=== PATIENT | female | born 1980 ===

== ENCOUNTER → 2020-01-08 13:36 | Outpatient (BNVA) | payer OTHER, SELFPAY | PROVIDERS: PCP Internal Medicine; Referring Provider Internal Medicine; Visit Provider Nurse Practitioner | DX: Z76.89 Persons encountering health services in other specified circumstances (principal) | CPT/HCPCS: 99214 ==

== ENCOUNTER → 2020-01-10 09:26 | Outpatient (REF) | payer OTHER, SELFPAY ==
--- NOTE | 2020-01-10 09:45 | ECG_ITS ---
Test Reason : RBBB Blood Pressure : / mmHG Vent. Rate : 076 BPM Atrial Rate : 076 BPM P-R Int : 116 ms QRS Dur : 080 ms QT Int : 400 ms P-R-T Axes : 077 043 -07 degrees QTc Int : 450 ms Normal sinus rhythm Nonspecific T wave abnormality Abnormal ECG When compared with ECG of 19-JUL-2019 02:36, Right bundle branch block is no longer Present Referred By: Trisha Aaron Electronically Signed By:JANA TUCKER
[2020-01-10 11:05] LABS: Alanine Aminotransferase 19 U/L (0-31); Alkaline Phosphatase 82 U/L (39-117); Anion Gap 13 (12-20); Aspartate Amino Transferase 13 U/L (5-31); Bilirubin Total 0.5 mg/dL (0.0-1.0); Blood Urea Nitrogen 15 mg/dL (9-16); Calcium 8.8 mg/dL (8.4-10.2); Carbon Dioxide 26 mmol/L (22-29); Chloride 106 mmol/L (96-108); Cholesterol 133 mg/dL; Estimated Glomerular Filt Rate > 60; Glucose Fasting 100 mg/dL (60-99); HDL Cholesterol 35 mg/dL; LDL Cholesterol Calculated 65 mg/dl; Potassium 4.7 mmol/l (3.3-5.1); Sodium 140 mmol/L (135-145); Total Protein 7.1 g/dL (6.5-8.0); Triglycerides 167 mg/dL
== END ==
LOC: HO.CARD 09:26
PROVIDERS: PCP Internal Medicine; Visit Provider Internal Medicine
DX: I45.10 Unspecified right bundle-branch block (principal)
CPT/HCPCS: 80053; 80061; 93005; 93010

== ENCOUNTER → 2020-02-09 11:22 | Outpatient (BNVA) | payer OTHER, SELFPAY | PROVIDERS: PCP Internal Medicine; Referring Provider Internal Medicine; Visit Provider Hospitalist | DX: J45.50 Severe persistent asthma, uncomplicated (principal); G47.33 Obstructive sleep apnea (adult) (pediatric); J30.9 Allergic rhinitis, unspecified | CPT/HCPCS: 99212 ==

== ENCOUNTER 2020-02-13 15:40 | Outpatient (REF) | payer OTHER, SELFPAY ==
--- NOTE | 2020-02-13 15:58 | XR_ITS ---
EXAMINATION: RIGHT FOOT AND ANKLE SERIES CLINICAL INFORMATION: Pain in right toes. Pain in right ankle and joints of right foot. COMPARISON: None. TECHNIQUE: AP and oblique views of the right ankle. AP, oblique, and lateral views of the right foot. FINDINGS: There is enthesopathy of the distal Achilles tendon attachment. A small plantar calcaneal spur is present. No widening of the ankle mortise. The distal tibia and fibula are intact. Normal tarsal metatarsal alignment. The metatarsophalangeal and interphalangeal joint spaces are maintained. XR/XR foot RT 2V IMPRESSION: No acute osseous abnormality of the right foot or ankle. Mild degenerative changes as described above.
--- NOTE | 2020-02-13 15:58 | XR_ITS ---
EXAMINATION: RIGHT FOOT AND ANKLE SERIES CLINICAL INFORMATION: Pain in right toes. Pain in right ankle and joints of right foot. COMPARISON: None. TECHNIQUE: AP and oblique views of the right ankle. AP, oblique, and lateral views of the right foot. FINDINGS: There is enthesopathy of the distal Achilles tendon attachment. A small plantar calcaneal spur is present. No widening of the ankle mortise. The distal tibia and fibula are intact. Normal tarsal metatarsal alignment. The metatarsophalangeal and interphalangeal joint spaces are maintained. XR/XR ankle RT 2V IMPRESSION: No acute osseous abnormality of the right foot or ankle. Mild degenerative changes as described above.
[2020-02-13 16:16] LABS: MANUAL DIFF FLAG NO
[2020-02-13 16:17] LABS: Basophils Percent Auto 0.1 % (0-2); Eosinophils Absolute Auto 0.1 X10*3/uL (0.0-0.4); Eosinophils Percent Auto 0.6 % (0-4); Hemoglobin 13.2 g/dl (12.0-16.0); Imm Gran Abs Auto 0.02 X10*3/uL (0.00-0.03); Imm Gran Pct Auto 0.2 % (0.0-0.4); Lymphocytes Absolute Auto 1.5 X10*3/uL (1.2-4.9); Lymphocytes Percent Auto 18.8 % (20-40); Mean Corpuscular HGB Conc 34.7 g/dl (31.0-35.0); Mean Corpuscular Hemoglobin 30.7 pg (27.0-33.0); Mean Corpuscular Volume 88.4 fL (80-98); Mean Platelet Volume 9.3 fL (9.4-12.3); Monocytes Absolute Auto 0.4 X10*3/uL (0.1-1.2); Monocytes Percent Auto 4.8 % (2-11); Neutrophils Absolute Auto 6.2 X10*3/uL (2.0-8.3); Neutrophils Percent Auto 75.5 % (45-73); Platelet Count 377 X10*3/uL (160-400); Red Cell Distribution Width 12.5 % (11.0-16.0); White Blood Count 8.2 X10*3/uL (4.8-10.8)
[2020-02-13 16:47] LABS: Alanine Aminotransferase 30 U/L (0-31); Albumin Level 4.1 g/dL (3.5-5.0); Alkaline Phosphatase 89 U/L (39-117); Anion Gap 12 (12-20); Aspartate Amino Transferase 26 U/L (5-31); Bilirubin Total 0.5 mg/dL (0.0-1.0); Blood Urea Nitrogen 10 mg/dL (9-16); Calcium 8.8 mg/dL (8.4-10.2); Carbon Dioxide 26 mmol/L (22-29); Chloride 103 mmol/L (96-108); Estimated Glomerular Filt Rate > 60; Glucose Random 87 mg/dL (60-115); Sodium 137 mmol/L (135-145); Total Protein 7.4 g/dL (6.5-8.0); Uric Acid 5.6 mg/dL (2.4-5.7)
== END 2020-02-13 15:41 | disposition home or self-care (01) ==
LOC: HO.LAB 15:40
PROVIDERS: PCP Internal Medicine; Visit Provider Internal Medicine
DX: M79.674 Pain in right toe(s) (principal); M25.571 Pain in right ankle and joints of right foot
CPT/HCPCS: 36415; 73600; 73620; 80053; 84550; 85025

== ENCOUNTER → 2020-02-26 16:00 | Outpatient (BNVA) | payer OTHER, SELFPAY | PROVIDERS: PCP Internal Medicine; Referring Provider Internal Medicine; Visit Provider Nurse Practitioner | DX: Z76.89 Persons encountering health services in other specified circumstances (principal) ==

== ENCOUNTER 2020-02-26 23:03 | Emergency (ER) | payer OTHER, SELFPAY ==
[2020-02-26 23:10] VITALS: BP 183/76; PULSE 102; RESP 18; TEMP 37.3; O2SAT 100
[2020-02-26 23:22] VITALS: BMI 42.4
--- NOTE | 2020-02-26 23:31 | XR_ITS ---
Examination: XR ankle LT min 3V, XR ankle RT min 3V Indication: fall Comparison: 02/13/2020 Technique: 3 views of each ankle obtained portably Findings: Right: Bones are normal anatomic alignment. I do not appreciate any acute fracture or dislocation calcaneal heel spurs are seen at the attachment point of the Achilles tendon and plantar aponeurosis. No acute bony destructive lesions. No periosteal reaction. Left: No significant joint effusion or soft tissue swelling. Bones are normal anatomic alignment with no acute fracture or dislocation. Ankle mortise appears to be intact. Calcaneal heel spurs seen at the attachment point of the Achilles tendon and plantar aponeurosis. XR/XR ankle RT min 3V Impression: Calcaneal heel spurs. No acute bony abnormality.
--- NOTE | 2020-02-26 23:31 | XR_ITS ---
EXAMINATION: XR ELBOW, LEFT CLINICAL INFORMATION: Fall COMPARISON: None TECHNIQUE: AP, lateral, and oblique views of the left elbow. FINDINGS: No significant elbow joint effusion. Bones are in normal anatomic alignment. I do not appreciate any acute fracture or dislocation. Surrounding soft tissues unremarkable. XR/XR elbow LT min 3V IMPRESSION: No acute fracture or dislocation.
--- NOTE | 2020-02-26 23:31 | XR_ITS ---
Examination: XR ankle LT min 3V, XR ankle RT min 3V Indication: fall Comparison: 02/13/2020 Technique: 3 views of each ankle obtained portably Findings: Right: Bones are normal anatomic alignment. I do not appreciate any acute fracture or dislocation calcaneal heel spurs are seen at the attachment point of the Achilles tendon and plantar aponeurosis. No acute bony destructive lesions. No periosteal reaction. Left: No significant joint effusion or soft tissue swelling. Bones are normal anatomic alignment with no acute fracture or dislocation. Ankle mortise appears to be intact. Calcaneal heel spurs seen at the attachment point of the Achilles tendon and plantar aponeurosis. XR/XR ankle LT min 3V Impression: Calcaneal heel spurs. No acute bony abnormality.
[2020-02-26] MEDS: oxyCODONE HCl Immed Release 5 MG TABLET PO (23:46)
[2020-02-26] MEDS: Ketorolac Tromethamine 30 MG/ML VIAL IVPUSH (23:54)
--- NOTE | 2020-02-27 01:18 | ED_ITS ---
HPI - Fall General Chief Complaint: Fall Stated Complaint: Fall Time Seen by Provider: 02/26/20 23:28 Source: patient Mode of arrival: EMS History of Present Illness HPI Narrative: Patient states is going down steps down to her basement and fell injuring her ankles and left arm. Denies injury. Denies LOC chest pain or shortness of breath prior or after to fall. Denies current dizziness or change in vision MD complaint: fall Onset (ago): hour(s) Fall from: standing Fall witnessed: no Place fall occurred: home Location of injury - extremities: left: elbow and bilateral: ankle Severity: moderate Severity scale (1-10): 5 Quality: dull Related Data Home Medications Medication Instructions Recorded Confirmed budesonide 0.5 mg/2 mL suspension mg INHALATION BID 01/08/20 02/20/20 for nebulization citalopram 40 mg tablet 40 mg PO DAILY 01/08/20 02/20/20 clonazepam 0.5 mg tablet 0.5 mg PO BID PRN 01/08/20 02/20/20 prazosin 1 mg capsule 1 mg PO BEDTIME PRN 01/08/20 02/20/20 meloxicam 15 mg tablet 15 mg PO DAILY 02/06/20 02/20/20 ondansetron HCl 4 mg tablet mg PO 02/06/20 02/20/20 gabapentin 600 mg tablet 600 mg PO TID 02/09/20 02/20/20 montelukast 10 mg tablet 10 mg PO DAILY 02/09/20 02/20/20 pregabalin 150 mg capsule 150 mg PO BID 02/09/20 02/20/20 zolpidem 10 mg tablet 10 mg PO BEDTIME PRN 02/09/20 02/20/20 Previous Rx's Medication Instructions Recorded hydrocortisone 2.5 % topical cream 1 applic [place] BID #30 g 01/08/20 with perineal applicator albuterol sulfate 90 mcg/actuation 1 - 2 puff INHALATION Q4-6H PRN 30 02/11/20 aerosol inhaler Days #8.5 g budesonide-formoterol HFA 160 2 puff INHALATION BID 30 Days 02/11/20 mcg-4.5 mcg/actuation aerosol #10.2 g inhaler fluticasone propionate 50 2 spray INTRANASAL DAILY 30 Days 02/11/20 mcg/actuation nasal #15.8 ml spray,suspension loratadine 10 mg tablet 10 mg PO DAILY 30 Days #30 tab 02/11/20 roflumilast 500 mcg tablet 500 mcg PO DAILY 30 Days #30 tab 02/11/20 tiotropium bromide 2.5 2 inh INHALATION DAILY 30 Days #4 g 02/11/20 mcg/actuation mist for inhalation triamcinolone acetonide 0.5 % 1 applic TOPICAL DAILY 30 Days #30 02/19/20 topical cream g bisacodyl 5 mg tablet,delayed 10 mg PO BEDTIME 2 Days #4 tab 02/26/20 release pantoprazole 40 mg tablet,delayed 40 mg PO BID 90 Days #180 tab 02/26/20 release polyethylene glycol 3350 17 17 g PO ONCE 1 Days #17 g 02/26/20 gram/dose oral powder Allergies Allergy/AdvReac Type Severity Reaction Status Date / Time Iodinated Contrast Media Allergy Severe ANAPHYLAXIS Verified 02/26/20 16:07 [IV CONTRAST] cyclobenzaprine Allergy Intermediate NUMBNESS Verified 02/26/20 16:07 [From FLEXERIL] gadobutrol [From GADAVIST] Allergy Unknown DIFFICULTY Verified 02/26/20 16:07 BREATHING perfume [PERFUME] Allergy Unknown TRIGGERS Verified 02/26/20 16:07 ASTHMA prednisone Allergy Unknown swelling Verified 02/26/20 16:07 Review of Systems Review of Systems: Constitutional : No Weight loss, No Fever, No Chills, No Night Sweats, No Fatigue, No Malaise ENT/Mouth : No Hearing loss, No Ear Pain, No Nasal Congestion, No Sinus Pain, No Hoarseness, No sore throat, No Rhinorrhea, No Swallowing Difficulty Eyes: No Eye Pain, No Swelling, No Redness, No Foreign Body, No Discharge, No Vision Changes Cardiovascular : No Chest Pain, No SOB, No Dyspnea on Exertion, No Orthopnea, No Edema, No Palpitations Respiratory : No Cough, No Sputum, No Wheezing, No Smoke Exposure, No Dyspnea Gastrointestinal : No Nausea, No Vomiting, No Diarrhea, No Constipation, No abdominal Pain, No Hematochezia, No Melena Genitourinary : no irregular bleeding, No Dysuria, No Urinary Frequency, No Hematuria, No Urinary Incontinence, No Urgency, No Flank Pain, No Urinary Flow Changes, No Hesitancy Musculoskeletal bilateral ankle pain No Myalgias, No Joint Swelling left arm pain Skin : No Skin Lesions, No rash Neuro : No Weakness, No Numbness, No Paresthesias, No Loss of Consciousness, No Dizziness, No Headache Psych : No Anxiety/Panic, No Depression, No SI/HI/AH/VH, No Social Issues, Heme/Lymph: No Bruising, No Bleeding,No Lymphadenopathy Endocrine : No Polyuria, No Polydipsia, No Temperature Intolerance PMFSH Past Medical History Medical History Ankle pain, right Chest pain in adult Chronic allergic rhinitis Fibromyalgia Morbid obesity Surgical History History of carpal tunnel surgery of right wrist History of section History of tubal ligation S/P cholecystectomy Family History Family History Father Oral cancer Thyroid cancer Colon cancer Mother NIDDY (non-insulin dependent diabetes mellitus in young) Gastric ulcer Paternal Grandfather Colon cancer Paternal Uncle Colon cancer Other Family history of colon cancer in father Social History Social History Alcohol intake: never Smoking Status: Never smoker Smoked in Last 30 Days: No Use of substances other than those prescribed or required for medical reasons: No Advance Directives: No Sexual orientation: Straight/Heterosexual Gender identity: female Physical Exam Vital Signs: Vital Signs: Last Vital Signs Temp 99.2 F 02/26/20 23:10 Pulse 102 H 02/26/20 23:10 Resp 18 02/26/20 23:10 BP 183/76 H 02/26/20 23:10 Pulse Ox 100 02/26/20 23:10 Body Mass Index 42.4 Vital signs reviewed Appearance: Alert. Oriented X3. No acute distress. Eyes: Pupils equal, round and reactive to light. ENT: Pharynx normal. Neck: Normal inspection. Neck supple. No lymph nodes noted. No crepitus CVS: Normal heart rate and rhythm. Pulses normal. Normal S1 and S2 Respiratory: No respiratory distress. Breath sounds normal. No Wheezing. No rales Abdomen: Soft and nontender. No rigidity. No distention. good BS x4 Skin: Skin warm and dry. Normal skin color. Normal skin turgor. Extremities: No lower extremity edema. Pain to palpation to bilateral ankles without deformities. Bilateral cap refill intact. Bilateral Achilles tendons intact no deformities. Left elbow pain without deformity neurovascularly intact distally Neurovascular intact to all extremities. No Lacerations. No Rash Neuro: Oriented X 3. No motor deficit. No sensory deficit. Moving all extermities. No slurred speech. Course Course Course Narrative: Left lower leg Lavon wrap placed by [employer]. Post placement reviewed by me with neurovascularly intact. Crutches also fitted by [employer] Patient states has pain medicines at home MDM - Fall MDM Narrative Medical decision making narrative: 39-year-old female with a history fibromyalgia with recent fall, sprain to bilateral ankles and left arm. X-rays negative patient states feels comfortable going Lab Data Attestation: I reviewed the patient's lab results. Discharge Plan Discharge Clinical Impression: Sprain and strain of right ankle, Sprain and strain of left ankle Fall Qualifiers: Encounter type: initial encounter Qualified Code(s): W19.XXXA - Unspecified fall, initial encounter Patient Disposition: Home, Self-Care Instructions: Ankle Sprain (ED) Additional Instructions: Thank you for visiting the emergency department today. If your symptoms worsen or do not resolve completely please return to the emergency department immediately or call 911. if he have any questions please call your primary care physician Prescriptions: No Action triamcinolone acetonide 0.5 % cream 1 applic topical DAILY 30 Days Qty: 30 RF: 0 ondansetron HCl 4 mg tablet PO RF: 0 meloxicam 15 mg tablet 15 mg PO DAILY RF: 0 pregabalin 150 mg capsule 150 mg PO BID RF: 0 clonazepam 0.5 mg tablet 0.5 mg PO BID PRNRF: 0 prazosin 1 mg capsule 1 mg PO BEDTIME PRNRF: 0 citalopram 40 mg tablet 40 mg PO DAILY RF: 0 budesonide 0.5 mg/2 mL suspension for nebulization inhalation BID RF: 0 hydrocortisone [Proctosol HC] 2.5 % cream with perineal applicator 1 applic NJ BID Qty: 30 RF: 3 polyethylene glycol 3350 [Miralax] 17 gram/dose powder 17 g PO ONCE 1 Days Qty: 17 RF: 0 bisacodyl [Dulcolax (bisacodyl)] 5 mg tablet,delayed release (DR/EC) 10 mg PO BEDTIME 2 Days Qty: 4 RF: 0 pantoprazole 40 mg tablet,delayed release (DR/EC) 40 mg PO BID 90 Days Qty: 180 RF: 3 zolpidem 10 mg tablet 10 mg PO BEDTIME PRNRF: 0 montelukast 10 mg tablet 10 mg PO DAILY RF: 0 gabapentin 600 mg tablet 600 mg PO TID RF: 0 albuterol sulfate 90 mcg/actuation HFA aerosol inhaler 1 - 2 puff inhalation Q4-6H PRN (Reason: for dyspnea) 30 Days Qty: 8.5 RF: 11 fluticasone propionate 50 mcg/actuation spray,suspension 2 spray intranasal DAILY 30 Days Qty: 15.8 RF: 11 loratadine 10 mg tablet 10 mg PO DAILY 30 Days Qty: 30 RF: 11 tiotropium bromide 2.5 mcg/actuation mist 2 inh inhalation DAILY 30 Days Qty: 4 RF: 11 roflumilast 500 mcg tablet 500 mcg PO DAILY 30 Days Qty: 30 RF: 11 budesonide-formoterol [Symbicort] 160-4.5 mcg/actuation HFA aerosol inhaler 2 puff inhalation BID 30 Days Qty: 10.2 RF: 0 Referrals: Trisha Hui MD [Primary Care Provider] - 2 days
[2020-02-27 01:24] VITALS: BP 135/93; PULSE 94; RESP 16; TEMP 36.5; O2SAT 98
--- NOTE | 2020-02-27 01:25 | PC.NURSE ---
SUNDAY WRAP APPLY TO PATIENT LEFT ANKLE .
== END 2020-02-27 01:36 | disposition home or self-care (01) ==
PROVIDERS: Emergency Provider Emergency Medicine; PCP Internal Medicine
DX: S93.401A Sprain of unspecified ligament of right ankle, initial encounter (principal); S93.402A Sprain of unspecified ligament of left ankle, initial encounter; M25.572 Pain in left ankle and joints of left foot; M25.571 Pain in right ankle and joints of right foot; W10.9XXA Fall (on) (from) unspecified stairs and steps, initial encounter; Y93.9 Activity, unspecified; Y92.9 Unspecified place or not applicable; Y99.9 Unspecified external cause status; Z79.899 Other long term (current) drug therapy; Z80.0 Family history of malignant neoplasm of digestive organs
CPT/HCPCS: 73080; 73610; 96374; 99284; J1885

== ENCOUNTER 2020-03-07 13:23 | Outpatient (REF) | payer OTHER, SELFPAY ==
--- NOTE | 2020-03-07 13:27 | XR_ITS ---
EXAMINATION: XR ELBOW, LEFT CLINICAL INFORMATION: Pain left elbow. COMPARISON: None TECHNIQUE: AP, lateral, and oblique views of the left elbow. FINDINGS: The bones and soft tissues are normal. No fracture or joint effusion. There is mild spurring along the anterior coronoid processes of the lung. Alignment is anatomic. Joint spaces are maintained. No joint effusion seen XR/XR elbow LT min 3V IMPRESSION: Mild spurring anterior fabi process proximal ulna. There is no visible acute fracture, dislocation or joint effusion.
== END 2020-03-07 13:24 | disposition home or self-care (01) ==
LOC: HO.HMGCX 13:23
PROVIDERS: PCP Internal Medicine; Visit Provider Hospitalist
DX: M25.522 Pain in left elbow (principal)
CPT/HCPCS: 73080

== ENCOUNTER → 2020-03-12 13:27 | Outpatient (BNVA) | payer OTHER, SELFPAY | PROVIDERS: PCP Internal Medicine; Referring Provider Internal Medicine; Visit Provider Hospitalist | DX: K21.9 Gastro-esophageal reflux disease without esophagitis (principal); G47.33 Obstructive sleep apnea (adult) (pediatric); J45.50 Severe persistent asthma, uncomplicated | CPT/HCPCS: 99212 ==

== ENCOUNTER → 2020-03-25 15:03 | Outpatient (BNVA) | payer OTHER, SELFPAY | PROVIDERS: PCP Internal Medicine; Visit Provider Nurse Practitioner | DX: Z13.89 Encounter for screening for other disorder (principal) | CPT/HCPCS: 99212 ==

== ENCOUNTER 2020-04-26 11:21 | Outpatient (REF) | payer OTHER, SELFPAY ==
[2020-04-26 12:00] LABS: MANUAL DIFF FLAG NO
[2020-04-26 12:19] LABS: Basophils Percent Auto 0.3 % (0-2); Eosinophils Percent Auto 0.5 % (0-4); Hematocrit 38.3 % (37-47); Hemoglobin 13.2 g/dl (12.0-16.0); Imm Gran Abs Auto 0.03 X10*3/uL (0.00-0.03); Imm Gran Pct Auto 0.4 % (0.0-0.4); Lymphocytes Absolute Auto 1.3 X10*3/uL (1.2-4.9); Lymphocytes Percent Auto 16.7 % (20-40); Mean Corpuscular HGB Conc 34.5 g/dl (31.0-35.0); Mean Corpuscular Hemoglobin 30.2 pg (27.0-33.0); Mean Corpuscular Volume 87.6 fL (80-98); Monocytes Absolute Auto 0.3 X10*3/uL (0.1-1.2); Monocytes Percent Auto 4.5 % (2-11); Neutrophils Absolute Auto 5.9 X10*3/uL (2.0-8.3); Neutrophils Percent Auto 77.6 % (45-73); Platelet Count 360 X10*3/uL (160-400); Red Blood Count 4.37 X10*6/uL (4.20-5.50); Red Cell Distribution Width 12.9 % (11.0-16.0); White Blood Count 7.6 X10*3/uL (4.8-10.8)
[2020-04-26 13:21] LABS: Erythrocyte Sedimentation Rate 25 MM/HR (0-20)
[2020-04-27 14:11] LABS: IgA 322 mg/dL (47-310); IgG 1792 mg/dL (600-1640); IgM 97 mg/dL (50-300)
[2020-04-27 20:52] LABS: Anti Nuclear Antibody Screen NEGATIVE (NEGATIVE)
== END 2020-04-26 11:22 | disposition home or self-care (01) ==
LOC: HO.LAB 11:21
PROVIDERS: PCP Internal Medicine; Visit Provider Hospitalist
DX: J45.40 Moderate persistent asthma, uncomplicated (principal)
CPT/HCPCS: 36415; 82784; 85025; 85652; 86038; 86039

== ENCOUNTER 2020-05-09 10:56 | Outpatient (REF) | payer OTHER, SELFPAY ==
--- NOTE | ~2020-05-09 | MM_ITS ---
EXAMINATION: MM DIAGNOSTIC DIGITAL BREAST TOMOSYNTHESIS, BILATERAL CLINICAL INFORMATION: Right breast lump/pain. The lifetime risk of breast cancer based on the Tyrer-Cuzick Model is 11.5%. COMPARISON: Mammography: None TECHNIQUE: Digital breast tomosynthesis is performed in both the craniocaudal and mediolateral oblique views along with computer-aided detection (CAD). Synthesized 2D images are generated from the tomosynthesis. FINDINGS: There are scattered areas of fibroglandular density (ACR BI-RADS breast composition Category b). In region of palpable abnormality no suspicious lesion is appreciated. There is multiplicity and bilaterality of similar-appearing calcifications as well as some vascular calcifications. There are also noted to be a few circumscribed densities with appearance of fatty clefts likely representing intramammary lymph nodes upper outer aspect of the right breast. We will await to see if previous mammograms performed in [place] can be obtained for comparison. If previous studies cannot be obtained, then recommend six-month follow-up right breast mammogram. Targeted ultrasound evaluation to region of palpable abnormality anterior right breast did not demonstrate any abnormal cystic or solid masses. No region of abnormal distal sound shadowing appreciated. Results are provided to the patient at time of visit by the technologist. MM/MM tomosynthesis diagnostic BI IMPRESSION: Probable benign findings. Compare with previous studies to assure stability. If old studies cannot be obtained, then six-month follow-up right breast mammogram is suggested. ASSESSMENT: BI-RADS 3: Probably Benign. RECOMMENDATION: Comparison with outside studies. If outside studies cannot be obtained to ensure stability, then six-month follow-up right breast mammogram is suggested. This patient's information was entered into a reminder system with a target due date for their next mammogram.
--- NOTE | ~2020-05-09 | US_ITS ---
EXAMINATION: US DIAGNOSTIC ULTRASOUND BREAST, RIGHT CLINICAL INFORMATION: Palpable lump/pain retroareolar region right breast. COMPARISON: None. TECHNIQUE: Ultrasound of the breast is performed with real-time curry scale imaging and color Doppler. FINDINGS: Targeted ultrasound evaluation to region of palpable abnormality anterior right breast did not demonstrate any abnormal cystic or solid masses. No region of abnormal distal sound shadowing appreciated. Results are provided to the patient at time of visit by the technologist. US/US breast RT limited IMPRESSION: Probable benign findings. Compare with previous studies to assure stability. If old studies cannot be obtained then six-month follow-up right breast mammogram is suggested. ASSESSMENT: BI-RADS 3: Probably Benign RECOMMENDATION: Comparison with outside studies. If outside studies cannot be obtained to ensure stability then six-month follow-up right breast mammogram is suggested. This patient's information was entered into a reminder system with a target due date for their next mammogram.
== END 2020-05-09 10:57 | disposition home or self-care (01) ==
LOC: HO.MAMMO 10:56
PROVIDERS: Visit Provider Internal Medicine
DX: N63.15 Unspecified lump in the right breast, overlapping quadrants (principal)
CPT/HCPCS: 76642; 77062; 77066

== ENCOUNTER 2020-05-28 16:00 | Outpatient (REF) | payer OTHER, SELFPAY ==
--- NOTE | ~2020-05-28 | XR_ITS ---
EXAMINATION: XR HAND RT MIN 3V, XR ELBOW RT MIN 3V CLINICAL INFORMATION: Pain in right hand. Pain in right elbow. COMPARISON: CT right elbow 05/03/2019 TECHNIQUE: 3 views of the right elbow. 3 views of the right hand FINDINGS: Right hand is intact. No fracture or dislocation seen. Normal mineralization and alignment. No fracture or dislocation of the right elbow. No joint effusion seen. There is degenerative irregularity of the coronoid process of the ulna. There is subtle irregularity of the capitellum at the site of the previously seen suspected osteochondral fragment. XR/XR elbow RT min 3V IMPRESSION: No acute osseous abnormality. Degenerative changes of the elbow as described above involving the coronoid process and capitellum. Normal right hand.
--- NOTE | ~2020-05-28 | XR_ITS ---
EXAMINATION: XR HAND RT MIN 3V, XR ELBOW RT MIN 3V CLINICAL INFORMATION: Pain in right hand. Pain in right elbow. COMPARISON: CT right elbow 05/03/2019 TECHNIQUE: 3 views of the right elbow. 3 views of the right hand FINDINGS: Right hand is intact. No fracture or dislocation seen. Normal mineralization and alignment. No fracture or dislocation of the right elbow. No joint effusion seen. There is degenerative irregularity of the coronoid process of the ulna. There is subtle irregularity of the capitellum at the site of the previously seen suspected osteochondral fragment. XR/XR hand RT min 3V IMPRESSION: No acute osseous abnormality. Degenerative changes of the elbow as described above involving the coronoid process and capitellum. Normal right hand.
== END 2020-05-28 16:01 | disposition home or self-care (01) ==
LOC: HO.XRAY 16:00
PROVIDERS: PCP Internal Medicine; Visit Provider Internal Medicine
DX: M79.641 Pain in right hand (principal); M25.521 Pain in right elbow
CPT/HCPCS: 73080; 73130

== ENCOUNTER 2020-05-29 13:07 | Outpatient (REF) | payer OTHER, SELFPAY ==
--- NOTE | ~2020-05-29 | US_ITS ---
EXAMINATION: US PELVIS COMPLETE US PELVIS ENDOVAGINAL CLINICAL INFORMATION: Irregular menses COMPARISON: 01/09/2019 TECHNIQUE: Transabdominal and transvaginal images of the pelvis were obtained. FINDINGS: UTERUS: Anteverted, anteflexed. Normal size and contour, measuring 8.3 x 4.2 x 4.8 cm (cervix to fundus x AP x transverse). There is an irregular collection of fluid in the endometrial canal. The endometrium is at most 4 mm in thickness. RIGHT OVARY: Normal size and echogenicity measuring 3.4 x 2.2 x 2.2 cm. 8 mL volume. Physiologic follicular cysts are present. LEFT OVARY: Normal size and echogenicity measuring 3.0 x 2.1 x 1.9 cm. 6 mL volume. There is a 1.7 cm cyst with low-level internal echoes consistent with a corpus luteum cyst. FREE FLUID: No pelvic free fluid. US/US pelvic complete IMPRESSION: There is an irregular collection of fluid in the endometrial canal, presumably blood products in the setting of irregular menses. The endometrial stripe is thin, 4 mm. Likely corpus luteum cyst in the left ovary.
--- NOTE | ~2020-05-29 | US_ITS ---
EXAMINATION: US PELVIS COMPLETE US PELVIS ENDOVAGINAL CLINICAL INFORMATION: Irregular menses COMPARISON: 01/09/2019 TECHNIQUE: Transabdominal and transvaginal images of the pelvis were obtained. FINDINGS: UTERUS: Anteverted, anteflexed. Normal size and contour, measuring 8.3 x 4.2 x 4.8 cm (cervix to fundus x AP x transverse). There is an irregular collection of fluid in the endometrial canal. The endometrium is at most 4 mm in thickness. RIGHT OVARY: Normal size and echogenicity measuring 3.4 x 2.2 x 2.2 cm. 8 mL volume. Physiologic follicular cysts are present. LEFT OVARY: Normal size and echogenicity measuring 3.0 x 2.1 x 1.9 cm. 6 mL volume. There is a 1.7 cm cyst with low-level internal echoes consistent with a corpus luteum cyst. FREE FLUID: No pelvic free fluid. US/US transvaginal IMPRESSION: There is an irregular collection of fluid in the endometrial canal, presumably blood products in the setting of irregular menses. The endometrial stripe is thin, 4 mm. Likely corpus luteum cyst in the left ovary.
== END 2020-05-29 13:08 | disposition home or self-care (01) ==
LOC: HO.US 13:07
PROVIDERS: Visit Provider Obstetrics & Gynecology
DX: N92.6 Irregular menstruation, unspecified (principal)
CPT/HCPCS: 76830; 76856

== ENCOUNTER → 2020-06-20 14:46 | Outpatient (BNVA) | payer OTHER, SELFPAY | PROVIDERS: PCP Internal Medicine; Visit Provider Hospitalist | DX: J45.50 Severe persistent asthma, uncomplicated (principal); G47.33 Obstructive sleep apnea (adult) (pediatric); E66.01 Morbid (severe) obesity due to excess calories; Z68.41 Body mass index [BMI] 40.0-44.9, adult; Z71.3 Dietary counseling and surveillance; Z99.89 Dependence on other enabling machines and devices | CPT/HCPCS: 99212 ==

== ENCOUNTER → 2020-08-27 10:06 | Outpatient (BNVA) | payer OTHER, SELFPAY | PROVIDERS: PCP Internal Medicine; Visit Provider Nurse Practitioner ==

== ENCOUNTER 2020-08-28 14:23 | Outpatient (REF) | payer OTHER, SELFPAY ==
--- NOTE | ~2020-08-28 | XR_ITS ---
EXAMINATION: XR ELBOW, RIGHT CLINICAL INFORMATION: Pain. COMPARISON: None TECHNIQUE: AP, lateral, and oblique views of the right elbow. FINDINGS: The bones and soft tissues are normal. No fracture or joint effusion. Alignment is anatomic. Joint spaces are maintained. XR/XR elbow RT min 3V IMPRESSION: Normal right elbow.
== END 2020-08-28 14:24 | disposition home or self-care (01) ==
LOC: HO.HOSX 14:23
PROVIDERS: PCP Internal Medicine; Visit Provider Physician Assistant
DX: M25.521 Pain in right elbow (principal); G56.10 Other lesions of median nerve, unspecified upper limb; M77.01 Medial epicondylitis, right elbow
CPT/HCPCS: 73080; 99212

== ENCOUNTER 2020-10-09 08:55 | Outpatient (REF) | payer OTHER, SELFPAY ==
--- NOTE | 2020-10-09 08:58 | EMG_ITS ---
This is a 40-year-old woman with bilateral upper extremity pain and numbness with the right being worse than the left. No list of medications available. Neurological examination is normal. IMPRESSION: Rule out carpal tunnel syndrome, rule out cervical radiculopathy. Nerve conduction EMG study: Normal electrodiagnostic study of both upper extremity with no evidence of carpal tunnel syndrome or nerve entrapment. Normal EMG of the right C5-T1 innervated muscles. MD RUFINO Nur/THUY / [id number]
== END 2020-10-09 08:56 | disposition home or self-care (01) ==
LOC: HO.NEURO 08:55
PROVIDERS: Visit Provider Physician Assistant
DX: R20.0 Anesthesia of skin (principal); R20.2 Paresthesia of skin
CPT/HCPCS: 95885; 95913

== ENCOUNTER 2020-11-21 14:09 | Outpatient (REF) | payer OTHER, SELFPAY ==
--- NOTE | ~2020-11-21 | XR_ITS ---
EXAMINATION: XR CHEST CLINICAL INFORMATION: Uncomplicated asthma COMPARISON: None TECHNIQUE: 2 views of the chest were obtained. FINDINGS: Mild peribronchial thickening consistent with airway inflammation. No infiltrate. No significant abnormality is otherwise noted involving the heart, lungs, mediastinum, bony thorax or soft tissues. XR/XR chest 2V IMPRESSION: Findings consistent with sinus airway disease. No infiltrate.
== END 2020-11-21 14:10 | disposition home or self-care (01) ==
LOC: HO.XRAY 14:09
PROVIDERS: PCP Internal Medicine; Visit Provider Hospitalist
DX: J45.51 Severe persistent asthma with (acute) exacerbation (principal); G47.33 Obstructive sleep apnea (adult) (pediatric); E66.01 Morbid (severe) obesity due to excess calories; J40 Bronchitis, not specified as acute or chronic; J18.0 Bronchopneumonia, unspecified organism
CPT/HCPCS: 71046; 99212

== ENCOUNTER → 2020-12-05 09:47 | Outpatient (BNVA) | payer OTHER, SELFPAY | PROVIDERS: PCP Internal Medicine; Visit Provider Nurse Practitioner Family | DX: M79.7 Fibromyalgia (principal); M54.5 Low back pain | CPT/HCPCS: 99212 ==

== ENCOUNTER → 2020-12-06 10:30 | Outpatient (BNVA) | payer OTHER, SELFPAY | PROVIDERS: PCP Internal Medicine; Visit Provider Hospitalist | DX: J45.51 Severe persistent asthma with (acute) exacerbation (principal); G47.33 Obstructive sleep apnea (adult) (pediatric); E66.01 Morbid (severe) obesity due to excess calories; J01.00 Acute maxillary sinusitis, unspecified | CPT/HCPCS: 99212 ==

== ENCOUNTER 2021-01-30 14:45 | Outpatient (REF) | payer OTHER, SELFPAY | END 2021-01-30 14:46 | disposition home or self-care (01) | LOC: HO.XRAY 14:45 | PROVIDERS: PCP Internal Medicine; Visit Provider Hospitalist | DX: Z13.89 Encounter for screening for other disorder (principal) ==

== ENCOUNTER 2021-02-11 13:05 | Outpatient (REF) | payer OTHER, SELFPAY ==
--- NOTE | ~2021-02-11 | MM_ITS ---
EXAMINATION: MM DIAGNOSTIC DIGITAL BREAST TOMOSYNTHESIS, BILATERAL US DIAGNOSTIC ULTRASOUND BREAST, LEFT CLINICAL INFORMATION: Left breast pain retroareolar and periareolar 3:00 position for approximately 1 month. No palpable mass, erythema, or discharge. Also follow-up probable benign parenchymal asymmetries on right, initially noted at new baseline diagnostic exam. The lifetime risk of breast cancer based on the Tyrer-Cuzick Model is 14%. COMPARISON: Mammography: 05/09/2020 (diagnostic, new baseline, BI-RADS 3). TECHNIQUE: Digital breast tomosynthesis is performed in both the craniocaudal and mediolateral oblique views along with computer-aided detection (CAD). Synthesized 2D images are generated from the tomosynthesis. Additional views are obtained: Left MLO, spot right CC x2, spot right exaggerated CC, spot right ML. Ultrasound left breast is targeted to the 2:00 through 6:00 position and periareolar breast. Grayscale imaging and color Doppler are performed without and with harmonics. FINDINGS: Mammography: There are scattered areas of fibroglandular density (ACR BI-RADS breast composition Category b). Parenchymal pattern is similar to prior exams. There is no developing density or interval mass or architectural abnormality. There are scattered punctate round calcifications again seen in each breast. No increasing calcifications. The fibronodular asymmetries mid outer right breast on CC view are stable. Nodularity mid outer left breast is stable to decreased from new baseline exam 05/09/2020. The axilla and skin contours are unremarkable. There is no skin thickening or coarsening of the Quentin's ligaments. Ultrasound: Ultrasound left breast demonstrates no solid mass, duct ectasia, or architectural abnormality. There is no skin thickening or edema tracking in the soft tissue planes. No hyperemia on color Doppler. There is an oval mildly complicated cyst mid 3:00 position 9 cm from nipple corresponding to the stable to decreased nodularity on mammography and measuring 1.6 x 1.3 x 0.4 cm. There are some thin internal avascular septations. There is increased through-transmission of sound and no associated color flow. The cyst appears more posterior than the area of patient's mastodynia complaint. Management: Preliminary results are discussed with the patient at time of visit, using an diplomatic interpreter/translator. MM/MM tomosynthesis diagnostic BI IMPRESSION: 1. Mammography shows no significant change from prior new baseline exam 05/09/2020. 2. Ultrasound left breast shows mildly complicated cyst mid 3:00 position left breast 1.6 x 0.4 cm corresponding to stable to decreased nodularity on mammography. ASSESSMENT: BI-RADS 2: Benign RECOMMENDATION: 1. Patient's left breast pain may be managed based on the clinical impression. 2. Otherwise, routine annual screening mammography. This patient's information was entered into a reminder system with a target due date for their next mammogram.
== END 2021-02-11 13:06 | disposition home or self-care (01) ==
LOC: HO.MAMMO 13:05
PROVIDERS: Visit Provider Internal Medicine
DX: N64.4 Mastodynia (principal)
CPT/HCPCS: 76642; 77061; 77062; 77065; 77066

== ENCOUNTER → 2021-03-04 14:58 | Outpatient (BNVA) | payer OTHER, SELFPAY | PROVIDERS: PCP Internal Medicine; Visit Provider Hospitalist | DX: J45.51 Severe persistent asthma with (acute) exacerbation (principal); G47.33 Obstructive sleep apnea (adult) (pediatric); Z88.8 Allergy status to other drugs, medicaments and biological substances; Z91.041 Radiographic dye allergy status; J30.9 Allergic rhinitis, unspecified; Z79.899 Other long term (current) drug therapy; Z99.89 Dependence on other enabling machines and devices | CPT/HCPCS: 99212 ==

== ENCOUNTER 2021-04-23 15:00 | Outpatient (REF) | payer OTHER, SELFPAY ==
--- NOTE | ~2021-04-23 | XR_ITS ---
EXAMINATION: XR CHEST CLINICAL INFORMATION: Cough COMPARISON: Previous chest x-ray most recent November 2020 TECHNIQUE: Frontal view of the chest was obtained. FINDINGS: The cardiac and mediastinal contours are stable. The lungs are clear. There is no pleural effusion or pneumothorax. There are degenerative changes of the spine. XR/XR chest 1V IMPRESSION: No evidence for acute disease in the chest.
[2021-04-23 15:26] LABS: MANUAL DIFF FLAG NO
[2021-04-23 15:37] LABS: Basophils Percent Auto 0.1 % (0-2); Eosinophils Absolute Auto 0.1 X10*3/uL (0.0-0.4); Eosinophils Percent Auto 1.4 % (0-4); Hematocrit 38.6 % (37.0-47.0); Hemoglobin 13.6 g/dl (12.0-16.0); Imm Gran Abs Auto 0.05 X10*3/uL (0.00-0.03); Imm Gran Pct Auto 0.7 % (0.0-0.4); Lymphocytes Absolute Auto 1.7 X10*3/uL (1.2-4.9); Mean Corpuscular HGB Conc 35.2 g/dl (31.0-35.0); Mean Corpuscular Hemoglobin 30.8 pg (27.0-33.0); Mean Corpuscular Volume 87.5 fL (80.0-98.0); Mean Platelet Volume 8.9 fL (9.4-12.3); Monocytes Absolute Auto 0.4 X10*3/uL (0.1-1.2); Monocytes Percent Auto 4.7 % (2-11); Neutrophils Absolute Auto 5.2 x10*3/uL (2.0-8.3); Neutrophils Percent Auto 70.1 % (45-73); Platelet Count 321 X10*3/uL (160-400); Red Blood Count 4.41 X10*6/uL (4.20-5.50); Red Cell Distribution Width 11.8 % (11.0-16.0); White Blood Count 7.4 X10*3/uL (4.8-10.8)
[2021-04-23 16:03] LABS: Alanine Aminotransferase 25 U/L (0-31); Alkaline Phosphatase 86 U/L (39-117); Anion Gap 12 (12-20); Aspartate Amino Transferase 17 U/L (5-31); Bilirubin Total 0.5 mg/dL (0.0-1.0); Blood Urea Nitrogen 12 mg/dL (9-16); Calcium 9.3 mg/dL (8.4-10.2); Carbon Dioxide 26 mmol/L (22-29); Chloride 106 mmol/L (96-108); Estimated Glomerular Filt Rate > 60; Glucose Random 96 mg/dL (60-115); Potassium 3.9 mmol/L (3.3-5.1); Sodium 140 mmol/L (135-145); Total Protein 7.8 g/dL (6.5-8.0)
[2021-04-23 16:14] LABS: Erythrocyte Sedimentation Rate 25 MM/HR (0-20)
[2021-04-25 03:02] LABS: Immunoglobulin E 21 kU/L (<OR=114)
[2021-04-25 13:41] LABS: IgA 329 mg/dL (47-310); IgG 1746 mg/dL (600-1640); IgM 98 mg/dL (50-300)
== END 2021-04-23 15:01 | disposition home or self-care (01) ==
LOC: HO.XRAY 15:00
PROVIDERS: Absent Provider Nurse Practitioner Acute Care; PCP Internal Medicine; Referring Provider Internal Medicine; Visit Provider Hospitalist
DX: J45.901 Unspecified asthma with (acute) exacerbation (principal); R05.9 Cough, unspecified; J32.9 Chronic sinusitis, unspecified
CPT/HCPCS: 36415; 71045; 80053; 82784; 82785; 85025; 85652

== ENCOUNTER → 2021-04-25 14:02 | Outpatient (BNVA) | payer OTHER, SELFPAY | PROVIDERS: PCP Internal Medicine; Visit Provider Hospitalist | DX: J45.51 Severe persistent asthma with (acute) exacerbation (principal); J01.00 Acute maxillary sinusitis, unspecified; G47.33 Obstructive sleep apnea (adult) (pediatric) | CPT/HCPCS: 99212 ==

== ENCOUNTER → 2021-06-05 15:14 | Outpatient (BNVA) | payer OTHER, SELFPAY | PROVIDERS: PCP Internal Medicine; Visit Provider Hospitalist | DX: J45.50 Severe persistent asthma, uncomplicated (principal); J44.9 Chronic obstructive pulmonary disease, unspecified; J32.9 Chronic sinusitis, unspecified; J30.9 Allergic rhinitis, unspecified; R07.81 Pleurodynia; E66.01 Morbid (severe) obesity due to excess calories; G47.33 Obstructive sleep apnea (adult) (pediatric); R40.0 Somnolence; Z68.41 Body mass index [BMI] 40.0-44.9, adult; Z88.8 Allergy status to other drugs, medicaments and biological substances; Z91.041 Radiographic dye allergy status; Z99.89 Dependence on other enabling machines and devices | CPT/HCPCS: 99212 ==

== ENCOUNTER 2021-06-06 13:12 | Outpatient (REF) | payer OTHER, SELFPAY ==
--- NOTE | ~2021-06-06 | XR_ITS ---
EXAMINATION: XR CHEST CLINICAL INFORMATION: R07.81 - Pleurodynia COMPARISON: Chest radiographs 04/23/2021, 11/21/2020 TECHNIQUE: 2 views of the chest were obtained. FINDINGS: The lungs are clear. There is no pneumothorax, pleural reaction, infiltrate, or effusion. The heart is within normal size. The hilar and mediastinal contours are unremarkable. No acute bony abnormality. Mild degenerative changes again seen thoracic spine. XR/XR chest 2V IMPRESSION: Unremarkable examination.
[2021-06-06 13:35] LABS: MANUAL DIFF FLAG NO
[2021-06-06 13:44] LABS: Basophils Percent Auto 0.1 % (0-2); Eosinophils Absolute Auto 0.1 X10*3/uL (0.0-0.4); Eosinophils Percent Auto 0.9 % (0-4); Hematocrit 38.4 % (37.0-47.0); Hemoglobin 13.3 g/dl (12.0-16.0); Imm Gran Abs Auto 0.04 X10*3/uL (0.00-0.03); Imm Gran Pct Auto 0.6 % (0.0-0.4); Lymphocytes Absolute Auto 1.6 X10*3/uL (1.2-4.9); Lymphocytes Percent Auto 22.6 % (20-40); Mean Corpuscular HGB Conc 34.6 g/dl (31.0-35.0); Mean Corpuscular Hemoglobin 30.9 pg (27.0-33.0); Mean Corpuscular Volume 89.3 fL (80.0-98.0); Mean Platelet Volume 8.8 fL (9.4-12.3); Monocytes Absolute Auto 0.4 X10*3/uL (0.1-1.2); Monocytes Percent Auto 5.1 % (2-11); Neutrophils Percent Auto 70.7 % (45-73); Platelet Count 340 X10*3/uL (160-400)
[2021-06-06 14:14] LABS: Alanine Aminotransferase 19 U/L (0-31); Alkaline Phosphatase 88 U/L (39-117); Anion Gap 9 (12-20); Aspartate Amino Transferase 16 U/L (5-31); Bilirubin Total 0.7 mg/dL (0.0-1.0); Blood Urea Nitrogen 11 mg/dL (9-16); C Reactive Protein 1.03 mg/dL (< or = 0.50); Calcium 9.4 mg/dL (8.4-10.2); Carbon Dioxide 29 mmol/L (22-29); Chloride 103 mmol/L (96-108); Cholesterol 150 mg/dL; Estimated Glomerular Filt Rate > 60; Glucose Fasting 81 mg/dL (60-99); HDL Cholesterol 38 mg/dL; LDL Cholesterol Calculated 88 mg/dl; Potassium 4.3 mmol/L (3.3-5.1); Sodium 137 mmol/L (135-145); Total Protein 7.6 g/dL (6.5-8.0); Triglycerides 120 mg/dL
[2021-06-06 14:20] LABS: B Type Natriuretic Peptide 19 pg/mL (<100)
[2021-06-06 17:40] LABS: Erythrocyte Sedimentation Rate 17 MM/HR (0-20)
[2021-06-11 02:37] LABS: Vitamin D 25-OH, D2 <4 ng/mL; Vitamin D 25-OH, D3 11 ng/mL; Vitamin D 25-OH, Total 11 ng/mL (30-100)
== END 2021-06-06 13:13 | disposition home or self-care (01) ==
LOC: HO.LAB 13:12
PROVIDERS: Absent Provider Hospitalist; PCP Internal Medicine; Visit Provider Internal Medicine
DX: R60.0 Localized edema (principal); M25.50 Pain in unspecified joint; D64.9 Anemia, unspecified; E78.5 Hyperlipidemia, unspecified; E55.9 Vitamin D deficiency, unspecified; J32.9 Chronic sinusitis, unspecified; R07.81 Pleurodynia; R35.0 Frequency of micturition
CPT/HCPCS: 36415; 71046; 80053; 80061; 82306; 83880; 85025; 85652; 86140

== ENCOUNTER → 2021-06-17 14:45 | Outpatient (BNVA) | payer OTHER, SELFPAY | PROVIDERS: PCP Internal Medicine; Visit Provider Internal Medicine | DX: J45.909 Unspecified asthma, uncomplicated (principal); R05.9 Cough, unspecified; J30.9 Allergic rhinitis, unspecified; E66.01 Morbid (severe) obesity due to excess calories; G47.33 Obstructive sleep apnea (adult) (pediatric); Z99.89 Dependence on other enabling machines and devices | CPT/HCPCS: 99212 ==

== ENCOUNTER → 2021-07-03 15:31 | Outpatient (BNVA) | payer OTHER, SELFPAY | PROVIDERS: PCP Internal Medicine; Visit Provider Hospitalist | DX: J45.51 Severe persistent asthma with (acute) exacerbation (principal); G47.33 Obstructive sleep apnea (adult) (pediatric); J01.00 Acute maxillary sinusitis, unspecified | CPT/HCPCS: 99212 ==

== ENCOUNTER 2021-08-13 10:41 | Emergency (ER) | payer OTHER, SELFPAY ==
--- NOTE | ~2021-08-13 | XR_ITS ---
EXAMINATION: XR CHEST CLINICAL INFORMATION: Shortness of breath, cough. COMPARISON: 06/06/2021 chest radiographs. TECHNIQUE: 2 views of the chest were obtained. FINDINGS: No significant abnormality is noted involving the heart, lungs, mediastinum, bony thorax or soft tissues. XR/XR chest 2V IMPRESSION: No acute cardiopulmonary process.
[2021-08-13 10:59] VITALS: BP 108/88; PULSE 86; RESP 20; TEMP 36.9; O2SAT 99; BMI 43.9
[2021-08-13 11:29] LABS: COVID-19 Test Negative (Negative); IDNOW Serial# 16C4AD1C; IDNOW Serial# 55D5AD1C; Influenza A Negative (Negative); Influenza B2 Negative (Negative)
[2021-08-13] MEDS: Albuterol Sulfate (0.083%) 2.5 MG/3 ML VIAL.NEB 5 MG INHALE (12:55)
[2021-08-13 12:56] VITALS: PULSE 72; RESP 22; O2SAT 98
--- NOTE | 2021-08-13 13:17 | ED_ITS ---
HPI - URI/Sore Throat General Chief Complaint: Upper Respiratory Symptoms Stated Complaint: asthma Time Seen by Provider: 08/13/21 12:34 Source: patient and family Mode of arrival: ambulatory Limitations: language barrier ([place]-speaking) History of Present Illness MD elicited complaint: fever, cough, rhinorrhea and nasal congestion Onset (ago): week(s) (1) Consistency: constant and progressively worsening Severity: moderate Description of mucous: clear, watery and yellow Able to tolerate fluids by mouth: Yes Exacerbating factors: other (coughing ) Relieving factors: nothing Context: sick contacts (Daughter with similar symptoms) Associated symptoms: fever, chills, myalgias, headache, rhinorrhea, nasal congestion and cough Treatments prior to arrival: none Related Data Home Medications Medication Instructions Recorded Confirmed budesonide 0.5 mg/2 mL suspension mg INHALATION BID 01/08/20 06/17/21 for nebulization citalopram 40 mg tablet 40 mg PO DAILY 01/08/20 06/17/21 meloxicam 15 mg tablet 15 mg PO DAILY 02/06/20 06/17/21 ondansetron HCl 4 mg tablet mg PO 02/06/20 06/17/21 zolpidem 10 mg tablet 10 mg PO BEDTIME PRN 02/09/20 06/17/21 prazosin 1 mg capsule 1 mg PO BEDTIME 03/12/20 06/17/21 ibuprofen 800 mg tablet 1 tab PO BID PRN 04/10/20 06/17/21 clonazepam 1 mg tablet 1 mg PO BID PRN 04/25/21 06/17/21 Previous Rx's Medication Instructions Recorded walker #1 ea 08/02/20 linaclotide 72 mcg capsule 72 mcg PO QAM 30 Days #30 cap 08/27/20 (Linzess) Proctosol HC 2.5 % topical cream See Rx Instructions FL BID 30 Days 09/03/20 perineal applicator g NS (hydrocortisone) meclizine 25 mg tablet 25 mg PO TID PRN 7 Days #21 tab 09/30/20 sumatriptan succinate 25 mg tablet 25 mg PO Q2-4H PRN 30 Days #9 tab 10/23/20 pantoprazole 40 mg tablet,delayed 40 mg PO DAILY 90 Days #90 tab 02/05/21 release montelukast 10 mg tablet 10 mg PO DAILY #30 tab 02/22/21 albuterol sulfate 2.5 mg (3 mL) INHALATION Q4H PRN 03/04/21 30 Days #360 ml loratadine 10 mg tablet 10 mg PO DAILY 30 Days #30 tab 03/04/21 hydrochlorothiazide 12.5 mg tablet 12.5 mg PO DAILY #90 tab 04/21/21 fluticasone propionate 50 2 spray INTRANASAL DAILY 30 Days 04/23/21 mcg/actuation nasal #15.8 ml spray,suspension guaifenesin 600 mg tablet, 600 mg PO DAILY 7 Days #7 tab 04/23/21 extended release 12 hr benzonatate 200 mg capsule 200 mg PO BID PRN 30 Days #60 cap 04/25/21 ProAir HFA 90 mcg/actuation 2 inh INHALATION Q6H PRN 30 Days 06/05/21 aerosol inhaler (albuterol sulfate) #8.5 g NS roflumilast 500 mcg tablet 500 mcg PO DAILY 30 Days #30 tab 06/05/21 (Daliresp) pseudoephedrine HCl 120 mg 120 mg PO Q12H 14 Days #28 tab 06/10/21 tablet,extended release (Nasal Decongestant (pseudoephedrine)) cholecalciferol (vitamin D3) 50 50 mcg PO DAILY 90 Days #90 cap 06/11/21 mcg (2,000 unit) capsule guaifenesin 600 mg tablet, 600 mg PO Q12H PRN 7 Days #14 tab 06/16/21 extended release 12 hr (Mucinex) doxycycline hyclate 100 mg tablet 100 mg PO BID 10 Days #20 tab 06/17/21 prednisone 20 mg tablet 20 mg PO BID 10 Days #20 tab 06/17/21 Symbicort 160 mcg-4.5 2 puff INHALATION BID 30 Days 06/19/21 mcg/actuation HFA aerosol inhaler #10.2 g NS (budesonide-formoterol) tiotropium bromide 2.5 2 inh PO DAILY #4 ml 06/19/21 mcg/actuation mist for inhalation (Spiriva Respimat) azelastine 137 mcg (0.1 %) nasal 2 spray INTRANASAL BID 30 Days #30 07/03/21 spray aerosol ml pseudoephedrine HCl 120 mg 120 mg PO Q12H 30 Days #60 tab 07/03/21 tablet,extended release pregabalin 150 mg capsule 150 mg PO BID 30 Days #60 cap 08/04/21 albuterol sulfate 0.63 mg/3 mL 0.63 mg (3 mL) INHALATION QID PRN 08/13/21 solution for nebulization #75 ml albuterol sulfate 90 mcg/actuation 1 inh INHALATION QID PRN #8.5 g 08/13/21 aerosol inhaler azithromycin 250 mg tablet See Rx Instructions .ROUTE 08/13/21 .COMPLEX #6 tab codeine 10 mg-guaifenesin 100 mg/5 5 ml PO Q6H PRN #120 ml 08/13/21 mL oral liquid (Guaifenesin AC) nebulizers (AeroEclipse II #1 ea 08/13/21 Nebulizer) Allergies Allergy/AdvReac Type Severity Reaction Status Date / Time Iodinated Contrast Media Allergy Severe ANAPHYLAXIS Verified 07/03/21 15:43 [IV CONTRAST] cyclobenzaprine Allergy Intermediate NUMBNESS Verified 07/03/21 15:43 [From FLEXERIL] gadobutrol [From GADAVIST] Allergy Intermediate DIFFICULTY Verified 07/03/21 15:43 BREATHING perfume [PERFUME] Allergy Intermediate TRIGGERS Verified 07/03/21 15:43 ASTHMA prednisone Allergy Intermediate swelling Verified 07/03/21 15:43 Review of Systems Review of Systems: Constitutional : + fever/chills/fatigue/malaise, No Weight loss, No Night Sweats ENT/Mouth : + nasal congestion/rhinorrhea, No Hearing loss, No Ear Pain, No Sinus Pain, No Hoarseness, No sore throat, No Swallowing Difficulty Eyes: No Eye Pain, No Swelling, No Redness, No Foreign Body, No Discharge, No Vision Changes Cardiovascular : No Chest Pain, No SOB, No Dyspnea on Exertion, No Orthopnea, No Edema, No Palpitations Respiratory : + Cough, + Sputum, No Wheezing, No Smoke Exposure, No Dyspnea Gastrointestinal : No Nausea, No Vomiting, No Diarrhea, No Constipation, No abdominal Pain, No Hematochezia, No Melena Genitourinary : no irregular bleeding, No Dysuria, No Urinary Frequency, No Hematuria, No Urinary Incontinence, No Urgency, No Flank Pain, No Urinary Flow Changes, No Hesitancy Musculoskeletal : No joint pain, + Myalgias, No Joint Swelling Skin : No Skin Lesions, No rash Neuro : No Weakness, No Numbness, No Paresthesias, No Loss of Consciousness, No Dizziness, No Headache Psych : No Anxiety/Panic, No Depression, No SI/HI/AH/VH, No Social Issues, Heme/Lymph: No Bruising, No Bleeding,No Lymphadenopathy Endocrine : No Polyuria, No Polydipsia, No Temperature Intolerance Yes all other systems are reviewed and are negative ON LICENSE OF [facility] Past Medical History Attestation statement: The following information was validated with the patient. Medical History Allergic rhinosinusitis Ankle pain, right Asthma Asthma Breast mass, right Breast pain, left Bronchitis Bronchopneumonia Chest pain in adult Chronic allergic rhinitis Chronic neck pain Cough COVID-19 Depression with anxiety Elevated blood pressure reading Fibromyalgia Frequent falls H. pylori duodenitis Hypovitaminosis D Leg edema Menieres disease Mild recurrent major depression Morbid obesity Ophthalmoplegic migraine AIRAM (obstructive sleep apnea) Panic attacks Pleuritic chest pain Polyarthralgia Rash RBBB (right bundle branch block) Right ankle pain Right elbow pain Right hand pain Seasonal allergic rhinitis Sinusitis Sinusitis Skin lesion Surgical History History of carpal tunnel surgery of right wrist History of section History of hysterectomy History of tubal ligation Hx of colonoscopy S/P cholecystectomy Family History Family History Father Oral cancer Thyroid cancer Colon cancer Mother NIDDY (non-insulin dependent diabetes mellitus in young) Gastric ulcer Paternal Grandfather Colon cancer Paternal Uncle Colon cancer Other Family history of colon cancer in father Social History Social History Housing: House Are you a primary care consultant to a significant other at home: No Alcohol intake: never Patient Tobacco Use Status: Never used Tobacco e-Cigarette/Vaping Use: Never Used Second Hand Smoke Exposure: No Advance Directives: No Advance Directives Information Provided: No service: No Current occupational status: disabled Sexual orientation: Straight/Heterosexual Gender identity: Female Physical Exam Vital Signs: Vital Signs: Last Vital Signs Temp 98.4 F 08/13/21 10:59 Pulse 72 08/13/21 12:56 Resp 22 H 08/13/21 12:56 BP 108/88 08/13/21 10:59 Pulse Ox 99 08/13/21 10:59 BMI result Body Mass Index 43.9 vital signs have been reviewed as normal and appeared to be correct. Blood pressure normal. Heart rate normal. Respiration rate normal. Temperature normal. Oxygen saturation normal. Appearance: Alert. Oriented X3. No acute distress. Head: Normal external exam. Normocephalic. Atraumatic. Eyes: PERRLA. EOMI. Conjunctiva and sclera normal. Eyelids normal. ENT: EAC normal. TM's Normal. Pharynx normal. Uvula midline. Moist mucous membranes. No lesions/ulcerations or masses noted on the tongue. Normal voice. No trismus noted. No drooling noted. No muffled voice noted. Neck: Normal inspection. Neck supple. FROM. No adenopathy. Thyroid Normal. No tracheal deviation noted. No crepitus is noted. No meningeal signs. No neck mass noted. No signs of trauma noted. CVS: Normal heart rate and rhythm. Heart sound normal. Pulses normal throughout. No murmurs/rales/gallops. Respiratory: No respiratory distress. Painless inspiration. Breath sounds normal. No wheezes/rales/rhonchi noted. Chest nontender. No crepitus is noted. No signs of trauma noted. No accessory muscle usage noted or decreased air movement noted. No signs of trauma. Abdomen: Soft and nontender. Bowel sounds normal in all 4 quadrants. No distention noted. No organomegaly noted. No visible injury noted. Back: No CVA tenderness. Full range of motion noted. Nontender. No signs of trauma. Patient neuro intact bilaterally and distally on all 4 extremities. Patient's reflexes intact bilaterally and distally on all 4 extremities. No rashes/lesion/induration/fluctuance or signs of infection noted. Skin: Skin warm and dry. Normal skin color. Normal skin turgor. No rashes/lesions/lacerations noted. Extremities: No lower extremity edema. No calf tenderness is noted. Extremities exhibit normal range of motion and nontender. Neuro: Oriented X 3. No motor deficit. No sensory deficit. Reflexes normal. Normal steady gait. No focal neuro deficits noted. CN's II-XII intact bilaterally? Vascular: + radial pulses/+ 2 distal pedal pulses/+2 dorsalis pedis b/l. Normal cap refill. No cyanosis noted to upper extremity nails and lower extremity toes nails. Course Course Course Narrative: 41-year-old female with a past medical history of asthma presenting to the ED with her daughter at bedside who just tested positive for influenza A with similar symptoms as her daughter although her symptoms started 1st. She reports subjective fevers/chills/fatigue/malaise/intermittent headaches/nasal congestion/rhinorrhea with a productive cough. Reports that she had a history of pneumonia therefore requesting a chest x-ray. Denies recent travel or any other sick contacts. She denies any other symptoms. Chest x-ray negative for any acute processes. Patient negative for COVID and flu. Will DC home with sym ptomatic treatment instructions return if any new or worsening symptoms to follow up with primary care provider. Patient understands agrees with this plan. MDM - URI/Sore Throat Medical Records Attestation: I reviewed the patient's medical records. Lab Data Attestation: I reviewed the patient's lab results. Labs: Lab Results 08/13/21 08/13/21 Range/Units 10:57 10:57 COVID-19 (CLAUDIA) Negative (Negative) COVID-19 Clin Com See Note Influenza Type A (DIANNE) Negative (Negative) Influenza Type B (DIANNE) Negative (Negative) Influenza A & B Note See Note Imaging Data Chest x-ray: Attestation: I personally reviewed and interpreted this imaging study as follows: Radiologist's impression: FINDINGS: No significant abnormality is noted involving the heart, lungs, mediastinum, bony thorax or soft tissues. XR/XR chest 2V IMPRESSION: No acute cardiopulmonary process. Discharge Plan Discharge Clinical Impression: Asthma exacerbation, Acute bronchitis with bronchospasm, Exposure to influenza Patient Disposition: Home, Self-Care Instructions: Asthma (ED), Acute Bronchitis (ED) Prescriptions: New (DME) AeroEclipse II Nebulizer Misc See Rx Instructions .ROUTE .MEDSUPPLY Qty: 1 0RF Rx Instructions: As directed albuterol sulfate 0.63 mg/3 mL solution for nebulization 0.63 mg inhalation QID PRN (Reason: shortness of breath or wheezing) Qty: 75 0RF albuterol sulfate 90 mcg/actuation HFA aerosol inhaler 1 inh inhalation QID PRN (Reason: shortness of breath or wheezing) Qty: 8.5 0RF azithromycin 250 mg tablet See Rx Instructions .ROUTE .COMPLEX Qty: 6 0RF Rx Instructions: take 500 mg today (day 1), then 250 mg for 4 days (days 2-5) codeine-guaifenesin [Guaifenesin AC] 10-100 mg/5 mL liquid 5 ml PO Q6H PRN (Reason: cold symptoms) Qty: 120 0RF No Action (DME) walker Misc See Rx Instructions .ROUTE .MEDSUPPLY Qty: 1 0RF Rx Instructions: As directed hydrocortisone [Proctosol HC] 2.5 % cream with perineal applicator See Rx Instructions FL BID 30 Days 3RF Rx Instructions: 1 dose bid FL 2 times a day; sumatriptan succinate 25 mg tablet 25 mg PO Q2-4H PRN (Reason: migraine headache) 30 Days Qty: 9 4RF Rx Instructions: do not exceed 8 doses per 24 hrs pantoprazole 40 mg tablet,delayed release (DR/EC) 40 mg PO DAILY 90 Days Qty: 90 3RF montelukast 10 mg tablet 10 mg PO DAILY Qty: 30 6RF hydrochlorothiazide 12.5 mg tablet 12.5 mg PO DAILY Qty: 90 2RF cholecalciferol (vitamin D3) 50 mcg (2,000 unit) capsule 50 mcg PO DAILY 90 Days Qty: 90 3RF guaifenesin [Mucinex] 600 mg tablet extended release 12hr 600 mg PO Q12H PRN (Reason: congestion) 7 Days Qty: 14 0RF Spiriva Respimat 2.5 mcg/actuation mist 2 inh PO DAILY Qty: 4 11RF budesonide-formoterol [Symbicort] 160-4.5 mcg/actuation HFA aerosol inhaler 2 puff inhalation BID 30 Days Qty: 10.2 11RF pregabalin 150 mg capsule 150 mg PO BID 30 Days Qty: 60 0RF ibuprofen 800 mg tablet 1 tab PO BID PRN (Reason: pain) 0RF ondansetron HCl 4 mg tablet PO 0RF meloxicam 15 mg tablet 15 mg PO DAILY 0RF meclizine 25 mg tablet 25 mg PO TID PRN (Reason: dizziness) 7 Days Qty: 21 0RF pseudoephedrine HCl [Nasal Decongestant (pseudoeph)] 120 mg tablet extended release 120 mg PO Q12H 14 Days Qty: 28 2RF fluticasone propionate 50 mcg/actuation spray,suspension 2 spray intranasal DAILY 30 Days Qty: 15.8 11RF guaifenesin 600 mg tablet extended release 12hr 600 mg PO DAILY 7 Days Qty: 7 0RF citalopram 40 mg tablet 40 mg PO DAILY 0RF budesonide 0.5 mg/2 mL suspension for nebulization inhalation BID 0RF prazosin 1 mg capsule 1 mg PO BEDTIME 0RF Linzess 72 mcg capsule 72 mcg PO QAM 30 Days Qty: 30 3RF zolpidem 10 mg tablet 10 mg PO BEDTIME PRN (Reason: Sleep) 0RF loratadine 10 mg tablet 10 mg PO DAILY 30 Days Qty: 30 11RF albuterol sulfate 2.5 mg /3 mL (0.083 %) solution for nebulization 2.5 mg inhalation Q4H PRN (Reason: shortness of breath or wheezing) 30 Days Qty: 360 11RF Daliresp 500 mcg tablet 500 mcg PO DAILY 30 Days Qty: 30 11RF albuterol sulfate [ProAir HFA] 90 mcg/actuation HFA aerosol inhaler 2 inh inhalation Q6H PRN (Reason: shortness of breath or wheezing) 30 Days Qty: 8.5 12RF clonazepam 1 mg tablet 1 mg PO BID PRN0RF benzonatate 200 mg capsule 200 mg PO BID PRN (Reason: cough) 30 Days Qty: 60 2RF prednisone 20 mg tablet 20 mg PO BID 10 Days Qty: 20 0RF Rx Instructions: 20 mg bid for 5 days then 20 mg daily for 5 days doxycycline hyclate 100 mg tablet 100 mg PO BID 10 Days Qty: 20 0RF pseudoephedrine HCl 120 mg tablet extended release 120 mg PO Q12H 30 Days Qty: 60 1RF azelastine 137 mcg (0.1 %) aerosol,spray 2 spray intranasal BID 30 Days Qty: 30 6RF Rx Instructions: administer into each nostril Referrals: Trisha Hui MD [Primary Care Provider] - 2 days Stand Alone Forms: Work/School Release Print Language: [place]
[2021-08-13] MEDS: guaiFEN/Codeine SF 200/20/10ML 10 ML LIQUID PO (13:47)
== END 2021-08-13 14:36 | disposition home or self-care (01) ==
PROVIDERS: Emergency Provider Emergency Medicine; PCP Internal Medicine
DX: J20.9 Acute bronchitis, unspecified (principal); J45.901 Unspecified asthma with (acute) exacerbation; R51.9 Headache, unspecified; R50.9 Fever, unspecified; R05.9 Cough, unspecified; Z79.899 Other long term (current) drug therapy; Z20.822 Contact with and (suspected) exposure to COVID-19
CPT/HCPCS: 71046; 87502; 87635; 99283; 99284

== ENCOUNTER → 2021-09-09 14:31 | Outpatient (BNVA) | payer OTHER, SELFPAY | PROVIDERS: PCP Internal Medicine; Visit Provider Hospitalist | DX: J45.51 Severe persistent asthma with (acute) exacerbation (principal); G47.33 Obstructive sleep apnea (adult) (pediatric); R09.1 Pleurisy; R05.9 Cough, unspecified | CPT/HCPCS: 99212 ==

== ENCOUNTER 2021-10-20 15:09 | Outpatient (REF) | payer OTHER, SELFPAY ==
--- NOTE | ~2021-10-20 | XR_ITS ---
EXAMINATION: LEFT FOOT AND ANKLE CLINICAL INFORMATION: Pain COMPARISON: February 26, 2020 TECHNIQUE: 2 views of the left ankle and 3 views of the left foot. FINDINGS: There is no evidence of acute fracture or dislocation of the left foot. No radiopaque foreign bodies identified and some mild soft tissue swelling seen about the ankle and foot. A cranial spurs at sites of insertion of plantar and Achilles tendons. Views of the left ankle do not demonstrate any evidence of acute fracture or dislocation. Ankle mortise appears unremarkable. XR/XR ankle LT min 3V IMPRESSION: No significant bony abnormality of the left foot or ankle. Calcaneal spurs.
--- NOTE | ~2021-10-20 | XR_ITS ---
EXAMINATION: LEFT FOOT AND ANKLE CLINICAL INFORMATION: Pain COMPARISON: February 26, 2020 TECHNIQUE: 2 views of the left ankle and 3 views of the left foot. FINDINGS: There is no evidence of acute fracture or dislocation of the left foot. No radiopaque foreign bodies identified and some mild soft tissue swelling seen about the ankle and foot. A cranial spurs at sites of insertion of plantar and Achilles tendons. Views of the left ankle do not demonstrate any evidence of acute fracture or dislocation. Ankle mortise appears unremarkable. XR/XR foot LT min 3V IMPRESSION: No significant bony abnormality of the left foot or ankle. Calcaneal spurs.
== END 2021-10-20 15:10 | disposition home or self-care (01) ==
LOC: HO.XRAY 15:09
PROVIDERS: PCP Internal Medicine; Visit Provider Nurse Practitioner Family
DX: M79.672 Pain in left foot (principal)
CPT/HCPCS: 73610; 73630

== ENCOUNTER 2021-11-14 14:37 | Outpatient (REF) | payer OTHER, SELFPAY ==
--- NOTE | ~2021-11-14 | XR_ITS ---
EXAMINATION: XR CHEST CLINICAL INFORMATION: Pleurisy COMPARISON: Previous chest x-ray most recent 08/13/2021 TECHNIQUE: 2 views of the chest were obtained. FINDINGS: The cardiac and mediastinal contours are stable. The lung volumes are low. The lungs are clear. There is no pleural effusion or pneumothorax. There are degenerative changes of the spine. XR/XR chest 2V IMPRESSION: No evidence for acute disease in the chest.
== END 2021-11-14 14:38 | disposition home or self-care (01) ==
LOC: HO.XRAY 14:37
PROVIDERS: PCP Internal Medicine; Visit Provider Hospitalist
DX: R09.1 Pleurisy (principal)
CPT/HCPCS: 71046

== ENCOUNTER 2021-11-25 00:09 | Emergency (ER) | payer OTHER, SELFPAY ==
--- NOTE | ~2021-11-25 | XR_ITS ---
EXAMINATION: XR CHEST CLINICAL INFORMATION: Chest pain COMPARISON: 11/14/2021 TECHNIQUE: 2 views of the chest were obtained. FINDINGS: Lung volumes are symmetric. No focal consolidation is seen. No evidence of pneumothorax, pleural effusion, or pulmonary edema. The cardiomediastinal contour is unremarkable. No acute osseous findings are seen. XR/XR chest 2V IMPRESSION: No acute cardiopulmonary findings.
[2021-11-25 00:12] VITALS: BP 157/99; PULSE 98; RESP 16; TEMP 37.4; O2SAT 99; BMI 87.5
--- NOTE | 2021-11-25 00:15 | ECG_ITS ---
Test Reason : hbp/chest discomfort Blood Pressure : / mmHG Vent. Rate : 080 BPM Atrial Rate : 080 BPM P-R Int : 130 ms QRS Dur : 138 ms QT Int : 426 ms P-R-T Axes : 021 032 -22 degrees QTc Int : 491 ms Normal sinus rhythm Right bundle branch block T wave abnormality, consider inferolateral ischemia Abnormal ECG When compared with ECG of 10-JAN-2020 09:56, Right bundle branch block is now Present Referred By: Generic ED Physician Electronically Signed By:JANA TUCKER
[2021-11-25 00:30] LABS: MANUAL DIFF FLAG NO
[2021-11-25 00:31] LABS: Basophils Percent Auto 0.2 % (0-2); Eosinophils Absolute Auto 0.1 X10*3/uL (0.0-0.4); Eosinophils Percent Auto 0.7 % (0-4); Hematocrit 39.6 % (37.0-47.0); Hemoglobin 14.1 g/dl (12.0-16.0); Imm Gran Abs Auto 0.03 X10*3/uL (0.00-0.03); Imm Gran Pct Auto 0.3 % (0.0-0.4); Lymphocytes Percent Auto 19.6 % (20-40); Mean Corpuscular HGB Conc 35.6 g/dl (31.0-35.0); Mean Corpuscular Hemoglobin 30.6 pg (27.0-33.0); Mean Corpuscular Volume 85.9 fL (80.0-98.0); Mean Platelet Volume 8.8 fL (9.4-12.3); Monocytes Absolute Auto 0.7 X10*3/uL (0.1-1.2); Monocytes Percent Auto 6.7 % (2-11); Neutrophils Absolute Auto 7.6 x10*3/uL (2.0-8.3); Neutrophils Percent Auto 72.5 % (45-73); Platelet Count 308 X10*3/uL (160-400); Red Blood Count 4.61 X10*6/uL (4.20-5.50); Red Cell Distribution Width 12.1 % (11.0-16.0); White Blood Count 10.4 X10*3/uL (4.8-10.8)
[2021-11-25 01:02] LABS: Troponin-I High Sensitivity < 3.5 ng/L (<3.5-17.0)
[2021-11-25 01:03] LABS: Anion Gap 17 (12-20); Blood Urea Nitrogen 14 mg/dL (9-16); Calcium 9.4 mg/dL (8.4-10.2); Carbon Dioxide 22 mmol/L (22-29); Chloride 103 mmol/L (96-108); Creatinine Clr Calc Pharmacy 196.2; Estimated Glomerular Filt Rate > 60; Glucose Random 105 mg/dL (60-115); Potassium 3.6 mmol/L (3.3-5.1); Sodium 138 mmol/L (135-145)
--- NOTE | 2021-11-25 01:25 | ED_ITS ---
HPI - Chest Pain General Chief Complaint: Chest Pain Stated Complaint: High BP Time Seen by Provider: 11/25/21 01:25 Source: patient Limitations: no limitations History of Present Illness HPI narrative: Is 41 years old came for elevated blood pressure. Patient check blood pressure at home it was 160/100, does not take any blood pressure medication patient recently had a tooth extraction pain started 22:00 patient does have history of sleep apnea not using her CPAP machine has fluctuating blood pressure mostly around 130 -140 complaining of pain in the left lower 3rd molar area where was a tooth removed Related Data Home Medications Medication Instructions Recorded Confirmed budesonide 0.5 mg/2 mL suspension mg inhalation BID 01/08/20 10/14/21 for nebulization citalopram 40 mg tablet 40 mg PO DAILY 01/08/20 10/14/21 meloxicam 15 mg tablet 15 mg PO DAILY 02/06/20 10/14/21 zolpidem 10 mg tablet 10 mg PO BEDTIME PRN Sleep 02/09/20 10/22/21 clonazepam 1 mg tablet 1 mg PO BID PRN 04/25/21 10/14/21 ibuprofen 800 mg tablet 800 mg PO TID PRN 11/24/21 Previous Rx's Medication Instructions Recorded walker #1 ea 08/02/20 Proctosol HC 2.5 % topical cream See Rx Instructions [place] BID 30 days 09/03/20 perineal applicator (hydrocortisone) meclizine 25 mg tablet 25 mg PO TID PRN dizziness 7 days 09/30/20 #21 tabs pantoprazole 40 mg tablet,delayed 40 mg PO DAILY 90 days #90 tabs 02/05/21 release loratadine 10 mg tablet 10 mg PO DAILY 30 days #30 tabs 03/04/21 fluticasone propionate 50 2 spray intranasal DAILY 30 days 04/23/21 mcg/actuation nasal #15.8 mL spray,suspension benzonatate 200 mg capsule 200 mg PO BID PRN cough 30 days 04/25/21 #60 caps ProAir HFA 90 mcg/actuation 2 inh inhalation Q6H PRN shortness 06/05/21 aerosol inhaler (albuterol sulfate) of breath or wheezing 30 days #8.5 grams cholecalciferol (vitamin D3) 50 50 mcg PO DAILY 90 days #90 caps 06/11/21 mcg (2,000 unit) capsule Symbicort 160 mcg-4.5 2 puff inhalation BID 30 days 06/19/21 mcg/actuation HFA aerosol inhaler #10.2 grams (budesonide-formoterol) tiotropium bromide 2.5 2 inh PO DAILY #4 mL 06/19/21 mcg/actuation mist for inhalation (Spiriva Respimat) azelastine 137 mcg (0.1 %) nasal 2 spray intranasal BID 30 days #30 07/03/21 spray aerosol mL pregabalin 150 mg capsule 150 mg PO BID 30 days #60 caps 08/04/21 nebulizers (AeroEclipse II #1 ea 08/13/21 Nebulizer) albuterol sulfate 2.5 mg/3 mL 2.5 mg (3 mL) inhalation Q4H PRN 08/21/21 (0.083 %) solution for nebulization shortness of breath or wheezing 30 days #360 mL montelukast 10 mg tablet 10 mg PO DAILY #30 tabs 08/28/21 cyclobenzaprine 5 mg tablet 5 mg PO TID PRN muscle spasm #20 11/24/21 tabs hydrochlorothiazide 25 mg tablet 25 mg PO QAM #30 tabs 11/25/21 tramadol 50 mg tablet 50 mg PO Q6H PRN pain #20 tabs 11/25/21 Allergies Allergy/AdvReac Type Severity Reaction Status Date / Time Iodinated Contrast Media Allergy Severe ANAPHYLAXIS Verified 11/25/21 00:11 [IV CONTRAST] cyclobenzaprine Allergy Intermediate NUMBNESS Verified 11/25/21 00:11 [From FLEXERIL] gadobutrol [From GADAVIST] Allergy Intermediate DIFFICULTY Verified 11/25/21 00:11 BREATHING perfume [PERFUME] Allergy Intermediate TRIGGERS Verified 11/25/21 00:11 ASTHMA prednisone Allergy Intermediate swelling Verified 11/25/21 00:11 Review of Systems Review of Systems: Yes all other systems are reviewed and are negative PMFSH Past Medical History Medical History Allergic rhinosinusitis Ankle pain, right Asthma Asthma Breast mass, right Breast pain, left Bronchitis Bronchopneumonia Chest pain in adult Chronic allergic rhinitis Chronic neck pain Cough COVID-19 Depression with anxiety Elevated blood pressure reading Fibromyalgia Frequent falls H. pylori duodenitis Hypovitaminosis D Leg edema Menieres disease Mild recurrent major depression Morbid obesity Ophthalmoplegic migraine AIRAM (obstructive sleep apnea) Panic attacks Pleurisy Pleuritic chest pain Polyarthralgia Rash RBBB (right bundle branch block) Right ankle pain Right elbow pain Right hand pain Seasonal allergic rhinitis Sinusitis Sinusitis Skin lesion Surgical History History of carpal tunnel surgery of right wrist History of section History of hysterectomy History of tubal ligation Hx of colonoscopy S/P cholecystectomy Family History Family History Father Oral cancer Thyroid cancer Colon cancer Mother NIDDY (non-insulin dependent diabetes mellitus in young) Gastric ulcer Paternal Grandfather Colon cancer Paternal Uncle Colon cancer Other Family history of colon cancer in father Social History Social History Housing: House Are you a primary palliative care nurse practitioner to a significant other at home: No Alcohol intake: never Patient Tobacco Use Status: Never used Tobacco e-Cigarette/Vaping Use: Never Used Second Hand Smoke Exposure: No Advance Directives: No Advance Directives Information Provided: No service: No Current occupational status: disabled Sexual orientation: Straight/Heterosexual Gender identity: Female Cognitive needs: Yes Hearing needs: No Vision needs: No Physical Exam Vital Signs: Vital Signs: Last Vital Signs Temp 99.3 F 11/25/21 00:12 Pulse 98 11/25/21 00:12 Resp 16 11/25/21 00:12 BP 157/99 H 11/25/21 00:12 Pulse Ox 99 11/25/21 00:12 O2 Del Method 11/25/21 00:12 BMI result Body Mass Index 87.5 Appearance: Alert. Oriented X3. No acute distress. ENT: Pharynx normal. Oral Mucosa moist healing left lower 3rd molar post extraction Neck: Normal inspection. Neck supple. CVS: Normal heart rate and rhythm. Pulses normal. Respiratory: No respiratory distress. Equal air entry bilateral, no wheezing/rales/rhonchi Abdomen: Soft and nontender. Bowel sounds are present, no mass palpable, no CVA tenderness Skin: Skin warm and dry. Normal skin color. Normal skin turgor. Extremities: No lower extremity edema. No calf tenderness Neuro: Oriented X 3. No motor deficit. MDM - Chest Pain MDM Narrative Medical decision making narrative: Patient has borderline hypertension likely from some sleep apnea and pain from the molar extraction, patient advised to use CPAP machine and will start patient on hydrochlorothiazide advised to follow with PCP Lab Data Attestation: I reviewed the patient's lab results. Result diagrams: 11/25/21 00:26 11/25/21 00:26 Labs: Lab Results 11/25/21 11/25/21 11/25/21 Range/Units 00: 00:26 00:26 WBC 10.4 (4.8-10.8) X10*3/uL RBC 4.61 (4.20-5.50) X10*6/uL Hgb 14.1 (12.0-16.0) g/dl Hct 39.6 (37.0-47.0) % MCV 85.9 (80.0-98.0) fL MCH 30.6 (27.0-33.0) pg MCHC 35.6 H (31.0-35.0) g/dl RDW 12.1 (11.0-16.0) % Plt Count 308 (160-400) X10*3/uL MPV 8.8 L (9.4-12.3) fL Immature Gran % (Auto) 0.3 (0.0-0.4) % Neut % (Auto) 72.5 (45-73) % Lymph % (Auto) 19.6 L (20-40) % Mora % (Auto) 6.7 (2-11) % Eos % (Auto) 0.7 (0-4) % Baso % (Auto) 0.2 (0-2) % Lymph # (Auto) 2.0 (1.2-4.9) X10*3/uL Mora # (Auto) 0.7 (0.1-1.2) X10*3/uL Eos # (Auto) 0.1 (0.0-0.4) X10*3/uL Baso # (Auto) 0.0 (0.0-0.2) X10*3/uL Abs Immat Gran (auto) 0.03 (0.00-0.03) X10*3/uL Absolute Neuts (auto) 7.6 (2.0-8.3) x10*3/uL Absolute Nucleated RBC 0.000 (0.0-0.012) X10*3/uL Nucleated RBC % (auto) 0.0 (0.0-0.2) /100WBC Sodium 138 (135-145) mmol/L Potassium 3.6 (3.3-5.1) mmol/L Chloride 103 (96-108) mmol/L Carbon Dioxide 22 (22-29) mmol/L Anion Gap 17 (12-20) BUN 14 (9-16) mg/dL Creatinine 0.79 (0.5-1.4) mg/dL Estim Creat Clear Calc 196.2 Estimated GFR > 60 Random Glucose 105 (60-115) mg/dL Calcium 9.4 (8.4-10.2) mg/dL Troponin I High Sens < 3.5 (<3.5-17.0) ng/L ECG Data ECG #1: Attestation: I personally reviewed and interpreted this ECG as follows: Ischemic changes: acute NSTEMI Interpretation: Normal sinus rhythm heart rate 80 beats per minute right bundle-branch block nonspecific T-wave changes similar to that in the past no acute ischemia Discharge Plan Discharge Clinical Impression: Hypertension, Sleep apnea syndrome Patient Disposition: Home, Self-Care Instructions: Sleep Apnea (DC), Hypertension (ED) Additional Instructions: Use sleep apnea machine every night as advised Take hydrochlorothiazide 1 tablet daily in the morning for better blood pressure control Pain medication as prescribed for your dental pain Follow with PCP if not better A blood pressure should be less than 135/80 Prescriptions: New tramadol 50 mg tablet 50 mg PO Q6H PRN (Reason: pain) Qty: 20 0RF hydrochlorothiazide 25 mg tablet 25 mg PO QAM Qty: 30 0RF No Action (DME) ryann Misc See Rx Instructions .ROUTE .MEDSUPPLY Qty: 1 0RF Rx Instructions: As directed hydrocortisone [Proctosol HC] 2.5 % cream with perineal applicator See Rx Instructions [place] BID 30 Days 3RF Rx Instructions: 1 dose bid [place] 2 times a day; pantoprazole 40 mg tablet,delayed release (DR/EC) 40 mg PO DAILY 90 Days Qty: 90 3RF cholecalciferol (vitamin D3) 50 mcg (2,000 unit) capsule 50 mcg PO DAILY 90 Days Qty: 90 3RF Spiriva Respimat 2.5 mcg/actuation mist 2 inh PO DAILY Qty: 4 11RF budesonide-formoterol [Symbicort] 160-4.5 mcg/actuation HFA aerosol inhaler 2 puff inhalation BID 30 Days Qty: 10.2 11RF pregabalin 150 mg capsule 150 mg PO BID 30 Days Qty: 60 0RF albuterol sulfate 2.5 mg /3 mL (0.083 %) solution for nebulization 2.5 mg inhalation Q4H PRN (Reason: shortness of breath or wheezing) 30 Days Qty: 360 11RF montelukast 10 mg tablet 10 mg PO DAILY Qty: 30 6RF (DME) AeroEclipse II Nebulizer Misc See Rx Instructions .ROUTE .MEDSUPPLY Qty: 1 0RF Rx Instructions: As directed meloxicam 15 mg tablet 15 mg PO DAILY meclizine 25 mg tablet 25 mg PO TID PRN (Reason: dizziness) 7 Days Qty: 21 0RF ibuprofen 800 mg tablet 800 mg PO TID PRN Rx Instructions: Tooth removed Wednesday11/22/21. cyclobenzaprine 5 mg tablet 5 mg PO TID PRN (Reason: muscle spasm) Qty: 20 0RF fluticasone propionate 50 mcg/actuation spray,suspension 2 spray intranasal DAILY 30 Days Qty: 15.8 11RF citalopram 40 mg tablet 40 mg PO DAILY budesonide 0.5 mg/2 mL suspension for nebulization inhalation BID zolpidem 10 mg tablet 10 mg PO BEDTIME PRN (Reason: Sleep) loratadine 10 mg tablet 10 mg PO DAILY 30 Days Qty: 30 11RF albuterol sulfate [ProAir HFA] 90 mcg/actuation HFA aerosol inhaler 2 inh inhalation Q6H PRN (Reason: shortness of breath or wheezing) 30 Days Qty: 8.5 12RF clonazepam 1 mg tablet 1 mg PO BID PRN benzonatate 200 mg capsule 200 mg PO BID PRN (Reason: cough) 30 Days Qty: 60 2RF azelastine 137 mcg (0.1 %) aerosol,spray 2 spray intranasal BID 30 Days Qty: 30 6RF Rx Instructions: administer into each nostril
== END 2021-11-25 01:50 | disposition home or self-care (01) ==
PROVIDERS: Emergency Provider Internal Medicine; PCP Internal Medicine
DX: G47.30 Sleep apnea, unspecified (principal); R07.89 Other chest pain; I10 Essential (primary) hypertension; Z79.899 Other long term (current) drug therapy
CPT/HCPCS: 36415; 71046; 80048; 84484; 85025; 93005; 99283

== ENCOUNTER 2021-11-27 09:44 | Outpatient (REF) | payer OTHER, SELFPAY ==
[2021-11-27 10:01] LABS: MANUAL DIFF FLAG NO
[2021-11-27 10:16] LABS: Basophils Percent Auto 0.3 % (0-2); Eosinophils Absolute Auto 0.1 X10*3/uL (0.0-0.4); Eosinophils Percent Auto 1.1 % (0-4); Hematocrit 39.3 % (37.0-47.0); Hemoglobin 13.9 g/dl (12.0-16.0); Imm Gran Abs Auto 0.04 X10*3/uL (0.00-0.03); Imm Gran Pct Auto 0.6 % (0.0-0.4); Lymphocytes Absolute Auto 1.3 X10*3/uL (1.2-4.9); Lymphocytes Percent Auto 19.6 % (20-40); Mean Corpuscular HGB Conc 35.4 g/dl (31.0-35.0); Mean Corpuscular Hemoglobin 30.7 pg (27.0-33.0); Mean Corpuscular Volume 86.8 fL (80.0-98.0); Monocytes Absolute Auto 0.4 X10*3/uL (0.1-1.2); Monocytes Percent Auto 5.5 % (2-11); Neutrophils Absolute Auto 4.7 x10*3/uL (2.0-8.3); Neutrophils Percent Auto 72.9 % (45-73); Platelet Count 367 X10*3/uL (160-400); Red Blood Count 4.53 X10*6/uL (4.20-5.50); White Blood Count 6.4 X10*3/uL (4.8-10.8)
[2021-11-27 10:30] LABS: Estimated Average Glucose 85 mg/dL; Hemoglobin A1c % 4.6 %
[2021-11-27 10:39] LABS: Alanine Aminotransferase 28 U/L (0-31); Albumin Level 4.3 g/dL (3.5-5.0); Alkaline Phosphatase 74 U/L (39-117); Anion Gap 13 (12-20); Aspartate Amino Transferase 21 U/L (5-31); Bilirubin Total 1.1 mg/dL (0.0-1.0); Blood Urea Nitrogen 10 mg/dL (9-16); Calcium 9.4 mg/dL (8.4-10.2); Carbon Dioxide 26 mmol/L (22-29); Chloride 103 mmol/L (96-108); Estimated Glomerular Filt Rate > 60; Glucose Random 101 mg/dL (60-115); Potassium 3.6 mmol/L (3.3-5.1); Sodium 138 mmol/L (135-145); Total Protein 7.9 g/dL (6.5-8.0)
[2021-11-27 11:01] LABS: Free T4 (Free Thyroxine) 1.26 ng/dL (0.71-1.85); Thyroid Stimulating Hormone 1.08 uIU/mL (0.32-4.0)
== END 2021-11-27 09:45 | disposition home or self-care (01) ==
LOC: HO.LAB 09:44
PROVIDERS: PCP Internal Medicine; Visit Provider Internal Medicine
DX: E66.9 Obesity, unspecified (principal)
CPT/HCPCS: 36415; 80053; 83036; 84439; 84443; 85025

== ENCOUNTER → 2021-12-16 12:10 | Outpatient (BNVA) | payer OTHER, SELFPAY | PROVIDERS: PCP Nurse Practitioner Family; Visit Provider Nurse Practitioner Family | DX: M79.7 Fibromyalgia (principal); M54.50 Low back pain, unspecified; M25.561 Pain in right knee; M25.562 Pain in left knee; Z79.891 Long term (current) use of opiate analgesic | CPT/HCPCS: 99212 ==

== ENCOUNTER → 2022-01-30 14:21 | Outpatient (BNVA) | payer OTHER, SELFPAY | PROVIDERS: PCP Internal Medicine; Visit Provider Hospitalist | DX: J45.51 Severe persistent asthma with (acute) exacerbation (principal); G47.33 Obstructive sleep apnea (adult) (pediatric); R05.9 Cough, unspecified | CPT/HCPCS: 99212 ==

== ENCOUNTER → 2022-05-21 14:30 | Outpatient (BNVA) | payer OTHER, SELFPAY | PROVIDERS: PCP Internal Medicine; Visit Provider Hospitalist | DX: J45.51 Severe persistent asthma with (acute) exacerbation (principal); R05.9 Cough, unspecified; G47.33 Obstructive sleep apnea (adult) (pediatric) | CPT/HCPCS: 99212 ==

== ENCOUNTER 2022-05-27 14:48 | Outpatient (RCR) | payer OTHER, SELFPAY ==
--- NOTE | 2022-05-27 16:33 | MHC.OT.EP ---
[address] [phone] Occupational Therapy Plan of Care Date of Evaluation: 05/27/22 Diagnosis: Right hand pain . 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 EMG results for testing yesterday are not available She demonstrates submaximal AROM and strength from her shoulders to her hands with a complaint of severe pain , 10/10 Light touch testing shows normal left hand and impaired light touch right hand digits 1-4, loss of protective sensation digit 5 She has a Quick DASH score of 88 pt. She reports generally stays bed and watches TV much of the time due to her Fibromyalgia, asthma and depression and is agreeable to OT only 1x a week due to pain and depression Pt may benefit from OT for improving UE strength and activity tolerance. Pt is only agreeable to OT 1x a week Frequency and Duration: The patient will be seen 1x wk x 3 wks Short Term Goals: Demo indep with UE ther ex Demo awareness of energy conservation technique and AD for increased participation with daily activities Dec right hand pain to < 5 at rest Tolerate > 15 min of light-mod UE activity Fdc Goals: Same as above Treatment Plan: Therapeutic Exercise Therapeutic Activity Home Exercise Program Patient Education ADL Training Electronically Signed By: Ivania Rush OT CHT CLT Please Sign and return to therapist. Thank you once again for your referral.
== END 2022-06-29 09:47 | disposition home or self-care (01) ==
LOC: HO.OT 14:48
PROVIDERS: PCP Internal Medicine; Visit Provider Internal Medicine
DX: M79.641 Pain in right hand (principal)
CPT/HCPCS: 97110; 97166

== ENCOUNTER → 2022-08-03 15:03 | Outpatient (BNVA) | payer OTHER, SELFPAY | PROVIDERS: PCP Internal Medicine; Visit Provider Physician Assistant | DX: M79.643 Pain in unspecified hand (principal) | CPT/HCPCS: 99212 ==

== ENCOUNTER 2022-08-11 14:18 | Outpatient (REF) | payer OTHER, SELFPAY ==
--- NOTE | ~2022-08-11 | XR_ITS ---
EXAMINATION: XR KNEE, LEFT CLINICAL INFORMATION: Pain COMPARISON: None available. TECHNIQUE: 3 views of the left knee. FINDINGS: There is loss of tricompartment joint space with periarticular spurring in the patellofemoral compartment. Mild suprapatellar joint effusion seen. There are no loose bodies or bony erosive changes. No acute fracture or dislocation. XR/XR knee LT 3V IMPRESSION: Degenerative arthritic changes left knee with mild suprapatellar joint effusion. No visible acute fracture or dislocation seen.
== END 2022-08-11 14:19 | disposition home or self-care (01) ==
LOC: HO.XRAY 14:18
PROVIDERS: Absent Provider Nurse Practitioner Family; PCP Internal Medicine; Visit Provider Hospitalist
DX: M25.562 Pain in left knee (principal); J45.51 Severe persistent asthma with (acute) exacerbation; R05.9 Cough, unspecified; J30.9 Allergic rhinitis, unspecified; R05.3 Chronic cough; G47.33 Obstructive sleep apnea (adult) (pediatric)
CPT/HCPCS: 73562; 99212

== ENCOUNTER 2022-09-15 14:28 | Emergency (ER) | payer OTHER, SELFPAY ==
--- NOTE | ~2022-09-15 | CT_ITS ---
EXAMINATION: CT SOFT TISSUE NECK WITHOUT CONTRAST CLINICAL INFORMATION: Left lower dental and ear pain COMPARISON: None available. TECHNIQUE: Helical imaging was performed in the axial plane with generation of coronal and sagittal reformatted images. This CT examination was performed using dose optimization techniques as appropriate, variously including the following: *Automated exposure control *Adjustment of mA and/or kV according to patient size (this includes techniques or standardized protocols for targeted exams where dose is matched to indication/reason for exam; i.e. extremities or head) *Use of iterative reconstruction technique DLP: 848 mGy-cm FINDINGS: There is asymmetric low attenuation seen in the left floor of the mouth measuring 1.5 cm for example axial image 63 series 2 and sagittal reconstructed image 41 and coronal reconstructed image 23. No dental abscess is seen. There are some dental caries. There is inflammatory change with membranous soft tissue thickening in the sphenoid sinus. Paranasal sinuses, mastoid air cells and middle ears are otherwise clear. Temporomandibular joints are normal. The salivary glands are normal. The thyroid gland is normal. There is prominent soft tissue seen in the pharyngeal mucosal space. This is symmetric and probably represents prominence of the palatine tonsils. No discrete mass is appreciated. The larynx is normal. There is diffuse shotty cervical lymphadenopathy. This is probably reactive. No enlarged lymph nodes are seen. There are degenerative changes of the cervical spine. Visualized lung apices are clear. No superior mediastinal adenopathy is seen. CT/CT soft tissue neck wo IV con IMPRESSION: 1.5 cm low-attenuation area in the left floor of the mouth. 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 No dental abscess. Normal mastoid air cells and middle ears. Mild inflammatory changes in the sphenoid sinus. Prominent palatine tonsils and diffuse shotty cervical lymphadenopathy, probably reactive.
--- NOTE | 2022-09-15 16:04 | ED_ITS ---
HPI - URI/Sore Throat General Chief Complaint: Dental/Oral Stated Complaint: Swollen Glands Dental Pain Time Seen by Provider: 09/15/22 18:00 Source: patient Mode of arrival: ambulatory Limitations: no limitations History of Present Illness HPI Narrative: 42-year-old female history of sinusitis, GERD, obesity, gastritis, Meniere's disease, fibromyalgia, asthma presenting to the emergency department fatigue, malaise, congestion, sore throat, myalgias, cough, sinus pressure for the past month, she tells me the reason she decided to come in today is because she noted her sore throat was getting worsen she was having more difficulty with swallowing. Patient tolerating liquids and solids in eating per usual. Patient is currently on antibiotics due to maxillofacial issues, she is pending surgery due to poor dentition. Related Data Home Medications Medication Instructions Recorded Confirmed citalopram 40 mg tablet 40 mg PO DAILY 01/08/20 08/07/22 meloxicam 15 mg tablet 15 mg PO DAILY 02/06/20 08/07/22 zolpidem 10 mg tablet 10 mg PO BEDTIME PRN Sleep 02/09/20 08/07/22 clonazepam 1 mg tablet 1 mg PO BID PRN 04/25/21 08/07/22 ibuprofen 800 mg tablet 800 mg PO TID PRN 11/24/21 08/07/22 Previous Rx's Medication Instructions Recorded ryann #1 ea 08/02/20 Proctosol HC 2.5 % topical cream See Rx Instructions SC BID 30 days 09/03/20 perineal applicator (hydrocortisone) meclizine 25 mg tablet 25 mg PO TID PRN dizziness 7 days 09/30/20 #21 tabs pantoprazole 40 mg tablet,delayed 40 mg PO DAILY 90 days #90 tabs 02/05/21 release fluticasone propionate 50 2 spray intranasal DAILY 30 days 04/23/21 mcg/actuation nasal #15.8 mL spray,suspension cholecalciferol (vitamin D3) 50 50 mcg PO DAILY 90 days #90 caps 06/11/21 mcg (2,000 unit) capsule azelastine 137 mcg (0.1 %) nasal 2 spray intranasal BID 30 days #30 07/03/21 spray aerosol mL nebulizers (AeroEclipse II #1 ea 08/13/21 Nebulizer) hydrochlorothiazide 25 mg tablet 25 mg PO QAM #90 tabs 01/06/22 albuterol sulfate 2.5 mg/3 mL 2.5 mg (3 mL) inhalation Q4H PRN 01/14/22 (0.083 %) solution for nebulization shortness of breath or wheezing 30 days #360 mL albuterol sulfate 90 mcg/actuation 2 inh inhalation Q6H PRN shortness 01/30/22 aerosol inhaler of breath or wheezing 30 days #1 ea Shower Chair #1 ea 05/20/22 tramadol 50 mg tablet 50 mg PO Q6H PRN pain #20 tabs 05/27/22 montelukast 10 mg tablet 10 mg PO DAILY #30 tabs 06/09/22 Symbicort 160 mcg-4.5 2 puff inhalation BID 30 days 07/06/22 mcg/actuation HFA aerosol inhaler #10.2 grams (budesonide-formoterol) benzonatate 200 mg capsule 200 mg PO BID PRN cough 30 days 08/11/22 #60 caps codeine 10 mg-guaifenesin 100 mg/5 10 ml PO Q6H PRN cough 10 days 08/11/22 mL oral liquid #300 mL roflumilast 500 mcg tablet 500 mcg PO DAILY 30 days #30 tabs 08/11/22 (Daliresp) pregabalin 150 mg capsule 150 mg PO BID 30 days #60 caps 08/16/22 Spiriva Respimat 2.5 mcg/actuation 2 puff PO DAILY #4 grams 09/03/22 solution for inhalation (tiotropium bromide) albuterol sulfate 90 mcg/actuation 2 inh inhalation Q4-6H PRN 09/15/22 breath activated powder inhaler shortness of breath or wheezing #1 ea benzonatate 100 mg capsule 100 mg PO BID PRN cough #20 caps 09/15/22 Allergies Allergy/AdvReac Type Severity Reaction Status Date / Time Iodinated Contrast Media Allergy Severe ANAPHYLAXIS Verified 09/15/22 16:05 [IV CONTRAST] cyclobenzaprine Allergy Intermediate NUMBNESS Verified 09/15/22 16:05 [From FLEXERIL] gadobutrol [From GADAVIST] Allergy Intermediate DIFFICULTY Verified 09/15/22 16:05 BREATHING perfume [PERFUME] Allergy Intermediate TRIGGERS Verified 09/15/22 16:05 ASTHMA prednisone Allergy Intermediate swelling Verified 09/15/22 16:05 Review of Systems Review of Systems: Constitutional : No Weight loss, No Fever, No Chills, + Fatigue, + Malaise ENT/Mouth : + sore throat, No Rhinorrhea Eyes: No Eye Pain, No Swelling, No Redness Cardiovascular : No Chest Pain, No SOB, No Dyspnea on Exertion, No Orthopnea, No Edema, No Palpitations Respiratory : + Cough, + Sputum, + Wheezing Gastrointestinal : No Nausea, No Vomiting, No Diarrhea, No Constipation, No abdominal Pain, No Hematochezia, No Melena Genitourinary : No Dysuria, No Urinary Frequency, No Hematuria, Musculoskeletal : No joint pain, No Myalgias, No Joint Swelling Skin : No Skin Lesions, No rash Neuro : No Weakness, No Numbness, No Dizziness, No Headache Psych : No Anxiety/Panic, No Depression All other systems reviewed and are negative Yes all other systems are reviewed and are negative PMFSH Past Medical History Attestation statement: The following information was validated with the patient. Source: old records reviewed and nursing notes reviewed Medical History Ankle pain, right Asthma Breast mass, right Breast pain, left Chronic cough Chronic neck pain COVID-19 Fibromyalgia Frequent falls Generalized anxiety disorder H. pylori duodenitis Hypovitaminosis D Labial lesion Left elbow pain Leg edema Low back pain Menieres disease Mild recurrent major depression Morbid obesity Ophthalmoplegic migraine AIRAM (obstructive sleep apnea) Panic attacks Pleuritic chest pain Polyarthralgia RBBB (right bundle branch block) Rectal bleeding Right elbow pain Sinusitis Skin lesion Submandibular lymphadenopathy Surgical History History of carpal tunnel surgery of right wrist History of section History of cholecystectomy History of colonoscopy History of endoscopy History of hysterectomy History of tubal ligation Family History Family History Father Oral cancer Thyroid cancer Colon cancer Mother NIDDY (non-insulin dependent diabetes mellitus in young) Gastric ulcer Paternal Grandfather Colon cancer Paternal Uncle Colon cancer Other Family history of colon cancer in father Social History Social History Housing: House Are you a primary child care specialist to a significant other at home: No Alcohol intake: never Patient Tobacco Use Status: Never used Tobacco Smoked in Last 30 Days: No e-Cigarette/Vaping Use: Never Used Second Hand Smoke Exposure: No Advance Directives: No Advance Directives Information Provided: No service: No Current occupational status: disabled Sexual orientation: Straight/Heterosexual Gender identity: Female Cognitive needs: Yes Hearing needs: No Vision needs: No Physical Exam Vital Signs: Vital Signs: Last Vital Signs Temp 98.5 F 09/15/22 19:40 Pulse 69 09/15/22 19:40 Resp 15 09/15/22 19:40 BP 111/59 L 09/15/22 19:40 Pulse Ox 100 09/15/22 19:40 O2 Del Method Room Air 09/15/22 19:40 BMI result Body Mass Index 41.9 vss Appearance: Alert.? Oriented X3.? No acute distress.? Head: Normocephalic, atraumatic, no step-offs or deformities Eyes: Pupils equal, round and reactive to light.? ENT: Pharynx with posterior pharynx with erythema, bilateral tonsils enlarged, left greater than right, no edema or exudate.uvula midline, no abscess, or exudate. Patient is speaking in full sentences controlling secretions well. Poor dentition throughout, no appreciated abscess. Bilateral tympanic membrane and ear canal within normal limits, no edema or erythema. No mastoid tenderness. Neck: Normal inspection.? Neck supple.? CVS: Normal heart rate and rhythm.? Pulses normal.? Respiratory: No respiratory distress.? Breath sounds normal.? Abdomen: Soft and nontender.? Skin: Skin warm and dry.? Normal skin color.? Normal skin turgor.? Extremities: No lower extremity edema.? No calf ttp. 5/5 strength to bilateral upper and lower extremities Back: No midline tenderness, no C-spine tenderness, full range of motion, no CVA tenderness bilaterally Neuro: Oriented X 3.? No motor deficit.? No sensory deficit. CN 2-12 intact Course Course Course Narrative: RME: 42 old female past medical history of asthma, AIRAM, sinusitis, GERD, gastritis, fibromyalgia, Meniere's disease, presenting to the ED complaining of dental pain, gum discomfort, sinus pressure, URI sx & sore throat x 1 mos w/difficulty swallowing. Admits to known molar issues, saw OMFS and supposed to have surgery but waiting on medical clearance. COVID/FLU, Strep ordered Full HPI, ROS and PE to be performed by primary ED provider. Reevaluation(s) Reevaluation #1: Patient is noted to be COVID positive. This is likely contributing to patient's pain, patient tells me that she is having severe pain to her tooth which she is being followed by a maxillofacial surgery for, on my exam patient does not have a palpable abscess, if anything left tonsil slightly more swollen than right however not by much. I do not suspect abscess patient states that she thinks are something wrong basic labs and CT soft tissue neck without IV contrast ordered to check for abscess, preferably this would be done with IV c ontrast however patient with anaphylactic reaction to contrast. Sign out given to Lane THOMAS pending scan and reeval. Time: 18:21 Reevaluation #2: CT shows no evidence of dental abscess. She is stable for discharge to follow- up to PCP. Time: 22:27 Medical Decision Making Medical Decision Making [facility] Narrative: 1817 42-year-old female presents with dental pain, sinus pressure, URI symptoms and sore throat for the past month with difficulty swallowing. Patient followed by oral maxillofacial surgery and is scheduled for surgery however pending med clearance. Physical exam vital signs stable, regular rate and rhythm, lungs clear, abdomen soft nontender nondistended. Pharynx with posterior pharynx with erythema, bilateral tonsils enlarged, left greater than right, no edema or exudate.uvula midline, no abscess, or exudate. Patient is speaking in full sentences controlling secretions well. Poor dentition throughout, no appreciated abscess. Bilateral tympanic membrane and ear canal within normal limits, no edema or erythema. No mastoid tenderness. Concerns for possible strep throat, viral illness. Unlikely dental abscess, no signs of threatened airway, epiglottitis, peritonsillar retropharyngeal abscess, pneumonia, PE, ACS. Perc negative plan viral testing. I do not suspect pneumonia no need for chest x-ray. Patient already on antibiotics regardless. Differential Diagnosis Differential Diagnoses: The differential diagnosis associated with the presentation includes Concerns for possible strep throat, viral illness. Unlikely dental abscess, no signs of threatened airway, epiglottitis, peritonsillar retropharyngeal abscess, pneumonia, PE, ACS. Perc negative Admission/Observation Consideration of admission/observation: Escalation of care including admission/observation considered Unlikely Lab Data MDM Lab Attestation statement: I reviewed the patient's lab results. 09/15/22 18:37 09/15/22 18:37 Labs: Lab Results 09/15/22 09/15/22 09/15/22 Range/Units 16:22 16:22 16:22 WBC (4.8-10.8) X10*3/uL RBC (4.20-5.50) X10*6/uL Hgb (12.0-16.0) g/dl Hct (37.0-47.0) % MCV (80.0-98.0) fL MCH (27.0-33.0) pg MCHC (31.0-35.0) g/dl RDW (11.0-16.0) % Plt Count (160-400) X10*3/uL MPV (9.4-12.3) fL Immature Gran % (Auto) (0.0-0.4) % Neut % (Auto) (45-73) % Lymph % (Auto) (20-40) % Potter % (Auto) (2-11) % Eos % (Auto) (0-4) % Baso % (Auto) (0-2) % Lymph # (Auto) (1.2-4.9) X10*3/uL Potter # (Auto) (0.1-1.2) X10*3/uL Eos # (Auto) (0.0-0.4) X10*3/uL Baso # (Auto) (0.0-0.2) X10*3/uL Abs Immat Gran (auto) (0.00-0.03) X10*3/uL Absolute Neuts (auto) (2.0-8.3) x10*3/uL Absolute Nucleated RBC (0.0-0.012) X10*3/uL Nucleated RBC % (auto) (0.0-0.2) /100WBC Sodium (135-145) mmol/L Potassium (3.3-5.1) mmol/L Chloride (96-108) mmol/L Carbon Dioxide (22-29) mmol/L Anion Gap (12-20) BUN (9-16) mg/dL Creatinine (0.5-1.4) mg/dL Estim Creat Clear Calc Estimated GFR Random Glucose (60-115) mg/dL Calcium (8.4-10.2) mg/dL Total Bilirubin (0.0-1.0) mg/dL AST (5-31) U/L ALT (0-31) U/L Alkaline Phosphatase (39-117) U/L Total Protein (6.5-8.0) g/dL Albumin (3.5-5.0) g/dL COVID-19 (CLAUDIA) Positive A (Negative) COVID-19 Clin Com See Note Influenza Type A (DIANNE) Negative (Negative) Influenza Type B (DIANNE) Negative (Negative) Influenza A & B Note See Note S. pyogenes GrpA DIANNE Negative (Negative) 09/15/22 09/15/22 Range/Units 18:37 18:37 WBC 8.3 (4.8-10.8) X10*3/uL RBC 4.60 (4.20-5.50) X10*6/uL Hgb 14.1 (12.0-16.0) g/dl Hct 40.8 (37.0-47.0) % MCV 88.7 (80.0-98.0) fL MCH 30.7 (27.0-33.0) pg MCHC 34.6 (31.0-35.0) g/dl RDW 12.3 (11.0-16.0) % Plt Count 301 (160-400) X10*3/uL MPV 8.8 L (9.4-12.3) fL Immature Gran % (Auto) 0.5 H (0.0-0.4) % Neut % (Auto) 71.8 (45-73) % Lymph % (Auto) 21.3 (20-40) % Potter % (Auto) 5.6 (2-11) % Eos % (Auto) 0.7 (0-4) % Baso % (Auto) 0.1 (0-2) % Lymph # (Auto) 1.8 (1.2-4.9) X10*3/uL Potter # (Auto) 0.5 (0.1-1.2) X10*3/uL Eos # (Auto) 0.1 (0.0-0.4) X10*3/uL Baso # (Auto) 0.0 (0.0-0.2) X10*3/uL Abs Immat Gran (auto) 0.04 H (0.00-0.03) X10*3/uL Absolute Neuts (auto) 5.9 (2.0-8.3) x10*3/uL Absolute Nucleated RBC 0.000 (0.0-0.012) X10*3/uL Nucleated RBC % (auto) 0.0 (0.0-0.2) /100WBC Sodium 142 (135-145) mmol/L Potassium 3.5 (3.3-5.1) mmol/L Chloride 105 (96-108) mmol/L Carbon Dioxide 27 (22-29) mmol/L Anion Gap 14 (12-20) BUN 10 (9-16) mg/dL Creatinine 0.74 (0.5-1.4) mg/dL Estim Creat Clear Calc 127.8 Estimated GFR > 60 Random Glucose 84 (60-115) mg/dL Calcium 9.5 (8.4-10.2) mg/dL Total Bilirubin 0.9 (0.0-1.0) mg/dL AST 17 (5-31) U/L ALT 20 (0-31) U/L Alkaline Phosphatase 81 (39-117) U/L Total Protein 8.3 H (6.5-8.0) g/dL Albumin 4.3 (3.5-5.0) g/dL COVID-19 (CLAUDIA) (Negative) COVID-19 Clin Com Influenza Type A (DIANNE) (Negative) Influenza Type B (DIANNE) (Negative) Influenza A & B Note S. pyogenes GrpA DIANNE (Negative) Core Measures AMI core measures followed: Yes Measure exclusions: not indicated Critical Care Time Critical Care Time Critical Care Time: No Discharge Plan Discharge Clinical Impression: COVID-19 Patient Disposition: Home, Self-Care Instructions: COVID-19 (Coronavirus Disease 2019) (ED) Additional Instructions: Take your medications as prescribed. If you were prescribed antibiotics today, it is important that you take your medication to their entirety, do not skip any doses, do not finish them early. Today you tested positive for COVID-19. Take Ibuprofen or Tylenol as needed for fevers or body aches. Quarantine for 5 days and ensure you wear a mask. After 5 days you should wear a mask for 5 days after that. Practice social distancing and good hand hygiene. Drink plenty of fluids. You have a swollen gland on the left side of the floor of the mouth. However, there is no abscess Follow-up with your primary care provider this week. Return to the emergency department with new or worsening symptoms. In case of emergency call 911 You can purchase a pulse oximeter from your local pharmacy or grocery store, and monitor your oxygen saturation if it goes below 94% you should return to the emergency department for further evaluation. Prescriptions: New albuterol sulfate 90 mcg/actuation aerosol powdr breath activated 2 inh inhalation Q4-6H PRN (Reason: shortness of breath or wheezing) Qty: 1 0RF benzonatate 100 mg capsule 100 mg PO BID PRN (Reason: cough) Qty: 20 0RF No Action (DME) walker Misc See Rx Instructions .ROUTE .MEDSUPPLY Qty: 1 0RF Rx Instructions: As directed hydrocortisone [Proctosol HC] 2.5 % cream with perineal applicator See Rx Instructions SC BID 30 Days 3RF Rx Instructions: 1 dose bid SC 2 times a day; pantoprazole 40 mg tablet,delayed release (DR/EC) 40 mg PO DAILY 90 Days Qty: 90 3RF cholecalciferol (vitamin D3) 50 mcg (2,000 unit) capsule 50 mcg PO DAILY 90 Days Qty: 90 3RF albuterol sulfate 2.5 mg /3 mL (0.083 %) solution for nebulization 2.5 mg inhalation Q4H PRN (Reason: shortness of breath or wheezing) 30 Days Qty: 360 11RF (DME) Shower Chair Misc See Rx Instructions .Route Qty: 1 0RF Rx Instructions: As directed tramadol 50 mg tablet 50 mg PO Q6H PRN (Reason: pain) Qty: 20 0RF montelukast 10 mg tablet 10 mg PO DAILY Qty: 30 6RF budesonide-formoterol [Symbicort] 160-4.5 mcg/actuation HFA aerosol inhaler 2 puff inhalation BID 30 Days Qty: 10.2 11RF pregabalin 150 mg capsule 150 mg PO BID 30 Days Qty: 60 0RF Spiriva Respimat 2.5 mcg/actuation mist 2 puff PO DAILY Qty: 4 3RF (DME) A[facility]Eclipse [facility]ul[facility] See Rx Instructions .ROUTE .MEDSUPPLY Qty: 1 0RF Rx Instructions: As directed meloxicam 15 mg tablet 15 mg PO DAILY meclizine 25 mg tablet 25 mg PO TID PRN (Reason: dizziness) 7 Days Qty: 21 0RF ibuprofen 800 mg tablet 800 mg PO TID PRN Rx Instructions: Tooth removed Wednesday11/22/21. hydrochlorothiazide 25 mg tablet 25 mg PO QAM Qty: 90 3RF fluticasone propionate 50 mcg/actuation spray,suspension 2 spray intranasal DAILY 30 Days Qty: 15.8 11RF citalopram 40 mg tablet 40 mg PO DAILY zolpidem 10 mg tablet 10 mg PO BEDTIME PRN (Reason: Sleep) albuterol sulfate 90 mcg/actuation HFA aerosol inhaler 2 inh inhalation Q6H PRN (Reason: shortness of breath or wheezing) 30 Days Qty: 1 11RF benzonatate 200 mg capsule 200 mg PO BID PRN (Reason: cough) 30 Days Qty: 60 3RF roflumilast [Daliresp] 500 mcg tablet 500 mcg PO DAILY 30 Days Qty: 30 6RF codeine-guaifenesin 10-100 mg/5 mL liquid 10 ml PO Q6H PRN (Reason: cough) 10 Days Qty: 300 0RF clonazepam 1 mg tablet 1 mg PO BID PRN azelastine 137 mcg (0.1 %) aerosol,spray 2 spray intranasal BID 30 Days Qty: 30 6RF Rx Instructions: administer into each nostril Referrals: Trisha Hui MD [Primary Care Provider] - 2 days Stand Alone Forms: Work/School Release
[2022-09-15 16:05] VITALS: BP 157/93; PULSE 77; RESP 18; TEMP 36; O2SAT 100; BMI 41.9
[2022-09-15 16:55] LABS: IDNOW Serial# 08D9AD1C; Strep A Nucleic Acid Negative (Negative)
[2022-09-15 16:59] LABS: COVID-19 Test Positive (Negative); IDNOW Serial# 9DB6401D; IDNOW Serial# BCCEAD1C; Influenza A Negative (Negative); Influenza B2 Negative (Negative)
[2022-09-15 18:43] LABS: MANUAL DIFF FLAG NO
[2022-09-15 18:45] LABS: Basophils Percent Auto 0.1 % (0-2); Eosinophils Absolute Auto 0.1 X10*3/uL (0.0-0.4); Eosinophils Percent Auto 0.7 % (0-4); Hematocrit 40.8 % (37.0-47.0); Hemoglobin 14.1 g/dl (12.0-16.0); Imm Gran Abs Auto 0.04 X10*3/uL (0.00-0.03); Imm Gran Pct Auto 0.5 % (0.0-0.4); Lymphocytes Absolute Auto 1.8 X10*3/uL (1.2-4.9); Lymphocytes Percent Auto 21.3 % (20-40); Mean Corpuscular HGB Conc 34.6 g/dl (31.0-35.0); Mean Corpuscular Hemoglobin 30.7 pg (27.0-33.0); Mean Corpuscular Volume 88.7 fL (80.0-98.0); Mean Platelet Volume 8.8 fL (9.4-12.3); Monocytes Absolute Auto 0.5 X10*3/uL (0.1-1.2); Monocytes Percent Auto 5.6 % (2-11); Neutrophils Absolute Auto 5.9 x10*3/uL (2.0-8.3); Neutrophils Percent Auto 71.8 % (45-73); Platelet Count 301 X10*3/uL (160-400); Red Cell Distribution Width 12.3 % (11.0-16.0); White Blood Count 8.3 X10*3/uL (4.8-10.8)
[2022-09-15 19:07] LABS: Alanine Aminotransferase 20 U/L (0-31); Albumin Level 4.3 g/dL (3.5-5.0); Alkaline Phosphatase 81 U/L (39-117); Anion Gap 14 (12-20); Aspartate Amino Transferase 17 U/L (5-31); Bilirubin Total 0.9 mg/dL (0.0-1.0); Blood Urea Nitrogen 10 mg/dL (9-16); Calcium 9.5 mg/dL (8.4-10.2); Carbon Dioxide 27 mmol/L (22-29); Chloride 105 mmol/L (96-108); Creatinine Clr Calc Pharmacy 127.8; Estimated Glomerular Filt Rate > 60; Glucose Random 84 mg/dL (60-115); Potassium 3.5 mmol/L (3.3-5.1); Sodium 142 mmol/L (135-145); Total Protein 8.3 g/dL (6.5-8.0)
[2022-09-15 19:40] VITALS: BP 111/59; PULSE 69; RESP 15; TEMP 36.9; O2SAT 100
[2022-09-15 22:31] VITALS: BP 149/94; PULSE 82; RESP 15; TEMP 36.4; O2SAT 98
== END 2022-09-15 22:44 | disposition home or self-care (01) ==
PROVIDERS: Physician Assistant; Emergency Provider Emergency Medicine; PCP Internal Medicine
DX: U07.1 COVID-19 (principal); J02.8 Acute pharyngitis due to other specified organisms; Z79.899 Other long term (current) drug therapy
CPT/HCPCS: 36415; 70490; 80053; 85025; 87502; 87635; 87651; 99284

== ENCOUNTER → 2022-09-22 12:03 | Outpatient (BNVA) | payer OTHER, SELFPAY | PROVIDERS: PCP Internal Medicine; Visit Provider Orthopaedic Surgery | DX: G56.01 Carpal tunnel syndrome, right upper limb (principal) | CPT/HCPCS: 99202 ==

== ENCOUNTER 2022-09-30 11:51 | Outpatient (REF) | payer OTHER, SELFPAY ==
--- NOTE | 2022-09-30 11:57 | ECG_ITS ---
Test Reason : pre op Blood Pressure : / mmHG Vent. Rate : 065 BPM Atrial Rate : 065 BPM P-R Int : 126 ms QRS Dur : 104 ms QT Int : 422 ms P-R-T Axes : 007 035 -15 degrees QTc Int : 438 ms Normal sinus rhythm Incomplete right bundle branch block T wave abnormality, consider anterior ischemia Abnormal ECG When compared with ECG of 25-NOV-2021 00:18, Incomplete right bundle branch block has replaced Right bundle branch block Referred By: Geraldine Mccracken Electronically Signed By:Maninder Argueta
[2022-09-30 12:21] LABS: MANUAL DIFF FLAG NO
[2022-09-30 13:02] LABS: Basophils Percent Auto 0.1 % (0-2); Eosinophils Absolute Auto 0.1 X10*3/uL (0.0-0.4); Eosinophils Percent Auto 0.8 % (0-4); Hematocrit 39.3 % (37.0-47.0); Hemoglobin 13.9 g/dl (12.0-16.0); Imm Gran Abs Auto 0.02 X10*3/uL (0.00-0.03); Imm Gran Pct Auto 0.3 % (0.0-0.4); Lymphocytes Absolute Auto 1.2 X10*3/uL (1.2-4.9); Lymphocytes Percent Auto 16.9 % (20-40); Mean Corpuscular HGB Conc 35.4 g/dl (31.0-35.0); Mean Corpuscular Hemoglobin 30.4 pg (27.0-33.0); Mean Platelet Volume 9.6 fL (9.4-12.3); Monocytes Absolute Auto 0.4 X10*3/uL (0.1-1.2); Monocytes Percent Auto 5.3 % (2-11); Neutrophils Absolute Auto 5.5 x10*3/uL (2.0-8.3); Neutrophils Percent Auto 76.6 % (45-73); Platelet Count 306 X10*3/uL (160-400); Red Blood Count 4.57 X10*6/uL (4.20-5.50); White Blood Count 7.2 X10*3/uL (4.8-10.8)
[2022-09-30 13:12] LABS: Prothrombin Time 11.6 SEC (10.0-13.1)
[2022-09-30 13:41] LABS: Alanine Aminotransferase 24 U/L (0-31); Alkaline Phosphatase 80 U/L (39-117); Anion Gap 10 (12-20); Aspartate Amino Transferase 17 U/L (5-31); Bilirubin Total 0.7 mg/dL (0.0-1.0); Blood Urea Nitrogen 11 mg/dL (9-16); Calcium 9.3 mg/dL (8.4-10.2); Carbon Dioxide 27 mmol/L (22-29); Chloride 103 mmol/L (96-108); Estimated Glomerular Filt Rate > 60; Glucose Random 90 mg/dL (60-115); Potassium 3.6 mmol/L (3.3-5.1); Sodium 136 mmol/L (135-145); Total Protein 7.7 g/dL (6.5-8.0)
[2022-09-30 13:45] LABS: Erythrocyte Sedimentation Rate 20 MM/HR (0-20)
[2022-09-30 13:55] LABS: TSH reflex Free T4 0.54 uIU/mL (0.32-4.0)
[2022-10-02 12:19] LABS: Immunoglobulin G Subclass 1 769 mg/dL (382-929); Immunoglobulin G Subclass 2 657 mg/dL (241-700); Immunoglobulin G Subclass 3 45 mg/dL (22-178); Immunoglobulin G Subclass 4 77.4 mg/dL (4-86); Immunoglobulin G Total 1566 mg/dL (600-1640)
[2022-10-02 18:24] LABS: IgA 340 mg/dL (47-310); IgG 1730 mg/dL (600-1640); IgM 111 mg/dL (50-300)
== END 2022-09-30 11:52 | disposition home or self-care (01) ==
LOC: HO.LAB 11:51
PROVIDERS: Absent Provider Hospitalist; PCP Internal Medicine; Visit Provider Nurse Practitioner Family
DX: Z01.812 Encounter for preprocedural laboratory examination (principal); Z13.0 Encounter for screening for diseases of the blood and blood-forming organs and certain disorders involving the immune mechanism; J32.9 Chronic sinusitis, unspecified; J45.909 Unspecified asthma, uncomplicated; R05.3 Chronic cough
CPT/HCPCS: 36415; 80053; 82784; 82785; 84443; 85025; 85610; 85652; 86003; 93005

== ENCOUNTER 2022-10-01 10:02 | Day surgery (SDC) | payer OTHER, SELFPAY ==
[2022-10-01 10:40] VITALS: BP 128/88; PULSE 64; RESP 16; TEMP 36.3; O2SAT 98
[2022-10-01 10:44] VITALS: BMI 40.7
--- NOTE | 2022-10-01 15:06 | P.OP_ITS ---
Operative Note Operative Note Date of Service: 10/01/22 Narrative: Preop diagnosis: 1. Recurrent right Carpal tunnel syndrome Postop diagnosis: same Procedure: 1. Repeat right Carpal tunnel release Surgeon: Romana Feldman MD Anesthesia: local block using 1% lidocaine with epinephrine Findings: Thickened transverse carpal ligament. EBL: Less than 5 mL Specimens: None Complications: None Disposition: Brought to recovery room in stable condition Plan: Follow-up for 10-14 days for wound check and suture removal Indications: The patient is 42 years old, with recurrent right carpal tunnel syndrome status post carpal tunnel releases in 2018 and 2019 with significant improvement after the carpal tunnel release in 2019. She then had a recurrence of symptoms in the last 6 months and now has dense numbness.. The risks and benefits of operative treatment including but not limited to risk of damage to blood vessels, nerves, tendons, infection, persistent pain, persistent symptoms, or possible need for additional surgery were discussed with the patien t and the patient wishes to proceed with surgery. Procedure: Once consent was obtained a local block was performed using a combination of 1% lidocaine with epinephrine. The patient was then brought back to the operating suite and placed on the operative table in supine position. The right upper extremity was prepped and draped in a standard surgical fashion. Once assured that we had a good block, a 2.0 cm longitudinal incision was made centered over the carpal tunnel and extended in a zigzag fashion proximal to the distal wrist crease by about 2 cm.. The incision was made through the skin to the subcutaneous tissues using a #15 blade. Dissection was made down to the palmaris longus tendon in the proximal aspect of the incision. The palmaris longus was then retracted radially and I open the volar forearm fascia longitudinally using tenotomy scissors under direct visualization. This then exposed the median nerve in the distal forearm. While protecting the median nerve I was then able to incise the scar over the volar aspect of the carpal tunnel longitudinally 1st using a 15. Blade then using tenotomy scissors. This was all done under direct visualization. She did have significant scarring over the carpal tunnel. I then assured that I released the median nerve distally into the palm again with care to protect the neurovascular structures. Once satisfied with our carpal tunnel release the wound was copiously irrigated with normal saline and hemostasis was obtained with a brief period of local pressure. The skin edges were reapproximated with some 5.0 nylon suture material and a sterile dressing was applied. The patient appears to have tolerated the procedure well and with no complications. All digits were well vascularized at the conclusion of the case.
--- NOTE | 2022-10-01 15:06 | MHC.SHP ---
Pre-Procedural Eval Section A Date of Service: 10/01/22 The patient is an INPATIENT: No Changes since office visit: No Cold of Flu in the past 2 weeks, No New Medical Problems, No Changes in Medication and No Patient answered all questions The History & Physical has been completed within 30 days and I have reviewed it.: Yes Section B Chief Complaint: Carpal tunnel syndrome, right upper limb Allergies: Allergies Allergy/AdvReac Type Severity Reaction Status Date / Time Iodinated Contrast Media Allergy Severe ANAPHYLAXIS Verified 10/01/22 10:40 [IV CONTRAST] cyclobenzaprine Allergy Intermediate NUMBNESS Verified 10/01/22 10:40 [From FLEXERIL] gadobutrol [From GADAVIST] Allergy Intermediate DIFFICULTY Verified 10/01/22 10:40 BREATHING perfume [PERFUME] Allergy Intermediate TRIGGERS Verified 10/01/22 10:40 ASTHMA prednisone Allergy Intermediate swelling Verified 10/01/22 10:40 Plan I have reviewed the history and physical and performed a pertinent physical examination on my patient. No changes have occurred unless specified. Time Spent With Patient Time: Total time managing care of this patient today ____ minutes.
[2022-10-01 15:18] VITALS: BP 102/66; PULSE 59; RESP 16; O2SAT 97
== END 2022-10-01 15:39 | disposition home or self-care (01) ==
PROVIDERS: PCP Internal Medicine; Visit Provider Orthopaedic Surgery
PROC: (CPT 64721; principal; 2022-10-01 11:20)
DX: G56.01 Carpal tunnel syndrome, right upper limb (principal); J45.909 Unspecified asthma, uncomplicated; Z91.041 Radiographic dye allergy status; Z88.8 Allergy status to other drugs, medicaments and biological substances
CPT/HCPCS: 64721; J0171

== ENCOUNTER 2022-10-12 10:27 | Outpatient (AMB) | payer OTHER, SELFPAY ==
[2022-10-12 10:47] VITALS: BP 130/92; PULSE 70; O2SAT 98; BMI 42.1
--- NOTE | 2022-10-12 10:47 | MHC.PC.OV ---
Vital Signs 10/12/22 10:47 Height 5 ft 6 in Weight 261 lb BMI 42.1 BP 130/92 H Blood Pressure Location Lt brachial Position Sitting Pulse 70 Pulse Source Pulse Oximeter Pulse Oximetry (%) 98 Oxygen Delivery Method Room Air Intake Visit Reasons: ? 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: No Accompanied by: Self / Same As Patient Allergies Iodinated Contrast Media [IV CONTRAST] Allergy (Severe, Verified 10/12/22 11:00) ANAPHYLAXIS cyclobenzaprine [From FLEXERIL] Allergy (Intermediate, Verified 10/12/22 11:00) NUMBNESS gadobutrol [From GADAVIST] Allergy (Intermediate, Verified 10/12/22 11:00) DIFFICULTY BREATHING perfume [PERFUME] Allergy (Intermediate, Verified 10/12/22 11:00) TRIGGERS ASTHMA prednisone Allergy (Intermediate, Verified 10/12/22 11:00) swelling Medication List - Last Reconciled 10/12/22 by Trisha Aaron MD albuterol sulfate 90 mcg/actuation 2 inhalations inhalation Q4-6H PRN albuterol sulfate 2.5 mg (3 mL) inhalation Q4H PRN 30 days albuterol sulfate 90 mcg/actuation 2 inhalations inhalation Q6H PRN 30 days NS azelastine 2 sprays intranasal BID 30 days cholecalciferol (vitamin D3) 50 mcg PO DAILY 90 days citalopram 40 mg PO DAILY clonazepam 1 mg PO BID PRN commode As directed fluticasone propionate 50 mcg/actuation 2 sprays intranasal DAILY 30 days hydrochlorothiazide 25 mg PO QAM ibuprofen 800 mg PO TID PRN meclizine 25 mg PO TID PRN 7 days meloxicam 15 mg PO DAILY montelukast 10 mg PO DAILY nebulizers (AeroEclipse II Nebulizer) As directed oxycodone-acetaminophen 5-325 mg 1 tab PO Q6H PRN pantoprazole 40 mg PO DAILY 90 days pregabalin 150 mg PO BID 30 days Proctosol HC 2.5% (hydrocortisone) 1 dose bid HI 2 times a day; 30 days NS roflumilast (Daliresp) 500 mcg PO DAILY 30 days Shower Chair As directed Spiriva Respimat 2.5 mcg/actuation (tiotropium bromide) 2 puffs PO DAILY NS Symbicort 160-4.5 mcg/actuation (budesonide-formoterol) 2 puffs inhalation BID 30 days NS tramadol 50 mg PO Q6H PRN walker As directed zolpidem 10 mg PO BEDTIME PRN Tobacco use date assessed: 09/25/22 Dental Screening Dental Screen Date: 10/12/22 Did you have a dental visit in the last 12 months?: Yes Did you have a dental problem in the last 6 months where you did not have access to dental care?: No Was dental information given to patient?: Patient has dentist HPI HPI Comments History of Present Illness Details This is a 42-year-old female with morbid obesity, mild recurrent major depression and vertigo that complains of for urge urinary incontinence that started recently. I advised to time bathroom visits. For her vertigo I will refer her to vestibular therapy. Dizziness happen with sudden changes in head position. Depression stable with citalopram. She is morbidly obese with a BMI of 42.1 was advised to diet and exercise to reach BMI goal less than 30. She also has an abnormal neck CT of soft tissue and will be referred to ENT. 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 FORMERLY [facility] Medical History (Updated 10/12/22 @ 11:53 by Trisha Aaron MD) Ankle pain, right Asthma Breast mass, right Breast pain, left Chronic cough Chronic neck pain COVID-19 Fibromyalgia Frequent falls Generalized anxiety disorder H. pylori duodenitis Hypovitaminosis D Labial lesion Left elbow pain Leg edema Low back pain Menieres disease Mild recurrent major depression Morbid obesity Ophthalmoplegic migraine AIRAM (obstructive sleep apnea) Panic attacks Pleuritic chest pain Polyarthralgia RBBB (right bundle branch block) Rectal bleeding Right elbow pain Sinusitis Skin lesion Submandibular lymphadenopathy Surgical History History of carpal tunnel surgery of right wrist History of section History of cholecystectomy History of colonoscopy History of endoscopy History of hysterectomy History of tubal ligation Family History Father Oral cancer Thyroid cancer Colon cancer Mother NIDDY (non-insulin dependent diabetes mellitus in young) Gastric ulcer Paternal Grandfather Colon cancer Paternal Uncle Colon cancer Other Family history of colon cancer in father Social History Housing: House Are you a primary zoo caretaker to a significant other at home: No Alcohol intake: never Patient Tobacco Use Status: Never used Tobacco e-Cigarette/Vaping Use: Never Used Second Hand Smoke Exposure: No service: No Current occupational status: disabled Sexual orientation: Straight/Heterosexual Gender identity: Female Cognitive needs: Yes Hearing needs: No Vision needs: No Questionnaire Thrive Questionnaire Date Thrive assessed: 09/25/22 LALIT-7 AMB Questionnaire LALIT-7 Date LALIT - 7 assessed: 09/25/22 Source: Developed by Drs. Juarez Westfall, Suzie Delarosa, Cornelius Brown and colleagues, with an educational nella from [employer]. Review of Systems Const All systems reviewed & are unremarkable except as noted in HPI and below Eyes Reports no additional complaints, Denies change in vision and Denies other visual disturbances Card Denies chest pain at rest, Denies chest pain with activity, Denies edema, Denies irregular heart rhythm, Denies claudication, Denies dyspnea, Denies dyspnea on exertion, Denies orthopnea, Denies paroxysmal nocturnal dyspnea and Denies slow heart rate Resp Denies cough, Denies dyspnea and Denies dyspnea on exertion GI Denies abdominal pain, Denies change in bowel habits, Denies excessive flatus, Denies nausea and Denies vomiting Denies urinary incontinence, Denies urinary hesitancy and Denies urinary urgency Musc Denies abnormal gait, Denies atrophy, Denies deformity and Denies limited range of motion Skin/Breast Denies bleeding lesions, Denies changing lesions and Denies rash Neuro Denies abnormal gait and Denies lack of coordination Physical exam (Primary Care) Vital Signs: Last Vital Signs Pulse 70 10/12/22 10:47 BP 130/92 H 10/12/22 10:47 Pulse Ox 98 10/12/22 10:47 Oxygen Delivery Method Room Air 10/12/22 10:47 BMI result Body Mass Index 42.1 Tobacco/Smoking Status: Tobacco use Status Tobacco use date assessed 09/25/22 10/12/22 10:52 Patient Tobacco Use Status Never used Tobacco 10/12/22 10:52 e-Cigarette/Vaping Use Never Used 10/12/22 10:52 Thrive Assessment: Date of Thrive Assessment Date Thrive assessed 09/25/22 10/12/22 10:52 Eyes General: appearance normal, both eyes and all related structures Eyelids: Yes eyelids normal Conjunctivae: conjunctivae normal Neck Neck: Yes normal visual inspection and Yes supple Resp Effort & Inspection: normal respiratory effort Auscultation: clear to auscultation bilaterally Cardio Jugular venous distension: no JVD Rate: regular rate Rhythm: regular rhythm Heart sounds: S1 normal heart sound present and S2 normal heart sound present Extrem General: Yes full ROM Assessment and Plan Assessment & Plan (1) Urge urinary incontinence: Code(s): N39.41 - Urge incontinence Plan: Advised to time bathroom visits. (2) Vertigo: Code(s): R42 - Dizziness and giddiness Plan: Start physical therapy (3) Mild recurrent major depression: Code(s): F33.0 - Major depressive disorder, recurrent, mild Plan: Continue citalopram (4) Morbid obesity: Code(s): E66.01 - Morbid (severe) obesity due to excess calories Plan: Start diet and exercise. BMI goal is less than 30. Orders: Orders PT Evaluation and Treatment Today R42 - Dizziness and giddiness Referrals Ear/Nose/Throat Referral J32.9 - Chronic sinusitis, unspecified Medications: New fluticasone propionate 50 mcg/actuation (Flonase Allergy Relief) administer into each nostril 1 spray intranasal DAILY 30 days 16 grams 0RF Refilled pantoprazole 40 mg PO DAILY 90 days 90 tabs 3RF K21.9 - Gastro-esophageal reflux disease without esophagitis Coding Level of Care Code Est Pt Level 4 (42906) Diagnoses Urge urinary incontinence N39.41 Vertigo R42 Mild recurrent major depression F33.0 Morbid obesity E66.01 Time Spent (min) 22
== END 2022-10-12 11:16 | disposition home or self-care (01) ==
PROVIDERS: PCP Internal Medicine; Visit Provider Internal Medicine
DX: N39.41 Urge incontinence (principal); F33.0 Major depressive disorder, recurrent, mild; E66.01 Morbid (severe) obesity due to excess calories; Z68.41 Body mass index [BMI] 40.0-44.9, adult; R42 Dizziness and giddiness
CPT/HCPCS: 99214

== ENCOUNTER 2022-10-14 14:50 | Outpatient (AMB) | payer OTHER, SELFPAY ==
[2022-10-14 15:08] VITALS: BMI 42.1
--- NOTE | 2022-10-14 15:08 | MHC.OFFVIS ---
Intake Vital Signs 10/14/22 15:08 Height 5 ft 6 in Weight 261 lb BMI 42.1 Intake Visit Reasons: PO R CTR Repeat 10/01/22 AR Intake Note: Mona 42 yr old female presents today for p/o visit for her right repeat CTR from 10/01/22. States she has soreness in wrist. Patient states her numbness has improved. Sutures removed and steri strips applied. Allergies Iodinated Contrast Media [IV CONTRAST] Allergy (Severe, Verified 10/14/22 15:11) ANAPHYLAXIS cyclobenzaprine [From FLEXERIL] Allergy (Intermediate, Verified 10/14/22 15:11) NUMBNESS gadobutrol [From GADAVIST] Allergy (Intermediate, Verified 10/14/22 15:11) DIFFICULTY BREATHING perfume [PERFUME] Allergy (Intermediate, Verified 10/14/22 15:11) TRIGGERS ASTHMA prednisone Allergy (Intermediate, Verified 10/14/22 15:11) swelling HPI PO R CTR Repeat 10/01/22 AR HPI Details Mona is a 42 year old right hand dominant Wolof speaking woman who presents S/P right repeat carpal tunnel release, DOS: 10/01/22 She has a Hx of 2 previous right Carpal tunnel releases by Dr. Weldon in 2018 & 2019. She says today that her sensation has improved in her hand, but is not normal. she says her nighttime symptoms have improved since her surgery, which she is happy about. She has some soreness but says this is tolerable. Initially had dense numbness in the median nerve distribution. Following her initial surgery there was no improvement in her symptoms. Dr. Weldon brought her back to the OR and performed a repeat release, and she says her sensation returned to normal following this second surgery Of note, she is 42 and unemployed due to having Fibromyalgia, anxiety, depression, and a Hx of panic attacks. ? FOR[facility]LY [facility] Medical History Ankle pain, right Asthma Breast mass, right Breast pain, left Chronic cough Chronic neck pain COVID-19 Fibromyalgia Frequent falls Generalized anxiety disorder H. pylori duodenitis Hypovitaminosis D Labial lesion Left elbow pain Leg edema Low back pain Menieres disease Mild recurrent major depression Morbid obesity Ophthalmoplegic migraine AIRAM (obstructive sleep apnea) Panic attacks Pleuritic chest pain Polyarthralgia RBBB (right bundle branch block) Rectal bleeding Right elbow pain Sinusitis Skin lesion Submandibular lymphadenopathy Surgical History History of carpal tunnel surgery of right wrist History of section History of cholecystectomy History of colonoscopy History of endoscopy History of hysterectomy History of tubal ligation Family History Father Oral cancer Thyroid cancer Colon cancer Mother NIDDY (non-insulin dependent diabetes mellitus in young) Gastric ulcer Paternal Grandfather Colon cancer Paternal Uncle Colon cancer Other Family history of colon cancer in father Social History Housing: House Are you a primary career technical supervisor to a significant other at home: No Alcohol intake: never Patient Tobacco Use Status: Never used Tobacco e-Cigarette/Vaping Use: Never Used Second Hand Smoke Exposure: No service: No Current occupational status: disabled Sexual orientation: Straight/Heterosexual Gender identity: Female Cognitive needs: Yes Hearing needs: No Vision needs: No Review of Systems Const All systems reviewed & are unremarkable except as noted in HPI and below Physical Exam Vital Signs: BMI result Body Mass Index 42.1 Const General: no acute distress and alert Orientation/consciousness: patient oriented x3 Neuro General: patient oriented x3 Extrem Other: The patient was alert oriented and in no acute distress The incision is healing well with no erythema drainage or evidence of infection. Sutures removed and Steri-Strips applied She can make a fist and extend all her digits Still with numbness in the median nerve distribution of the right hand, slightly improved following surgery Cap refill is brisk Nerve Conduction Studies: IMPRESSION: Early carpal tunnel syndrome on the right, no significant changes since last NCS in 2020. Normal EMG of the right C5-T1 innervated muscles Steven Smith MD 05/26/22 IMPRESSION:? Nerve conduction EMG study:? Normal electrodiagnostic study of both upper extremity with no evidence of carpal tunnel syndrome or nerve entrapment. ? Normal EMG of the right C5-T1 innervated muscles. Steven Smith MD 10/09/2020 Psych Appearance: grossly normal Affect: normal affect Attitude: cooperative Assessment & Plan Assessment & Plan (1) Carpal tunnel syndrome of right wrist: Code(s): G56.01 - Carpal tunnel syndrome, right upper limb (2) History of carpal tunnel surgery of right wrist: Comment: (Rt carpal tunnel release 03/16/2018; revision 11/30/2018 - Dr. Weldon, [facility]) Code(s): Z98.890 - Other specified postprocedural states Plan Assessment & Plan: 1. Right recurrent carpal tunnel syndrome, S/P repeat release DOS: 10/01/22 S/P carpal tunnel release on 03/16/18, with no improvement Repeat release on 11/30/18, with good improvement of her symptoms following her second surgery Both performed by Dr. Weldon Pre-operatively with dense numbness Now with slightly improved but not normal sensation, but good resolution of her nighttime symptoms The patient appears to be doing well post-operatively She is very happy with the results of her surgery as she is now able to sleep comfortably I educated her about the post-operative course I discussed activity modifications, she is to lift nothing heavier than a cellphone for the next two weeks She will perform gentle ROM exercises at home She should avoid any underwater activities for the next 5 days She should gently massage about the incision site to reduce the risk of hypersensitivity She can follow up prn Scribed for Romana Feldman MD by Mason Ochoa, medical physiologist, on 10/14/22 at 3:25 PM, EST. Coding Level of Care Code Global (12723) Diagnoses Carpal tunnel syndrome of right wrist G56.01 History of carpal tunnel surgery of right wrist Z98.890
== END 2022-10-14 16:03 | disposition home or self-care (01) ==
PROVIDERS: PCP Internal Medicine; Visit Provider Orthopaedic Surgery
DX: Z47.89 Encounter for other orthopedic aftercare (principal); G56.01 Carpal tunnel syndrome, right upper limb
CPT/HCPCS: 99024

== ENCOUNTER → 2022-10-14 14:50 | Outpatient (BNVA) | payer OTHER, SELFPAY | PROVIDERS: PCP Internal Medicine; Visit Provider Orthopaedic Surgery ==

== ENCOUNTER 2022-11-06 14:15 | Outpatient (AMB) | payer OTHER, SELFPAY ==
[2022-11-06 14:19] VITALS: PULSE 79; O2SAT 98; BMI 40.2
--- NOTE | 2022-11-06 14:19 | MHC.OFFVIS ---
Intake Vital Signs 11/06/22 14:19 Height 5 ft 6 in Weight 249 lb BMI 40.2 Pulse 79 Pulse Source Pulse Oximeter Pulse Oximetry (%) 98 Oxygen Delivery Method Room Air Intake Visit Reasons: Asthma Human Resources Safety Manager Required: No Allergies Iodinated Contrast Media [IV CONTRAST] Allergy (Severe, Verified 11/06/22 14:20) ANAPHYLAXIS cyclobenzaprine [From FLEXERIL] Allergy (Intermediate, Verified 11/06/22 14:20) NUMBNESS gadobutrol [From GADAVIST] Allergy (Intermediate, Verified 11/06/22 14:20) DIFFICULTY BREATHING perfume [PERFUME] Allergy (Intermediate, Verified 11/06/22 14:20) TRIGGERS ASTHMA prednisone Allergy (Intermediate, Verified 11/06/22 14:20) swelling HPI HPI Comments History of Present Illness Details The patient is a 42 year old woman with a known history of severe persistent asthma. She had been on Advair both the Diskus in the HFA but resulted in adverse side effects. She can no longer uses medicines. A distant Symbicort and she did start using the medicine but has not been filled at the pharmacy as of yet. She is also using Spiriva. For the last month and have her respiratory status has been getting worse. She has had to go to urgent care and also to the ER twice. She was placed on prednisone twice. She has no better. She still having exacerbations of the breathing specially at nighttime. She has severe spells resulting in nausea and dry heaves. She is very concerned for the fact that she is not getting any better. She also complains of significant postnasal drip that is aggravating her symptoms. She is not sure of his allergy related or cold related. She has not had any blood work or x-rays recently. She did have a sleep study although very limited because it had only recorded a small amount of information. She states that she still has daytime drowsiness. She feels that she has significant snoring. And she does get tired during the daytime with an elevated [place] score of 12/24. We did do allergy testing but she will only tested positive for mild allergy to cockroaches the rest of the rest study was negative and her eosinophils were normal. Therefore she doesn't qualify for biologics. In the meantime she continues to have daytime drowsiness. She did have a sleep study done demonstrating severe sleep apnea. At this point based on her symptoms the patient needs to start CPAP therapy RODERICK. Arrangements will be made with local [employer] company to start CPAP therapy at this time. 03/12/2020 the patient is here for pulmonary follow-up visit. She still complains about episodic difficulty breathing related to her asthma. She does use her respiratory medications as prescribed. She has been tolerating a full dose Daliresp. She has noticed by 10 lb weight loss. The patient has been using her nebulizer 2 to 3 times a day. We did assess for biologic therapy with the patient did not qualify. She is also using her CPAP. The CPAP therapy continues to be affecting beneficial. She continues using more than 4 hours a night. Will continue trying to optimize respiratory therapy hoping to minimize her steroid requirements. Also to note she did have a fall and she hurt her elbow. She did need a cortisone shot to the elbow because of significant pain. 06/20/2020 the patient is here for pulmonary follow-up visit. The patient has been complaining of worsening shortness of breath specially after having surgery. She had her uterus taking all due to endometriosis. The surgery was a success. She tolerated anesthesia well. But now she is getting some pleuritic discomfort primarily at the bases. She also has some increasing shortness of breath. She has been using her rescue inhaler more often. She has been using her Symbicort Spiriva although sparingly. She is going to start using regularly and see if there more effective for her. Also, that she needs a rescue inhaler that she can use as needed. I will provide that for her. If the symptoms persist and she is no better then will see about switching her to something else like Trelegy where she can have more compliance. In the meantime she has been struggling with her CPAP. She cannot tolerate the fullface mask. I did have a nasal pillow here in the office echo provide her. She is going to try that when she gets home. She can also try to usually during the daytime to get used to it. Hopefully she can start using more often. The therapy has been affecting beneficial for her. The patient also had a recent fall. She did hurt her right side when she fell prior to her surgery. At this point is not on reasonable to get a chest x-ray to make sure she did not have any contusions or fractures from that fall. 11/21/2020 the patient is here for a pulmonary follow-up visit. For about a month now she has been complaining worsening cough and shortness of breath. There positive sick contacts in the family. Once she was sick she did get tested for COVID which was negative. She did get checked additionally because she was not sure based on her symptoms. She took [id number] cough syrup the medications without significant improvement. She continues having significant coughing episodes specially at nighttime affecting her sleep. She has developed some left lower chest area discomfort upon breathing and coughing. She does expectorate some yellow mucus at times with sometimes difficult for her to expectorate. She does feel congested. She has been using her nebulizer with some partial resolution of her symptoms. Sometimes when she is feeling really back she doubles up on her treatments. In the office she does have some rhonchi and she does have some decreased breath sounds. The patient is having a significant cough which is aggravating her. She appears to have lack of sleep. Therefore will treated for bronchopneumonia likely post viral and likely exacerbating her asthma. The patient will be getting an x-ray as well. Will make sure she has a follow-up next week to reassess. Otherwise if she is worse she needs to go to the ER. 05/21/2022 the patient is here for a pulmonary follow-up visit. She was doing well until 2 days ago when she started developing worsening cough. At some point her coughing was so significant that she lost her balance and she fell and hurt her right elbow. She definitely at [facility] approve it. The patient has been using her inhalers only with partial resolution of the symptoms. She feels like she is getting a cold and a respiratory illness. In the meantime she does continue to use her CPAP every night. The CPAP therapy continues to be affecting beneficial. She has been using her respiratory medications as prescribed. She was supposed to be on Daliresp for some reason is no longer on her list of medications. Therefore I will responded to the pharmacy. I am hopeful that with the Daliresp we can prevent prednisone for the patient and decrease her exacerbations. 08/11/2022 the patient is here for pulmonary follow-up visit. The patient just recently got back from [place]. When she was there she was sick likely with viral syndrome. She was evaluated urgent care was given prednisone and also course of antibiotics. The patient does have significant cough variant asthma. She has been on a very aggressive regimen including Daliresp in addition to Symbicort and Spiriva. For her cough she does respond well to the Bentson I's and also cough syrup. Will provide her other medications she continues stable. Unfortunately they just get a diagnosis of cancer and her nephew of 3 years old. This caused significant stress and has caused her respiratory symptoms to worsen. Will continue to manage her symptoms. In the meantime she also complains of a pleuritic type of discomfort primarily in the the right lung on the back area specially with taking deep breath. Will go and repeat a chest x-ray to make sure. She will also request allergy testing done to be done again in order to see if she is a candidate for biologic therapy in order to improve her respiratory capacity and asthma treatment. The patient continues use her CPAP every night. CPAP therapy has been affecting beneficial. She does use it for more than 4 hours a night. She has been getting supplies readily. 11/06/2022 the patient is here for a pulmonary follow-up visit. She continues to struggle with productive cough and chronic bronchitis. She is on optimize respiratory therapy at this time. We did blood work assessing her for potential biologics that the patient does not qualify as she does have a new and eosinophil count and normal IgE level. Therefore, will go ahead and start her on azithromycin for chronic bronchitis. She can take that 3 times a week. The patient is also having issues with sinus congestion and chronic sinusitis. She has tolerated Sudafed in the past. We also talked about Neti pot a rinsing as lungs is with distilled water. In 4 2-4 weeks she can try using budesonide to help her with the inflammatory disease. [facility] Medical History Ankle pain, right Asthma Breast mass, right Breast pain, left Chronic cough Chronic neck pain COVID-19 Fibromyalgia Frequent falls Generalized anxiety disorder H. pylori duodenitis Hypovitaminosis D Labial lesion Left elbow pain Leg edema Low back pain Menieres disease Mild recurrent major depression Morbid obesity Ophthalmoplegic migraine AIRAM (obstructive sleep apnea) Panic attacks Pleuritic chest pain Polyarthralgia RBBB (right bundle branch block) Rectal bleeding Right elbow pain Sinusitis Skin lesion Submandibular lymphadenopathy Surgical History History of carpal tunnel surgery of right wrist History of section History of cholecystectomy History of colonoscopy History of endoscopy History of hysterectomy History of tubal ligation Family History Father Oral cancer Thyroid cancer Colon cancer Mother JEOL (non-insulin dependent diabetes mellitus in young) Gastric ulcer Paternal Grandfather Colon cancer Paternal Uncle Colon cancer Other Family history of colon cancer in father Social History Housing: House Are you a primary healthcare insurance sales agent to a significant other at home: No Alcohol intake: never Patient Tobacco Use Status: Never used Tobacco e-Cigarette/Vaping Use: Never Used Second Hand Smoke Exposure: No service: No Current occupational status: disabled Sexual orientation: Straight/Heterosexual Gender identity: Female Cognitive needs: Yes Hearing needs: No Vision needs: No Review of Systems Const Denies chills, Denies fever(s) and Denies night sweats ENT Denies change in voice, Denies mouth pain, Reports nasal congestion, Reports nasal discharge, Denies sinus pain, Denies sinus pressure and Denies tongue swelling Card Denies chest pain, Denies dyspnea and Reports dyspnea on exertion Resp Denies change in phlegm color, Reports chest congestion, Reports cough, Denies pain on inspiration, Denies pain with cough, Denies dyspnea, Reports dyspnea on exertion and Reports wheezing GI Denies abdominal pain Musc Denies no additional complaints Neuro Denies Neuro-related abnormal movements Psych Denies no additional complaints Jacob/Lymph Denies easy bleeding and Denies lymphadenopathy Aller/Immun Denies tongue swelling and Reports wheezing Physical Exam Vital Signs: Last Vital Signs Pulse 79 11/06/22 14:19 Pulse Ox 98 11/06/22 14:19 Oxygen Delivery Method Room Air 11/06/22 14:19 BMI result Body Mass Index 40.2 Const General: alert and awake Orientation/consciousness: patient oriented x3 HEENT Head: Yes normal to inspection Face and sinus: Yes sinuses nontender Mouth: oropharynx normal Throat: Yes posterior oropharynx normal Eyes General: appearance normal, both eyes and all related structures Neck Neck: Yes normal visual inspection, Yes no lymphadenopathy, Yes trachea midline and Yes no JVD Chest Chest palpation & inspection: normal inspection of the chest, normal palpation of entire chest wall and no tenderness Resp Effort & Inspection: normal respiratory effort and no cough Auscultation: no wheezes and diminished lung sounds Cardio Palpation: normal PMI Rate: regular rate Rhythm: regular rhythm Heart sounds: no gallops and no murmurs GI Palpation (GI): Soft to palpation, nontender, No hepatosplenomegaly present, no masses and Other GI palpation findings present (Abdomen is obese and protuberant) Auscultation: normal bowel sounds Skin General skin exam: no rashes or lesions noted Neuro General: patient oriented x3 and no focal motor deficits Cranial nerves: Yes CN's II-XII intact bilaterally Extrem General: Yes normal to inspection, Yes no clubbing, cyanosis or edema and Yes no calf tenderness Psych Speech and movement: Normal speech and movement present Affect: Anxious affect present Assessment & Plan Assessment & Plan (1) Asthma: Code(s): J45.909 - Unspecified asthma, uncomplicated Qualifiers: Asthma complication type: uncomplicated Asthma persistence: persistent Asthma severity: severe Qualified Code(s): J45.50 - Severe persistent asthma, uncomplicated (2) AIRAM (obstructive sleep apnea): Comment: (mild AIRAM, AHI 10.1 on 08/22/17 sleep study) Code(s): G47.33 - Obstructive sleep apnea (adult) (pediatric) (3) Cough: Code(s): R05.9 - Cough, unspecified (4) Chronic allergic rhinitis: Code(s): J30.9 - Allergic rhinitis, unspecified (5) Chronic cough: Code(s): R05.3 - Chronic cough Plan continue symbicort continue spiriva continue Daliresp start Azithromycin MWF start pseudophed continue nebulizer therapy cough medine: Tessalon pearls, cough syrup not a candidate for biologic therapy continue CPAP therapy CXR F/U 3-4 months Medications: New azithromycin Take 1 tablet on Wednesday/Wednesday/Wednesday 250 mg PO 3XW 28 days 12 tabs 6RF K21.9 - Gastro-esophageal reflux disease without esophagitis pseudoephedrine HCl ER 120 mg PO Q12H 30 days 60 tabs 1RF Refilled albuterol sulfate 2.5 mg (3 mL) inhalation Q4H 30 days PRN 360 mL 11RF shortness of breath or wheezing Coding Level of Care Code Est Pt Level 4 (63138) Diagnoses Asthma J45.50 Asthma complication type: uncomplicated Asthma persistence: persistent Asthma severity: severe AIRAM (obstructive sleep apnea) G47.33 Cough R05.9 Chronic allergic rhinitis J30.9 Chronic cough R05.3 Time Spent (min) 18
== END 2022-11-06 14:39 | disposition home or self-care (01) ==
PROVIDERS: PCP Internal Medicine; Visit Provider Hospitalist
DX: J45.50 Severe persistent asthma, uncomplicated (principal); G47.33 Obstructive sleep apnea (adult) (pediatric); R05.9 Cough, unspecified; J30.9 Allergic rhinitis, unspecified; R05.3 Chronic cough
CPT/HCPCS: 99214

== ENCOUNTER → 2022-11-06 14:15 | Outpatient (BNVA) | payer OTHER, SELFPAY | PROVIDERS: PCP Internal Medicine; Visit Provider Hospitalist | DX: J45.50 Severe persistent asthma, uncomplicated (principal); J30.9 Allergic rhinitis, unspecified; R05.3 Chronic cough; G47.33 Obstructive sleep apnea (adult) (pediatric) | CPT/HCPCS: 99212 ==

== ENCOUNTER 2022-12-14 14:12 | Outpatient (REF) | payer OTHER, SELFPAY | END 2022-12-14 14:13 | disposition home or self-care (01) | LOC: HO.MAMMO 14:12 | PROVIDERS: PCP Internal Medicine; Visit Provider Internal Medicine | DX: Z12.31 Encounter for screening mammogram for malignant neoplasm of breast (principal) | CPT/HCPCS: 77063; 77067 ==

== ENCOUNTER → 2022-12-14 14:15 | Outpatient (BNV) | payer OTHER, SELFPAY | PROVIDERS: PCP Internal Medicine; Visit Provider Radiology Diagnostic Radiology | DX: Z12.31 Encounter for screening mammogram for malignant neoplasm of breast (principal) | CPT/HCPCS: 77063; 77067 ==

== ENCOUNTER 2023-01-26 08:45 | Outpatient (AMB) | payer OTHER, SELFPAY ==
--- NOTE | 2023-01-26 08:49 | MHC.PC.OV ---
Vital Signs 01/26/23 08:50 Height 5 ft 6 in Weight 278 lb 2 oz BMI 44.9 BP 142/80 H Blood Pressure Location Lt brachial Position Sitting Pulse 66 Pulse Source Pulse Oximeter Pulse Oximetry (%) 100 Oxygen Delivery Method Room Air Intake Visit Reasons: [facility] 01/14 chest pain Intake Note: Patient is here to follow-up after a visit the emergency department at [facility] on 01/14/23. Had high bp with chest pain, complain of ankle pain and fell yesterday. Environmental Project Manager Required: Yes Environmental Project Manager Language: Forecast Analyst Name: Jen ([id number]) Information Interpreted: non-clinical & clinical Financial Services Assistant: Not Required per policy Accompanied by: Self / Same As Patient Allergies Iodinated Contrast Media [IV CONTRAST] Allergy (Severe, Verified 01/26/23 09:10) ANAPHYLAXIS cyclobenzaprine [From FLEXERIL] Allergy (Intermediate, Verified 01/26/23 09:10) NUMBNESS gadobutrol [From GADAVIST] Allergy (Intermediate, Verified 01/26/23 09:10) DIFFICULTY BREATHING perfume [PERFUME] Allergy (Intermediate, Verified 01/26/23 09:10) TRIGGERS ASTHMA prednisone Allergy (Intermediate, Verified 01/26/23 09:10) swelling Medication List - Last Reconciled 01/26/23 by AUSTIN Gil albuterol sulfate 90 mcg/actuation 2 inhalations inhalation Q4-6H PRN albuterol sulfate 2.5 mg (3 mL) inhalation Q4H PRN 30 days azelastine 2 sprays intranasal BID 30 days cholecalciferol (vitamin D3) 50 mcg PO DAILY 90 days citalopram 40 mg PO DAILY clonazepam 1 mg PO BID PRN commode As directed fluticasone propionate 50 mcg/actuation (Flonase Allergy Relief) 1 spray intranasal DAILY 30 days hydrochlorothiazide 25 mg PO QAM meclizine 25 mg PO TID PRN 7 days meloxicam 15 mg PO DAILY montelukast 10 mg PO DAILY nebulizers (AeroEclipse II Nebulizer) As directed pantoprazole 40 mg PO DAILY 90 days pregabalin 150 mg PO BID 30 days pseudoephedrine HCl ER 120 mg PO Q12H 30 days roflumilast (Daliresp) 500 mcg PO DAILY 30 days Shower Chair As directed Spiriva Respimat 2.5 mcg/actuation (tiotropium bromide) 2 puffs PO DAILY NS Symbicort 160-4.5 mcg/actuation (budesonide-formoterol) 2 puffs inhalation BID 30 days NS tramadol 50 mg PO Q6H PRN walker As directed zolpidem 10 mg PO BEDTIME PRN Tobacco use date assessed: 01/26/23 Dental Screening Dental Screen Date: 01/26/23 Did you have a dental visit in the last 12 months?: Yes Did you have a dental problem in the last 6 months where you did not have access to dental care?: No Was dental information given to patient?: Patient has dentist HPI HPI Comments History of Present Illness Details 42-year-old female past medical history significant for asthma, mild AIRAM, depression, generalized anxiety disorder, fibromyalgia, GERD, chronic idiopathic constipation. Patient presents today for emergency room follow-up from [facility] for chest pain labs unremarkable, troponin negative, chest x-ray unremarkable. Patient reports the gave her ASA, elevated blood pressure. ER from 11pm-7am was evaluated by However she did not get the results of her testing she left. Patient reports she does continue intermittent chest pain/pressure that comes and goes when her blood pressure becomes elevated. Patient admits she does not take her hydrochlorothiazide daily that she only takes when her blood pressure goes too high. States that her blood pressure making very elevated the other day so she took 2 of her hydrochlorothiazide. Patient educated with staff interpreter she needs to be compliant with her hydrochlorothiazide daily to prevent elevated blood pressures that have resulted in her having chest pain. Patient denies CP at this time. Patient denies any shortness of, palpitations and syncope. Patient does report that her left foot gave out the other day and she suffered a fall hitting her right cheek. Left foot and facial bone x-ray ordered to rule out acute injury, CBC and BMP ordered as well as EKG. [facility] Medical History (Updated 01/26/23 @ 09:46 by AUSTIN Gil) Hypertension Left foot pain Chronic cough Right elbow pain Morbid obesity Generalized anxiety disorder Asthma Hypovitaminosis D Mild recurrent major depression Pleuritic chest pain COVID-19 Breast pain, left Sinusitis Low back pain Polyarthralgia Ophthalmoplegic migraine Menieres disease Frequent falls Skin lesion RBBB (right bundle branch block) Leg edema Breast mass, right Left elbow pain Fibromyalgia Ankle pain, right Labial lesion Rectal bleeding H. pylori duodenitis Submandibular lymphadenopathy Chronic neck pain AIRAM (obstructive sleep apnea) Panic attacks Surgical History History of endoscopy History of colonoscopy History of cholecystectomy History of hysterectomy History of tubal ligation History of section History of carpal tunnel surgery of right wrist Family History Father Oral cancer Thyroid cancer Colon cancer Mother NIDDY (non-insulin dependent diabetes mellitus in young) Gastric ulcer Paternal Grandfather Colon cancer Paternal Uncle Colon cancer Other Family history of colon cancer in father Social History Housing: House Are you a primary senior care assistant to a significant other at home: No Alcohol intake: never Patient Tobacco Use Status: Never used Tobacco e-Cigarette/Vaping Use: Never Used Second Hand Smoke Exposure: No service: No Current occupational status: disabled Sexual orientation: Straight/Heterosexual Gender identity: Female Cognitive needs: Yes Hearing needs: No Vision needs: No Questionnaire Thrive Questionnaire Date Thrive assessed: 09/25/22 LALIT-7 AMB Questionnaire LALIT-7 Date LALIT - 7 assessed: 09/25/22 Source: Developed by Drs. Juarez Westfall, Suzie Delarosa, Cornelius Brown and colleagues, with an educational nella from [employer]. Review of Systems Const Denies chills, Denies fatigue, Denies fever(s) and Denies poor appetite Eyes Denies no additional complaints ENT Reports Normal hearing present Card Denies chest pain, Denies syncope, Denies rapid heart rate and Denies dyspnea Resp Denies cough and Denies dyspnea GI Denies change in stool character, Denies constipation, Denies diarrhea, Denies nausea and Denies vomiting Denies urinary frequency, Denies dysuria and Denies urinary urgency Neuro Reports Normal hearing present, Denies confusion and Denies syncope Psych Denies confusion Endo Denies fatigue Physical exam (Primary Care) Vital Signs: Last Vital Signs Pulse 66 01/26/23 08:50 BP 142/80 H 01/26/23 08:50 Pulse Ox 100 01/26/23 08:50 Oxygen Delivery Method Room Air 01/26/23 08:50 BMI result Body Mass Index 44.9 Tobacco/Smoking Status: Tobacco use Status Tobacco use date assessed 01/26/23 01/26/23 08:50 Patient Tobacco Use Status Never used Tobacco 01/26/23 08:50 e-Cigarette/Vaping Use Never Used 01/26/23 08:50 Thrive Assessment: Date of Thrive Assessment Date Thrive assessed 09/25/22 01/26/23 08:50 Const General: No confusion Orientation/consciousness: No confusion Neuro General: No confusion Cranial nerves: Yes Normal hearing present Office Procedures Flu Questionnaire Does the patient have a severe egg allergy?: No Does the patient have severe life threatening allergies?: No Does the patient have a fever or illness today?: No Has the patient ever had Guillain-Vened[place] Syndrome?: No Has the patient ever had any past reaction to a flu shot?: No Immunizations flu vacc [id number] 6mos up(PF) 60 mcg(15 mcgx4)/0.5 mL IM syringe Performing Provider: AUSTIN Gil Performing Location: [facility] Administered by: ISIS Olivares on 01/26/23 09:15 Dose Route Admin Location Dispensed Lot Number Expiration Date NDC Application Developer 0.5 mL IM Left Deltoid 0.5 mL [id number] 10/03/23 88014-612-80 [employer] VIS Given Date VIS Provided VIS Publication Date 01/26/23 Single Vaccine 20 Eligibility Eligibility Date Funding Source Not [facility] Eligible 01/26/23 Private Assessment and Plan Assessment & Plan (1) Chest pain: Code(s): R07.9 - Chest pain, unspecified Plan: EKG ordered to further evaluate, as I do not see this and ER report. Signs and symptoms reviewed with patient when to seek emergency medical attention. (2) Left foot pain: Code(s): M79.672 - Pain in left foot Plan: Left foot x-ray ordered Patient requesting a refill her tramadol, refill sent. (3) Right-sided face pain: Code(s): R51.9 - Headache, unspecified Plan: Patient bone x-ray ordered to rule out acute injury. No open areas noted to right cheek however patient does have faint ecchymosis noted (4) Frequent falls: Code(s): R29.6 - Repeated falls (5) Hypertension: Code(s): I10 - Essential (primary) hypertension Plan: Patient educated with staff interpreter and the importance of being compliant with her hydrochlorothiazide daily to prevent elevated blood pressures. Patient verbalizes understanding states she will take her medication daily as prescribed. Follow low-salt diet and exercise. Plan Keep scheduled physical exam in 2 weeks Orders: Orders Influenza [id number] Immunization Today Z23 - Encounter for immunization XR foot LT 2V Today M79.672 - Pain in left foot ECG 12 lead EKG Today R07.9 - Chest pain, unspecified Comprehensive Met. Panel Today R07.9 - Chest pain, unspecified Complete Blood Count Auto Diff Today Z13.0 - Encounter for screening for diseases of the blood and blood-forming organs and certain disorders involving the immune mechanism XR facial bones <3V Today R51.9 - Headache, unspecified Medications: Refilled tramadol 50 mg PO Q6H PRN 20 tabs 0RF pain Coding Level of Care Code Est Pt Level 4 (45808) Diagnoses Chest pain R07.9 Left foot pain M79.672 Right-sided face pain R51.9 Frequent falls R29.6 Hypertension I10
[2023-01-26 08:50] VITALS: BP 142/80; PULSE 66; O2SAT 100; BMI 44.9
== END 2023-01-26 09:34 | disposition home or self-care (01) ==
PROVIDERS: PCP Internal Medicine; Visit Provider Nurse Practitioner Family
DX: R07.9 Chest pain, unspecified (principal); M79.672 Pain in left foot; R51.9 Headache, unspecified; R29.6 Repeated falls; I10 Essential (primary) hypertension; Z23 Encounter for immunization; F41.1 Generalized anxiety disorder
CPT/HCPCS: 90471; 90686; 99214

== ENCOUNTER 2023-02-11 09:48 | Outpatient (AMB) | payer OTHER, SELFPAY ==
--- NOTE | 2023-02-11 09:53 | MHC.OFFVIS ---
Intake Vital Signs 02/11/23 09:54 Height 5 ft 6 in Weight 262 lb BMI 42.3 Pulse 79 Pulse Source Pulse Oximeter Pulse Oximetry (%) 99 Oxygen Delivery Method Room Air Intake Visit Reasons: Shortness of Breath Certified Flex Endoscope Reprocessor Required: No Allergies Iodinated Contrast Media [IV CONTRAST] Allergy (Severe, Verified 02/11/23 09:55) ANAPHYLAXIS cyclobenzaprine [From FLEXERIL] Allergy (Intermediate, Verified 02/11/23 09:55) NUMBNESS gadobutrol [From GADAVIST] Allergy (Intermediate, Verified 02/11/23 09:55) DIFFICULTY BREATHING perfume [PERFUME] Allergy (Intermediate, Verified 02/11/23 09:55) TRIGGERS ASTHMA prednisone Allergy (Intermediate, Verified 02/11/23 09:55) swelling HPI HPI Comments History of Present Illness Details The patient is a 42 year old woman with a known history of severe persistent asthma. She had been on Advair both the Diskus in the HFA but resulted in adverse side effects. She can no longer uses medicines. A distant Symbicort and she did start using the medicine but has not been filled at the pharmacy as of yet. She is also using Spiriva. For the last month and have her respiratory status has been getting worse. She has had to go to urgent care and also to the ER twice. She was placed on prednisone twice. She has no better. She still having exacerbations of the breathing specially at nighttime. She has severe spells resulting in nausea and dry heaves. She is very concerned for the fact that she is not getting any better. She also complains of significant postnasal drip that is aggravating her symptoms. She is not sure of his allergy related or cold related. She has not had any blood work or x-rays recently. She did have a sleep study although very limited because it had only recorded a small amount of information. She states that she still has daytime drowsiness. She feels that she has significant snoring. And she does get tired during the daytime with an elevated [place] score of 12/24. We did do allergy testing but she will only tested positive for mild allergy to cockroaches the rest of the rest study was negative and her eosinophils were normal. Therefore she doesn't qualify for biologics. In the meantime she continues to have daytime drowsiness. She did have a sleep study done demonstrating severe sleep apnea. At this point based on her symptoms the patient needs to start CPAP therapy RODERICK. Arrangements will be made with local [email or web address] company to start CPAP therapy at this time. 05/21/2022 the patient is here for a pulmonary follow-up visit. She was doing well until 2 days ago when she started developing worsening cough. At some point her coughing was so significant that she lost her balance and she fell and hurt her right elbow. She definitely at [facility] approve it. The patient has been using her inhalers only with partial resolution of the symptoms. She feels like she is getting a cold and a respiratory illness. In the meantime she does continue to use her CPAP every night. The CPAP therapy continues to be affecting beneficial. She has been using her respiratory medications as prescribed. She was supposed to be on Daliresp for some reason is no longer on her list of medications. Therefore I will responded to the pharmacy. I am hopeful that with the Daliresp we can prevent prednisone for the patient and decrease her exacerbations. 08/11/2022 the patient is here for pulmonary follow-up visit. The patient just recently got back from [place]. When she was there she was sick likely with viral syndrome. She was evaluated urgent care was given prednisone and also course of antibiotics. The patient does have significant cough variant asthma. She has been on a very aggressive regimen including Daliresp in addition to Symbicort and Spiriva. For her cough she does respond well to the Bentson I's and also cough syrup. Will provide her other medications she continues stable. Unfortunately they just get a diagnosis of cancer and her nephew of 3 years old. This caused significant stress and has caused her respiratory symptoms to worsen. Will continue to manage her symptoms. In the meantime she also complains of a pleuritic type of discomfort primarily in the the right lung on the back area specially with taking deep breath. Will go and repeat a chest x-ray to make sure. She will also request allergy testing done to be done again in order to see if she is a candidate for biologic therapy in order to improve her respiratory capacity and asthma treatment. The patient continues use her CPAP every night. CPAP therapy has been affecting beneficial. She does use it for more than 4 hours a night. She has been getting supplies readily. 11/06/2022 the patient is here for a pulmonary follow-up visit. She continues to struggle with productive cough and chronic bronchitis. She is on optimize respiratory therapy at this time. We did blood work assessing her for potential biologics that the patient does not qualify as she does have a new and eosinophil count and normal IgE level. Therefore, will go ahead and start her on azithromycin for chronic bronchitis. She can take that 3 times a week. The patient is also having issues with sinus congestion and chronic sinusitis. She has tolerated Sudafed in the past. We also talked about Neti pot a rinsing as lungs is with distilled water. In 4 2-4 weeks she can try using budesonide to help her with the inflammatory disease. 02/11/2023 the patient is here for pulmonary follow-up visit. The patient has been having a very difficult time of the month of January. Had significant chest tightness cough and wheezing. She did not want to go to the ER. Although around mid January her symptoms got worse with chest discomfort and she called the ambulance with a took her to [facility] because of the chest pain and the possibility of acute coronary syndrome. When she was there she did have blood work done which was all normal and she had an x-ray that was normal and she waited. However, after several hours awaiting she left against medical advice. She still struggling with a cough. Still productive in nature. She has been using her nebulizer frequently. Will go ahead and treat her for subacute bronchitis. If the patient is no better she can always call for further recommendations. [facility] Medical History (Updated 02/11/23 @ 13:05 by Bryan Sheehan MD) Hypertension Left foot pain Chronic cough Right elbow pain Morbid obesity Generalized anxiety disorder Asthma Hypovitaminosis D Mild recurrent major depression Pleuritic chest pain COVID-19 Breast pain, left Sinusitis Low back pain Polyarthralgia Ophthalmoplegic migraine Menieres disease Frequent falls Skin lesion RBBB (right bundle branch block) Leg edema Breast mass, right Left elbow pain Fibromyalgia Ankle pain, right Labial lesion Rectal bleeding H. pylori duodenitis Submandibular lymphadenopathy Chronic neck pain AIRAM (obstructive sleep apnea) Panic attacks Surgical History History of endoscopy History of colonoscopy History of cholecystectomy History of hysterectomy History of tubal ligation History of section History of carpal tunnel surgery of right wrist Family History Father Oral cancer Thyroid cancer Colon cancer Mother NIDDY (non-insulin dependent diabetes mellitus in young) Gastric ulcer Paternal Grandfather Colon cancer Paternal Uncle Colon cancer Other Family history of colon cancer in father Social History Housing: House Are you a primary care transition mgr to a significant other at home: No Alcohol intake: never Patient Tobacco Use Status: Never used Tobacco e-Cigarette/Vaping Use: Never Used Second Hand Smoke Exposure: No service: No Current occupational status: disabled Sexual orientation: Straight/Heterosexual Gender identity: Female Cognitive needs: Yes Hearing needs: No Vision needs: No Review of Systems Const Denies chills, Denies fever(s) and Denies night sweats ENT Denies change in voice, Denies mouth pain, Reports nasal congestion, Reports nasal discharge, Denies sinus pain, Denies sinus pressure and Denies tongue swelling Card Denies chest pain, Denies dyspnea and Reports dyspnea on exertion Resp Reports change in phlegm color, Reports chest congestion, Reports cough, Reports pain on inspiration, Reports pain with cough, Denies dyspnea, Reports dyspnea on exertion and Reports wheezing GI Denies abdominal pain Musc Denies no additional complaints Neuro Denies Neuro-related abnormal movements Psych Denies no additional complaints Jacob/Lymph Denies easy bleeding and Denies lymphadenopathy Aller/Immun Denies tongue swelling and Reports wheezing Physical Exam Vital Signs: Last Vital Signs Pulse 79 02/11/23 09:54 Pulse Ox 99 02/11/23 09:54 Oxygen Delivery Method Room Air 02/11/23 09:54 BMI result Body Mass Index 42.3 Const General: alert and awake Orientation/consciousness: patient oriented x3 HEENT Head: Yes normal to inspection Face and sinus: Yes sinuses nontender Mouth: oropharynx normal Throat: Yes posterior oropharynx normal Eyes General: appearance normal, both eyes and all related structures Neck Neck: Yes normal visual inspection, Yes no lymphadenopathy, Yes trachea midline and Yes no JVD Chest Chest palpation & inspection: normal inspection of the chest, normal palpation of entire chest wall and no tenderness Resp Effort & Inspection: normal respiratory effort, no cough and prolonged expiratory phase Auscultation: wheezes and diminished lung sounds Cardio Palpation: normal PMI Rate: regular rate Rhythm: regular rhythm Heart sounds: no gallops and no murmurs GI Palpation (GI): Soft to palpation, nontender, No hepatosplenomegaly present, no masses and Other GI palpation findings present (Abdomen is obese and protuberant) Auscultation: normal bowel sounds Skin General skin exam: no rashes or lesions noted Neuro General: patient oriented x3 and no focal motor deficits Cranial nerves: Yes CN's II-XII intact bilaterally Extrem General: Yes normal to inspection, Yes no clubbing, cyanosis or edema and Yes no calf tenderness Psych Speech and movement: Normal speech and movement present Affect: Anxious affect present Assessment & Plan Assessment & Plan (1) Asthma: Code(s): J45.909 - Unspecified asthma, uncomplicated Qualifiers: Asthma complication type: with acute exacerbation Asthma persistence: persistent Asthma severity: severe Qualified Code(s): J45.51 - Severe persistent asthma with (acute) exacerbation (2) AIRAM (obstructive sleep apnea): Comment: (mild AIRAM, AHI 10.1 on 08/22/17 sleep study) Code(s): G47.33 - Obstructive sleep apnea (adult) (pediatric) (3) Cough: Code(s): R05.9 - Cough, unspecified Qualifiers: Cough type: chronic Qualified Code(s): R05.3 - Chronic cough (4) Chronic allergic rhinitis: Code(s): J30.9 - Allergic rhinitis, unspecified (5) Chronic cough: Code(s): R05.3 - Chronic cough Plan continue symbicort continue spiriva Doxycycline x 10 days Medrol pack cough medicine continue nebulizer therapy cough medine: Tessalon peartimothy, cough syrup not a candidate for biologic therapy continue CPAP therapy CXR F/U 3-4 months Medications: New doxycycline hyclate 100 mg PO BID 10 days 20 caps 0RF methylprednisolone (Medrol (Francis)) PO PER PKG DIR 6 days 21 ea 0RF benzonatate 200 mg PO BID 30 days PRN 60 caps 0RF cough albuterol sulfate 90 mcg/actuation 2 inhalations inhalation Q6H 30 days PRN 18 grams 12RF shortness of breath or wheezing J44.9 - Chronic obstructive pulmonary disease, unspecified, J45.909 - Unspecified asthma, uncomplicated codeine-guaifenesin 10-100 mg/5 mL 10 mL PO Q6H 10 days PRN 300 mL 0RF cough Coding Level of Care Code Est Pt Level 4 (49289) Diagnoses Severe persistent asthma with acute exacerbation J45.51 Asthma complication type: with acute exacerbation Asthma persistence: persistent Asthma severity: severe AIRAM (obstructive sleep apnea) G47.33 Chronic cough R05.3 Cough type: chronic Chronic allergic rhinitis J30.9 Chronic cough R05.3 Time Spent (min) 17
[2023-02-11 09:54] VITALS: PULSE 79; O2SAT 99; BMI 42.3
== END 2023-02-11 10:18 | disposition home or self-care (01) ==
PROVIDERS: PCP Internal Medicine; Visit Provider Hospitalist
DX: J45.51 Severe persistent asthma with (acute) exacerbation (principal); G47.33 Obstructive sleep apnea (adult) (pediatric); R05.3 Chronic cough; J30.9 Allergic rhinitis, unspecified
CPT/HCPCS: 99214

== ENCOUNTER → 2023-02-11 09:48 | Outpatient (BNVA) | payer OTHER, SELFPAY | PROVIDERS: PCP Internal Medicine; Visit Provider Hospitalist | DX: J45.51 Severe persistent asthma with (acute) exacerbation (principal); J30.9 Allergic rhinitis, unspecified; G47.33 Obstructive sleep apnea (adult) (pediatric); R05.3 Chronic cough | CPT/HCPCS: 99212 ==

== ENCOUNTER 2023-03-08 07:22 | Outpatient (AMB) | payer OTHER, SELFPAY ==
[2023-03-08 07:24] VITALS: BP 134/80; PULSE 74; O2SAT 97; BMI 46.0
--- NOTE | 2023-03-08 07:24 | A.OFFPC_ITS ---
Vital Signs 03/08/23 07:24 Height 5 ft 6 in Weight 285 lb BMI 46.0 BP 134/80 Blood Pressure Location Lt brachial Position Sitting Pulse 74 Pulse Source Pulse Oximeter Pulse Oximetry (%) 97 Oxygen Delivery Method Room Air Intake Visit Reasons: PE Fish Inspector Required: Yes Fish Inspector Name: [id number] Tashia Information Interpreted: non-clinical & clinical Allergies Iodinated Contrast Media [IV CONTRAST] Allergy (Severe, Verified 03/08/23 07:40) ANAPHYLAXIS cyclobenzaprine [From FLEXERIL] Allergy (Intermediate, Verified 03/08/23 07:40) NUMBNESS gadobutrol [From GADAVIST] Allergy (Intermediate, Verified 03/08/23 07:40) DIFFICULTY BREATHING perfume [PERFUME] Allergy (Intermediate, Verified 03/08/23 07:40) TRIGGERS ASTHMA prednisone Allergy (Intermediate, Verified 03/08/23 07:40) swelling Medication List - Last Reconciled 03/08/23 by AUSTIN Gil albuterol sulfate 2.5 mg (3 mL) inhalation Q4H PRN 30 days albuterol sulfate 90 mcg/actuation 2 inhalations inhalation Q6H PRN 30 days azelastine 2 sprays intranasal BID 30 days benzonatate 200 mg PO BID PRN 30 days cholecalciferol (vitamin D3) 50 mcg PO DAILY 90 days citalopram 40 mg PO DAILY clonazepam 1 mg PO BID PRN commode As directed fluticasone propionate 50 mcg/actuation (Flonase Allergy Relief) 1 spray intranasal DAILY 30 days hydrochlorothiazide 25 mg PO QAM meclizine 25 mg PO TID PRN 7 days meloxicam 15 mg PO DAILY montelukast 10 mg PO DAILY nabumetone 500 mg PO BID nebulizers (AeroEclipse II Nebulizer) As directed pantoprazole 40 mg PO DAILY 90 days pregabalin 150 mg PO BID 30 days pseudoephedrine HCl ER (12 Hour Decongestant ER) 120 mg PO Q12H roflumilast 500 mcg PO DAILY Shower Chair As directed Spiriva Respimat 2.5 mcg/actuation (tiotropium bromide) 2 puffs PO DAILY NS Symbicort 160-4.5 mcg/actuation (budesonide-formoterol) 2 puffs inhalation BID 30 days NS tizanidine mg PO tramadol 50 mg PO Q6H PRN walker As directed zolpidem 10 mg PO BEDTIME PRN Tobacco use date assessed: 01/26/23 Dental Screening Dental Screen Date: 03/08/23 Did you have a dental visit in the last 12 months?: Yes Did you have a dental problem in the last 6 months where you did not have access to dental care?: No Was dental information given to patient?: Patient has dentist HPI HPI Comments History of Present Illness Details 42-year-old female past medical history significant for asthma, mild AIRAM, depression, generalized anxiety disorder, fibromyalgia, GERD, chronic idiopathic constipation. Patient presents today for physical exam. Patient continues to follow with orthopedic for hand and ankle pain. Patient reports following with rheumatology for fibromylgia and has an upcoming appointment for second opinion. mammogram: 12/14/22: Benign Pap smear: Follow with OBGYN in [place]. eye exam: 2 years ago. [facility] Medical History Hypertension Left foot pain Chronic cough Right elbow pain Morbid obesity Generalized anxiety disorder Asthma Hypovitaminosis D Mild recurrent major depression Pleuritic chest pain COVID-19 Breast pain, left Sinusitis Low back pain Polyarthralgia Ophthalmoplegic migraine Menieres disease Frequent falls Skin lesion RBBB (right bundle branch block) Leg edema Breast mass, right Left elbow pain Fibromyalgia Ankle pain, right Labial lesion Rectal bleeding H. pylori duodenitis Submandibular lymphadenopathy Chronic neck pain AIRAM (obstructive sleep apnea) Panic attacks Surgical History History of endoscopy History of colonoscopy History of cholecystectomy History of hysterectomy History of tubal ligation History of section History of carpal tunnel surgery of right wrist Family History Father Oral cancer Thyroid cancer Colon cancer Mother NIDDY (non-insulin dependent diabetes mellitus in young) Gastric ulcer Paternal Grandfather Colon cancer Paternal Uncle Colon cancer Other Family history of colon cancer in father Social History Housing: House Are you a primary childcare center administrator to a significant other at home: No Alcohol intake: never Patient Tobacco Use Status: Never used Tobacco e-Cigarette/Vaping Use: Never Used Second Hand Smoke Exposure: No service: No Current occupational status: disabled Sexual orientation: Straight/Heterosexual Gender identity: Female Cognitive needs: Yes Hearing needs: No Vision needs: No Questionnaire PHQ-9 Over the last 2 weeks, how often have you been bothered by any of the following problems? 1. Little interest or pleasure in doing things: not at all 2. Feeling down, depressed, or hopeless: more than half the days 3. Trouble falling or staying asleep, or sleeping too much: not at all 4. Feeling tired or having little energy: not at all 5. Poor appetite or overeating: not at all 6. Feeling bad about yourself - or that you are a failure or have let yourself or your family down: not at all 7. Trouble concentrating on things, such as reading the newspaper or watching television: not at all 8. Moving or speaking so slowly that other people could have noticed. Or the opposite - being so fidgety or restless that you have been moving around a lot more than usual: not at all 9. Thoughts that you would be better off or of hurting yourself in some way: not at all Total score: 2 Depression Screening Interpretation: Negative Depression Screening Done: Yes [id number] - PHQ-9 Billing: Yes Source: Developed by Drs. Juarez Westfall, Cornelius Calero and colleagues, with an educational nella from [employer]. Thrive Questionnaire Date Thrive assessed: 09/25/22 AUDIT C Alcohol Use Questionnaire (AUDIT-C) 1. How often do you have a drink containing alcohol?: Never 3. How often do you have six or more drinks on one occasion?: Never Total Score: 0 Score Reviewed/Action Taken: Yes LALIT-7 AMB Questionnaire LALIT-7 Date LALIT - 7 assessed: 09/25/22 Source: Developed by Drs. Juarez Westfall, Cornelius Calero and colleagues, with an educational nella from [employer]. Review of Systems Const Denies chills, Denies fatigue, Denies fever(s) and Denies poor appetite Eyes Denies no additional complaints ENT Reports Normal hearing present Card Denies chest pain, Denies syncope, Denies rapid heart rate and Denies dyspnea Resp Denies cough and Denies dyspnea GI Denies change in stool character, Denies constipation, Denies diarrhea, Denies nausea and Denies vomiting Denies urinary frequency, Denies dysuria and Denies urinary urgency Neuro Reports Normal hearing present, Denies confusion and Denies syncope Psych Denies confusion Endo Denies fatigue Physical exam (Primary Care) Vital Signs: Last Vital Signs Pulse 74 03/08/23 07:24 BP 134/80 03/08/23 07:24 Pulse Ox 97 03/08/23 07:24 Oxygen Delivery Method Room Air 03/08/23 07:24 BMI result Body Mass Index 46.0 Tobacco/Smoking Status: Tobacco use Status Tobacco use date assessed 01/26/23 03/08/23 07:34 Patient Tobacco Use Status Never used Tobacco 03/08/23 07:34 e-Cigarette/Vaping Use Never Used 03/08/23 07:34 PHQ-9: PHQ-9 Score PHQ-9: Total score 2 03/08/23 07:34 Depression Screening Interpretation: Negative Thrive Assessment: Date of Thrive Assessment Date Thrive assessed 09/25/22 03/08/23 07:34 Const General: No confusion Orientation/consciousness: No confusion HENMT Head: Yes normocephalic and Yes atraumatic Ears: external ears normal and TM's normal bilaterally General nose exam: Normal external nose present and Normal nasal mucous membranes and turbinates present Face and sinus: Yes normal facial exam and Yes sinuses nontender Mouth: moist mucous membranes Throat: Yes tonsils normal Eyes Conjunctivae: conjunctivae normal Sclerae: sclerae normal Pupils: Equal, round and reactive pupils present and Pupils normal by confrontation EOM: EOMs intact bilaterally Direct Ophthalmoscopy: normal light reflex Neck Neck: Yes no lymphadenopathy and Yes supple Thyroid: Thyroid normal Chest Chest palpation & inspection: normal inspection of the chest Resp Effort & Inspection: normal respiratory effort Auscultation: clear to auscultation bilaterally, no crackles, no rhonchi and no wheezes Cardio Rate: regular rate Rhythm: regular rhythm Peripheral pulses: radial pulses present and dorsalis pedis present GI Inspection: Yes normal to inspection Palpation (GI): Soft to palpation, nontender and No hepatosplenomegaly present Auscultation: normoactive bowel sounds Skin General skin exam: no rashes or lesions noted Neuro General: No confusion Cranial nerves: Yes Equal, round and reactive pupils present and Yes Normal hearing present Cognition (Neuro): normal cognition Gait exam (Neuro): Normal gait present Motor exam (neuro): 5/5 motor strength present throughout Deep tendon reflexes (DTR's): Right brachioradialis reflex intensity grade: 2+, Left brachioradialis reflex intensity grade: 2+, Right patellar reflex intensity grade: 2+ and Left patellar reflex intensity grade: 2+ Extrem General: No edema Assessment and Plan Assessment & Plan (1) Hypertension: Code(s): I10 - Essential (primary) hypertension Plan: Cotninue on HCTZ. Follow low salt diet and excercise. B/p belwo goal in office today (2) AIRAM (obstructive sleep apnea): Comment: (mild AIRAM, AHI 10.1 on 08/22/17 sleep study) Code(s): G47.33 - Obstructive sleep apnea (adult) (pediatric) Plan: Continue on CPAP for greater than 4 hours and benefits from this. (3) Morbid obesity: Code(s): E66.01 - Morbid (severe) obesity due to excess calories Plan: Recommended diet and excercise to reduce BMI (4) Fibromyalgia: Code(s): M79.7 - Fibromyalgia Plan: Continue on lyrica. Continue to follow with rheumatology. (5) Physical exam, annual: Code(s): Z00.00 - Encounter for general adult medical examination without abnormal findings Plan: Follow up in 1 year Orders: Orders Lipid Panel Today Z13.220 - Encounter for screening for lipoid disorders Comprehensive [employer]. Panel Fast Today I10 - Essential (primary) hypertension Hemoglobin A1c Today R73.09 - Other abnormal glucose Coding Level of Care Code Est Pt Prev Care 40-64y(12656) Diagnoses Hypertension I10 AIRAM (obstructive sleep apnea) G47.33 Morbid obesity E66.01 Fibromyalgia M79.7 Physical exam, annual Z00.00
== END 2023-03-08 07:57 | disposition home or self-care (01) ==
PROVIDERS: PCP Internal Medicine; Visit Provider Nurse Practitioner Family
DX: Z00.00 Encounter for general adult medical examination without abnormal findings (principal); I10 Essential (primary) hypertension; G47.33 Obstructive sleep apnea (adult) (pediatric); M79.7 Fibromyalgia
CPT/HCPCS: 99396

== ENCOUNTER 2023-04-16 14:32 | Outpatient (AMB) | payer OTHER, SELFPAY ==
[2023-04-16 14:39] VITALS: BP 146/100; PULSE 96; O2SAT 98
--- NOTE | 2023-04-16 14:39 | A.OFFPC_ITS ---
Vital Signs 04/16/23 14:39 Height 5 ft 6 in BP 146/100 H Blood Pressure Location Lt brachial Position Sitting Pulse 96 Pulse Source Pulse Oximeter Pulse Oximetry (%) 98 Oxygen Delivery Method Room Air Intake Visit Reasons: left knee pain and swelling Sleep Medicine Physician Required: Yes Sleep Medicine Physician Name: [email or web address]([id number]) Information Interpreted: non-clinical & clinical [employer] Field Technician: Not Required per policy Accompanied by: Self / Same As Patient Allergies Iodinated Contrast Media [IV CONTRAST] Allergy (Severe, Verified 04/16/23 14:40) ANAPHYLAXIS cyclobenzaprine [From FLEXERIL] Allergy (Intermediate, Verified 04/16/23 14:40) NUMBNESS gadobutrol [From GADAVIST] Allergy (Intermediate, Verified 04/16/23 14:40) DIFFICULTY BREATHING perfume [PERFUME] Allergy (Intermediate, Verified 04/16/23 14:40) TRIGGERS ASTHMA prednisone Allergy (Intermediate, Verified 04/16/23 14:40) swelling Tobacco use date assessed: 04/16/23 Dental Screening Dental Screen Date: 04/16/23 Did you have a dental visit in the last 12 months?: Yes Did you have a dental problem in the last 6 months where you did not have access to dental care?: No Was dental information given to patient?: Patient has dentist HPI left knee pain and swelling HPI Details 43-year-old morbidly obese female with h ypertension obstructive sleep apnea fibromyalgia last seen for physical in March 2023. Patient is here for follow-up. Patient follows up with [facility] treatment center[facility]rheumatology for fibromyalgia review of the notes that Dr. Rodriguez does not take care of fibromyalgia.. Review of the notes has seen Pulmonary also diagnosis of asthma obstructive sleep apnea and allergies placed on Symbicort and Spiriva. interpret Nick [id number]. had a fall - knee pain leg swelling- 1 week L knee swelling. . noted 08/2022 xray knee has Deg arthritis and suprapatellar effusion. pain on the L knee. Tried to reconcile with the patient regarding her medication but she said she does not know her medication but discussed with her my concerns as the list has multiple medications that can affect the kidneys. Also was complaining about vertigo and dizziness and discussed again that a lot of the medication on her list can cause the dizziness itself. Discussed with her to talk to primary to go over reconcile medications. Meanwhile as for the knee will do an x-ray. There is no swelling of the left leg just pain and swelling on the left knee [facility] Medical History Hypertension Left foot pain Chronic cough Right elbow pain Morbid obesity Generalized anxiety disorder Asthma Hypovitaminosis D Mild recurrent major depression Pleuritic chest pain COVID-19 Breast pain, left Sinusitis Low back pain Polyarthralgia Ophthalmoplegic migraine Menieres disease Frequent falls Skin lesion RBBB (right bundle branch block) Leg edema Breast mass, right Left elbow pain Fibromyalgia Ankle pain, right Labial lesion Rectal bleeding H. pylori duodenitis Submandibular lymphadenopathy Chronic neck pain AIRAM (obstructive sleep apnea) Panic attacks Surgical History History of endoscopy History of colonoscopy History of cholecystectomy History of hysterectomy History of tubal ligation History of section History of carpal tunnel surgery of right wrist Family History Father Oral cancer Thyroid cancer Colon cancer Mother NIDDY (non-insulin dependent diabetes mellitus in young) Gastric ulcer Paternal Grandfather Colon cancer Paternal Uncle Colon cancer Other Family history of colon cancer in father Social History Housing: House Are you a primary customer care professional to a significant other at home: No Alcohol intake: never Patient Tobacco Use Status: Never used Tobacco e-Cigarette/Vaping Use: Never Used Second Hand Smoke Exposure: No service: No Current occupational status: disabled Sexual orientation: Straight/Heterosexual Gender identity: Female Cognitive needs: Yes Hearing needs: No Vision needs: No Questionnaire PHQ-9 Over the last 2 weeks, how often have you been bothered by any of the following problems? 1. Little interest or pleasure in doing things: not at all 2. Feeling down, depressed, or hopeless: more than half the days 3. Trouble falling or staying asleep, or sleeping too much: not at all 4. Feeling tired or having little energy: not at all 5. Poor appetite or overeating: not at all 6. Feeling bad about yourself - or that you are a failure or have let yourself or your family down: not at all 7. Trouble concentrating on things, such as reading the newspaper or watching television: not at all 8. Moving or speaking so slowly that other people could have noticed. Or the opposite - being so fidgety or restless that you have been moving around a lot more than usual: not at all 9. Thoughts that you would be better off or of hurting yourself in some way: not at all Total score: 2 Depression Screening Interpretation: Negative Depression Screening Done: Yes 32127 - PHQ-9 Billing: Yes Source: Developed by Drs. Juarez Westfall, Suzie Delarosa, Cornelius Brown and colleagues, with an educational nella from [employer] Thrive Questionnaire Date Thrive assessed: 04/16/23 I am a: Patient What is your living situation today?: I have a steady place to live Within the past 12 months, did the food you bought not last and you didn't have the money to get more?: Never true Within the past 12 months, did you worry whether your food would run out before you got money to buy more?: Never true Do you have trouble paying for medicines?: No Do you have trouble getting transportation to medical appointments?: No Do you have trouble paying your heating and electricity bill?: No Do you have trouble taking care of your child, family member or friend?: No Do you have trouble with day-to-day activities such as bathing, preparing meals, shopping, managing finances, etc.?: No Are you currently unemployed and looking for a job?: No Are you interested in more education?: No Please select the resources that you would like help with: None AUDIT C Alcohol Use Questionnaire (AUDIT-C) 1. How often do you have a drink containing alcohol?: Never 3. How often do you have six or more drinks on one occasion?: Never Total Score: 0 Score Reviewed/Action Taken: Yes LALIT-7 AMB Questionnaire LALIT-7 Date LALIT - 7 assessed: 04/16/23 Feeling nervous, anxious, or on edge: 0 = Not at all Not being able to stop or control worryin = Not at all Worrying too much about different things: 0 = Not at all Trouble relaxin = Not at all Being so restless that it is hard to sit still: 0 = Not at all Becoming easily annoyed or irritable: 0 = Not at all Feeling afraid as if something awful might happen: 0 = Not at all Total LALIT-7 score (0-4 normal; 5-9 mild; 10-14 moderate; 15-21 severe): 0 Source: Developed by Drs. Juarez Westfall, Suzie Delarosa, Cornelius Brown and colleagues, with an educational nella from [employer] Physical exam (Primary Care) Vital Signs: Last Vital Signs Pulse 96 04/16/23 14:39 BP 146/100 H 04/16/23 14:39 Pulse Ox 98 04/16/23 14:39 Oxygen Delivery Method Room Air 04/16/23 14:39 Next steps: Tender on the posterior knee area no swelling of the leg left Tobacco/Smoking Status: Tobacco use Status Tobacco use date assessed 04/16/23 04/16/23 14:41 Patient Tobacco Use Status Never used Tobacco 04/16/23 14:41 e-Cigarette/Vaping Use Never Used 04/16/23 14:41 PHQ-9: PHQ-9 Score PHQ-9: Total score 2 04/16/23 14:41 Depression Screening Interpretation: Negative Thrive Assessment: Date of Thrive Assessment Date Thrive assessed 04/16/23 04/16/23 14:41 Const General: alert; No acute distress Eyes Conjunctivae: conjunctivae normal Resp Auscultation: clear to auscultation bilaterally Cardio Rate: regular rate Rhythm: regular rhythm GI Inspection: Yes normal to inspection Extrem General: Yes normal to inspection and No edema Assessment and Plan Assessment & Plan (1) Hypertension: Code(s): I10 - Essential (primary) hypertension Plan: Continue with blood pressure medication. Decrease salt intake and exercise patient is taking hydrochlorothiazide (2) Asthma: Comment: (chronic persistent, severe bronchial asthma, with chronic rhinosinusitis) Code(s): J45.909 - Unspecified asthma, uncomplicated Plan: Continue with inhaler as needed (3) AIRAM (obstructive sleep apnea): Comment: (mild AIRAM, AHI 10.1 on 08/22/17 sleep study) Code(s): G47.33 - Obstructive sleep apnea (adult) (pediatric) Plan: state has the CPAP at night Q night (4) Generalized anxiety disorder: Comment: Code(s): F41.1 - Generalized anxiety disorder Plan: Continue with counseling and therapy (5) GERD (gastroesophageal reflux disease): Code(s): K21.9 - Gastro-esophageal reflux disease without esophagitis Qualifiers: Esophagitis presence: without esophagitis Qualified Code(s): K21.9 - Gastro-esophageal reflux disease without esophagitis Plan: Avoid the foods that causes that usually spicy foods, tomato products, juices, coffee, soda and foods that your sensitive to. After eating do not lie down, allow 3-4 hours before in lie down. And keep the head of bed above 30 degrees to avoid the acid from going up. (6) Left knee pain: Code(s): M25.562 - Pain in left knee Plan: from last xray 08/2022 had degenerative arthritis. xray requested with the fall Orders: Orders XR knee LT 2V Today M25.562 - Pain in left knee Coding Level of Care Code Est Pt Level 4 (17647) Diagnoses Hypertension I10 Asthma J45.909 AIRAM (obstructive sleep apnea) G47.33 Generalized anxiety disorder F41.1 Gastroesophageal reflux disease without esophagitis K21.9 Esophagitis presence: without esophagitis Left knee pain M25.562
== END 2023-04-16 15:51 | disposition home or self-care (01) ==
PROVIDERS: PCP Internal Medicine; Visit Provider Internal Medicine
DX: I10 Essential (primary) hypertension (principal); J45.909 Unspecified asthma, uncomplicated; G47.33 Obstructive sleep apnea (adult) (pediatric); F41.1 Generalized anxiety disorder; K21.9 Gastro-esophageal reflux disease without esophagitis; M25.562 Pain in left knee
CPT/HCPCS: 99214

== ENCOUNTER 2023-04-16 16:00 | Outpatient (REF) | payer OTHER, SELFPAY ==
--- NOTE | ~2023-04-16 | XR_ITS ---
EXAMINATION: XR KNEE, LEFT CLINICAL INFORMATION: Pain. COMPARISON: Radiographs dated 08/11/2022. TECHNIQUE: AP and lateral views of the left knee. FINDINGS: Bony alignment and mineralization are normal. The lateral, medial and patellofemoral joint space compartments are well-maintained. There is mild peripheral osteophyte formation of the medial and patellofemoral compartments. No fracture or dislocation is seen. There is a small joint effusion. No foreign body is seen. XR/XR knee LT 2V IMPRESSION: 1. No fracture, dislocation or joint effusion is seen. 2. There is mild osteoarthritic change of the medial and patellofemoral joint space compartments of the left knee.
--- NOTE | ~2023-04-16 | XR_ITS ---
EXAMINATION: XR FOOT, LEFT CLINICAL INFORMATION: Pain. COMPARISON: None available. TECHNIQUE: AP, lateral, and oblique views of the left foot. FINDINGS: Bony alignment and mineralization are normal. No fracture, dislocation or right ankle joint effusion is seen. Boehler's angle is normal. There are moderate posterior and plantar calcaneal spurs. There is dorsal spurring of the talonavicular joint. There is no abnormal bone erosion. No focal soft tissue swelling, gas or foreign body is seen. XR/XR foot LT 2V IMPRESSION: 1. No fracture, dislocation or right ankle joint effusion is seen. 2. There are moderate posterior and plantar calcaneal spurs. 3. There is mild degenerative change of the dorsal aspect of the talonavicular joint.
--- NOTE | ~2023-04-16 | XR_ITS ---
EXAMINATION: XR CHEST 2 VIEWS CLINICAL INFORMATION: Chronic cough. COMPARISON: Chest radiographs dated 11/25/2021. TECHNIQUE: Frontal and lateral views of the chest were obtained. FINDINGS: The heart, great vessels, pulmonary vasculature and mediastinum are normal. The lungs show no focal infiltrate, effusion or pneumothorax. There is no acute osseous abnormality. There is multi-level mild thoracic spondylosis. XR/XR chest 2V IMPRESSION: No active cardiopulmonary disease.
== END 2023-04-16 16:01 | disposition home or self-care (01) ==
LOC: HO.XRAY 16:00
PROVIDERS: PCP Internal Medicine; Visit Provider Internal Medicine
DX: M79.672 Pain in left foot (principal); M25.562 Pain in left knee; R05.3 Chronic cough
CPT/HCPCS: 71046; 73560; 73620

== ENCOUNTER 2023-04-19 15:26 | Outpatient (AMB) | payer OTHER, SELFPAY ==
[2023-04-19 15:30] VITALS: BP 132/78; PULSE 96; O2SAT 100; BMI 47.5
--- NOTE | 2023-04-19 15:30 | MHC.OFFVIS ---
Intake Vital Signs 04/19/23 15:30 Height 5 ft 6 in Weight 294 lb 5.074 oz BMI 47.5 BP 132/78 Blood Pressure Location Lt brachial Position Sitting Pulse 96 Pulse Source Pulse Oximeter Pulse Oximetry (%) 100 Oxygen Delivery Method Room Air Intake Visit Reasons: Asthma Allergies Iodinated Contrast Media [IV CONTRAST] Allergy (Severe, Verified 04/19/23 15:35) ANAPHYLAXIS cyclobenzaprine [From FLEXERIL] Allergy (Intermediate, Verified 04/19/23 15:35) NUMBNESS gadobutrol [From GADAVIST] Allergy (Intermediate, Verified 04/19/23 15:35) DIFFICULTY BREATHING perfume [PERFUME] Allergy (Intermediate, Verified 04/19/23 15:35) TRIGGERS ASTHMA prednisone Allergy (Intermediate, Verified 04/19/23 15:35) swelling HPI HPI Comments History of Present Illness Details The patient is a 43 year old woman with a known history of severe persistent asthma. She had been on Advair both the Diskus in the HFA but resulted in adverse side effects. She can no longer uses medicines. A distant Symbicort and she did start using the medicine but has not been filled at the pharmacy as of yet. She is also using Spiriva. For the last month and have her respiratory status has been getting worse. She has had to go to urgent care and also to the ER twice. She was placed on prednisone twice. She has no better. She still having exacerbations of the breathing specially at nighttime. She has severe spells resulting in nausea and dry heaves. She is very concerned for the fact that she is not getting any better. She also complains of significant postnasal drip that is aggravating her symptoms. She is not sure of his allergy related or cold related. She has not had any blood work or x-rays recently. She did have a sleep study although very limited because it had only recorded a small amount of information. She states that she still has daytime drowsiness. She feels that she has significant snoring. And she does get tired during the daytime with an elevated Rumford score of 12/24. We did do allergy testing but she will only tested positive for mild allergy to cockroaches the rest of the rest study was negative and her eosinophils were normal. Therefore she doesn't qualify for biologics. In the meantime she continues to have daytime drowsiness. She did have a sleep study done demonstrating severe sleep apnea. At this point based on her symptoms the patient needs to start CPAP therapy RODERICK. Arrangements will be made with local [employer] company to start CPAP therapy at this time. 05/21/2022 the patient is here for a pulmonary follow-up visit. She was doing well until 2 days ago when she started developing worsening cough. At some point her coughing was so significant that she lost her balance and she fell and hurt her right elbow. She definitely at [facility] approve it. The patient has been using her inhalers only with partial resolution of the symptoms. She feels like she is getting a cold and a respiratory illness. In the meantime she does continue to use her CPAP every night. The CPAP therapy continues to be affecting beneficial. She has been using her respiratory medications as prescribed. She was supposed to be on Daliresp for some reason is no longer on her list of medications. Therefore I will responded to the pharmacy. I am hopeful that with the Daliresp we can prevent prednisone for the patient and decrease her exacerbations. 08/11/2022 the patient is here for pulmonary follow-up visit. The patient just recently got back from [place]. When she was there she was sick likely with viral syndrome. She was evaluated urgent care was given prednisone and also course of antibiotics. The patient does have significant cough variant asthma. She has been on a very aggressive regimen including Daliresp in addition to Symbicort and Spiriva. For her cough she does respond well to the Bentson I's and also cough syrup. Will provide her other medications she continues stable. Unfortunately they just get a diagnosis of cancer and her nephew of 3 years old. This caused significant stress and has caused her respiratory symptoms to worsen. Will continue to manage her symptoms. In the meantime she also complains of a pleuritic type of discomfort primarily in the the right lung on the back area specially with taking deep breath. Will go and repeat a chest x-ray to make sure. She will also request allergy testing done to be done again in order to see if she is a candidate for biologic therapy in order to improve her respiratory capacity and asthma treatment. The patient continues use her CPAP every night. CPAP therapy has been affecting beneficial. She does use it for more than 4 hours a night. She has been getting supplies readily. 11/06/2022 the patient is here for a pulmonary follow-up visit. She continues to struggle with productive cough and chronic bronchitis. She is on optimize respiratory therapy at this time. We did blood work assessing her for potential biologics that the patient does not qualify as she does have a new and eosinophil count and normal IgE level. Therefore, will go ahead and start her on azithromycin for chronic bronchitis. She can take that 3 times a week. The patient is also having issues with sinus congestion and chronic sinusitis. She has tolerated Sudafed in the past. We also talked about Neti pot a rinsing as lungs is with distilled water. In 4 2-4 weeks she can try using budesonide to help her with the inflammatory disease. 02/11/2023 the patient is here for pulmonary follow-up visit. The patient has been having a very difficult time of the month of January. Had significant chest tightness cough and wheezing. She did not want to go to the ER. Although around mid January her symptoms got worse with chest discomfort and she called the ambulance with a took her to [facility] because of the chest pain and the possibility of acute coronary syndrome. When she was there she did have blood work done which was all normal and she had an x-ray that was normal and she waited. However, after several hours awaiting she left against medical advice. She still struggling with a cough. Still productive in nature. She has been using her nebulizer frequently. Will go ahead and treat her for subacute bronchitis. If the patient is no better she can always call for further recommendations. 04/19/2023 the patient is here for a pulmonary follow-up visit. She is having hard time with her asthma. She has been using the Symbicort and the Spiriva. Although she does not feel like it is helping her much. She recently had an upper respiratory illness in image resulted in some swelling in the throat area. She had a hard time swallowing also breathing. She has a little better although she still feels that area abnormal. In addition to that she had a fall and she hurt her knee. She has been limping. She did have an x-ray of her knee and will be seeing orthopedic soon. will go ahead and optimize her respiratory therapy. [facility] Medical History Hypertension Left foot pain Chronic cough Right elbow pain Morbid obesity Generalized anxiety disorder Asthma Hypovitaminosis D Mild recurrent major depression Pleuritic chest pain COVID-19 Breast pain, left Sinusitis Low back pain Polyarthralgia Ophthalmoplegic migraine Menieres disease Frequent falls Skin lesion RBBB (right bundle branch block) Leg edema Breast mass, right Left elbow pain Fibromyalgia Ankle pain, right Labial lesion Rectal bleeding H. pylori duodenitis Submandibular lymphadenopathy Chronic neck pain AIRAM (obstructive sleep apnea) Panic attacks Surgical History History of endoscopy History of colonoscopy History of cholecystectomy History of hysterectomy History of tubal ligation History of section History of carpal tunnel surgery of right wrist Family History Father Oral cancer Thyroid cancer Colon cancer Mother NIDDY (non-insulin dependent diabetes mellitus in young) Gastric ulcer Paternal Grandfather Colon cancer Paternal Uncle Colon cancer Other Family history of colon cancer in father Social History Housing: House Are you a primary chiropractic care to a significant other at home: No Alcohol intake: never Patient Tobacco Use Status: Never used Tobacco e-Cigarette/Vaping Use: Never Used Second Hand Smoke Exposure: No service: No Current occupational status: disabled Sexual orientation: Straight/Heterosexual Gender identity: Female Cognitive needs: Yes Hearing needs: No Vision needs: No Review of Systems Const Denies chills, Denies fever(s) and Denies night sweats ENT Denies change in voice, Denies mouth pain, Reports nasal congestion, Reports nasal discharge, Denies sinus pain, Denies sinus pressure and Denies tongue swelling Card Denies chest pain, Denies dyspnea and Reports dyspnea on exertion Resp Reports change in phlegm color, Reports chest congestion, Reports cough, Denies dyspnea, Reports dyspnea on exertion and Reports wheezing GI Denies abdominal pain Musc Reports as per HPI, Reports abnormal gait, Reports arthralgias and Reports joint swelling Neuro Denies Neuro-related abnormal movements and Reports abnormal gait Psych Denies no additional complaints Jacob/Lymph Denies easy bleeding and Denies lymphadenopathy Aller/Immun Denies tongue swelling and Reports wheezing Physical Exam Vital Signs: Last Vital Signs Pulse 96 04/19/23 15:30 BP 132/78 04/19/23 15:30 Pulse Ox 100 04/19/23 15:30 Oxygen Delivery Method Room Air 04/19/23 15:30 BMI result Body Mass Index 47.5 Const General: alert and awake Orientation/consciousness: patient oriented x3 HEENT Head: Yes normal to inspection Face and sinus: Yes sinuses nontender Mouth: oropharynx normal Throat: Yes posterior oropharynx normal Eyes General: appearance normal, both eyes and all related structures Neck Neck: Yes normal visual inspection, Yes no lymphadenopathy, Yes trachea midline and Yes no JVD Chest Chest palpation & inspection: normal inspection of the chest, normal palpation of entire chest wall and no tenderness Resp Effort & Inspection: normal respiratory effort, no cough and prolonged expiratory phase Auscultation: wheezes and diminished lung sounds Cardio Palpation: normal PMI Rate: regular rate Rhythm: regular rhythm Heart sounds: no gallops and no murmurs GI Palpation (GI): Soft to palpation, nontender, No hepatosplenomegaly present, no masses and Other GI palpation findings present (Abdomen is obese and protuberant) Auscultation: normal bowel sounds Skin General skin exam: no rashes or lesions noted Neuro General: patient oriented x3 and no focal motor deficits Cranial nerves: Yes CN's II-XII intact bilaterally Extrem General: Yes normal to inspection, Yes no clubbing, cyanosis or edema and Yes no calf tenderness Psych Speech and movement: Normal speech and movement present Affect: Anxious affect present Assessment & Plan Assessment & Plan (1) Asthma: Code(s): J45.909 - Unspecified asthma, uncomplicated Qualifiers: Asthma complication type: uncomplicated Asthma persistence: persistent Asthma severity: severe Qualified Code(s): J45.50 - Severe persistent asthma, uncomplicated (2) AIRAM (obstructive sleep apnea): Comment: (mild AIRAM, AHI 10.1 on 08/22/17 sleep study) Code(s): G47.33 - Obstructive sleep apnea (adult) (pediatric) (3) Cough: Code(s): R05.9 - Cough, unspecified Qualifiers: Cough type: chronic Qualified Code(s): R05.3 - Chronic cough (4) Chronic allergic rhinitis: Code(s): J30.9 - Allergic rhinitis, unspecified (5) Chronic cough: Code(s): R05.3 - Chronic cough Plan stop symbicort stop spiriva start Trelegy 200 daily start Zpack cough medicine continue nebulizer therapy cough medine: Tessalon peartimothy, cough syrup continue CPAP therapy CXR F/U 6 months Medications: New xktffjizbqq-zxkhmfqsk-upljzzon 200-62.5-25 mcg (Trelegy Ellipta) 1 inh inhalation DAILY 30 days 60 ea 12RF azithromycin 500 mg PO DAILY 5 days 5 tabs 0RF ibuprofen 600 mg PO Q8H 10 days PRN 30 tabs 0RF pain Coding Level of Care Code Est Pt Level 4 (46435) Diagnoses Severe persistent asthma without complication J45.50 Asthma complication type: uncomplicated Asthma persistence: persistent Asthma severity: severe AIRAM (obstructive sleep apnea) G47.33 Chronic cough R05.3 Cough type: chronic Chronic allergic rhinitis J30.9 Chronic cough R05.3 Time Spent (min) 17
== END 2023-04-19 15:59 | disposition home or self-care (01) ==
PROVIDERS: PCP Internal Medicine; Visit Provider Hospitalist
DX: J45.50 Severe persistent asthma, uncomplicated (principal); G47.33 Obstructive sleep apnea (adult) (pediatric); R05.3 Chronic cough; J30.9 Allergic rhinitis, unspecified
CPT/HCPCS: 99214

== ENCOUNTER → 2023-04-19 15:26 | Outpatient (BNVA) | payer OTHER, SELFPAY | PROVIDERS: PCP Internal Medicine; Visit Provider Hospitalist | DX: J45.50 Severe persistent asthma, uncomplicated (principal); G47.33 Obstructive sleep apnea (adult) (pediatric); R05.3 Chronic cough; J30.9 Allergic rhinitis, unspecified | CPT/HCPCS: 99212 ==

== ENCOUNTER 2023-04-28 12:39 | Outpatient (AMB) | payer OTHER, SELFPAY ==
[2023-04-28 12:42] VITALS: BMI 47.4
--- NOTE | 2023-04-28 12:42 | A.OFFVIS_ITS ---
Intake Vital Signs 04/28/23 12:42 Height 5 ft 6 in Weight 294 lb BMI 47.4 Intake Visit Reasons: Newprob- Pain in left knee Intake Note: Mona is a 43 year old female who presents with Left knee pain and swelling. Patient reports her knee pain is a 6 on the 1- 10 pain scale, she has fallen on her Left knee on 04/10/2023. The patient states that she did have 1 cortisone injection into her left knee 2 years ago. She got fairly good relief from that injection. She denies any locking or giving way. She has been seen at the [facility] where she was told that her symptoms are due to her fibromyalgia. She has taken Tylenol and anti-inflammatory medicines which gave her minimal relief. Communication Clerk Name: [id number] Allergies Iodinated Contrast Media [IV CONTRAST] Allergy (Severe, Verified 04/28/23 12:52) ANAPHYLAXIS cyclobenzaprine [From FLEXERIL] Allergy (Intermediate, Verified 04/28/23 12:52) NUMBNESS gadobutrol [From GADAVIST] Allergy (Intermediate, Verified 04/28/23 12:52) DIFFICULTY BREATHING perfume [PERFUME] Allergy (Intermediate, Verified 04/28/23 12:52) TRIGGERS ASTHMA prednisone Allergy (Intermediate, Verified 04/28/23 12:52) swelling Medication List - Last Reconciled 04/28/23 by Rosendo Scanlon MD albuterol sulfate 2.5 mg (3 mL) inhalation Q4H PRN 30 days albuterol sulfate 90 mcg/actuation 2 inhalations inhalation Q6H PRN 30 days azelastine 2 sprays intranasal BID 30 days azithromycin 500 mg PO DAILY 5 days benzonatate 200 mg PO BID PRN cholecalciferol (vitamin D3) 50 mcg PO DAILY 90 days citalopram 40 mg PO DAILY clonazepam 1 mg PO BID PRN commode As directed fluticasone propionate 50 mcg/actuation (Flonase Allergy Relief) 1 spray intranasal DAILY 30 days viycnrpypgc-jusvluxtf-qhbcgcjo 200-62.5-25 mcg (Trelegy Ellipta) 1 inh inhalation DAILY 30 days hydrochlorothiazide 25 mg PO QAM ibuprofen 600 mg PO Q8H PRN 10 days meclizine 25 mg PO TID PRN 7 days meloxicam 15 mg PO DAILY montelukast 10 mg PO DAILY nabumetone 500 mg PO BID nebulizers (AeroEclipse II Nebulizer) As directed pantoprazole 40 mg PO DAILY 90 days pregabalin 150 mg PO BID 30 days pseudoephedrine HCl ER (12 Hour Decongestant ER) 120 mg PO Q12H roflumilast 500 mcg PO DAILY Shower Chair As directed Symbicort 160-4.5 mcg/actuation (budesonide-formoterol) 2 puffs inhalation BID 30 days NS tiotropium bromide 2.5 mcg/actuation (Spiriva Respimat) 2 puffs PO DAILY tizanidine mg PO tramadol 50 mg PO Q6H PRN 30 days walker As directed zolpidem 10 mg PO BEDTIME PRN PFSH Medical History Hypertension Left foot pain Chronic cough Right elbow pain Morbid obesity Generalized anxiety disorder Asthma Hypovitaminosis D Mild recurrent major depression Pleuritic chest pain COVID-19 Breast pain, left Sinusitis Low back pain Polyarthralgia Ophthalmoplegic migraine Menieres disease Frequent falls Skin lesion RBBB (right bundle branch block) Leg edema Breast mass, right Left elbow pain Fibromyalgia Ankle pain, right Labial lesion Rectal bleeding H. pylori duodenitis Submandibular lymphadenopathy Chronic neck pain AIRAM (obstructive sleep apnea) Panic attacks Surgical History History of endoscopy History of colonoscopy History of cholecystectomy History of hysterectomy History of tubal ligation History of section History of carpal tunnel surgery of right wrist Family History Father Oral cancer Thyroid cancer Colon cancer Mother NIDDY (non-insulin dependent diabetes mellitus in young) Gastric ulcer Paternal Grandfather Colon cancer Paternal Uncle Colon cancer Other Family history of colon cancer in father Social History Housing: House Are you a primary post acute care nurse practitioner to a significant other at home: No Alcohol intake: never Patient Tobacco Use Status: Never used Tobacco e-Cigarette/Vaping Use: Never Used Second Hand Smoke Exposure: No service: No Current occupational status: disabled Sexual orientation: Straight/Heterosexual Gender identity: Female Cognitive needs: Yes Hearing needs: No Vision needs: No Physical Exam Vital Signs: BMI result Body Mass Index 47.4 Const Other: Well-nourished well-developed very friendly female awake alert and oriented x3 in no acute distress Extrem Other: Bilateral lower extremity examination shows good capillary refill, no skin lesions noted, normal sensation light touch Left knee examination shows a minimal effusion, mild crepitus with range of motion, negative Eddi's test, no instability Office Procedures Joint Injection/Drain Joint Injection/Drain Primary Site: left knee Prep: site was prepped using aseptic technique Injected: 40 mg of, DepoMedrol and 1% plain lidocaine Procedure: The patient tolerated the procedure well Coding 57536 - Large joint Procedure code (CPT) selection complete Results Reviewed Results Reviewed: X-rays of the patient's left knee show mild joint space narrowing most significant in the medial compartment, no acute bony abnormalities Assessment & Plan Assessment & Plan (1) Knee pain, left: Code(s): M25.562 - Pain in left knee Plan Ms. Trip Garland presents with left knee pain due to early degenerative joint disease. I had a lengthy discussion with the patient regarding the treatment options. The risks and benefits of a left knee cortisone injection were discussed at length with the patient. The patient wished to proceed. She tolerated the injection well. Activity modifications were discussed at length with the patient. She will follow up with me on an as-needed basis should her symptoms not plateau at an unacceptable level over the next few months. Feel free to call me at any time should questions regarding her orthopedic management arise. Thank you very much for asking me to see this very friendly patient. I spent 22 minutes in reviewing the patient's records and imaging studies, seeing the patient and documenting in the medical record. Orders: Orders AMB Joint Injection/Aspiration Today M25.562 - Pain in left knee Coding Level of Care Code Est Pt Level 2 (49003) Diagnoses Knee pain, left M25.562 CPT Codes Coding - 08674 Large joint: 00226 - Large joint ([id number])
== END 2023-04-28 13:17 | disposition home or self-care (01) ==
PROVIDERS: PCP Internal Medicine; Visit Provider Orthopaedic Surgery
DX: M25.562 Pain in left knee (principal)
CPT/HCPCS: 20610; 99213

== ENCOUNTER → 2023-04-28 12:39 | Outpatient (BNVA) | payer OTHER, SELFPAY | PROVIDERS: PCP Internal Medicine; Visit Provider Orthopaedic Surgery | DX: M25.562 Pain in left knee (principal) | CPT/HCPCS: 20610; 99212; J1020 ==

== ENCOUNTER 2023-05-19 15:25 | Outpatient (AMB) | payer OTHER, SELFPAY ==
[2023-05-19 15:31] VITALS: BP 136/82; BMI 43.9
--- NOTE | 2023-05-19 15:31 | MHC.PC.OV ---
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 Accompanied by: Self / Same As Patient Allergies Iodinated Contrast Media [IV CONTRAST] Allergy (Severe, Verified 05/19/23 15:45) ANAPHYLAXIS cyclobenzaprine [From FLEXERIL] Allergy (Intermediate, Verified 05/19/23 15:45) NUMBNESS gadobutrol [From GADAVIST] Allergy (Intermediate, Verified 05/19/23 15:45) DIFFICULTY BREATHING perfume [PERFUME] Allergy (Intermediate, Verified 05/19/23 15:45) TRIGGERS ASTHMA prednisone Allergy (Intermediate, Verified 05/19/23 15:45) swelling Medication List - Last Reconciled 05/19/23 by Trisha Aaron MD albuterol sulfate 2.5 mg (3 mL) inhalation Q4H PRN 30 days albuterol sulfate 90 mcg/actuation 2 inhalations inhalation Q6H PRN 30 days azelastine 2 sprays intranasal BID 30 days benzonatate 200 mg PO BID PRN cholecalciferol (vitamin D3) 50 mcg PO DAILY 90 days citalopram 40 mg PO DAILY clonazepam 1 mg PO BID PRN commode As directed fluticasone propionate 50 mcg/actuation (Flonase Allergy Relief) 1 spray intranasal DAILY 30 days ijnaxuamzla-jblsjnkri-yuvfgkpv 200-62.5-25 mcg (Trelegy Ellipta) 1 inh inhalation DAILY 30 days hydrochlorothiazide 25 mg PO QAM ibuprofen 600 mg PO Q8H PRN 10 days meclizine 25 mg PO TID PRN 7 days meloxicam 15 mg PO DAILY montelukast 10 mg PO DAILY nabumetone 500 mg PO BID nebulizers (AeroEclipse II Nebulizer) As directed pantoprazole 40 mg PO DAILY 90 days pregabalin 150 mg PO BID 30 days pseudoephedrine HCl ER (12 Hour Decongestant ER) 120 mg PO Q12H roflumilast 500 mcg PO DAILY Shower Chair As directed Symbicort 160-4.5 mcg/actuation (budesonide-formoterol) 2 puffs inhalation BID 30 days NS tiotropium bromide 2.5 mcg/actuation (Spiriva Respimat) 2 puffs PO DAILY tizanidine mg PO tramadol 50 mg PO Q6H PRN 30 days walker As directed zolpidem 10 mg PO BEDTIME PRN Tobacco use date assessed: 04/16/23 Dental Screening Dental Screen Date: 05/19/23 Did you have a dental visit in the last 12 months?: Yes Did you have a dental problem in the last 6 months where you did not have access to dental care?: No Was dental information given to patient?: Patient has dentist HPI HPI Comments History of Present Illness Details This is a 43-year-old female with mild recurrent major depression, morbid obesity, moderate persistent asthma, and hypertension that comes today complaining of left knee pain that has been bothering her for few months. She walks and suddenly the knee flexed and has caused multiple falls. Had an x-ray showing mild degenerative disc disease in left knee and had a cortisone injection with no significant relief. She would like either MRI of the left knee or a 2nd opinion. Depression somewhat stable with citalopram. She is morbidly obese with a BMI of 43.9 and has been losing weight unintentionally. Asthma has been well control with long-acting inhaler and this is follow by pulmonology. Blood pressure well control. [facility] Medical History (Updated 05/19/23 @ 16:00 by Trisha Aaron MD) Hypertension Left foot pain Chronic cough Right elbow pain Morbid obesity Generalized anxiety disorder Asthma Hypovitaminosis D Mild recurrent major depression Pleuritic chest pain COVID-19 Breast pain, left Sinusitis Low back pain Polyarthralgia Ophthalmoplegic migraine Menieres disease Frequent falls Skin lesion RBBB (right bundle branch block) Leg edema Breast mass, right Left elbow pain Fibromyalgia Ankle pain, right Labial lesion Rectal bleeding H. pylori duodenitis Submandibular lymphadenopathy Chronic neck pain AIRAM (obstructive sleep apnea) Panic attacks Surgical History History of endoscopy History of colonoscopy History of cholecystectomy History of hysterectomy History of tubal ligation History of section History of carpal tunnel surgery of right wrist Family History Father Oral cancer Thyroid cancer Colon cancer Mother JOEL (non-insulin dependent diabetes mellitus in young) Gastric ulcer Paternal Grandfather Colon cancer Paternal Uncle Colon cancer Other Family history of colon cancer in father Social History Housing: House Are you a primary patient care technician instructor to a significant other at home: No Alcohol intake: never Patient Tobacco Use Status: Never used Tobacco e-Cigarette/Vaping Use: Never Used Second Hand Smoke Exposure: No service: No Current occupational status: disabled Sexual orientation: Straight/Heterosexual Gender identity: Female Cognitive needs: Yes Hearing needs: No Vision needs: No Questionnaire PHQ-9 Over the last 2 weeks, how often have you been bothered by any of the following problems? 1. Little interest or pleasure in doing things: several days 2. Feeling down, depressed, or hopeless: nearly every day 3. Trouble falling or staying asleep, or sleeping too much: nearly every day 4. Feeling tired or having little energy: several days 5. Poor appetite or overeating: several days 6. Feeling bad about yourself - or that you are a failure or have let yourself or your family down: not at all 7. Trouble concentrating on things, such as reading the newspaper or watching television: not at all 8. Moving or speaking so slowly that other people could have noticed. Or the opposite - being so fidgety or restless that you have been moving around a lot more than usual: not at all 9. Thoughts that you would be better off or of hurting yourself in some way: not at all Total score: 9 Depression Screening Interpretation: Positive Depression Screening Follow-up: Existing condition and In treatment Depression Screening Done: Yes 14931 - PHQ-9 Billing: Yes Source: Developed by Drs. Juarez Westfall, Suzie Delarosa, Cornelius Brown and colleagues, with an educational nella from [employer]. Thrive Questionnaire Date Thrive assessed: 05/19/23 I am a: Patient What is your living situation today?: I have a steady place to live Within the past 12 months, did the food you bought not last and you didn't have the money to get more?: Never true Within the past 12 months, did you worry whether your food would run out before you got money to buy more?: Never true Do you have trouble paying for medicines?: No Do you have trouble getting transportation to medical appointments?: No Do you have trouble paying your heating and electricity bill?: No Do you have trouble taking care of your child, family member or friend?: No Do you have trouble with day-to-day activities such as bathing, preparing meals, shopping, managing finances, etc.?: Yes Are you currently unemployed and looking for a job?: No Are you interested in more education?: No Please select the resources that you would like help with: None Currently or been in a relationship where the following occur: no concerns reported THRIVE Score: 0 AUDIT C Alcohol Use Questionnaire (AUDIT-C) 1. How often do you have a drink containing alcohol?: Never Total Score: 0 LALIT-7 AMB Questionnaire LALIT-7 Date LALIT - 7 assessed: 05/19/23 Feeling nervous, anxious, or on edge: 2 = More than half the days Not being able to stop or control worryin = Not at all Worrying too much about different things: 1 = Several days Trouble relaxin = Not at all Being so restless that it is hard to sit still: 0 = Not at all Becoming easily annoyed or irritable: 1 = Several days Feeling afraid as if something awful might happen: 1 = Several days Total LALIT-7 score (0-4 normal; 5-9 mild; 10-14 moderate; 15-21 severe): 5 Source: Developed by Drs. Juarez Westfall, Suzie Delarosa, Cornelius Brown and colleagues, with an educational nella from [employer]. LALIT-7 Assessment Billing LALIT-7 Assessment Tool: LALIT-7 Assessment 14252 Review of Systems Const All systems reviewed & are unremarkable except as noted in HPI and below Eyes Reports no additional complaints, Denies change in vision and Denies other visual disturbances Card Denies chest pain at rest, Denies chest pain with activity, Denies edema, Denies irregular heart rhythm, Denies claudication, Denies dyspnea, Denies dyspnea on exertion, Denies orthopnea, Denies paroxysmal nocturnal dyspnea and Denies slow heart rate Resp Denies cough, Denies dyspnea and Denies dyspnea on exertion GI Denies abdominal pain, Denies change in bowel habits, Denies excessive flatus, Denies nausea and Denies vomiting Denies urinary incontinence, Denies urinary hesitancy and Denies urinary urgency Musc Denies atrophy, Denies deformity and Denies limited range of motion Skin/Breast Denies bleeding lesions, Denies changing lesions and Denies rash Physical exam (Primary Care) Vital Signs: Last Vital Signs BP 136/82 05/19/23 15:31 BMI result Body Mass Index 43.9 Tobacco/Smoking Status: Tobacco use Status Tobacco use date assessed 04/16/23 05/19/23 15:42 Patient Tobacco Use Status Never used Tobacco 05/19/23 15:42 e-Cigarette/Vaping Use Never Used 05/19/23 15:42 PHQ-9: PHQ-9 Score PHQ-9: Total score 9 05/19/23 16:34 Depression Screening Interpretation: Positive Depression Screening Follow-up: Existing condition and In treatment Thrive Assessment: Date of Thrive Assessment Date Thrive assessed 05/19/23 05/19/23 15:42 Currently or been in a relationship where the following occur: no concerns reported Eyes General: appearance normal, both eyes and all related structures Eyelids: Yes eyelids normal Conjunctivae: conjunctivae normal Neck Neck: Yes normal visual inspection and Yes supple Resp Effort & Inspection: normal respiratory effort Auscultation: clear to auscultation bilaterally Cardio Jugular venous distension: no JVD Rate: regular rate Rhythm: regular rhythm Heart sounds: S1 normal heart sound present and S2 normal heart sound present Extrem General: Yes full ROM Assessment and Plan Assessment & Plan (1) Hypertension: Code(s): I10 - Essential (primary) hypertension Plan: Continue hydrochlorothiazide. Blood pressure goal is equal or less than 130/80. (2) Knee pain, left: Code(s): M25.562 - Pain in left knee Plan: Referred to another Ortho for a 2nd opinion. (3) Mild recurrent major depression: Code(s): F33.0 - Major depressive disorder, recurrent, mild Plan: Continue citalopram. (4) Morbid obesity: Code(s): E66.01 - Morbid (severe) obesity due to excess calories Plan: Start diet and exercise. BMI goal is less than 30. (5) Asthma: Comment: (chronic persistent, severe bronchial asthma, with chronic rhinosinusitis) Code(s): J45.909 - Unspecified asthma, uncomplicated Plan: Continue long-acting inhaler. Use rescue inhaler as needed. Follow-up with pulmonology. Orders: Orders XR lumbar spine 2-3V 05/19/23 M54.50 - Low back pain, unspecified Comprehensive [place]. Panel Fast 05/19/23 R63.4 - Abnormal weight loss Complete Blood Count Auto Diff 05/19/23 R63.4 - Abnormal weight loss Thyroid Stimulating Hormone 05/19/23 R63.4 - Abnormal weight loss Referrals Orthopedics Referral M25.562 - Pain in left knee Coding Level of Care Code Est Pt Level 4 (24447) Diagnoses Hypertension I10 Knee pain, left M25.562 Mild recurrent major depression F33.0 Morbid obesity E66.01 Asthma J45.909 Additional Codes LALIT-7 Assessment Billing - LALIT-7 Assessment Tool: LALIT-7 Assessment 59438 ([id number]) Time Spent (min) 23
== END 2023-05-19 16:25 | disposition home or self-care (01) ==
PROVIDERS: PCP Internal Medicine; Visit Provider Internal Medicine
DX: I10 Essential (primary) hypertension (principal); F33.0 Major depressive disorder, recurrent, mild; E66.01 Morbid (severe) obesity due to excess calories; Z68.41 Body mass index [BMI] 40.0-44.9, adult; M25.562 Pain in left knee; J45.909 Unspecified asthma, uncomplicated
CPT/HCPCS: 99214

== ENCOUNTER 2023-06-11 10:46 | Outpatient (AMB) | payer OTHER, SELFPAY ==
--- NOTE | 2023-06-11 12:08 | AM.OFFWIN_ITS ---
Intake Vital Signs 06/11/23 12:09 Weight 270 lb BP 120/80 Blood Pressure Location Lt brachial Position Sitting Pulse 66 Pulse Source Pulse Oximeter Temp 98.2 F Temp Source Oral Pulse Oximetry (%) 98 Oxygen Delivery Method Room Air Intake Visit Reasons: EP Stomach pain 3Wks Intake Note: Patient here for stomach pain that has been present for about 1 week after having stomach virus that she had about 2 weeks ago. Pt states she has had very bad diarrhea as well. denies fevers. Patient Tobacco Use Status: Never used Tobacco Allergies Iodinated Contrast Media [IV CONTRAST] Allergy (Severe, Verified 06/11/23 12:11) ANAPHYLAXIS cyclobenzaprine [From FLEXERIL] Allergy (Intermediate, Verified 06/11/23 12:11) NUMBNESS gadobutrol [From GADAVIST] Allergy (Intermediate, Verified 06/11/23 12:11) DIFFICULTY BREATHING perfume [PERFUME] Allergy (Intermediate, Verified 06/11/23 12:11) TRIGGERS ASTHMA prednisone Allergy (Intermediate, Verified 06/11/23 12:11) swelling Do you need a note to return to daycare/school/sports/work: No HPI HPI Comments History of Present Illness Details 43 y/o female patient presents to walk i n clinic with c/o severe diarrhea, vomiting and nausea x 3 weeks. Her entire family has similar symptoms. Reports that symptoms have been progressively getting worse. She has tried taking OTC remedies with no relief. Denies vaginal or bladder symptoms. [facility] Medical History Hypertension Left foot pain Chronic cough Right elbow pain Morbid obesity Generalized anxiety disorder Asthma Hypovitaminosis D Mild recurrent major depression Pleuritic chest pain COVID-19 Breast pain, left Sinusitis Low back pain Polyarthralgia Ophthalmoplegic migraine Menieres disease Frequent falls Skin lesion RBBB (right bundle branch block) Leg edema Breast mass, right Left elbow pain Fibromyalgia Ankle pain, right Labial lesion Rectal bleeding H. pylori duodenitis Submandibular lymphadenopathy Chronic neck pain AIRAM (obstructive sleep apnea) Panic attacks Surgical History History of endoscopy History of colonoscopy History of cholecystectomy History of hysterectomy History of tubal ligation History of section History of carpal tunnel surgery of right wrist Family History Father Oral cancer Thyroid cancer Colon cancer Mother NIDDY (non-insulin dependent diabetes mellitus in young) Gastric ulcer Paternal Grandfather Colon cancer Paternal Uncle Colon cancer Other Family history of colon cancer in father Social History Housing: House Are you a primary career development associate to a significant other at home: No Alcohol intake: never Patient Tobacco Use Status: Never used Tobacco e-Cigarette/Vaping Use: Never Used Second Hand Smoke Exposure: No service: No Current occupational status: disabled Sexual orientation: Straight/Heterosexual Gender identity: Female Cognitive needs: Yes Hearing needs: No Vision needs: No Review of Systems Const All systems reviewed & are unremarkable except as noted in HPI and below Physical Exam Vital Signs: Last Vital Signs Temp 98.2 F 06/11/23 12:09 Pulse 66 06/11/23 12:09 BP 120/80 06/11/23 12:09 Pulse Ox 98 06/11/23 12:09 Oxygen Delivery Method Room Air 06/11/23 12:09 Const General: cooperative, no acute distress and ill appearing Nutritional Appearance: obese morbidly obese Orientation/consciousness: patient oriented x3 GI Inspection: Yes normal to inspection, No distended, Yes Abdominal panniculus present and Yes obesity Palpation (GI): Soft to palpation, not firm, Tenderness to palpation present (GI) in the LLQ, in the RLQ, in the LUQ and in the RUQ, no guarding, not rigid, No hepatosplenomegaly present, no hernias and no masses Auscultation: normal bowel sounds Rectal Exam - Female: deferred Neuro General: patient oriented x3, gait normal and no focal motor deficits Psych Speech and movement: Normal speech and movement present Affect: normal affect Assessment & Plan Assessment & Plan (1) Gastritis: Comment: Suspecting H.Pylori infection. Will empirically start treatment today. Code(s): K29.70 - Gastritis, unspecified, without bleeding Qualifiers: Chronicity: acute Gastritis bleeding: without bleeding Gastritis type: other gastritis Qualified Code(s): K29.00 - Acute gastritis without bleeding Plan: - Hydrate well with plenty of fluids such as Gatorade - Wash hands frequently - BLAND diet - Avoid spicy and greasy foods. (2) Diarrhea: Code(s): R19.7 - Diarrhea, unspecified Qualifiers: Diarrhea type: infectious Qualified Code(s): A09 - Infectious gastroenteritis and colitis, unspecified Plan: - Hydrate well with plenty of fluids such as Gatorade - Wash hands frequently - BLAND diet - Avoid spicy and greasy foods. Plan - Hydrate well with plenty of fluids such as Gatorade - Wash hands frequently - BLAND diet - Avoid spicy and greasy foods. Medications: New amoxicillin 1,000 mg (2 x 500 mg) PO Q12H 14 days 56 caps 0RF A09 - Infectious gastroenteritis and colitis, unspecified, K29.70 - Gastritis, unspecified, without bleeding omeprazole 20 mg PO BID 14 days 28 caps 0RF A09 - Infectious gastroenteritis and colitis, unspecified, K29.70 - Gastritis, unspecified, without bleeding metronidazole 500 mg PO BID 14 days 28 tabs 0RF A09 - Infectious gastroenteritis and colitis, unspecified, K29.70 - Gastritis, unspecified, without bleeding ondansetron 8 mg PO Q8H 60 tabs 0RF A09 - Infectious gastroenteritis and colitis, unspecified, K29.70 - Gastritis, unspecified, without bleeding Coding Level of Care Code Est Pt Level 3 (53697) Diagnoses Other acute gastritis without hemorrhage K29.00 Chronicity: acute Gastritis bleeding: without bleeding Gastritis type: other gastritis Diarrhea of infectious origin A09 Diarrhea type: infectious Time Spent (min) 15
[2023-06-11 12:09] VITALS: BP 120/80; PULSE 66; TEMP 36.8; O2SAT 98
== END 2023-06-11 12:58 | disposition home or self-care (01) ==
PROVIDERS: PCP Internal Medicine; Visit Provider Nurse Practitioner Family
DX: K29.00 Acute gastritis without bleeding (principal); A09 Infectious gastroenteritis and colitis, unspecified
CPT/HCPCS: 99213

== ENCOUNTER → 2023-08-20 10:24 | Outpatient (REF) | payer OTHER, SELFPAY ==
--- NOTE | 2023-08-20 10:29 | ECG_ITS ---
Test Reason : COPD Blood Pressure : / mmHG Vent. Rate : 079 BPM Atrial Rate : 079 BPM P-R Int : 122 ms QRS Dur : 140 ms QT Int : 422 ms P-R-T Axes : 019 030 -06 degrees QTc Int : 483 ms Normal sinus rhythm Right bundle branch block Abnormal ECG When compared with ECG of 30-SEP-2022 11:58, Right bundle branch block has replaced Incomplete right bundle branch block Referred By: Bryan Sheehan Electronically Signed By:HERMELINDO AGUAYO MD
[2023-08-20 10:46] LABS: MANUAL DIFF FLAG NO
[2023-08-20 10:51] LABS: Basophils Percent Auto 0.2 % (0-2); Eosinophils Percent Auto 0.4 % (0-4); Hematocrit 38.2 % (37.0-47.0); Hemoglobin 13.5 g/dl (12.0-16.0); Imm Gran Abs Auto 0.07 X10*3/uL (0.00-0.03); Imm Gran Pct Auto 0.7 % (0.0-0.4); Lymphocytes Absolute Auto 2.1 X10*3/uL (1.2-4.9); Lymphocytes Percent Auto 21.8 % (20-40); Mean Corpuscular HGB Conc 35.3 g/dl (31.0-35.0); Mean Corpuscular Hemoglobin 31.1 pg (27.0-33.0); Mean Platelet Volume 8.6 fL (9.4-12.3); Monocytes Absolute Auto 0.5 X10*3/uL (0.1-1.2); Monocytes Percent Auto 5.4 % (2-11); Neutrophils Percent Auto 71.5 % (45-73); Platelet Count 321 X10*3/uL (160-400); Red Blood Count 4.34 X10*6/uL (4.20-5.50); Red Cell Distribution Width 12.9 % (11.0-16.0); White Blood Count 9.7 X10*3/uL (4.8-10.8)
[2023-08-20 11:15] LABS: Alanine Aminotransferase 19 U/L (0-31); Albumin Level 3.9 g/dL (3.5-5.0); Alkaline Phosphatase 99 U/L (39-117); Anion Gap 11 (12-20); Aspartate Amino Transferase 14 U/L (5-31); Bilirubin Total 0.5 mg/dL (0.0-1.0); Blood Urea Nitrogen 13 mg/dL (9-16); Calcium 8.7 mg/dL (8.4-10.2); Carbon Dioxide 27 mmol/L (22-29); Chloride 106 mmol/L (96-108); Cholesterol 139 mg/dL (<200); Estimated Glomerular Filt Rate > 60; Glucose Fasting 96 mg/dL (60-99); Glucose Random 96 mg/dL (60-115); HDL Cholesterol 37 mg/dL (>40); LDL Cholesterol Calculated 76 mg/dL (<100); Potassium 3.4 mmol/L (3.3-5.1); Sodium 141 mmol/L (135-145); Total Protein 7.3 g/dL (6.5-8.0); Triglycerides 134 mg/dL (<150)
[2023-08-20 11:17] LABS: Estimated Average Glucose 97 mg/dL
[2023-08-20 11:31] LABS: Thyroid Stimulating Hormone 2.18 uIU/mL (0.32-4.0)
== END ==
LOC: HO.CARD 10:24
PROVIDERS: Absent Provider Internal Medicine; PCP Internal Medicine; Referring Provider Hospitalist; Visit Provider Nurse Practitioner Family
DX: Z13.0 Encounter for screening for diseases of the blood and blood-forming organs and certain disorders involving the immune mechanism (principal); Z13.220 Encounter for screening for lipoid disorders; R07.9 Chest pain, unspecified; I10 Essential (primary) hypertension; R73.09 Other abnormal glucose; R63.4 Abnormal weight loss; J44.9 Chronic obstructive pulmonary disease, unspecified
CPT/HCPCS: 36415; 80053; 80061; 83036; 84443; 85025; 93005

== ENCOUNTER → 2023-08-20 10:29 | Outpatient (BNV) | payer OTHER, SELFPAY | PROVIDERS: Absent Provider Internal Medicine; PCP Internal Medicine; Referring Provider Hospitalist; Visit Provider Internal Medicine Cardiovascular Disease | DX: R94.31 Abnormal electrocardiogram [ECG] [EKG] (principal) | CPT/HCPCS: 93010 ==

== ENCOUNTER 2023-09-20 14:02 | Outpatient (AMB) | payer OTHER, SELFPAY ==
[2023-09-20 14:04] VITALS: BP 130/86; PULSE 79; O2SAT 98; BMI 45.8
--- NOTE | 2023-09-20 14:04 | MHC.PC.OV ---
Vital Signs 09/20/23 14:04 Height 5 ft 6 in Weight 284 lb 0.4 oz BMI 45.8 BP 130/86 Blood Pressure Location Lt brachial Position Sitting Pulse 79 Pulse Source Pulse Oximeter Pulse Oximetry (%) 98 Oxygen Delivery Method Room Air Intake Visit Reasons: 4mth f/u Intake Note: Patient is here to follow up on 4 months Aircraft Refueller Required: No Accompanied by: Self / Same As Patient Allergies Iodinated Contrast Media [IV CONTRAST] Allergy (Severe, Verified 09/20/23 14:20) ANAPHYLAXIS cyclobenzaprine [From FLEXERIL] Allergy (Intermediate, Verified 09/20/23 14:20) NUMBNESS gadobutrol [From GADAVIST] Allergy (Intermediate, Verified 09/20/23 14:20) DIFFICULTY BREATHING perfume [PERFUME] Allergy (Intermediate, Verified 09/20/23 14:20) TRIGGERS ASTHMA prednisone Allergy (Intermediate, Verified 09/20/23 14:20) swelling Medication List - Last Reconciled 09/20/23 by Trisha Aaron MD albuterol sulfate 2.5 mg (3 mL) inhalation Q4H PRN 30 days albuterol sulfate 90 mcg/actuation 2 inhalations inhalation Q6H PRN 30 days azelastine 2 sprays intranasal BID 30 days azithromycin 250 mg PO 3XW 28 days azithromycin 250 mg PO 3XW 28 days cholecalciferol (vitamin D3) 50 mcg PO DAILY 90 days citalopram 40 mg PO DAILY clonazepam 1 mg PO BID PRN commode As directed fluticasone propionate 50 mcg/actuation (Flonase Allergy Relief) 1 spray intranasal DAILY 30 days usuuvuzkeih-aqzaieakn-sydmpqul 200-62.5-25 mcg (Trelegy Ellipta) 1 inh inhalation DAILY 30 days hydrochlorothiazide 25 mg PO QAM ibuprofen 600 mg PO Q8H PRN 10 days meclizine 25 mg PO TID PRN 7 days meloxicam 15 mg PO DAILY metronidazole 500 mg PO BID 14 days montelukast 10 mg PO DAILY nabumetone 500 mg PO BID nebulizers (AeroEclipse II Nebulizer) As directed omeprazole 20 mg PO BID 14 days ondansetron 8 mg PO Q8H pantoprazole 40 mg PO DAILY 90 days pregabalin 150 mg PO BID 30 days pseudoephedrine HCl ER (12 Hour Decongestant ER) 120 mg PO Q12H roflumilast 500 mcg PO DAILY Shower Chair As directed Symbicort 160-4.5 mcg/actuation (budesonide-formoterol) 2 puffs inhalation BID 30 days NS tiotropium bromide 2.5 mcg/actuation (Spiriva Respimat) 2 puffs PO DAILY tizanidine mg PO tramadol 50 mg PO Q6H PRN 30 days walker As directed zolpidem 10 mg PO BEDTIME PRN Tobacco use date assessed: 09/20/23 Dental Screening Dental Screen Date: 05/19/23 HPI HPI Comments History of Present Illness Details This is a 43-year-old female with hypertension, mild major depression, and morbid obesity that complains of epigastric pain that has been present for few months associated with some type of foods. She is compliant with pantoprazole. Has not seen Gastroenterology in a while. I will add Carafate and refer her to Gastroenterology. Also complains of a skin lesion in her hand and I will refer her to Dermatology. Blood pressure stable. She is morbidly obese with a BMI of 45.8 and declines weight loss surgery. BMI goal is less than 30. [facility] Medical History (Updated 09/20/23 @ 15:17 by Trisha Aaron MD) Skin lesion Hypertension Left foot pain Chronic cough Right elbow pain Morbid obesity Generalized anxiety disorder Asthma Hypovitaminosis D Mild recurrent major depression Pleuritic chest pain COVID-19 Breast pain, left Sinusitis Low back pain Polyarthralgia Ophthalmoplegic migraine Menieres disease Frequent falls RBBB (right bundle branch block) Leg edema Breast mass, right Left elbow pain Fibromyalgia Ankle pain, right Labial lesion Rectal bleeding H. pylori duodenitis Submandibular lymphadenopathy Chronic neck pain AIRAM (obstructive sleep apnea) Panic attacks Surgical History History of endoscopy History of colonoscopy History of cholecystectomy History of hysterectomy History of tubal ligation History of section History of carpal tunnel surgery of right wrist Family History Father Oral cancer Thyroid cancer Colon cancer Mother NIDDY (non-insulin dependent diabetes mellitus in young) Gastric ulcer Paternal Grandfather Colon cancer Paternal Uncle Colon cancer Other Family history of colon cancer in father Social History Housing: House Are you a primary customer care team coach to a significant other at home: No Alcohol intake: never Patient Tobacco Use Status: Never used Tobacco e-Cigarette/Vaping Use: Never Used Second Hand Smoke Exposure: No service: No Current occupational status: disabled Sexual orientation: Straight/Heterosexual Gender identity: Female Cognitive needs: Yes Hearing needs: No Vision needs: No Questionnaire PHQ-9 Over the last 2 weeks, how often have you been bothered by any of the following problems? 1. Little interest or pleasure in doing things: several days 2. Feeling down, depressed, or hopeless: nearly every day 3. Trouble falling or staying asleep, or sleeping too much: nearly every day 4. Feeling tired or having little energy: several days 5. Poor appetite or overeating: several days 6. Feeling bad about yourself - or that you are a failure or have let yourself or your family down: not at all 7. Trouble concentrating on things, such as reading the newspaper or watching television: not at all 8. Moving or speaking so slowly that other people could have noticed. Or the opposite - being so fidgety or restless that you have been moving around a lot more than usual: not at all 9. Thoughts that you would be better off or of hurting yourself in some way: not at all Total score: 9 Depression Screening Interpretation: Positive Depression Screening Follow-up: Existing condition, In treatment, Community Mental Health Worker F/U and Follow-up Visit Requested Depression Screening Done: Yes 24938 - PHQ-9 Billing: Yes Source: Developed by Drs. Juarez Westfall, Suzie Delarosa, Cornelius Brown and colleagues, with an educational nella from [employer]. Thrive Questionnaire Date Thrive assessed: 05/19/23 AUDIT C Alcohol Use Questionnaire (AUDIT-C) 1. How often do you have a drink containing alcohol?: Never 3. How often do you have six or more drinks on one occasion?: Never Total Score: 0 LALIT-7 AMB Questionnaire LALIT-7 Date LALIT - 7 assessed: 05/19/23 Source: Developed by Drs. Juarez Westfall, Cornelius Calero and colleagues, with an educational nella from [employer]. Review of Systems Const All systems reviewed & are unremarkable except as noted in HPI and below Card Denies chest pain at rest, Denies chest pain with activity, Denies edema, Denies irregular heart rhythm, Denies claudication, Denies dyspnea, Denies dyspnea on exertion, Denies orthopnea, Denies paroxysmal nocturnal dyspnea and Denies slow heart rate Resp Denies cough, Denies dyspnea and Denies dyspnea on exertion GI Reports abdominal pain and Reports heartburn Neuro Denies behavioral changes and Denies lack of coordination Psych Denies behavioral changes Physical exam (Primary Care) Vital Signs: Last Vital Signs Pulse 79 09/20/23 14:04 BP 130/86 09/20/23 14:04 Pulse Ox 98 09/20/23 14:04 Oxygen Delivery Method Room Air 09/20/23 14:04 BMI result Body Mass Index 45.8 Tobacco/Smoking Status: Tobacco use Status Tobacco use date assessed 09/20/23 09/20/23 14:06 Patient Tobacco Use Status Never used Tobacco 09/20/23 14:06 e-Cigarette/Vaping Use Never Used 09/20/23 14:06 PHQ-9: PHQ-9 Score PHQ-9: Total score 9 09/20/23 14:23 Depression Screening Interpretation: Positive Depression Screening Follow-up: Existing condition, In treatment, Community Mental Health Worker F/U and Follow-up Visit Requested Thrive Assessment: Date of Thrive Assessment Date Thrive assessed 05/19/23 09/20/23 14:06 Resp Effort & Inspection: normal respiratory effort Auscultation: clear to auscultation bilaterally Cardio Jugular venous distension: no JVD Rate: regular rate Rhythm: regular rhythm Heart sounds: S1 normal heart sound present and S2 normal heart sound present Extrem General: Yes full ROM Assessment and Plan Assessment & Plan (1) Hypertension: Code(s): I10 - Essential (primary) hypertension Qualifiers: Hypertension type: primary hypertension Qualified Code(s): I10 - Essential (primary) hypertension Plan: Continue hydrochlorothiazide. Blood pressure goal is equal or less than 130/80. (2) Epigastric pain: Code(s): R10.13 - Epigastric pain Plan: Upper GI series ordered. Referred to Gastroenterology. Start Carafate. Continue pantoprazole. (3) Skin lesion: Code(s): L98.9 - Disorder of the skin and subcutaneous tissue, unspecified Plan: Referred to dermatology. (4) Mild recurrent major depression: Code(s): F33.0 - Major depressive disorder, recurrent, mild Plan: Continue citalopram. Follow-up with psychiatry. (5) Morbid obesity: Code(s): E66.01 - Morbid (severe) obesity due to excess calories Plan: Start diet and exercise. BMI goal is less than 30. Orders: Orders [place] upper GI series Today R10.13 - Epigastric pain Referrals Gastroenterology Referral R10.13 - Epigastric pain Dermatology Referral L98.9 - Disorder of the skin and subcutaneous tissue, unspecified Medications: New sucralfate (Carafate) 10 mL PO BID 400 mL 1RF 20 days Discontinued omeprazole Discontinued Reason: Patient Completed Course 20 mg PO BID 14 days 28 caps 0RF A09 - Infectious gastroenteritis and colitis, unspecified, K29.70 - Gastritis, unspecified, without bleeding metronidazole Discontinued Reason: Patient Completed Course 500 mg PO BID 14 days 28 tabs 0RF A09 - Infectious gastroenteritis and colitis, unspecified, K29.70 - Gastritis, unspecified, without bleeding Coding Level of Care Code Est Pt Level 4 (06040) Complex EM visit Add On G2211 Diagnoses Primary hypertension I10 Hypertension type: primary hypertension Epigastric pain R10.13 Skin lesion L98.9 Mild recurrent major depression F33.0 Morbid obesity E66.01 Time Spent (min) 23
== END 2023-09-20 14:31 | disposition home or self-care (01) ==
PROVIDERS: PCP Internal Medicine; Visit Provider Internal Medicine
DX: I10 Essential (primary) hypertension (principal); R10.13 Epigastric pain; L98.9 Disorder of the skin and subcutaneous tissue, unspecified; F33.0 Major depressive disorder, recurrent, mild
CPT/HCPCS: 99214; G2211

== ENCOUNTER 2023-09-28 14:38 | Outpatient (AMB) | payer OTHER, SELFPAY ==
[2023-09-28 14:45] VITALS: PULSE 90; O2SAT 98; BMI 45.5
--- NOTE | 2023-09-28 14:45 | A.OFFVIS_ITS ---
Vital Signs 09/28/23 14:45 Height 5 ft 6 in Weight 282 lb BMI 45.5 Pulse 90 Pulse Source Pulse Oximeter Pulse Oximetry (%) 98 Oxygen Delivery Method Room Air Intake Visit Reasons: asthma Clinical Implementation Specialist Required: No Allergies Iodinated Contrast Media [IV CONTRAST] Allergy (Severe, Verified 09/28/23 14:46) ANAPHYLAXIS cyclobenzaprine [From FLEXERIL] Allergy (Intermediate, Verified 09/28/23 14:46) NUMBNESS gadobutrol [From GADAVIST] Allergy (Intermediate, Verified 09/28/23 14:46) DIFFICULTY BREATHING perfume [PERFUME] Allergy (Intermediate, Verified 09/28/23 14:46) TRIGGERS ASTHMA prednisone Allergy (Intermediate, Verified 09/28/23 14:46) swelling HPI Comments Details: The patient is a 43 year old woman with a known history of severe persistent asthma. She had been on Advair both the Diskus in the HFA but resulted in adverse side effects. She can no longer uses medicines. A distant Symbicort and she did start using the medicine but has not been filled at the pharmacy as of yet. She is also using Spiriva. For the last month and have her respiratory status has been getting worse. She has had to go to urgent care and also to the ER twice. She was placed on prednisone twice. She has no better. She still having exacerbations of the breathing specially at nighttime. She has severe spells resulting in nausea and dry heaves. She is very concerned for the fact that she is not getting any better. She also complains of significant postnasal drip that is aggravating her symptoms. She is not sure of his allergy related or cold related. She has not had any blood work or x-rays recently. She did have a sleep study although very limited because it had only recorded a small amount of information. She states that she still has daytime drowsiness. She feels that she has significant snoring. And she does get tired during the daytime with an elevated [place] score of 12/24. We did do allergy testing but she will only tested positive for mild allergy to cockroaches the rest of the rest study was negative and her eosinophils were normal. Therefore she doesn't qualify for biologics. In the meantime she continues to have daytime drowsiness. She did have a sleep study done demonstrating severe sleep apnea. At this point based on her symptoms the patient needs to start CPAP therapy RODERICK. Arrangements will be made with local [employer] company to start CPAP therapy at this time. 05/21/2022 the patient is here for a pulmonary follow-up visit. She was doing well until 2 days ago when she started developing worsening cough. At some point her coughing was so significant that she lost her balance and she fell and hurt her right elbow. She definitely at [facility] approve it. The patient has been using her inhalers only with partial resolution of the symptoms. She feels like she is getting a cold and a respiratory illness. In the meantime she does continue to use her CPAP every night. The CPAP therapy continues to be affecting beneficial. She has been using her respiratory medications as prescribed. She was supposed to be on Daliresp for some reason is no longer on her list of medications. Therefore I will responded to the pharmacy. I am hopeful that with the Daliresp we can prevent prednisone for the patient and decrease her exacerbations. 08/11/2022 the patient is here for pulmonary follow-up visit. The patient just recently got back from [place]. When she was there she was sick likely with viral syndrome. She was evaluated urgent care was given prednisone and also course of antibiotics. The patient does have significant cough variant asthma. She has been on a very aggressive regimen including Daliresp in addition to Symbicort and Spiriva. For her cough she does respond well to the Bentson I's and also cough syrup. Will provide her other medications she continues stable. Unfortunately they just get a diagnosis of cancer and her nephew of 3 years old. This caused significant stress and has caused her respiratory symptoms to worsen. Will continue to manage her symptoms. In the meantime she also complains of a pleuritic type of discomfort primarily in the the right lung on the back area specially with taking deep breath. Will go and repeat a chest x- ray to make sure. She will also request allergy testing done to be done again in order to see if she is a candidate for biologic therapy in order to improve her respiratory capacity and asthma treatment. The patient continues use her CPAP every night. CPAP therapy has been affecting beneficial. She does use it for more than 4 hours a night. She has been getting supplies readily. 11/06/2022 the patient is here for a pulmonary follow-up visit. She continues to struggle with productive cough and chronic bronchitis. She is on optimize respiratory therapy at this time. We did blood work assessing her for potential biologics that the patient does not qualify as she does have a new and eosinophil count and normal IgE level. Therefore, will go ahead and start her on azithromycin for chronic bronchitis. She can take that 3 times a week. The patient is also having issues with sinus congestion and chronic sinusitis. She has tolerated Sudafed in the past. We also talked about Neti pot a rinsing as lungs is with distilled water. In 4 2-4 weeks she can try using budesonide to help her with the inflammatory disease. 02/11/2023 the patient is here for pulmonary follow-up visit. The patient has been having a very difficult time of the month of January. Had significant chest tightness cough and wheezing. She did not want to go to the ER. Although around mid January her symptoms got worse with chest discomfort and she called the ambulance with a took her to [facility] because of the chest pain and the possibility of acute coronary syndrome. When she was there she did have blood work done which was all normal and she had an x-ray that was normal and she waited. However, after several hours awaiting she left against medical advice. She still struggling with a cough. Still productive in nature. She has been using her nebulizer frequently. Will go ahead and treat her for subacute bronchitis. If the patient is no better she can always call for further recommendations. 04/19/2023 the patient is here for a pulmonary follow-up visit. She is having hard time with her asthma. She has been using the Symbicort and the Spiriva. Although she does not feel like it is helping her much. She recently had an upper respiratory illness in image resulted in some swelling in the throat area. She had a hard time swallowing also breathing. She has a little better although she still feels that area abnormal. In addition to that she had a fall and she hurt her knee. She has been limping. She did have an x-ray of her knee and will be seeing orthopedic soon. will go ahead and optimize her respiratory therapy. 09/28/2023 the patient is here for a pulmonary follow-up visit. She still struggling with breathing. Has significant coughing spells and the coughing spells caused her to have worsening asthma symptoms and then she states that she develops like a panic attack. When that happens she is tends to freeze and then she needs help with getting her nebulizer treatments ready. Typically her nebulizer does help her but she does need to use it a few times a day. She has also using the Trelegy inhaler. We did talk about other alternatives including biologics although her IgE levels within normal limits and she does not have any evidence of any eosinophilia. I did give her information about test prior. The patient also complains of epigastric discomfort. She has had reflux in the past does not seem to have it as much anymore. Will go ahead and request a barium swallow in case she is having non acid reflux resulting in the coughing worsening asthma symptoms. In addition to that she was following the reflux diet and is going to be sleeping elevated. After the barium swallow patient should also have a GI evaluation. A referral was already placed. At this point will go ahead and start her on azithromycin that which would be a good promotility agent for her to help with GI issues in addition to improving the chronic bronchitis symptoms that she developing with a cough. She should have an EKG done specially since she takes an SSRI make sure that there has no significant QT abnormalities. The patient will go ahead and continue the medicine for about 6-8 weeks and follow-up at that point. If she has no better she can always call. We did give her information about the Tezspire that if she has no better that be the other option. [facility] Medical History (Updated 09/20/23 @ 15:17 by Trisha Aaron MD) Skin lesion Hypertension Left foot pain Chronic cough Right elbow pain Morbid obesity Generalized anxiety disorder Asthma Hypovitaminosis D Mild recurrent major depression Pleuritic chest pain COVID-19 Breast pain, left Sinusitis Low back pain Polyarthralgia Ophthalmoplegic migraine Menieres disease Frequent falls RBBB (right bundle branch block) Leg edema Breast mass, right Left elbow pain Fibromyalgia Ankle pain, right Labial lesion Rectal bleeding H. pylori duodenitis Submandibular lymphadenopathy Chronic neck pain AIRAM (obstructive sleep apnea) Panic attacks Surgical History History of endoscopy History of colonoscopy History of cholecystectomy History of hysterectomy History of tubal ligation History of section History of carpal tunnel surgery of right wrist Family History Father Oral cancer Thyroid cancer Colon cancer Mother JOEL (non-insulin dependent diabetes mellitus in young) Gastric ulcer Paternal Grandfather Colon cancer Paternal Uncle Colon cancer Other Family history of colon cancer in father Social History Housing: House Are you a primary palliative care specialist to a significant other at home: No Alcohol intake: never Patient Tobacco Use Status: Never used Tobacco e-Cigarette/Vaping Use: Never Used Second Hand Smoke Exposure: No service: No Current occupational status: disabled Sexual orientation: Straight/Heterosexual Gender identity: Female Cognitive needs: Yes Hearing needs: No Vision needs: No Review of Systems Const Denies chills, Denies fever(s) and Denies night sweats ENT Denies change in voice, Denies mouth pain, Reports nasal congestion, Reports nasal discharge, Denies sinus pain, Denies sinus pressure and Denies tongue swelling Card Denies chest pain, Denies dyspnea and Reports dyspnea on exertion Resp Reports change in phlegm color, Reports chest congestion, Reports cough, Denies dyspnea, Reports dyspnea on exertion and Reports wheezing GI Denies abdominal pain, Reports dyspepsia and Reports heartburn Musc Reports as per HPI, Reports abnormal gait, Reports arthralgias and Reports joint swelling Neuro Denies Neuro-related abnormal movements and Reports abnormal gait Psych Denies no additional complaints Jacob/Lymph Denies easy bleeding and Denies lymphadenopathy Aller/Immun Denies tongue swelling and Reports wheezing Physical Exam Vital Signs: Last Vital Signs Pulse 90 09/28/23 14:45 Pulse Ox 98 09/28/23 14:45 Oxygen Delivery Method Room Air 09/28/23 14:45 BMI result Body Mass Index 45.5 Const General: alert and awake Orientation/consciousness: patient oriented x3 HEENT Head: Yes normal to inspection Face and sinus: Yes sinuses nontender Mouth: oropharynx normal Throat: Yes posterior oropharynx normal Eyes General: appearance normal, both eyes and all related structures Neck Neck: Yes normal visual inspection, Yes no lymphadenopathy, Yes trachea midline and Yes no JVD Chest Chest palpation & inspection: normal inspection of the chest, normal palpation of entire chest wall and no tenderness Resp Effort & Inspection: normal respiratory effort, no cough and prolonged expiratory phase Auscultation: no wheezes and diminished lung sounds Cardio Palpation: normal PMI Rate: regular rate Rhythm: regular rhythm Heart sounds: no gallops and no murmurs GI Palpation (GI): Soft to palpation, nontender, No hepatosplenomegaly present, no masses and Other GI palpation findings present (Abdomen is obese and protuberant) Auscultation: normal bowel sounds Skin General skin exam: no rashes or lesions noted Neuro General: patient oriented x3 and no focal motor deficits Cranial nerves: Yes CN's II-XII intact bilaterally Extrem General: Yes normal to inspection, Yes no clubbing, cyanosis or edema and Yes no calf tenderness Psych Speech and movement: Normal speech and movement present Affect: Anxious affect present Assessment & Plan Assessment & Plan (1) Asthma: Code(s): J45.909 - Unspecified asthma, uncomplicated Category: Medical Qualifiers: Asthma complication type: uncomplicated Asthma persistence: persistent Asthma severity: severe Qualified Code(s): J45.50 - Severe persistent asthma, uncomplicated (2) AIRAM (obstructive sleep apnea): Comment: (mild AIRAM, AHI 10.1 on 08/22/17 sleep study) Code(s): G47.33 - Obstructive sleep apnea (adult) (pediatric) Category: Medical (3) Cough: Code(s): R05.9 - Cough, unspecified Category: Medical Qualifiers: Cough type: chronic Qualified Code(s): R05.3 - Chronic cough (4) Chronic allergic rhinitis: Code(s): J30.9 - Allergic rhinitis, unspecified Category: Medical (5) Chronic cough: Code(s): R05.3 - Chronic cough Category: Medical Plan continue Trelegy 200 daily start azithromycin MWF continue Dairesp consider Tezspire cough medicine continue nebulizer therapy cough medine: Tessalon pearls, cough syrup continue CPAP therapy barium swallow F/U 2-3 months Orders: Orders [place] barium swallow Today K21.9 - Gastro-esophageal reflux disease without esophagitis ECG 12 lead EKG Today J44.9 - Chronic obstructive pulmonary disease, unspecified Medications: New azithromycin Take 1 tablet on Wednesday/Wednesday/Wednesday 250 mg PO 3XW 28 days 12 tabs 1RF K21.9 - Gastro-esophageal reflux disease without esophagitis azithromycin Take 1 tablet on Wednesday/Wednesday/Wednesday 250 mg PO 3XW 12 tabs 2RF 28 days K21.9 - Gastro-esophageal reflux disease without esophagitis Coding Level of Care Code Est Pt Level 4 (07545) Diagnoses Severe persistent asthma without complication J45.50 Asthma complication type: uncomplicated Asthma persistence: persistent Asthma severity: severe AIRAM (obstructive sleep apnea) G47.33 Chronic cough R05.3 Cough type: chronic Chronic allergic rhinitis J30.9 Chronic cough R05.3 Time Spent (min) 17
== END 2023-09-28 15:07 | disposition home or self-care (01) ==
PROVIDERS: PCP Internal Medicine; Visit Provider Hospitalist
DX: J45.50 Severe persistent asthma, uncomplicated (principal); G47.33 Obstructive sleep apnea (adult) (pediatric); R05.3 Chronic cough; J30.9 Allergic rhinitis, unspecified
CPT/HCPCS: 99214

== ENCOUNTER → 2023-09-28 14:38 | Outpatient (BNVA) | payer OTHER, SELFPAY | PROVIDERS: PCP Internal Medicine; Visit Provider Hospitalist | DX: J45.50 Severe persistent asthma, uncomplicated (principal); R05.3 Chronic cough; J30.9 Allergic rhinitis, unspecified; G47.33 Obstructive sleep apnea (adult) (pediatric) | CPT/HCPCS: 99212 ==

== ENCOUNTER 2023-11-29 15:10 | Outpatient (AMB) | payer OTHER, SELFPAY ==
[2023-11-29 15:27] VITALS: BP 130/82; PULSE 74; O2SAT 95; BMI 46.6
--- NOTE | 2023-11-29 15:27 | MHC.PC.OV ---
Vital Signs 11/29/23 15:27 Height 5 ft 6 in Weight 289 lb BMI 46.6 BP 130/82 Blood Pressure Location Lt brachial Position Sitting Pulse 74 Pulse Source Pulse Oximeter Pulse Oximetry (%) 95 Oxygen Delivery Method Room Air Intake Visit Reasons: RT breast pain Package Sealer Machine Required: Yes Package Sealer Machine Name: [id number] Accompanied by: Self / Same As Patient Allergies Iodinated Contrast Media [IV CONTRAST] Allergy (Severe, Verified 11/29/23 15:30) ANAPHYLAXIS cyclobenzaprine [From FLEXERIL] Allergy (Intermediate, Verified 11/29/23 15:30) NUMBNESS gadobutrol [From GADAVIST] Allergy (Intermediate, Verified 11/29/23 15:30) DIFFICULTY BREATHING perfume [PERFUME] Allergy (Intermediate, Verified 11/29/23 15:30) TRIGGERS ASTHMA prednisone Allergy (Intermediate, Verified 11/29/23 15:30) swelling Medication List - Last Reconciled 11/29/23 by Shannan Khalil PA-C albuterol sulfate 2.5 mg (3 mL) inhalation Q4H PRN 30 days albuterol sulfate 90 mcg/actuation 2 inhalations inhalation Q6H PRN 30 days azelastine 2 sprays intranasal BID 30 days azithromycin 250 mg PO 3XW 28 days cholecalciferol (vitamin D3) 50 mcg PO DAILY 90 days citalopram 40 mg PO DAILY clonazepam 1 mg PO BID PRN commode As directed fluticasone propionate 50 mcg/actuation (Flonase Allergy Relief) 1 spray intranasal DAILY 30 days zmudklmeumy-podvdfhqr-rjxzjvip 200-62.5-25 mcg (Trelegy Ellipta) 1 inh inhalation DAILY 30 days hydrochlorothiazide 25 mg PO QAM hydroxyzine HCl 50 mg PO BID ibuprofen 600 mg PO Q8H PRN 10 days meclizine 25 mg PO TID PRN 7 days meloxicam 15 mg PO DAILY montelukast 10 mg PO DAILY nabumetone 500 mg PO BID nebulizers (AeroEclipse II Nebulizer) As directed ondansetron 8 mg PO Q8H pantoprazole 40 mg PO DAILY 90 days pregabalin 150 mg PO BID 30 days pseudoephedrine HCl ER (12 Hour Decongestant ER) 120 mg PO Q12H roflumilast 500 mcg PO DAILY Shower Chair As directed sucralfate (Carafate) 10 mL PO BID 20 days Symbicort 160-4.5 mcg/actuation (budesonide-formoterol) 2 puffs inhalation BID 30 days NS tiotropium bromide 2.5 mcg/actuation (Spiriva Respimat) 2 puffs PO DAILY tizanidine mg PO tramadol 50 mg PO Q6H PRN 30 days walker As directed zolpidem 10 mg PO BEDTIME PRN Tobacco use date assessed: 09/20/23 Dental Screening Dental Screen Date: 05/19/23 HPI RT breast pain HPI Details 43-year-old female with past medical history of GERD, fibromyalgia, generalized anxiety disorder, depression, obstructive sleep apnea, asthma, hypertension last seen by Dr. Rahman September 2023 coming in for acute problem.? In review of the notes, patient was seen by pulmonology September 2023 for follow up on asthma continue on tezspire, Trelegy, Dairesp, CPAP, Tessalon Perles and cough syrup and start azithromycin Wednesday.? Ordered for barium swallow and follow up in 2-3 months. She states she has been having right breast pain for several weeks that sometimes radiates into the armpit and sometimes has numbness around the areola. One month ago she mentioned she had a single sore on the right breast that had resolved spontaneously. She does have tenderness when she touches the breast as well. Denies any discharge from the nipple or skin changes. Has not palpated a mass. Mammogram scheduled for next month. [facility] Medical History Skin lesion Hypertension Left foot pain Chronic cough Right elbow pain Morbid obesity Generalized anxiety disorder Asthma Hypovitaminosis D Mild recurrent major depression Pleuritic chest pain COVID-19 Breast pain, left Sinusitis Low back pain Polyarthralgia Ophthalmoplegic migraine Menieres disease Frequent falls RBBB (right bundle branch block) Leg edema Breast mass, right Left elbow pain Fibromyalgia Ankle pain, right Labial lesion Rectal bleeding H. pylori duodenitis Submandibular lymphadenopathy Chronic neck pain AIRAM (obstructive sleep apnea) Panic attacks Surgical History History of endoscopy History of colonoscopy History of cholecystectomy History of hysterectomy History of tubal ligation History of section History of carpal tunnel surgery of right wrist Family History Father Oral cancer Thyroid cancer Colon cancer Mother JOEL (non-insulin dependent diabetes mellitus in young) Gastric ulcer Paternal Grandfather Colon cancer Paternal Uncle Colon cancer Other Family history of colon cancer in father Social History Housing: House Are you a primary resident care coordinator to a significant other at home: No Alcohol intake: never Patient Tobacco Use Status: Never used Tobacco e-Cigarette/Vaping Use: Never Used Second Hand Smoke Exposure: No service: No Current occupational status: disabled Sexual orientation: Straight/Heterosexual Gender identity: Female Cognitive needs: Yes Hearing needs: No Vision needs: No Questionnaire PHQ-9 Over the last 2 weeks, how often have you been bothered by any of the following problems? 1. Little interest or pleasure in doing things: several days 2. Feeling down, depressed, or hopeless: nearly every day 3. Trouble falling or staying asleep, or sleeping too much: nearly every day 4. Feeling tired or having little energy: several days 5. Poor appetite or overeating: several days 6. Feeling bad about yourself - or that you are a failure or have let yourself or your family down: not at all 7. Trouble concentrating on things, such as reading the newspaper or watching television: not at all 8. Moving or speaking so slowly that other people could have noticed. Or the opposite - being so fidgety or restless that you have been moving around a lot more than usual: not at all 9. Thoughts that you would be better off or of hurting yourself in some way: not at all Total score: 9 Depression Screening Interpretation: Positive Depression Screening Follow-up: Existing condition, In treatment, Community Mental Health Worker F/U and Follow-up Visit Requested Depression Screening Done: Yes 78373 - PHQ-9 Billing: Yes Source: Developed by Drs. Juarez Westfall, Suzie Delarosa, Cornelius Brown and colleagues, with an educational nella from [employer]. Thrive Questionnaire Date Thrive assessed: 05/19/23 AUDIT C Alcohol Use Questionnaire (AUDIT-C) 1. How often do you have a drink containing alcohol?: Never 3. How often do you have six or more drinks on one occasion?: Never Total Score: 0 LALIT-7 AMB Questionnaire LALIT-7 Date LALIT - 7 assessed: 05/19/23 Source: Developed by Drs. Juarez Westfall, Suzie Delarosa, Cornelius Brown and colleagues, with an educational nella from [employer]. Review of Systems Const Denies body aches, Denies chills and Denies fever(s) Eyes Reports no additional complaints ENT Reports no additional complaints Card Denies chest pain, Denies edema, Denies lightheadedness and Denies dyspnea Resp Denies dyspnea GI Reports no additional complaints Reports no additional complaints Musc Reports no additional complaints and Denies abnormal gait Skin/Breast Reports as per HPI Neuro Denies abnormal gait Psych Reports no additional complaints Physical exam (Primary Care) Vital Signs: Last Vital Signs Pulse 74 11/29/23 15:27 BP 130/82 11/29/23 15:27 Pulse Ox 95 11/29/23 15:27 Oxygen Delivery Method Room Air 11/29/23 15:27 BMI result Body Mass Index 46.6 Tobacco/Smoking Status: Tobacco use Status Tobacco use date assessed 09/20/23 11/29/23 15:27 Patient Tobacco Use Status Never used Tobacco 11/29/23 15:27 e-Cigarette/Vaping Use Never Used 11/29/23 15:27 PHQ-9: PHQ-9 Score PHQ-9: Total score 9 11/29/23 15:41 Depression Screening Interpretation: Positive Depression Screening Follow-up: Existing condition, In treatment, Community Mental Health Worker F/U and Follow-up Visit Requested Thrive Assessment: Date of Thrive Assessment Date Thrive assessed 05/19/23 11/29/23 15:27 Const General: cooperative, healthy appearing, comfortable and no acute distress Orientation/consciousness: patient oriented x3 HENMT Head: Yes normocephalic Ears: hearing grossly normal bilaterally General nose exam: Normal external nose present Eyes General: appearance normal, both eyes and all related structures Conjunctivae: conjunctivae normal Neck Neck: Yes full ROM and Yes no lymphadenopathy Chest Other: No discharge from the areola and no skin changes. No mass felt on exam. Tenderness to palpation of lateral aspect of right breast and left axilla Resp Effort & Inspection: normal respiratory effort Auscultation: clear to auscultation bilaterally, no crackles, no rales, no rhonchi and no wheezes Cardio Rate: regular rate Rhythm: regular rhythm Skin General skin exam: no rashes or lesions noted Neuro General: patient oriented x3 Gait exam (Neuro): Normal gait present Extrem General: Yes normal to inspection, Yes full ROM and No edema Psych Affect: normal affect Attitude: cooperative Insight: Good insight present (Psych) Judgement: Good judgement present (Psych) Assessment and Plan Assessment & Plan (1) Pain of right breast: Code(s): N64.4 - Mastodynia Plan: Unclear if the pain is muscular in nature or related to underlying etiology. Ordered for mammogram as well as right breast ultrasound to further evaluate. Continue with pain management with Tylenol and meloxicam as needed. (2) Left foot pain: Code(s): M79.672 - Pain in left foot Plan: Patient has been evaluated by [facility] for left foot and ankle pain and has been receiving injections from them. She does mentioned she had additional imaging completed and we will request these results. She would like a 2nd opinion as she does not feel the injections are working at this time. Referral to [facility] placed today. Orders: Orders MM tomosynthesis screening BI Today N64.4 - Mastodynia, Z12.31 - Encounter for screening mammogram for malignant neoplasm of breast US breast RT limited Today N64.4 - Mastodynia Referrals Orthopedics Referral M25.572 - Pain in left ankle and joints of left foot, M79.672 - Pain in left foot Coding Level of Care Code Est Pt Level 4 (32186) Diagnoses Pain of right breast N64.4 Left foot pain M79.672
== END 2023-11-29 16:05 | disposition home or self-care (01) ==
PROVIDERS: PCP Internal Medicine
DX: N64.4 Mastodynia (principal); M79.672 Pain in left foot
CPT/HCPCS: 99214

== ENCOUNTER → 2023-12-20 09:29 | Outpatient (REF) | payer OTHER, SELFPAY ==
--- NOTE | 2023-12-20 09:33 | ECG_ITS ---
Test Reason : copd Blood Pressure : / mmHG Vent. Rate : 072 BPM Atrial Rate : 072 BPM P-R Int : 128 ms QRS Dur : 136 ms QT Int : 420 ms P-R-T Axes : 027 009 -02 degrees QTc Int : 459 ms Normal sinus rhythm Right bundle branch block Abnormal ECG When compared with ECG of 20-AUG-2023 10:32, No significant change was found Referred By: Bryan Sheehan Electronically Signed By:JANA TUCKER
== END ==
LOC: HO.CARD 09:29
PROVIDERS: PCP Internal Medicine; Visit Provider Hospitalist
DX: J44.9 Chronic obstructive pulmonary disease, unspecified (principal)
CPT/HCPCS: 93005

== ENCOUNTER 2023-12-21 13:55 | Outpatient (AMB) | payer OTHER, SELFPAY ==
--- NOTE | 2023-12-21 14:16 | MHC.OFFVIS ---
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 She had been on Advair both the Diskus in the HFA but resulted in adverse side effects. She can no longer uses medicines. A distant Symbicort and she did start using the medicine but has not been filled at the pharmacy as of yet. She is also using Spiriva. For the last month and have her respiratory status has been getting worse. She has had to go to urgent care and also to the ER twice. She was placed on prednisone twice. She has no better. She still having exacerbations of the breathing specially at nighttime. She has severe spells resulting in nausea and dry heaves. She is very concerned for the fact that she is not getting any better. She also complains of significant postnasal drip that is aggravating her symptoms. She is not sure of his allergy related or cold related. She has not had any blood work or x-rays recently. She did have a sleep study although very limited because it had only recorded a small amount of information. She states that she still has daytime drowsiness. She feels that she has significant snoring. And she does get tired during the daytime with an elevated [place] score of 12/24. We did do allergy testing but she will only tested positive for mild allergy to cockroaches the rest of the rest study was negative and her eosinophils were normal. Therefore she doesn't qualify for biologics. In the meantime she continues to have daytime drowsiness. She did have a sleep study done demonstrating severe sleep apnea. At this point based on her symptoms the patient needs to start CPAP therapy RODERICK. Arrangements will be made with local [email or web address] company to start CPAP therapy at this time. 05/21/2022 the patient is here for a pulmonary follow-up visit. She was doing well until 2 days ago when she started developing worsening cough. At some point her coughing was so significant that she lost her balance and she fell and hurt her right elbow. She definitely at [facility] approve it. The patient has been using her inhalers only with partial resolution of the symptoms. She feels like she is getting a cold and a respiratory illness. In the meantime she does continue to use her CPAP every night. The CPAP therapy continues to be affecting beneficial. She has been using her respiratory medications as prescribed. She was supposed to be on Daliresp for some reason is no longer on her list of medications. Therefore I will responded to the pharmacy. I am hopeful that with the Daliresp we can prevent prednisone for the patient and decrease her exacerbations. 08/11/2022 the patient is here for pulmonary follow-up visit. The patient just recently got back from [place]. When she was there she was sick likely with viral syndrome. She was evaluated urgent care was given prednisone and also course of antibiotics. The patient does have significant cough variant asthma. She has been on a very aggressive regimen including Daliresp in addition to Symbicort and Spiriva. For her cough she does respond well to the Bentson I's and also cough syrup. Will provide her other medications she continues stable. Unfortunately they just get a diagnosis of cancer and her nephew of 3 years old. This caused significant stress and has caused her respiratory symptoms to worsen. Will continue to manage her symptoms. In the meantime she also complains of a pleuritic type of discomfort primarily in the the right lung on the back area specially with taking deep breath. Will go and repeat a chest x-ray to make sure. She will also request allergy testing done to be done again in order to see if she is a candidate for biologic therapy in order to improve her respiratory capacity and asthma treatment. The patient continues use her CPAP every night. CPAP therapy has been affecting beneficial. She does use it for more than 4 hours a night. She has been getting supplies readily. 11/06/2022 the patient is here for a pulmonary follow-up visit. She continues to struggle with productive cough and chronic bronchitis. She is on optimize respiratory therapy at this time. We did blood work assessing her for potential biologics that the patient does not qualify as she does have a new and eosinophil count and normal IgE level. Therefore, will go ahead and start her on azithromycin for chronic bronchitis. She can take that 3 times a week. The patient is also having issues with sinus congestion and chronic sinusitis. She has tolerated Sudafed in the past. We also talked about Neti pot a rinsing as lungs is with distilled water. In 4 2-4 weeks she can try using budesonide to help her with the inflammatory disease. 02/11/2023 the patient is here for pulmonary follow-up visit. The patient has been having a very difficult time of the month of January. Had significant chest tightness cough and wheezing. She did not want to go to the ER. Although around mid January her symptoms got worse with chest discomfort and she called the ambulance with a took her to [facility] because of the chest pain and the possibility of acute coronary syndrome. When she was there she did have blood work done which was all normal and she had an x-ray that was normal and she waited. However, after several hours awaiting she left against medical advice. She still struggling with a cough. Still productive in nature. She has been using her nebulizer frequently. Will go ahead and treat her for subacute bronchitis. If the patient is no better she can always call for further recommendations. 04/19/2023 the patient is here for a pulmonary follow-up visit. She is having hard time with her asthma. She has been using the Symbicort and the Spiriva. Although she does not feel like it is helping her much. She recently had an upper respiratory illness in image resulted in some swelling in the throat area. She had a hard time swallowing also breathing. She has a little better although she still feels that area abnormal. In addition to that she had a fall and she hurt her knee. She has been limping. She did have an x-ray of her knee and will be seeing orthopedic soon. will go ahead and optimize her respiratory therapy. 09/28/2023 the patient is here for a pulmonary follow-up visit. She still struggling with breathing. Has significant coughing spells and the coughing spells caused her to have worsening asthma symptoms and then she states that she develops like a panic attack. When that happens she is tends to freeze and then she needs help with getting her nebulizer treatments ready. Typically her nebulizer does help her but she does need to use it a few times a day. She has also using the Trelegy inhaler. We did talk about other alternatives including biologics although her IgE levels within normal limits and she does not have any evidence of any eosinophilia. I did give her information about test prior. The patient also complains of epigastric discomfort. She has had reflux in the past does not seem to have it as much anymore. Will go ahead and request a barium swallow in case she is having non acid reflux resulting in the coughing worsening asthma symptoms. In addition to that she was following the reflux diet and is going to be sleeping elevated. After the barium swallow patient should also have a GI evaluation. A referral was already placed. At this point will go ahead and start her on azithromycin that which would be a good promotility agent for her to help with GI issues in addition to improving the chronic bronchitis symptoms that she developing with a cough. She should have an EKG done specially since she takes an SSRI make sure that there has no significant QT abnormalities. The patient will go ahead and continue the medicine for about 6-8 weeks and follow-up at that point. If she has no better she can always call. We did give her information about the [facility] that if she has no better that be the other option. 12/21/2023 the patient is here for a pulmonary follow-up visit. Since we last spoke the patient had an asthma attack while in [place]. She was taken to the hospital. they wanted to admit her to the hospital but she was concerned because of lack of insurance in the cost of her hospital bills. Therefore she left against medical advice. She continued prednisone taper along with her nebulizer treatments. She was able to get better. Subsequently she came back to the [facility]. She went on another trip. During that trip she did get a cold and she was concerned about her asthma that started acting up. Therefore, she did start some prednisone again for short course. She continues to go on and off prednisone unfortunately. She does have uncontrolled asthma. She has been medically optimize maximize maximize all her respiratory inhalers. At this point she is still having frequent flare-ups. Therefore, she will be a good candidate for biologics. I do believe that test viral be a good option for her. I am going to requested from her [facility]. The patient had been on azithromycin 3 times a week as well. Her EKG did show a right bundle branch block. This appears to be a chronic finding for her. She can come off the azithromycin anyways at this time. She continues use her CPAP. CPAP therapy has been affecting beneficial. She does try to use it more than 4 hours a night. Sometimes she falls off the routine. I did emphasize to her that is important for her to use it to minimize cardiovascular risk factors. [facility] Medical History Skin lesion Hypertension Left foot pain Chronic cough Right elbow pain Morbid obesity Generalized anxiety disorder Asthma Hypovitaminosis D Mild recurrent major depression Pleuritic chest pain COVID-19 Breast pain, left Sinusitis Low back pain Polyarthralgia Ophthalmoplegic migraine Menieres disease Frequent falls RBBB (right bundle branch block) Leg edema Breast mass, right Left elbow pain Fibromyalgia Ankle pain, right Labial lesion Rectal bleeding H. pylori duodenitis Submandibular lymphadenopathy Chronic neck pain AIRAM (obstructive sleep apnea) Panic attacks Surgical History History of endoscopy History of colonoscopy History of cholecystectomy History of hysterectomy History of tubal ligation History of section History of carpal tunnel surgery of right wrist Family History Father Oral cancer Thyroid cancer Colon cancer Mother NIDDY (non-insulin dependent diabetes mellitus in young) Gastric ulcer Paternal Grandfather Colon cancer Paternal Uncle Colon cancer Other Family history of colon cancer in father Social History Housing: House Are you a primary career coach to a significant other at home: No Alcohol intake: never Patient Tobacco Use Status: Never used Tobacco e-Cigarette/Vaping Use: Never Used Second Hand Smoke Exposure: No service: No Current occupational status: disabled Sexual orientation: Straight/Heterosexual Gender identity: Female Cognitive needs: Yes Hearing needs: No Vision needs: No Review of Systems Const Denies chills, Denies fever(s) and Denies night sweats ENT Denies change in voice, Denies mouth pain, Reports nasal congestion, Reports nasal discharge, Denies sinus pain, Denies sinus pressure and Denies tongue swelling Card Denies chest pain, Denies dyspnea and Reports dyspnea on exertion Resp Reports change in phlegm color, Reports chest congestion, Reports cough, Denies dyspnea, Reports dyspnea on exertion and Reports wheezing GI Denies abdominal pain, Reports dyspepsia and Reports heartburn Musc Reports as per HPI, Reports abnormal gait, Reports arthralgias and Reports joint swelling Neuro Denies Neuro-related abnormal movements and Reports abnormal gait Psych Denies no additional complaints Jacob/Lymph Denies easy bleeding and Denies lymphadenopathy Aller/Immun Denies tongue swelling and Reports wheezing Physical Exam Vital Signs: Last Vital Signs Pulse 72 12/21/23 14:17 Pulse Ox 99 12/21/23 14:17 Oxygen Delivery Method Room Air 12/21/23 14:17 BMI result Body Mass Index 45.7 Const General: alert and awake Orientation/consciousness: patient oriented x3 HEENT Head: Yes normal to inspection Face and sinus: Yes sinuses nontender Mouth: oropharynx normal Throat: Yes posterior oropharynx normal Eyes General: appearance normal, both eyes and all related structures Neck Neck: Yes normal visual inspection, Yes no lymphadenopathy, Yes trachea midline and Yes no JVD Chest Chest palpation & inspection: normal inspection of the chest, normal palpation of entire chest wall and no tenderness Resp Effort & Inspection: normal respiratory effort, no cough and prolonged expiratory phase Auscultation: no wheezes and diminished lung sounds Cardio Palpation: normal PMI Rate: regular rate Rhythm: regular rhythm Heart sounds: no gallops and no murmurs GI Palpation (GI): Soft to palpation, nontender, No hepatosplenomegaly present, no masses and Other GI palpation findings present (Abdomen is obese and protuberant) Auscultation: normal bowel sounds Skin General skin exam: no rashes or lesions noted Neuro General: patient oriented x3 and no focal motor deficits Cranial nerves: Yes CN's II-XII intact bilaterally Extrem General: Yes normal to inspection, Yes no clubbing, cyanosis or edema and Yes no calf tenderness Psych Speech and movement: Normal speech and movement present Affect: Anxious affect present Assessment & Plan Assessment & Plan (1) Asthma: Code(s): J45.909 - Unspecified asthma, uncomplicated Category: Medical Qualifiers: Asthma complication type: uncomplicated Asthma persistence: persistent Asthma severity: severe Qualified Code(s): J45.50 - Severe persistent asthma, uncomplicated (2) AIRAM (obstructive sleep apnea): Comment: (mild AIRAM, AHI 10.1 on 08/22/17 sleep study) Code(s): G47.33 - Obstructive sleep apnea (adult) (pediatric) Category: Medical (3) Cough: Code(s): R05.9 - Cough, unspecified Category: Medical Qualifiers: Cough type: chronic Qualified Code(s): R05.3 - Chronic cough (4) Chronic allergic rhinitis: Code(s): J30.9 - Allergic rhinitis, unspecified Category: Medical (5) Chronic cough: Code(s): R05.3 - Chronic cough Category: Medical Plan continue Trelegy 200 daily stop azithromycin MWF continue Dairesp start Tezspire cough medicine continue nebulizer therapy cough medine: Tessalon pearls, cough syrup continue CPAP therapy, adjusted from 4-12 to 6-10 with ramp 4 consider barium swallow F/U 3-4 months Coding Level of Care Code Est Pt Level 4 (71930) Diagnoses Severe persistent asthma without complication J45.50 Asthma complication type: uncomplicated Asthma persistence: persistent Asthma severity: severe AIRAM (obstructive sleep apnea) G47.33 Chronic cough R05.3 Cough type: chronic Chronic allergic rhinitis J30.9 Chronic cough R05.3 Time Spent (min) 16
[2023-12-21 14:17] VITALS: PULSE 72; O2SAT 99; BMI 45.7
== END 2023-12-21 14:36 | disposition home or self-care (01) ==
PROVIDERS: PCP Internal Medicine; Visit Provider Hospitalist
DX: J45.50 Severe persistent asthma, uncomplicated (principal); G47.33 Obstructive sleep apnea (adult) (pediatric); R05.3 Chronic cough; J30.9 Allergic rhinitis, unspecified
CPT/HCPCS: 99214

== ENCOUNTER → 2023-12-21 13:55 | Outpatient (BNVA) | payer OTHER, SELFPAY | PROVIDERS: PCP Internal Medicine; Visit Provider Hospitalist | DX: J45.50 Severe persistent asthma, uncomplicated (principal); R05.3 Chronic cough; G47.33 Obstructive sleep apnea (adult) (pediatric); J30.9 Allergic rhinitis, unspecified; Z99.89 Dependence on other enabling machines and devices; I45.10 Unspecified right bundle-branch block | CPT/HCPCS: 99212 ==

== ENCOUNTER 2023-12-28 14:51 | Outpatient (REF) | payer OTHER, SELFPAY ==
--- NOTE | ~2023-12-28 | US_ITS ---
EXAMINATION: MM DIAGNOSTIC DIGITAL BREAST TOMOSYNTHESIS, BILATERAL US BREAST LIMITED, RIGHT MAMMOGRAPHY: CLINICAL INFORMATION: 43-year-old female complaining of right breast pain upper outer quadrant radiating to nipple, x2-3 weeks. Also due for bilateral screening. No prior surgeries. Breast cancer in paternal and maternal grandmother age 60's. COMPARISON: Mammography: 12/14/2022, 02/11/2021, 05/09/2020 Ultrasound: left breast 02/11/2021, ultrasound right breast 05/09/2020. TECHNIQUE: Digital breast tomosynthesis is performed in both the craniocaudal and mediolateral oblique views along with computer-aided detection (CAD). Synthesized 2D images are generated from the tomosynthesis. In addition, full field 3-D cleavage view was also obtained. FINDINGS: There are scattered areas of fibroglandular density (ACR BI-RADS breast composition Category b). There are are stable nodular asymmetries in both breasts, predominantly right breast upper outer quadrant and one third, unchanged from prior exams. A slightly more prominent circumscribed bilobed mass is present in the 9:00 axis, anterior depth, for which ultrasound will be performed. 2 Small circumscribed subcentimeter nodular densities in the slightly outer slightly upper left breast posterior one third are stable from numerous prior exams. A few scattered punctate round calcifications again seen in both breasts. No significant change in these from prior exams. No new calcifications are new grouped calcifications. No suspicious masses, developing areas of architectural distortion in either breast. Overall parenchymal pattern is stable from prior exams. No skin or axillary abnormalities. ULTRASOUND: CLINICAL INFORMATION: Right breast pain upper outer quadrant radiating to the nipple. COMPARISON: None relevant. TECHNIQUE: Targeted sonographic evaluation right breast was performed using a high frequency linear transducer. Attention to the upper outer quadrant was given. Selected archived documentation. FINDINGS: RIGHT BREAST: There is a bilobed simple cyst seen 9:00 axis, 5 cm from the nipple, corresponding with the bilobed circumscribed mass seen on right mammography. This is benign. Otherwise, no suspicious masses, additional cystic abnormality, abnormal shadowing, or architectural distortion is identified in the upper outer quadrant of the right breast. Aside from simple cyst, there is no mammographic or sonographic findings to explain right breast pain. Clinical management recommended. US/US breast RT limited mamm only IMPRESSION: -There are no findings suspicious for malignancy in either breast. -Benign bilobed cyst right breast 9:00 axis, no further follow-up recommended. -Stable bilateral benign findings. -No definite explanation sonographically or mammographically for upper outer quadrant right breast pain radiating to nipple. Recommend clinical management and follow-up. -Otherwise, recommend the patient return to routine annual screening. OVERALL ASSESSMENT: Mammography: BI-RADS 2 - Benign Findings Ultrasound: BI-RADS 2 - Benign Findings RECOMMENDATION: 1. Patient should be managed based on the clinical impression. 2. Otherwise, routine annual screening mammography. This patient's information was entered into a reminder system with a target due date for their next mammogram. Electronically signed by: Mayito Hoffman MD 12/28/2023 04:15 PM EDT
== END 2023-12-28 14:52 | disposition home or self-care (01) ==
LOC: HO.MAMMO 14:51
PROVIDERS: PCP Internal Medicine
DX: N64.4 Mastodynia (principal)
CPT/HCPCS: 76642; 77062; 77066

== ENCOUNTER → 2023-12-28 15:00 | Outpatient (BNV) | payer OTHER, SELFPAY | PROVIDERS: PCP Internal Medicine; Visit Provider Radiology Diagnostic Radiology | DX: N64.4 Mastodynia (principal) | CPT/HCPCS: 76642; 77062; 77066 ==

== ENCOUNTER 2024-01-10 15:19 | Outpatient (AMB) | payer OTHER, SELFPAY ==
[2024-01-10 15:33] VITALS: BP 132/70; PULSE 83; O2SAT 97; BMI 43.9
--- NOTE | 2024-01-10 15:33 | MHC.OFFVIS ---
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 She had been on Advair both the Diskus in the HFA but resulted in adverse side effects. She can no longer uses medicines. A distant Symbicort and she did start using the medicine but has not been filled at the pharmacy as of yet. She is also using Spiriva. For the last month and have her respiratory status has been getting worse. She has had to go to urgent care and also to the ER twice. She was placed on prednisone twice. She has no better. She still having exacerbations of the breathing specially at nighttime. She has severe spells resulting in nausea and dry heaves. She is very concerned for the fact that she is not getting any better. She also complains of significant postnasal drip that is aggravating her symptoms. She is not sure of his allergy related or cold related. She has not had any blood work or x-rays recently. She did have a sleep study although very limited because it had only recorded a small amount of information. She states that she still has daytime drowsiness. She feels that she has significant snoring. And she does get tired during the daytime with an elevated [place] score of 12/24. We did do allergy testing but she will only tested positive for mild allergy to cockroaches the rest of the rest study was negative and her eosinophils were normal. Therefore she doesn't qualify for biologics. In the meantime she continues to have daytime drowsiness. She did have a sleep study done demonstrating severe sleep apnea. At this point based on her symptoms the patient needs to start CPAP therapy RODERICK. Arrangements will be made with local [employer] to start CPAP therapy at this time. 05/21/2022 the patient is here for a pulmonary follow-up visit. She was doing well until 2 days ago when she started developing worsening cough. At some point her coughing was so significant that she lost her balance and she fell and hurt her right elbow. She definitely at [facility] approve it. The patient has been using her inhalers only with partial resolution of the symptoms. She feels like she is getting a cold and a respiratory illness. In the meantime she does continue to use her CPAP every night. The CPAP therapy continues to be affecting beneficial. She has been using her respiratory medications as prescribed. She was supposed to be on Daliresp for some reason is no longer on her list of medications. Therefore I will responded to the pharmacy. I am hopeful that with the Daliresp we can prevent prednisone for the patient and decrease her exacerbations. 08/11/2022 the patient is here for pulmonary follow-up visit. The patient just recently got back from [place]. When she was there she was sick likely with viral syndrome. She was evaluated urgent care was given prednisone and also course of antibiotics. The patient does have significant cough variant asthma. She has been on a very aggressive regimen including Daliresp in addition to Symbicort and Spiriva. For her cough she does respond well to the Bentson I's and also cough syrup. Will provide her other medications she continues stable. Unfortunately they just get a diagnosis of cancer and her nephew of 3 years old. This caused significant stress and has caused her respiratory symptoms to worsen. Will continue to manage her symptoms. In the meantime she also complains of a pleuritic type of discomfort primarily in the the right lung on the back area specially with taking deep breath. Will go and repeat a chest x-ray to make sure. She will also request allergy testing done to be done again in order to see if she is a candidate for biologic therapy in order to improve her respiratory capacity and asthma treatment. The patient continues use her CPAP every night. CPAP therapy has been affecting beneficial. She does use it for more than 4 hours a night. She has been getting supplies readily. 11/06/2022 the patient is here for a pulmonary follow-up visit. She continues to struggle with productive cough and chronic bronchitis. She is on optimize respiratory therapy at this time. We did blood work assessing her for potential biologics that the patient does not qualify as she does have a new and eosinophil count and normal IgE level. Therefore, will go ahead and start her on azithromycin for chronic bronchitis. She can take that 3 times a week. The patient is also having issues with sinus congestion and chronic sinusitis. She has tolerated Sudafed in the past. We also talked about Neti pot a rinsing as lungs is with distilled water. In 4 2-4 weeks she can try using budesonide to help her with the inflammatory disease. 02/11/2023 the patient is here for pulmonary follow-up visit. The patient has been having a very difficult time of the month of January. Had significant chest tightness cough and wheezing. She did not want to go to the ER. Although around mid January her symptoms got worse with chest discomfort and she called the ambulance with a took her to [facility] because of the chest pain and the possibility of acute coronary syndrome. When she was there she did have blood work done which was all normal and she had an x-ray that was normal and she waited. However, after several hours awaiting she left against medical advice. She still struggling with a cough. Still productive in nature. She has been using her nebulizer frequently. Will go ahead and treat her for subacute bronchitis. If the patient is no better she can always call for further recommendations. 04/19/2023 the patient is here for a pulmonary follow-up visit. She is having hard time with her asthma. She has been using the Symbicort and the Spiriva. Although she does not feel like it is helping her much. She recently had an upper respiratory illness in image resulted in some swelling in the throat area. She had a hard time swallowing also breathing. She has a little better although she still feels that area abnormal. In addition to that she had a fall and she hurt her knee. She has been limping. She did have an x-ray of her knee and will be seeing orthopedic soon. will go ahead and optimize her respiratory therapy. 09/28/2023 the patient is here for a pulmonary follow-up visit. She still struggling with breathing. Has significant coughing spells and the coughing spells caused her to have worsening asthma symptoms and then she states that she develops like a panic attack. When that happens she is tends to freeze and then she needs help with getting her nebulizer treatments ready. Typically her nebulizer does help her but she does need to use it a few times a day. She has also using the Trelegy inhaler. We did talk about other alternatives including biologics although her IgE levels within normal limits and she does not have any evidence of any eosinophilia. I did give her information about test prior. The patient also complains of epigastric discomfort. She has had reflux in the past does not seem to have it as much anymore. Will go ahead and request a barium swallow in case she is having non acid reflux resulting in the coughing worsening asthma symptoms. In addition to that she was following the reflux diet and is going to be sleeping elevated. After the barium swallow patient should also have a GI evaluation. A referral was already placed. At this point will go ahead and start her on azithromycin that which would be a good promotility agent for her to help with GI issues in addition to improving the chronic bronchitis symptoms that she developing with a cough. She should have an EKG done specially since she takes an SSRI make sure that there has no significant QT abnormalities. The patient will go ahead and continue the medicine for about 6-8 weeks and follow-up at that point. If she has no better she can always call. [facility] if she has no better that be the other option. 12/21/2023 the patient is here for a pulmonary follow-up visit. Since we last spoke the patient had an asthma attack while in [place]. She was taken to the hospital. they wanted to admit her to the hospital but she was concerned because of lack of insurance in the cost of her hospital bills. Therefore she left against medical advice. She continued prednisone taper along with her nebulizer treatments. She was able to get better. Subsequently she came back to the [facility]. She went on another trip. During that trip she did get a cold and she was concerned about her asthma that started acting up. Therefore, she did start some prednisone again for short course. She continues to go on and off prednisone unfortunately. She does have uncontrolled asthma. She has been medically optimize maximize maximize all her respiratory inhalers. At this point she is still having frequent flare-ups. Therefore, she will be a good candidate for biologics. I do believe that test viral be a good option for her. I am going to requested from her [employer]. The patient had been on azithromycin 3 times a week as well. Her EKG did show a right bundle branch block. This appears to be a chronic finding for her. She can come off the azithromycin anyways at this time. She continues use her CPAP. CPAP therapy has been affecting beneficial. She does try to use it more than 4 hours a night. Sometimes she falls off the routine. I did emphasize to her that is important for her to use it to minimize cardiovascular risk factors. 01/10/2024 the patient is here for sick visit. She was just here about a month ago. She states that that after the visit she went home she started coughing. She started developing significant chest tightness. She started using [id number] medications. Ultimately she did have some leftover prednisone she took that with some partial relief. And then she did call the office and we did send her cough medication which she did take. Although has not been working for her. Her cough is pretty severe. His causing her to be up at nighttime. She states that she had never been this sick with her cough although she has had a chronic cough most of her life. Denies any fevers or chills. She does complaint of the headache because of all the coughing. Sometimes she does develop some stridor. I suspect that she has Will been cough. Although could also be a postviral bacterial pneumonia. Therefore going to treat her with combination antibiotics and also she will receive Solu-Medrol IM x1 and then going prednisone course. The patient will have a chest x-ray to this well. She will continue with a cough suppressant. The patient will start the therapy and will call if no better in 48 hours. [facility] Medical History Skin lesion Hypertension Left foot pain Chronic cough Right elbow pain Morbid obesity Generalized anxiety disorder Asthma Hypovitaminosis D Mild recurrent major depression Pleuritic chest pain COVID-19 Breast pain, left Sinusitis Low back pain Polyarthralgia Ophthalmoplegic migraine Menieres disease Frequent falls RBBB (right bundle branch block) Leg edema Breast mass, right Left elbow pain Fibromyalgia Ankle pain, right Labial lesion Rectal bleeding H. pylori duodenitis Submandibular lymphadenopathy Chronic neck pain AIRAM (obstructive sleep apnea) Panic attacks Surgical History History of endoscopy History of colonoscopy History of cholecystectomy History of hysterectomy History of tubal ligation History of section History of carpal tunnel surgery of right wrist Family History Father Oral cancer Thyroid cancer Colon cancer Mother NIDDY (non-insulin dependent diabetes mellitus in young) Gastric ulcer Paternal Grandfather Colon cancer Paternal Uncle Colon cancer Other Family history of colon cancer in father Social History Housing: House Are you a primary child care giver to a significant other at home: No Alcohol intake: never Patient Tobacco Use Status: Never used Tobacco e-Cigarette/Vaping Use: Never Used Second Hand Smoke Exposure: No service: No Current occupational status: disabled Sexual orientation: Straight/Heterosexual Gender identity: Female Cognitive needs: Yes Hearing needs: No Vision needs: No Review of Systems Const Denies chills, Reports daytime sleepiness, Reports difficulty sleeping, Denies fever(s), Reports headache(s), Reports malaise and Denies night sweats ENT Denies change in voice, Reports headache(s), Denies mouth pain, Reports nasal congestion, Reports nasal discharge, Denies sinus pain, Denies sinus pressure and Denies tongue swelling Card Denies chest pain, Denies dyspnea and Reports dyspnea on exertion Resp Reports change in phlegm color, Reports chest congestion, Reports cough, Reports hemoptysis, Reports excessive phlegm production, Denies dyspnea, Reports dyspnea on exertion and Reports wheezing GI Denies abdominal pain, Reports dyspepsia and Reports heartburn Musc Reports as per HPI, Reports abnormal gait, Reports arthralgias and Reports joint swelling Neuro Denies Neuro-related abnormal movements, Reports abnormal gait and Reports headache(s) Psych Denies no additional complaints Jacob/Lymph Denies easy bleeding and Denies lymphadenopathy Aller/Immun Denies tongue swelling and Reports wheezing Physical Exam Vital Signs: Last Vital Signs Pulse 83 01/10/24 15:33 BP 132/70 01/10/24 15:33 Pulse Ox 97 01/10/24 15:33 Oxygen Delivery Method Room Air 01/10/24 15:33 BMI result Body Mass Index 43.9 Const General: alert and awake Orientation/consciousness: patient oriented x3 HEENT Head: Yes normal to inspection Face and sinus: Yes sinuses nontender Mouth: oropharynx normal Throat: Yes posterior oropharynx normal Eyes General: appearance normal, both eyes and all related structures Neck Neck: Yes normal visual inspection, Yes no lymphadenopathy, Yes trachea midline and Yes no JVD Chest Chest palpation & inspection: normal inspection of the chest, normal palpation of entire chest wall and no tenderness Resp Effort & Inspection: normal respiratory effort, Actively coughing Quality: actively coughing and prolonged expiratory phase Auscultation: wheezes and diminished lung sounds Cardio Palpation: normal PMI Rate: regular rate Rhythm: regular rhythm Heart sounds: no gallops and no murmurs GI Palpation (GI): Soft to palpation, nontender, No hepatosplenomegaly present, no masses and Other GI palpation findings present (Abdomen is obese and protuberant) Auscultation: normal bowel sounds Skin General skin exam: no rashes or lesions noted Neuro General: patient oriented x3 and no focal motor deficits Cranial nerves: Yes CN's II-XII intact bilaterally Extrem General: Yes normal to inspection, Yes no clubbing, cyanosis or edema and Yes no calf tenderness Psych Speech and movement: Normal speech and movement present Affect: Anxious affect present Office Meds methylprednisolone sod suc(PF) 125 mg/2 mL solution for injection Performing Provider: Bryan Sheehan MD Performing Location: [facility] Administered by: Elham Fraga LPN on 01/10/24 16:10 Dose Route Admin Location Dispensed Lot Number Expiration Date [facility] [employer] 125 mg IM right buttock 2 ea [id number] 12/03/25 7766-8243-80 [employer] Assessment & Plan Assessment & Plan (1) Asthma: Code(s): J45.909 - Unspecified asthma, uncomplicated Category: Medical Qualifiers: Asthma complication type: with acute exacerbation Asthma persistence: persistent Asthma severity: severe Qualified Code(s): J45.51 - Severe persistent asthma with (acute) exacerbation (2) AIRAM (obstructive sleep apnea): Comment: (mild AIRAM, AHI 10.1 on 08/22/17 sleep study) Code(s): G47.33 - Obstructive sleep apnea (adult) (pediatric) Category: Medical (3) Cough: Code(s): R05.9 - Cough, unspecified Category: Medical Qualifiers: Cough type: chronic Qualified Code(s): R05.3 - Chronic cough (4) Chronic allergic rhinitis: Code(s): J30.9 - Allergic rhinitis, unspecified Category: Medical (5) Chronic cough: Code(s): R05.3 - Chronic cough Category: Medical (6) Tracheobronchitis: Code(s): J40 - Bronchitis, not specified as acute or chronic Category: Medical Plan start Augmentin/Azithromycin start Solumedrol->prednisone taper continue Trelegy 200 daily stop azithromycin MWF continue Dairesp start Tezspire cough medicine continue nebulizer therapy cough medine: Tessalon pearls, cough syrup holding CPAP therapy, adjusted from 4-12 to 6-10 with ramp 4 consider barium swallow F/U 3-4 months Orders: Orders XR chest 2V Today G47.33 - Obstructive sleep apnea (adult) (pediatric), J30.9 - Allergic rhinitis, unspecified, R05.3 - Chronic cough AMB Methylprednisolone Sod Succ Injection Today J30.9 - Allergic rhinitis, unspecified, R05.3 - Chronic cough Medications: New amoxicillin-pot clavulanate 875-125 mg 1 tab PO BID 20 tabs 0RF 10 days prednisone PO daily; Take 6 tabs daily x 3 days, then 5 tabs x 3 days, then 4 tabs x 3 days, then 3 tabs x 3 days, then 2 tabs daily x 3 days, then 1 tab x 3 days to complete. 63 tabs 0RF 18 days codeine-guaifenesin 10-100 mg/5 mL 10 mL PO Q6H PRN 300 mL 0RF cough 10 days azithromycin 500 mg PO DAILY 5 tabs 0RF 5 days Coding Level of Care Code Est Pt Level 4 (54706) Diagnoses Severe persistent asthma with acute exacerbation J45.51 Asthma complication type: with acute exacerbation Asthma persistence: persistent Asthma severity: severe AIRAM (obstructive sleep apnea) G47.33 Chronic cough R05.3 Cough type: chronic Chronic allergic rhinitis J30.9 Chronic cough R05.3 Tracheobronchitis J40 Time Spent (min) 17
== END 2024-01-10 16:27 | disposition home or self-care (01) ==
PROVIDERS: PCP Internal Medicine; Visit Provider Hospitalist
DX: J45.51 Severe persistent asthma with (acute) exacerbation (principal); G47.33 Obstructive sleep apnea (adult) (pediatric); R05.3 Chronic cough; J30.9 Allergic rhinitis, unspecified; J40 Bronchitis, not specified as acute or chronic
CPT/HCPCS: 99214

== ENCOUNTER 2024-01-10 15:19 | Outpatient (REF) | payer OTHER, SELFPAY ==
--- NOTE | ~2024-01-10 | XR_ITS ---
EXAMINATION: XR CHEST 2 VIEWS CLINICAL INFORMATION: Chronic cough R05.3. COMPARISON: XR Chest 04/16/2023 TECHNIQUE: 2 views of the chest were obtained. FINDINGS: No significant abnormality is noted involving the heart, lungs, mediastinum, bony thorax or soft tissues. XR/XR chest 2V IMPRESSION: Unremarkable examination. Electronically signed by: Ashok Garcia MD 03/20/2024 07:21 PM EST
== END 2024-01-10 15:20 | disposition home or self-care (01) ==
LOC: HO.XRAY 15:19
PROVIDERS: PCP Internal Medicine; Visit Provider Hospitalist
DX: J45.51 Severe persistent asthma with (acute) exacerbation (principal); G47.33 Obstructive sleep apnea (adult) (pediatric); R05.3 Chronic cough; J30.9 Allergic rhinitis, unspecified; J40 Bronchitis, not specified as acute or chronic
CPT/HCPCS: 71046; 96372; 99212; J2919

== ENCOUNTER 2024-02-14 14:12 | Outpatient (AMB) | payer OTHER, SELFPAY ==
--- NOTE | 2024-02-14 14:55 | AM.OFFVISNUR ---
Intake Visit Reasons: FluShot Allergies Iodinated Contrast Media [IV CONTRAST] Allergy (Severe, Verified 01/10/24 15:35) ANAPHYLAXIS cyclobenzaprine [From FLEXERIL] Allergy (Intermediate, Verified 01/10/24 15:35) NUMBNESS gadobutrol [From GADAVIST] Allergy (Intermediate, Verified 01/10/24 15:35) DIFFICULTY BREATHING perfume [PERFUME] Allergy (Intermediate, Verified 01/10/24 15:35) TRIGGERS ASTHMA prednisone Allergy (Intermediate, Verified 01/10/24 15:35) swelling Office Procedures Flu Questionnaire Does the patient have a severe egg allergy?: No Does the patient have severe life threatening allergies?: No Does the patient have a fever or illness today?: No Has the patient ever had Guillain-Clear Syndrome?: No Has the patient ever had any past reaction to a flu shot?: No Assessment & Plan Assessment & Plan Orders: Orders Influenza [id number] Immunization Today Z23 - Encounter for immunization Medications: New Fluarix Triv [id number] (PF) (flu vacc [id number] 6mos up(PF)) 0.5 mL IM ONCE 0.5 mL 0RF NS Z23 - Encounter for immunization
== END 2024-02-14 14:57 | disposition home or self-care (01) ==
PROVIDERS: PCP Internal Medicine; Visit Provider Internal Medicine
DX: Z23 Encounter for immunization (principal)

== ENCOUNTER → 2024-02-14 14:12 | Outpatient (BNVA) | payer OTHER, SELFPAY | PROVIDERS: PCP Internal Medicine; Visit Provider Internal Medicine | DX: Z23 Encounter for immunization (principal) | CPT/HCPCS: 90471; 90656 ==

== ENCOUNTER 2024-04-07 08:57 | Outpatient (AMB) | payer OTHER, SELFPAY ==
[2024-04-07 09:01] VITALS: BP 124/84; PULSE 76; O2SAT 99; BMI 43.2
--- NOTE | 2024-04-07 09:01 | A.OFFVIS_ITS ---
Vital Signs 04/07/24 09:01 Height 5 ft 6 in Weight 267 lb 13.786 oz BMI 43.2 BP 124/84 Blood Pressure Location Lt brachial Position Sitting Pulse 76 Pulse Source Pulse Oximeter Pulse Oximetry (%) 99 Oxygen Delivery Method Room Air Intake Visit Reasons: Asthma Allergies Iodinated Contrast Media [IV CONTRAST] Allergy (Severe, Verified 04/07/24 09:03) ANAPHYLAXIS cyclobenzaprine [From FLEXERIL] Allergy (Intermediate, Verified 04/07/24 09:03) NUMBNESS gadobutrol [From GADAVIST] Allergy (Intermediate, Verified 04/07/24 09:03) DIFFICULTY BREATHING perfume [PERFUME] Allergy (Intermediate, Verified 04/07/24 09:03) TRIGGERS ASTHMA prednisone Allergy (Intermediate, Verified 04/07/24 09:03) swelling HPI Comments Details: The patient is a 44 year old woman with a known history of severe persistent asthma. She had been on Advair both the Diskus in the HFA but resulted in adverse side effects. She can no longer uses medicines. A distant Symbicort and she did start using the medicine but has not been filled at the pharmacy as of yet. She is also using Spiriva. For the last month and have her respiratory status has been getting worse. She has had to go to urgent care and also to the ER twice. She was placed on prednisone twice. She has no better. She still having exacerbations of the breathing specially at nighttime. She has severe spells resulting in nausea and dry heaves. She is very concerned for the fact that she is not getting any better. She also complains of significant postnasal drip that is aggravating her symptoms. She is not sure of his allergy related or cold related. She has not had any blood work or x-rays recently. She did have a sleep study although very limited because it had only recorded a small amount of information. She states that she still has daytime drowsiness. She feels that she has significant snoring. And she does get tired during the daytime with an elevated [place] score of 12/24. We did do allergy testing but she will only tested positive for mild allergy to cockroaches the rest of the rest study was negative and her eosinophils were normal. Therefore she doesn't qualify for biologics. In the meantime she continues to have daytime drowsiness. She did have a sleep study done demonstrating severe sleep apnea. At this point based on her symptoms the patient needs to start CPAP therapy RODERICK. Arrangements will be made with local [employer] company to start CPAP therapy at this time. 05/21/2022 the patient is here for a pulmonary follow-up visit. She was doing well until 2 days ago when she started developing worsening cough. At some point her coughing was so significant that she lost her balance and she fell and hurt her right elbow. She definitely at [facility] approve it. The patient has been using her inhalers only with partial resolution of the symptoms. She feels like she is getting a cold and a respiratory illness. In the meantime she does continue to use her CPAP every night. The CPAP therapy continues to be affecting beneficial. She has been using her respiratory medications as prescribed. She was supposed to be on Daliresp for some reason is no longer on her list of medications. Therefore I will responded to the pharmacy. I am hopeful that with the Daliresp we can prevent prednisone for the patient and decrease her exacerbations. 08/11/2022 the patient is here for pulmonary follow-up visit. The patient just recently got back from [place]. When she was there she was sick likely with viral syndrome. She was evaluated urgent care was given prednisone and also course of antibiotics. The patient does have significant cough variant asthma. She has been on a very aggressive regimen including Daliresp in addition to S ymbicort and Spiriva. For her cough she does respond well to the Bentson I's and also cough syrup. Will provide her other medications she continues stable. Unfortunately they just get a diagnosis of cancer and her nephew of 3 years old. This caused significant stress and has caused her respiratory symptoms to worsen. Will continue to manage her symptoms. In the meantime she also complains of a pleuritic type of discomfort primarily in the the right lung on the back area specially with taking deep breath. Will go and repeat a chest x- ray to make sure. She will also request allergy testing done to be done again in order to see if she is a candidate for biologic therapy in order to improve her respiratory capacity and asthma treatment. The patient continues use her CPAP every night. CPAP therapy has been affecting beneficial. She does use it for more than 4 hours a night. She has been getting supplies readily. 11/06/2022 the patient is here for a pulmonary follow-up visit. She continues to struggle with productive cough and chronic bronchitis. She is on optimize respiratory therapy at this time. We did blood work assessing her for potential biologics that the patient does not qualify as she does have a new and eosinophil count and normal IgE level. Therefore, will go ahead and start her on azithromycin for chronic bronchitis. She can take that 3 times a week. The patient is also having issues with sinus congestion and chronic sinusitis. She has tolerated Sudafed in the past. We also talked about Neti pot a rinsing as lungs is with distilled water. In 4 2-4 weeks she can try using budesonide to help her with the inflammatory disease. 02/11/2023 the patient is here for pulmonary follow-up visit. The patient has been having a very difficult time of the month of January. Had significant chest tightness cough and wheezing. She did not want to go to the ER. Although around mid January her symptoms got worse with chest discomfort and she called the ambulance with a took her to [facility] because of the chest pain and the possibility of acute coronary syndrome. When she was there she did have blood work done which was all normal and she had an x-ray that was normal and she waited. However, after several hours awaiting she left against medical advice. She still struggling with a cough. Still productive in nature. She bennett s been using her nebulizer frequently. Will go ahead and treat her for subacute bronchitis. If the patient is no better she can always call for further recommendations. 04/19/2023 the patient is here for a pulmonary follow-up visit. She is having hard time with her asthma. She has been using the Symbicort and the Spiriva. Although she does not feel like it is helping her much. She recently had an upper respiratory illness in image resulted in some swelling in the throat area. She had a hard time swallowing also breathing. She has a little better although she still feels that area abnormal. In addition to that she had a fall and she hurt her knee. She has been limping. She did have an x-ray of her knee and will be seeing orthopedic soon. will go ahead and optimize her respiratory therapy. 09/28/2023 the patient is here for a pulmonary follow-up visit. She still struggling with breathing. Has significant coughing spells and the coughing spells caused her to have worsening asthma symptoms and then she states that she develops like a panic attack. When that happens she is tends to freeze and then she needs help with getting her nebulizer treatments ready. Typically her nebulizer does help her but she does need to use it a few times a day. She has also using the Trelegy inhaler. We did talk about other alternatives including biologics although her IgE levels within normal limits and she does not have any evidence of any eosinophilia. I did give her information about test prior. The patient also complains of epigastric discomfort. She has had reflux in the past does not seem to have it as much anymore. Will go ahead and request a barium swallow in case she is having non acid reflux resulting in the coughing worsening asthma symptoms. In addition to that she was following the reflux diet and is going to be sleeping elevated. After the barium swallow patient should also have a GI evaluation. A referral was already placed. At this point will go ahead and start her on azithromycin that which would be a good promotility agent for her to help with GI issues in addition to improving the chronic bronchitis symptoms that she developing with a cough. She should have an EKG done specially since she takes an SSRI make sure that there has no significant QT abnormalities. The patient will go ahead and continue the medicine for about 6-8 weeks and follow-up at that point. If she has no better she can always call. [facility] if she has no better that be the other option. 12/21/2023 the patient is here for a pulmonary follow-up visit. Since we last spoke the patient had an asthma attack while in [place]. She was taken to the hospital. they wanted to admit her to the hospital but she was concerned because of lack of insurance in the cost of her hospital bills. Therefore she left against medical advice. She continued prednisone taper along with her nebulizer treatments. She was able to get better. Subsequently she came back to the [facility]. She went on another trip. During that trip she did get a cold and she was concerned about her asthma that started acting up. Therefore, she did start some prednisone again for short course. She continues to go on and off prednisone unfortunately. She does have uncontrolled asthma. She has been medically optimize maximize maximize all her respiratory inhalers. At this point she is still having frequent flare-ups. Therefore, she will be a good candidate for biologics. I do believe that test viral be a good option for her. I am going to requested from her [employer] company. The patient had been on azithromycin 3 times a week as well. Her EKG did show a right bundle branch block. This appears to be a chronic finding for her. She can come off the azithromycin anyways at this time. She continues use her CPAP. CPAP therapy has been affecting beneficial. She does try to use it more than 4 hours a night. Sometimes she falls off the routine. I did emphasize to her that is important for her to use it to minimize cardiovascular risk factors. 01/10/2024 the patient is here for sick visit. She was just here about a month ago. She states that that after the visit she went home she started coughing. She started developing significant chest tightness. She started using [id number] medications. Ultimately she did have some leftover prednisone she took that with some partial relief. And then she did call the office and we did send her cough medication which she did take. Although has not been working for her. Her cough is pretty severe. His causing her to be up at nighttime. She states that she had never been this sick with her cough although she has had a chronic cough most of her life. Denies any fevers or chills. She does complaint of the headache because of all the coughing. Sometimes she does develop some stridor. I suspect that she has Will been cough. Although could also be a postviral bacterial pneumonia. Therefore going to treat her with combination antibiotics and also she will receive Solu-Medrol IM x1 and then going prednisone course. The patient will have a chest x-ray to this well. She will continue with a cough suppressant. The patient will start the therapy and will call if no better in 48 hours. 04/07/2024 the patient is here for a sick visit. She started developing a cough again. Productive in nature. Complains of sinus pressure. Also feels like her asthma is not controlled. She has been using her respiratory medicines. Right now she is not wheezing. Sounds to be more of sinusitis. She also was supposed to start Tezspire. She has not done as of now. She is going to go ahead and call to make sure that it scheduled in order for her to start her bio logic therapy. Is the patient has no more she will call for further evaluation. For now she will continue with current respiratory regimen. [facility] Medical History Skin lesion Hypertension Left foot pain Chronic cough Right elbow pain Morbid obesity Generalized anxiety disorder Asthma Hypovitaminosis D Mild recurrent major depression Pleuritic chest pain COVID-19 Breast pain, left Sinusitis Low back pain Polyarthralgia Ophthalmoplegic migraine Menieres disease Frequent falls RBBB (right bundle branch block) Leg edema Breast mass, right Left elbow pain Fibromyalgia Ankle pain, right Labial lesion Rectal bleeding H. pylori duodenitis Submandibular lymphadenopathy Chronic neck pain AIRAM (obstructive sleep apnea) Panic attacks Surgical History History of endoscopy History of colonoscopy History of cholecystectomy History of hysterectomy History of tubal ligation History of section History of carpal tunnel surgery of right wrist Family History Father Oral cancer Thyroid cancer Colon cancer Mother NIDDY (non-insulin dependent diabetes mellitus in young) Gastric ulcer Paternal Grandfather Colon cancer Paternal Uncle Colon cancer Other Family history of colon cancer in father Social History Housing: House Are you a primary health care specialist to a significant other at home: No Alcohol intake: never Patient Tobacco Use Status: Never used Tobacco e-Cigarette/Vaping Use: Never Used Second Hand Smoke Exposure: No service: No Current occupational status: disabled Sexual orientation: Straight/Heterosexual Gender identity: Female Cognitive needs: Yes Hearing needs: No Vision needs: No Review of Systems Const Denies chills, Reports daytime sleepiness, Reports difficulty sleeping, Denies fever(s), Reports headache(s), Reports malaise and Denies night sweats ENT Denies change in voice, Reports headache(s), Denies mouth pain, Reports nasal congestion, Reports nasal discharge, Denies sinus pain, Denies sinus pressure and Denies tongue swelling Card Denies chest pain, Denies dyspnea and Reports dyspnea on exertion Resp Reports change in phlegm color, Reports chest congestion, Reports cough, Reports hemoptysis, Reports excessive phlegm production, Denies dyspnea, Reports dyspnea on exertion and Reports wheezing GI Denies abdominal pain, Reports dyspepsia and Reports heartburn Musc Reports as per HPI, Reports abnormal gait, Reports arthralgias and Reports joint swelling Neuro Denies Neuro-related abnormal movements, Reports abnormal gait and Reports headache(s) Psych Denies no additional complaints Jacob/Lymph Denies easy bleeding and Denies lymphadenopathy Aller/Immun Denies tongue swelling and Reports wheezing Physical Exam Vital Signs: Last Vital Signs Pulse 76 04/07/24 09:01 BP 124/84 04/07/24 09:01 Pulse Ox 99 04/07/24 09:01 Oxygen Delivery Method Room Air 04/07/24 09:01 BMI result Body Mass Index 43.2 Const General: alert and awake Orientation/consciousness: patient oriented x3 HEENT Head: Yes normal to inspection Face and sinus: Yes sinuses nontender Mouth: oropharynx normal Throat: Yes posterior oropharynx normal Eyes General: appearance normal, both eyes and all related structures Neck Neck: Yes normal visual inspection, Yes no lymphadenopathy, Yes trachea midline and Yes no JVD Chest Chest palpation & inspection: normal inspection of the chest, normal palpation of entire chest wall and no tenderness Resp Effort & Inspection: normal respiratory effort, Actively coughing Quality: actively coughing and No prolonged expiratory phase Auscultation: no wheezes and diminished lung sounds Cardio Palpation: normal PMI Rate: regular rate Rhythm: regular rhythm Heart sounds: no gallops and no murmurs GI Palpation (GI): Soft to palpation, nontender, No hepatosplenomegaly present, no masses and Other GI palpation findings present (Abdomen is obese and protuberant) Auscultation: normal bowel sounds Skin General skin exam: no rashes or lesions noted Neuro General: patient oriented x3 and no focal motor deficits Cranial nerves: Yes CN's II-XII intact bilaterally Extrem General: Yes normal to inspection, Yes no clubbing, cyanosis or edema and Yes no calf tenderness Psych Speech and movement: Normal speech and movement present Affect: Anxious affect present Assessment & Plan Assessment & Plan (1) Asthma: Code(s): J45.909 - Unspecified asthma, uncomplicated Category: Medical Qualifiers: Asthma complication type: uncomplicated Asthma persistence: persistent Asthma severity: severe Qualified Code(s): J45.50 - Severe persistent asthma, uncomplicated (2) Sinusitis: Code(s): J32.9 - Chronic sinusitis, unspecified Category: Medical Qualifiers: Sinusitis location: maxillary Chronicity: subacute Qualified Code(s): J01.00 - Acute maxillary sinusitis, unspecified (3) AIRAM (obstructive sleep apnea): Comment: (mild AIRAM, AHI 10.1 on 08/22/17 sleep study) Code(s): G47.33 - Obstructive sleep apnea (adult) (pediatric) Category: Medical (4) Cough: Code(s): R05.9 - Cough, unspecified Category: Medical Qualifiers: Cough type: chronic Qualified Code(s): R05.3 - Chronic cough (5) Chronic allergic rhinitis: Code(s): J30.9 - Allergic rhinitis, unspecified Category: Medical (6) Chronic cough: Code(s): R05.3 - Chronic cough Category: Medical (7) Tracheobronchitis: Code(s): J40 - Bronchitis, not specified as acute or chronic Category: Medical Plan continue Trelegy 200 daily continue Dairesp start Tezspire cough medicine continue nebulizer therapy cough medine: Tessalon pearls, cough syrup holding CPAP therapy, adjusted from 4-12 to 6-10 with ramp 4 consider barium swallow F/U 3-4 months Medications: New codeine-guaifenesin 10-100 mg/5 mL 10 mL PO Q6H PRN 300 mL 0RF cough 10 days levofloxacin 500 mg PO DAILY 14 tabs 0RF 14 days oxymetazoline 0.05% (Afrin (oxymetazoline)) 2 sprays intranasal Q12H PRN 22 mL 0RF nasal congestion 5 days Coding Level of Care Code Est Pt Level 4 (41737) Diagnoses Severe persistent asthma without complication J45.50 Asthma complication type: uncomplicated Asthma persistence: persistent Asthma severity: severe Subacute maxillary sinusitis J01.00 Sinusitis location: maxillary Chronicity: subacute AIRAM (obstructive sleep apnea) G47.33 Chronic cough R05.3 Cough type: chronic Chronic allergic rhinitis J30.9 Chronic cough R05.3 Tracheobronchitis J40 Time Spent (min) 16
== END 2024-04-07 09:20 | disposition home or self-care (01) ==
PROVIDERS: PCP Internal Medicine; Visit Provider Hospitalist
DX: J45.50 Severe persistent asthma, uncomplicated (principal); J01.00 Acute maxillary sinusitis, unspecified; G47.33 Obstructive sleep apnea (adult) (pediatric); R05.3 Chronic cough; J30.9 Allergic rhinitis, unspecified; J40 Bronchitis, not specified as acute or chronic
CPT/HCPCS: 99214

== ENCOUNTER → 2024-04-07 08:57 | Outpatient (BNVA) | payer OTHER, SELFPAY | PROVIDERS: PCP Internal Medicine; Visit Provider Hospitalist | DX: J45.50 Severe persistent asthma, uncomplicated (principal); J01.00 Acute maxillary sinusitis, unspecified; J40 Bronchitis, not specified as acute or chronic; J30.9 Allergic rhinitis, unspecified; G47.33 Obstructive sleep apnea (adult) (pediatric); R05.3 Chronic cough | CPT/HCPCS: 99212 ==

== ENCOUNTER 2024-05-02 16:14 | Outpatient (AMB) | payer OTHER, SELFPAY ==
--- NOTE | 2024-05-02 16:23 | MHC.PC.OV ---
Vital Signs 05/02/24 16:25 Height 5 ft 6 in Weight 268 lb BMI 43.3 BP 120/90 H Blood Pressure Location Lt brachial Position Sitting Intake Visit Reasons: Annual Exam Intake Note: Patient here for a physical exam Teenage Program Director Required: Yes Teenage Program Director Language: Sample Preparation Supervisor Name: Trisha Aaron MD Information Interpreted: non-clinical & clinical Accompanied by: Credit Office Manager Allergies Iodinated Contrast Media [IV CONTRAST] Allergy (Severe, Verified 05/02/24 16:34) ANAPHYLAXIS cyclobenzaprine [From FLEXERIL] Allergy (Intermediate, Verified 05/02/24 16:34) NUMBNESS gadobutrol [From GADAVIST] Allergy (Intermediate, Verified 05/02/24 16:34) DIFFICULTY BREATHING perfume [PERFUME] Allergy (Intermediate, Verified 05/02/24 16:34) TRIGGERS ASTHMA prednisone Allergy (Intermediate, Verified 05/02/24 16:34) swelling Medication List - Last Reconciled 05/02/24 by Trisha Aaron MD albuterol sulfate 2.5 mg (3 mL) inhalation Q4H PRN 30 days albuterol sulfate 90 mcg/actuation 2 inhalations inhalation Q6H PRN 30 days azelastine 2 sprays intranasal BID 30 days azithromycin 250 mg PO 3XW 28 days benzonatate 200 mg PO BID PRN 30 days cholecalciferol (vitamin D3) 50 mcg PO DAILY 90 days clonazepam 1 mg PO BID PRN codeine-guaifenesin 10-100 mg/5 mL 10 mL PO Q6H PRN 10 days codeine-guaifenesin 10-100 mg/5 mL 10 mL PO Q6H PRN 10 days codeine-guaifenesin 10-100 mg/5 mL 10 mL PO Q6H PRN 10 days commode As directed fluticasone propionate 50 mcg/actuation (Flonase Allergy Relief) 1 spray intranasal DAILY 30 days ekisnjkqzjw-erkeefbvl-owrnkqzx 200-62.5-25 mcg (Trelegy Ellipta) 1 inh inhalation DAILY 30 days hydrochlorothiazide 25 mg PO QAM hydroxyzine HCl 50 mg PO BID ibuprofen 600 mg PO Q8H PRN 10 days levofloxacin 500 mg PO DAILY 14 days meclizine 25 mg PO TID PRN 7 days meloxicam 15 mg PO DAILY mirabegron ER (Myrbetriq) 50 mg PO DAILY 90 days montelukast 10 mg PO DAILY nabumetone 500 mg PO BID nebulizers (AeroEclipse II Nebulizer) As directed ondansetron 8 mg PO Q8H oxymetazoline 0.05% (Afrin (oxymetazoline)) 2 sprays intranasal Q12H PRN 5 days pantoprazole 40 mg PO DAILY 90 days prednisone PO daily; Take 6 tabs daily x 3 days, then 5 tabs x 3 days, then 4 tabs x 3 days, then 3 tabs x 3 days, then 2 tabs daily x 3 days, then 1 tab x 3 days to complete. 18 days pregabalin 150 mg PO BID 30 days pseudoephedrine HCl ER (12 Hour Decongestant ER) 120 mg PO Q12H roflumilast 500 mcg PO DAILY Shower Chair As directed sucralfate (Carafate) 10 mL PO BID 20 days Symbicort 160-4.5 mcg/actuation (budesonide-formoterol) 2 puffs inhalation BID 30 days NS tiotropium bromide 2.5 mcg/actuation (Spiriva Respimat) 2 puffs PO DAILY tizanidine mg PO tramadol 50 mg PO Q6H PRN 30 days walker As directed zolpidem 10 mg PO BEDTIME PRN Tobacco use date assessed: 05/02/24 Dental Screening Dental Screen Date: 05/02/24 Did you have a dental visit in the last 12 months?: No Did you have a dental problem in the last 6 months where you did not have access to dental care?: No Was dental information given to patient?: Patient has dentist HPI HPI Comments History of Present Illness Details This is a 44-year-old female with mild major depression and morbid obesity that comes accompanied by healthcare applications analyst for her physical exam. Tdap vaccine done about 9 years ago. Mammogram done last year. Hysterectomy done 2020. Colonoscopy done less than 10 years ago. On medication for depression and follow by Psychiatry. She is morbidly obese with a BMI of 43.3 and said has trying boulevard glassware replacer and weight management in the past with no significant improvement. Would like to try GLP 1 agonist but does not have any history of heart attack or stroke and insurance will not be approving it. No chest pain or shortness on breath. Has fibromyalgia and needs a lot of assistance in basic activities of daily living such as bathing, hair washing, toileting and also assistance in cleaning, meal prep and transportation. [facility] Medical History (Updated 05/02/24 @ 16:53 by Trisha Aaron MD) Skin lesion Hypertension Left foot pain Chronic cough Right elbow pain Morbid obesity Generalized anxiety disorder Asthma Hypovitaminosis D Mild recurrent major depression Pleuritic chest pain COVID-19 Breast pain, left Sinusitis Low back pain Polyarthralgia Ophthalmoplegic migraine Menieres disease Frequent falls RBBB (right bundle branch block) Leg edema Breast mass, right Left elbow pain Fibromyalgia Ankle pain, right Labial lesion Rectal bleeding H. pylori duodenitis Submandibular lymphadenopathy Chronic neck pain AIRAM (obstructive sleep apnea) Panic attacks Surgical History History of endoscopy History of colonoscopy History of cholecystectomy History of hysterectomy History of tubal ligation History of section History of carpal tunnel surgery of right wrist Family History Father Oral cancer Thyroid cancer Colon cancer Mother NIDDY (non-insulin dependent diabetes mellitus in young) Gastric ulcer Paternal Grandfather Colon cancer Paternal Uncle Colon cancer Other Family history of colon cancer in father Social History Housing: House Are you a primary career resource specialist to a significant other at home: No Alcohol intake: never Patient Tobacco Use Status: Never used Tobacco e-Cigarette/Vaping Use: Never Used Second Hand Smoke Exposure: No service: No Current occupational status: disabled Sexual orientation: Straight/Heterosexual Gender identity: Female Cognitive needs: Yes Hearing needs: No Vision needs: No Questionnaire PHQ-9 Over the last 2 weeks, how often have you been bothered by any of the following problems? 1. Little interest or pleasure in doing things: not at all 2. Feeling down, depressed, or hopeless: several days 3. Trouble falling or staying asleep, or sleeping too much: several days 4. Feeling tired or having little energy: several days 5. Poor appetite or overeating: not at all 6. Feeling bad about yourself - or that you are a failure or have let yourself or your family down: not at all 7. Trouble concentrating on things, such as reading the newspaper or watching television: not at all 8. Moving or speaking so slowly that other people could have noticed. Or the opposite - being so fidgety or restless that you have been moving around a lot more than usual: not at all 9. Thoughts that you would be better off or of hurting yourself in some way: not at all Total score: 3 Depression Screening Interpretation: Positive Depression Screening Follow-up: Existing condition, In treatment, Community Mental Health Worker F/U and Follow-up Visit Requested Depression Screening Done: Yes 55302 - PHQ-9 Billing: Yes Source: Developed by Drs. Juarez Westfall, Suzie Delarosa, Cornelius Brown and colleagues, with an educational nella from [employer] at work. Thrive Questionnaire Date Thrive assessed: 05/02/24 I am a: Patient What is your living situation today?: I have a steady place to live Within the past 12 months, did the food you bought not last and you didn't have the money to get more?: I choose not to answer this question Within the past 12 months, did you worry whether your food would run out before you got money to buy more?: I choose not to answer this question Do you have trouble paying for medicines?: I choose not to answer this question Do you have trouble getting transportation to medical appointments?: I choose not to answer this question Do you have trouble paying your heating and electricity bill?: I choose not to answer this question Do you have trouble taking care of your child, family member or friend?: I choose not to answer this question Do you have trouble with day-to-day activities such as bathing, preparing meals, shopping, managing finances, etc.?: Yes Are you currently unemployed and looking for a job?: I choose not to answer this question Are you interested in more education?: I choose not to answer this question Please select the resources that you would like help with: None Currently or been in a relationship where the following occur: No concerns reported THRIVE Score: 0 AUDIT C Alcohol Use Questionnaire (AUDIT-C) 1. How often do you have a drink containing alcohol?: Never Total Score: 0 Score Reviewed/Action Taken: No LALIT-7 AMB Questionnaire LALIT-7 Date LALIT - 7 assessed: 05/02/24 Feeling nervous, anxious, or on edge: 1 = Several days Not being able to stop or control worryin = Not at all Worrying too much about different things: 1 = Several days Trouble relaxin = Not at all Being so restless that it is hard to sit still: 0 = Not at all Becoming easily annoyed or irritable: 0 = Not at all Feeling afraid as if something awful might happen: 0 = Not at all Total LALIT-7 score (0-4 normal; 5-9 mild; 10-14 moderate; 15-21 severe): 2 Source: Developed by Drs. Juarez Westfall, Suzie Delarosa, Cornelius Brown and colleagues, with an educational nella from [employer] at work. LALIT-7 Assessment Billing LALIT-7 Assessment Tool: LALIT-7 Assessment 61886 Review of Systems Const All systems reviewed & are unremarkable except as noted in HPI and below Card Denies chest pain at rest, Denies chest pain with activity, Denies edema, Denies irregular heart rhythm, Denies claudication, Denies dyspnea, Denies dyspnea on exertion, Denies orthopnea, Denies paroxysmal nocturnal dyspnea and Denies slow heart rate Resp Denies cough, Denies dyspnea and Denies dyspnea on exertion GI Denies abdominal pain, Denies change in bowel habits, Denies excessive flatus, Denies nausea and Denies vomiting Denies urinary incontinence, Denies urinary hesitancy and Denies urinary urgency Musc Denies atrophy, Denies deformity and Denies limited range of motion Skin/Breast Denies bleeding lesions, Denies changing lesions and Denies rash Physical exam (Primary Care) Vital Signs: Last Vital Signs BP 120/90 H 05/02/24 16:25 BMI result Body Mass Index 43.3 BMI Assessment/Plan discussion: High BMI High, discussed plan: lifestyle, weight reduction, dietary and physical activity Tobacco/Smoking Status: Tobacco use Status Tobacco use date assessed 05/02/24 05/02/24 16:29 Patient Tobacco Use Status Never used Tobacco 05/02/24 16:29 e-Cigarette/Vaping Use Never Used 05/02/24 16:29 PHQ-9: PHQ-9 Score PHQ-9: Total score 3 05/02/24 16:55 Depression Screening Interpretation: Positive Depression Screening Follow-up: Existing condition, In treatment, Community Mental Health Worker F/U and Follow-up Visit Requested Thrive Assessment: Date of Thrive Assessment Date Thrive assessed 05/02/24 05/02/24 16:29 Currently or been in a relationship where the following occur: No concerns reported [facility] Head: Yes normal to inspection, Yes normocephalic and Yes atraumatic Ears: external ears normal Eyes General: appearance normal, both eyes and all related structures Eyelids: Yes eyelids normal Conjunctivae: conjunctivae normal Neck Neck: Yes normal visual inspection and Yes supple Resp Effort & Inspection: normal respiratory effort Auscultation: clear to auscultation bilaterally Cardio Jugular venous distension: no JVD Rate: regular rate Rhythm: regular rhythm Heart sounds: S1 normal heart sound present and S2 normal heart sound present GI Inspection: Yes normal to inspection Palpation (GI): Soft to palpation and nontender Auscultation: normal bowel sounds Skin General skin exam: no rashes or lesions noted Neuro General: no focal motor deficits Extrem General: Yes full ROM Psych Appearance: grossly normal Coding Level of Care Code Est Pt Prev Care 40-64y(48774) Diagnoses Physical exam Z00.00 Morbid obesity E66.01 Mild recurrent major depression F33.0 Additional Codes LALIT-7 Assessment Billing - LALIT-7 Assessment Tool: LALIT-7 Assessment 40308 ([id number]) PHQ-9 - 69819 - PHQ-9 Billing: Yes ([id number]) Time Spent (min) 31 Assessment & Plan Assessment & Plan (1) Physical exam: Code(s): Z00.00 - Encounter for general adult medical examination without abnormal findings Category: Medical (2) Morbid obesity: Code(s): E66.01 - Morbid (severe) obesity due to excess calories Category: Medical (3) Mild recurrent major depression: Code(s): F33.0 - Major depressive disorder, recurrent, mild Category: Medical Plan Advised to diet and exercise for her morbid obesity to reach BMI goal less than 30. Labs ordered. Mammogram done yearly. Orders: Orders Vitamin D 25-OH Total Today E55.9 - Vitamin D deficiency, unspecified Comprehensive [place]. Panel Fast Today Z00.00 - Encounter for general adult medical examination without abnormal findings Lipid Panel Today Z00.00 - Encounter for general adult medical examination without abnormal findings
[2024-05-02 16:25] VITALS: BP 120/90; BMI 43.3
--- OUTSIDE RECORDS SUMMARY | 2024-05-02 16:38 | XMS_ITS | Encounter Summary ---
Author Organization [facility] Address [address] [place] [address] Care Team Providers Care Missileman Name Role Phone Trisha Aaron MD Primary Care Provider Mona bui Reason for Visit * Reason Onset Date Comments External Sleep Study Request 10/18/2018 Jasiel e sleep study Encounter Details Date Type Department Care Team Description 10/18/2018 Telephone Pulmonology - [address] [place] [phone] Bryan Sheehan MD External Sleep Study Request (Home sleep study) Social History Tobacco Use Types Packs/Day Years Used Date Smoking Tobacco: Never Smokeless Tobacco: Never Sex Assigned at Date Recorded Not on file documented as of this encounter Miscellaneous Notes * Telephone Encounter - Christina Cavazos - 10/18/2018 1:19 PM EDT [facility]-no auth required Order, benefits faxed to Sleep Medicine Notification letter sent. documented in this encounter Plan of Treatment Not on file documented as of this encounter Visit Diagnoses Not on filedocumented in this encounter Care Teams Missileman Relationship Specialty Start Date End Date Trisha Aaron MD PCP - General Internal Medicine 12/31/17 documented as of this encounter
--- OUTSIDE RECORDS SUMMARY | 2024-05-02 16:38 | XMS_ITS | Encounter Summary ---
Author Organization [facility] Address [address] [place] [address] Care Team Providers Care Performance Manager Name Role Phone Trisha Aaron MD Primary Care Provider Mona bui Reason for Visit * Reason Onset Date Comments radiology 07/03/2022 MRI appt Encounter Details Date Type Department Care Team Description 07/03/2022 Telephone Radiology - [address] [address] Kenneth Bucio DPM radiology (MRI appt) Social History Tobacco Use Types Packs/Day Years Used Date Smoking Tobacco: Never Smokeless Tobacco: Never Alcohol Use Standard Drinks/Week Comments No 0 (1 standard drink = 0.6 oz pur e alcohol) Sex Assigned at Date Recorded Not on file COVID-19 Exposure Response Date Recorded In the last 10 days, have yo u been in contact with someone who was confirmed or suspected to have Coronavirus/COVID-19? No / Unsure 06/25/2022 10:35 AM EDT documented as of this encounter Miscellaneous Notes * Telephone Encounter - Kenneth Bucio DPM - 07/06/2022 11:42 AM EDT Im just clicking a box that states chronic ankle pain.. then I am writing in the comments what I suspect the problem to be. I will stop clicking the box. * Telephone Encounter - Nila Funez - 07/03/2022 9:49 AM EDT Good Morning, I am reaching out because we have noticed a large amount of your patients have had gout suspected in the reason for exam. We realize this is the drop down and there is no choices for just ankle pain, but it can be typed freely in the other comments. This patient for example does not appear to have gout suspected in office notes and it changes the protocol if it truly is suspected. Please advise, thanks MRI documented in this encounter Plan of Treatment Not on file documented as of this encounter Visit Diagnoses Not on filedocumented in this encounter Care Teams Performance Manager Relationship Specialty Start Date End Date Trisha Aaron MD PCP - General Internal Medicine 12/31/17 documented as of this encounter
--- OUTSIDE RECORDS SUMMARY | 2024-05-02 16:38 | XMS_ITS | Encounter Summary ---
Author Organization [facility] Address [facility] [place] [address] Care Team Providers Care Sample Grader Name Role Phone Trisha Aaron MD Primary Care Provider Mona bui Encounter Details Date Type Department Care Team Description 04/28/2019 Hospital Medical Records [address] [place] [address] Ya Ramírez, Social History Tobacco Use Types Packs/Day Years Used Date Smoking Tobacco: Never Smokeless Tobacco: Never Alcohol Use Standard Drinks/Week Comments No 0 (1 standard drink = 0.6 oz pur e alcohol) Sex Assigned at Date Recorded Not on file documented as of this encounter Plan of Treatment Not on file documented as of this encounter Visit Diagnoses Not on filedocumented in this encounter Care Teams Sample Grader Relationship Specialty Start Date End Date Trisha Aaron MD PCP - General Internal Medicine 12/31/17 documented as of this encounter
--- OUTSIDE RECORDS SUMMARY | 2024-05-02 16:38 | XMS_ITS | Encounter Summary ---
Author Organization [employer] [facility] Address [address] [place] [address] Care Team Providers Care Poison Information Specialist Name Role Phone Trisha Aaron MD Primary Care Provider Mona bui Encounter Details Date Type Department Care Team Description 11/03/2018 Orders Only Medical Records [address] [place] [address] Bryan Sheehan MD Social History Tobacco Use Types Packs/Day Years Used Date Smoking Tobacco: Never Smokeless Tobacco: Never Sex Assigned at Date Recorded Not on file documented as of this encounter Plan of Treatment Not on file documented as of this encounter Procedures Procedure Name Priority Date/Time Associated Diagnosis Comments OUTSIDE SLEEP STUDY Routine 10/28/2018 documented in this encounter Results * OUTSIDE SLEEP STUDY (10/28/2018) Bryan Sheehan MD PULMONOLOGY documented in this encounter Visit Diagnoses Not on filedocumented in this encounter Care Teams Poison Information Specialist Relationship Specialty Start Date End Date Trisha Aaron MD PCP - General Internal Medicine 12/31/17 documented as of this encounter
--- OUTSIDE RECORDS SUMMARY | 2024-05-02 16:38 | XMS_ITS | Encounter Summary ---
Author Organization [facility] [employer] [facility] Address [address] [place] [address] Care Team Providers Care Forging Die Finisher Name Role Phone Trisha Aaron MD Primary Care Provider Mona bui Encounter Details Date Type Department Care Team Description 04/11/2019 Release of Information Medical Records [address] [place] [id number] Abstract, Provider Social History Tobacco Use Types Packs/Day Years [...] on filedocumented in this encounter Care Teams Forging Die Finisher Relationship Specialty Start Date End Date Trisha Aaron MD PCP - General Internal Medicine 12/31/17 documented as of this encounter
--- OUTSIDE RECORDS SUMMARY | 2024-05-02 16:38 | XMS_ITS | Encounter Summary ---
Author Organization [facility] Address [address] [place] [address] Care Team Providers Care Nca Certified Concierge Name Role Phone Trisha Aaron MD Primary Care Provider Mona bui Reason for Visit * Reason Comments E-prescribe Rx Request Encounter Details Date Type Department Care Team Description 04/27/2023 Refill [facility] Medical [facility] [address] [place] [phone] Kenneth Bucio DPM E-prescribe Rx Request Social History Tobacco Use Types Packs/Day Years [...] on filedocumented in this encounter Care Teams Nca Certified Concierge Relationship Specialty Start Date End Date Trisha Aaron MD PCP - General Internal Medicine 12/31/17 documented as of this encounter
--- OUTSIDE RECORDS SUMMARY | 2024-05-02 16:38 | XMS_ITS | Encounter Summary ---
Author Organization [facility] Address [address] [place] [address] Care Team Providers Care Detailer Name Role Phone Trisha Aaron MD Primary Care Provider Mona bui Reason for Visit * Reason Comments E-prescribe Rx Request Encounter Details Date Type Department Care Team Description 10/11/2022 Refill [facility] Medical [facility] [address] [place] [address] [place] [phone] Kenneth Bucio DPM E-prescribe Rx Request [...] suspected to have Coronavirus/COVID-19? No / Unsure 09/15/2022 10:01 AM EDT documented as of this encounter Plan of Treatment Not on file documented as of this encounter Visit Diagnoses Not on filedocumented in this encounter Care Teams Detailer Relationship Specialty Start Date End Date Trisha Aaron MD PCP - General Internal Medicine 12/31/17 documented as of this encounter
--- OUTSIDE RECORDS SUMMARY | 2024-05-02 16:38 | XMS_ITS | Encounter Summary ---
Author Organization [facility] [place] [facility] Address [address] [place] [address] Care Team Providers Care Quality Review Trainer Name Role Phone Trisha Aaron MD Primary Care Provider Mona bui Encounter Details Date Type Department Care Team Description 07/23/2020 [facility] Medical Records [address] [place] [address] Abstract, Provider Social History Tobacco Use Types Packs/Day Years Used Date Smoking Tobacco: Never Smokeless Tobacco: Never Alcohol Use Standard Drinks/Week Comments No 0 (1 standard drink = 0.6 oz pur e alcohol) Sex Assigned at Date Recorded Not on file COVID-19 Exposure Response Date Recorded In the last month, have you been in contact with someone who was confirmed or suspected to have Coronavirus / COVID-19? No / Unsure 07/19/2020 11:22 AM EDT documented as of this encounter Plan of Treatment Not on file documented as of this encounter Visit Diagnoses Not on filedocumented in this encounter Care Teams Quality Review Trainer Relationship Specialty Start Date End Date Trisha Aaron MD PCP - General Internal Medicine 12/31/17 documented as of this encounter
--- OUTSIDE RECORDS SUMMARY | 2024-05-02 16:38 | XMS_ITS | Clinical Summary ---
Author Organization [facility] Address [address] [place] [address] Care Team Providers Care Office Messenger Name Role Phone Trisha Aaron MD Primary Care Provider Mona labjeannie Allergies Active Allergy Reactions Severity Noted Date Comments Cyclobenzaprine 11/02/2018 Medications Medication Sig Dispensed Refills Start Date End Date Status montelukast (SINGULAIR) 10 MG tabletIndications:S evere persistent asthma without complication Take 10 mg by mouth at bedtime. 0 Active trazodone (DESYREL) 100 MG tablet Take 100 mg by mouth at bedtime. 150mg 0 Active clonazepam (KLONOPIN) 0.5 MG tablet Take 0.5 mg by mouth 2 times daily as needed. 0 Active citalopram (CELEXA) 10 MG tablet Take 10 mg by mouth daily. 0 Active Pantoprazole Sodium 40 MG Powd Pack Take by mouth. 0 Activ e fluticasone-salmete rol (ADVAIR) 250-50 MCG/DOSE diskus inhaler Inhale 1 Puff into the lungs every 12 hours. 0 Active Albuterol Sulfate 108 (90 BASE) MCG/ACT AEROSOL POWDER,BREATH ACTIVATEDIndication s:Severe persistent asthma without complication Inhale 2 Puffs into the lungs 4 times daily as needed. 0 Active budesonide-formoter ol (SYMBICORT) 80-4.5 MCG/ACT inhalerIndications: Severe persistent asthma without complication Inhale 2 Puffs into the lungs every 12 hours. This medication has inhaler steroid: Rinse mouth with water and expectorate after each dose to prevent oral/esophageal candidiasis or fungal infection. 1 Inhaler 5 02/03/2018 Active albuterol (PROVENTIL) (2.5 MG/3ML) 0.083% nebulizer solution Take 1 Vial by nebulization every 4 hours as needed for Wheezing for up to 30 days. 50 Vial 11 02/03/2018 Active Zolpidem Tartrate 5 MG Tab Take by mouth at bedtime as needed. 0 Active Tiotropium [place] Monohydrate (SPIRIVA RESPIMAT) 2.5 MCG/ACT Aero Soln Inhale 5 mcg into the lungs daily for 30 days. 1 Inhaler 11 10/17/2018 Active Misc. Devices (BED WEDGE) Misc 1 Device by Does not apply route at bedtime. 1 Each 0 10/17/2018 Active cetirizine (ZYRTEC) 10 MG tablet TOME ABHISHEK TABLETA TODOS LOS D? 3 12/09/2018 Active citalopram (CELEXA) 40 MG tablet Take 40 mg by mouth daily. 3 12/26/2018 Active diclofenac (VOLTAREN) 75 MG EC tablet TAKE 1 TABLET WITH FOOD OR MILK TWICE A DAY ORALLY 30 1 10/12/2018 Active fluocinonide (LIDEX) 0.05 % external solution APLIQUE AL ?LYNDA AFECTADA DOS VECES AL D?A FOR 2 WEEKS BREAK 1 WEEK AND REPEAT CUANDO SEA NECESARIO 3 10/12/2018 Active hydrocodone-acetami nophen (NORCO) 5-325 MG per tablet TOME ABHISHEK TABLETA POR V?A ORAL CADA OCHO HORAS CUANDO SEA NECESARIO 0 12/29/2018 Active ketoconazole (NIZORAL) 2 % shampoo PLEASE SEE ATTACHED FOR DETAILED DIRECTIONS 6 10/12/2018 Active predniSONE (DELTASONE) 20 MG tablet TOME ABHISHEK TABLETA TODOS LOS D? 0 12/27/2018 Active naproxen (NAPROSYN) 500 MG tablet TOME ABHISHEK TABLETA DOS VECES AL TOO 60 Tab 1 04/03/2019 Active oxycodone-acetamino phen (PERCOCET) 5-325 MG per tablet Take 1 tablet by mouth every 4 hours as needed for Pain for up to 7 days. 20 Tab 0 05/16/2020 Active ibuprofen (ADVIL,MOTRIN) 600 MG tablet Take 1 Tab by mouth every 6 hours as needed for Pain for up to 30 days. 30 Tab 0 05/16/2020 Active meloxicam (MOBIC) 15 MG tablet TOME ABHISHEK TABLETA TODOS LOS DAVALOS 30 Tablet 0 03/26/2023 Active Diclofenac Sodium 1 % Gel APPLY 4 G TOPICALLY 3 TIMES DAILY. 100 g 3 10/20/2023 Active triamcinolone (KENALOG) 0.025 % cream APPLY TO AFFECTED AREA 3 TO 4 TIMES A DAY NEEDED FOR IRRITATION 30 g 0 11/05/2023 Active Active Problems Problem Noted Date Morbid obesity with BMI of 40.0-44.9, ad ult 11/02/2018 AIRAM (obstructive sleep apnea) 04/06/2018 Overview: 10/2018 Home Sleep Study did not reveal sleep apnea or nocturnal hypoxia. Asthma 04/06/2018 Depression Immunizations Name Administration Dates Next Due Influenza Vaccine-preservati ve Free-quadrivalent 4 Years 04/06/2018 Family History Medical History Relation Name Comments Thyroid Disorder Daughter Diabetes Father Hypertension Father Thyroid cancer Father Diabetes Mother Hypertension Mother Relation Name Status Comments Daughter Father Alive Mother Alive Social History Tobacco Use Types Packs/Day Years Used Date Smoking Tobacco: Never Smokeless Tobacco: Never Tobacco Cessation:Counseling Given: Not Answered Alcohol Use Standard Drinks/Week Comments No 0 (1 standard drink = 0.6 oz pur e alcohol) Sex Assigned at Date Recorded Not on file Last Filed Vital Signs Vital Sign Reading Time Taken Comments Blood Pressure 130/82 04/15/2023 3:00 PM EST Pulse 88 04/15/2023 3:00 PM EST Temperature - - Respiratory Rate 16 12/01/2019 2:23 PM EDT Oxygen Saturation 100% 11/02/2018 2:17 PM EDT Inhaled Oxygen Concentration - - Weight 111.1 kg (245 lb) 01/26/2024 10:25 AM EDT Height 167.6 cm (5' 6 ) 01/26/2024 10:25 AM EDT Body Mass Index 39.54 01/26/2024 10:25 AM EDT Plan of Treatment Health Maintenance Due Date Last Done Comments Covid-19 Vaccine (#1) 1979 DTAP/TDAP/TD (1 - Tdap) 1998 PNEUMOCOCCAL VACCINE FOR HIG H RISK PATIENTS (#1) 1998 CHOLESTEROL SCREENING 1999 CERVICAL CANCER SCREENING 2000 BASELINE HEALTH EXAM 40-64 2019 MAMMOGRAM 2019 INFLUENZA (#1) 2023 04/06/2018 BMI CHECK/ADVISE 04/05/2024 07/19/2020, , 05/16/2020, Additional history exists DEPRESSION SCREENING/FOLLOWUP 04/05/2024 11/02/2018 SOCIAL NEEDS SCREENING 04/05/2024 Care Teams Office Messenger Relationship Specialty Start Date End Date Trisha Aaron MD PCP - General Internal Medicine 12/31/17
--- OUTSIDE RECORDS SUMMARY | 2024-05-02 16:38 | XMS_ITS | Encounter Summary ---
Author Organization [facility] Address [address] [place] [address] Care Team Providers Care Diamond Grinder Name Role Phone Trisha Aaron MD Primary Care Provider Mona bui Reason for Visit * Reason Comments E-prescribe Rx Request Encounter Details Date Type Department Care Team Description 03/23/2023 Refill [facility] [address] [place] [phone] Kenneth Bucio DPM E-prescribe Rx Request [...] on filedocumented in this encounter Care Teams Diamond Grinder Relationship Specialty Start Date End Date Trisha Aaron MD PCP - General Internal Medicine 12/31/17 documented as of this encounter
--- OUTSIDE RECORDS SUMMARY | 2024-05-02 16:38 | XMS_ITS | Encounter Summary ---
Author Organization [facility] Address [address] [place] [address] Care Team Providers Care Felt Tipping Machine Tender Name Role Phone Trisha Aaron MD Primary Care Provider Mona bui Reason for Visit * Reason Comments E-prescribe Rx Request Encounter Details Date Type Department Care Team Description 11/10/2022 Refill [facility] Medical [facility] [address] [place] [phone] Kenneth Bucio DPM E-prescribe Rx Request Social [...] on filedocumented in this encounter Care Teams Felt Tipping Machine Tender Relationship Specialty Start Date End Date Trisha Aaron MD PCP - General Internal Medicine 12/31/17 documented as of this encounter
--- OUTSIDE RECORDS SUMMARY | 2024-05-02 16:38 | XMS_ITS | Encounter Summary ---
Author Organization [facility] Address [address] [place] [address] Care Team Providers Care Mental Health Coordinator Name Role Phone Trisha Aaron MD Primary Care Provider Mona bui Encounter Details Date Type Department Care Team Description 05/09/2020 Orders Only OBGYN - [place] [address] [place] [address] Ya Ramírez DO Irregular menstrual cycle (Primary Dx); Morbid obesity with BMI of 40.0-44.9, adult (HCC) Social History Tobacco Use Types Packs/Day Years [...] have Coronavirus / COVID-19? No / Unsure 05/09/2020 2:23 PM EST documented as of this encounter Plan of Treatment Not on file documented as of this encounter Visit Diagnoses Diagnosis Irregular menstrual cycle- Primary Morbid obesity with BMI of 40.0-44.9, adult (HCC) documented in this encounter Care Teams Mental Health Coordinator Relationship Specialty Start Date End Date Trisha Aaron MD PCP - General Internal Medicine 12/31/17 documented as of this encounter
--- OUTSIDE RECORDS SUMMARY | 2024-05-02 16:38 | XMS_ITS | Encounter Summary ---
Author Organization [facility] Address [address] [place] [address] Care Team Providers Care Lead Performance Support Analyst Name Role Phone Trisha Aaron MD Primary Care Provider Mona bui Reason for Visit * Reason Comments E-prescribe Rx Request Encounter Details Date Type Department Care Team Description 10/20/2023 Refill [facility] Medical [facility] [address] [place] [phone] Kenneth Bucio DPM E-prescribe Rx Request [...] on filedocumented in this encounter Care Teams Lead Performance Support Analyst Relationship Specialty Start Date End Date Trisha Aaron MD PCP - General Internal Medicine 12/31/17 documented as of this encounter
--- OUTSIDE RECORDS SUMMARY | 2024-05-02 16:38 | XMS_ITS | Clinical Summary ---
Author Organization [address] [place] [address] Address [address] [place] [phone] Phone Care Team Providers Care Wrapper Operator Name Role Phone Trisha Aaron MD Primary Care Provider [phone] Allergies Active Allergy Reactions Criticality Noted Date Comments Cyclobenzaprine 11/02/2018 Medications Medication Sig Dispensed Refills Start Date End Date Status triamcinolone (KENALOG) 0.025 % cream APPLY TO AFFECTED AREA 3 TO 4 TIMES A DAY NEEDED FOR IRRITATION 11/05/2023 Active diclofenac (VOLTAREN) 1 % topical gel APPLY 4 G TOPICALLY 3 TIMES DAILY. 10/20/2023 Active meloxicam (MOBIC) 15 mg tablet TOME ABHISHEK TABLETA TODOS LOS DAVALOS 03/26/2023 Active oxyCODONE-acetamino phen (PERCOCET) 5-325 mg per tablet Take 1 tablet by mouth every 4 hours as needed for Pain for up to 7 days. 05/16/2020 Active naproxen (NAPROSYN) 500 mg tablet Take 1 tablet (500 mg total) by mouth 2 (two) times a day. 04/03/2019 Active cetirizine (ZyrTEC) 10 mg tablet TOME ABHISHEK TABLETA TODOS LOS D? 12/09/2018 Active citalopram (CeleXA) 40 mg tablet Take 40 mg by mouth daily. 12/26/2018 Active diclofenac (VOLTAREN) 75 mg EC tablet TAKE 1 TABLET WITH FOOD OR MILK TWICE A DAY ORALLY 30 10/12/2018 Active fluocinonide (LIDEX) 0.05 % topical solution APLIQUE AL ?LYNDA AFECTADA DOS VECES AL D?A FOR 2 WEEKS BREAK 1 WEEK AND REPEAT CUANDO SEA NECESARIO 10/12/2018 Active HYDROcodone-acetami nophen (NORCO) 5-325 mg per tablet TOME ABHISHEK TABLETA POR V?A ORAL CADA OCHO HORAS CUANDO SEA NECESARIO 12/29/2018 Active ketoconazole (NIZORAL) 2 % shampoo PLEASE SEE ATTACHED FOR DETAILED DIRECTIONS 10/12/2018 Active predniSONE (DELTASONE) 20 mg tablet TOME ABHISHEK TABLETA TODOS LOS D? 12/27/2018 Active zolpidem (AMBIEN) 5 mg tablet Take by mouth at bedtime as needed. Active tiotropium (Spiriva Respimat) 2.5 mcg/actuation inhalation spray Inhale 5 mcg into the lungs daily for 30 days. 10/17/2018 Active montelukast (SINGULAIR) 10 mg tablet Take 1 tablet (10 mg total) by mouth at bedtime. Active traZODone (DESYREL) 100 mg tablet Take 100 mg by mouth at bedtime. 150mg Active clonazePAM (KlonoPIN) 0.5 mg tablet Take 0.5 mg by mouth 2 times daily as needed. Active citalopram (CeleXA) 10 mg tablet Take 10 mg by mouth daily. Active pantoprazole (PROTONIX) 40 mg packet Take by mouth. Active fluticasone-salmete rol (ADVAIR DISKUS) 250-50 mcg/dose diskus inhaler Inhale 1 Puff into the lungs every 12 hours. Active albuterol sulfate (ProAir RespiClick) 90 mcg/actuation aerosol powdr breath activated Inhale 2 Puffs into the lungs 4 times daily as needed. Active budesonide-formoter oL (SYMBICORT) 80-4.5 mcg/actuation inhaler Inhale 2 Puffs into the lungs every 12 hours. This medication has inhaler steroid: Rinse mouth with water and expectorate after each dose to prevent oral/esophageal candidiasis or fungal infection. 02/03/2018 Active albuterol 2.5 mg /3 mL (0.083 %) nebulizer solution Take 1 Vial by nebulization every 4 hours as needed for Wheezing for up to 30 days. 02/03/2018 Active miscellaneous medical supply misc MISC. DEVICES (BED WEDGE) MIS 1 Device by Does not apply route at bedtime. 10/17/2018 Active Active Problems Problem Noted Date Diagnosed Date Depression 01/27/2024 Morbid obesity with BMI of 40.0-44.9, adult 01/04 Asthma 04/06/2018 AIRAM (obstructive sleep apnea) 04/06/2018 Overview (01/27/2024): 10/2018 Home Sleep Study did not reveal sleep apnea or nocturnal hypoxia. Encounters Date Type Department Care Team Description 02/15/2024 9:45 AM EST Office Visit Orthopedic Surgery - [address] [phone] Kenneth Bucio, DPM Peroneal tendinitis of left lower extremity (Primary Dx); Arthritis of left subtalar joint; Disorder of ligament of ankle, left; Left foot pain from Last 3 Months Immunizations Name Administration Dates Next Due Influenza Quadravalent, MDCK , 0.5ml, preservative free (Flucelvax) 6mo and older 04/06/2018 Surgical History Surgery Date Site/Laterality Comments OTHER SURGICAL HISTORY PROCEDURE: [place] ARTHRS WRST EXC&/RPR TRIANG FIBROCART&/JOINT SECTION PROCEDURE: HISTORICAL DELIVERY Medical History Medical History Date Comments Asthma DX:Asthma Carpal tunnel syndrome DX:Carpal tunnel syndrome Hypertension DX:Hypertension Depression DX:Depression Gastritis DX:Gastritis Pneumonia 2016 DX:Pneumonia; CO MMENT: hospitalized in 2017 Family History Medical History Relation Name Comments Thyroid disease Daughter Diabetes Father Hypertension Father Other: Thyroid cancer Father Diabetes Mother Hypertension Mother Relation Name Status Comments Daughter Father Alive Mother Alive Social History Tobacco Use Types Packs/Day Years Used Date Smoking Tobacco: Never Smokeless Tobacco: Never Tobacco Cessation:Counseling Given: Not Answered Alcohol Use Standard Drinks/Week Comments No 0 (1 standard drink = 0.6 oz pur e alcohol) Sex and Gender Information Value Date Recorded Sex Assigned at Not on file Gender Identity Not on file Sexual Orientation Not on file Job Start Date Occupation Industry Not on file Not on file Not on file Obstetrics History Last Filed Vital Signs Vital Sign Reading Time Taken Comments Blood Pressure 130/82 04/15/2023 3:00 PM EST Pulse 88 04/15/2023 3:00 PM EST Temperature - - Respiratory Rate - - Oxygen Saturation - - Inhaled Oxygen Concentration - - Weight 111 kg (245 lb) 02/15/2024 10:00 AM EST Height 167.6 cm (5' 5.98 ) 02/15/2024 10:[address] Body Mass Index 39.56 02/15/2024 10:00 AM EST Plan of Treatment Upcoming Encounters Date Type Department Care Team (Late st Contact Info) Description 09/14/2024 1:30 PM EDT Office Visit Orthopedic Surgery - [place] [address] [facility] [address] [place] [phone] Kenneth Bucio, FREDERIC [address] [facility] [address] [place] [address] Health Maintenance Due Date Last Done Comments Breast Cancer Screening 1979 Pneumococcal Vaccine: Pediatrics (0 to 5 Years) and At-Risk Patients (6 to 64 Years) (1 of 2 - PCV) 1985 DTaP,Tdap,and Td Vaccines (1 - Tdap) 1998 Hepatitis B Vaccines (1 of 3 - 19+ 3-dose series) 1998 Cervical Cancer Screening: Pap Smear 2000 Cholesterol Screening (Lipid Panel) 03/08/2022 Colorectal Cancer Screening: Colonoscopy 03/08/2022 Depression Screening 03/08/2022 HIV Screening 03/08/2022 Hepatitis C Screening 03/08/2022 Social Influencers of Health Screening 03/08/2022 COVID-19 Vaccine ( season) 2023 07/23/2020, 06/25/2020 Influenza Vaccine Completed 02/14/2024, , 01/06/2022, Additional history exists HIB Vaccines Aged Out No longer eligi ble based on patient's age to complete this topic HPV Vaccines Aged Out No longer eligi ble based on patient's age to complete this topic Hepatitis A Vaccines Aged Out No long er eligible based on patient's age to complete this topic IPV Vaccines Aged Out No longer eligi ble based on patient's age to complete this topic MMR Vaccines Aged Out No longer eligi ble based on patient's age to complete this topic Meningococcal ACWY Vaccine Aged Out N o longer eligible based on patient's age to complete this topic RSV Immunization Patients Under 20 months Aged Out No longer eligible based on patient's age to complete this topic Varicella Vaccines Aged Out No longer eligible based on patient's age to complete this topic Care Teams Wrapper Operator Relationship Specialty Start Date End Date Trisha Aaron MD [address] [place] [address] , [address] [facility] [place], [place] PCP - General Internal Medicine 12/31/17
--- OUTSIDE RECORDS SUMMARY | 2024-05-02 16:38 | XMS_ITS | Encounter Summary ---
Author Organization [facility] Address [address] [place] [address] Care Team Providers Care Supervisor Waterworks Name Role Phone Trisha Aaron MD Primary Care Provider Mona bui Reason for Visit * Reason Onset Date Comments Error 05/08/2020 Encounter Details Date Type Department Care Team Description 05/08/[address] [phone] Trisha Aaron MD Error Social History Tobacco Use Types Packs/Day Years [...] on filedocumented in this encounter Care Teams Supervisor Waterworks Relationship Specialty Start Date End Date Trisha Aaron MD PCP - General Internal Medicine 12/31/17 documented as of this encounter
--- OUTSIDE RECORDS SUMMARY | 2024-05-02 16:38 | XMS_ITS | Encounter Summary ---
Author Organization [facility] Address [address] [place] [address] Care Team Providers Care Inhalation Therapy Aides Teacher Name Role Phone Trisha Aaron MD Primary Care Provider Mona bui Reason for Visit * Reason Onset Date Comments Provider Call Back 10/27/2018 Encounter Details Date Type Department Care Team Description 10/27/2018 Telephone Pulmonology - [place] [address] [facility] [address] [place] [phone] Bryan Sheehan MD Provider Call Back Social History Tobacco Use Types Packs/Day Years Used Date Smoking Tobacco: Never Smokeless Tobacco: Never Sex Assigned at Date Recorded Not on file documented as of this encounter Miscellaneous Notes * Telephone Encounter - Tashia Polo M.A. - 10/31/2018 2:15 PM EDT Please advise. I dont see an order for any DME. * Telephone Encounter - Radha Moreno M.A. - 10/31/2018 1:49 PM EDT I called pt (unable to reach [place]) who states the rx for BED WEDGE was denied because it needs to have a size listed. I asked her which she'll need but she is unsure; she will contact supplier for recommendation and call back. Her insurance requires a Letter of Medical Necessity to go along with the rx in order for it to be covered. * Telephone Encounter - Tashia Polo M.A. - 10/31/2018 11:51 AM EDT I called and lefta message for patient to call back and clarify her message. * Telephone Encounter - Bryan Sheehan MD - 10/31/2018 9:08 AM EDT I do not understand that message, please reach out to her, ty * Telephone Encounter - Shakira Fierro - 10/27/2018 11:34 AM EDT Patient came in and stated that the pillow Dr. Sheehan proscibed for her was not available for the reason that he needs to add a size and the ins plan needs a letter stating why she is needing the pillow. documented in this encounter Plan of Treatment Not on file documented as of this encounter Visit Diagnoses Not on filedocumented in this encounter Care Teams Inhalation Therapy Aides Teacher Relationship Specialty Start Date End Date Trisha Aaron MD PCP - General Internal Medicine 12/31/17 documented as of this encounter
== END 2024-05-02 16:55 | disposition home or self-care (01) ==
PROVIDERS: PCP Internal Medicine; Visit Provider Internal Medicine
DX: Z00.00 Encounter for general adult medical examination without abnormal findings (principal); E66.01 Morbid (severe) obesity due to excess calories; F33.0 Major depressive disorder, recurrent, mild; Z68.41 Body mass index [BMI] 40.0-44.9, adult

== ENCOUNTER → 2024-05-02 16:14 | Outpatient (BNVA) | payer OTHER, SELFPAY | PROVIDERS: PCP Internal Medicine; Visit Provider Internal Medicine | DX: Z00.00 Encounter for general adult medical examination without abnormal findings (principal); E66.01 Morbid (severe) obesity due to excess calories; M79.7 Fibromyalgia; F33.0 Major depressive disorder, recurrent, mild; Z68.41 Body mass index [BMI] 40.0-44.9, adult | CPT/HCPCS: 96127; 99396 ==

== ENCOUNTER 2024-06-14 09:04 | Outpatient (AMB) | payer OTHER, SELFPAY ==
--- NOTE | 2024-06-14 09:13 | MHC.PC.OV ---
Vital Signs 06/14/24 09:43 Height 5 ft 6 in Weight 263 lb 4 oz BMI 42.5 BP 114/72 Blood Pressure Location Rt brachial Position Sitting Respiration 16 Pulse 62 Pulse Source Pulse Oximeter Pulse Oximetry (%) 99 Oxygen Delivery Method Room Air Intake Visit Reasons: CHARIS from Dr. Rahman / [facility] Intake Note: New patient visit Fret Saw Operator Required: Yes Fret Saw Operator Name: Fret Saw Operator declined Accompanied by: Sister Allergies Iodinated Contrast Media [IV CONTRAST] Allergy (Severe, Verified 06/14/24 09:13) ANAPHYLAXIS cyclobenzaprine [From FLEXERIL] Allergy (Intermediate, Verified 06/14/24 09:13) NUMBNESS gadobutrol [From GADAVIST] Allergy (Intermediate, Verified 06/14/24 09:13) DIFFICULTY BREATHING perfume [PERFUME] Allergy (Intermediate, Verified 06/14/24 09:13) TRIGGERS ASTHMA prednisone Allergy (Intermediate, Verified 06/14/24 09:13) swelling Medication List - Last Reconciled 06/14/24 by Keyla Ac PA-C albuterol sulfate 2.5 mg (3 mL) inhalation Q4H PRN 30 days albuterol sulfate 90 mcg/actuation 2 inhalations inhalation Q6H PRN 30 days azelastine 2 sprays intranasal BID 30 days cholecalciferol (vitamin D3) 50 mcg PO DAILY 90 days clonazepam 1 mg PO BID PRN commode As directed duloxetine (Cymbalta) 20 mg PO BID fluticasone propionate 50 mcg/actuation (Flonase Allergy Relief) 1 spray intranasal DAILY 30 days ujoejtqzcqc-maqbdzyks-edfuvizb 200-62.5-25 mcg (Trelegy Ellipta) 1 inh inhalation DAILY 30 days hydrochlorothiazide 25 mg PO QAM hydroxyzine HCl 50 mg PO BID montelukast 10 mg PO DAILY nebulizers (AeroEclipse II Nebulizer) As directed ondansetron 8 mg PO Q8H oxymetazoline 0.05% (Afrin (oxymetazoline)) 2 sprays intranasal Q12H PRN 5 days pantoprazole 40 mg PO DAILY 90 days pregabalin 150 mg PO BID 30 days roflumilast 500 mcg PO DAILY Shower Chair As directed Symbicort 160-4.5 mcg/actuation (budesonide-formoterol) 2 puffs inhalation BID 30 days NS tiotropium bromide 2.5 mcg/actuation (Spiriva Respimat) 2 puffs PO DAILY tramadol 50 mg PO Q6H PRN 30 days walker As directed zolpidem 10 mg PO BEDTIME PRN Tobacco use date assessed: 06/14/24 Dental Screening Dental Screen Date: 06/14/24 Did you have a dental visit in the last 12 months?: No Did you have a dental problem in the last 6 months where you did not have access to dental care?: No Was dental information given to patient?: Patient has dentist (Has a phobia with dentist due to past experience.) HPI CHARIS from Dr. Rahman / [facility] HPI Details Patient is a 44-year-old female with a significant medical history asthma, obstructive sleep apnea, htn, morbid obesity, anxiety, depression, frequent falls, fibromyalgia, Meniere's disease, polyarthralgia presenting today to establish care. Dr. Rahman. She just had a physical in April. Sister is here to help with translation She states that she is ultimately transferring because her pain management. I did discuss with her I will adjust her narcotic regimen. CV: Blood pressure today in the office is 114/72. She is on hctz 25 mg. Psych: She follows with [facility]. She is currently on ambien, clonazepam. She feels that her anxiety and depression are exacerbated but attributes this to her pain. GI: Has an appointment in September with Gastroenterology for her gastritis/GERD and nausea. She has gone to the ER for this in his currently on pantoprazole but does not find this effective. In the past she was on omeprazole but also did not find this to be very effective. She would like to try a different medication. Rheum: followed with rheumatology and was told it was it is fibromyalgia and that beyond taking Lyrica and tramadol as needed they would not be able to offer much support. The prescription for the medications were then handed over to her PCP. She states that she does not want to go to physical therapy it her pain is not as well managed as she would like it to be. She uses tramadol about once a day but tries not to take it every day. General: She is obese and has a hard time with weight loss. She says that she has been on a low sugar and low-fat diet now for a few months and has not lost any weight. In the past she has trialed different diets and has not been able to lose much weight. She would like to try a GLP 1. She has an appointment scheduled with endocrinology next week. Pulm: asthma well controlled and cpap she does not like to use but we will use it a few times a week. Follows with [facility] pulmonology. 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: Up-to-date Clonoscopy: booked in September with GI and plans to discuss colonoscopy [facility] Medical History Skin lesion Hypertension Left foot pain Chronic cough Right elbow pain Morbid obesity Generalized anxiety disorder Asthma Hypovitaminosis D Mild recurrent major depression Pleuritic chest pain COVID-19 Breast pain, left Sinusitis Low back pain Polyarthralgia Ophthalmoplegic migraine Menieres disease Frequent falls RBBB (right bundle branch block) Leg edema Breast mass, right Left elbow pain Fibromyalgia Ankle pain, right Labial lesion Rectal bleeding H. pylori duodenitis Submandibular lymphadenopathy Chronic neck pain AIRAM (obstructive sleep apnea) Panic attacks Surgical History History of endoscopy History of colonoscopy History of cholecystectomy History of hysterectomy History of tubal ligation History of section History of carpal tunnel surgery of right wrist Family History Father Oral cancer Thyroid cancer Colon cancer Mother NIDDY (non-insulin dependent diabetes mellitus in young) Gastric ulcer Paternal Grandfather Colon cancer Paternal Uncle Colon cancer Other Family history of colon cancer in father Social History Housing: House Are you a primary transitional care nurse to a significant other at home: No Alcohol intake: never Patient Tobacco Use Status: Never used Tobacco e-Cigarette/Vaping Use: Never Used Second Hand Smoke Exposure: No service: No Current occupational status: unemployed Sexual orientation: Straight/Heterosexual Gender identity: Female Cognitive needs: No Hearing needs: No Vision needs: Yes Questionnaire PHQ-9 Over the last 2 weeks, how often have you been bothered by any of the following problems? 1. Little interest or pleasure in doing things: nearly every day 2. Feeling down, depressed, or hopeless: nearly every day 3. Trouble falling or staying asleep, or sleeping too much: more than half the days 4. Feeling tired or having little energy: more than half the days 5. Poor appetite or overeating: nearly every day 6. Feeling bad about yourself - or that you are a failure or have let yourself or your family down: nearly every day 7. Trouble concentrating on things, such as reading the newspaper or watching television: nearly every day 8. Moving or speaking so slowly that other people could have noticed. Or the opposite - being so fidgety or restless that you have been moving around a lot more than usual: nearly every day 9. Thoughts that you would be better off or of hurting yourself in some way: nearly every day Total score: 25 Depression Screening Interpretation: Positive Depression Screening Follow-up: Existing condition, In treatment, New Medication prescribed and Follow-up Visit Requested Depression Screening Done: Yes 21811 - PHQ-9 Billing: Yes Source: Developed by Drs. Juarez Westfall, Suzie Delarosa, Cornelius Brown and colleagues, with an educational nella from [employer]. Thrive Questionnaire Date Thrive assessed: 05/02/24 Within the past 12 months, did you worry whether your food would run out before you got money to buy more?: I choose not to answer this question Do you have trouble paying for medicines?: I choose not to answer this question Do you have trouble getting transportation to medical appointments?: I choose not to answer this question Do you have trouble paying your heating and electricity bill?: I choose not to answer this question Do you have trouble taking care of your child, family member or friend?: I choose not to answer this question Do you have trouble with day-to-day activities such as bathing, preparing meals, shopping, managing finances, etc.?: Yes Are you currently unemployed and looking for a job?: I choose not to answer this question Are you interested in more education?: I choose not to answer this question Please select the resources that you would like help with: None Currently or been in a relationship where the following occur: No concerns reported THRIVE Score: 0 AUDIT C Alcohol Use Questionnaire (AUDIT-C) 1. How often do you have a drink containing alcohol?: Never Total Score: 0 LALIT-7 AMB Questionnaire LALIT-7 Date LALIT - 7 assessed: 06/14/24 Feeling nervous, anxious, or on edge: 3 = Nearly every day Not being able to stop or control worryin = Nearly every day Worrying too much about different things: 3 = Nearly every day Trouble relaxin = More than half the days Being so restless that it is hard to sit still: 2 = More than half the days Becoming easily annoyed or irritable: 1 = Several days Feeling afraid as if something awful might happen: 2 = More than half the days Total LALIT-7 score (0-4 normal; 5-9 mild; 10-14 moderate; 15-21 severe): 16 Source: Developed by Drs. Juarez Westfall, Suzie Delarosa, Cornelius Brown and colleagues, with an educational nella from [employer]. LALIT-7 Assessment Billing LALIT-7 Assessment Tool: LALIT-7 Assessment 83223 ACT Questionnaire In the past 4 weeks, how much of the time did your asthma keep you from getting as much done at work, school or at home?: Most of the time During the past 4 weeks, how often have you had shortness of breath?: 3-6 times a week (about 10 times in the past 4 weeks. ) During the past 4 weeks, how often did your asthma symptoms wake you up at night or earlier than usual in the morning?: Not at all (Only if pt is sick) During the past 4 weeks, how often have you had to use your rescue inhaler or nebulizer medication?: More than 3 times per day (everyday) How would you rate your asthma control during the past 4 weeks?: Well controlled ACT Interpretation: Positive Score: 15 Physical exam (Primary Care) Tobacco/Smoking Status: Tobacco use Status Tobacco use date assessed 05/02/24 06/14/24 09:16 Patient Tobacco Use Status Never used Tobacco 06/14/24 09:16 e-Cigarette/Vaping Use Never Used 06/14/24 09:16 Depression Screening Interpretation: Positive Depression Screening Follow-up: Existing condition, In treatment, New Medication prescribed and Follow-up Visit Requested Thrive Assessment: Date of Thrive Assessment Date Thrive assessed 05/02/24 06/14/24 09:16 Currently or been in a relationship where the following occur: No concerns reported Const Orientation/consciousness: patient oriented x3 HENMT Ears: hearing grossly normal bilaterally Neck Thyroid: Thyroid normal Lymphatic: no lymphadenopathy noted Resp Auscultation: clear to auscultation bilaterally Cardio Rate: regular rate Rhythm: regular rhythm Heart sounds: S1 normal heart sound present and S2 normal heart sound present GI Inspection: Yes normal to inspection Palpation (GI): Soft to palpation and Other GI palpation findings present (nontender, no cva tenderness) Auscultation: normoactive bowel sounds Rectal Exam - Female: deferred Skin General skin exam: no rashes or lesions noted Neuro General: patient oriented x3, gait normal and no focal motor deficits Results Reviewed Results Reviewed: Laboratory Tests 08/20/23 10:42 Sodium 141 Potassium 3.4 Chloride 106 Carbon Dioxide 27 Anion Gap 11 L BUN 13 Creatinine 0.69 Estimated GFR > 60 Random Glucose 96 Fasting Glucose 96 Estimat Average Glucose 97 Hemoglobin A1c % 5.0 Calcium 8.7 D Total Bilirubin 0.5 AST 14 ALT 19 Alkaline Phosphatase 99 Total Protein 7.3 Albumin 3.9 Triglycerides 134 Cholesterol 139 LDL Cholesterol, Calc 76 HDL Cholesterol 37 L TSH 2.18 Coding Level of Care Code Est Pt Level 4 (04481) Complex EM visit Add On G2211 Diagnoses Mild recurrent major depression F33.0 Morbid obesity E66.01 AIRAM (obstructive sleep apnea) G47.33 Primary hypertension I10 Hypertension type: primary hypertension Gastroesophageal reflux disease without esophagitis K21.9 Esophagitis presence: without esophagitis Additional Codes Asthma Control Questionnaire - ACT Interpretation: Positive ([id number]) PHQ-9 - 96209 - PHQ-9 Billing: Yes ([id number]) LALIT-7 Assessment Billing - LALIT-7 Assessment Tool: LALIT-7 Assessment [id number] ([id number]) Assessment & Plan Assessment & Plan (1) Mild recurrent major depression: Code(s): F33.0 - Major depressive disorder, recurrent, mild Category: Medical Plan: We will start Cymbalta for the depression, anxiety and fibromyalgia. Discussed risks and benefits and adverse effects of this medication. Short term follow up. (2) Morbid obesity: Code(s): E66.01 - Morbid (severe) obesity due to excess calories Category: Medical Plan: zepbound ordered. We discussed risks and benefits and adverse effects of this medication including nausea, vomiting and increased risk of pancreatitis. Denies any family history of thyroid malignancy. She does have an appointment with endocrinology but we will try to get this approved for her from primary care. (3) AIRAM (obstructive sleep apnea): Comment: (mild AIRAM, AHI 10.1 on 08/22/17 sleep study) Code(s): G47.33 - Obstructive sleep apnea (adult) (pediatric) Category: Medical Plan: Encouraged her to use her CPAP machine as directed. I have ordered zepbound (4) Hypertension: Code(s): I10 - Essential (primary) hypertension Category: Medical Qualifiers: Hypertension type: primary hypertension Qualified Code(s): I10 - Essential (primary) hypertension Plan: WNL. Continue current regimen (5) GERD (gastroesophageal reflux disease): Code(s): K21.9 - Gastro-esophageal reflux disease without esophagitis Category: Medical Qualifiers: Esophagitis presence: without esophagitis Qualified Code(s): K21.9 - Gastro-esophageal reflux disease without esophagitis Plan: We will switch to Nexium. Advised to follow with GI. Medications: New duloxetine (Cymbalta) 20 mg PO BID 60 caps 1RF esomeprazole magnesium (Nexium) 20 mg PO BID 60 caps 4RF tirzepatide (weight loss) (Zepbound) 2.5 mg (0.5 mL) subcut QWEEK 2 mL 2RF Discontinued pantoprazole Discontinued Reason: Doctor's Order 40 mg PO DAILY 90 days 90 tabs 3RF K21.9 - Gastro-esophageal reflux disease without esophagitis
--- OUTSIDE RECORDS SUMMARY | 2024-06-14 09:39 | XMS_ITS | Continuity of Care Document ---
[facility] Address [address] [place] [address]- Care Team Providers Care Chassis Engineer Name Role Phone Josiah Aaron MD, Trisha Olivo Primary Care Physician [phone] Encounter [facility] Date(s): 05/20/24 - 05/20/[address] [address]- Encounter Diagnosis Abdominal pain(Final) - 05/20/24 Discharge Disposition: A-D/C Home Attending Physician: Antoine Patel MD Admitting Physician: Antoine Patel MD Referring Physician: Not on Staff, Referring MD Encounter Type: Disch ES Allergies, Adverse Reactions, Alerts Substance Criticality Severity Reaction Reaction Severity Status Flexeril Active Medications Dilaudid Inj 0.5 mg, Injection, IV Push Slowly, Once, STAT, 05/20/24 1:21:00 PM EST, Stop date 05/20/24 1:53:40 PMEST Start Date: 05/20/24 Stop Date: 05/20/24 Status: Completed Repeat number: 1 famotidine 20 mg oral tablet 20 mg, 1, tablet, By Mouth, 2 times a day, # 60 tablet, Refills 0, Tot. Refills 0, Maintenance, 05/20/24 2:00:00 PM EST, Route to Pharmacy Electronically, [facility]/pharmacy #[id number], Partial fill upon patientrequest if the prescription is for a schedule II opioid drug., 168, cm, 05/20/24 10:17:00 EST, Height, 118, kg, 05/20/24 10:17:00 EST, Dry Weight Start Date: 05/20/24 Status: Ordered Quantity: 60.0 Unit: tablet Repeat number: 1 morphine 15 mg oral tablet, immediate release 1 tablet = 15 mg, By Mouth, Every 4 hours, PRN as needed for pain, # 10 tablet, 0 Refills, Acute 05/21/24 2:01:00 PM EST, 05/20/24 2:01:00 PM EST, Tablet, [facility]/pharmacy #[id number], Partial fill upon patient request if the prescription is for a schedule II opioid drug., 168, cm, 05/20/24 10:17:00 EST, Height, 118, kg, 05/20/24 10:17:00 EST, Dry Weight Start Date: 05/20/24 Stop Date: 05/21/24 Status: Ordered Quantity: 10.0 Unit: tablet Repeat number: 1 ondansetron 4 mg oral tablet 1 tablet = 4 mg, By Mouth, Every 8 hours, # 12 tablet, 0 Refills, Acute 05/21/24 2:01:00 PM EST, 05/20/24 2:01:00 PM EST, Tablet, [id number], Partial fill upon patient request if the prescription is for a schedule II opioid drug., 168, cm, 05/20/24 10:17:00 EST, Height, 118, kg, 05/20/24 10:17:00 EST, Dry Weight Start Date: 05/20/24 Stop Date: 05/21/24 Status: Ordered Quantity: 12.0 Unit: tablet Repeat number: 1 sucralfate 1 gm oral tablet 1 Gm, 1, tablet, By Mouth, 2 times a day, # 180 tablet, Refills 0, Tot. Refills 0, Maintenance, 05/20/24 2:00:00 PM EST, Route to Pharmacy Electronically, [id number], Partial fill upon patientrequest if the prescription is for a schedule II opioid drug., 168, cm, 05/20/24 10:17:00 EST, Height, 118, kg, 05/20/24 10:17:00 EST, Dry Weight Start Date: 05/20/24 Status: Ordered Quantity: 180.0 Unit: tablet Repeat number: 1 Problem List Condition Confirmation Course Effective Dates Status Health St atus Informant Severe obesity Confirmed Active Results Radiology Reports * Exam Date Time Procedure Performing Provider Status 05/20/24 1:[address] Abd/Pelvis W/ IV + Oral Contrast Radha Foss; Auth (Verified) Notes: (CT Abd/Pelvis W/ IV + Oral Contrast) Reason For Exam: epigastric abdominal pain;Other: RESULT: CT Abd/Pelvis W/ IV + Oral Contrast CT Abd/Pelvis W/ IV + Oral Contrast Hx of Present Illness: Georgian speaking only c o epigastric pain x 1 week c o n v d states light blood in vomit yesterday ayla blood in stools abd is round tender to palpate, ayla dysuira hematuira denies gi hx denies fevers chills ayla cp denies sob afebrile in triage; Reason: Other:; epigastric abdominal pain; Clinical Question(s): Biliary Obstruction; Order Comment: DUE AT 1PM TECHNIQUE: Spiral CT through the abdomen and pelvis with IV contrast formatted in 3 planes. 100 cc of Isovue 300 was administered intravenously. This study was performed with oral contrast. Weight-based protocol using automatic tube modulation was used to optimize exposure parameters. CTDIvol Body: 28.54 mGy, DLP Body: 1553 mGy*cm. COMPARISON: None. FINDINGS: Electric [employer] [place] Findings, Lines and Tubes: None. Visualized Chest: Minimal left basilar atelectasis. Trace pericardial fluid. Diaphragm: Tiny hiatal hernia. Liver: There is diffuse hepatic steatosis. Focal area of low attenuation anteriorly in segment 4 isgeographic on coronal reconstruction and is likely an area of more focal fatty infiltration. Gallbladder: Absent consistent with prior cholecystectomy. Bile ducts: No biliary ductal dilation. Spleen: Normal. Pancreas: No peripancreatic stranding or fluid. Adrenal glands: No mass or thickening. Kidneys and ureters: No solid renal mass. No hydroureteronephrosis. No nephrolithiasis. Bladder: Nondistended urinary bladder. Reproductive organs: Post surgical changes. Stomach, small bowel, and large bowel: No bowel obstruction. No evidence of acute inflammation. Enteric contrast is present in the small bowel loops. The distal colon is nondistended. Appendix: No evidence for appendicitis. Peritoneum and retroperitoneum: Very trace free fluid in the pelvis which can be physiologic. No omental or mesenteric lesions. Lymph nodes: No enlarged lymph nodes. Blood vessels: Normal. No aneurysm. No evidence of venous thrombosis. Abdominal and pelvic wall: No acute abnormality. Small fat-containing umbilical hernia. Bones: No acute abnormality. IMPRESSION: No acute abnormality on CT of the abdomen and pelvis. Hepatic steatosis. WSN: [id number] Ordering Physician: Antoine Patel Dictated By: Tamara Arambula MD Dictated Date/Time: 05/20/24 1:31 pm Reviewed By: Tamara Arambula MD Signed By: Tamara Arambula MD Signed Date/Time: 05/20/24 1:31 pm Transcribed By: IVETT Transcribed Date/Time: 05/20/24 1:20 pm Vital Signs Most recent to oldest [Reference Range]: 1 2 3 Height 168 cm (05/20/24 2:14 PM) 168 cm (05/20/24 10:17 AM) Weight 118 kg (05/20/24 2:14 PM) 118 kg (05/20/24 10:17 AM) Oxygen Saturation [94-100 %] 96 % (05/20/24 2:14 PM) 99 % (05/20/24 10:17 AM) Pulse Rate [55-90 bpm] 74 bpm (05/20/24 2:14 PM) 89 bpm (05/20/24 10:17 AM) Body Mass Index [18.5-24.99 kg/m2] 41.81 kg/m2 *>HHI* (05/20/24 2:14 PM) Blood Pressure [90-138/55-84 mm Hg] 113/68mm Hg (05/20/24 2:14 PM) 132/89mm Hg (05/20/24 10:17 AM) Respiratory Rate [16-30 br/min] 18 br/min (05/20/24 2:14 PM) 18 br/min (05/20/24 1:53 PM) 18 br/min (05/20/24 10:17 AM) Temperature [96.8-100.4 DegF] 98.4 DegF (05/20/24 10:17 AM) Mode of Delivery (Oxygen) Room air (05/20/24 2:14 PM) Room air (05/20/24 10:17 AM) Blood pressure sites Arm, left (05/20/24 2:14 PM) Arm, left (05/20/24 10:17 AM) Temperature Route Oral (05/20/24 10:17 AM) Dry Weight 118 kg (05/20/24 2:14 PM) 118 kg (05/20/24 10:17 AM) Weight Obtained Via Standing scale (05/20/24 10:17 AM) Dry Weight Obtained Via Standing scale (05/20/24 10:17 AM) Note * Antoine Patel MD: PERFORM Event Display: Patient Education Leaflets Authored Date: [id number] Gastritis or Ulcer (No Antibiotic Treatment) ?? [id number] Gastritis o ??lcera, sin tratamiento con antibi??ticos La gastritis es la irritaci??n y la inflamaci??n del revestimiento del est??khadijah. Mcgill significa que el revestimiento est?? li e hinchado. Puede causar llagas poco profundas en el revestimiento delest??khadijah llamadas erosiones. Yamilka ??lcera es yamilka llaga m??s profunda en el revestimiento del est??khadijah. Tambi??n puede ocurrir en la primera parte del intestino boogie (duodeno).?? Las causas y los s??ntomas de la gastritis y las ??lceras son muy similares. Las causas y los factores de riesgo de ambos problemas pueden incluir: ??? Uso a maritza plazo de f??rmacos antiinflamatorios no esteroideos (ROB), josephine aspirina e ibuprofeno. ??? Infecci??n por bacterias H. pylori. ??? Consumo de tabaco. ??? Consumo de alcohol. ??? Otras afecciones, josephine trastornos inmunitarios, ciertos medicamentos, josephine suplementos de regla en dosis altas, y drogas ilegales, josephine la coca??na. Los s??ntomas de ambos problemas pueden incluir: ??? Dolor sordo o con ardor en la parte superior del abdomen. ??? P??rdida del apetito. ??? Acidez estomacal o malestar estomacal. ??? Eructos frecuentes. ??? Sensaci??n de hinchaz??n. ??? N??useas con o sin v??mitos. Probablemente se haya realizado yamilka evaluaci??n para ayudar a encontrar la causa exacta y el alcance de norris problema. Mcgill puede anton incluido antecedentes m??dicos, ex??menes y ciertas pruebas. Los resultados mostraron que norris problema no es por la infecci??n por H. pylori; es posible que no necesite antibi??ticos josephine parte de norris tratamiento. Si norris problema es gastritis o yamilka ??lcera, a??n deber?? maribel otros medicamentos. Tambi??n deber?? seguir las instrucciones para ayudar a reducir la irritaci??n estomacal de modo que norris est??khadijah pueda sanar.??Es posible que norris proveedor de atenci??n m??dica le aconseje dejar de fumar y dejar de beber alcohol. Si determinados medicamentos Cuidados en el hogar ??? [place] los medicamentos que le recetaron exactamente seg??n las indicaciones. Los medicamentos comunes utilizados para tratar la gastritis incluyen: o Anti??cidos.??Ayudan a neutralizar los ??cidos normales del est??khadijah. o o Bloqueadores H2. Reducen la cantidad de ??cido queproduce el est??khadijah. o Inhibidores de la bomba de protones.??Disminuyen el ??cido estomacal de manera m??s eficaz que los bloqueadores??H2. o Subsalicilato de bismuto.??Ayuda a proteger el revestimiento del est??khadijah del ??cido. ??? No tome moiz??n ROB haseeb norris tratamiento. Si lisa ROB para ayudar a tratar otros problemas de tsering, informe a norris proveedor de atenci??n m??dica. Es posible que deba ajustar norris plan de medicamentos o cambiar la dosis. ??? No consuma tabaco ni alcohol. Estos productos pueden aumentar la cantidad de ??cido que produce el est??khadijah. Mcgill puede retrasar la curaci??n. Tambi??n puede empeorar los s??ntomas. ??? Consuma muchas frutas y verduras y otras etienne de fibra alimentaria. ?? Atenci??n de seguimiento Boom un seguimiento con norris proveedor de atenci??n m??dica o seg??n se lo indiquen. En algunos casos, es posible que necesite m??s pruebas. ?? Cu??ndo consultar al m??dico Llame a norris proveedor de atenci??n m??dica de inmediato ante cualquiera de estas situaciones: ??? Fiebre de 100,4?F (38?C) o m??s, o seg??n las indicaciones de norris proveedor de atenci??n m??dica.??? Dolor de est??khadijah que empeora o se mueve a la parte inferior derecha del abdomen o hacia la espalda. ??? Cansancio extremo (fatiga). ??? Debilidad o mareos. ??? P??rdida de peso continua. ??? V??mitos frecuentes, linda en el v??marian o yamilka sustancia similar al caf?? en el v??marian. ??? Heces negras, alquitranadas o sanguinolentas. ??? Empeoramiento de los s??ntomas o s??ntomas nuevos. ?? Llame al 911. Llame al 911??si se presenta cualquiera de estos casos: ??? Aparece dolor tor??cico o empeora, o seextiende a la espalda, el emre, el hombro o el brazo. ??? Frecuencia card??edelmira inusualmente r??pida. ??? Problemas para respirar o tragar. ??? Confusi??n. ??? Somnolencia extrema o dificultad para despertarse. ??? Desmayos. ??? Grandes cantidades de linda presentes en los v??mitos o las heces. ?? Last Reviewed Date: 2023 ?? [id number] [employer]. Todos los derechos reservados. Esta informaci??n no pretende sustituir la atenci??n m??dica profesional. S??lo norris m??dico puede diagnosticar y tratar un problema de tsering. ?? * Antoine aPtel MD: PERFORM Event Display: Patient Education Leaflets Authored Date: [id number] Epigastric Pain (Uncertain Cause) ?? [id number] Dolor epig??strico (causa incierta) El dolor epig??strico es dolor en la parte superior del abdomen. Puede ser un signo de enfermedad. Las causas frecuentes incluyen las siguientes: ??? Reflujo de ??cido (el ??cido del est??khadijah sube hacia el es??fago) ??? Gastritis (irritaci??n del revestimiento del est??khadijah). La mayor??a de las veces, es provocada por la administraci??n de aspirinas o medicamentos antinflamatorios no esteroideos (ROB), josephine ibuprofeno, por la bacteria H.??P ylori o por el consumo frecuente de alcohol. ?lcera p??ptica ??? Inflamaci??n del p??ncreas (pancreatitis) ??? C??lculos biliares ??? Inflamaci??n de la ves??cula biliar (colecistitis) El dolor puede ser sordo o quemante. Puede irradiarse hacia el pecho o la espalda. Puede naton otros s??ntomas, josephine eructos, distensi??n abdominal, c??licos o jevon de hambre. Puede anton p??rdidade peso o poco apetito, n??useas o v??mitos. Puesto que el motivo de norris dolor es incierto, quiz??s se necesiten pruebas adicionales. En algunos casos el proveedor de atenci??n m??dica tratar?? la afecci??n m??s probable para jocy si mejora antesde hacer pruebas adicionales. Hable con el proveedor para que le diga qu?? es lo m??s adecuado parausted. Cuidados en el hogar Medicamentos ??? Los anti??cidos ayudan a neutralizar los ??cidos normales en el est??khadijah. Si no le gusta el l??quido, puede probar las formas masticables. Es posible que note que algunos le funcionan mejor que otros. El uso excesivo puede provocar diarrea o estre??imiento. Llame al proveedor si tiene preguntas o inquietudes sobre cualquiera de sergey medicamentos o sergey efectos secundarios. ??? Los bloqueadoresde ??cido o (bloqueadores??H2) disminuyen la producci??n de ??cido. Algunos de estos son la cimetidina y la famotidina. ??? Los inhibidores de ??cido o inhibidores de la bomba de protones disminuyen la producci??n de ??cido de forma diferente a los bloqueadores. Quiz??s le funcionen mejor, owen pueden tardar un poco m??s en hacer efecto. Algunos de ellos son omeprazol, lansoprazol, pantoprazol, rabeprazol y esomeprazol. Muchos de estos medicamentos son de venta nixon o se puede conseguir norris f??rmula gen??jaja. ??? [place] un anti??cido de 30 a 60??minutos despu??s de comer y a la hora de acostarse, owen no a la misma hora que un bloqueador de ??cido. ??? Trate de no maribel antinflamatorios no esteroides (ROB). La aspirina tambi??n puede provocar problemas, owen si la lisa para el coraz??n o por otro motivo m??dico, hable con el proveedor de atenci??n m??dica antes de suspenderla. Alimentaci??n ??? Si ciertos alimentos parecen provocar dolor, trate de evitarlos. Los s??ntomas rahat gastritis pueden empeorar con ciertas comidas. Limite o evite las comidas grasosas, fritas o muycondimentadas, as?? josephine el caf??, el chocolate, las mentas y los alimentos muy ??cidos josephine los tomates o las frutas y los jugos c??tricos (naranja, toronja, sanchez??n). ??? Coma despacio y mastique cristina antes de tragar. ??? No consuma alcohol. Mcgill puede irritar el est??khadijah. Si le resulta dif??cil dejar el alcohol, p??alise recursos de tratamiento al proveedor. ??? No ingiera cafe??na ni tabaco. Mcgill puede retrasar la recuperaci??n??y empeorar el problema. ??? Trate de comer comidas keny??as con bocadillos entre yamilka y otra. Evite comer mucho antes de irse a dormir. ??? No coma haseeb 2 o 3??horas antes de acostarse. ??? Levante la cabecera de la cama si sufre s??ntomas haseeb la noche. Mcgill preston que los ??cidos se acumulen en el es??fago. ?? Atenci??n de seguimiento Asista a las citas de seguimiento con norris proveedor de atenci??n m??dica seg??n le hayan indicado. ?? Cu??ndo debe buscar atenci??n m??dica Llame al proveedor de atenci??n m??dica de inmediato ante cualquiera de los siguientes signos o s??ntomas: ??? Dolor de est??khadijah que empeora o se mueve hacia el lado derecho inferior del abdomen ???V??mitos frecuentes (no puede retener l??quidos en el est??khadijah) ??? Linda en las heces o en el v??marian (color rojizo o negruzco) ??? Fiebre de 100.4?F (38?C) o superior, o seg??n le indique el proveedor de atenci??n m??dica ??? Hinchaz??n abdominal ??? S??ntomas que empeoran o nuevos s??ntomas ?? Cu??ndo llamar al?? 911 Llame al?? 911 si tiene algo de lo siguiente: ??? Dolor de pecho que aparece o crsitina empeora o se desplaza hacia la espalda, el emre, los hombros o los brazos ??? Siente debilidad o mareos, se desmaya o tiene problemas para respirar ?? Last Reviewed Date: 2022 ?? [id number] [employer]. Todos los derechos reservados. Esta informaci??n no pretende sustituir la atenci??n m??dica profesional. S??lo norris m??dico puede diagnosticar y tratar un problema de tsering. ?? * Antoine Patel MD: PERFORM Event Display: Patient Education Leaflets Authored Date: [id number] Unknown Causes of Abdominal Pain (Adult) ?? [id number] Unknown Causes of Abdominal Pain (Adult) The exact cause of your belly (abdominal) pain is not clear. Your exam and tests don't suggest a dangerous cause at this time. This does not mean that this is something to worry about. Everyone likesto know the exact cause of the problem. But sometimes with belly pain, there is no clear-cut cause,and this could be a good thing. Your symptoms can be treated, and you should feel better.?? Your condition does not seem serious now. But sometimes the signs of a serious problem may take more time to appear. For this reason,??it's important for you to watch for any new symptoms, problems,??or if your condition gets worse. Over the next few days, the abdominal pain may come and go. Or it may be constant. Other common symptoms can include nausea and vomiting. Sometimes it can be difficult to tell if you feel nauseous. You may just feel bad and not connect that feeling to nausea. Constipation, diarrhea, and a fever maygo along with the pain. The pain may continue even if treated correctly over the following days. Depending on how things go, sometimes the cause can become clear and you may need more??or different treatment. You may also need other evaluations, medicines, or tests. Home care Your healthcare provider may prescribe medicine for pain, symptoms, or an infection. ??Follow the healthcare provider's instructions for taking these medicines. General care ??? Rest as much as you can until your next exam. No strenuous activities. ??? Try to not do anything that may have caused your symptoms. This might be not taking any medicines unless otherwise directed by your healthcare provider. It might be not eating certain foods or doing certain activities. ??? Find positions that ease discomfort. A small pillow placed on your belly may help relieve pain. ??? Something warm on your belly, such as a heating pad, may help, but be careful not to burn yourself. Diet ??? Don???t??force yourself to eat, especially if having cramps, vomiting, or diarrhea. ??? Water is important so you don't get dehydrated. Soup may also be good. Sports drinks may also help, especially if they are not too acidic. Don't drink sugary drinks as this can make things worse. Take liquids in small amounts. Don???t??guzzle them. ??? Caffeine sometimes makes the pain and cramping worse. ??? Don???t take??dairy products if you have vomiting or diarrhea. ??? Don't eat large amounts at a time. Eat several small meals during the day instead of 2 or 3 larger meals. Wait a few minutesbetween bites. ??? Eat a diet low in fiber (called a low-residue diet). Foods allowed include refined breads, white rice, fruit and vegetable juices without pulp, tender meats. These foods will pass more easily through the intestine. ??? Don???t have??whole-grain foods, whole fruits and vegetables,meats, seeds, and nuts, fried or fatty foods, dairy, alcohol and spicy foods until your symptoms goaway. ?? Follow-up care Follow up with your healthcare provider, or as advised, if your pain does not begin to improve in the next 24 hours. ?? Call 911 Call?? 911 if any of these occur: ??? Trouble breathing ??? Confusion ??? Fainting or loss of consciousness ??? Rapid heart rate ??? Seizure ?? When to get medical advice Call your healthcare provider right away if any of these occur: ??? Pain gets worse or moves to theright lower abdomen ??? Vomiting or diarrhea that is new or gets worse ??? Swelling of the abdomen ??? Unable to pass stool for more than??3 days ??? Fever of 100.4??F (38??C) or higher, or as directed by your healthcare provider ??? Blood in vomit or bowel movements (dark red or black color) ??? Ye llow color of eyes and skin (jaundice) ??? Weakness, dizziness ??? Chest, arm, back, neck, or jaw pain ??? Can't keep down medicines, liquids, or water because of too much vomiting ??? If you have a vagina: unexpected vaginal bleeding or missed period ?? Last Reviewed Date: 2023 ?? [id number] [employer]. All rights reserved. This information is not intended as a substitute for professional medical care. Always follow your healthcare professional's instructions. ?? Patient Care team information Care Team Personnel Name: Josiah Aaron MD , Trisha Olivo Position: Reference Physician Member Role: PCP Address: [address] [place] [address] [address] Telecom: Care Team Related Persons Name: NEGAR NICOLE Insurance Providers Guarantor name: [employer] Health Plan Information #: 1 Payer: [employer] Member Number: [id number] Policy Number: [employer] Group Number: [id number] Health Plan Information #: 2 Payer: [employer] Member Number: [id number] Policy Number: [employer] Group Number: [id number]
--- OUTSIDE RECORDS SUMMARY | 2024-06-14 09:39 | XMS_ITS | Clinical Summary ---
Author Organization [address] [place] [address] Address [address] [place] [address] Phone Care Team Providers Care Discovery Manager Name Role Phone Trisha Aaron MD Primary Care Provider [phone] Allergies Active Allergy Reactions Criticality Noted Date Comments Cyclobenzaprine 11/02/2018 Medications triamcinolone (KENALOG) 0.025 % cream APPLY TO AFFECTED AREA 3 TO 4 TIMES A DAY NEEDED FOR IRRITATION 4 Active diclofenac (VOLTAREN) 1 % topical gel APPLY 4 G TOPICALLY 3 TIMES DAILY. 4 Active meloxicam (MOBIC) 15 mg tablet TOME ABHISHEK TABLETA TODOS LOS DAVALOS 3 Active oxyCODONE-aceta minophen (PERCOCET) 5-325 mg per tablet Take 1 tablet by mouth every 4 hours as needed for Pain for up to 7 days. 1 Active naproxen (NAPROSYN) 500 mg tablet Take 1 tablet (500 mg total) by mouth 2 (two) times a day. 9 Active cetirizine (ZyrTEC) 10 mg tablet TOME ABHISHEK TABLETA TODOS LOS D? 9 Active citalopram (CeleXA) 40 mg tablet Take 40 mg by mouth daily. 9 Active diclofenac (VOLTAREN) 75 mg EC tablet TAKE 1 TABLET WITH FOOD OR MILK TWICE A DAY ORALLY 30 9 Active fluocinonide (LIDEX) 0.05 % topical solution APLIQUE AL ?LYNDA AFECTADA DOS VECES AL D?A FOR 2 WEEKS BREAK 1 WEEK AND REPEAT CUANDO SEA NECESARIO 9 Active HYDROcodone-sami taminophen (NORCO) 5-325 mg per tablet TOME ABHISHEK TABLETA POR V?A ORAL CADA OCHO HORAS CUANDO SEA NECESARIO 9 Active ketoconazole (NIZORAL) 2 % shampoo PLEASE SEE ATTACHED FOR DETAILED DIRECTIONS 9 Active predniSONE (DELTASONE) 20 mg tablet TOME ABHISHEK TABLETA TODOS LOS D? 9 Active zolpidem (AMBIEN) 5 mg tablet Take by mouth at bedtime as needed. Active tiotropium (Spiriva Respimat) 2.5 mcg/actuation inhalation spray Inhale 5 mcg into the lungs daily for 30 days. 9 Active montelukast (SINGULAIR) 10 mg tablet Take [...] (PROTONIX) 40 mg packet Take by mouth. Activ e fluticasone-fito meterol (ADVAIR DISKUS) 250-50 mcg/dose diskus inhaler Inhale 1 Puff into the lungs every 12 hours. Active albuterol sulfate (ProAir RespiClick) 90 mcg/actuation aerosol powdr breath activated Inhale 2 Puffs into the lungs 4 times daily as needed. Active budesonide-form oteroL (SYMBICORT) 80-4.5 mcg/actuation inhaler Inhale 2 Puffs into the lungs every 12 hours. This medication has inhaler steroid: Rinse mouth with water and expectorate after each dose to prevent oral/esophageal candidiasis or fungal infection. 8 Active albuterol 2.5 mg /3 mL (0.083 %) nebulizer solution Take 1 Vial by nebulization every 4 hours as needed for Wheezing for up to 30 days. 8 Active miscellaneous medical supply misc MISC. DEVICES (BED WEDGE) MISC 1 Device by Does not apply route at bedtime. 9 Active Active Problems Problem Noted Date Diagnosed Date Depression 01/27/2024 Morbid obesity with BMI of 40.0-44.9, adult 01/04 Asthma 04/06/2018 AIRAM (obstructive sleep apnea) 04/06/2018 Overview (01/27/2024): 10/2018 Home Sleep Study did not reveal sleep apnea or nocturnal hypoxia. Immunizations Name Administration Dates Next Due Influenza Quadravalent, MDCK , 0.5ml, preservative free (Flucelvax) 6mo and older 04/06/2018 Surgical History Surgery Date Site/Laterality Comments OTHER SURGICAL HISTORY PROCEDURE: [place] ARTHRS WRST EXC&/RPR TRIANG FIBROCART&/JOINT SECTION PROCEDURE: [...] drink = 0.6 oz pur e alcohol) Comments Unknown Sex and Gender Information Value Date Recorded Sex Assigned at Not on file Legal Sex Female 10:45 PM EST Gender Identity Not on file Sexual Orientation Not on file Obstetrics History Last Filed [...] PM EDT Office Visit Orthopedic Surgery - [place] [address] 175 [facility] 250 [place] [phone] Kenneth Bucio, DPM 175 [facility] 250 [place] [address] Health Maintenance Due Date Last Done Comments Breast Cancer Screening 1979 DTaP,Tdap,and Td Vaccines (1 - Tdap) 1998 Hepatitis B Vaccines (1 of 3 - 19+ 3-dose series) 1998 Pneumococcal Vaccine: Pediatrics (0 to 5 Years) and At-Risk Patients (6 to 64 Years) (1 of 2 - PCV) 1998 Cervical Cancer Screening: Pap Smear 2000 [...] patient's age to complete this topic Meningococcal B Vacine Aged Out No lo nger eligible based on patient's age to complete this topic RSV Immunization Patients Under 20 months Aged Out No longer eligible based on patient's age to complete this topic Varicella Vaccines Aged Out No longer eligible based on patient's age to complete this topic Insurance [place] [address] PLAN Care Teams Discovery Manager Relationship Specialty Start Date End Date Trisha Aaron MD 2 [facility] , [address] Physician Associ D/B/A: [facility] AURORA Carlin PCP - General Internal Medicine 12/31/17
[2024-06-14 09:43] VITALS: BP 114/72; PULSE 62; RESP 16; O2SAT 99; BMI 42.5
== END 2024-06-14 10:40 | disposition home or self-care (01) ==
LOC: HO.HMCFM 09:05
PROVIDERS: PCP Internal Medicine; Visit Provider Physician Assistant
DX: I10 Essential (primary) hypertension (principal); F33.0 Major depressive disorder, recurrent, mild; E66.01 Morbid (severe) obesity due to excess calories; Z68.41 Body mass index [BMI] 40.0-44.9, adult; G47.33 Obstructive sleep apnea (adult) (pediatric); K21.9 Gastro-esophageal reflux disease without esophagitis

== ENCOUNTER → 2024-06-14 09:04 | Outpatient (BNVA) | payer OTHER, SELFPAY | PROVIDERS: PCP Internal Medicine; Visit Provider Physician Assistant | DX: F33.0 Major depressive disorder, recurrent, mild (principal); E66.01 Morbid (severe) obesity due to excess calories; G47.33 Obstructive sleep apnea (adult) (pediatric); I10 Essential (primary) hypertension; K21.9 Gastro-esophageal reflux disease without esophagitis | CPT/HCPCS: 96127; 96160; 99212 ==

== ENCOUNTER 2024-06-16 10:29 | Outpatient (REF) | payer OTHER, SELFPAY ==
[2024-06-16 10:44] LABS: MANUAL DIFF FLAG NO
[2024-06-16 11:45] LABS: Basophils Percent Auto 0.5 % (0-2); Eosinophils Absolute Auto 0.2 X10*3/uL (0.0-0.4); Eosinophils Percent Auto 3.8 % (0-4); Hematocrit 41.8 % (37.0-47.0); Hemoglobin 14.1 g/dl (12.0-16.0); Imm Gran Abs Auto 0.03 X10*3/uL (0.00-0.03); Imm Gran Pct Auto 0.5 % (0.0-0.4); Lymphocytes Absolute Auto 1.4 X10*3/uL (1.2-4.9); Lymphocytes Percent Auto 24.2 % (20-40); Mean Corpuscular HGB Conc 33.7 g/dl (31.0-35.0); Mean Corpuscular Hemoglobin 30.2 pg (27.0-33.0); Mean Corpuscular Volume 89.5 fL (80.0-98.0); Mean Platelet Volume 9.2 fL (9.4-12.3); Monocytes Absolute Auto 0.4 X10*3/uL (0.1-1.2); Monocytes Percent Auto 6.3 % (2-11); Neutrophils Absolute Auto 3.6 x10*3/uL (2.0-8.3); Neutrophils Percent Auto 64.7 % (45-73); Platelet Count 331 X10*3/uL (160-400); Red Blood Count 4.67 X10*6/uL (4.20-5.50); Red Cell Distribution Width 13.2 % (11.0-16.0); White Blood Count 5.6 X10*3/uL (4.8-10.8)
--- OUTSIDE RECORDS SUMMARY | 2024-06-16 11:53 | XMS_ITS | Encounter Summary ---
[facility] Address [address] [place] [address] Care Team Providers Care Rod Machine Operator Name Role Phone Trisha Aaron MD Primary Care Provider Mona bui Encounter Details Date Type Department Care Team Description 09/28/2018 Cook Helper Dessert Report Medical Records [address] [place] [address] Trisha Aaron MD Social History Tobacco Use Types Packs/Day Years Used Date Smoking Tobacco: Never Smokeless Tobacco: Never Sex Assigned at Date Recorded Not on file documented as of this encounter Plan of Treatment Not on file documented as of this encounter Visit Diagnoses Not on filedocumented in this encounter Care Teams Rod Machine Operator Relationship Specialty Start Date End Date Trisha Aaron MD PCP - General Internal Medicine 12/31/17 documented as of this encounter
--- OUTSIDE RECORDS SUMMARY | 2024-06-16 11:53 | XMS_ITS | Clinical Summary ---
Author Organization [facility] Address [address] [place] [address] Care Team Providers Care Area Forester Name Role Phone Trisha Aaron MD Primary [...] at bedtime as needed. 0 Active Tiotropium [place] Monohydrate (SPIRIVA RESPIMAT) 2.5 MCG/ACT Aero Soln [...] 11/02/2018 SOCIAL NEEDS SCREENING 04/05/2024 Care Teams Area Forester Relationship Specialty Start Date End Date Trisha Aaron MD PCP - General Internal Medicine 12/31/17
--- OUTSIDE RECORDS SUMMARY | 2024-06-16 11:53 | XMS_ITS | Encounter Summary ---
Author Organization [facility] Address [address] [place] [address] Care Team Providers Care Diagnostic Assistant Name Role Phone Trisha Aaron MD Primary Care Provider Mona bui Reason for Visit * Reason Comments E-prescribe Rx Request Encounter Details Date Type Department Care Team Description 04/27/2023 Refill [facility] [address] [place] [phone] Kenneth Bucio DPM E-prescribe Rx Request [...] on filedocumented in this encounter Care Teams Diagnostic Assistant Relationship Specialty Start Date End Date Trisha Aaron MD PCP - General Internal Medicine 12/31/17 documented as of this encounter
--- OUTSIDE RECORDS SUMMARY | 2024-06-16 11:53 | XMS_ITS | Encounter Summary ---
Author Organization [facility] Address [address] [place] [address] Care Team Providers Care Tool Room Lathe Operator Name Role Phone Trisha Aaron MD Primary Care Provider Mona bui Encounter Details Date Type Department Care Team Description 05/09/2020 Orders Only OBGYN - [place] [address] [place] [address] Ya Ramírez DO Irregular menstrual cycle (Primary [...] (HCC) documented in this encounter Care Teams Tool Room Lathe Operator Relationship Specialty Start Date End Date Trisha Aaron MD PCP - General Internal Medicine 12/31/17 documented as of this encounter
--- OUTSIDE RECORDS SUMMARY | 2024-06-16 11:53 | XMS_ITS | Encounter Summary ---
Author Organization [facility] Address [address] [place] [address] Care Team Providers Care Charging Crane Operator Name Role Phone Trisha Aaron MD Primary Care Provider Mona bui Encounter Details Date Type Department Care Team Description 04/11/2019 Release of Information Medical Records [address] [place] [id number] Abstract, Provider Social History Tobacco Use Types [...] on filedocumented in this encounter Care Teams Charging Crane Operator Relationship Specialty Start Date End Date Trisha Aaron MD PCP - General Internal Medicine 12/31/17 documented as of this encounter
--- OUTSIDE RECORDS SUMMARY | 2024-06-16 11:53 | XMS_ITS | Encounter Summary ---
Author Organization [facility] Address [facility] [place] [address] Care Team Providers Care Senior Financial Reporting Analyst Name Role Phone Trisha Aaron MD Primary Care Provider Mona bui Encounter Details Date Type Department Care Team Description 04/28/2019 Hospital Medical Records 4 [place] [address] Ya Ramírez, Social History Tobacco Use Types [...] on filedocumented in this encounter Care Teams Senior Financial Reporting Analyst Relationship Specialty Start Date End Date Trisha Aaron MD PCP - General Internal Medicine 12/31/17 documented as of this encounter
--- OUTSIDE RECORDS SUMMARY | 2024-06-16 11:53 | XMS_ITS | Encounter Summary ---
Author Organization [facility] Address [address] [place] [address] Care Team Providers Care Technical Solutions Engineer Name Role Phone Trisha Aaron MD Primary Care Provider Mona bui Reason for Visit * Reason Comments E-prescribe Rx Request Encounter Details Date Type Department Care Team Description 04/03/2019 Refill OBGYN - 271 [facility] [address] [place] [address] Nohemy Malhotra CNM 175 [place] [address] E-prescribe Rx Request Social History Tobacco Use Types Packs/Day Years Used Date Smoking Tobacco: Never Smokeless Tobacco: Never Alcohol Use Standard Drinks/Week Comments No 0 (1 standard drink = 0.6 oz pur e alcohol) Sex Assigned at Date Recorded Not on file documented as of this encounter Miscellaneous Notes * Telephone Encounter - Ana Maria Macdonald - 04/03/2019 11:01 AM EST WHEN WAS THE PATIENTS LAST ANNUAL GRAPHIC DESIGN ASSISTANT EXAM? New pt no ag on file Does patient have an upcoming appointment? Yes 05/18/18 (THE MEDICATION REQUESTED IS ON THE MED LIST ABOVE) Did you check the Pharmacy information above?: YES Indicate how soon the patient needs the script: BY THE END OF THE DAY Patient would like script to be: E-PRESCRIBED/FAXED TO PHARMACY Is the doctor here today?: NO Can the message wait until the doctor returns?: NO Has the patient been told that the prescription will not be filled until the end of the day? NO Payor: [email or web address] FFS / Plan: [facility] / Product Type: MEDICAID RISK documented in this encounter Plan of Treatment Not on file documented as of this encounter Visit Diagnoses Not on filedocumented in this encounter Care Teams Technical Solutions Engineer Relationship Specialty Start Date End Date Trisha Aaron MD PCP - General Internal Medicine 12/31/17 documented as of this encounter
--- OUTSIDE RECORDS SUMMARY | 2024-06-16 11:53 | XMS_ITS | Encounter Summary ---
Author Organization [facility] Address [address] [place] [address] Care Team Providers Care Yardage Tufting Machine Operator Name Role Phone Trisha Aaron MD Primary Care Provider Mona bui Encounter Details Date Type Department Care Team Description 11/03/2018 Orders Only Medical Records [address] [place] [address] Bryan Sheehan MD Social History Tobacco Use [...] on filedocumented in this encounter Care Teams Yardage Tufting Machine Operator Relationship Specialty Start Date End Date Trisha Aaron MD PCP - General Internal Medicine 12/31/17 documented as of this encounter
--- OUTSIDE RECORDS SUMMARY | 2024-06-16 11:53 | XMS_ITS | Encounter Summary ---
Author Organization [facility] Address [address] [place] [address] Care Team Providers Care Brasswind Instrument Repairer Name Role Phone Trisha Aaron MD Primary Care Provider Mona bui Reason for Visit * Reason Comments E-prescribe Rx Request Encounter Details Date Type Department Care Team Description 06/30/2023 Refill [facility] [address] [place] [address] [facility] [address] [place] [address] E-prescribe Rx Request Social History Tobacco Use Types Packs/Day Years Used Date Smoking Tobacco: Never Smokeless Tobacco: Never Alcohol Use Standard Drinks/Week Comments No 0 (1 standard drink = 0.6 oz pur e alcohol) Sex Assigned at Date Recorded Not on file documented as of this encounter Miscellaneous Notes * Telephone Encounter - Gracie Delarosa L.P.N. - 06/30/2023 2:40 PM EDT Rx request for Triamcinolone 0.025% cream. Last seen with Camilo on 04/15/23 for problem visit. Please refill if appropriate. Thank you. * Telephone Encounter - Bárbara Denson - 06/30/2023 1:26 PM EDT WHEN WAS THE PATIENTS LAST ANNUAL JIGGER ARTISAN EXAM? ? Does patient have an upcoming appointment? No Reminder letter sent today (THE MEDICATION REQUESTED IS ON THE MED [...] filled until the end of the day? YES Payor: [facility] [employer] [facility] FFS / Plan: [facility] / Product Type: MEDICAID RISK documented in this encounter Plan of Treatment Not on file documented as of this encounter Visit Diagnoses Not on filedocumented in this encounter Care Teams Brasswind Instrument Repairer Relationship Specialty Start Date End Date Trisha Aaron MD PCP - General Internal Medicine 12/31/17 documented as of this encounter
--- OUTSIDE RECORDS SUMMARY | 2024-06-16 11:53 | XMS_ITS | Encounter Summary ---
Author Organization [facility] Address [address] [place] [address] Care Team Providers Care Clinic Office Manager Name Role Phone Trisha Aaron MD Primary Care Provider Mona bui Reason for Visit * Reason Onset Date Comments Information Needed 05/16/2019 Encounter Details Date Type Department Care Team Description 05/16/[address] [employer] [id number] Trisha Aaron MD Information Needed Social History Tobacco Use Types Packs/Day Years [...] on filedocumented in this encounter Care Teams Clinic Office Manager Relationship Specialty Start Date End Date Trisha Aaron MD PCP - General Internal Medicine 12/31/17 documented as of this encounter
--- OUTSIDE RECORDS SUMMARY | 2024-06-16 11:53 | XMS_ITS | Encounter Summary ---
Author Organization [facility] Address [address] [place] [address] Care Team Providers Care Postpartum Rn Name Role Phone Trisha Aaron MD Primary Care Provider Mona bui Reason for Visit * Reason Comments E-prescribe Rx Request Encounter Details Date Type Department Care Team Description 02/22/2023 Refill [facility] [address] [place] [phone] Kenneth Bucio DPM E-prescribe Rx Request [...] on filedocumented in this encounter Care Teams Postpartum Rn Relationship Specialty Start Date End Date Trisha Aaron MD PCP - General Internal Medicine 12/31/17 documented as of this encounter
--- OUTSIDE RECORDS SUMMARY | 2024-06-16 11:53 | XMS_ITS | Encounter Summary ---
Author Organization [facility] Address [address] [place] [address] Care Team Providers Care Vp Scientific Name Role Phone Trisha Aaron MD Primary Care Provider Mona bui Reason for Visit * Reason Comments E-prescribe Rx Request Encounter Details Date Type Department Care Team Description 11/10/2022 Refill [facility] [address] [place] [phone] Kenneth Bucio DPM E-prescribe Rx Request Social [...] on filedocumented in this encounter Care Teams Vp Scientific Relationship Specialty Start Date End Date Trisha Aaron MD PCP - General Internal Medicine 12/31/17 documented as of this encounter
--- OUTSIDE RECORDS SUMMARY | 2024-06-16 11:53 | XMS_ITS | Clinical Summary ---
Author Organization [address] [place] [address] Address [address] [place] [address] Phone Care Team Providers Care Sociology Instructor Name Role Phone Trisha Aaron MD Primary Care Provider [phone] Allergies Active Allergy Reactions Criticality Noted Date [...] Date Site/Laterality Comments OTHER SURGICAL HISTORY PROCEDURE: [place] ARTHRS WRST EXC&/RPR TRIANG FIBROCART&/JOINT SECTION PROCEDURE: [...] PM EDT Office Visit Orthopedic Surgery - [place] 250 175 [facility] 250 [place] [phone] Kenneth Bucio, DPM 175 [facility] [address] [place] [address] Health Maintenance Due Date Last Done Comments [...] patient's age to complete this topic Insurance [place] [address] PLAN Care Teams Sociology Instructor Relationship Specialty Start Date End Date Trisha Aaron MD 2 [facility] , [address] Physician Associ D/B/A: [facility] AURORA Carlin PCP - General Internal Medicine 12/31/17
--- OUTSIDE RECORDS SUMMARY | 2024-06-16 11:53 | XMS_ITS | Encounter Summary ---
Author Organization [facility] Address [address] [place] [address] Care Team Providers Care Clinical Nurse Name Role Phone Trisha Aaron MD Primary Care Provider Mona bui Reason for Visit * Reason Onset Date Comments radiology 07/03/2022 MRI appt Encounter Details Date Type Department Care Team Description 07/03/2022 Telephone Radiology - [address] [address] Kenneth Bucio DPM radiology (MRI appt) Social [...] on filedocumented in this encounter Care Teams Clinical Nurse Relationship Specialty Start Date End Date Trisha Aaron MD PCP - General Internal Medicine 12/31/17 documented as of this encounter
--- OUTSIDE RECORDS SUMMARY | 2024-06-16 11:53 | XMS_ITS | Encounter Summary ---
Author Organization [facility] Address [address] [place] [address] Care Team Providers Care Patient Consumer Marketer Name Role Phone Trisha Aaron MD Primary Care Provider Mona bui Encounter Details Date Type Department Care Team Description 02/09/2018 Release of Information Medical Records [address] [place] [id number] Abstract, Provider Social History Tobacco Use Types Packs/Day Years Used Date Smoking Tobacco: Never Smokeless Tobacco: Never Sex Assigned at Date Recorded Not on file documented as of this encounter Plan of Treatment Not on file documented as of this encounter Visit Diagnoses Not on filedocumented in this encounter Care Teams Patient Consumer Marketer Relationship Specialty Start Date End Date Trisha Aaron MD PCP - General Internal Medicine 12/31/17 documented as of this encounter
--- OUTSIDE RECORDS SUMMARY | 2024-06-16 11:53 | XMS_ITS | Encounter Summary ---
Author Organization [facility] Address [address] [place] [address] Care Team Providers Care State Game Protector Name Role Phone Trisha Aaron MD Primary Care Provider Mona bui Reason for Visit * Reason Onset Date Comments Provider Call Back 10/27/2018 Encounter Details Date Type Department Care Team Description 10/27/2018 Telephone Pulmonology - [place] 175 [facility] [address] [place] [address] Bryan Sheehan MD Provider Call [...] on filedocumented in this encounter Care Teams State Game Protector Relationship Specialty Start Date End Date Trisha Aaron MD PCP - General Internal Medicine 12/31/17 documented as of this encounter
--- OUTSIDE RECORDS SUMMARY | 2024-06-16 11:53 | XMS_ITS | Encounter Summary ---
Author Organization [facility] Address [address] [place] [address] Care Team Providers Care Artist'S Representative Name Role Phone Trisha Aaron MD Primary Care Provider Mona bui Encounter Details Date Type Department Care Team Description 07/23/2020 [facility] Medical Records [address] [place] [address] Abstract, Provider Social History Tobacco Use Types [...] on filedocumented in this encounter Care Teams Artist'S Representative Relationship Specialty Start Date End Date Trisha Aaron MD PCP - General Internal Medicine 12/31/17 documented as of this encounter
--- OUTSIDE RECORDS SUMMARY | 2024-06-16 11:53 | XMS_ITS | Encounter Summary ---
Author Organization [facility] Address [facility] [place] [address] Care Team Providers Care Body Worker Name Role Phone Trisha Aaron MD Primary Care Provider Mona bui Encounter Details Date Type Department Care Team Description 06/11/2020 Orders Only Medical Records [address] [place] [address] Ya Ramírez DO Social History Tobacco Use Types Packs/Day Years [...] Name Priority Date/Time Associated Diagnosis Comments OUTSIDE PATHOLOGY Routine 06/06/2020 documented in this encounter Results * OUTSIDE PATHOLOGY (06/06/2020) Ya Ramírez DO OUTSIDE LAB documented in this encounter Visit Diagnoses Not on filedocumented in this encounter Care Teams Body Worker Relationship Specialty Start Date End Date Trisha Aaron MD PCP - General Internal Medicine 12/31/17 documented as of this encounter
--- OUTSIDE RECORDS SUMMARY | 2024-06-16 11:53 | XMS_ITS | Encounter Summary ---
Author Organization [facility] Address [address] [place] [address] Care Team Providers Care Sharepoint Application Developer Name Role Phone Trisha Aaron MD Primary Care Provider Mona bui Reason for Visit * Reason Comments E-prescribe Rx Request Encounter Details Date Type Department Care Team Description 10/20/2023 Refill [facility] [address] [place] [phone] Kenneth Bucio DPM E-prescribe Rx Request Social [...] on filedocumented in this encounter Care Teams Sharepoint Application Developer Relationship Specialty Start Date End Date Trisha Aaron MD PCP - General Internal Medicine 12/31/17 documented as of this encounter
--- OUTSIDE RECORDS SUMMARY | 2024-06-16 11:53 | XMS_ITS | Encounter Summary ---
Author Organization [facility] Address [address] [place] [address] Care Team Providers Care Testing Tech Name Role Phone Trisha Aaron MD Primary Care Provider Mona bui Reason for Visit * Reason Comments E-prescribe Rx Request Encounter Details Date Type Department Care Team Description 03/23/2023 Refill [facility] [address] [place] [phone] Kenneth Bucio DPM E-prescribe Rx Request [...] on filedocumented in this encounter Care Teams Testing Tech Relationship Specialty Start Date End Date Tirsha Aaron MD PCP - General Internal Medicine 12/31/17 documented as of this encounter
--- OUTSIDE RECORDS SUMMARY | 2024-06-16 11:53 | XMS_ITS | Encounter Summary ---
Author Organization [facility] Address [address] [place] [address] Care Team Providers Care Ammunition Storekeeper Name Role Phone Trisha Aaron MD Primary Care Provider Mona bui Encounter Details Date Type Department Care Team Description 02/10/2019 Orders Only OBGYN - [address] [address] Ya Ramírez DO Menorrhagia with regular cycle (Primary Dx) Social History Tobacco Use Types Packs/Day Years Used Date Smoking Tobacco: Never Smokeless Tobacco: Never Alcohol Use Standard Drinks/Week Comments No 0 (1 standard drink = 0.6 oz pur e alcohol) Sex Assigned at Date Recorded Not on file documented as of this encounter Plan of Treatment Not on file documented as of this encounter Visit Diagnoses Diagnosis Menorrhagia with regular cycle- Primary Excessive or frequent menstruation documented in this encounter Care Teams Ammunition Storekeeper Relationship Specialty Start Date End Date Trisha Aaron MD PCP - General Internal Medicine 12/31/17 documented as of this encounter
[2024-06-16 12:26] LABS: Alanine Aminotransferase 29 U/L (0-31); Albumin Level 3.9 g/dL (3.5-5.0); Alkaline Phosphatase 121 U/L (39-117); Anion Gap 11 (12-20); Aspartate Amino Transferase 21 U/L (5-31); Bilirubin Total 0.4 mg/dL (0.0-1.0); Blood Urea Nitrogen 12 mg/dL (9-16); Calcium 8.8 mg/dL (8.4-10.2); Carbon Dioxide 27 mmol/L (22-29); Chloride 107 mmol/L (96-108); Cholesterol 150 mg/dL (<200); Estimated Glomerular Filt Rate > 60; Glucose Fasting 98 mg/dL (60-99); HDL Cholesterol 37 mg/dL (>40); LDL Cholesterol Calculated 87 mg/dL (<100); Potassium 3.9 mmol/L (3.3-5.1); Sodium 141 mmol/L (135-145); Total Protein 7.7 g/dL (6.5-8.0); Triglycerides 134 mg/dL (<150)
[2024-06-16 12:46] LABS: Vitamin D 25-OH Total 15.2 ng/mL (>30)
== END 2024-06-16 10:30 | disposition home or self-care (01) ==
LOC: HO.LAB 10:29
PROVIDERS: PCP Internal Medicine; Visit Provider Internal Medicine
DX: Z00.00 Encounter for general adult medical examination without abnormal findings (principal); R63.4 Abnormal weight loss; E55.9 Vitamin D deficiency, unspecified
CPT/HCPCS: 36415; 80053; 80061; 82306; 85025

== ENCOUNTER 2024-06-21 09:56 | Outpatient (AMB) | payer OTHER, SELFPAY ==
--- NOTE | 2024-06-21 09:57 | MHC.OFFVIS ---
Vital Signs 06/21/24 10:01 Height 5 ft 6 in Weight 266 lb 8.622 oz BMI 43.0 BP 116/72 Blood Pressure Location Rt brachial Position Sitting Pulse 85 Pulse Source Pulse Oximeter Pulse Oximetry (%) 98 Oxygen Delivery Method Room Air Intake Visit Reasons: Morbid (severe) obesity due to excess calories Intake Note: New patient internally referred by PCP for Morbid Obesity. Mixing Technician Required: Yes Mixing Technician Language: Tunnel Mucker Services: Mixing Technician Present Mixing Technician Name: Trisha Information Interpreted: non-clinical & clinical Accompanied by: Self / Same As Patient Allergies Iodinated Contrast Media [IV CONTRAST] Allergy (Severe, Verified 06/21/24 10:02) ANAPHYLAXIS cyclobenzaprine [From FLEXERIL] Allergy (Intermediate, Verified 06/21/24 10:02) NUMBNESS gadobutrol [From GADAVIST] Allergy (Intermediate, Verified 06/21/24 10:02) DIFFICULTY BREATHING perfume [PERFUME] Allergy (Intermediate, Verified 06/21/24 10:02) TRIGGERS ASTHMA prednisone Allergy (Intermediate, Verified 06/21/24 10:02) swelling Medication List - Last Reconciled 06/21/24 by Juarez Saavedra MD albuterol sulfate 2.5 mg (3 mL) inhalation Q4H PRN 30 days albuterol sulfate 90 mcg/actuation 2 inhalations inhalation Q6H PRN 30 days azelastine 2 sprays intranasal BID 30 days cholecalciferol (vitamin D3) 50 mcg PO DAILY 90 days clonazepam 1 mg PO BID PRN commode As directed duloxetine (Cymbalta) 20 mg PO BID esomeprazole magnesium (Nexium) 20 mg PO DAILY fluticasone propionate 50 mcg/actuation (Flonase Allergy Relief) 1 spray intranasal DAILY 30 days uxxmdambwof-ewilltdpu-llzvqich 200-62.5-25 mcg (Trelegy Ellipta) 1 inh inhalation DAILY 30 days hydrochlorothiazide 25 mg PO QAM hydroxyzine HCl 50 mg PO BID montelukast 10 mg PO DAILY nebulizers (AeroEclipse II Nebulizer) As directed ondansetron 8 mg PO Q8H oxymetazoline 0.05% (Afrin (oxymetazoline)) 2 sprays intranasal Q12H PRN 5 days pregabalin 150 mg PO BID 30 days roflumilast 500 mcg PO DAILY Shower Chair As directed Symbicort 160-4.5 mcg/actuation (budesonide-formoterol) 2 puffs inhalation BID 30 days NS tiotropium bromide 2.5 mcg/actuation (Spiriva Respimat) 2 puffs PO DAILY tirzepatide (weight loss) (Zepbound) 2.5 mg (0.5 mL) subcut QWEEK tramadol 50 mg PO Q6H PRN 30 days walker As directed zolpidem 10 mg PO BEDTIME PRN HPI Comments Details: The patient is a 44-year-old female presenting with obesity management and weight gain concerns. She states experiencing a gradual increase in weight over the last decade, significantly exacerbated within the last year. The patient correlates weight gain with stress and familial circumstances, alongside ineffective weight-loss attempts through dietary changes under professional guidance. Her obesity complicates her asthma and is a barrier to forthcoming tendon surgery. Additionally, she manages sleep apnea with CPAP therapy and emotional hypertension with occasional medication. - Patient has experienced weight loss attempts primarily through dietary changes, not pharmacologic weight loss medications. - She has used antihypertensive medications for emotional hypertension management. - Vitamin shots were mentioned but not specified. - Endocrine: Denies history of thyroid problems. No symptoms of Kinjal syndrome - Respiratory: Reports sleep apnea, uses CPAP therapy at night. - Skin: Denies unusual stretch whiteside, facial hair growth. - General: Reports stress-related challenges with weight loss. - Musculoskeletal: Reports recent falls due to weight, upcoming tendon surgery deferred due to obesity. - Cardiovascular: Reports managing episodic emotional hypertension. - Weight: Reports gradual weight gain over 10 years, significant increase in the past year. [facility] Medical History Skin lesion Hypertension Left foot pain Chronic cough Right elbow pain Morbid obesity Generalized anxiety disorder Asthma Hypovitaminosis D Mild recurrent major depression Pleuritic chest pain COVID-19 Breast pain, left Sinusitis Low back pain Polyarthralgia Ophthalmoplegic migraine Menieres disease Frequent falls RBBB (right bundle branch block) Leg edema Breast mass, right Left elbow pain Fibromyalgia Ankle pain, right Labial lesion Rectal bleeding H. pylori duodenitis Submandibular lymphadenopathy Chronic neck pain AIRAM (obstructive sleep apnea) Panic attacks Surgical History History of endoscopy History of colonoscopy History of cholecystectomy History of hysterectomy History of tubal ligation History of section History of carpal tunnel surgery of right wrist Family History Father Oral cancer Thyroid cancer Colon cancer Mother JOEL (non-insulin dependent diabetes mellitus in young) Gastric ulcer Paternal Grandfather Colon cancer Paternal Uncle Colon cancer Other Family history of colon cancer in father Social History Housing: House Are you a primary hospice patient care secretary to a significant other at home: No Alcohol intake: never Patient Tobacco Use Status: Never used Tobacco e-Cigarette/Vaping Use: Never Used Second Hand Smoke Exposure: No service: No Current occupational status: unemployed Sexual orientation: Straight/Heterosexual Gender identity: Female Cognitive needs: No Hearing needs: No Vision needs: Yes Physical Exam Vital Signs: BMI result Body Mass Index 43.0 Const Other: There were no cushingoid features. Thyroid gland is normal size weighs about 15 g. Assessment & Plan Assessment & Plan (1) Morbid obesity: Code(s): E66.01 - Morbid (severe) obesity due to excess calories Category: Medical Plan: This is a 44-year-old female with a history of morbid obesity. She appears to be clinically and biochemically euthyroid. 1. Obesity: The patient presents with a history of significant weight gain, particularly in the last year. Discussed pharmacological weight loss options, specifically the use of Zepbound, a GLP-1 receptor agonist, and arranged for insurance negotiation for coverage. Emphasized the importance of working with a supervisor livestock yard for dietary management. I discussed the complexities of weight gain with the patient, emphasizing the physiological challenges inherent in weight management due to metabolic adaptations and hormonal influences. We explored treatment strategies, including both lifestyle modifications and pharmacological interventions such as the GLP-1 receptor agonist, Zepbound, although insurance coverage remains a barrier. I outlined the process of reapplying for coverage and explored the impact of obesity on comorbidities like sleep apnea and asthma, advising on continued CPAP use and current asthma therapy. We agreed on an integrated approach, involving dietary management and physical activity. Support from our clinic team, including a referral to a supervisor livestock yard, was extended to facilitate balancing lifestyle changes with medical management. I went over the side effects of Zepbound including but not limited to nausea, vomiting rare risk of pancreatitis I will have her follow up with Genie Villa NP in 1 month The patient had an opportunity to ask questions regarding treatment plan. The patient expressed understanding and agreement with the above treatment plan. Patient was informed and verbally consented to the use of an ambient scribe for clinic note documentation during this visit. Orders: Referrals Nutrition/Dietitian Referral E66.01 - Morbid (severe) obesity due to excess calories Medications: New tirzepatide (weight loss) (Zepbound) for 4 weeks 2.5 mg (0.5 mL) subcut QWEEK 2 mL 5RF Discontinued tirzepatide (weight loss) (Zepbound) Discontinued Reason: Doctor's Order 2.5 mg (0.5 mL) subcut QWEEK 2 mL 2RF Coding Level of Care Code New Pt Level 4 (37357) Diagnoses Morbid obesity E66.01
[2024-06-21 10:01] VITALS: BP 116/72; PULSE 85; O2SAT 98; BMI 43.0
--- OUTSIDE RECORDS SUMMARY | 2024-06-21 11:20 | XMS_ITS | Clinical Summary ---
Author Organization [facility] Address [address] [place] [address] Care Team Providers Care Electrolytic Etcher Name Role Phone Trisha Aaron MD Primary [...] at bedtime as needed. 0 Active Tiotropium [place]ide Monohydrate (SPIRIVA RESPIMAT) 2.5 MCG/ACT Aero Soln [...] 11/02/2018 SOCIAL NEEDS SCREENING 04/05/2024 Care Teams Electrolytic Etcher Relationship Specialty Start Date End Date Trisha Aaron MD PCP - General Internal Medicine 12/31/17
--- OUTSIDE RECORDS SUMMARY | 2024-06-21 11:20 | XMS_ITS | Encounter Summary ---
Author Organization [facility] Address [address] [place] [address] Care Team Providers Care Nursing Home Director Name Role Phone Trisha Aaron MD Primary Care Provider Mona bui Reason for Visit * Reason Comments E-prescribe Rx Request Encounter Details Date Type Department Care Team Description 10/20/2023 Refill [facility] Medical [facility] [address] [place] [phone] Kenneth Bucio DPM E-prescribe Rx Request [...] on filedocumented in this encounter Care Teams Nursing Home Director Relationship Specialty Start Date End Date Trisha Aaron MD PCP - General Internal Medicine 12/31/17 documented as of this encounter
--- OUTSIDE RECORDS SUMMARY | 2024-06-21 11:20 | XMS_ITS | Encounter Summary ---
Author Organization [facility] Address [address] [place] [address] Care Team Providers Care Risk Management Consultant Name Role Phone Trisha Aaron MD Primary Care Provider Mona bui Reason for Visit * Reason Comments E-prescribe Rx Request Encounter Details Date Type Department Care Team Description 11/10/2022 Refill [facility] Medical [facility] [address] [place] [phone] Kenneth Bucio DPM E-prescribe Rx Request Social [...] on filedocumented in this encounter Care Teams Risk Management Consultant Relationship Specialty Start Date End Date Trisha Aaron MD PCP - General Internal Medicine 12/31/17 documented as of this encounter
--- OUTSIDE RECORDS SUMMARY | 2024-06-21 11:20 | XMS_ITS | Encounter Summary ---
Author Organization [facility] Address [address] [place] [address] Care Team Providers Care Therapeutic Recreation Specialist Name Role Phone Trisha Aaron MD Primary Care Provider Mona bui Encounter Details Date Type Department Care Team Description 11/03/2018 Orders Only Medical Records [address] [place] [address] Bryan Sheehan MD Social History Tobacco Use [...] on filedocumented in this encounter Care Teams Therapeutic Recreation Specialist Relationship Specialty Start Date End Date Trisha Aaron MD PCP - General Internal Medicine 12/31/17 documented as of this encounter
--- OUTSIDE RECORDS SUMMARY | 2024-06-21 11:20 | XMS_ITS | Clinical Summary ---
Author Organization [address] [place] [address] Address [address] [place] [phone] Phone Care Team Providers Care Member Of The Legislative [employer] Name Role Phone Trisha Aaron MD Primary Care Provider [phone] Allergies Active Allergy Reactions Criticality Noted Date [...] Date Site/Laterality Comments OTHER SURGICAL HISTORY PROCEDURE: [place] ARTHRS WRST EXC&/RPR TRIANG FIBROCART&/JOINT SECTION PROCEDURE: [...] PM EDT Office Visit Orthopedic Surgery - [place] [address] [facility] [address] [place] [phone] Kenneth Bucio, DPM 175 [facility] [address] [place] [address] Health Maintenance Due Date Last Done Comments [...] patient's age to complete this topic [place] [address] [place] [address] PLAN Care Teams Member Of The Legislative Assembly Relationship Specialty Start Date End Date Trisha Aaron MD 2 [facility] , [address] Physician Associ D/B/A: [facility] Carlin PCP - General Internal Medicine 12/31/17
--- OUTSIDE RECORDS SUMMARY | 2024-06-21 11:20 | XMS_ITS | Encounter Summary ---
Author Organization [facility] Address [address] [place] [address] Care Team Providers Care Patient Resource Coordinator Name Role Phone Trisha Aaron MD Primary Care Provider Mona bui Reason for Visit * Reason Comments E-prescribe Rx Request Encounter Details Date Type Department Care Team Description 02/22/2023 Refill [facility] [address] [place] [phone] Kenneth Bucio DPM E-prescribe Rx Request [...] filedocumented in this encounter Care Teams Patient Resource Coordinator Relationship Specialty Start Date End Date Trisha Aaron MD PCP - General Internal Medicine 12/31/17 documented as of this encounter
--- OUTSIDE RECORDS SUMMARY | 2024-06-21 11:20 | XMS_ITS | Encounter Summary ---
Author Organization [facility] Address [address] [place] [address] Care Team Providers Care Packing Checker Name Role Phone Trisha Aaron MD Primary Care Provider Mona bui Reason for Visit * Reason Comments E-prescribe Rx Request Encounter Details Date Type Department Care Team Description 01/21/2023 Refill [facility] Medical [facility] [address] [place] [phone] Kenneth Bucio DPM E-prescribe Rx Request Social [...] on filedocumented in this encounter Care Teams Packing Checker Relationship Specialty Start Date End Date Trisha Aaron MD PCP - General Internal Medicine 12/31/17 documented as of this encounter
--- OUTSIDE RECORDS SUMMARY | 2024-06-21 11:20 | XMS_ITS | Encounter Summary ---
Author Organization [facility] Address [facility] [place] [address] Care Team Providers Care Tele Grout Sewer Line Repairer Name Role Phone Trisha Aaron MD Primary Care Provider Mona bui Encounter Details Date Type Department Care Team Description 06/11/2020 Orders Only Medical Records [address] [place] [address] Ya Ramírez DO Social History Tobacco Use [...] on filedocumented in this encounter Care Teams Tele Grout Sewer Line Repairer Relationship Specialty Start Date End Date Trisha Aaron MD PCP - General Internal Medicine 12/31/17 documented as of this encounter
--- OUTSIDE RECORDS SUMMARY | 2024-06-21 11:20 | XMS_ITS | Encounter Summary ---
Author Organization [facility] Address [address] [place] [address] Care Team Providers Care Tune Up Mechanic Name Role Phone Trisha Aaron MD Primary Care Provider Mona bui Encounter Details Date Type Department Care Team Description 02/09/2018 Release of Information Medical Records [address] [place] [id number] Abstract, Provider Social History Tobacco Use Types Packs/Day Years Used Date Smoking Tobacco: Never Smokeless Tobacco: Never Sex Assigned at Date Recorded Not on file documented as of this encounter Plan of Treatment Not on file documented as of this encounter Visit Diagnoses Not on filedocumented in this encounter Care Teams Tune Up Mechanic Relationship Specialty Start Date End Date Trisha Aaron MD PCP - General Internal Medicine 12/31/17 documented as of this encounter
--- OUTSIDE RECORDS SUMMARY | 2024-06-21 11:20 | XMS_ITS | Encounter Summary ---
Author Organization [employer] [facility] Address [address] [place] [address] Care Team Providers Care Physicist Solid State Name Role Phone Trisha Aaron MD Primary Care Provider Mona bui Reason for Visit * Reason Comments E-prescribe Rx Request Encounter Details Date Type Department Care Team Description 01/02/2019 Refill OBGYN - [address] [facility] [address] [place] [phone] Monica Emanuel CNM [address] [place] [phone] E-prescribe Rx Request Social History Tobacco Use Types Packs/Day Years Used Date Smoking Tobacco: Never Smokeless Tobacco: Never Sex Assigned at Date Recorded Not on file documented as of this encounter Plan of Treatment Not on file documented as of this encounter Visit Diagnoses Not on filedocumented in this encounter Care Teams Physicist Solid State Relationship Specialty Start Date End Date Trisha Aaron MD PCP - General Internal Medicine 12/31/17 documented as of this encounter
--- OUTSIDE RECORDS SUMMARY | 2024-06-21 11:20 | XMS_ITS | Encounter Summary ---
Author Organization [facility] Address [address] [place] [address] Care Team Providers Care Continuous Improvement Engineer Name Role Phone Trisha Aaron MD Primary Care Provider Mona bui Encounter Details Date Type Department Care Team Description 07/23/2020 [facility] Medical Records [address] [place] [address] Abstract, Provider Social History Tobacco Use Types [...] on filedocumented in this encounter Care Teams Continuous Improvement Engineer Relationship Specialty Start Date End Date Trisha Aaron MD PCP - General Internal Medicine 12/31/17 documented as of this encounter
--- OUTSIDE RECORDS SUMMARY | 2024-06-21 11:20 | XMS_ITS | Encounter Summary ---
Author Organization [facility] Address [address] [place] [address] Care Team Providers Care Vamp Liner Name Role Phone Trisha Aarno MD Primary Care Provider Mona bui Reason for Visit * Reason Comments E-prescribe Rx Request Encounter Details Date Type Department Care Team Description 06/30/2023 [facility] [address] [place] [address] [facility] [address] [place] [address] E-prescribe Rx Request Social History Tobacco Use [...] EDT WHEN WAS THE PATIENTS LAST ANNUAL BATCH UNLOADER EXAM? ? Does patient have an upcoming [...] the end of the day? YES Payor: [facility] [employer] [facility] FFS / Plan: [facility] / Product Type: MEDICAID RISK documented in this encounter Plan of Treatment Not on file documented as of this encounter Visit Diagnoses Not on filedocumented in this encounter Care Teams Vamp Liner Relationship Specialty Start Date End Date Trisha Aaron MD PCP - General Internal Medicine 12/31/17 documented as of this encounter
--- OUTSIDE RECORDS SUMMARY | 2024-06-21 11:21 | XMS_ITS | Encounter Summary ---
Author Organization [facility] [employer] [facility] Address [facility] [place] [address] Care Team Providers Care Booth Manager Name Role Phone Trisha Aaron MD Primary Care Provider Mona bui Encounter Details Date Type Department Care Team Description 04/28/2019 Hospital Medical Records [address] [place] [address] Ya Ramírez, Social History Tobacco Use Types [...] on filedocumented in this encounter Care Teams Booth Manager Relationship Specialty Start Date End Date Trisha Aaron MD PCP - General Internal Medicine 12/31/17 documented as of this encounter
--- OUTSIDE RECORDS SUMMARY | 2024-06-21 11:21 | XMS_ITS | Encounter Summary ---
Author Organization [facility] Address [address] [place] [address] Care Team Providers Care Enforcement Officer Name Role Phone Trisha Aaron MD Primary Care Provider Mona bui Reason for Visit * Reason Onset Date Comments Information Needed 05/16/2019 Encounter Details Date Type Department Care Team Description 05/16/2019 Telephone [employer] [phone] Trisha Aaron MD Information Needed Social History [...] on filedocumented in this encounter Care Teams Enforcement Officer Relationship Specialty Start Date End Date Trisha Aaron MD PCP - General Internal Medicine 12/31/17 documented as of this encounter
--- OUTSIDE RECORDS SUMMARY | 2024-06-21 11:21 | XMS_ITS | Encounter Summary ---
Author Organization [facility] Address [address] [place] [address] Care Team Providers Care Strategic Sourcing Consultant Name Role Phone Trisha Aaron MD Primary Care Provider Mona bui Encounter Details Date Type Department Care Team Description 04/11/2019 Release of Information Medical Records [address] [place] [id number] Abstract, Provider Social History Tobacco Use Types [...] on filedocumented in this encounter Care Teams Strategic Sourcing Consultant Relationship Specialty Start Date End Date Trisha Aaron MD PCP - General Internal Medicine 12/31/17 documented as of this encounter
== END 2024-06-21 10:32 | disposition home or self-care (01) ==
LOC: HO.ENCR 09:56
PROVIDERS: PCP Internal Medicine; Visit Provider Internal Medicine Endocrinology, Diabetes & Metabolism
DX: E66.01 Morbid (severe) obesity due to excess calories (principal)
CPT/HCPCS: 99204

== ENCOUNTER → 2024-06-21 09:56 | Outpatient (BNVA) | payer OTHER, SELFPAY | PROVIDERS: PCP Internal Medicine; Visit Provider Internal Medicine Endocrinology, Diabetes & Metabolism | DX: E66.01 Morbid (severe) obesity due to excess calories (principal); Z68.41 Body mass index [BMI] 40.0-44.9, adult | CPT/HCPCS: 99202 ==

== ENCOUNTER 2024-07-03 07:34 | Outpatient (REF) | payer OTHER, SELFPAY | END 2024-07-03 07:35 | disposition home or self-care (01) | LOC: HO.HOSX 07:34 | PROVIDERS: Visit Provider Orthopaedic Surgery | DX: Z13.89 Encounter for screening for other disorder (principal) ==

== ENCOUNTER 2024-07-05 07:34 | Outpatient (REF) | payer OTHER, SELFPAY ==
--- OUTSIDE RECORDS SUMMARY | 2024-07-05 16:08 | XMS_ITS | Encounter Summary ---
Author Organization [facility] Address [address] [place] [address] Care Team Providers Care Office Clerk Assistant Name Role Phone Trisha Aaron MD Primary Care Provider Mona bui Reason for Visit * Reason Onset Date Comments radiology 07/03/2022 MRI appt Encounter Details Date Type Department Care Team Description 07/03/2022 Telephone Radiology - [address] [address] Kenneth Bucio DPM radiology (MRI appt) Social [...] on filedocumented in this encounter Care Teams Office Clerk Assistant Relationship Specialty Start Date End Date Trisha Aaron MD PCP - General Internal Medicine 12/31/17 documented as of this encounter
--- OUTSIDE RECORDS SUMMARY | 2024-07-05 16:08 | XMS_ITS | Encounter Summary ---
Author Organization [facility] Address [address] [place] [address] Care Team Providers Care Soldering Machine Setter Name Role Phone Trisha Aaron MD Primary Care Provider Mnoa bui Reason for Visit * Reason Comments E-prescribe Rx Request Encounter Details Date Type Department Care Team Description 02/22/2023 [facility]ill [facility] [address] [place] [phone] Kenneth Bucio DPM E-prescribe Rx Request [...] on filedocumented in this encounter Care Teams Soldering Machine Setter Relationship Specialty Start Date End Date Trisha Aaron MD PCP - General Internal Medicine 12/31/17 documented as of this encounter
--- OUTSIDE RECORDS SUMMARY | 2024-07-05 16:08 | XMS_ITS | Encounter Summary ---
Author Organization [facility] Address [address] [place] [address] Care Team Providers Care Executive Chairman Name Role Phone Trisha Aaron MD Primary Care Provider Mona bui Encounter Details Date Type Department Care Team Description 07/23/2020 [facility] Medical Records [address] [place] [address] Abstract, Provider Social History Tobacco Use Types [...] on filedocumented in this encounter Care Teams Executive Chairman Relationship Specialty Start Date End Date Trisha Aaron MD PCP - General Internal Medicine 12/31/17 documented as of this encounter
--- OUTSIDE RECORDS SUMMARY | 2024-07-05 16:09 | XMS_ITS | Encounter Summary ---
Author Organization [facility] Address [address] [place] [address] Care Team Providers Care Filling Room Operator Name Role Phone Trisha Aaron MD Primary Care Provider Mona bui Reason for Visit * Reason Comments E-prescribe Rx Request Encounter Details Date Type Department Care Team Description 06/30/2023 [facility] [address] [place] [address] [facility] [address] [place] [address] E-prescribe Rx Request Social History Tobacco Use [...] EDT WHEN WAS THE PATIENTS LAST ANNUAL SUPERVISOR MOLD SHOP EXAM? ? Does patient have an upcoming [...] the end of the day? YES Payor: [facility] [employer] [facility] [employer] / Plan: [facility] / Product Type: MEDICAID RISK documented in this encounter Plan of Treatment Not on file documented as of this encounter Visit Diagnoses Not on filedocumented in this encounter Care Teams Filling Room Operator Relationship Specialty Start Date End Date Trisha Aaron MD PCP - General Internal Medicine 12/31/17 documented as of this encounter
--- OUTSIDE RECORDS SUMMARY | 2024-07-05 16:09 | XMS_ITS | Encounter Summary ---
Author Organization [facility] Address [address] [place] [address] Care Team Providers Care County Bailiff Name Role Phone Trisha Aaron MD Primary Care Provider Mona bui Reason for Visit * Reason Onset Date Comments Information Needed 05/16/2019 Encounter Details Date Type Department Care Team Description 05/16/[address] [phone] Trisha Aaron MD Information Needed Social History [...] on filedocumented in this encounter Care Teams County Bailiff Relationship Specialty Start Date End Date Trisha Aaron MD PCP - General Internal Medicine 12/31/17 documented as of this encounter
--- OUTSIDE RECORDS SUMMARY | 2024-07-05 16:09 | XMS_ITS | Clinical Summary ---
Author Organization [address] [place] [address] Address [address] [place] [address] Phone Care Team Providers Care Field Artillery Crewmember Name Role Phone Trisha Aaron MD Primary Care Provider [phone] Allergies Active Allergy Reactions Criticality Noted Date [...] Date Site/Laterality Comments OTHER SURGICAL HISTORY PROCEDURE: [place] ARTHRS WRST EXC&/RPR TRIANG FIBROCART&/JOINT SECTION PROCEDURE: [...] PM EDT Office Visit Orthopedic Surgery - [place] [address] [facility] [address] [place] [phone] Kenneth Bucio, DPM [address] [facility] [address] [place] [address] Health Maintenance Due Date Last Done Comments [...] patient's age to complete this topic [place] [address] [place] [address] PLAN Care Teams Field Artillery Crewmember Relationship Specialty Start Date End Date Trisha Aaron MD 2 [facility] , [address] Physician Associ D/B/A: [facility] Carlin PCP - General Internal Medicine 12/31/17
--- OUTSIDE RECORDS SUMMARY | 2024-07-05 16:09 | XMS_ITS | Encounter Summary ---
Author Organization [facility] Address [address] [place] [address] Care Team Providers Care Risk Management Professional Name Role Phone Trisha Aaron MD Primary Care Provider Mona bui Reason for Visit * Reason Comments E-prescribe Rx Request Encounter Details Date Type Department Care Team Description 01/02/2019 Refill OBGYN - [address] [facility] [address] [place] [address] Monica Emanuel CNM [address] [place] [address] E-prescribe Rx Request Social History Tobacco Use Types Packs/Day Years Used Date Smoking Tobacco: Never Smokeless Tobacco: Never Sex Assigned at Date Recorded Not on file documented as of this encounter Plan of Treatment Not on file documented as of this encounter Visit Diagnoses Not on filedocumented in this encounter Care Teams Risk Management Professional Relationship Specialty Start Date End Date Trisha Aaron MD PCP - General Internal Medicine 12/31/17 documented as of this encounter
--- OUTSIDE RECORDS SUMMARY | 2024-07-05 16:09 | XMS_ITS | Encounter Summary ---
Author Organization [facility] Address [facility] [place] [address] Care Team Providers Care Precision Farming Specialist Name Role Phone Trisha Aaron MD Primary Care Provider Mona bui Encounter Details Date Type Department Care Team Description 10/25/2018 Release of Information Medical Records [address] [place] [id number] Abstract, Provider Social History Tobacco Use Types Packs/Day Years Used Date Smoking Tobacco: Never Smokeless Tobacco: Never Sex Assigned at Date Recorded Not on file documented as of this encounter Plan of Treatment Not on file documented as of this encounter Visit Diagnoses Not on filedocumented in this encounter Care Teams Precision Farming Specialist Relationship Specialty Start Date End Date Trisha Aaron MD PCP - General Internal Medicine 12/31/17 documented as of this encounter
--- OUTSIDE RECORDS SUMMARY | 2024-07-05 16:09 | XMS_ITS | Encounter Summary ---
Author Organization [facility] Address [address] [place] [address] Care Team Providers Care Jd Edwards Developer Name Role Phone Trisha Aaron MD Primary Care Provider Mona bui Reason for Visit * Reason Comments E-prescribe Rx Request Encounter Details Date Type Department Care Team Description 11/10/2022 Refill [facility] [address] [place] [phone] Kenneth Bucio DPM E-prescribe Rx Request Social [...] on filedocumented in this encounter Care Teams Jd Edwards Developer Relationship Specialty Start Date End Date Trisha Aaron MD PCP - General Internal Medicine 12/31/17 documented as of this encounter
--- OUTSIDE RECORDS SUMMARY | 2024-07-05 16:09 | XMS_ITS | Encounter Summary ---
Author Organization [facility] Address [address] [place] [address] Care Team Providers Care Blade Grader Operator Name Role Phone Trisha Aaron MD Primary Care Provider Mona bui Encounter Details Date Type Department Care Team Description 02/10/2019 Orders Only OBGYN - [address] [address] Ya Ramírez DO Menorrhagia with regular cycle [...] menstruation documented in this encounter Care Teams Blade Grader Operator Relationship Specialty Start Date End Date Trisha Aaron MD PCP - General Internal Medicine 12/31/17 documented as of this encounter
--- OUTSIDE RECORDS SUMMARY | 2024-07-05 16:09 | XMS_ITS | Encounter Summary ---
Author Organization [facility] Address [facility] [place] [address] Care Team Providers Care Insurance Account Executive Name Role Phone Trisha Aaron MD Primary Care Provider Mona bui Encounter Details Date Type Department Care Team Description 06/11/2020 Orders Only Medical Records [address] [place] [address] Ya Ramírez DO Social History Tobacco Use [...] on filedocumented in this encounter Care Teams Insurance Account Executive Relationship Specialty Start Date End Date Trisha Aaron MD PCP - General Internal Medicine 12/31/17 documented as of this encounter
--- OUTSIDE RECORDS SUMMARY | 2024-07-05 16:09 | XMS_ITS | Encounter Summary ---
Author Organization [facility] Address [facility] [place] [address] Care Team Providers Care Route Supervisor Name Role Phone Trisha Aaron MD Primary Care Provider Mona bui Encounter Details Date Type Department Care Team Description 04/11/2019 Release of Information Medical Records [address] [place] [id number] Abstract, Provider Social History Tobacco Use Types [...] on filedocumented in this encounter Care Teams Route Supervisor Relationship Specialty Start Date End Date Trisha Aaron MD PCP - General Internal Medicine 12/31/17 documented as of this encounter
--- OUTSIDE RECORDS SUMMARY | 2024-07-05 16:09 | XMS_ITS | Encounter Summary ---
Author Organization [facility] [employer] [facility] Address [address] [place] [address] Care Team Providers Care Nursing Program Director Name Role Phone Trisha Aaron MD Primary Care Provider Mona bui Reason for Visit * Reason Onset Date Comments Error 05/08/2020 Encounter Details Date Type Department Care Team Description 05/08/[address] [address] Trisha Aaron MD Error Social History Tobacco [...] filedocumented in this encounter Care Teams Nursing Program Director Relationship Specialty Start Date End Date Trisha Aaron MD PCP - General Internal Medicine 12/31/17 documented as of this encounter
--- OUTSIDE RECORDS SUMMARY | 2024-07-05 16:09 | XMS_ITS | Encounter Summary ---
Author Organization [facility] Address [address] [place] [address] Care Team Providers Care Secondary School Teacher Librarian Name Role Phone Trisha Aaron MD Primary Care Provider Mona bui Reason for Visit * Reason Onset Date Comments External Sleep Study Request 10/18/2018 Jasiel e sleep study Encounter Details Date Type Department Care Team Description 10/18/2018 Telephone Pulmonology - [address] [place] [phone] Bryan Sheehan MD External Sleep Study Request [...] on filedocumented in this encounter Care Teams Secondary School Teacher Librarian Relationship Specialty Start Date End Date Trisha Aaron MD PCP - General Internal Medicine 12/31/17 documented as of this encounter
--- OUTSIDE RECORDS SUMMARY | 2024-07-05 16:09 | XMS_ITS | Encounter Summary ---
Author Organization [facility] Address [address] [place] [address] Care Team Providers Care Sheet Metal Lay Out Worker Name Role Phone Trisha Aaron MD Primary Care Provider Mona bui Reason for Visit * Reason Onset Date Comments Provider Call Back 10/27/2018 Encounter Details Date Type Department Care Team Description 10/27/2018 Telephone Pulmonology - [place] 175 [facility] [address] [place] [address] Bryan Sheehan MD Provider Call [...] on filedocumented in this encounter Care Teams Sheet Metal Lay Out Worker Relationship Specialty Start Date End Date Trisha Aaron MD PCP - General Internal Medicine 12/31/17 documented as of this encounter
== END 2024-07-05 07:35 | disposition home or self-care (01) ==
LOC: HO.HOSX 07:34
PROVIDERS: Visit Provider Orthopaedic Surgery
DX: M25.561 Pain in right knee (principal); M25.461 Effusion, right knee
CPT/HCPCS: 20610; 99212; J1010; J2003

== ENCOUNTER 2024-07-05 14:24 | Outpatient (AMB) | payer OTHER, SELFPAY ==
--- NOTE | 2024-07-05 14:30 | A.OFFVIS_ITS ---
Intake Visit Reasons: New prob RT knee pain and swelling Intake Note: Mona is a 44 year old female who presents with complaints of right knee pain and swelling. The patient did have a cortisone injection given into her left knee last year. She got fairly good relief from that injection. She describes her right knee pain as sharp in nature. She has done physical therapy exercises which aggravated her pain. She has also tried Tylenol and anti-inflammatory medicines which gave her minimal relief. Director Of Government Sales Services: Director Of Government Sales Present (Kate ([phone])) Allergies Iodinated Contrast Media [IV CONTRAST] Allergy (Severe, Verified 06/21/24 10:02) ANAPHYLAXIS cyclobenzaprine [From FLEXERIL] Allergy (Intermediate, Verified 06/21/24 10:02) NUMBNESS gadobutrol [From GADAVIST] Allergy (Intermediate, Verified 06/21/24 10:02) DIFFICULTY BREATHING perfume [PERFUME] Allergy (Intermediate, Verified 06/21/24 10:02) TRIGGERS ASTHMA prednisone Allergy (Intermediate, Verified 06/21/24 10:02) swelling Medication List - Last Reconciled 07/05/24 by Rosendo Scanlon MD albuterol sulfate 2.5 mg (3 mL) inhalation Q4H PRN 30 days albuterol sulfate 90 mcg/actuation 2 inhalations inhalation Q6H PRN 30 days azelastine 2 sprays intranasal BID 30 days cholecalciferol (vitamin D3) 50 mcg PO DAILY 90 days clonazepam 1 mg PO BID PRN commode As directed duloxetine (Cymbalta) 20 mg PO BID esomeprazole magnesium (Nexium) 20 mg PO DAILY fluticasone propionate 50 mcg/actuation (Flonase Allergy Relief) 1 spray intranasal DAILY 30 days elkjcjzfgmy-ljkrxrcys-cjtklpxx 200-62.5-25 mcg (Trelegy Ellipta) 1 inh inhalation DAILY 30 days hydrochlorothiazide 25 mg PO QAM hydroxyzine HCl 50 mg PO BID montelukast 10 mg PO DAILY nebulizers (AeroEclipse II Nebulizer) As directed ondansetron 8 mg PO Q8H oxymetazoline 0.05% (Afrin (oxymetazoline)) 2 sprays intranasal Q12H PRN 5 days pregabalin 150 mg PO BID 30 days roflumilast 500 mcg PO DAILY Shower Chair As directed Symbicort 160-4.5 mcg/actuation (budesonide-formoterol) 2 puffs inhalation BID 30 days NS tiotropium bromide 2.5 mcg/actuation (Spiriva Respimat) 2 puffs PO DAILY tirzepatide (weight loss) (Zepbound) 2.5 mg (0.5 mL) subcut QWEEK tramadol 50 mg PO Q6H PRN 30 days walker As directed zolpidem 10 mg PO BEDTIME PRN PFSH Medical History Skin lesion Hypertension Left foot pain Chronic cough Right elbow pain Morbid obesity Generalized anxiety disorder Asthma Hypovitaminosis D Mild recurrent major depression Pleuritic chest pain COVID-19 Breast pain, left Sinusitis Low back pain Polyarthralgia Ophthalmoplegic migraine Menieres disease Frequent falls RBBB (right bundle branch block) Leg edema Breast mass, right Left elbow pain Fibromyalgia Ankle pain, right Labial lesion Rectal bleeding H. pylori duodenitis Submandibular lymphadenopathy Chronic neck pain AIRAM (obstructive sleep apnea) Panic attacks Surgical History History of endoscopy History of colonoscopy History of cholecystectomy History of hysterectomy History of tubal ligation History of section History of carpal tunnel surgery of right wrist Family History Father Oral cancer Thyroid cancer Colon cancer Mother NIDDY (non-insulin dependent diabetes mellitus in young) Gastric ulcer Paternal Grandfather Colon cancer Paternal Uncle Colon cancer Other Family history of colon cancer in father Social History Housing: House Are you a primary floor care technician to a significant other at home: No Alcohol intake: never Patient Tobacco Use Status: Never used Tobacco e-Cigarette/Vaping Use: Never Used Second Hand Smoke Exposure: No service: No Current occupational status: unemployed Sexual orientation: Straight/Heterosexual Gender identity: Female Cognitive needs: No Hearing needs: No Vision needs: Yes Physical Exam Const Other: Well-nourished well-developed very friendly female awake alert and oriented x3 in no acute distress Extrem Other: Right knee examination shows a moderate effusion, mild crepitus with range of motion, no instability Office Procedures AMB Joint Injection/Aspiration Joint Injection/Aspiration Primary Site: right knee Prep: site was prepped using aseptic technique Injected: 40 mg of, DepoMedrol and 1% plain lidocaine Procedure: The patient tolerated the procedure well Coding - Large joint Procedure code (CPT) selection complete Assessment & Plan Assessment & Plan (1) Right knee pain: Code(s): M25.561 - Pain in right knee Category: Medical Plan Ms. Trip Garland presents with right knee pain due to early degenerative joint disease. The risks and benefits of a cortisone injection were discussed at length with the patient. Patient wished to proceed. She tolerated the injection well. Prior to the injection I aspirated 25 cc of clear fluid from her right knee. She will continue with her activity modifications. She will contact me prior to her follow-up appointment in 3 months should any questions or concerns arise. Feel free to call me at any time should questions regarding her orthopedic management arise. I spent 20 minutes in reviewing the patient's records and imaging studies, seeing the patient and documenting in the medical record. Orders: Orders AMB Joint Injection/Aspiration Today M25.561 - Pain in right knee Coding Level of Care Code New Pt Level 3 (49589) Complex EM visit Add On G2211 Diagnoses Right knee pain M25.561 CPT Codes Coding - 28423 Large joint: 35590 - Large joint ([id number])
--- OUTSIDE RECORDS SUMMARY | 2024-07-05 17:12 | XMS_ITS | Clinical Summary ---
Author Organization [address] [place] [address] Address [address] [place] [address] Phone Care Team Providers Care Pulverizer Operator Name Role Phone Trisha Aaron MD Primary Care Provider [phone] Allergies Active Allergy Reactions Criticality Noted Date [...] Date Site/Laterality Comments OTHER SURGICAL HISTORY PROCEDURE: [place] WRST EXC&/RPR TRIANG FIBROCART&/JOINT SECTION PROCEDURE: [...] PM EDT Office Visit Orthopedic Surgery - [place] 250 175 [facility] [address] [place] [phone] Kenneth Bucio, DPM 175 [facility] [address] [place] [address] Health Maintenance Due Date Last Done Comments [...] patient's age to complete this topic [place] [address] [place] [address] PLAN Care Teams Pulverizer Operator Relationship Specialty Start Date End Date Trisha Aaron MD 2 [facility] , [address] Physician Associ D/B/A: [facility] AUROR[facility] Carlin PCP - General Internal Medicine 12/31/17
--- OUTSIDE RECORDS SUMMARY | 2024-07-05 17:12 | XMS_ITS | Encounter Summary ---
Author Organization [facility] Address [facility] [place] [address] Care Team Providers Care Metal Weigher Name Role Phone Trisha Aaron MD Primary Care Provider Mona bui Encounter Details Date Type Department Care Team Description 06/11/2020 Orders Only Medical Records [address] [place] [address] Ya Ramírez DO Social History Tobacco Use [...] on filedocumented in this encounter Care Teams Metal Weigher Relationship Specialty Start Date End Date Trisha Aaron MD PCP - General Internal Medicine 12/31/17 documented as of this encounter
--- OUTSIDE RECORDS SUMMARY | 2024-07-05 17:12 | XMS_ITS | Encounter Summary ---
Author Organization [employer] [facility] Address [address] [place] [address] Care Team Providers Care Environmental Engineer Scientist Name Role Phone Trisha Aaron MD Primary Care Provider Mona bui Reason for Visit * Reason Onset Date Comments Provider Call Back 10/27/2018 Encounter Details Date Type Department Care Team Description 10/27/2018 Telephone Pulmonology - [place] 175 [facility] [address] [place] [address] Bryan Sheehan MD Provider Call [...] on filedocumented in this encounter Care Teams Environmental Engineer Scientist Relationship Specialty Start Date End Date Tirsha Aaron MD PCP - General Internal Medicine 12/31/17 documented as of this encounter
--- OUTSIDE RECORDS SUMMARY | 2024-07-05 17:12 | XMS_ITS | Encounter Summary ---
Author Organization [facility] Address [address] [place] [address] Care Team Providers Care Business Banking Officer Name Role Phone Trisha Aaron MD Primary Care Provider Mona bui Reason for Visit * Reason Comments E-prescribe Rx Request Encounter Details Date Type Department Care Team Description 04/27/2023 Refill [facility] Medical [facility] [address] [place] [phone] Kenneth Bucio DPM E-prescribe Rx Request [...] on filedocumented in this encounter Care Teams Business Banking Officer Relationship Specialty Start Date End Date Trisha Aaron MD PCP - General Internal Medicine 12/31/17 documented as of this encounter
--- OUTSIDE RECORDS SUMMARY | 2024-07-05 17:12 | XMS_ITS | Encounter Summary ---
Author Organization [employer] [facility] Address [address] [place] [address] Care Team Providers Care Yoga Teacher Name Role Phone Trisha Aaron MD Primary Care Provider Mona bui Encounter Details Date Type Department Care Team Description 11/03/2018 Orders Only Medical Records [address] [place] [address] Bryan Sheehan MD Social History Tobacco Use [...] on filedocumented in this encounter Care Teams Yoga Teacher Relationship Specialty Start Date End Date Trisha Aaron MD PCP - General Internal Medicine 12/31/17 documented as of this encounter
--- OUTSIDE RECORDS SUMMARY | 2024-07-05 17:12 | XMS_ITS | Encounter Summary ---
Author Organization [facility] Address [address] [place] [address] Care Team Providers Care Dramatic Art Teacher Name Role Phone Trisha Aaron MD Primary Care Provider Mona bui Reason for Visit * Reason Onset Date Comments Information Needed 05/16/2019 Encounter Details Date Type Department Care Team Description 05/16/[address] [phone] Trisha Aaron MD Information Needed Social History [...] on filedocumented in this encounter Care Teams Dramatic Art Teacher Relationship Specialty Start Date End Date Trisha Aaron MD PCP - General Internal Medicine 12/31/17 documented as of this encounter
--- OUTSIDE RECORDS SUMMARY | 2024-07-05 17:12 | XMS_ITS | Encounter Summary ---
Author Organization [facility] Address [address] [place] [address] Care Team Providers Care Etcher Apprentice Name Role Phone Trisha Aaron MD Primary Care Provider Mona bui Reason for Visit * Reason Comments E-prescribe Rx Request Encounter Details Date Type Department Care Team Description 01/02/2019 Refill OBGYN - 271 [facility] [address] [place] [address] Monica Emanuel CNM [address] [place] [address] E-prescribe Rx Request Social History Tobacco Use Types Packs/Day Years Used Date Smoking Tobacco: Never Smokeless Tobacco: Never Sex Assigned at Date Recorded Not on file documented as of this encounter Plan of Treatment Not on file documented as of this encounter Visit Diagnoses Not on filedocumented in this encounter Care Teams Etcher Apprentice Relationship Specialty Start Date End Date Trisha Aaron MD PCP - General Internal Medicine 12/31/17 documented as of this encounter
--- OUTSIDE RECORDS SUMMARY | 2024-07-05 17:12 | XMS_ITS | Encounter Summary ---
Author Organization [facility] Address [address] [place] [address] Care Team Providers Care Sign Language Translator Name Role Phone Trisha Aaron MD Primary Care Provider Mona bui Reason for Visit * Reason Comments E-prescribe Rx Request Encounter Details Date Type Department Care Team Description 11/10/2022 Refill [facility] Medical [facility] [address] [place] [phone] Kenneth Bucio DPM E-prescribe Rx Request Social [...] on filedocumented in this encounter Care Teams Sign Language Translator Relationship Specialty Start Date End Date Trisha Aaron MD PCP - General Internal Medicine 12/31/17 documented as of this encounter
--- OUTSIDE RECORDS SUMMARY | 2024-07-05 17:12 | XMS_ITS | Encounter Summary ---
Author Organization [facility] Address [address] [place] [address] Care Team Providers Care Real Estate Appraiser Supervisor Name Role Phone Trisha Aaron MD Primary Care Provider Mona bui Reason for Visit * Reason Comments E-prescribe Rx Request Encounter Details Date Type Department Care Team Description 10/20/2023 Refill [facility] Medical [facility] [address] [place] [phone] Kenneth Bucio DPM E-prescribe Rx Request [...] on filedocumented in this encounter Care Teams Real Estate Appraiser Supervisor Relationship Specialty Start Date End Date Trisha Aaron MD PCP - General Internal Medicine 12/31/17 documented as of this encounter
--- OUTSIDE RECORDS SUMMARY | 2024-07-05 17:12 | XMS_ITS | Encounter Summary ---
Author Organization [facility] Address [address] [place] [address] Care Team Providers Care Library Services Coordinator Name Role Phone Trisha Aaron MD Primary Care Provider Mona bui Reason for Visit * Reason Onset Date Comments radiology 07/03/2022 MRI appt Encounter Details Date Type Department Care Team Description 07/03/2022 Telephone Radiology - [address] [address] Kenneth Bucio DPM radiology (MRI appt) Social [...] on filedocumented in this encounter Care Teams Library Services Coordinator Relationship Specialty Start Date End Date Trisha Aaron MD PCP - General Internal Medicine 12/31/17 documented as of this encounter
--- OUTSIDE RECORDS SUMMARY | 2024-07-05 17:12 | XMS_ITS | Encounter Summary ---
Author Organization [facility] Address [facility] [place] [address] Care Team Providers Care Drone Pilot Name Role Phone Trisha Aaron MD Primary Care Provider Mona bui Encounter Details Date Type Department Care Team Description 04/11/2019 Release of Information Medical Records [address] [place] [id number] Abstract, Provider Social History Tobacco Use Types [...] on filedocumented in this encounter Care Teams Drone Pilot Relationship Specialty Start Date End Date Trisha Aaron MD PCP - General Internal Medicine 12/31/17 documented as of this encounter
--- OUTSIDE RECORDS SUMMARY | 2024-07-05 17:12 | XMS_ITS | Encounter Summary ---
Author Organization [facility] Address [address] [place] [address] Care Team Providers Care Optical Engineer Name Role Phone Trisha Aaron MD Primary Care Provider Mona bui Encounter Details Date Type Department Care Team Description 02/10/2019 Orders Only OBGYN - [address] [address] Ya Ramírez DO Menorrhagia with regular cycle [...] menstruation documented in this encounter Care Teams Optical Engineer Relationship Specialty Start Date End Date Trisha Aaron MD PCP - General Internal Medicine 12/31/17 documented as of this encounter
== END 2024-07-05 14:57 | disposition home or self-care (01) ==
LOC: HO.HOS 14:25
PROVIDERS: PCP Internal Medicine; Visit Provider Orthopaedic Surgery
DX: M25.561 Pain in right knee (principal)
CPT/HCPCS: 20610; 99213

== ENCOUNTER 2024-07-19 09:49 | Outpatient (AMB) | payer OTHER, SELFPAY ==
[2024-07-19 10:15] VITALS: BMI 41.3
--- NOTE | 2024-07-19 10:15 | A.OFFVIS_ITS ---
VS Expanded 07/19/24 10:15 07/19/24 10:27 Height 5 ft 6 in 5 ft 6 in Weight 256 lb 2.834 oz 256 lb BMI 41.3 41.3 Intake Visit Reasons: Obesity Allergies Iodinated Contrast Media [IV CONTRAST] Allergy (Severe, Verified 06/21/24 10:02) ANAPHYLAXIS cyclobenzaprine [From FLEXERIL] Allergy (Intermediate, Verified 06/21/24 10:02) NUMBNESS gadobutrol [From GADAVIST] Allergy (Intermediate, Verified 06/21/24 10:02) DIFFICULTY BREATHING perfume [PERFUME] Allergy (Intermediate, Verified 06/21/24 10:02) TRIGGERS ASTHMA prednisone Allergy (Intermediate, Verified 06/21/24 10:02) swelling fish derived Allergy (Unknown, Verified 07/19/24 11:03) Swelling nuts Adverse Reaction (Uncoded 07/19/24 11:03) Itching Nutrition Presentation Details: Pt presents for MNT for obesity,The Pt was referred by complaint clerk Pt has hx of Asthma, AIRAM, anxiety Pt reports having sensitivity to fish/seafood leads to swelling, nuts and seeds lead to itchy throat food frequency fruits 1x/wk dairy /yogurt : seldom vex/wk starches >22/d prot:poultry/beef beverages: 36 -48 ozd physical activity:sedentary d/t knee pain Reports having tried multiple diets in the past with only short term success BS Monitoring Most Recent Diabetes Results: Cholesterol 150 mg/dL (<200) 06/16/24 HDL Cholesterol 37 mg/dL (>40) L 06/16/24 Triglycerides 134 mg/dL (<150) 06/16/24 Creatinine 0.62 mg/dL (0.5-1.4) 06/16/24 Blood Urea Nitrogen 12 mg/dL (9-16) 06/16/24 Sodium 141 mmol/L (135-145) 06/16/24 Potassium 3.9 mmol/L (3.3-5.1) 06/16/24 Chloride 107 mmol/L (96-108) 06/16/24 Carbon Dioxide 27 mmol/L (22-29) 06/16/24 Calcium 8.8 mg/dL (8.4-10.2) 06/16/24 AST 21 U/L (5-31) 06/16/24 ALT 29 U/L (0-31) 06/16/24 Total Protein 7.7 g/dL (6.5-8.0) 06/16/24 Albumin 3.9 g/dL (3.5-5.0) 06/16/24 ORV-Dkyhiir-HrBelen Equation Height: 5 ft 6 in Weight: 256 lb Resting Metabolic Rate: 1825.39 Calculated Activity Level: Sedentary Calories Needed to Maintain Weight: 2190.47 Diagnosis Nutrition problem #1: overweight/obesity As related to (etiology) #1: diagnosis As evidenced by (sign/symptom) #1: high BMI (41.3 on 07/28) [facility] Medical History Skin lesion Hypertension Left foot pain Chronic cough Right elbow pain Morbid obesity Generalized anxiety disorder Asthma Hypovitaminosis D Mild recurrent major depression Pleuritic chest pain COVID-19 Breast pain, left Sinusitis Low back pain Polyarthralgia Ophthalmoplegic migraine Menieres disease Frequent falls RBBB (right bundle branch block) Leg edema Breast mass, right Left elbow pain Fibromyalgia Ankle pain, right Labial lesion Rectal bleeding H. pylori duodenitis Submandibular lymphadenopathy Chronic neck pain AIRAM (obstructive sleep apnea) Panic attacks Surgical History History of endoscopy History of colonoscopy History of cholecystectomy History of hysterectomy History of tubal ligation History of section History of carpal tunnel surgery of right wrist Family History Father Oral cancer Thyroid cancer Colon cancer Mother NIDDY (non-insulin dependent diabetes mellitus in young) Gastric ulcer Paternal Grandfather Colon cancer Paternal Uncle Colon cancer Other Family history of colon cancer in father Social History Housing: House Are you a primary director of home care hospice to a significant other at home: No Alcohol intake: never Patient Tobacco Use Status: Never used Tobacco e-Cigarette/Vaping Use: Never Used Second Hand Smoke Exposure: No service: No Current occupational status: unemployed Sexual orientation: Straight/Heterosexual Gender identity: Female Cognitive needs: No Hearing needs: No Vision needs: Yes Assessment & Plan Assessment & Plan (1) Morbid obesity: Code(s): E66.01 - Morbid (severe) obesity due to excess calories Category: Medical Plan Wt: 116 Kg ( 07/28 ) Est kcal needs as per MSJ: 2200 (40% carb, 30% protein/fat) Est fluid needs as per 25-30 ml/d: 3500 Est prot per day as per 1 g/kg bw:116 Recommend fiber intake : 8-10 g per day and gradually increase to 25-28 g per day for women and 35-38 g for men or as tolerated Recommend sodium intake per day : less than 2000 mg Educated patient on: ( R = reviewed V = verbalizes understanding N/R = needs review N/A = not applicable * Food sources of carbohydrate, adequate serving sizes and its role in various health conditions: R * Differences between complex carbohydrates a simple carbohydrates, role of fiber in diet: R * Lean protein sources of foods: R * Differences between types of fats and role in diet (mono on saturated fat fatty acids, saturated fatty acids, trans fats): R V N/R * Food sources of sodium in salt and healthy modifications for heart health in kidney health: R V R/V * Vitamins and minerals: R V N/R * Healthy plate method concept: R V N/R * Physical activity: Benefits a precaution: R V N/R * Patient Instructions: Reduce sugars/total carb to 45-60 g at meal 3 /day and 0-20 g as snack see meal ideas as reference Practice mindful eating Coding Level of Care Code Nutr Indiv Intake (40619) Diagnoses Morbid obesity E66.01 Time Spent (min) 30
[2024-07-19 10:27] VITALS: BMI 41.3
--- OUTSIDE RECORDS SUMMARY | 2024-07-19 11:05 | XMS_ITS | Clinical Summary ---
Author Organization [address] [place] [address] Address [address] [place] [address] Phone Care Team Providers Care Registered Nurse Midwife Name Role Phone Trisha Aaron MD Primary Care Provider Allergies Active Allergy Reactions Criticality Noted Date [...] Depression 01/27/2024 Morbid obesity with BMI of 4 0.0-44.9, adult ([facility] V24, [facility] V28) 01/27/2024 Asthma 04/06/2018 AIRAM (obstructive sleep apnea) 04/06/2018 Overview (01/27/2024): 10/2018 Home Sleep Study did not reveal sleep apnea or nocturnal hypoxia. Immunizations Name Administration Dates Next Due Influenza Quadravalent, MDCK , 0.5ml, preservative free (Flucelvax) 6mo and older 04/06/2018 Surgical History Surgery Date Site/Laterality Comments OTHER SURGICAL HISTORY PROCEDURE: PA ARTHRS WRST EXC&/RPR TRIANG FIBROCART&/JOINT SECTION PROCEDURE: [...] PM EDT Office Visit Orthopedic Surgery - [place] [address] [facility] [address] [place] [address] Kenneth Bucio, DPGeovani [address] [facility] [address] [place] [address] Health Maintenance Due Date Last Done Comments [...] age to complete this topic Meningococcal B Vaccine Aged Out No l onger eligible based on patient's age to complete this topic RSV Immunization Patients Under 20 months Aged Out No longer eligible based on patient's age to complete this topic Varicella Vaccines Aged Out No longer eligible based on patient's age to complete this topic Insurance PLAN Care Teams Registered Nurse Midwife Relationship Specialty Start Date End Date Trisha Aaron MD 2 [facility] , [address] Physician Associ D/B/A: [facility] PCP - General Internal Medicine 12/31/17
--- OUTSIDE RECORDS SUMMARY | 2024-07-19 11:05 | XMS_ITS | Encounter Summary ---
Author Organization [facility] [employer] [facility] Address [address] [place] [address] Care Team Providers Care Cafeteria Food Server Name Role Phone Trisha Aaron MD Primary Care Provider Mona bui Encounter Details Date Type Department Care Team Description 07/23/2020 [facility] Medical Records [address] [place] [address] Abstract, Provider Social History Tobacco Use Types [...] on filedocumented in this encounter Care Teams Cafeteria Food Server Relationship Specialty Start Date End Date Trisha Aaron MD PCP - General Internal Medicine 12/31/17 documented as of this encounter
--- OUTSIDE RECORDS SUMMARY | 2024-07-19 11:05 | XMS_ITS | Encounter Summary ---
Author Organization [facility] Address [address] [place] [address] Care Team Providers Care Lumber Tailer Name Role Phone Trisha Aaron MD Primary Care Provider Mona bui Reason for Visit * Reason Onset Date Comments Information Needed 05/16/2019 Encounter Details Date Type Department Care Team Description 05/16/[address] [phone] Trisha Aaron MD Information Needed Social History [...] on filedocumented in this encounter Care Teams Lumber Tailer Relationship Specialty Start Date End Date Trisha Aaron MD PCP - General Internal Medicine 12/31/17 documented as of this encounter
--- OUTSIDE RECORDS SUMMARY | 2024-07-19 11:05 | XMS_ITS | Encounter Summary ---
[facility] [address] [place] [address] Care Team Providers Care Reservoir Engineer Name Role Phone Trisha Aaron MD Primary Care Provider Mona bui Encounter Details Date Type Department Care Team Description 09/28/2018 Brakes Inspector Report Medical Records [address] [place] [address] Trisha Aaron MD Social History Tobacco Use Types Packs/Day Years Used Date Smoking Tobacco: Never Smokeless Tobacco: Never Sex Assigned at Date Recorded Not on file documented as of this encounter Plan of Treatment Not on file documented as of this encounter Visit Diagnoses Not on filedocumented in this encounter Care Teams Reservoir Engineer Relationship Specialty Start Date End Date Trisha Aaron MD PCP - General Internal Medicine 12/31/17 documented as of this encounter
--- OUTSIDE RECORDS SUMMARY | 2024-07-19 11:05 | XMS_ITS | Clinical Summary ---
Author Organization [facility] Address [address] [place] [address] Care Team Providers Care Sand Cutter Name Role Phone Trisha Aaron MD Primary [...] at bedtime as needed. 0 Active Tiotropium [place] Monohydrate (SPIRIVA RESPIMAT) 2.5 MCG/ACT Aero Soln [...] BASELINE HEALTH EXAM 40-64 2019 MAMMOGRAM 2019 BMI CHECK/ADVISE 04/05/2024 07/19/2020, , 05/16/2020, Additional history exists DEPRESSION SCREENING/FOLLOWUP 04/05/2024 11/02/2018 SOCIAL NEEDS SCREENING 04/05/2024 INFLUENZA (Season Ended) 2024 04/06/2018 Care Teams Sand Cutter Relationship Specialty Start Date End Date Trisha Aaron MD PCP - General Internal Medicine 12/31/17
--- OUTSIDE RECORDS SUMMARY | 2024-07-19 11:05 | XMS_ITS | Encounter Summary ---
Author Organization [facility] [facility] Address [address] [place] [address] Care Team Providers Care Atmospheric Physicist Name Role Phone Trisha Aaron MD Primary Care Provider Mona bui Reason for Visit * Reason Onset Date Comments Error 05/08/2020 Encounter Details Date Type Department Care Team Description 05/08/[address] [address] Trisha Aaron MD Error Social History Tobacco [...] on filedocumented in this encounter Care Teams Atmospheric Physicist Relationship Specialty Start Date End Date Trisha Aaron MD PCP - General Internal Medicine 12/31/17 documented as of this encounter
--- OUTSIDE RECORDS SUMMARY | 2024-07-19 11:05 | XMS_ITS | Encounter Summary ---
Author Organization [employer] [facility] Address [address] [place] [address] Care Team Providers Care Account Coordinator Name Role Phone Trisha Aaron MD Primary Care Provider Mona bui Reason for Visit * Reason Comments E-prescribe Rx Request Encounter Details Date Type Department Care Team Description 04/03/2019 Refill OBGYN - [address] [facility] [address] [place] [phone] Nohemy Malhotra CNM [address] [place] [phone] E-prescribe Rx Request Social History Tobacco Use Types Packs/Day Years Used Date Smoking Tobacco: Never Smokeless Tobacco: Never Alcohol Use Standard Drinks/Week Comments No 0 (1 standard drink = 0.6 oz pur e alcohol) Sex Assigned at Date Recorded Not on file documented as of this encounter Miscellaneous Notes * Telephone Encounter - Ana Maria Renae - 04/03/2019 11:01 AM EST WHEN WAS THE PATIENTS LAST ANNUAL ARCHITECT MANAGER EXAM? New pt no ag on file [...] the end of the day? NO Payor: CodeStreet FFS / Plan: [facility] / Product Type: MEDICAID RISK documented in this encounter Plan of Treatment Not on file documented as of this encounter Visit Diagnoses Not on filedocumented in this encounter Care Teams Account Coordinator Relationship Specialty Start Date End Date Trisha Aaron MD PCP - General Internal Medicine 12/31/17 documented as of this encounter
--- OUTSIDE RECORDS SUMMARY | 2024-07-19 11:05 | XMS_ITS | Encounter Summary ---
Author Organization [facility] Address [address] [place] [address] Care Team Providers Care Twisting Department End Finder Name Role Phone Trisha Aaron MD Primary Care Provider Mona bui Reason for Visit * Reason Comments E-prescribe Rx Request Encounter Details Date Type Department Care Team Description 02/22/2023 Refill [facility] Medical [facility] [address] [place] [phone] Kenneth Bucio DPM E-prescribe Rx Request [...] on filedocumented in this encounter Care Teams Twisting Department End Finder Relationship Specialty Start Date End Date Trisha Aaron MD PCP - General Internal Medicine 12/31/17 documented as of this encounter
--- OUTSIDE RECORDS SUMMARY | 2024-07-19 11:05 | XMS_ITS | Encounter Summary ---
Author Organization [employer] [facility] Address [address] [place] [address] Care Team Providers Care Rn Clinical Research Name Role Phone Trisha Aaron MD Primary Care Provider Mona bui Reason for Visit * Reason Onset Date Comments Provider Call Back 10/27/2018 Encounter Details Date Type Department Care Team Description 10/27/2018 Telephone Pulmonology - [place] [address] [facility] [address] [place] [address] Bryan Sheehan MD Provider Call [...] on filedocumented in this encounter Care Teams Rn Clinical Research Relationship Specialty Start Date End Date Trisha Aaron MD PCP - General Internal Medicine 12/31/17 documented as of this encounter
--- OUTSIDE RECORDS SUMMARY | 2024-07-19 11:05 | XMS_ITS | Encounter Summary ---
Author Organization [employer] [facility] Address [address] [place] [address] Care Team Providers Care Circuit Board Repair Technician Name Role Phone Trisha Aaron MD Primary Care Provider Mona bui Reason for Visit * Reason Comments E-prescribe Rx Request Encounter Details Date Type Department Care Team Description 01/02/2019 Refill OBGYN - [address] [facility] [address] [place] [phone] Monica Emanuel CNM [address] [place] [phone] E-prescribe Rx Request Social History Tobacco Use Types Packs/Day Years Used Date Smoking Tobacco: Never Smokeless Tobacco: Never Sex Assigned at Date Recorded Not on file documented as of this encounter Plan of Treatment Not on file documented as of this encounter Visit Diagnoses Not on filedocumented in this encounter Care Teams Circuit Board Repair Technician Relationship Specialty Start Date End Date Trisha Aaron MD PCP - General Internal Medicine 12/31/17 documented as of this encounter
--- OUTSIDE RECORDS SUMMARY | 2024-07-19 11:05 | XMS_ITS | Encounter Summary ---
Author Organization [facility] Address [facility] [place] [address] Care Team Providers Care Paint Factory Worker Name Role Phone Trisha Aaron MD Primary Care Provider Mona bui Encounter Details Date Type Department Care Team Description 10/25/2018 Release of Information Medical Records [address] [place] [phone] Abstract, Provider Social History Tobacco Use Types Packs/Day Years Used Date Smoking Tobacco: Never Smokeless Tobacco: Never Sex Assigned at Date Recorded Not on file documented as of this encounter Plan of Treatment Not on file documented as of this encounter Visit Diagnoses Not on filedocumented in this encounter Care Teams Paint Factory Worker Relationship Specialty Start Date End Date Trisha Aaron MD PCP - General Internal Medicine 12/31/17 documented as of this encounter
--- OUTSIDE RECORDS SUMMARY | 2024-07-19 11:05 | XMS_ITS | Encounter Summary ---
Author Organization [employer] [facility] Address [facility] [place] [address] Care Team Providers Care Sheet Metal Engineer Name Role Phone Trisha Aaron MD Primary Care Provider Mona bui Encounter Details Date Type Department Care Team Description 02/09/2018 Release of Information Medical Records [address] [place] [id number] Abstract, Provider Social History Tobacco Use Types Packs/Day Years Used Date Smoking Tobacco: Never Smokeless Tobacco: Never Sex Assigned at Date Recorded Not on file documented as of this encounter Plan of Treatment Not on file documented as of this encounter Visit Diagnoses Not on filedocumented in this encounter Care Teams Sheet Metal Engineer Relationship Specialty Start Date End Date Trisha Aaron MD PCP - General Internal Medicine 12/31/17 documented as of this encounter
--- OUTSIDE RECORDS SUMMARY | 2024-07-19 11:05 | XMS_ITS | Encounter Summary ---
Author Organization [facility] Address [address] [place] [address] Care Team Providers Care Precision Inspector Name Role Phone Trisha Aaron MD Primary Care Provider Mona bui Reason for Visit * Reason Comments E-prescribe Rx Request Encounter Details Date Type Department Care Team Description 10/11/2022 Refill [facility] Medical [facility] [address] [place] [address] [place] [phone] Kenneth Bucio DPM E-prescribe Rx Request [...] filedocumented in this encounter Care Teams Precision Inspector Relationship Specialty Start Date End Date Trisha Aaron MD PCP - General Internal Medicine 12/31/17 documented as of this encounter
--- OUTSIDE RECORDS SUMMARY | 2024-07-19 11:05 | XMS_ITS | Encounter Summary ---
Author Organization [facility] [employer] [facility] Address [address] [place] [address] Care Team Providers Care Heel Stainer Name Role Phone Trisha Aaron MD Primary Care Provider Mona bui Encounter Details Date Type Department Care Team Description 02/10/2019 Orders Only OBGYN - [address] [address] Ya Ramírez DO Menorrhagia with regular cycle [...] menstruation documented in this encounter Care Teams Heel Stainer Relationship Specialty Start Date End Date Trisha Aaron MD PCP - General Internal Medicine 12/31/17 documented as of this encounter
--- OUTSIDE RECORDS SUMMARY | 2024-07-19 11:05 | XMS_ITS | Encounter Summary ---
Author Organization [facility] Address [facility] [place] [address] Care Team Providers Care Hard Metals Hand Engraver Name Role Phone Trisha Aaron MD Primary Care Provider Mona bui Encounter Details Date Type Department Care Team Description 04/11/2019 Release of Information Medical Records [address] [place] [id number] Abstract, Provider Social History Tobacco Use Types [...] on filedocumented in this encounter Care Teams Hard Metals Hand Engraver Relationship Specialty Start Date End Date Trisha Aaron MD PCP - General Internal Medicine 12/31/17 documented as of this encounter
--- OUTSIDE RECORDS SUMMARY | 2024-07-19 11:05 | XMS_ITS | Encounter Summary ---
Author Organization [facility] [employer] [facility] Address [facility] [place] [address] Care Team Providers Care Cloth Grader Name Role Phone Trisha Aaron MD Primary Care Provider Mona bui Encounter Details Date Type Department Care Team Description 02/09/2018 Transfer Records Medical Records [address] [place] [address] Abstract, Provider Social History Tobacco Use Types Packs/Day Years Used Date Smoking Tobacco: Never Smokeless Tobacco: Never Sex Assigned at Date Recorded Not on file documented as of this encounter Plan of Treatment Not on file documented as of this encounter Visit Diagnoses Not on filedocumented in this encounter Care Teams Cloth Grader Relationship Specialty Start Date End Date Trisha Aaron MD PCP - General Internal Medicine 12/31/17 documented as of this encounter
== END 2024-07-19 13:59 | disposition home or self-care (01) ==
LOC: HO.ENCR 09:50
PROVIDERS: PCP Internal Medicine; Visit Provider Dietitian, Registered
DX: E66.01 Morbid (severe) obesity due to excess calories (principal)

== ENCOUNTER → 2024-07-19 09:49 | Outpatient (BNVA) | payer OTHER, SELFPAY | PROVIDERS: PCP Internal Medicine; Visit Provider Dietitian, Registered | DX: E66.01 Morbid (severe) obesity due to excess calories (principal); Z71.3 Dietary counseling and surveillance; Z68.41 Body mass index [BMI] 40.0-44.9, adult | CPT/HCPCS: 97802 ==

== ENCOUNTER 2024-07-21 10:48 | Outpatient (AMB) | payer OTHER, SELFPAY ==
--- NOTE | 2024-07-21 10:25 | MHC.OFFVIS ---
Vital Signs 07/21/24 10:56 Height 5 ft 6 in Weight 258 lb 13.163 oz BMI 41.8 BP 120/80 Blood Pressure Location Rt brachial Position Sitting Pulse 75 Pulse Source Pulse Oximeter Pulse Oximetry (%) 95 Oxygen Delivery Method Room Air Intake Visit Reasons: Obesity Intake Note: Patient presents here today to establish for Obesity, last seen by DR Juarez Saavedra. Dispute Resolution Specialist Required: Yes Dispute Resolution Specialist Name: [id number] Information Interpreted: non-clinical & clinical Accompanied by: Son Allergies Iodinated Contrast Media [IV CONTRAST] Allergy (Severe, Verified 07/21/24 10:58) ANAPHYLAXIS cyclobenzaprine [From FLEXERIL] Allergy (Intermediate, Verified 07/21/24 10:58) NUMBNESS gadobutrol [From GADAVIST] Allergy (Intermediate, Verified 07/21/24 10:58) DIFFICULTY BREATHING perfume [PERFUME] Allergy (Intermediate, Verified 07/21/24 10:58) TRIGGERS ASTHMA prednisone Allergy (Intermediate, Verified 07/21/24 10:58) swelling fish derived Allergy (Unknown, Verified 07/21/24 10:58) Swelling nuts Adverse Reaction (Uncoded 07/19/24 11:03) Itching HPI Comments Details: The patient is a 44-year-old female presenting with obesity management and weight gain concerns. She was seen in initial consultation with Dr. Saavedra 06/21/24 and was prescribed Zepbound 2.5mg weekly. Weight at the time of her initial visit was 266 lb, 8 oz. Zepbound was not approved and an appeal was denied based on the fact that a trial of phentermine had not been undertaken. The patient has taken phentermine for 6 months in the past and was able to sustain any weight loss from this, She had a gradual increase in weight over the last decade, significantly exacerbated within the last year. The patient correlates weight gain with stress and familial circumstances, alongside ineffective weight-loss attempts through dietary changes under professional guidance. Her obesity complicates her asthma and is a barrier to forthcoming tendon surgery. Additionally, she manages sleep apnea with CPAP therapy and emotional hypertension with occasional medication. Endocrine: Denies history of thyroid problems. No symptoms of Kinjal syndrome - Respiratory: Reports sleep apnea, uses CPAP therapy at night. - Skin: Denies unusual stretch whiteside, facial hair growth. - General: Reports stress-related challenges with weight loss. - Musculoskeletal: Reports recent falls due to weight, upcoming tendon surgery deferred due to obesity. - Cardiovascular: Reports managing episodic emotional hypertension. - Weight: Reports gradual weight gain over 10 years, significant increase in the past year. COUNTS INCLUDE 234 BEDS AT THE [facility] Medical History Skin lesion Hypertension Left foot pain Chronic cough Right elbow pain Morbid obesity Generalized anxiety disorder Asthma Hypovitaminosis D Mild recurrent major depression Pleuritic chest pain COVID-19 Breast pain, left Sinusitis Low back pain Polyarthralgia Ophthalmoplegic migraine Menieres disease Frequent falls RBBB (right bundle branch block) Leg edema Breast mass, right Left elbow pain Fibromyalgia Ankle pain, right Labial lesion Rectal bleeding H. pylori duodenitis Submandibular lymphadenopathy Chronic neck pain AIRAM (obstructive sleep apnea) Panic attacks Surgical History History of endoscopy History of colonoscopy History of cholecystectomy History of hysterectomy History of tubal ligation History of section History of carpal tunnel surgery of right wrist Family History Father Oral cancer Thyroid cancer Colon cancer Mother NIDDY (non-insulin dependent diabetes mellitus in young) Gastric ulcer Paternal Grandfather Colon cancer Paternal Uncle Colon cancer Other Family history of colon cancer in father Social History Housing: House Are you a primary care center manager to a significant other at home: No Alcohol intake: never Patient Tobacco Use Status: Never used Tobacco e-Cigarette/Vaping Use: Never Used Second Hand Smoke Exposure: No service: No Current occupational status: unemployed Sexual orientation: Straight/Heterosexual Gender identity: Female Cognitive needs: No Hearing needs: No Vision needs: Yes Physical Exam Vital Signs: Last Vital Signs Pulse 75 07/21/24 10:56 BP 120/80 07/21/24 10:56 Pulse Ox 95 07/21/24 10:56 Oxygen Delivery Method Room Air 07/21/24 10:56 BMI result Body Mass Index 41.8 Const Other: Absence of Cushingoid features. Absence of acromegalic features. Neck exam reveals nl size thyroid about 15 gms. No thyroid nodules palpable. Heart S1 S2, Reg R/R. No M/R G. Skin exam reveals absence of vitiligo or acanthosis nigricans. Assessment & Plan Assessment & Plan (1) Morbid obesity: Code(s): E66.01 - Morbid (severe) obesity due to excess calories Category: Medical Plan: This is a 44-year-old obese female with sleep apnea on CPAP who has had ongoing struggles with weight management. An appeal for Zepbound was denied based on the fact that the patient had not been on phentermine. The patient does report that she has taken phentermine for up to 6 months in the past several years ago and this was not effective for her. She was able to lose small amount of weight only to have the weight come back on again. This patient would be an ideal candidate for Zepbound given her sleep apnea. She also needs upcoming Achilles tendon surgery in the surgeon is reluctant to do the surgery until she loses weight. I will submit a 2nd appeal letter. The patient has met with nutrition and will be counting calories. She will exercise within her physical limitations. Coding Level of Care Code Est Pt Level 3 (06204) Complex EM visit Add On G2211 Diagnoses Morbid obesity E66.01 Time Spent (min) 30 Comment Time spent reviewing labs/provider notes, face to face, chart doc
[2024-07-21 10:56] VITALS: BP 120/80; PULSE 75; O2SAT 95; BMI 41.8
--- OUTSIDE RECORDS SUMMARY | 2024-07-21 11:49 | XMS_ITS | Clinical Summary ---
Author Organization [address] [place] [address] Address [address] [place] [address] Phone Care Team Providers Care Bus And Trolley Dispatcher Name Role Phone Trisha Aaron MD Primary Care Provider [phone] Allergies Active Allergy Reactions Criticality Noted Date [...] obesity with BMI of 4 0.0-44.9, adult ([facility] V24, [facility] V28) 01/27/2024 Asthma 04/06/2018 AIRAM (obstructive sleep apnea) 04/06/2018 Overview (01/27/2024): 10/2018 Home Sleep Study did not reveal sleep apnea or nocturnal hypoxia. Immunizations Name Administration Dates Next Due Influenza Quadravalent, MDCK , 0.5ml, preservative free (Flucelvax) 6mo and older 04/06/2018 Surgical History Surgery Date Site/Laterality Comments OTHER SURGICAL HISTORY PROCEDURE: [place] AR[place] WRST EXC&/RPR TRIANG FIBROCART&/JOINT SECTION PROCEDURE: [...] PM EDT Office Visit Orthopedic Surgery - [place] [address] [facility] [address] [place] [address] Kenneth Bucio, DPGeovani [address] [facility] [address] [place] [address] Health Maintenance Due Date Last Done Comments [...] complete this topic Insurance PLAN Care Teams Bus And Trolley Dispatcher Relationship Specialty Start Date End Date Trisha Aaron MD 2 [facility] , [address] Physician Associ D/B/A: [facility] Carlin PCP - General Internal Medicine 12/31/17
== END 2024-07-21 11:29 | disposition home or self-care (01) ==
LOC: HO.ENCR 10:49
PROVIDERS: PCP Internal Medicine; Visit Provider Nurse Practitioner Adult Health
DX: E66.01 Morbid (severe) obesity due to excess calories (principal)
CPT/HCPCS: 99213; G2211

== ENCOUNTER 2024-07-21 18:38 | Outpatient (REF) | payer OTHER, SELFPAY ==
--- OUTSIDE RECORDS SUMMARY | 2024-07-21 18:42 | XMS_ITS | Clinical Summary ---
Author Organization [address] [place] [address] Address [address] [place] [address] Phone Care Team Providers Care Kelp Or Seagrass Gatherer Name Role Phone Trisha Aaron MD Primary Care Provider [phone] Allergies Active Allergy Reactions Criticality Noted Date [...] obesity with BMI of 4 0.0-44.9, adult ([facility] V24, [facility] V28) 01/27/2024 Asthma 04/06/2018 AIRAM (obstructive sleep apnea) 04/06/2018 Overview (01/27/2024): 10/2018 Home Sleep Study did not reveal sleep apnea or nocturnal hypoxia. Immunizations Name Administration Dates Next Due Influenza Quadravalent, MDCK , 0.5ml, preservative free (Flucelvax) 6mo and older 04/06/2018 Surgical History Surgery Date Site/Laterality Comments OTHER SURGICAL HISTORY PROCEDURE: [place] [facility] WRST EXC&/RPR TRIANG FIBROCART&/JOINT SECTION PROCEDURE: [...] PM EDT Office Visit Orthopedic Surgery - [place] [address] [facility] [address] [place] [address] Kenneth Bucio, DPGeovani [address] [facility] [address] [place] [address] Health Maintenance Due Date Last Done Comments [...] complete this topic Insurance PLAN Care Teams Kelp Or Seagrass Gatherer Relationship Specialty Start Date End Date Trisha Aaron MD 2 [facility] , [address] Physician Associ D/B/A: [facility] Carlin PCP - General Internal Medicine 12/31/17
== END 2024-07-21 18:39 | disposition home or self-care (01) ==
LOC: HO.MRI 18:38
PROVIDERS: PCP Internal Medicine; Visit Provider Orthopaedic Surgery
DX: S83.241A Other tear of medial meniscus, current injury, right knee, initial encounter (principal)
CPT/HCPCS: 73721; 99212

== ENCOUNTER → 2024-07-21 18:50 | Outpatient (BNV) | payer OTHER, SELFPAY | PROVIDERS: PCP Internal Medicine; Visit Provider Radiology Diagnostic Radiology | DX: M25.461 Effusion, right knee (principal) | CPT/HCPCS: 73721 ==

== ENCOUNTER 2024-07-27 10:51 | Outpatient (AMB) | payer OTHER, SELFPAY ==
--- NOTE | 2024-07-27 10:54 | MHC.PC.OV ---
Vital Signs 07/27/24 11:06 Height 5 ft 6 in Weight 253 lb BMI 40.8 BP 106/74 Blood Pressure Location Lt brachial Position Sitting Respiration 14 Pulse 72 Pulse Source Pulse Oximeter Pulse Oximetry (%) 98 Oxygen Delivery Method Room Air Intake Visit Reasons: meds Intake Note: Medication follow up Project Buyer Required: Yes Project Buyer Language: Custodian Athletic Equipment Name: [id number] jhonny Allergies Iodinated Contrast Media [IV CONTRAST] Allergy (Severe, Verified 07/27/24 10:55) ANAPHYLAXIS cyclobenzaprine [From FLEXERIL] Allergy (Intermediate, Verified 07/27/24 10:55) NUMBNESS gadobutrol [From GADAVIST] Allergy (Intermediate, Verified 07/27/24 10:55) DIFFICULTY BREATHING perfume [PERFUME] Allergy (Intermediate, Verified 07/27/24 10:55) TRIGGERS ASTHMA prednisone Allergy (Intermediate, Verified 07/27/24 10:55) swelling fish derived Allergy (Unknown, Verified 07/27/24 10:55) Swelling nuts Adverse Reaction (Uncoded 07/27/24 10:55) Itching Medication List - Last Reconciled 07/27/24 by Keyla Ac PA-C albuterol sulfate 2.5 mg (3 mL) inhalation Q4H PRN 30 days albuterol sulfate 90 mcg/actuation 2 inhalations inhalation Q6H PRN 30 days azelastine 2 sprays intranasal BID 30 days cholecalciferol (vitamin D3) 50 mcg PO DAILY 90 days clonazepam 1 mg PO BID PRN commode As directed duloxetine 20 mg PO BID esomeprazole magnesium (Nexium) 20 mg PO DAILY fluticasone propionate 50 mcg/actuation (Flonase Allergy Relief) 1 spray intranasal DAILY 30 days oxhojylkisw-ldqblzntb-rojrxzjs 200-62.5-25 mcg (Trelegy Ellipta) 1 inh inhalation DAILY 30 days hydrochlorothiazide 25 mg PO QAM hydroxyzine HCl 50 mg PO BID montelukast 10 mg PO DAILY nebulizers (AeroEclipse II Nebulizer) As directed oxymetazoline 0.05% (Afrin (oxymetazoline)) 2 sprays intranasal Q12H PRN 5 days pregabalin 150 mg PO BID 30 days Shower Chair As directed tiotropium bromide 2.5 mcg/actuation (Spiriva Respimat) 2 puffs PO DAILY tramadol 50 mg PO Q6H PRN 30 days walker As directed zolpidem 10 mg PO BEDTIME PRN Tobacco use date assessed: 07/27/24 Dental Screening Dental Screen Date: 06/14/24 HPI meds HPI Details Patient is a 44-year-old female with a significant medical history asthma, obstructive sleep apnea, htn, morbid obesity, anxiety, depression, frequent falls, fibromyalgia, Meniere's disease, polyarthralgia presenting today for a follow up. phone switch tender Keith Chanel used today -she does complain today of right breast pain. It has been on and off for the last 3 months and over the last few weeks it has been persistent. She has not noticed any lump but it was concerning to her. No nipple drainage. No swollen lymph nodes. CV: Blood pressure today in the office is 106/74. She is on hctz 25 mg. Psych: She follows with Mike betancourt. She is currently on ambien, clonazepam. She feels that her anxiety and depression are exacerbated but attributes this to her pain. GI: Has an appointment in September with Gastroenterology for her gastritis/GERD and nausea. She was recently switched Nexium as she did not have significant improvement with pantoprazole or omeprazole. She does believe that this is a little bit better. Rheum: followed with rheumatology and was told it was it is fibromyalgia and that beyond taking Lyrica and tramadol as needed they would not be able to offer much support. The prescription for the medications were then handed over to her PCP. She states that she does not want to go to physical therapy it her pain is not as well managed as she would like it to be. She uses tramadol about once a day but tries not to take it every day. She does feel that she gets some improvement from the Lyrica and would like to possibly increase this dosage. tried cymbalta in the past but no improvement. we retried this and no improvement. Msk: following with ortho for right knee pain. States she had an injection recently and it was ineffective. Endo: seeing endo for weightloss drugs. we tried to get zepbound covered for her. Pulm: asthma well controlled and cpap she does not like to use but we will use it a few times a week. [place] [facility] [place]. Mammo: UTD, 12/27 Print Designer: Up-to-date Clonoscopy: booked in September with GI and plans to discuss colonoscopy [facility] Medical History Skin lesion Hypertension Left foot pain Chronic cough Right elbow pain Morbid obesity Generalized anxiety disorder Asthma Hypovitaminosis D Mild recurrent major depression Pleuritic chest pain COVID-19 Breast pain, left Sinusitis Low back pain Polyarthralgia Ophthalmoplegic migraine Menieres disease Frequent falls RBBB (right bundle branch block) Leg edema Breast mass, right Left elbow pain Fibromyalgia Ankle pain, right Labial lesion Rectal bleeding H. pylori duodenitis Submandibular lymphadenopathy Chronic neck pain AIRAM (obstructive sleep apnea) Panic attacks Surgical History History of endoscopy History of colonoscopy History of cholecystectomy History of hysterectomy History of tubal ligation History of section History of carpal tunnel surgery of right wrist Family History Father Oral cancer Thyroid cancer Colon cancer Mother NIDDY (non-insulin dependent diabetes mellitus in young) Gastric ulcer Paternal Grandfather Colon cancer Paternal Uncle Colon cancer Other Family history of colon cancer in father Social History Housing: House Are you a primary respiratory care instructor to a significant other at home: No Alcohol intake: never Patient Tobacco Use Status: Never used Tobacco e-Cigarette/Vaping Use: Never Used Second Hand Smoke Exposure: No service: No Current occupational status: unemployed Sexual orientation: Straight/Heterosexual Gender identity: Female Cognitive needs: No Hearing needs: No Vision needs: Yes Questionnaire Thrive Questionnaire Date Thrive assessed: 05/02/24 I am a: Patient What is your living situation today?: I have a steady place to live Within the past 12 months, did the food you bought not last and you didn't have the money to get more?: I choose not to answer this question Within the past 12 months, did you worry whether your food would run out before you got money to buy more?: I choose not to answer this question Do you have trouble paying for medicines?: I choose not to answer this question Do you have trouble getting transportation to medical appointments?: I choose not to answer this question Do you have trouble paying your heating and electricity bill?: I choose not to answer this question Do you have trouble taking care of your child, family member or friend?: I choose not to answer this question Do you have trouble with day-to-day activities such as bathing, preparing meals, shopping, managing finances, etc.?: Yes Are you currently unemployed and looking for a job?: I choose not to answer this question Are you interested in more education?: I choose not to answer this question Please select the resources that you would like help with: None Currently or been in a relationship where the following occur: No concerns reported THRIVE Score: 0 LALIT-7 AMB Questionnaire LALIT-7 Date LALIT - 7 assessed: 06/14/24 Source: Developed by Drs. Juarez Westfall, Suzie Delarosa, Cornelius Brown and colleagues, with an educational nella from [employer]. Physical exam (Primary Care) Vital Signs: Last Vital Signs Pulse 72 07/27/24 11:06 Resp 14 07/27/24 11:06 BP 106/74 07/27/24 11:06 Pulse Ox 98 07/27/24 11:06 Oxygen Delivery Method Room Air 07/27/24 11:06 BMI result Body Mass Index 40.8 Tobacco/Smoking Status: Tobacco use Status Tobacco use date assessed 07/27/24 07/27/24 10:55 Patient Tobacco Use Status Never used Tobacco 07/27/24 10:55 e-Cigarette/Vaping Use Never Used 07/27/24 10:55 Thrive Assessment: Date of Thrive Assessment Date Thrive assessed 05/02/24 07/27/24 10:55 Currently or been in a relationship where the following occur: No concerns reported Const Orientation/consciousness: patient oriented x3 HENMT Ears: hearing grossly normal bilaterally Neck Thyroid: Thyroid normal Lymphatic: no lymphadenopathy noted Chest Breast/axilla inspection: normal inspection of the breasts and normal inspection of the axillae Breast/axilla palpation: normal palpation of the breasts, normal palpation of the axillae and no axillary lymphadenopathy Resp Auscultation: clear to auscultation bilaterally Cardio Rate: regular rate Rhythm: regular rhythm Heart sounds: S1 normal heart sound present and S2 normal heart sound present GI Inspection: Yes normal to inspection Palpation (GI): Soft to palpation and Other GI palpation findings present (nontender, no cva tenderness) Auscultation: normoactive bowel sounds Rectal Exam - Female: deferred Skin General skin exam: no rashes or lesions noted Neuro General: patient oriented x3, gait normal and no focal motor deficits Coding Level of Care Code Est Pt Level 4 (67880) Complex EM visit Add On G2211 Diagnoses Pain of right breast N64.4 Primary hypertension I10 Hypertension type: primary hypertension Fibromyalgia M79.7 Hypovitaminosis D E55.9 Assessment & Plan Assessment & Plan (1) Pain of right breast: Code(s): N64.4 - Mastodynia Category: Medical Plan: Ultrasound and mammogram ordered She will follow up if anything worsens or changes. Patient understands and agrees with this plan. (2) Hypertension: Code(s): I10 - Essential (primary) hypertension Category: Medical Qualifiers: Hypertension type: primary hypertension Qualified Code(s): I10 - Essential (primary) hypertension Plan: WNL continue current regimen (3) Fibromyalgia: Code(s): M79.7 - Fibromyalgia Category: Medical Plan: Increase Lyrica Continue tramadol (4) Hypovitaminosis D: Code(s): E55.9 - Vitamin D deficiency, unspecified Category: Medical Plan: Currently compliant with a supplement. We will recheck lab in a couple of months. Orders: Orders MM diagnostic mammo BI Today N64.4 - Mastodynia US breast RT limited Today N64.4 - Mastodynia Vitamin D 25-OH Total Today E55.9 - Vitamin D deficiency, unspecified Medications: New pregabalin (Lyrica) 200 mg PO BID 30 days 60 caps 5RF Refilled tramadol 50 mg PO Q6H 30 days PRN 20 tabs 0RF pain Discontinued pregabalin Discontinued Reason: Doctor's Order 150 mg PO BID 30 days 60 caps 0RF duloxetine Discontinued Reason: Doctor's Order 20 mg PO BID 180 caps 1RF
[2024-07-27 11:06] VITALS: BP 106/74; PULSE 72; RESP 14; O2SAT 98; BMI 40.8
--- OUTSIDE RECORDS SUMMARY | 2024-07-27 12:44 | XMS_ITS | Clinical Summary ---
Author Organization [address] [facility] Address [address] [place] [address] Phone Care Team Providers Care Director Of Residential Services Name Role Phone Trisha Aaron MD Primary Care Provider [phone] Allergies Active Allergy Reactions Criticality Noted Date [...] obesity with BMI of 4 0.0-44.9, adult ([facility] V24, [facility] V28) 01/27/2024 Asthma 04/06/2018 AIRAM (obstructive sleep apnea) 04/06/2018 Overview (01/27/2024): 10/2018 Home Sleep Study did not reveal sleep apnea or nocturnal hypoxia. Immunizations Name Administration Dates Next Due Influenza Quadravalent, MDCK , 0.5ml, preservative free (Flucelvax) 6mo and older 04/06/2018 Surgical History Surgery Date Site/Laterality Comments OTHER SURGICAL HISTORY PROCEDURE: [place] AR[place] WRST EXC&/RPR TRIANG FIBROCART&/JOINT SECTION PROCEDURE: [...] PM EDT Office Visit Orthopedic Surgery - [place] [address] [facility] [address] [place] [address] Kenneth Bucio, DPGeovani [address] [facility] [address] [place] [address] Health Maintenance Due Date Last Done Comments [...] complete this topic Insurance PLAN Care Teams Director Of Residential Services Relationship Specialty Start Date End Date Trisha Aaron MD 2 [facility] , [address] Physician Associ D/B/A: [facility] Carlin PCP - General Internal Medicine 12/31/17
== END 2024-07-27 11:34 | disposition home or self-care (01) ==
LOC: HO.HMCFM 10:52
PROVIDERS: PCP Internal Medicine; Visit Provider Physician Assistant
DX: N64.4 Mastodynia (principal); I10 Essential (primary) hypertension; M79.7 Fibromyalgia; E55.9 Vitamin D deficiency, unspecified

== ENCOUNTER → 2024-07-27 10:51 | Outpatient (BNVA) | payer OTHER, SELFPAY | PROVIDERS: PCP Internal Medicine; Visit Provider Physician Assistant | DX: N64.4 Mastodynia (principal); I10 Essential (primary) hypertension; M79.7 Fibromyalgia; E55.9 Vitamin D deficiency, unspecified; J45.909 Unspecified asthma, uncomplicated; G47.33 Obstructive sleep apnea (adult) (pediatric); F41.9 Anxiety disorder, unspecified; F32.A Depression, unspecified; Z79.891 Long term (current) use of opiate analgesic; Z79.899 Other long term (current) drug therapy | CPT/HCPCS: 99212 ==

== ENCOUNTER 2024-08-16 14:37 | Outpatient (AMB) | payer OTHER, SELFPAY ==
--- NOTE | 2024-08-16 14:49 | MHC.OFFVIS ---
Vital Signs 08/16/24 14:54 Height 5 ft 6 in Weight 253 lb BMI 40.8 Intake Visit Reasons: OV Bilat CTS Intake Note: Mona 44 yr old female presents today for her follow up visit for her right CTS Patient states her CTS in her right hand has returned and is worse. She is having hand weakness and constant numbness through out the night. HX of Right recurrent carpal tunnel syndrome, S/P repeat release DOS: 10/01/22 S/P carpal tunnel release on 03/16/18, with no improvement Repeat release on 11/30/18, with good improvement of her symptoms following her second surgery Both performed by Dr. Weldon EMG done 10/09/2020 IMPRESSION: Rule out carpal tunnel syndrome, rule out cervical radiculopathy. Nerve conduction EMG study: Normal electrodiagnostic study of both upper extremity with no evidence of carpal tunnel syndrome or nerve entrapment. Normal EMG of the right C5-T1 innervated muscles. Allergies Iodinated Contrast Media [IV CONTRAST] Allergy (Severe, Verified 08/16/24 14:54) ANAPHYLAXIS cyclobenzaprine [From FLEXERIL] Allergy (Intermediate, Verified 08/16/24 14:54) NUMBNESS gadobutrol [From GADAVIST] Allergy (Intermediate, Verified 08/16/24 14:54) DIFFICULTY BREATHING perfume [PERFUME] Allergy (Intermediate, Verified 08/16/24 14:54) TRIGGERS ASTHMA prednisone Allergy (Intermediate, Verified 08/16/24 14:54) swelling fish derived Allergy (Unknown, Verified 08/16/24 14:54) Swelling nuts Adverse Reaction (Uncoded 08/16/24 14:54) Itching HPI HPI OV Bilat CTS: Details: Mona is a 44 year old right hand dominant Kyrgyz speaking woman who returns with complaints of bilateral hand numbness. Her chief complaint is of new onset numbness and tingling in the ulnar side of her right hand including the dorsal ulnar side of her hand. She is also having more problems with numbness and tingling in her left hand waking her up at night. ?She has a Hx of multiple carpal tunnel releases in the past. DOS: 10/01/22 by me with improvement in her nighttime symptoms, but persistent numbness in the median nerve distribution DOS: Dr. Weldon where she had reported her sensation had returned to normal DOS: 1st surgery with Dr. Weldon where she had no improvement in her symptoms Of note, she is 44 and unemployed due to having Fibromyalgia, anxiety, depression, and a Hx of panic attacks. ? [facility] Medical History Skin lesion Hypertension Left foot pain Chronic cough Right elbow pain Morbid obesity Generalized anxiety disorder Asthma Hypovitaminosis D Mild recurrent major depression Pleuritic chest pain COVID-19 Breast pain, left Sinusitis Low back pain Polyarthralgia Ophthalmoplegic migraine Menieres disease Frequent falls RBBB (right bundle branch block) Leg edema Breast mass, right Left elbow pain Fibromyalgia Ankle pain, right Labial lesion Rectal bleeding H. pylori duodenitis Submandibular lymphadenopathy Chronic neck pain AIRAM (obstructive sleep apnea) Panic attacks Surgical History History of endoscopy History of colonoscopy History of cholecystectomy History of hysterectomy History of tubal ligation History of section History of carpal tunnel surgery of right wrist Family History Father Oral cancer Thyroid cancer Colon cancer Mother NIDDY (non-insulin dependent diabetes mellitus in young) Gastric ulcer Paternal Grandfather Colon cancer Paternal Uncle Colon cancer Other Family history of colon cancer in father Social History Housing: House Are you a primary critical care transport nurse to a significant other at home: No Alcohol intake: never Patient Tobacco Use Status: Never used Tobacco e-Cigarette/Vaping Use: Never Used Second Hand Smoke Exposure: No service: No Current occupational status: unemployed Sexual orientation: Straight/Heterosexual Gender identity: Female Cognitive needs: No Hearing needs: No Vision needs: Yes Review of Systems Const All systems reviewed & are unremarkable except as noted in HPI and below Physical Exam Vital Signs: BMI result Body Mass Index 40.8 Const General: no acute distress and alert Orientation/consciousness: patient oriented x3 Neuro General: patient oriented x3 Extrem Other: Evaluation of Bilateral Upper Extremity: The patient is alert, oriented, and in no acute distress Neuro: Normal sensation in the left median nerve distribution. Normal sensation in the left ulnar nerve distribution Dense numbness in the right median nerve distribution that she says is not particularly bothersome. Dense numbness in the right ulnar nerve distribution No thenar or intrinsic wasting Good APB muscle belly firing and good finger cross Vascular: Cap refill brisk ROM: She can make a fist and extend all her digits No locking or catching Nerve Conduction Studies: IMPRESSION: Early carpal tunnel syndrome on the right, no significant changes since last NCS in 2020. Normal EMG of the right C5-T1 innervated muscles Steven Smith MD 05/26/22 IMPRESSION:? Nerve conduction EMG study:? Normal electrodiagnostic study of both upper extremity with no evidence of carpal tunnel syndrome or nerve entrapment. ? Normal EMG of the right C5-T1 innervated muscles. Steven Smith MD 10/09/2020 Psych Appearance: grossly normal Affect: normal affect Attitude: cooperative Assessment & Plan Assessment & Plan (1) Numbness and tingling in left hand: Code(s): R20.0 - Anesthesia of skin; R20.2 - Paresthesia of skin Category: Medical (2) Numbness and tingling in right hand: Code(s): R20.0 - Anesthesia of skin; R20.2 - Paresthesia of skin Category: Medical (3) History of carpal tunnel surgery of right wrist: Comment: (Rt carpal tunnel release 03/16/2018; revision 11/30/2018 - Dr. Weldon, [facility]) Code(s): Z98.890 - Other specified postprocedural states Category: Surgical (4) Polyarthralgia: Code(s): M25.50 - Pain in unspecified joint Category: Medical (5) Fibromyalgia: Code(s): M79.7 - Fibromyalgia Category: Medical Plan Assessment & Plan: 1. Right hand numbness, In the ulnar nerve distirbution With dense numbness This is her chief complaint today 2. Left hand numbness In all digits Symptoms intermittent, but daily, worse at night I educated her about carpal & cubital tunnel syndrome I ordered a NCS to assess for peripheral nerve compression. She will follow up when completed for review 3. History of right carpal tunnel syndrome, S/P repeat carpal tunnel releases DOS: 10/01/22 S/P carpal tunnel release on 03/16/18, with no improvement Repeat release on 11/30/18, with good improvement of her symptoms following her second surgery Both performed by Dr. Weldon Pre-operatively with dense numbness post-operatively dense numbness, somewhat improved from prior No further treatment indicated Scribed for Romana Feldman MD by Mason Ochoa, biomedical engineering technologist, on 08/16/24 at 3:00 PM, EST. Orders: Orders NE electromyogram (EMG) Today R20.0 - Anesthesia of skin, R20.2 - Paresthesia of skin NE nerve conduction velocity Today R20.0 - Anesthesia of skin, R20.2 - Paresthesia of skin Coding Level of Care Code Est Pt Level 4 (98329) Diagnoses Numbness and tingling in left hand R20.0; R20.2 Numbness and tingling in right hand R20.0; R20.2 History of carpal tunnel surgery of right wrist Z98.890 Polyarthralgia M25.50 Fibromyalgia M79.7
[2024-08-16 14:54] VITALS: BMI 40.8
== END 2024-08-16 15:09 | disposition home or self-care (01) ==
LOC: HO.HOS 14:38
PROVIDERS: PCP Internal Medicine; Visit Provider Orthopaedic Surgery
DX: R20.0 Anesthesia of skin (principal); R20.2 Paresthesia of skin; Z98.890 Other specified postprocedural states; M25.50 Pain in unspecified joint; M79.7 Fibromyalgia
CPT/HCPCS: 99213

== ENCOUNTER → 2024-08-16 14:37 | Outpatient (BNVA) | payer OTHER, SELFPAY | PROVIDERS: PCP Internal Medicine; Visit Provider Orthopaedic Surgery | DX: R20.0 Anesthesia of skin (principal); R20.2 Paresthesia of skin; M79.7 Fibromyalgia; M25.50 Pain in unspecified joint; Z98.890 Other specified postprocedural states | CPT/HCPCS: 99212 ==

== ENCOUNTER 2024-08-17 14:55 | Outpatient (AMB) | payer OTHER, SELFPAY ==
--- NOTE | 2024-08-17 14:58 | MHC.OFFVIS ---
Vital Signs 08/17/24 14:59 Height 5 ft 6 in Weight 253 lb BMI 40.8 Intake Visit Reasons: Right knee pain and giving way Intake Note: Mona is a 44 year old female who presents with complaints of progressively worsening right knee pain and giving way. The patient's symptoms have gotten worse over the last year. She has had cortisone injections in the past. The injections gave her minimal relief. She has been wearing a knee brace. She states that her right knee will give out several times per day. She has failed the last 6 weeks of conservative treatment which has included physical therapy exercises, a home exercise program, Tylenol, ibuprofen, tramadol and Lyrica. Most of the pain is along the lateral aspect of the patient's right knee. Adolescent Specialist Required: Yes Adolescent Specialist Services: Adolescent Specialist Present Adolescent Specialist Name: ELISSA Moran/DAINA Allergies Iodinated Contrast Media [IV CONTRAST] Allergy (Severe, Verified 08/17/24 15:05) ANAPHYLAXIS cyclobenzaprine [From FLEXERIL] Allergy (Intermediate, Verified 08/17/24 15:05) NUMBNESS gadobutrol [From GADAVIST] Allergy (Intermediate, Verified 08/17/24 15:05) DIFFICULTY BREATHING perfume [PERFUME] Allergy (Intermediate, Verified 08/17/24 15:05) TRIGGERS ASTHMA prednisone Allergy (Intermediate, Verified 08/17/24 15:05) swelling fish derived Allergy (Unknown, Verified 08/17/24 15:05) Swelling nuts Adverse Reaction (Uncoded 08/17/24 15:05) Itching Medication List - Last Reconciled 08/18/24 by Rosendo Scanlon MD albuterol sulfate 2.5 mg (3 mL) inhalation Q4H PRN 30 days albuterol sulfate 90 mcg/actuation 2 inhalations inhalation Q6H PRN 30 days azelastine 2 sprays intranasal BID 30 days cholecalciferol (vitamin D3) 50 mcg PO DAILY 90 days clonazepam 1 mg PO BID PRN commode As directed esomeprazole magnesium (Nexium) 20 mg PO DAILY fluticasone propionate 50 mcg/actuation (Flonase Allergy Relief) 1 spray intranasal DAILY 30 days jcxxnfhuwrg-nuwybpbvi-loycefaq 200-62.5-25 mcg (Trelegy Ellipta) 1 inh inhalation DAILY 30 days hydrochlorothiazide 25 mg PO QAM hydroxyzine HCl 50 mg PO BID montelukast 10 mg PO DAILY nebulizers (AeroEclipse II Nebulizer) As directed oxymetazoline 0.05% (Afrin (oxymetazoline)) 2 sprays intranasal Q12H PRN 5 days pregabalin (Lyrica) 200 mg PO BID 30 days pregabalin 150 mg PO BID Qsymia 3.75-23 mg ER (phentermine-topiramate) 1 capsule in the morning for 2 weeks, if no side effects, increase to 2 tablets orally daily; 30 days NS Shower Chair As directed tiotropium bromide 2.5 mcg/actuation (Spiriva Respimat) 2 puffs PO DAILY tramadol 50 mg PO Q6H PRN 30 days walker As directed zolpidem 10 mg PO BEDTIME PRN PFSH Medical History Skin lesion Hypertension Left foot pain Chronic cough Right elbow pain Morbid obesity Generalized anxiety disorder Asthma Hypovitaminosis D Mild recurrent major depression Pleuritic chest pain COVID-19 Breast pain, left Sinusitis Low back pain Polyarthralgia Ophthalmoplegic migraine Menieres disease Frequent falls RBBB (right bundle branch block) Leg edema Breast mass, right Left elbow pain Fibromyalgia Ankle pain, right Labial lesion Rectal bleeding H. pylori duodenitis Submandibular lymphadenopathy Chronic neck pain AIRAM (obstructive sleep apnea) Panic attacks Surgical History History of endoscopy History of colonoscopy History of cholecystectomy History of hysterectomy History of tubal ligation History of section History of carpal tunnel surgery of right wrist Family History Father Oral cancer Thyroid cancer Colon cancer Mother NIDDY (non-insulin dependent diabetes mellitus in young) Gastric ulcer Paternal Grandfather Colon cancer Paternal Uncle Colon cancer Other Family history of colon cancer in father Social History Housing: House Are you a primary career development facilitator to a significant other at home: No Alcohol intake: never Patient Tobacco Use Status: Never used Tobacco e-Cigarette/Vaping Use: Never Used Second Hand Smoke Exposure: No service: No Current occupational status: unemployed Sexual orientation: Straight/Heterosexual Gender identity: Female Cognitive needs: No Hearing needs: No Vision needs: Yes Physical Exam Vital Signs: BMI result Body Mass Index 40.8 Const Other: Well-nourished well-developed very friendly female awake alert and oriented x3 in no acute distress Extrem Other: Bilateral lower extremity examination shows good capillary refill, no skin lesions noted, normal sensation light touch Right knee examination shows a moderate effusion, minimal crepitus with range of motion, tenderness along her lateral joint line, positive Eddi's test, no instability Results Reviewed Results Reviewed: Standing full weight-bearing x-rays of the patient's right knee show mild diffuse joint space narrowing, no acute bony abnormalities MRI of the patient's right knee shows mild diffuse degenerative changes as well as a tear of the lateral meniscus Assessment & Plan Assessment & Plan (1) Tear of lateral meniscus of right knee: Code(s): S83.281A - Other tear of lateral meniscus, current injury, right knee, initial encounter Category: Medical Plan Ms. Trip Garland presents with right knee pain and mechanical symptoms due to a lateral meniscus tear. I had a lengthy discussion with the patient regarding the treatment options. At this point she has failed continued non operative treatments. The risks and benefits of right knee arthroscopic surgery were discussed at length with the patient. The patient wishes to proceed with surgery. Surgery will most likely involve right knee arthroscopic partial lateral meniscectomy. She does understand that she may not get 100% relief of her symptoms depending on the severity of her degenerative changes. She will be scheduled for next available date. She will follow-up as instructed. Feel free to call me at any time should questions regarding her orthopedic management arise. I spent 21 minutes in reviewing the patient's records and imaging studies, seeing the patient and documenting in the medical record. Coding Level of Care Code Est Pt Level 3 (85777) Complex EM visit Add On G2211 Diagnoses Tear of lateral meniscus of right knee S83.281A
[2024-08-17 14:59] VITALS: BMI 40.8
--- OUTSIDE RECORDS SUMMARY | 2024-08-17 15:38 | XMS_ITS | Encounter Summary ---
Author Organization [facility] [employer] [facility] Address [address] [place] [address] Care Team Providers Care Steamboat Pilot Name Role Phone Trisha Aaron MD Primary Care Provider Mona bui Encounter Details Date Type Department Care Team Description 07/23/2020 [facility] Medical Records [address] [place] [address] Abstract, Provider Social History Tobacco Use Types [...] on filedocumented in this encounter Care Teams Steamboat Pilot Relationship Specialty Start Date End Date Trisha Aaron MD PCP - General Internal Medicine 12/31/17 documented as of this encounter
--- OUTSIDE RECORDS SUMMARY | 2024-08-17 15:39 | XMS_ITS | Encounter Summary ---
Author Organization [employer] [facility] Address [address] [place] [address] Care Team Providers Care Clinical Office Technician Name Role Phone Trisha Aaron MD Primary Care Provider Mona bui Reason for Visit * Reason Comments E-prescribe Rx Request Encounter Details Date Type Department Care Team Description 01/02/2019 Refill OBGYN - [facility] [address] [place] [address] Monica Emanuel CNM [address] [place] [address] E-prescribe Rx Request Social History Tobacco Use Types Packs/Day Years Used Date Smoking Tobacco: Never Smokeless Tobacco: Never Sex Assigned at Date Recorded Not on file documented as of this encounter Plan of Treatment Not on file documented as of this encounter Visit Diagnoses Not on filedocumented in this encounter Care Teams Clinical Office Technician Relationship Specialty Start Date End Date Trisha Aaron MD PCP - General Internal Medicine 12/31/17 documented as of this encounter
--- OUTSIDE RECORDS SUMMARY | 2024-08-17 15:39 | XMS_ITS | Encounter Summary ---
Author Organization [facility] Address [facility] [place] [address] Care Team Providers Care Director Of Religious Activities Name Role Phone Trisha Aaron MD Primary Care Provider Mona bui Encounter Details Date Type Department Care Team Description 04/11/2019 Release of Information Medical Records [address] [place] [id number] Abstract, Provider Social History Tobacco Use Types [...] on filedocumented in this encounter Care Teams Director Of Religious Activities Relationship Specialty Start Date End Date Trisha Aaron MD PCP - General Internal Medicine 12/31/17 documented as of this encounter
--- OUTSIDE RECORDS SUMMARY | 2024-08-17 15:39 | XMS_ITS | Encounter Summary ---
Author Organization [employer] [facility] Address [address] [place] [address] Care Team Providers Care Adhesive Sprayer Name Role Phone Trisha Aaron MD Primary Care Provider Mona bui Encounter Details Date Type Department Care Team Description 05/09/2020 Orders Only OBGYN - [facility] [address] [place] [address] Ya Ramírez DO Irregular menstrual cycle (Primary [...] (HCC) documented in this encounter Care Teams Adhesive Sprayer Relationship Specialty Start Date End Date Trisha Aaron MD PCP - General Internal Medicine 12/31/17 documented as of this encounter
--- OUTSIDE RECORDS SUMMARY | 2024-08-17 15:39 | XMS_ITS | Encounter Summary ---
Author Organization [facility] Address [address] [place] [address] Care Team Providers Care Mud Boss Name Role Phone Trisha Aaron MD Primary Care Provider Mona bui Reason for Visit * Reason Comments E-prescribe Rx Request Encounter Details Date Type Department Care Team Description 02/22/2023 Refill [facility] [address] [place] [phone] Kenneth Bucio DPM E-prescribe Rx Request [...] on filedocumented in this encounter Care Teams Mud Boss Relationship Specialty Start Date End Date Trisha Aaron MD PCP - General Internal Medicine 12/31/17 documented as of this encounter
--- OUTSIDE RECORDS SUMMARY | 2024-08-17 15:39 | XMS_ITS | Encounter Summary ---
Author Organization [facility] Address [address] [place] [address] Care Team Providers Care Pensionholder Information Clerk Name Role Phone Trisha Aaron MD Primary Care Provider Mona bui Reason for Visit * Reason Comments E-prescribe Rx Request Encounter Details Date Type Department Care Team Description 03/23/2023 Refill [facility] [address] [place] [phone] Kenneth Bucio DPM E-prescribe Rx Request [...] on filedocumented in this encounter Care Teams Pensionholder Information Clerk Relationship Specialty Start Date End Date Trisha Aaron MD PCP - General Internal Medicine 12/31/17 documented as of this encounter
--- OUTSIDE RECORDS SUMMARY | 2024-08-17 15:39 | XMS_ITS | Encounter Summary ---
Author Organization [employer] [facility] Address [facility] [place] [address] Care Team Providers Care Conservation Specialist Name Role Phone Trisha Aaron MD Primary Care Provider Mona ubi Encounter Details Date Type Department Care Team Description 10/25/2018 Release of Information Medical Records [address] [place] [id number] Abstract, Provider Social History Tobacco Use Types Packs/Day Years Used Date Smoking Tobacco: Never Smokeless Tobacco: Never Sex Assigned at Date Recorded Not on file documented as of this encounter Plan of Treatment Not on file documented as of this encounter Visit Diagnoses Not on filedocumented in this encounter Care Teams Conservation Specialist Relationship Specialty Start Date End Date Trisha Aaron MD PCP - General Internal Medicine 12/31/17 documented as of this encounter
--- OUTSIDE RECORDS SUMMARY | 2024-08-17 15:39 | XMS_ITS | Encounter Summary ---
Author Organization [facility] Address [address] [place] [address] Care Team Providers Care Pony Worker Name Role Phone Trisha Aaron MD Primary Care Provider Mona bui Reason for Visit * Reason Comments E-prescribe Rx Request Encounter Details Date Type Department Care Team Description 10/11/2022 Refill [facility] [address] [place] [address] [place] [phone] Kenneth Bucio DPM E-prescribe Rx Request [...] on filedocumented in this encounter Care Teams Pony Worker Relationship Specialty Start Date End Date Trisha Aaron MD PCP - General Internal Medicine 12/31/17 documented as of this encounter
--- OUTSIDE RECORDS SUMMARY | 2024-08-17 15:39 | XMS_ITS | Encounter Summary ---
Author Organization [employer] [facility] Address [address] [place] [address] Care Team Providers Care Marketing Assistant Name Role Phone Trisha Aaron MD Primary Care Provider Mona bui Reason for Visit * Reason Comments E-prescribe Rx Request Encounter Details Date Type Department Care Team Description 04/03/2019 Refill OBGYN - [facility] [address] [place] [address] Nohemy Malhotra CNM [address] [place] [phone] E-prescribe Rx Request Social History [...] EST WHEN WAS THE PATIENTS LAST ANNUAL DIESEL MECHANIC APPRENTICE EXAM? New pt no ag on file [...] the end of the day? NO Payor: [employer] FFS / Plan: [facility] / Product Type: MEDICAID RISK documented in this encounter Plan of Treatment Not on file documented as of this encounter Visit Diagnoses Not on filedocumented in this encounter Care Teams Marketing Assistant Relationship Specialty Start Date End Date Trisha Aaron MD PCP - General Internal Medicine 12/31/17 documented as of this encounter
--- OUTSIDE RECORDS SUMMARY | 2024-08-17 15:39 | XMS_ITS | Encounter Summary ---
Author Organization [email or web address] [facility] Address [facility] [place] [address] Care Team Providers Care Gericare Aide Teacher Name Role Phone Trisha Aaron MD Primary Care Provider Mona bui Encounter Details Date Type Department Care Team Description 06/11/2020 Orders Only Medical Records [address] [place] [address] Ya Ramírez DO Social History Tobacco Use [...] on filedocumented in this encounter Care Teams Gericare Aide Teacher Relationship Specialty Start Date End Date Trisha Aaron MD PCP - General Internal Medicine 12/31/17 documented as of this encounter
--- OUTSIDE RECORDS SUMMARY | 2024-08-17 15:39 | XMS_ITS | Encounter Summary ---
Author Organization [facility] [employer] [facility] Address [address] [place] [address] Care Team Providers Care Purchase Analyst Name Role Phone Trisha Aaron MD Primary Care Provider Mona bui Reason for Visit * Reason Onset Date Comments Error 05/08/2020 Encounter Details Date Type Department Care Team Description 05/08/[address] [address] Trisha Aaron MD Error Social History Tobacco [...] on filedocumented in this encounter Care Teams Purchase Analyst Relationship Specialty Start Date End Date Trisha Aaron MD PCP - General Internal Medicine 12/31/17 documented as of this encounter
--- OUTSIDE RECORDS SUMMARY | 2024-08-17 15:39 | XMS_ITS | Encounter Summary ---
Author Organization [facility] Address [facility] [place] [address] Care Team Providers Care Teletype Clerk Name Role Phone Trisha Aaron MD Primary Care Provider Mona bui Encounter Details Date Type Department Care Team Description 02/09/2018 Release of Information Medical Records [address] [place] [id number] Abstract, Provider Social History Tobacco Use Types Packs/Day Years Used Date Smoking Tobacco: Never Smokeless Tobacco: Never Sex Assigned at Date Recorded Not on file documented as of this encounter Plan of Treatment Not on file documented as of this encounter Visit Diagnoses Not on filedocumented in this encounter Care Teams Teletype Clerk Relationship Specialty Start Date End Date Trisha Aaron MD PCP - General Internal Medicine 12/31/17 documented as of this encounter
--- OUTSIDE RECORDS SUMMARY | 2024-08-17 15:39 | XMS_ITS | Encounter Summary ---
Author Organization [facility] [employer] [facility] Address [address] [place] [address] Care Team Providers Care Investment Sales Assistant Name Role Phone Trisha Aaron MD Primary Care Provider Mona bui Encounter Details Date Type Department Care Team Description 02/10/2019 [facility] Only [facility] [address] [place] [address] Ya Ramírez DO Menorrhagia with regular cycle [...] menstruation documented in this encounter Care Teams Investment Sales Assistant Relationship Specialty Start Date End Date Trisha Aaron MD PCP - General Internal Medicine 12/31/17 documented as of this encounter
--- OUTSIDE RECORDS SUMMARY | 2024-08-17 15:39 | XMS_ITS | Clinical Summary ---
Author Organization [address] [place] [address] Address [address] [place] [address] Phone Care Team Providers Care Enchilada Maker Name Role Phone Trisha Aaron MD Primary [...] obesity with BMI of 4 0.0-44.9, adult ([facility] V24, [facility] V28) 01/27/2024 Asthma 04/06/2018 AIRAM (obstructive sleep apnea) 04/06/2018 Overview (01/27/2024): 10/2018 Home Sleep Study did not reveal sleep apnea or nocturnal hypoxia. Immunizations Name Administration Dates Next Due Influenza Quadravalent, MDCK , 0.5ml, preservative free (Flucelvax) 6mo and older 04/06/2018 Surgical History Surgery Date Site/Laterality Comments OTHER SURGICAL HISTORY PROCEDURE: [place] ARTHRS WRST EXC&/RPR TRIANG FIBROCART&/JOINT SECTION PROCEDURE: [...] PM EDT Office Visit Orthopedic Surgery - [place] [address] [facility] [address] [place] [address] Kenneth Bucio, DPGeovani 175 [facility] [address] [place] [address] Health Maintenance Due Date Last Done Comments [...] complete this topic Insurance PLAN Care Teams Enchilada Maker Relationship Specialty Start Date End Date Trisha Aaron MD 2 [facility] , [address] Physician Associ D/B/A: [facility] Carlin PCP - General Internal Medicine 12/31/17
--- OUTSIDE RECORDS SUMMARY | 2024-08-17 15:39 | XMS_ITS | Encounter Summary ---
Author Organization [employer] [facility] Address [address] [place] [address] Care Team Providers Care Foil Wrapper Name Role Phone Trisha Aaron MD Primary Care Provider Mona bui Reason for Visit * Reason Onset Date Comments External Sleep Study Request 10/18/2018 Jasiel e sleep study Encounter Details Date Type Department Care Team Description 10/18/2018 Telephone Pulmonology - [address] [place] [phone] Bryan Sheehan MD External Sleep Study Request [...] on filedocumented in this encounter Care Teams Foil Wrapper Relationship Specialty Start Date End Date Trisha Aaron MD PCP - General Internal Medicine 12/31/17 documented as of this encounter
--- OUTSIDE RECORDS SUMMARY | 2024-08-17 15:39 | XMS_ITS | Encounter Summary ---
Author Organization [employer] [facility] Address [address] [place] [address] Care Team Providers Care Sheeter Machine Operator Name Role Phone Trisha Aaron MD Primary Care Provider Mona bui Encounter Details Date Type Department Care Team Description 11/03/2018 Orders Only Medical Records [address] [place] [address] Bryan Sheehan MD Social History Tobacco Use [...] on filedocumented in this encounter Care Teams Sheeter Machine Operator Relationship Specialty Start Date End Date Trisha Aaron MD PCP - General Internal Medicine 12/31/17 documented as of this encounter
== END 2024-08-17 15:16 | disposition home or self-care (01) ==
LOC: HO.HOS 14:56
PROVIDERS: PCP Internal Medicine; Visit Provider Orthopaedic Surgery
DX: S83.281A Other tear of lateral meniscus, current injury, right knee, initial encounter (principal)
CPT/HCPCS: 99213; G2211

== ENCOUNTER → 2024-08-17 14:55 | Outpatient (BNVA) | payer OTHER, SELFPAY | PROVIDERS: PCP Internal Medicine; Visit Provider Orthopaedic Surgery | DX: S83.281A Other tear of lateral meniscus, current injury, right knee, initial encounter (principal); X58.XXXA Exposure to other specified factors, initial encounter; Y93.9 Activity, unspecified; Y92.9 Unspecified place or not applicable; Y99.9 Unspecified external cause status | CPT/HCPCS: 99212 ==

== ENCOUNTER 2024-09-01 10:06 | Outpatient (REF) | payer OTHER, SELFPAY ==
--- NOTE | ~2024-09-01 | US_ITS ---
EXAMINATION: MM DIAGNOSTIC DIGITAL BREAST TOMOSYNTHESIS, RIGHT Limited right breast ultrasound. CLINICAL INFORMATION: Right breast pain upper outer to lower outer quadrant [in the axilla and radiates towards the nipple. Patient had similar pain in December when she came for diagnostic imaging. COMPARISON: Mammography: [facility] on PACS. TECHNIQUE: Digital breast tomosynthesis is performed in both the craniocaudal and mediolateral oblique views along with computer-aided detection (CAD). Synthesized 2D images are generated from the tomosynthesis. FINDINGS: There are scattered areas of fibroglandular density (ACR BI-RADS breast composition Category b). There are no significant masses, abnormal calcifications, or other abnormalities. Targeted color Doppler ultrasound scanning in the area of the patient's pain in the right breast from 7-11 o'clock demonstrates normal fibronodular breast tissue. Again seen is slightly decreased in size is a simple cyst measures 10 x 5 x 5 mm and is smaller compared with prior. US/US breast RT limited mamm only IMPRESSION: No mammographic or sonographic abnormality to account for the patient's right breast pain. Recommend clinical evaluation follow-up. Simple cyst on ultrasound. Benign. ASSESSMENT: BI-RADS BI-RADS 2 - Benign Findings RECOMMENDATION: 1. Patient should be managed based on the clinical impression. 2. Otherwise, routine annual screening mammography. Results were provided to the patient at time of visit by the technologist. This patient's information was entered into a reminder system with a target due date for their next mammogram. Electronically signed by: Jen Wilkins DO 09/01/2024 02:09 PM KENNETH
--- OUTSIDE RECORDS SUMMARY | 2024-09-01 10:41 | XMS_ITS | Encounter Summary ---
[facility] Address [address] [place] [address] Care Team Providers Care Insurance And Benefits Clerk Name Role Phone Trisha Aaron MD Primary Care Provider Mona bui Reason for Visit * Reason Onset Date Comments radiology 07/03/2022 MRI appt Encounter Details Date Type Department Care Team Description 07/03/2022 Telephone Radiology - [address] [address] Kenneth Bucio DPM radiology (MRI appt) Social [...] filedocumented in this encounter Care Teams Insurance And Benefits Clerk Relationship Specialty Start Date End Date Trisha Aaron MD PCP - General Internal Medicine 12/31/17 documented as of this encounter
== END 2024-09-01 10:07 | disposition home or self-care (01) ==
LOC: HO.MAMMO 10:06
PROVIDERS: PCP Physician Assistant; Visit Provider Physician Assistant
DX: N64.4 Mastodynia (principal)
CPT/HCPCS: 76642; 77061; 77065

== ENCOUNTER → 2024-09-01 10:30 | Outpatient (BNV) | payer OTHER, SELFPAY | PROVIDERS: PCP Physician Assistant; Visit Provider Internal Medicine | DX: N64.4 Mastodynia (principal); R92.321 Mammographic fibroglandular density, right breast | CPT/HCPCS: 76642; 77061; 77065 ==

== ENCOUNTER 2024-09-06 11:08 | Outpatient (AMB) | payer OTHER, SELFPAY ==
--- NOTE | 2024-09-06 11:09 | A.OFFVIS_ITS ---
Vital Signs 3 09/06/24 11:26 Height 5 ft 6 in Weight 237 lb 4 oz BMI 38.3 BP 112/64 Blood Pressure Location Lt brachial Position Sitting Pulse 82 Pulse Source Pulse Oximeter Pulse Oximetry (%) 99 Oxygen Delivery Method Room Air Intake Visit Reasons: ED FUV. R/S from 09/05 provider illness. Intake Note: New patient for initial eval of abd pain. Pt seen at ED 05/2024. CC; C.O. N+V w/ hematemesis, intense upper abd pain. Pt states she was informed that the CT scan was negative, however, she should be following up with GI. Pt would also like to discuss colo in the near future as it was previously discussed at last visit. Shift Engineer Required: Yes Shift Engineer Services: Shift Engineer Present Shift Engineer Name: Scotty [id number] Information Interpreted: clinical only Accompanied by: Son Allergies Iodinated Contrast Media [IV CONTRAST] Allergy (Severe, Verified 08/17/24 15:05) ANAPHYLAXIS cyclobenzaprine [From FLEXERIL] Allergy (Intermediate, Verified 08/17/24 15:05) NUMBNESS gadobutrol [From GADAVIST] Allergy (Intermediate, Verified 08/17/24 15:05) DIFFICULTY BREATHING perfume [PERFUME] Allergy (Intermediate, Verified 08/17/24 15:05) TRIGGERS ASTHMA prednisone Allergy (Intermediate, Verified 08/17/24 15:05) swelling fish derived Allergy (Unknown, Verified 08/17/24 15:05) Swelling nuts Adverse Reaction (Uncoded 08/17/24 15:05) Itching HPI HPI ED FUV. R/S from 09/05 provider illness.: Details: Assessment & Plan (1) Gastritis: Comment: H pylori driven Code(s): K29.70 - Gastritis, unspecified, without bleeding Plan - Tali Valdes, DIPESH-C: [place] #[id number], Eyad. It appears that her colonoscopy was cancelled. She says she has good days and bad days. I ask about the colonoscopy and she tells me she needed an emergency surgery and was having wound healing problems. The surgery was performed by her OPERATIONS MANAGEMENT TRAINEE at [facility]. She is now feeling much, much better from this ordeal. She is willing to reschedule this - but after September 17 as she will be traveling at that time. The dulcolax is not working well for her CIC, it does not move her bowels consistently and if she takes it daily it causes her a great deal of abd pain. I think we need to move her to Linzess and will start at the lowest dose. Her stomach pain and GerD is currently well controlled on her protonix 40mg bid and the sucralfate which will be chronic in the face of her tx resistant HP. She is agreeable to 2-3 week f/u to titrate the CIC tx. (2) Bile acid esophageal reflux: Code(s): K21.9 - Gastro-esophageal reflux disease without esophagitis Plan - DIPESH Funk-C: A bad combination of bile irritation and treatment resistant H pylori contributes to her symptoms Medications: Refilled: sucralfate 2 grams (2 x 1 gram) PO DAILY 60 tabs 0RF pantoprazole 40 mg PO BID 90 days 180 tabs 3RF (3) Rectal bleeding: Comment: PLEASE ORDER AND SCHEDULE COLONOSCOPY (we can't do that yet) Code(s): K62.5 - Hemorrhage of anus and rectum (4) Hemorrhoids: Code(s): K64.9 - Unspecified hemorrhoids Plan - DIPESH Funk-C: She has had no recurrence of rectal bleeding and everything resolved quite well using Proctosol cream. Medications: Changed: From: hydrocortisone 2.5% (Proctosol HC) 1 appl VT BID 30 grams 3RF hemorrhoids To: hydrocortisone 2.5% (Proctosol HC) 1 dose bid VT 2 times a day; 30 days 30 grams 3RF (5) H. pylori duodenitis: Comment: Treatment resistant due to patient's intolerance of antibiotics, Code(s): K29.80 - Duodenitis without bleeding; B96.81 - Helicobacter pylori [H. pylori] as the cause of diseases classified elsewhere (6) GERD (gastroesophageal reflux disease): Code(s): K21.9 - Gastro-esophageal reflux disease without esophagitis Qualifiers: Esophagitis presence: without esophagitis Qualified Code(s): K21.9 - Gastro-esophageal reflux disease without esophagitis Medications: Refilled: sucralfate 2 grams (2 x 1 gram) PO DAILY 60 tabs 0RF pantoprazole 40 mg PO BID 90 days 180 tabs 3RF (7) Chronic idiopathic constipation: Code(s): K59.04 - Chronic idiopathic constipation Medications: New: linaclotide (Linzess) 72 mcg PO QAM 30 days [address] OF ABD AND PELVIS [facility] 05/2024 FINDINGS: Paediatric Physiotherapist View Findings, Lines and Tubes: None. Visualized Chest: Minimal left basilar atelectasis. Trace pericardial fluid. Diaphragm: Tiny hiatal hernia. Liver: There is diffuse hepatic steatosis. Focal area of low attenuation anteriorly in segment 4 is geographic on coronal reconstruction and is likely an area of more focal fatty infiltration. Gallbladder: Absent consistent with prior cholecystectomy. Bile ducts: No biliary ductal dilation. Spleen: Normal. Pancreas: No peripancreatic stranding or fluid. Adrenal glands: No mass or thickening. Kidneys and ureters: No solid renal mass. No hydroureteronephrosis. No nephrolithiasis. Bladder: Nondistended urinary bladder. Reproductive organs: Post surgical changes. Stomach, small bowel, and large bowel: No bowel obstruction. No evidence of acute inflammation. Enteric contrast is present in the small bowel loops. The distal colon is nondistended. Appendix: No evidence for appendicitis. Peritoneum and retroperitoneum: Very trace free fluid in the pelvis which can be physiologic. No omental or mesenteric lesions. Lymph nodes: No enlarged lymph nodes. Blood vessels: Normal. No aneurysm. No evidence of venous thrombosis. Abdominal and pelvic wall: No acute abnormality. Small fat-containing umbilical hernia. Bones: No acute abnormality. IMPRESSION: No acute abnormality on CT of the abdomen and pelvis. Hepatic steatosis. WBC 10.4 https://[employer]/RefferedAgent.com/Ask.com/reports/mp_unified_driver?pa rameters=^MINE^,26 086545.0,762002678.0,89744527.0,704387493.0,1121.0,%22MP_REACH%22,%22../../re sources/UnifiedContent%22,%22mp_reach_v5%22,9# 05/20/24 10:27 -- -- RBC 4.86 https://[employer]/RefferedAgent.com/Ask.com/reports/mp_unified_driver?pa rameters=^MINE^,26 472859.0,814436786.0,42498917.0,401026249.0,1121.0,%22MP_REACH%22,%22../../re sources/UnifiedContent%22,%22mp_reach_v5%22,9# 05/20/24 10:27 -- -- Hgb 15.1 https://[employer]/RefferedAgent.com/Ask.com/reports/mp_unified_driver?pa rameters=^MINE^,26 376993.0,125511345.0,94382081.0,329269455.0,1121.0,%22MP_REACH%22,%22../../re sources/UnifiedContent%22,%22mp_reach_v5%22,9# 05/20/24 10:27 -- -- Hct 42.3 https://[employer]/RefferedAgent.com/Ask.com/reports/mp_unified_driver?pa rameters=^MINE^,26 979636.0,516282965.0,76593923.0,606667577.0,1121.0,%22MP_REACH%22,%22../../re sources/UnifiedContent%22,%22mp_reach_v5%22,9# 05/20/24 10:27 -- -- MCV 87.0 https://[employer]/RefferedAgent.com/Ask.com/reports/mp_unified_driver?pa rameters=^MINE^,26 459300.0,890251636.0,73818215.0,559084125.0,1121.0,%22MP_REACH%22,%22../../re sources/UnifiedContent%22,%22mp_reach_v5%22,9# 05/20/24 10:27 -- -- MCH 31.1 https://[employer]/RefferedAgent.com/Ask.com/reports/mp_unified_driver?pa rameters=^MINE^,26 304396.0,074599868.0,07586990.0,837614381.0,1121.0,%22MP_REACH%22,%22../../re sources/UnifiedContent%22,%22mp_reach_v5%22,9# 05/20/24 10:27 -- -- MCHC 35.7 https://[employer]/RefferedAgent.com/Ask.com/reports/mp_SplashMaps_driver?pa rameters=^MINE^,26 447443.0,301755525.0,89802044.0,661333354.0,1121.0,%22MP_REACH%22,%22../../re sources/UnifiedContent%22,%22mp_reach_v5%22,9# 05/20/24 10:27 -- -- Platelet Count 345 https://[employer]/RefferedAgent.com/Ask.com/reports/mp_unified_driver?pa rameters=^MINE^,269 60473.0,296009051.0,01192124.0,209401274.0,1121.0,%22MP_REACH%22,%22../../res ources/UnifiedContent%22,%22mp_reach_v5%22,9# 05/20/24 10:27 -- -- RDW-SD 39.5 https://[employer]/RefferedAgent.com/Ask.com/reports/mp_unified_driver?pa rameters=^MINE^,26 105403.0,217444481.0,05105454.0,004810958.0,1121.0,%22MP_REACH%22,%22../../re sources/UnifiedContent%22,%22mp_reach_v5%22,9# 05/20/24 10:27 -- -- MPV ?9.0 https://[employer]/RefferedAgent.com/Ask.com/reports/Planitax_unified_driver?pa rameters=^MINE^,269 19177.0,177640594.0,87232310.0,970209476.0,1121.0,%22MP_REACH%22,%22../../res ources/UnifiedContent%22,%22mp_reach_v5%22,9# 05/20/24 10:27 -- -- Nucleated RBC (Automated) 0.0 https://[employer]/RefferedAgent.com/Ask.com/reports/mp_unified_driver?pa rameters=^MINE^,269 76624.0,182412279.0,00384101.0,659491327.0,1121.0,%22MP_REACH%22,%22../../res ources/UnifiedContent%22,%22mp_reach_v5%22,9# 05/20/24 10:27 -- -- Abs. NRBC 0.0 https://[employer]/RefferedAgent.com/Ask.com/reports/mp_unified_driver?pa rameters=^MINE^,269 62172.0,904209424.0,85154920.0,120568853.0,1121.0,%22MP_REACH%22,%22../../res ources/UnifiedContent%22,%22mp_reach_v5%22,9# 05/20/24 10:27 -- -- Abs. Neut ?9.1 https://[employer]/RefferedAgent.com/Ask.com/reports/mp_unified_driver?pa rameters=^MINE^,269 33544.0,352383967.0,53517785.0,851992446.0,1121.0,%22MP_REACH%22,%22../../res ources/UnifiedContent%22,%22mp_reach_v5%22,9# 05/20/24 10:27 -- -- Abs. Lymph 0.8 https://[employer]/RefferedAgent.com/Ask.com/reports/mp_SplashMaps_driver?pa rameters=^MINE^,269 74236.0,792291051.0,00655637.0,313972967.0,1121.0,%22MP_REACH%22,%22../../res ources/UnifiedContent%22,%22mp_reach_v5%22,9# 05/20/24 10:27 -- -- Abs. Divide ?0.3 https://[employer]/RefferedAgent.com/Ask.com/reports/mp_unified_driver?pa rameters=^MINE^,269 04817.0,488067523.0,13560162.0,612500987.0,1121.0,%22MP_REACH%22,%22../../res ources/UnifiedContent%22,%22mp_reach_v5%22,9# 05/20/24 10:27 -- -- Abs. Eo 0.0 https://[employer]/RefferedAgent.com/Ask.com/reports/mp_unified_driver?pa rameters=^MINE^,269 49616.0,798127565.0,69404937.0,429155594.0,1121.0,%22MP_REACH%22,%22../../res Secloreces/UnifiedContent%22,%22mp_reach_v5%22,9# 05/20/24 10:27 -- -- Abs. Baso 0.0 https://[employer]/RefferedAgent.com/Ask.com/reports/mp_unified_driver?pa rameters=^MINE^,269 45561.0,291697540.0,24606061.0,700076374.0,1121.0,%22MP_REACH%22,%22../../res Cyvera/UnifiedContent%22,%22mp_reach_v5%22,9# 05/20/24 10:27 -- -- Neut % ?87.9 https://[employer]/RefferedAgent.com/Ask.com/reports/mp_unified_driver?pa rameters=^MINE^,26 861565.0,425545171.0,89358336.0,529326961.0,1121.0,%22MP_REACH%22,%22../../re sources/UnifiedContent%22,%22mp_reach_v5%22,9# 05/20/24 10:27 -- -- Lymph % ?8.0 https://[employer]/RefferedAgent.com/Ask.com/reports/Planitax_SplashMaps_driver?pa rameters=^MINE^,269 89840.0,551539597.0,41604677.0,485702084.0,1121.0,%22MP_REACH%22,%22../../res ources/UnifiedContent%22,%22mp_reach_v5%22,9# 05/20/24 10:27 -- -- Divide % ?3.1 https://[employer]/RefferedAgent.com/Ask.com/reports/Planitax_SplashMaps_driver?pa rameters=^MINE^,269 26696.0,847482507.0,70541236.0,224895383.0,1121.0,%22MP_REACH%22,%22../../res ources/UnifiedContent%22,%22mp_reach_v5%22,9# 05/20/24 10:27 -- -- Eos % 0.4 https://[employer]/RefferedAgent.com/Ask.com/reports/Planitax_SplashMaps_driver?pa rameters=^MINE^,269 14563.0,077220524.0,73082073.0,207592923.0,1121.0,%22MP_REACH%22,%22../../res ources/UnifiedContent%22,%22mp_reach_v5%22,9# 05/20/24 10:27 -- -- Baso % 0.1 https://[employer]/RefferedAgent.com/Ask.com/reports/Planitax_SplashMaps_driver?pa rameters=^MINE^,269 11066.0,101950437.0,67588044.0,238708842.0,1121.0,%22MP_REACH%22,%22../../res Secloreces/UnifiedContent%22,%22mp_reach_v5%22,9# 05/20/24 10:27 -- -- Imm Gran 0.5 https://[employer]/RefferedAgent.com/Ask.com/reports/Planitax_SplashMaps_driver?pa rameters=^MINE^,269 14216.0,964070732.0,59372659.0,041707854.0,1121.0,%22MP_REACH%22,%22../../res ources/UnifiedContent%22,%22mp_reach_v5%22,9# 05/20/24 10:27 -- -- Abs. Imm Gran 0.1 https://[employer]/RefferedAgent.com/Ask.com/reports/Planitax_SplashMaps_driver?pa rameters=^MINE^,269 77660.0,744311013.0,38071133.0,803222340.0,1121.0,%22MP_REACH%22,%22../../res Secloreces/UnifiedContent%22,%22mp_reach_v5%22,9# 05/20/24 10:27 -- -- Hold Blue Top SPECIMEN DISCARDED AFTER 4 HOURS. https://[employer]/RefferedAgent.com/Ask.com/reports/Planitax_SplashMaps_driver?pa rameters=^MINE^, 98741011.0,618023159.0,55016823.0,110838271.0,1121.0,%22MP_REACH%22,%22../../ resources/UnifiedContent%22,%22mp_reach_v5%22,9# 05/20/24 10:27 -- -- -CHEMISTRY (19) Sodium 138 https://[employer]/RefferedAgent.com/Ask.com/reports/Planitax_SplashMaps_driver?pa rameters=^MINE^,269 93060.0,744028041.0,21348839.0,659004031.0,1121.0,%22MP_REACH%22,%22../../res ources/UnifiedContent%22,%22mp_reach_v5%22,9# 05/20/24 10:27 -- -- Potassium 3.8 https://[employer]/RefferedAgent.com/Ask.com/reports/Planitax_SplashMaps_driver?pa rameters=^MINE^,269 34179.0,415234970.0,37171478.0,021321837.0,1121.0,%22MP_REACH%22,%22../../res ources/UnifiedContent%22,%22mp_reach_v5%22,9# 05/20/24 10:27 -- -- Chloride 103 https://[employer]/RefferedAgent.com/Ask.com/reports/Planitax_SplashMaps_driver?pa rameters=^MINE^,269 59879.0,354417240.0,97371982.0,622462712.0,1121.0,%22MP_REACH%22,%22../../res ources/UnifiedContent%22,%22mp_reach_v5%22,9# 05/20/24 10:27 -- -- Bicarbonate Level 24 https://[employer]/RefferedAgent.com/Ask.com/reports/Planitax_SplashMaps_driver?pa rameters=^MINE^,2696 4066.0,351598637.0,15284670.0,646763059.0,1121.0,%22MP_REACH%22,%22../../reso urces/UnifiedContent%22,%22mp_reach_v5%22,9# 05/20/24 10:27 -- -- Anion Gap 11 https://[employer]/RefferedAgent.com/Ask.com/reports/Planitax_SplashMaps_driver?pa rameters=^MINE^,2696 4066.0,342030423.0,63687189.0,450520366.0,1121.0,%22MP_REACH%22,%22../../reso urces/UnifiedContent%22,%22mp_reach_v5%22,9# 05/20/24 10:27 -- -- Glucose Level ?101 https://[employer]/RefferedAgent.com/Ask.com/reports/mp_unified_driver?pa rameters=^MINE^,269 94027.0,964048850.0,17565782.0,787200607.0,1121.0,%22MP_REACH%22,%22../../res ources/UnifiedContent%22,%22mp_reach_v5%22,9# 05/20/24 10:27 -- -- BUN 13 https://[employer]/RefferedAgent.com/Ask.com/reports/mp_unified_driver?pa rameters=^MINE^,2696 4066.0,400562073.0,52281174.0,953521698.0,1121.0,%22MP_REACH%22,%22../../reso urces/UnifiedContent%22,%22mp_reach_v5%22,9# 05/20/24 10:27 -- -- Creatinine-Blood 0.63 https://[employer]/RefferedAgent.com/Ask.com/reports/mp_unified_driver?pa rameters=^MINE^,26 269625.0,048953040.0,74586716.0,144575956.0,1121.0,%22MP_REACH%22,%22../../re sources/UnifiedContent%22,%22mp_reach_v5%22,9# 05/20/24 10:27 -- -- Estimated GFR Creatinine *111 https://[employer]/RefferedAgent.com/Ask.com/reports/Planitax_SplashMaps_driver?pa rameters=^MINE^,26 001921.0,617485190.0,55540665.0,143094719.0,1121.0,%22MP_REACH%22,%22../../re sources/UnifiedContent%22,%22mp_reach_v5%22,9# 05/20/24 10:27 -- -- Calcium 9.2 https://[employer]/RefferedAgent.com/Ask.com/reports/mp_SplashMaps_driver?pa rameters=^MINE^,269 55345.0,827235176.0,04476662.0,550089126.0,1121.0,%22MP_REACH%22,%22../../res ources/UnifiedContent%22,%22mp_reach_v5%22,9# 05/20/24 10:27 -- -- Protein, Total 8.0 https://[employer]/RefferedAgent.com/Ask.com/reports/Planitax_SplashMaps_driver?pa rameters=^MINE^,269 17962.0,288303798.0,88546932.0,062654216.0,1121.0,%22MP_REACH%22,%22../../res ources/UnifiedContent%22,%22mp_reach_v5%22,9# 05/20/24 10:27 -- -- Albumin 4.4 https://[employer]/RefferedAgent.com/Ask.com/reports/Planitax_SplashMaps_driver?pa rameters=^MINE^,269 94967.0,590619832.0,27773174.0,800974247.0,1121.0,%22MP_REACH%22,%22../../res ources/UnifiedContent%22,%22mp_reach_v5%22,9# 05/20/24 10:27 -- -- AG Ratio 1.2 https://[employer]/RefferedAgent.com/Ask.com/reports/Planitax_SplashMaps_driver?pa rameters=^MINE^,269 95718.0,597136755.0,57435994.0,725175379.0,1121.0,%22MP_REACH%22,%22../../res ources/UnifiedContent%22,%22mp_reach_v5%22,9# 05/20/24 10:27 -- -- Alkaline Phosphatase 102 https://[employer]/RefferedAgent.com/Ask.com/reports/mp_SplashMaps_driver?pa rameters=^MINE^,269 26039.0,386374228.0,73265977.0,811100408.0,1121.0,%22MP_REACH%22,%22../../res ources/UnifiedContent%22,%22mp_reach_v5%22,9# 05/20/24 10:27 -- -- Lipase, Serum/Plasma 16 https://[employer]/RefferedAgent.com/Ask.com/reports/Planitax_SplashMaps_driver?pa rameters=^MINE^,2696 4066.0,280701456.0,14505117.0,654542643.0,1121.0,%22MP_REACH%22,%22../../reso urces/UnifiedContent%22,%22mp_reach_v5%22,9# 05/20/24 10:27 -- -- AST (SGOT) 16 https://[employer]/RefferedAgent.com/Ask.com/reports/mp_unified_driver?pa rameters=^MINE^,2696 4066.0,438759327.0,02725042.0,397073243.0,1121.0,%22MP_REACH%22,%22../../reso urces/UnifiedContent%22,%22mp_reach_v5%22,9# 05/20/24 10:27 -- -- ALT (SGPT) 15 https://[employer]/RefferedAgent.com/Ask.com/reports/Planitax_SplashMaps_driver?pa rameters=^MINE^,2696 4066.0,993653772.0,60623293.0,491274055.0,1121.0,%22MP_REACH%22,%22../../reso urces/UnifiedContent%22,%22mp_reach_v5%22,9# 05/20/24 10:27 -- -- Bilirubin, Total 0.9 https://[employer]/RefferedAgent.com/Ask.com/reports/mp_SplashMaps_driver?pa rameters=^MINE^,269 86896.0,420106419.0,71851500.0,065434366.0,1121.0,%22MP_REACH%22,%22../../res ources/UnifiedContent%22,%22mp_reach_v5%22,9# 05/20/24 10:27 -- -- Lactate 0.9 https://[employer]/RefferedAgent.com/Ask.com/reports/mp_SplashMaps_driver?pa rameters=^MINE^,269 76070.0,358793252.0,53114678.0,381652795.0,1121.0,%22MP_REACH%22,%22../../res ources/UnifiedContent%22,%22mp_reach_v5%22,9# 05/20/24 10:27 -- -- -URINE STUDIES (19) Appear/Color, Urine YELLOW https://[employer]/RefferedAgent.com/Ask.com/reports/mp_unified_driver?pa rameters=^MINE^, 29766564.0,337178172.0,10588141.0,624335492.0,1121.0,%22MP_REACH%22,%22../../ resources/UnifiedContent%22,%22mp_reach_v5%22,9# 05/20/24 10:26 -- -- Clarity ?SL.CLOUDY https://[employer]/RefferedAgent.com/Ask.com/reports/Planitax_SplashMaps_driver?pa rameters=^MIN E^,61823361.0,589605862.0,46358751.0,720213462.0,1121.0,%22MP_REACH%22,%22../ ../resources/UnifiedContent%22,%22mp_reach_v5%22,9# 05/20/24 10:26 -- -- Specific [place], Urine 1.020 https://[employer]/RefferedAgent.com/Ask.com/reports/Planitax_SplashMaps_driver?pa rameters=^MINE^,2 9968774.0,931731397.0,94640813.0,499927343.0,1121.0,%22MP_REACH%22,%22../../r esources/UnifiedContent%22,%22mp_reach_v5%22,9# 05/20/24 10:26 -- -- pH, Urine 6.5 https://[employer]/RefferedAgent.com/Ask.com/reports/Planitax_SplashMaps_driver?pa rameters=^MINE^,269 15127.0,553919652.0,31823579.0,121249391.0,1121.0,%22MP_REACH%22,%22../../res ources/UnifiedContent%22,%22mp_reach_v5%22,9# 05/20/24 10:26 -- -- Albumin, Urine ?TRACE https://[employer]/RefferedAgent.com/Ask.com/reports/Planitax_SplashMaps_driver?pa rameters=^MINE^,2 4655248.0,885289132.0,64820832.0,402476488.0,1121.0,%22MP_REACH%22,%22../../r esources/UnifiedContent%22,%22mp_reach_v5%22,9# 05/20/24 10:26 -- -- Glucose, Urine NEGATIVE https://[employer]/RefferedAgent.com/Ask.com/reports/Planitax_unified_driver?pa rameters=^MINE ^,69133453.0,286945634.0,70543440.0,232497437.0,1121.0,%22MP_REACH%22,%22../. ./resources/UnifiedContent%22,%22mp_reach_v5%22,9# 05/20/24 10:26 -- -- Ketones, Urine ?TRACE https://[employer]/RefferedAgent.com/Ask.com/reports/Planitax_SplashMaps_driver?pa rameters=^MINE^,2 0451859.0,238083861.0,58205167.0,010009994.0,1121.0,%22MP_REACH%22,%22../../r esources/UnifiedContent%22,%22mp_reach_v5%22,9# 05/20/24 10:26 -- -- Bilirubin, Urine NEGATIVE https://[employer]/RefferedAgent.com/Ask.com/reports/Planitax_SplashMaps_driver?pa rameters=^MINE ^,58873591.0,814770798.0,66448842.0,400299434.0,1121.0,%22MP_REACH%22,%22../. ./resources/UnifiedContent%22,%22mp_reach_v5%22,9# 05/20/24 10:26 -- -- Hemoglobin, Urine ?1+ https://[employer]/RefferedAgent.com/Ask.com/reports/Planitax_SplashMaps_driver?pa rameters=^MINE^,2696 4066.0,074173447.0,86283433.0,137378934.0,1121.0,%22MP_REACH%22,%22../../reso urces/UnifiedContent%22,%22mp_reach_v5%22,9# 05/20/24 10:26 -- -- Nitrite, Urine NEGATIVE https://[employer]/RefferedAgent.com/Ask.com/reports/Planitax_unified_driver?pa rameters=^MINE ^,10892121.0,496076411.0,34306287.0,237112444.0,1121.0,%22MP_REACH%22,%22../. ./resources/UnifiedContent%22,%22mp_reach_v5%22,9# 05/20/24 10:26 -- -- Leukocyte, Urine NEGATIVE https://[employer]/RefferedAgent.com/Ask.com/reports/mp_SplashMaps_driver?pa rameters=^MINE ^,44843355.0,264222572.0,29755352.0,907930820.0,1121.0,%22MP_REACH%22,%22../. ./resources/UnifiedContent%22,%22mp_reach_v5%22,9# 05/20/24 10:26 -- -- Urobilinogen NORMAL https://[employer]/RefferedAgent.com/Ask.com/reports/mp_SplashMaps_driver?pa rameters=^MINE^, 46068792.0,343253936.0,82041019.0,746534297.0,1121.0,%22MP_REACH%22,%22../../ resources/UnifiedContent%22,%22mp_reach_v5%22,9# 05/20/24 10:26 -- -- WBC's, Urine 1 https://[employer]/RefferedAgent.com/Ask.com/reports/mp_unified_driver?pa rameters=^MINE^,38353 066.0,478397075.0,22335964.0,503883819.0,1121.0,%22MP_REACH%22,%22../../resou rces/UnifiedContent%22,%22mp_reach_v5%22,9# 05/20/24 10:26 -- -- RBC's, Urine ?4 https://[email or web address]/reports/mp_SplashMaps_driver?pa rameters=^MINE^,14475 066.0,419504916.0,39415830.0,383875494.0,1121.0,%22MP_REACH%22,%22../../resou gwyn/UnifiedContent%22,%22mp_reach_v5%22,9# 05/20/24 10:26 -- -- Bacteria ?SLIGHT https://[email or web address]/reports/mp_unified_driver?pa rameters=^MINE^, [id number],591923565.0,62531991.0,819385985.0,1121.0,%22MP_REACH%22,%22../../ resources/UnifiedContent%22,%22mp_reach_v5%22,9# 05/20/24 10:26 -- -- Squamous Epith ?21 https://[email or web address]/reports/mp_unified_driver?pa rameters=^MINE^,2696 4066.0,404649847.0,52400988.0,700406625.0,1121.0,%22MP_REACH%22,%22../../carlitos lewis/UnifiedContent%22,%22mp_reach_v5%22,9# 05/20/24 10:26 -- -- Mucus SLIGHT https://[email or web address]/reports/mp_unified_driver?pa rameters=^MINE^, 62454961.0,471347396.0,74962956.0,665740288.0,1121.0,%22MP_REACH%22,%22../../ resources/UnifiedContent%22,%22mp_reach_v5%22,9# 05/20/24 10:26 -- -- Hold Urine Culture Testing available 48 hours from time of collection. https://[email or web address]/reports/mp_SplashMaps_driver?pa rameters=^M INE^,85619602.0,331404866.0,46205792.0,205617333.0,1121.0,%22MP_REACH%22,%22. ./../resources/UnifiedContent%22,%22mp_reach_v5%22,9# 05/20/24 10:26 -- -- Est Creatinine Clearance *106.15 https://[email or web address]/reports/mp_unified_driver?berny ramírez=^MINE^,2 1042328.0,939395316.0,61976983.0,222354215.0,1121.0,%22MP_REACH%22,%22../../r esources/UnifiedContent%22,%22mp_reach_v5%22,9# 05/20/24 11:03 [employer] #[id number] PT HAS BEEN LOST TO FOLLOW UP SINCE 2020 She was seen at the [facility] ER for N/V/D. 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 SO her carafate therapy lapsed. She has had nausea from most OTC CIC medications, that is why I had tried to progress to Linzess in the past. I will go back to this. Educated about chronic need for sucralfate r/t t he H pylori. She lsot about 70# from M[place]ro which she tolerated well but insurance did not cover. This was quite a long appointment because I had educate her about her chronic H pylori infection again and the need for continued follow-up. I also needed to research her ER visit to [facility] which was not readily available. ROV 4 weeks. [facility] Medical History (Updated 09/06/24 @ 11:42 by JUSTIN Funk) Tracheobronchitis Right knee pain Physical exam Skin lesion Hypertension Left foot pain Chronic cough Right elbow pain Morbid obesity Generalized anxiety disorder Asthma Hypovitaminosis D Mild recurrent major depression Pleuritic chest pain COVID-19 Breast pain, left Sinusitis Low back pain Polyarthralgia Ophthalmoplegic migraine Menieres disease Frequent falls RBBB (right bundle branch block) Leg edema Breast mass, right Left elbow pain Fibromyalgia Ankle pain, right Labial lesion Rectal bleeding H. pylori duodenitis Submandibular lymphadenopathy Chronic neck pain AIRAM (obstructive sleep apnea) Panic attacks Surgical History History of endoscopy History of colonoscopy History of cholecystectomy History of hysterectomy History of tubal ligation History of section History of carpal tunnel surgery of right wrist Family History Father Oral cancer Thyroid cancer Colon cancer Mother NIDDY (non-insulin dependent diabetes mellitus in young) Gastric ulcer Paternal Grandfather Colon cancer Paternal Uncle Colon cancer Other Family history of colon cancer in father Social History Housing: House Are you a primary nursing care attendant to a significant other at home: No Alcohol intake: never Patient Tobacco Use Status: Never used Tobacco e-Cigarette/Vaping Use: Never Used Second Hand Smoke Exposure: No service: No Current occupational status: unemployed Sexual orientation: Straight/Heterosexual Gender identity: Female Cognitive needs: No Hearing needs: No Vision needs: Yes Review of Systems Const Denies fatigue, Denies fever(s), Denies night sweats, Denies poor appetite and Denies weight loss ENT Reports Normal hearing present, Denies dysphagia, Denies odynophagia, Denies throat swelling and Denies tongue swelling Card Reports no additional complaints Resp Reports no additional complaints GI Details: Reports abdominal pain, Denies melena, Denies bloating, Denies hematochezia, Reports constipation, Denies GI cramping, Denies dysphagia, Denies excessive flatus, Denies early satiety, Reports dyspepsia, Reports heartburn, Denies diarrhea, Denies nausea, Denies odynophagia, Reports vomiting and Denies hematemesis Skin/Breast Denies pruritus, Denies lesions, Denies rash and Denies jaundice Neuro Reports Normal hearing present and Denies Abnormal speech present Psych Reports anxiety and Reports depression Endo Denies fatigue Aller/Immun Denies throat swelling and Denies tongue swelling Physical Exam Vital Signs: Last Vital Signs Pulse 82 09/06/24 11:26 BP 112/64 09/06/24 11:26 Pulse Ox 99 09/06/24 11:26 Oxygen Delivery Method Room Air 09/06/24 11:26 BMI result Body Mass Index 38.3 Const General: cooperative, no acute distress, well developed and well groomed Nutritional Appearance: well nourished and obese Orientation/consciousness: oriented to person, oriented to place and oriented to time Limitations: language barrier HEENT Head: Yes normocephalic and Yes atraumatic Eyes General: appearance normal, both eyes and all related structures Pupils: Equal, round and reactive pupils present Neck Neck: Yes normal visual inspection and Yes no lymphadenopathy Thyroid: Thyroid normal Resp Effort & Inspection: normal respiratory effort and able to speak in complete sentences Auscultation: clear to auscultation bilaterally Cardio Rate: regular rate Rhythm: regular rhythm Heart sounds: Normal, physiologic split S2 sound present Peripheral pulses: radial pulses present and posterior tibial pulses present GI Inspection: No distended, Yes Abdominal panniculus present, Yes obesity and Yes scar Palpation (GI): Soft to palpation, nontender, no guarding, not rigid and No hepatosplenomegaly present Percussion: Yes normal to percussion Auscultation: normal bowel sounds Rectal Exam - Female: deferred Abdomen image: 2 1. surgical scar Skin General skin exam: no rashes or lesions noted, turgor normal, skin not dry, no jaundice, No spider nevi and no striae Rashes: no rashes Nails: normal Neuro General: oriented to person, oriented to place and oriented to time Cranial nerves: Yes Equal, round and reactive pupils present and Yes Normal hearing present Speech: No Abnormal speech present Extrem General: Yes normal to inspection, No clubbing, No cyanosis and No edema Psych Appearance: grossly normal and well kempt Mental Status: mental status grossly normal Speech and movement: Normal speech and movement present Affect: normal affect Attitude: cooperative Thought process: Normal thought process present and not confabulating Thought content: Normal thought content present Insight: Limited insight present (Psych) Judgement: Limited judgement present (Psych) Results Reviewed Results Reviewed: CT OF ABD AND PELVIS [facility] 05/2024 FINDINGS: Paediatric Physiotherapist View Findings, Lines and Tubes: None. Visualized Chest: Minimal left basilar atelectasis. Trace pericardial fluid. Diaphragm: Tiny hiatal hernia. Liver: There is diffuse hepatic steatosis. Focal area of low attenuation anteriorly in segment 4 is geographic on coronal reconstruction and is likely an area of more focal fatty infiltration. Gallbladder: Absent consistent with prior cholecystectomy. Bile ducts: No biliary ductal dilation. Spleen: Normal. Pancreas: No peripancreatic stranding or fluid. Adrenal glands: No mass or thickening. Kidneys and ureters: No solid renal mass. No hydroureteronephrosis. No nephrolithiasis. Bladder: Nondistended urinary bladder. Reproductive organs: Post surgical changes. Stomach, small bowel, and large bowel: No bowel obstruction. No evidence of acute inflammation. Enteric contrast is present in the small bowel loops. The distal colon is nondistended. Appendix: No evidence for appendicitis. Peritoneum and retroperitoneum: Very trace free fluid in the pelvis which can be physiologic. No omental or mesenteric lesions. Lymph nodes: No enlarged lymph nodes. Blood vessels: Normal. No aneurysm. No evidence of venous thrombosis. Abdominal and pelvic wall: No acute abnormality. Small fat-containing umbilical hernia. Bones: No acute abnormality. IMPRESSION: No acute abnormality on CT of the abdomen and pelvis. Hepatic steatosis. WBC 10.4 https://[employer]/RefferedAgent.com/Ask.com/reports/mp_unified_driver?pa rameters=^MINE^,26 461800.0,351952301.0,91719990.0,267257815.0,1121.0,%22MP_REACH%22,%22../../re sources/UnifiedContent%22,%22mp_reach_v5%22,9# 05/20/24 10:27 -- -- RBC 4.86 https://[employer]/RefferedAgent.com/Ask.com/reports/mp_unified_driver?pa rameters=^MINE^,26 190434.0,481061006.0,56487387.0,899147145.0,1121.0,%22MP_REACH%22,%22../../re sources/UnifiedContent%22,%22mp_reach_v5%22,9# 05/20/24 10:27 -- -- Hgb 15.1 https://[employer]/RefferedAgent.com/Ask.com/reports/mp_unified_driver?pa rameters=^MINE^,26 218483.0,288687337.0,04426450.0,449986313.0,1121.0,%22MP_REACH%22,%22../../re sources/UnifiedContent%22,%22mp_reach_v5%22,9# 05/20/24 10:27 -- -- Hct 42.3 https://[employer]/RefferedAgent.com/Ask.com/reports/mp_unified_driver?pa rameters=^MINE^,26 905963.0,591021846.0,07445458.0,198702616.0,1121.0,%22MP_REACH%22,%22../../re sources/UnifiedContent%22,%22mp_reach_v5%22,9# 05/20/24 10:27 -- -- MCV 87.0 https://[employer]/Reffered[employer].com/Ask.com/reports/mp_unified_driver?pa rameters=^MINE^,26 909568.0,498356702.0,08873723.0,251453883.0,1121.0,%22MP_REACH%22,%22../../re sources/UnifiedContent%22,%22mp_reach_v5%22,9# 05/20/24 10:27 -- -- MCH 31.1 https://[employer]/RefferedAgent.com/Ask.com/reports/mp_unified_driver?pa rameters=^MINE^,26 816639.0,363913450.0,30277991.0,137582431.0,1121.0,%22MP_REACH%22,%22../../re sources/UnifiedContent%22,%22mp_reach_v5%22,9# 05/20/24 10:27 -- -- MCHC 35.7 https://[employer]Agent.com/Ask.com/reports/mp_unified_driver?pa rameters=^MINE^,26 464136.0,604654997.0,72540157.0,942533909.0,1121.0,%22MP_REACH%22,%22../../re sources/UnifiedContent%22,%22mp_reach_v5%22,9# 05/20/24 10:27 -- -- Platelet Count 345 https://[employer]/RefferedAgent.com/Ask.com/reports/mp_unified_driver?pa rameters=^MINE^,269 66948.0,331054607.0,30427756.0,858186542.0,1121.0,%22MP_REACH%22,%22../../res ources/UnifiedContent%22,%22mp_reach_v5%22,9# 05/20/24 10:27 -- -- RDW-SD 39.5 https://[employer].com/Ask.com/reports/mp_unified_driver?pa rameters=^MINE^,26 648089.0,397368242.0,93161645.0,360566586.0,1121.0,%22MP_REACH%22,%22../../re sources/UnifiedContent%22,%22mp_reach_v5%22,9# 05/20/24 10:27 -- -- MPV ?9.0 https://[employer].com/Ask.com/reports/mp_unified_driver?pa rameters=^MINE^,269 45809.0,915897785.0,32512778.0,967996818.0,1121.0,%22MP_REACH%22,%22../../res ources/UnifiedContent%22,%22mp_reach_v5%22,9# 05/20/24 10:27 -- -- Nucleated RBC (Automated) 0.0 https://[employer].com/Ask.com/reports/mp_unified_driver?pa rameters=^MINE^,269 98324.0,605876246.0,19166223.0,273076693.0,1121.0,%22MP_REACH%22,%22../../res ources/UnifiedContent%22,%22mp_reach_v5%22,9# 05/20/24 10:27 -- -- Abs. NRBC 0.0 https://[employer].com/Ask.com/reports/mp_unified_driver?pa rameters=^MINE^,269 86808.0,257896809.0,14902362.0,833038102.0,1121.0,%22MP_REACH%22,%22../../res ources/UnifiedContent%22,%22mp_reach_v5%22,9# 05/20/24 10:27 -- -- Abs. Neut ?9.1 https://[employer].com/Ask.com/reports/mp_unified_driver?pa rameters=^MINE^,269 27260.0,136952339.0,66788127.0,924791153.0,1121.0,%22MP_REACH%22,%22../../res ources/UnifiedContent%22,%22mp_reach_v5%22,9# 05/20/24 10:27 -- -- Abs. Lymph 0.8 https://[employer].com/Ask.com/reports/mp_unified_driver?pa rameters=^MINE^,269 30047.0,448966599.0,81221711.0,076050351.0,1121.0,%22MP_REACH%22,%22../../res ources/UnifiedContent%22,%22mp_reach_v5%22,9# 05/20/24 10:27 -- -- Abs. Divide ?0.3 https://[employer].com/Ask.com/reports/mp_unified_driver?pa rameters=^MINE^,269 37777.0,267679184.0,88076260.0,189884866.0,1121.0,%22MP_REACH%22,%22../../res ources/UnifiedContent%22,%22mp_reach_v5%22,9# 05/20/24 10:27 -- -- Abs. Eo 0.0 https://[employer].com/Ask.com/reports/mp_unified_driver?pa rameters=^MINE^,269 46437.0,556755171.0,85846439.0,932818538.0,1121.0,%22MP_REACH%22,%22../../res ources/UnifiedContent%22,%22mp_reach_v5%22,9# 05/20/24 10:27 -- -- Abs. Baso 0.0 https://[employer].com/Ask.com/reports/mp_unified_driver?pa rameters=^MINE^,269 72446.0,212002209.0,78624344.0,186308415.0,1121.0,%22MP_REACH%22,%22../../res ources/UnifiedContent%22,%22mp_reach_v5%22,9# 05/20/24 10:27 -- -- Neut % ?87.9 https://[employer].com/Ask.com/reports/mp_unified_driver?pa rameters=^MINE^,26 635537.0,163467320.0,23084925.0,753291604.0,1121.0,%22MP_REACH%22,%22../../re sources/UnifiedContent%22,%22mp_reach_v5%22,9# 05/20/24 10:27 -- -- Lymph % ?8.0 https://[employer]/RefferedAgent.com/Ask.com/reports/Planitax_unified_driver?pa rameters=^MINE^,269 01788.0,822416615.0,31387011.0,334453751.0,1121.0,%22MP_REACH%22,%22../../res ources/UnifiedContent%22,%22mp_reach_v5%22,9# 05/20/24 10:27 -- -- Divide % ?3.1 https://[employer]/RefferedAgent.com/Ask.com/reports/Planitax_Spl[employer]Maps_driver?pa rameters=^MINE^,269 51569.0,123467397.0,45786891.0,633616428.0,1121.0,%22MP_REACH%22,%22../../res ources/UnifiedContent%22,%22mp_reach_v5%22,9# 05/20/24 10:27 -- -- Eos % 0.4 https://[employer]/RefferedAgent.com/Ask.com/reports/Planitax_Spl[employer]_driver?pa rameters=^MINE^,269 10508.0,537862804.0,90809756.0,242435181.0,1121.0,%22MP_REACH%22,%22../../res ources/UnifiedContent%22,%22mp_reach_v5%22,9# 05/20/24 10:27 -- -- Baso % 0.1 https://[employer]/RefferedAgent.com/Ask.com/reports/Planitax_Spl[employer]Maps_driver?pa rameters=^MINE^,269 38761.0,697935021.0,09853183.0,859268718.0,1121.0,%22MP_REACH%22,%22../../res ources/UnifiedContent%22,%22mp_reach_v5%22,9# 05/20/24 10:27 -- -- Imm Gran 0.5 https://[employer]/RefferedAgent.com/Ask.com/reports/Planitax_Spl[employer]_driver?pa rameters=^MINE^,269 05368.0,222589254.0,56481633.0,054717523.0,1121.0,%22MP_REACH%22,%22../../res ources/UnifiedContent%22,%22mp_reach_v5%22,9# 05/20/24 10:27 -- -- Abs. Imm Gran 0.1 https://[employer]/RefferedAgent.com/Ask.com/reports/mp_SplashMaps_driver?pa rameters=^MINE^,269 07175.0,663722354.0,79116359.0,007844844.0,1121.0,%22MP_REACH%22,%22../../res ources/UnifiedContent%22,%22mp_reach_v5%22,9# 05/20/24 10:27 -- -- Hold Blue Top SPECIMEN DISCARDED AFTER 4 HOURS. https://[employer]/RefferedAgent.com/Ask.com/reports/Planitax_SplashMaps_driver?pa rameters=^MINE^, 64899973.0,083670421.0,09126192.0,595833454.0,1121.0,%22MP_REACH%22,%22../../ resources/UnifiedContent%22,%22mp_reach_v5%22,9# 05/20/24 10:27 -- -- -CHEMISTRY (19) Sodium 138 https://[employer]/RefferedAgent.com/Ask.com/reports/Planitax_SplashMaps_driver?pa rameters=^MINE^,269 77317.0,758495231.0,08479241.0,938654353.0,1121.0,%22MP_REACH%22,%22../../res Secloreces/UnifiedContent%22,%22mp_reach_v5%22,9# 05/20/24 10:27 -- -- Potassium 3.8 https://[employer]/RefferedAgent.com/Ask.com/reports/mp_unified_driver?pa rameters=^MINE^,269 63506.0,107929865.0,81985996.0,161834115.0,1121.0,%22MP_REACH%22,%22../../res ources/UnifiedContent%22,%22mp_reach_v5%22,9# 05/20/24 10:27 -- -- Chloride 103 https://[employer]/RefferedAgent.com/Ask.com/reports/mp_unified_driver?pa rameters=^MINE^,269 13359.0,623199478.0,63865600.0,201275300.0,1121.0,%22MP_REACH%22,%22../../res ources/UnifiedContent%22,%22mp_reach_v5%22,9# 05/20/24 10:27 -- -- Bicarbonate Level 24 https://[employer]/RefferedAgent.com/Ask.com/reports/mp_SplashMaps_driver?pa rameters=^MINE^,2696 4066.0,159567618.0,48117236.0,343569155.0,1121.0,%22MP_REACH%22,%22../../reso urces/UnifiedContent%22,%22mp_reach_v5%22,9# 05/20/24 10:27 -- -- Anion Gap 11 https://[employer]feredAgent.com/Ask.com/reports/mp_unified_driver?pa rameters=^MINE^,2696 4066.0,939850299.0,59825132.0,508234290.0,1121.0,%22MP_REACH%22,%22../../reso urces/UnifiedContent%22,%22mp_reach_v5%22,9# 05/20/24 10:27 -- -- Glucose Level ?101 https://[employer]fered[employer].com/Ask.com/reports/Planitax_unified_driver?pa rameters=^MINE^,269 01496.0,202355369.0,92344265.0,903805965.0,1121.0,%22MP_REACH%22,%22../../res ources/UnifiedContent%22,%22mp_reach_v5%22,9# 05/20/24 10:27 -- -- BUN 13 https://[employer]/RefferedAgent.com/Ask.com/reports/Planitax_unified_driver?pa rameters=^MINE^,2696 4066.0,263512210.0,84640152.0,420499602.0,1121.0,%22MP_REACH%22,%22../../reso urces/UnifiedContent%22,%22mp_reach_v5%22,9# 05/20/24 10:27 -- -- Creatinine-Blood 0.63 https://[employer]/RefferedAgent.com/Ask.com/reports/Planitax_[employer]_driver?pa rameters=^MINE^,26 595171.0,578827886.0,19729962.0,042344982.0,1121.0,%22MP_REACH%22,%22../../re sources/UnifiedContent%22,%22mp_reach_v5%22,9# 05/20/24 10:27 -- -- Estimated GFR Creatinine *111 https://[employer]/RefferedAgent.com/Ask.com/reports/Planitax_unified_driver?pa rameters=^MINE^,26 541509.0,764086991.0,08468640.0,925427454.0,1121.0,%22MP_REACH%22,%22../../re sources/UnifiedContent%22,%22mp_reach_v5%22,9# 05/20/24 10:27 -- -- Calcium 9.2 https://[employer]/RefferedAgent.com/Ask.com/reports/[employer]?pa rameters=^MINE^,269 99744.0,416956260.0,03709606.0,654802848.0,1121.0,%22MP_REACH%22,%22../../res ources/UnifiedContent%22,%22mp_reach_v5%22,9# 05/20/24 10:27 -- -- Protein, Total 8.0 https://[employer]/RefferedAgent.com/Ask.com/reports/Planitax_[employer]?pa rameters=^MINE^,269 70977.0,937566266.0,73006440.0,853538845.0,1121.0,%22MP_REACH%22,%22../../res Cyvera/UnifiedContent%22,%22mp_reach_v5%22,9# 05/20/24 10:27 -- -- Albumin 4.4 https://[employer]/RefferedAgent.com/Ask.com/reports/WP F[employer]-Safe_driver?pa rameters=^MINE^,269 96110.0,754390178.0,87121082.0,248112505.0,1121.0,%22MP_REACH%22,%22../../res Cyvera/UnifiedContent%22,%22mp_reach_v5%22,9# 05/20/24 10:27 -- -- AG Ratio 1.2 https://[employer]/RefferedAgent.com/Ask.com/reports/Planitax_[employer]_driver?pa rameters=^MINE^,269 25533.0,681374075.0,94110205.0,861238036.0,1121.0,%22MP_REACH%22,%22../../res Cyvera/UnifiedContent%22,%22mp_reach_v5%22,9# 05/20/24 10:27 -- -- Alkaline Phosphatase 102 https://[employer]/RefferedAgent.com/Ask.com/reports/WP Fail-Safe_driver?pa rameters=^MINE^,269 94467.0,724099021.0,40464680.0,898035518.0,1121.0,%22MP_REACH%22,%22../../res ources/UnifiedContent%22,%22mp_reach_v5%22,9# 05/20/24 10:27 -- -- Lipase, Serum/Plasma 16 https://[employer]feredAgent.com/Ask.com/reports/Planitax_[employer]_driver?pa rameters=^MINE^,2696 4066.0,018627005.0,29080459.0,709073727.0,1121.0,%22MP_REACH%22,%22../../reso urces/UnifiedContent%22,%22mp_reach_v5%22,9# 05/20/24 10:27 -- -- AST (SGOT) 16 https://[employer].com/Ask.com/reports/Planitax_[employer]_driver?pa rameters=^MINE^,2696 4066.0,920306847.0,83951825.0,806663418.0,1121.0,%22MP_REACH%22,%22../../reso urces/UnifiedContent%22,%22mp_reach_v5%22,9# 05/20/24 10:27 -- -- ALT (SGPT) 15 https://[employer].com/Ask.com/reports/Planitax_[employer]_driver?pa rameters=^MINE^,2696 4066.0,072948568.0,29974071.0,990875273.0,1121.0,%22MP_REACH%22,%22../../reso urces/UnifiedContent%22,%22mp_reach_v5%22,9# 05/20/24 10:27 -- -- Bilirubin, Total 0.9 https://[employer].com/Ask.com/reports/Planitax_[employer]_driver?pa rameters=^MINE^,269 01888.0,877810480.0,87429409.0,842507131.0,1121.0,%22MP_REACH%22,%22../../res ources/UnifiedContent%22,%22mp_reach_v5%22,9# 05/20/24 10:27 -- -- Lactate 0.9 https://[employer].com/Ask.com/reports/Planitax_[employer]_driver?pa rameters=^MINE^,269 27989.0,523044299.0,42937569.0,260192361.0,1121.0,%22MP_REACH%22,%22../../res ourNeuroVigil/UnifiedContent%22,%22mp_reach_v5%22,9# 05/20/24 10:27 -- -- -URINE STUDIES (19) Appear/Color, Urine YELLOW https://[employer].com/Ask.com/reports/Planitax_[employer]_driver?pa rameters=^MINE^, 43249130.0,905133775.0,64803223.0,946281738.0,1121.0,%22MP_REACH%22,%22../../ resources/UnifiedContent%22,%22mp_reach_v5%22,9# 05/20/24 10:26 -- -- Clarity ?SL.CLOUDY https://[employer]/RefferedAgent.com/Ask.com/reports/Planitax_[employer]_driver?pa rameters=^MIN E^,82397210.0,384810210.0,80451017.0,030939245.0,1121.0,%22MP_REACH%22,%22../ ../resources/UnifiedContent%22,%22mp_reach_v5%22,9# 05/20/24 10:26 -- -- Specific [place], Urine 1.020 https://[employer]/RefferedAgent.com/Ask.com/reports/Planitax_[employer]_driver?pa rameters=^MINE^,2 3616164.0,304691388.0,64985089.0,237414783.0,1121.0,%22MP_REACH%22,%22../../r esources/UnifiedContent%22,%22mp_reach_v5%22,9# 05/20/24 10:26 -- -- pH, Urine 6.5 https://[employer].com/Ask.com/reports/mp_unified_driver?pa rameters=^MINE^,269 34740.0,726307352.0,11053644.0,825404274.0,1121.0,%22MP_REACH%22,%22../../res ources/UnifiedContent%22,%22mp_reach_v5%22,9# 05/20/24 10:26 -- -- Albumin, Urine ?TRACE https://[employer]/RefferedAgent.com/Ask.com/reports/mp_SplashMaps_driver?pa rameters=^MINE^,2 3819150.0,182139776.0,36789768.0,263739444.0,1121.0,%22MP_REACH%22,%22../../r esources/UnifiedContent%22,%22mp_reach_v5%22,9# 05/20/24 10:26 -- -- Glucose, Urine NEGATIVE https://[employer].com/Ask.com/reports/mp_unified_driver?pa rameters=^MINE ^,15343548.0,653112589.0,61975042.0,332429590.0,1121.0,%22MP_REACH%22,%22../. ./resources/UnifiedContent%22,%22mp_reach_v5%22,9# 05/20/24 10:26 -- -- Ketones, Urine ?TRACE https://[employer].com/Ask.com/reports/Planitax_[employer]_driver?pa rameters=^MINE^,2 8488916.0,833761158.0,38710238.0,119660684.0,1121.0,%22MP_REACH%22,%22../../r esources/UnifiedContent%22,%22mp_reach_v5%22,9# 05/20/24 10:26 -- -- Bilirubin, Urine NEGATIVE https://[employer].com/Ask.com/reports/Planitax_[employer]_driver?pa rameters=^MINE ^,77611504.0,618634062.0,78080172.0,427578639.0,1121.0,%22MP_REACH%22,%22../. ./resources/UnifiedContent%22,%22mp_reach_v5%22,9# 05/20/24 10:26 -- -- Hemoglobin, Urine ?1+ https://[employer].com/Ask.com/reports/Planitax_[employer]_driver?pa rameters=^MINE^,2696 4066.0,973717697.0,55682151.0,484929795.0,1121.0,%22MP_REACH%22,%22../../reso urces/UnifiedContent%22,%22mp_reach_v5%22,9# 05/20/24 10:26 -- -- Nitrite, Urine NEGATIVE https://[employer].com/Ask.com/reports/Planitax_[employer]_driver?pa rameters=^MINE ^,09916124.0,138899827.0,49309022.0,638146620.0,1121.0,%22MP_REACH%22,%22../. ./resources/UnifiedContent%22,%22mp_reach_v5%22,9# 05/20/24 10:26 -- -- Leukocyte, Urine NEGATIVE https://[employer].com/Ask.com/reports/Planitax_[employer]_driver?pa rameters=^MINE ^,43387978.0,378312598.0,25397108.0,986400999.0,1121.0,%22MP_REACH%22,%22../. ./resources/UnifiedContent%22,%22mp_reach_v5%22,9# 05/20/24 10:26 -- -- Urobilinogen NORMAL https://[employer].com/Ask.com/reports/Planitax_unified_driver?pa rameters=^MINE^, 95905962.0,830128908.0,16954045.0,487420176.0,1121.0,%22MP_REACH%22,%22../../ resources/UnifiedContent%22,%22mp_reach_v5%22,9# 05/20/24 10:26 -- -- WBC's, Urine 1 https://[employer].com/Ask.com/reports/Planitax_[employer]_driver?pa rameters=^MINE^,75678 066.0,901983472.0,43203026.0,055502876.0,1121.0,%22MP_REACH%22,%22../../resou rces/UnifiedContent%22,%22mp_reach_v5%22,9# 05/20/24 10:26 -- -- RBC's, Urine ?4 https://[employer].com/Ask.com/reports/mp_unified_driver?pa rameters=^MINE^,14190 066.0,711534097.0,98515027.0,001867986.0,1121.0,%22MP_REACH%22,%22../../resou rces/UnifiedContent%22,%22mp_reach_v5%22,9# 05/20/24 10:26 -- -- Bacteria ?SLIGHT https://[employer].com/Ask.com/reports/mp_SplashMaps_driver?pa rameters=^MINE^, [id number],[id number],71629188.0,189040895.0,1121.0,%22MP_REACH%22,%22../../ resources/UnifiedContent%22,%22mp_reach_v5%22,9# 05/20/24 10:26 -- -- Squamous Epith ?21 https://[email or web address]/reports/Planitax_unified_driver?pa rameters=^MINE^,2696 4066.0,046709739.0,64544492.0,937562999.0,1121.0,%22MP_REACH%22,%22../../reso silviaces/UnifiedContent%22,%22mp_reach_v5%22,9# 05/20/24 10:26 -- -- Mucus SLIGHT https://[email or web address]/reports/Planitax_SplashMaps_driver?pa rameters=^MINE^, [id number],961487490.0,30127476.0,347350225.0,1121.0,%22MP_REACH%22,%22../../ resources/UnifiedContent%22,%22mp_reach_v5%22,9# 05/20/24 10:26 -- -- Hold Urine Culture Testing available 48 hours from time of collection. https://[email or web address]/reports/Planitax_unified_driver?pa rameters=^M INE^,96901231.0,411106655.0,53293425.0,348245777.0,1121.0,%22MP_REACH%22,%22. ./../resources/UnifiedContent%22,%22mp_reach_v5%22,9# 05/20/24 10:26 -- -- Est Creatinine Clearance *106.15 https://[email or web address]/reports/mp_unified_driver?pa rameters=^YARA^,2 0017745.0,283362977.0,39808488.0,692564835.0,1121.0,%22MP_REACH%22,%22../../r esources/UnifiedContent%22,%22mp_reach_v5%22,9# 05/20/24 11:03 Assessment & Plan Assessment & Plan (1) H. pylori duodenitis: Comment: Treatment resistant due to patient's intolerance of antibiotics, Code(s): K29.80 - Duodenitis without bleeding; B96.81 - Helicobacter pylori [H. pylori] as the cause of diseases classified elsewhere Category: Medical (2) GERD (gastroesophageal reflux disease): Code(s): K21.9 - Gastro-esophageal reflux disease without esophagitis Category: Medical Qualifiers: Esophagitis presence: without esophagitis Qualified Code(s): K21.9 - Gastro-esophageal reflux disease without esophagitis (3) Chronic idiopathic constipation: Code(s): K59.04 - Chronic idiopathic constipation Category: Medical Plan [place] #[id number] PT HAS BEEN LOST TO FOLLOW UP SINCE 2020 She was seen at the [facility] ER for N/V/D. 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 SO her carafate therapy lapsed. She has had nausea from most OTC CIC medications, that is why I had tried to progress to Linzess in the past. I will go back to this. Educated about chronic need for sucralfate r/t t he H pylori. She lsot about 70# from [facility] which she tolerated well but insurance did not cover. This was quite a long appointment because I had educate her about her chronic H pylori infection again and the need for continued follow-up. I also needed to research her ER visit to [facility] which was not readily available. ROV 4 weeks. Medications: New 2 sucralfate (Carafate) 2 grams (2 x 1 gram) PO QNOON 60 tabs 6RF B96.81 - Helicobacter pylori [H. pylori] as the cause of diseases classified elsewhere, K21.9 - Gastro-esophageal reflux disease without esophagitis, K29.80 - Duodenitis without bleeding, K59.04 - Chronic idiopathic constipation esomeprazole magnesium 40 mg PO DAILY 30 caps 6RF B96.81 - Helicobacter pylori [H. pylori] as the cause of diseases classified elsewhere, K29.80 - Duodenitis without bleeding linaclotide (Linzess) 72 mcg PO QAM 30 caps 6RF K59.04 - Chronic idiopathic constipation Discontinued 2 esomeprazole magnesium (Nexium) Discontinued Reason: Doctor's Order 20 mg PO DAILY 90 caps 3RF Coding Level of Care Code Est Pt Level 4 (79142) Diagnoses H. pylori duodenitis K29.80; B96.81 Gastroesophageal reflux disease without esophagitis K21.9 Esophagitis presence: without esophagitis Chronic idiopathic constipation K59.04 Time Spent (min) 39
--- NOTE | 2024-09-06 11:09 | MHC.OFFVIS ---
Vital Signs 09/06/24 11:26 Height 5 ft 6 in Weight 237 lb 4 oz BMI 38.3 BP 112/64 Blood Pressure Location Lt brachial Position Sitting Pulse 82 Pulse Source Pulse Oximeter Pulse Oximetry (%) 99 Oxygen Delivery Method Room Air Intake Visit Reasons: ED FUV. R/S from 09/05 provider illness. Intake Note: New patient for initial eval of abd pain. Pt seen at ED 05/2024. CC; C.O. N+V w/ hematemesis, intense upper abd pain. Pt states she was informed that the CT scan was negative, however, she should be following up with GI. Pt would also like to discuss colo in the near future as it was previously discussed at last visit. Vice Provost Required: Yes Vice Provost Services: Vice Provost Present Vice Provost Name: Scotty [id number] Information Interpreted: clinical only Accompanied by: Son Allergies Iodinated Contrast Media [IV CONTRAST] Allergy (Severe, Verified 08/17/24 15:05) ANAPHYLAXIS cyclobenzaprine [From FLEXERIL] Allergy (Intermediate, Verified 08/17/24 15:05) NUMBNESS gadobutrol [From GADAVIST] Allergy (Intermediate, Verified 08/17/24 15:05) DIFFICULTY BREATHING perfume [PERFUME] Allergy (Intermediate, Verified 08/17/24 15:05) TRIGGERS ASTHMA prednisone Allergy (Intermediate, Verified 08/17/24 15:05) swelling fish derived Allergy (Unknown, Verified 08/17/24 15:05) Swelling nuts Adverse Reaction (Uncoded 08/17/24 15:05) Itching HPI HPI ED FUV. R/S from 09/05 provider illness.: Details: Assessment & Plan (1) Gastritis: Comment: H pylori driven Code(s): K29.70 - Gastritis, unspecified, without bleeding Plan - Tali Valdes, ANP-C: [place] #[id number], Eyad. It appears that her colonoscopy was cancelled. She says she has good days and bad days. I ask about the colonoscopy and she tells me she needed an emergency surgery and was having wound healing problems. The surgery was performed by her SAGGER SOAK at [facility]. She is now feeling much, much better from this ordeal. She is willing to reschedule this - but after September 17 as she will be traveling at that time. The dulcolax is not working well for her CIC, it does not move her bowels consistently and if she takes it daily it causes her a great deal of abd pain. I think we need to move her to Linzess and will start at the lowest dose. Her stomach pain and GerD is currently well controlled on her protonix 40mg bid and the sucralfate which will be chronic in the face of her tx resistant HP. She is agreeable to 2-3 week f/u to titrate the CIC tx. (2) Bile acid esophageal reflux: Code(s): K21.9 - Gastro-esophageal reflux disease without esophagitis Plan - DIPESH Funk-C: A bad combination of bile irritation and treatment resistant H pylori contributes to her symptoms Medications: Refilled: sucralfate 2 grams (2 x 1 gram) PO DAILY 60 tabs 0RF pantoprazole 40 mg PO BID 90 days 180 tabs 3RF (3) Rectal bleeding: Comment: PLEASE ORDER AND SCHEDULE COLONOSCOPY (we can't do that yet) Code(s): K62.5 - Hemorrhage of anus and rectum (4) Hemorrhoids: Code(s): K64.9 - Unspecified hemorrhoids Plan - DIPESH Funk-C: She has had no recurrence of rectal bleeding and everything resolved quite well using Proctosol cream. Medications: Changed: From: hydrocortisone 2.5% (Proctosol HC) 1 appl RI BID 30 grams 3RF hemorrhoids To: hydrocortisone 2.5% (Proctosol HC) 1 dose bid RI 2 times a day; 30 days 30 grams 3RF (5) H. pylori duodenitis: Comment: Treatment resistant due to patient's intolerance of antibiotics, Code(s): K29.80 - Duodenitis without bleeding; B96.81 - Helicobacter pylori [H. pylori] as the cause of diseases classified elsewhere (6) GERD (gastroesophageal reflux disease): Code(s): K21.9 - Gastro-esophageal reflux disease without esophagitis Qualifiers: Esophagitis presence: without esophagitis Qualified Code(s): K21.9 - Gastro-esophageal reflux disease without esophagitis Medications: Refilled: sucralfate 2 grams (2 x 1 gram) PO DAILY 60 tabs 0RF pantoprazole 40 mg PO BID 90 days 180 tabs 3RF (7) Chronic idiopathic constipation: Code(s): K59.04 - Chronic idiopathic constipation Medications: New: linaclotide (Linzess) 72 mcg PO QAM 30 days [address] OF ABD AND PELVIS [facility] 05/2024 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 Visualized Chest: Minimal left basilar atelectasis. Trace pericardial fluid. Diaphragm: Tiny hiatal hernia. Liver: There is diffuse hepatic steatosis. Focal area of low attenuation anteriorly in segment 4 is geographic on coronal reconstruction and is likely an area of more focal fatty infiltration. Gallbladder: Absent consistent with prior cholecystectomy. Bile ducts: No biliary ductal dilation. Spleen: Normal. Pancreas: No peripancreatic stranding or fluid. Adrenal glands: No mass or thickening. Kidneys and ureters: No solid renal mass. No hydroureteronephrosis. No nephrolithiasis. Bladder: Nondistended urinary bladder. Reproductive organs: Post surgical changes. Stomach, small bowel, and large bowel: No bowel obstruction. No evidence of acute inflammation. Enteric contrast is present in the small bowel loops. The distal colon is nondistended. Appendix: No evidence for appendicitis. Peritoneum and retroperitoneum: Very trace free fluid in the pelvis which can be physiologic. No omental or mesenteric lesions. Lymph nodes: No enlarged lymph nodes. Blood vessels: Normal. No aneurysm. No evidence of venous thrombosis. Abdominal and pelvic wall: No acute abnormality. Small fat-containing umbilical hernia. Bones: No acute abnormality. IMPRESSION: No acute abnormality on CT of the abdomen and pelvis. Hepatic steatosis. WBC 10.4https://[facility]/Queue-it/[employer]/reports/mp_unified_driver?parameters=^MINE^,01821765.0,894799396.0,82094586.0,456512865.0,1121.0,%22MP_REACH%22,%22../../resources/UnifiedContent%22,%22mp_reach_v5%22,9# 05/20/24 10:27 -- -- RBC 4.86https://[facility]/[employer]/reports/mp_unified_driver?parameters=^MINE^,55683473.0,869931665.0,73979211.0,686303714.0,1121.0,%22MP_REACH%22,%22../../resources/UnifiedContent%22,%22mp_reach_v5%22,9# 05/20/24 10:27 -- -- Hgb 15.1https://[facility]/[employer]/reports/lifeaction games_unified_driver?parameters=^MINE^,64624243.0,532908499.0,61386213.0,483386050.0,1121.0,%22MP_REACH%22,%22../../resources/UnifiedContent%22,%22mp_reach_v5%22,9# 05/20/24 10:27 -- -- Hct 42.3https://[facility]/[employer]/reports/lifeaction games_unified_driver?parameters=^MINE^,41860077.0,312273713.0,70646015.0,435296292.0,1121.0,%22MP_REACH%22,%22../../resources/UnifiedContent%22,%22mp_reach_v5%22,9# 05/20/24 10:27 -- -- MCV 87.0https://[facility]/[employer]/reports/lifeaction games_unified_driver?parameters=^MINE^,63269559.0,253889460.0,54113353.0,093604242.0,1121.0,%22MP_REACH%22,%22../../resources/UnifiedContent%22,%22mp_reach_v5%22,9# 05/20/24 10:27 -- -- MCH 31.1https://[facility]/[employer]/reports/lifeaction games_unified_driver?parameters=^MINE^,00577312.0,571023486.0,24778607.0,455317723.0,1121.0,%22MP_REACH%22,%22../../resources/UnifiedContent%22,%22mp_reach_v5%22,9# 05/20/24 10:27 -- -- MCHC 35.7https://[facility]/[employer]/reports/mp_unified_driver?parameters=^MINE^,45091112.0,578077816.0,45495863.0,543191699.0,1121.0,%22MP_REACH%22,%22../../resources/UnifiedContent%22,%22mp_reach_v5%22,9# 05/20/24 10:27 -- -- Platelet Count 345https://[facility]/[employer]/reports/mp_unified_driver?parameters=^MINE^,64107912.0,877344545.0,91395786.0,029457886.0,1121.0,%22MP_REACH%22,%22../../resources/UnifiedContent%22,%22mp_reach_v5%22,9# 05/20/24 10:27 -- -- RDW-SD 39.5https://[facility]/[employer]/reports/mp_unified_driver?parameters=^MINE^,87641745.0,269774805.0,64070463.0,693287002.0,1121.0,%22MP_REACH%22,%22../../resources/UnifiedContent%22,%22mp_reach_v5%22,9# 05/20/24 10:27 -- -- MPV ?9.0https://[facility]/[employer]/reports/mp_unified_driver?parameters=^MINE^,79390837.0,182450804.0,06848178.0,644750195.0,1121.0,%22MP_REACH%22,%22../../resources/UnifiedContent%22,%22mp_reach_v5%22,9# 05/20/24 10:27 -- -- Nucleated RBC (Automated) 0.0https://[facility]/[employer]/reports/lifeaction games_Truminim_driver?parameters=^MINE^,28745549.0,033172521.0,27692212.0,502232649.0,1121.0,%22MP_REACH%22,%22../../resources/UnifiedContent%22,%22mp_reach_v5%22,9# 05/20/24 10:27 -- -- Abs. NRBC 0.0https://[facility]/[employer]/reports/lifeaction games_Truminim_driver?parameters=^MINE^,92763054.0,791401391.0,21688533.0,023514896.0,1121.0,%22MP_REACH%22,%22../../resources/UnifiedContent%22,%22mp_reach_v5%22,9# 05/20/24 10:27 -- -- Abs. Neut ?9.1https://[facility]/[employer]/reports/lifeaction games_Truminim_driver?parameters=^MINE^,51820971.0,031869627.0,42220584.0,367178827.0,1121.0,%22MP_REACH%22,%22../../resources/UnifiedContent%22,%22mp_reach_v5%22,9# 05/20/24 10:27 -- -- Abs. Lymph 0.8https://[facility]/[employer]/reports/lifeaction games_Truminim_driver?parameters=^MINE^,48359346.0,567627566.0,93515012.0,926656762.0,1121.0,%22MP_REACH%22,%22../../resources/UnifiedContent%22,%22mp_reach_v5%22,9# 05/20/24 10:27 -- -- Abs. Banner ?0.3https://[facility]/[employer]/reports/lifeaction games_Truminim_driver?parameters=^MINE^,59144064.0,841139274.0,44998780.0,871432492.0,1121.0,%22MP_REACH%22,%22../../resources/UnifiedContent%22,%22mp_reach_v5%22,905/20/24 10:27 -- -- Abs. Eo 0.0https://[facility]/[employer]/reports/lifeaction games_Truminim_driver?parameters=^MINE^,41253769.0,176491179.0,82099274.0,224951265.0,1121.0,%22MP_REACH%22,%22../../resources/UnifiedContent%22,%22mp_reach_v5%22,905/20/24 10:27 -- -- Abs. Baso 0.0https://[facility]/[employer]/reports/lifeaction games_Truminim_driver?parameters=^MINE^,87586604.0,978208960.0,48210156.0,155529001.0,1121.0,%22MP_REACH%22,%22../../resources/UnifiedContent%22,%22mp_reach_v5%22,9# 05/20/24 10:27 -- -- Neut % ?87.9https://[facility]/[employer]/reports/lifeaction games_Truminim_driver?parameters=^MINE^,11215952.0,823594545.0,15890480.0,843678939.0,1121.0,%22MP_REACH%22,%22../../resources/UnifiedContent%22,%22mp_reach_v5%22,9# 05/20/24 10:27 -- -- Lymph % ?8.0https://[facility]/[employer]/reports/lifeaction games_Truminim_driver?parameters=^MINE^,48471331.0,697471446.0,15978938.0,837293754.0,1121.0,%22MP_REACH%22,%22../../resources/UnifiedContent%22,%22mp_reach_v5%22,9# 05/20/24 10:27 -- -- Banner % ?3.1https://[facility]/[employer]/reports/lifeaction games_Truminim_driver?parameters=^MINE^,22574329.0,418957008.0,01831916.0,841183837.0,1121.0,%22MP_REACH%22,%22../../resources/UnifiedContent%22,%22mp_reach_v5%22,905/20/24 10:27 -- -- Eos % 0.4https://[facility]/[employer]/reports/lifeaction games_Truminim_driver?parameters=^MINE^,54887648.0,931347778.0,47629388.0,090318466.0,1121.0,%22MP_REACH%22,%22../../resources/UnifiedContent%22,%22mp_reach_v5%22,9# 05/20/24 10:27 -- -- Baso % 0.1https://[facility]/[employer]/reports/lifeaction games_Truminim_driver?parameters=^MINE^,92494979.0,230904508.0,60872435.0,718076717.0,1121.0,%22MP_REACH%22,%22../../resources/UnifiedContent%22,%22mp_reach_v5%22,9# 05/20/24 10:27 -- -- Imm Gran 0.5https://[facility]/[employer]/reports/mp_unified_driver?parameters=^MINE^,86069825.0,373237510.0,52484091.0,990754921.0,1121.0,%22MP_REACH%22,%22../../resources/UnifiedContent%22,%22mp_reach_v5%22,9# 05/20/24 10:27 -- -- Abs. Imm Gran 0.1https://[facility]/[employer]/reports/lifeaction games_Truminim_driver?parameters=^MINE^,26007787.0,160183108.0,32542681.0,281993213.0,1121.0,%22MP_REACH%22,%22../../resources/UnifiedContent%22,%22mp_reach_v5%22,9# 05/20/24 10:27 -- -- Hold Blue Top SPECIMEN DISCARDED AFTER 4 HOURS.https://[facility]/[employer]/reports/lifeaction games_Truminim_driver?parameters=^MINE^,98702791.0,508999175.0,30726206.0,878099745.0,1121.0,%22MP_REACH%22,%22../../resources/UnifiedContent%22,%22mp_reach_v5%22,9# 05/20/24 10:27 -- -- -CHEMISTRY (19) Sodium 138https://[facility]/[employer]/reports/mp_unified_driver?parameters=^MINE^,08489614.0,641353310.0,85591332.0,842256321.0,1121.0,%22MP_REACH%22,%22../../resources/UnifiedContent%22,%22mp_reach_v5%22,9# 05/20/24 10:27 -- -- Potassium 3.8https://[facility]/[employer]/reports/lifeaction games_Truminim_driver?parameters=^MINE^,58802123.0,656805406.0,54241507.0,435045708.0,1121.0,%22MP_REACH%22,%22../../resources/UnifiedContent%22,%22mp_reach_v5%22,9# 05/20/24 10:27 -- -- Chloride 103https://[facility]/[employer]/reports/lifeaction games_Truminim_driver?parameters=^MINE^,96113734.0,896569951.0,60018983.0,022185985.0,1121.0,%22MP_REACH%22,%22../../resources/UnifiedContent%22,%22mp_reach_v5%22,9# 05/20/24 10:27 -- -- Bicarbonate Level 24https://[facility]/[employer]/reports/lifeaction games_Truminim_driver?parameters=^MINE^,28460619.0,223176398.0,30483356.0,582005871.0,1121.0,%22MP_REACH%22,%22../../resources/UnifiedContent%22,%22mp_reach_v5%22,9# 05/20/24 10:27 -- -- Anion Gap 11https://[facility]/[employer]/reports/lifeaction games_Truminim_driver?parameters=^MINE^,65612857.0,142135586.0,42507831.0,067078736.0,1121.0,%22MP_REACH%22,%22../../resources/UnifiedContent%22,%22mp_reach_v5%22,9# 05/20/24 10:27 -- -- Glucose Level ?101https://[facility]/[employer]/reports/lifeaction games_Truminim_driver?parameters=^MINE^,31661990.0,428020129.0,81596280.0,528412929.0,1121.0,%22MP_REACH%22,%22../../resources/UnifiedContent%22,%22mp_reach_v5%22,9# 05/20/24 10:27 -- -- BUN 13https://[facility]/[employer]/reports/lifeaction games_Truminim_driver?parameters=^MINE^,44204077.0,075117699.0,49274122.0,585279028.0,1121.0,%22MP_REACH%22,%22../../resources/UnifiedContent%22,%22mp_reach_v5%22,9# 05/20/24 10:27 -- -- Creatinine-Blood 0.63https://[facility]/[employer]/reports/lifeaction games_Truminim_driver?parameters=^MINE^,08048328.0,505345096.0,40542000.0,515928927.0,1121.0,%22MP_REACH%22,%22../../resources/UnifiedContent%22,%22mp_reach_v5%22,9# 05/20/24 10:27 -- -- Estimated GFR Creatinine *111https://[facility]/[employer]/reports/lifeaction games_Truminim_driver?parameters=^MINE^,46157812.0,394949358.0,94126118.0,832550136.0,1121.0,%22MP_REACH%22,%22../../resources/UnifiedContent%22,%22mp_reach_v5%22,9# 05/20/24 10:27 -- -- Calcium 9.2https://[facility]/[employer]/reports/lifeaction games_Truminim_driver?parameters=^MINE^,78974035.0,056891450.0,45851586.0,450542732.0,1121.0,%22MP_REACH%22,%22../../resources/UnifiedContent%22,%22mp_reach_v5%22,9# 05/20/24 10:27 -- -- Protein, Total 8.0https://[facility]/[employer]/reports/lifeaction games_Truminim_driver?parameters=^MINE^,92800739.0,176324546.0,61556014.0,702525190.0,1121.0,%22MP_REACH%22,%22../../resources/UnifiedContent%22,%22mp_reach_v5%22,9# 05/20/24 10:27 -- -- Albumin 4.4https://[facility]/[employer]/reports/lifeaction games_Truminim_driver?parameters=^MINE^,47536508.0,607354094.0,72677318.0,887698337.0,1121.0,%22MP_REACH%22,%22../../resources/UnifiedContent%22,%22mp_reach_v5%22,9# 05/20/24 10:27 -- -- AG Ratio 1.2https://[facility]/[employer]/reports/lifeaction games_Truminim_driver?parameters=^MINE^,06429561.0,421441236.0,04830851.0,900139194.0,1121.0,%22MP_REACH%22,%22../../resources/UnifiedContent%22,%22mp_reach_v5%22,9# 05/20/24 10:27 -- -- Alkaline Phosphatase 102https://[facility]/[employer]/reports/lifeaction games_Truminim_driver?parameters=^MINE^,78918679.0,752164657.0,61100288.0,276421607.0,1121.0,%22MP_REACH%22,%22../../resources/UnifiedContent%22,%22mp_reach_v5%22,9# 05/20/24 10:27 -- -- Lipase, Serum/Plasma 16https://[facility]/[employer]/reports/lifeaction games_Truminim_driver?parameters=^MINE^,83750230.0,985617607.0,78272567.0,000762896.0,1121.0,%22MP_REACH%22,%22../../resources/UnifiedContent%22,%22mp_reach_v5%22,905/20/24 10:27 -- -- AST (SGOT) 16https://[facility]/[employer]/reports/lifeaction games_Truminim_driver?parameters=^MINE^,94007256.0,395076865.0,53106269.0,744001387.0,1121.0,%22MP_REACH%22,%22../../resources/UnifiedContent%22,%22mp_reach_v5%22,9# 05/20/24 10:27 -- -- ALT (SGPT) 15https://[facility]/[employer]/reports/lifeaction games_unified_driver?parameters=^MINE^,82622603.0,724835364.0,23206762.0,549027299.0,1121.0,%22MP_REACH%22,%22../../resources/UnifiedContent%22,%22mp_reach_v5%22,9# 05/20/24 10:27 -- -- Bilirubin, Total 0.9https://[facility]/[employer]/reports/mp_unified_driver?parameters=^MINE^,23331010.0,515475398.0,10711523.0,201752807.0,1121.0,%22MP_REACH%22,%22../../resources/UnifiedContent%22,%22mp_reach_v5%22,9# 05/20/24 10:27 -- -- Lactate 0.9https://[facility]/[employer]/reports/mp_unified_driver?parameters=^MINE^,45583139.0,588469937.0,14846305.0,413294877.0,1121.0,%22MP_REACH%22,%22../../resources/UnifiedContent%22,%22mp_reach_v5%22,9# 05/20/24 10:27 -- -- -URINE STUDIES (19) Appear/Color, Urine YELLOWhttps://[facility]/[employer]/reports/lifeaction games_unified_driver?parameters=^MINE^,35641632.0,626545549.0,82235599.0,267534381.0,1121.0,%22MP_REACH%22,%22../../resources/UnifiedContent%22,%22mp_reach_v5%22,9# 05/20/24 10:26 -- -- Clarity ?SL.CLOUDYhttps://[facility]/[employer]/reports/mp_unified_driver?parameters=^MINE^,25562851.0,950109228.0,17178550.0,237011118.0,1121.0,%22MP_REACH%22,%22../../resources/UnifiedContent%22,%22mp_reach_v5%22,9# 05/20/24 10:26 -- -- Specific [place], Urine 1.020https://[facility]/[employer]/reports/lifeaction games_Truminim_driver?parameters=^MINE^,25948524.0,350684047.0,05386030.0,055506477.0,1121.0,%22MP_REACH%22,%22../../resources/UnifiedContent%22,%22mp_reach_v5%22,9# 05/20/24 10:26 -- -- pH, Urine 6.5https://[facility]/[employer]/reports/mp_Truminim_driver?parameters=^MINE^,09146843.0,212832129.0,33601986.0,819508165.0,1121.0,%22MP_REACH%22,%22../../resources/UnifiedContent%22,%22mp_reach_v5%22,905/20/24 10:26 -- -- Albumin, Urine ?TRACEhttps://[facility]/[employer]/reports/lifeaction games_Truminim_driver?parameters=^MINE^,61558524.0,107737049.0,13578769.0,949305900.0,1121.0,%22MP_REACH%22,%22../../resources/UnifiedContent%22,%22mp_reach_v5%22,9# 05/20/24 10:26 -- -- Glucose, Urine NEGATIVEhttps://[facility]/[employer]/reports/mp_unified_driver?parameters=^MINE^,52371895.0,490793628.0,92659282.0,898072108.0,1121.0,%22MP_REACH%22,%22../../resources/UnifiedContent%22,%22mp_reach_v5%22,9# 05/20/24 10:26 -- -- Ketones, Urine ?TRACEhttps://[facility]/[employer]/reports/mp_Truminim_driver?parameters=^MINE^,64675624.0,672128171.0,69588964.0,911042979.0,1121.0,%22MP_REACH%22,%22../../resources/UnifiedContent%22,%22mp_reach_v5%22,9# 05/20/24 10:26 -- -- Bilirubin, Urine NEGATIVEhttps://[facility]/[employer]/reports/mp_unified_driver?parameters=^MINE^,83998151.0,749594364.0,00620567.0,934040369.0,1121.0,%22MP_REACH%22,%22../../resources/UnifiedContent%22,%22mp_reach_v5%22,9# 05/20/24 10:26 -- -- Hemoglobin, Urine ?1+https://[facility]/[employer]/reports/lifeaction games_Truminim_driver?parameters=^MINE^,01183606.0,762166528.0,98554469.0,682627599.0,1121.0,%22MP_REACH%22,%22../../resources/UnifiedContent%22,%22mp_reach_v5%22,9# 05/20/24 10:26 -- -- Nitrite, Urine NEGATIVEhttps://[facility]/[employer]/reports/mp_unified_driver?parameters=^MINE^,22516386.0,829445560.0,20705956.0,924457016.0,1121.0,%22MP_REACH%22,%22../../resources/UnifiedContent%22,%22mp_reach_v5%22,9# 05/20/24 10:26 -- -- Leukocyte, Urine NEGATIVEhttps://[facility]/[employer]/reports/mp_unified_driver?parameters=^MINE^,94251204.0,839583183.0,03632144.0,638352456.0,1121.0,%22MP_REACH%22,%22../../resources/UnifiedContent%22,%22mp_reach_v5%22,9# 05/20/24 10:26 -- -- Urobilinogen NORMALhttps://[facility]/[employer]/reports/mp_unified_driver?parameters=^MINE^,69703812.0,672097551.0,17253791.0,022161399.0,1121.0,%22MP_REACH%22,%22../../resources/UnifiedContent%22,%22mp_reach_v5%22,9# 05/20/24 10:26 -- -- WBC's, Urine 1https://[facility]/[employer]/reports/mp_unified_driver?parameters=^MINE^,90825719.0,849884626.0,04121833.0,839397959.0,1121.0,%22MP_REACH%22,%22../../resources/UnifiedContent%22,%22mp_reach_v5%22,9# 05/20/24 10:26 -- -- RBC's, Urine ?4https://[facility]/[employer]/reports/mp_unified_driver?parameters=^MINE^,72091797.0,289152860.0,00405354.0,005424080.0,1121.0,%22MP_REACH%22,%22../../resources/UnifiedContent%22,%22mp_reach_v5%22,9# 05/20/24 10:26 -- -- Bacteria ?SLIGHThttps://[facility]/[employer]/reports/lifeaction games_unified_driver?parameters=^MINE^,09949062.0,877377362.0,59400015.0,153976822.0,1121.0,%22MP_REACH%22,%22../../resources/UnifiedContent%22,%22mp_reach_v5%22,9# 05/20/24 10:26 -- -- Squamous Epith ?21https://[facility]/[employer]/reports/lifeaction games_unified_driver?parameters=^MINE^,59201352.0,147498613.0,37611195.0,136298489.0,1121.0,%22MP_REACH%22,%22../../resources/NativoContent%22,%22mp_reach_v5%22,9# 05/20/24 10:26 -- -- Mucus SLIGHThttps://[facility]/[employer]/reports/lifeaction games_unified_driver?parameters=^MINE^,[id number],[id number],64071578.0,099789635.0,1121.0,%22MP_REACH%22,%22../../resources/UnifiedContent%22,%22mp_reach_v5%22,9# 05/20/24 10:26 -- -- Hold Urine Culture Testing available 48 hours from time of collection.https://[facility]/[employer]/reports/lifeaction games_unified_driver?parameters=^MINE^,[id number],[id number],95083038.0,065492980.0,1121.0,%22MP_REACH%22,%22../../resources/NativoContent%22,%22mp_reach_v5%22,9# 05/20/24 10:26 -- -- Est Creatinine Clearance *106.15https://[facility]/[employer]/reports/mp_unified_driver?parameters=^MINE^,[id number],[id number],65776906.0,130901276.0,1121.0,%22MP_REACH%22,%22../../resources/UnifiedContent%22,%22mp_reach_v5%22,9# 05/20/24 11:03 [facility] #[id number] PT HAS BEEN LOST TO FOLLOW UP SINCE 2020 She was seen at the [facility] ER for N/V/D. 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 SO her carafate therapy lapsed. She has had nausea from most OTC CIC medications, that is why I had tried to progress to Linz[facility] in the past. I will go back to this. Educated about chronic need for sucralfate r/t t he H pylori. She lsot about 70# from [facility] which she tolerated well but insurance did not cover. This was quite a long appointment because I had educate her about her chronic H pylori infection again and the need for continued follow-up. I also needed to research her ER visit to [facility] which was not readily available. ROV 4 weeks. [facility] Medical History (Updated 09/06/24 @ 11:42 by JUSTIN Funk) Tracheobronchitis Right knee pain Physical exam Skin lesion Hypertension Left foot pain Chronic cough Right elbow pain Morbid obesity Generalized anxiety disorder Asthma Hypovitaminosis D Mild recurrent major depression Pleuritic chest pain COVID-19 Breast pain, left Sinusitis Low back pain Polyarthralgia Ophthalmoplegic migraine Menieres disease Frequent falls RBBB (right bundle branch block) Leg edema Breast mass, right Left elbow pain Fibromyalgia Ankle pain, right Labial lesion Rectal bleeding H. pylori duodenitis Submandibular lymphadenopathy Chronic neck pain AIRAM (obstructive sleep apnea) Panic attacks Surgical History History of endoscopy History of colonoscopy History of cholecystectomy History of hysterectomy History of tubal ligation History of section History of carpal tunnel surgery of right wrist Family History Father Oral cancer Thyroid cancer Colon cancer Mother JOEL (non-insulin dependent diabetes mellitus in young) Gastric ulcer Paternal Grandfather Colon cancer Paternal Uncle Colon cancer Other Family history of colon cancer in father Social History Housing: House Are you a primary childcare center administrator to a significant other at home: No Alcohol intake: never Patient Tobacco Use Status: Never used Tobacco e-Cigarette/Vaping Use: Never Used Second Hand Smoke Exposure: No service: No Current occupational status: unemployed Sexual orientation: Straight/Heterosexual Gender identity: Female Cognitive needs: No Hearing needs: No Vision needs: Yes Review of Systems Const Denies fatigue, Denies fever(s), Denies night sweats, Denies poor appetite and Denies weight loss ENT Reports Normal hearing present, Denies dysphagia, Denies odynophagia, Denies throat swelling and Denies tongue swelling Card Reports no additional complaints Resp Reports no additional complaints GI Details: Reports abdominal pain, Denies melena, Denies bloating, Denies hematochezia, Reports constipation, Denies GI cramping, Denies dysphagia, Denies excessive flatus, Denies early satiety, Reports dyspepsia, Reports heartburn, Denies diarrhea, Denies nausea, Denies odynophagia, Reports vomiting and Denies hematemesis Skin/Breast Denies pruritus, Denies lesions, Denies rash and Denies jaundice Neuro Reports Normal hearing present and Denies Abnormal speech present Psych Reports anxiety and Reports depression Endo Denies fatigue Aller/Immun Denies throat swelling and Denies tongue swelling Physical Exam Vital Signs: Last Vital Signs Pulse 82 09/06/24 11:26 BP 112/64 09/06/24 11:26 Pulse Ox 99 09/06/24 11:26 Oxygen Delivery Method Room Air 09/06/24 11:26 BMI result Body Mass Index 38.3 Const General: cooperative, no acute distress, well developed and well groomed Nutritional Appearance: well nourished and obese Orientation/consciousness: oriented to person, oriented to place and oriented to time Limitations: language barrier HEENT Head: Yes normocephalic and Yes atraumatic Eyes General: appearance normal, both eyes and all related structures Pupils: Equal, round and reactive pupils present Neck Neck: Yes normal visual inspection and Yes no lymphadenopathy Thyroid: Thyroid normal Resp Effort & Inspection: normal respiratory effort and able to speak in complete sentences Auscultation: clear to auscultation bilaterally Cardio Rate: regular rate Rhythm: regular rhythm Heart sounds: Normal, physiologic split S2 sound present Peripheral pulses: radial pulses present and posterior tibial pulses present GI Inspection: No distended, Yes Abdominal panniculus present, Yes obesity and Yes scar Palpation (GI): Soft to palpation, nontender, no guarding, not rigid and No hepatosplenomegaly present Percussion: Yes normal to percussion Auscultation: normal bowel sounds Rectal Exam - Female: deferred Abdomen image: 1. surgical scar Skin General skin exam: no rashes or lesions noted, turgor normal, skin not dry, no jaundice, No spider nevi and no striae Rashes: no rashes Nails: normal Neuro General: oriented to person, oriented to place and oriented to time Cranial nerves: Yes Equal, round and reactive pupils present and Yes Normal hearing present Speech: No Abnormal speech present Extrem General: Yes normal to inspection, No clubbing, No cyanosis and No edema Psych Appearance: grossly normal and well kempt Mental Status: mental status grossly normal Speech and movement: Normal speech and movement present Affect: normal affect Attitude: cooperative Thought process: Normal thought process present and not confabulating Thought content: Normal thought content present Insight: Limited insight present (Psych) Judgement: Limited judgement present (Psych) Results Reviewed Results Reviewed: CT OF ABD AND PELVIS [facility] 05/2024 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 Visualized Chest: Minimal left basilar atelectasis. Trace pericardial fluid. Diaphragm: Tiny hiatal hernia. Liver: There is diffuse hepatic steatosis. Focal area of low attenuation anteriorly in segment 4 is geographic on coronal reconstruction and is likely an area of more focal fatty infiltration. Gallbladder: Absent consistent with prior cholecystectomy. Bile ducts: No biliary ductal dilation. Spleen: Normal. Pancreas: No peripancreatic stranding or fluid. Adrenal glands: No mass or thickening. Kidneys and ureters: No solid renal mass. No hydroureteronephrosis. No nephrolithiasis. Bladder: Nondistended urinary bladder. Reproductive organs: Post surgical changes. Stomach, small bowel, and large bowel: No bowel obstruction. No evidence of acute inflammation. Enteric contrast is present in the small bowel loops. The distal colon is nondistended. Appendix: No evidence for appendicitis. Peritoneum and retroperitoneum: Very trace free fluid in the pelvis which can be physiologic. No omental or mesenteric lesions. Lymph nodes: No enlarged lymph nodes. Blood vessels: Normal. No aneurysm. No evidence of venous thrombosis. Abdominal and pelvic wall: No acute abnormality. Small fat-containing umbilical hernia. Bones: No acute abnormality. IMPRESSION: No acute abnormality on CT of the abdomen and pelvis. Hepatic steatosis. WBC 10.4https://[facility]/[employer]/reports/mp_Truminim_driver?parameters=^MINE^,48255136.0,385989427.0,20442010.0,227554033.0,1121.0,%22MP_REACH%22,%22../../resources/UnifiedContent%22,%22mp_reach_v5%22,9# 05/20/24 10:27 -- -- RBC 4.86https://[facility]/[employer]/reports/lifeaction games_Truminim_driver?parameters=^MINE^,37815575.0,734469063.0,63051738.0,754492709.0,1121.0,%22MP_REACH%22,%22../../resources/UnifiedContent%22,%22mp_reach_v5%22,9# 05/20/24 10:27 -- -- Hgb 15.1https://[facility]/[employer]/reports/lifeaction games_Truminim_driver?parameters=^MINE^,33104210.0,012128164.0,77211133.0,503962076.0,1121.0,%22MP_REACH%22,%22../../resources/UnifiedContent%22,%22mp_reach_v5%22,9# 05/20/24 10:27 -- -- Hct 42.3https://[facility]/[employer]/reports/mp_unified_driver?parameters=^MINE^,60725875.0,753922463.0,24456306.0,338804200.0,1121.0,%22MP_REACH%22,%22../../resources/UnifiedContent%22,%22mp_reach_v5%22,9# 05/20/24 10:27 -- -- MCV 87.0https://[facility]/[employer]/reports/mp_unified_driver?parameters=^MINE^,55881926.0,269201819.0,76417651.0,611260082.0,1121.0,%22MP_REACH%22,%22../../resources/UnifiedContent%22,%22mp_reach_v5%22,9# 05/20/24 10:27 -- -- MCH 31.1https://[facility]/[employer]/reports/mp_unified_driver?parameters=^MINE^,70653577.0,872801143.0,60816199.0,492167458.0,1121.0,%22MP_REACH%22,%22../../resources/UnifiedContent%22,%22mp_reach_v5%22,9# 05/20/24 10:27 -- -- MCHC 35.7https://[facility]/[employer]/reports/mp_unified_driver?parameters=^MINE^,53650814.0,921761489.0,10355324.0,093570924.0,1121.0,%22MP_REACH%22,%22../../resources/UnifiedContent%22,%22mp_reach_v5%22,9# 05/20/24 10:27 -- -- Platelet Count 345https://[facility]/[employer]/reports/lifeaction games_Truminim_driver?parameters=^MINE^,63862191.0,785913349.0,51338199.0,378694473.0,1121.0,%22MP_REACH%22,%22../../resources/UnifiedContent%22,%22mp_reach_v5%22,9# 05/20/24 10:27 -- -- RDW-SD 39.5https://[facility]/[employer]/reports/lifeaction games_unified_driver?parameters=^MINE^,31420128.0,501001015.0,55691556.0,146439267.0,1121.0,%22MP_REACH%22,%22../../resources/UnifiedContent%22,%22mp_reach_v5%22,9# 05/20/24 10:27 -- -- MPV ?9.0https://[facility]/[employer]/reports/lifeaction games_unified_driver?parameters=^MINE^,73383475.0,526760245.0,91279795.0,545792705.0,1121.0,%22MP_REACH%22,%22../../resources/UnifiedContent%22,%22mp_reach_v5%22,9# 05/20/24 10:27 -- -- Nucleated RBC (Automated) 0.0https://[facility]/[employer]/reports/lifeaction games_unified_driver?parameters=^MINE^,76619469.0,098789412.0,22399457.0,963861733.0,1121.0,%22MP_REACH%22,%22../../resources/NativoContent%22,%22mp_reach_v5%22,9# 05/20/24 10:27 -- -- Abs. NRBC 0.0https://[facility]/[employer]/reports/lifeaction games_Truminim_driver?parameters=^MINE^,26532525.0,775284412.0,93809425.0,923018389.0,1121.0,%22MP_REACH%22,%22../../resources/UnifiedContent%22,%22mp_reach_v5%22,9# 05/20/24 10:27 -- -- Abs. Neut ?9.1https://[facility]/[employer]/reports/lifeaction games_Truminim_driver?parameters=^MINE^,89170184.0,857330416.0,39971624.0,669355117.0,1121.0,%22MP_REACH%22,%22../../resources/UnifiedContent%22,%22mp_reach_v5%22,9# 05/20/24 10:27 -- -- Abs. Lymph 0.8https://[facility]/[employer]/reports/lifeaction games_Truminim_driver?parameters=^MINE^,62653728.0,098984219.0,93943072.0,589247228.0,1121.0,%22MP_REACH%22,%22../../resources/UnifiedContent%22,%22mp_reach_v5%22,9# 05/20/24 10:27 -- -- Abs. Banner ?0.3https://[facility]/[employer]/reports/lifeaction games_Truminim_driver?parameters=^MINE^,38137763.0,999268085.0,88780025.0,323419861.0,1121.0,%22MP_REACH%22,%22../../resources/UnifiedContent%22,%22mp_reach_v5%22,9# 05/20/24 10:27 -- -- Abs. Eo 0.0https://[facility]/[employer]/reports/mp_unified_driver?parameters=^MINE^,54746227.0,819756966.0,12528469.0,381251892.0,1121.0,%22MP_REACH%22,%22../../resources/UnifiedContent%22,%22mp_reach_v5%22,9# 05/20/24 10:27 -- -- Abs. Baso 0.0https://[facility]/reports/lifeaction games_Truminim_DigitalMR?parameters=^MINE^,00875234.0,814433527.0,46457514.0,054200150.0,1121.0,%22MP_REACH%22,%22../../resources/UnifiedContent%22,%22mp_reach_v5%22,905/20/24 10:27 -- -- Neut % ?87.9https://[facility]/[employer]/reports/PowerDsine_DigitalMR?parameters=^MINE^,03697231.0,525853945.0,99189829.0,379955519.0,1121.0,%22MP_REACH%22,%22../../resources/UnifiedContent%22,%22mp_reach_v5%22,905/20/24 10:27 -- -- Lymph % ?8.0https://[facility]/[employer]/reports/lifeaction games_Truminim_driver?parameters=^MINE^,49587153.0,155162454.0,76137541.0,810156276.0,1121.0,%22MP_REACH%22,%22../../resources/UnifiedContent%22,%22mp_reach_v5%22,9# 05/20/24 10:27 -- -- Banner % ?3.1https://[facility]/[employer]/reports/lifeaction games_Truminim_driver?parameters=^MINE^,87168497.0,492298374.0,39777107.0,986677661.0,1121.0,%22MP_REACH%22,%22../../resources/UnifiedContent%22,%22mp_reach_v5%22,9# 05/20/24 10:27 -- -- Eos % 0.4https://[facility]/[employer]/reports/lifeaction games_Truminim_driver?parameters=^MINE^,85083317.0,684255044.0,22309597.0,789733740.0,1121.0,%22MP_REACH%22,%22../../resources/UnifiedContent%22,%22mp_reach_v5%22,9# 05/20/24 10:27 -- -- Baso % 0.1https://[facility]/[employer]/reports/lifeaction games_Truminim_driver?parameters=^MINE^,37616223.0,418828017.0,18907709.0,885153977.0,1121.0,%22MP_REACH%22,%22../../resources/UnifiedContent%22,%22mp_reach_v5%22,9# 05/20/24 10:27 -- -- Imm Gran 0.5https://[facility]/[employer]/reports/lifeaction games_Truminim_driver?parameters=^MINE^,47098609.0,892607289.0,52652527.0,028995619.0,1121.0,%22MP_REACH%22,%22../../resources/UnifiedContent%22,%22mp_reach_v5%22,9# 05/20/24 10:27 -- -- Abs. Imm Gran 0.1https://[facility]/[employer]/reports/lifeaction games_Truminim_driver?parameters=^MINE^,16627254.0,371821130.0,58728256.0,850847546.0,1121.0,%22MP_REACH%22,%22../../resources/UnifiedContent%22,%22mp_reach_v5%22,9# 05/20/24 10:27 -- -- Hold Blue Top SPECIMEN DISCARDED AFTER 4 HOURS.https://[facility]/[employer]/reports/mp_unified_driver?parameters=^MINE^,42372551.0,626647793.0,42991677.0,458412490.0,1121.0,%22MP_REACH%22,%22../../resources/UnifiedContent%22,%22mp_reach_v5%22,9# 05/20/24 10:27 -- -- -CHEMISTRY (19) Sodium 138https://[facility]/[employer]/reports/lifeaction games_Truminim_driver?parameters=^MINE^,76617364.0,926426040.0,18575624.0,166382857.0,1121.0,%22MP_REACH%22,%22../../resources/UnifiedContent%22,%22mp_reach_v5%22,9# 05/20/24 10:27 -- -- Potassium 3.8https://[facility]/[employer]/reports/lifeaction games_unified_driver?parameters=^MINE^,58039281.0,294234324.0,54849292.0,372778468.0,1121.0,%22MP_REACH%22,%22../../resources/UnifiedContent%22,%22mp_reach_v5%22,9# 05/20/24 10:27 -- -- Chloride 103https://[facility]/[employer]/reports/lifeaction games_Truminim_driver?parameters=^MINE^,92157440.0,209264548.0,42765457.0,209595252.0,1121.0,%22MP_REACH%22,%22../../resources/UnifiedContent%22,%22mp_reach_v5%22,9# 05/20/24 10:27 -- -- Bicarbonate Level 24https://[facility]/[employer]/reports/mp_unified_driver?parameters=^MINE^,21520414.0,385991340.0,42406068.0,172238036.0,1121.0,%22MP_REACH%22,%22../../resources/UnifiedContent%22,%22mp_reach_v5%22,9# 05/20/24 10:27 -- -- Anion Gap 11https://[facility]/[employer]/reports/mp_Truminim_driver?parameters=^MINE^,05750781.0,468231269.0,82378573.0,586975333.0,1121.0,%22MP_REACH%22,%22../../resources/UnifiedContent%22,%22mp_reach_v5%22,9# 05/20/24 10:27 -- -- Glucose Level ?101https://[facility]/[employer]/reports/mp_Truminim_driver?parameters=^MINE^,02052515.0,415272005.0,04543260.0,058780544.0,1121.0,%22MP_REACH%22,%22../../resources/UnifiedContent%22,%22mp_reach_v5%22,9# 05/20/24 10:27 -- -- BUN 13https://[facility]/[employer]/reports/mp_unified_driver?parameters=^MINE^,67092903.0,652478908.0,59101274.0,229471821.0,1121.0,%22MP_REACH%22,%22../../resources/UnifiedContent%22,%22mp_reach_v5%22,9# 05/20/24 10:27 -- -- Creatinine-Blood 0.63https://[facility]/[employer]/reports/lifeaction games_Truminim_driver?parameters=^MINE^,62718696.0,325623401.0,08095358.0,014951571.0,1121.0,%22MP_REACH%22,%22../../resources/UnifiedContent%22,%22mp_reach_v5%22,9# 05/20/24 10:27 -- -- Estimated GFR Creatinine *111https://[facility]/[employer]/reports/lifeaction games_Truminim_driver?parameters=^MINE^,28728728.0,599391291.0,92423955.0,560407898.0,1121.0,%22MP_REACH%22,%22../../resources/UnifiedContent%22,%22mp_reach_v5%22,9# 05/20/24 10:27 -- -- Calcium 9.2https://[facility]/[employer]/reports/lifeaction games_Truminim_driver?parameters=^MINE^,92298759.0,602621681.0,04181352.0,279730782.0,1121.0,%22MP_REACH%22,%22../../resources/UnifiedContent%22,%22mp_reach_v5%22,9# 05/20/24 10:27 -- -- Protein, Total 8.0https://[facility]/[employer]/reports/lifeaction games_Truminim_driver?parameters=^MINE^,76604676.0,327012277.0,86035329.0,191517165.0,1121.0,%22MP_REACH%22,%22../../resources/UnifiedContent%22,%22mp_reach_v5%22,9# 05/20/24 10:27 -- -- Albumin 4.4https://[facility]/[employer]/reports/mp_Truminim_driver?parameters=^MINE^,70669817.0,705863764.0,36734091.0,412473489.0,1121.0,%22MP_REACH%22,%22../../resources/UnifiedContent%22,%22mp_reach_v5%22,9# 05/20/24 10:27 -- -- AG Ratio 1.2https://[facility]/[employer]/reports/lifeaction games_Truminim_driver?parameters=^MINE^,19198550.0,139179347.0,85810033.0,704409005.0,1121.0,%22MP_REACH%22,%22../../resources/UnifiedContent%22,%22mp_reach_v5%22,9# 05/20/24 10:27 -- -- Alkaline Phosphatase 102https://[facility]/[employer]/reports/lifeaction games_Truminim_driver?parameters=^MINE^,12295938.0,805847971.0,42160136.0,769730138.0,1121.0,%22MP_REACH%22,%22../../resources/UnifiedContent%22,%22mp_reach_v5%22,9# 05/20/24 10:27 -- -- Lipase, Serum/Plasma 16https://[facility]/[employer]/reports/lifeaction games_Truminim_driver?parameters=^MINE^,01609340.0,529298991.0,07831268.0,574003839.0,1121.0,%22MP_REACH%22,%22../../resources/UnifiedContent%22,%22mp_reach_v5%22,9# 05/20/24 10:27 -- -- AST (SGOT) 16https://[facility]/[employer]/reports/lifeaction games_Truminim_driver?parameters=^MINE^,07908120.0,791613192.0,49524196.0,785909661.0,1121.0,%22MP_REACH%22,%22../../resources/UnifiedContent%22,%22mp_reach_v5%22,9# 05/20/24 10:27 -- -- ALT (SGPT) 15https://[facility]/[employer]/reports/lifeaction games_Truminim_driver?parameters=^MINE^,65041072.0,068980830.0,43191396.0,296368314.0,1121.0,%22MP_REACH%22,%22../../resources/UnifiedContent%22,%22mp_reach_v5%22,9# 05/20/24 10:27 -- -- Bilirubin, Total 0.9https://[facility]/reports/lifeaction games_Truminim_driver?parameters=^MINE^,09029995.0,538056076.0,48342871.0,328471239.0,1121.0,%22MP_REACH%22,%22../../resources/UnifiedContent%22,%22mp_reach_v5%22,9# 05/20/24 10:27 -- -- Lactate 0.9https://[facility]/reports/lifeaction games_Truminim_driver?parameters=^MINE^,39600467.0,731517568.0,28169321.0,523210725.0,1121.0,%22MP_REACH%22,%22../../resources/UnifiedContent%22,%22mp_reach_v5%22,9# 05/20/24 10:27 -- -- -URINE STUDIES (19) Appear/Color, Urine YELLOWhttps://[facility]/[employer]/reports/lifeaction games_Truminim_driver?parameters=^MINE^,70819313.0,896118883.0,42221792.0,301826574.0,1121.0,%22MP_REACH%22,%22../../resources/UnifiedContent%22,%22mp_reach_v5%22,9# 05/20/24 10:26 -- -- Clarity ?SL.CLOUDYhttps://[facility]/[employer]/reports/lifeaction games_Truminim_driver?parameters=^MINE^,74763340.0,280295229.0,41100897.0,764534155.0,1121.0,%22MP_REACH%22,%22../../resources/UnifiedContent%22,%22mp_reach_v5%22,9# 05/20/24 10:26 -- -- Specific [place], Urine 1.020https://[facility]/[employer]/reports/lifeaction games_unified_driver?parameters=^MINE^,60135846.0,829817644.0,61375852.0,960872386.0,1121.0,%22MP_REACH%22,%22../../resources/UnifiedContent%22,%22mp_reach_v5%22,9# 05/20/24 10:26 -- -- pH, Urine 6.5https://[facility]/[employer]/reports/lifeaction games_Truminim_driver?parameters=^MINE^,95300482.0,232383544.0,22243467.0,281411319.0,1121.0,%22MP_REACH%22,%22../../resources/UnifiedContent%22,%22mp_reach_v5%22,9# 05/20/24 10:26 -- -- Albumin, Urine ?TRACEhttps://[facility]/[employer]/reports/lifeaction games_Truminim_driver?parameters=^MINE^,58010050.0,895803737.0,91991597.0,230621773.0,1121.0,%22MP_REACH%22,%22../../resources/UnifiedContent%22,%22mp_reach_v5%22,9# 05/20/24 10:26 -- -- Glucose, Urine NEGATIVEhttps://[facility]/[employer]/reports/lifeaction games_Truminim_driver?parameters=^MINE^,83989200.0,229195931.0,95879561.0,585756720.0,1121.0,%22MP_REACH%22,%22../../resources/UnifiedContent%22,%22mp_reach_v5%22,9# 05/20/24 10:26 -- -- Ketones, Urine ?TRACEhttps://[facility]/[employer]/reports/lifeaction games_Truminim_driver?parameters=^MINE^,88952669.0,665903428.0,13478369.0,143713687.0,1121.0,%22MP_REACH%22,%22../../resources/UnifiedContent%22,%22mp_reach_v5%22,9# 05/20/24 10:26 -- -- Bilirubin, Urine NEGATIVEhttps://[facility]/[employer]/reports/lifeaction games_Truminim_driver?parameters=^MINE^,38771251.0,767520927.0,92430336.0,564875716.0,1121.0,%22MP_REACH%22,%22../../resources/UnifiedContent%22,%22mp_reach_v5%22,9# 05/20/24 10:26 -- -- Hemoglobin, Urine ?1+https://[facility]/[employer]/reports/lifeaction games_Truminim_driver?parameters=^MINE^,37191302.0,117842426.0,30294740.0,703101921.0,1121.0,%22MP_REACH%22,%22../../resources/UnifiedContent%22,%22mp_reach_v5%22,9# 05/20/24 10:26 -- -- Nitrite, Urine NEGATIVEhttps://[facility]/reports/lifeaction games_Truminim_driver?parameters=^MINE^,57234006.0,372438914.0,86832453.0,662679611.0,1121.0,%22MP_REACH%22,%22../../resources/UnifiedContent%22,%22mp_reach_v5%22,905/20/24 10:26 -- -- Leukocyte, Urine NEGATIVEhttps://[facility]/[employer]/reports/lifeaction games_Truminim_driver?parameters=^MINE^,67470821.0,111298943.0,94538704.0,224827030.0,1121.0,%22MP_REACH%22,%22../../resources/UnifiedContent%22,%22mp_reach_v5%22,9# 05/20/24 10:26 -- -- Urobilinogen NORMALhttps://[facility]/[employer]/reports/lifeaction games_Truminim_driver?parameters=^MINE^,56332005.0,750262614.0,48620702.0,702157938.0,1121.0,%22MP_REACH%22,%22../../resources/UnifiedContent%22,%22mp_reach_v5%22,9# 05/20/24 10:26 -- -- WBC's, Urine 1https://[facility]/[employer]/reports/mp_unified_driver?parameters=^MINE^,10357068.0,576954990.0,01428330.0,742012187.0,1121.0,%22MP_REACH%22,%22../../resources/UnifiedContent%22,%22mp_reach_v5%22,9# 05/20/24 10:26 -- -- RBC's, Urine ?4https://[facility]/[employer]/reports/mp_unified_driver?parameters=^MINE^,35969488.0,373714507.0,30513853.0,180630223.0,1121.0,%22MP_REACH%22,%22../../resources/UnifiedContent%22,%22mp_reach_v5%22,9# 05/20/24 10:26 -- -- Bacteria ?SLIGHThttps://[facility]/[employer]/reports/mp_unified_driver?parameters=^MINE^,79834734.0,746036944.0,37936174.0,163287233.0,1121.0,%22MP_REACH%22,%22../../resources/UnifiedContent%22,%22mp_reach_v5%22,9# 05/20/24 10:26 -- -- Squamous Epith ?21https://[facility]/[employer]/reports/mp_unified_driver?parameters=^MINE^,78444516.0,751424904.0,83188479.0,705996743.0,1121.0,%22MP_REACH%22,%22../../resources/UnifiedContent%22,%22mp_reach_v5%22,9# 05/20/24 10:26 -- -- Mucus SLIGHThttps://[facility]/[employer]/reports/lifeaction games_Truminim_driver?parameters=^MINE^,50369267.0,724022042.0,20696127.0,924445214.0,1121.0,%22MP_REACH%22,%22../../resources/UnifiedContent%22,%22mp_reach_v5%22,9# 05/20/24 10:26 -- -- Hold Urine Culture Testing available 48 hours from time of collection.https://[facility]/[employer]/reports/lifeaction games_Truminim_driver?parameters=^MINE^,30149285.0,956771821.0,31319356.0,253056537.0,1121.0,%22MP_REACH%22,%22../../resources/UnifiedContent%22,%22mp_reach_v5%22,9# 05/20/24 10:26 -- -- Est Creatinine Clearance *106.15https://[facility]/[employer]/reports/lifeaction games_Truminim_driver?parameters=^MINE^,23339438.0,611051417.0,58872734.0,544448705.0,1121.0,%22MP_REACH%22,%22../../resources/UnifiedContent%22,%22mp_reach_v5%22,9# 05/20/24 11:03 Assessment & Plan Assessment & Plan (1) H. pylori duodenitis: Comment: Treatment resistant due to patient's intolerance of antibiotics, Code(s): K29.80 - Duodenitis without bleeding; B96.81 - Helicobacter pylori [H. pylori] as the cause of diseases classified elsewhere Category: Medical (2) GERD (gastroesophageal reflux disease): Code(s): K21.9 - Gastro-esophageal reflux disease without esophagitis Category: Medical Qualifiers: Esophagitis presence: without esophagitis Qualified Code(s): K21.9 - Gastro-esophageal reflux disease without esophagitis (3) Chronic idiopathic constipation: Code(s): K59.04 - Chronic idiopathic constipation Category: Medical Plan [place] #[id number] PT HAS BEEN LOST TO FOLLOW UP SINCE 2020 She was seen at the [facility] ER for N/V/D. 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 SO her carafate therapy lapsed. She has had nausea from most OTC CIC medications, that is why I had tried to progress to Linzess in the past. I will go back to this. Educated about chronic need for sucralfate r/t t he H pylori. She lsot about 70# from [facility] which she tolerated well but insurance did not cover. This was quite a long appointment because I had educate her about her chronic H pylori infection again and the need for continued follow-up. I also needed to research her ER visit to [facility] which was not readily available. ROV 4 weeks. Medications: New sucralfate (Carafate) 2 grams (2 x 1 gram) PO QNOON 60 tabs 6RF B96.81 - Helicobacter pylori [H. pylori] as the cause of diseases classified elsewhere, K21.9 - Gastro-esophageal reflux disease without esophagitis, K29.80 - Duodenitis without bleeding, K59.04 - Chronic idiopathic constipation esomeprazole magnesium 40 mg PO DAILY 30 caps 6RF B96.81 - Helicobacter pylori [H. pylori] as the cause of diseases classified elsewhere, K29.80 - Duodenitis without bleeding linaclotide (Linzess) 72 mcg PO QAM 30 caps 6RF K59.04 - Chronic idiopathic constipation Discontinued esomeprazole magnesium (Nexium) Discontinued Reason: Doctor's Order 20 mg PO DAILY 90 caps 3RF Coding Level of Care Code Est Pt Level 4 (32095) Diagnoses H. pylori duodenitis K29.80; B96.81 Gastroesophageal reflux disease without esophagitis K21.9 Esophagitis presence: without esophagitis Chronic idiopathic constipation K59.04 Time Spent (min) 39
[2024-09-06 11:26] VITALS: BP 112/64; PULSE 82; O2SAT 99; BMI 38.3
== END 2024-09-06 11:57 | disposition home or self-care (01) ==
PROVIDERS: PCP Physician Assistant; Visit Provider Nurse Practitioner
DX: K29.80 Duodenitis without bleeding (principal); B96.81 Helicobacter pylori [H. pylori] as the cause of diseases classified elsewhere; K21.9 Gastro-esophageal reflux disease without esophagitis; K59.04 Chronic idiopathic constipation
CPT/HCPCS: 99214

== ENCOUNTER → 2024-09-06 11:08 | Outpatient (BNVA) | payer OTHER, SELFPAY | PROVIDERS: PCP Physician Assistant; Visit Provider Nurse Practitioner | DX: K29.80 Duodenitis without bleeding (principal); K21.9 Gastro-esophageal reflux disease without esophagitis; K59.04 Chronic idiopathic constipation; B96.81 Helicobacter pylori [H. pylori] as the cause of diseases classified elsewhere | CPT/HCPCS: 99212 ==

== ENCOUNTER 2024-09-20 14:50 | Outpatient (REF) | payer OTHER, SELFPAY ==
--- NOTE | 2024-09-20 14:53 | EMG_ITS ---
Chief complaint: History of carpal tunnel release twice, 2018 and 2022. Symptoms have returned, described as numbness. Bilateral hand numbness. Reason for referral: Evaluate for Carpal Tunnel Syndrome or ulnar neuropathy Referred by: Dr. Feldman Procedure done: Bilateral upper extremities NCS/EMG Precautions and/or limitations: None The limb temperature was monitored continuously and remained between 32-36 degrees C during the performance of the NCS. Nerve Conduction Studies Anti Sensory Summary Table ?Stim Site NR Onset (ms) Norm Onset (ms) Peak (ms) Norm Peak (ms) O-P Amp (?V) Norm O-P Amp Site1 Site2 Delta-0 (ms) Dist (cm) Olu (m/s) Norm Olu (m/s) Left Median Anti Sensory (2nd Digit) Wrist ? 2.9 3.7 <3.6 69.1 >10 Wrist 2nd Digit 2.9 14.0 48 Right Median Anti Sensory (2nd Digit) Wrist ? 2.7 3.7 <3.6 48.9 >10 Wrist 2nd Digit 2.7 14.0 52 Right Radial Anti Sensory (Thumb) Forearm ? 1.5 2.1 <3.1 28.6 Forearm Thumb 1.5 0.0 Left Ulnar Anti Sensory (5th Digit) Wrist ? 2.8 3.4 <3.7 15.7 >15.0 Wrist 5th Digit 2.8 14.0 50 Right Ulnar Anti Sensory (5th Digit) Wrist ? 2.3 3.0 <3.7 15.7 >15.0 Wrist 5th Digit 2.3 14.0 61 Motor Summary Table ?Stim Site NR Onset (ms) Norm Onset (ms) O-P Amp (mV) Norm O-P Amp iAmp (mV) Amp (1st) (%) Site1 Site2 Delta-0 (ms) Dist (cm) Olu (m/s) Norm Olu (m/s) Left Median Motor (Abd Poll Brev) Wrist ? 4.0 <3.9 6.8 >4.5 8.6 100.0 Elbow Wrist 3.8 19.0 50 >45 Elbow ? 7.8 5.2 6.5 76.5 Right Median Motor (Abd Poll Brev) Wrist ? 4.3 <3.9 5.5 >4.5 6.9 100.0 Elbow Wrist 4.1 21.5 52 >45 Elbow ? 8.4 5.1 6.2 92.7 Left Ulnar Motor (Abd Dig Minimi) Wrist ? 2.9 <3.0 6.0 >5 7.6 100.0 B Elbow Wrist 3.5 19.0 54 >45 B Elbow ? 6.4 6.7 8.3 111.7 A Elbow B Elbow 1.6 10.0 63 >45 A Elbow ? 8.0 5.5 7.1 91.7 Right Ulnar Motor (Abd Dig Minimi) Wrist ? 2.8 <3.0 8.4 >5 10.8 100.0 B Elbow Wrist 3.5 19.0 54 >45 B Elbow ? 6.3 7.2 9.4 85.7 A Elbow B Elbow 1.9 10.0 53 >45 A Elbow ? 8.2 7.2 9.3 85.7 EMG ?Side Muscle Nerve Root Ins Act Fibs Psw Amp Dur Poly Recrt Int Pat Comment Right Abd Poll Brev Median C8-T1 Nml Nml Nml Nml Nml 0 Nml Complete Right FlexCarRad Median C6-7 Nml Nml Nml Nml Nml 0 Nml Complete Right Biceps Musculocut C5-6 Nml Nml Nml Nml Nml 0 Nml Complete Right Triceps Radial C6-7-8 Nml Nml Nml Nml Nml 0 Nml Complete Right Deltoid Axillary C5-6 Nml Nml Nml Nml Nml 0 Nml Complete Left FlexCarRad Median C6-7 Nml Nml Nml Nml Nml 0 Nml Complete Left Biceps Musculocut C5-6 Nml Nml Nml Nml Nml 0 Nml Complete Left Triceps Radial C6-7-8 Nml Nml Nml Nml Nml 0 Nml Complete Left Deltoid Axillary C5-6 Nml Nml Nml Nml Nml 0 Nml Complete Left Abd Poll Brev Median C8-T1 Nml Nml Nml Nml Nml 0 Nml Complete FINDINGS: Bilateral median motor nerves showed prolonged distal latency, normal amplitude and normal conduction velocity. Bilateral median sensory nerves showed prolonged peak latency. All other nerves tested were within normal. Concentric needle EMG was performed in selected muscles of the bilateral upper extremities including APB muscles. Study did not reveal signs of electric abnormalities as shown in the table above. IMPRESSION: 1. This is an abnormal study. 2. There is electrodiagnostic evidence for bilateral moderate-severe median neuropathy at the wrist, consistent with carpal tunnel syndrome. 3. There is no electrodiagnostic evidence for ulnar neuropathy, brachial plexopathy, or cervical radiculopathy. CLINICAL COMMENT: Note that I reviewed EMG done by Dr. Smith in 2020, normal bilateral upper extremity, did not show signs of Carpal Tunnel Syndrome at that time. Thank you for your kind referral. Marija Ramesh MD, LAITH Board Certified, [place] [employer] and [employer] (ABPMR) Board Certified, [place] Board [employer] Electrodiagnostic [employer] (ABEM) CODIN [phone] MTDD
== END 2024-09-20 14:51 | disposition home or self-care (01) ==
LOC: HO.NEURO 14:50
PROVIDERS: PCP Physician Assistant; Visit Provider Orthopaedic Surgery
DX: G56.03 Carpal tunnel syndrome, bilateral upper limbs (principal); R20.2 Paresthesia of skin; R20.0 Anesthesia of skin
CPT/HCPCS: 95886; 95911

== ENCOUNTER → 2024-09-20 14:53 | Outpatient (BNV) | payer OTHER, SELFPAY | PROVIDERS: PCP Physician Assistant; Visit Provider Physical Medicine & Rehabilitation | DX: G56.03 Carpal tunnel syndrome, bilateral upper limbs (principal) | CPT/HCPCS: 95886; 95911 ==

== ENCOUNTER 2024-09-22 11:22 | Day surgery (SDC) | payer OTHER, SELFPAY ==
--- OUTSIDE RECORDS SUMMARY | 2024-08-18 06:59 | XMS_ITS | Encounter Summary ---
Author Organization [facility] [employer] [facility] Address [address] [place] [address] Care Team Providers Care Pharmacist Per Diem Name Role Phone Trisha Aaron MD Primary Care Provider Mona bui Encounter Details Date Type Department Care Team Description 07/[facility] [address] [place] [address] Abstract, Provider Social History Tobacco Use Types [...] on filedocumented in this encounter Care Teams Pharmacist Per Diem Relationship Specialty Start Date End Date Trisha Aaron MD PCP - General Internal Medicine 12/31/17 documented as of this encounter
--- OUTSIDE RECORDS SUMMARY | 2024-08-18 06:59 | XMS_ITS | Clinical Summary ---
Author Organization [address] [place] [address] Address [address] [place] [address] Phone Care Team Providers Care Head Of Design Name Role Phone Trisha Aaron MD Primary Care Provider [phone] Allergies Active Allergy Reactions Criticality Noted Date [...] obesity with BMI of 4 0.0-44.9, adult ([facility] V24, [facility] V28) 01/27/2024 Asthma 04/06/2018 AIRAM (obstructive sleep apnea) 04/06/2018 Overview (01/27/2024): 10/2018 Home Sleep Study did not reveal sleep apnea or nocturnal hypoxia. Immunizations Name Administration Dates Next Due Influenza Quadravalent, MDCK , 0.5ml, preservative free (Flucelvax) 6mo and older 04/06/2018 Surgical History Surgery Date Site/Laterality Comments OTHER SURGICAL HISTORY PROCEDURE: [place] ARTHRS WRST EXC&/RPR TRIANG FIBROCART&/JOINT SECTION PROCEDURE: [...] PM EDT Office Visit Orthopedic Surgery - [place] [address] [facility] [address] [place] [address] Kenneth Bucio, DPGeovani 175 [facility] [address] [place] [address] Health Maintenance Due Date Last Done Comments [...] complete this topic Insurance PLAN Care Teams Head Of Design Relationship Specialty Start Date End Date Trisha Aaron MD 2 [facility] , [address] Physician Associ D/B/A: [facility] AURORA Carlin PCP - General Internal Medicine 12/31/17
--- OUTSIDE RECORDS SUMMARY | 2024-08-18 06:59 | XMS_ITS | Encounter Summary ---
Author Organization [facility] Address [address] [place] [address] Care Team Providers Care Nutrition Specialist Name Role Phone Trisha Aaron MD Primary Care Provider Mona bui Reason for Visit * Reason Comments E-prescribe Rx Request Encounter Details Date Type Department Care Team Description 03/23/[address] [facility] Medical [facility] [address] [place] [phone] Kenneth Bucio DPM E-prescribe Rx Request [...] on filedocumented in this encounter Care Teams Nutrition Specialist Relationship Specialty Start Date End Date Trisha Aaron MD PCP - General Internal Medicine 12/31/17 documented as of this encounter
--- OUTSIDE RECORDS SUMMARY | 2024-08-18 06:59 | XMS_ITS | Encounter Summary ---
Author Organization [employer] Address [address] [place] [address] Care Team Providers Care Route Agent Name Role Phone Trisha Aaron MD Primary Care Provider Mona bui Reason for Visit * Reason Onset Date Comments Provider Call Back 10/27/2018 Encounter Details Date Type Department Care Team Description 10/27/2018 Telephone Pulmonology - [place] 175 [facility] [address] [place] [address] Bryan Sheehan MD Provider Call [...] filedocumented in this encounter Care Teams Route Agent Relationship Specialty Start Date End Date Trisha Aaron MD PCP - General Internal Medicine 12/31/17 documented as of this encounter
--- OUTSIDE RECORDS SUMMARY | 2024-08-18 06:59 | XMS_ITS | Encounter Summary ---
Author Organization [facility] Address [address] [place] [address] Care Team Providers Care Preparole Counseling Aide Name Role Phone Trisha Aaron MD Primary Care Provider Mona bui Reason for Visit * Reason Onset Date Comments Information Needed 05/16/2019 Encounter Details Date Type Department Care Team Description 05/16/[address] [id number] Trisha Aaron MD Information Needed Social History [...] on filedocumented in this encounter Care Teams Preparole Counseling Aide Relationship Specialty Start Date End Date Trisha Aaron MD PCP - General Internal Medicine 12/31/17 documented as of this encounter
--- OUTSIDE RECORDS SUMMARY | 2024-08-18 06:59 | XMS_ITS | Encounter Summary ---
[facility] Address [address] [place] [address] Care Team Providers Care Food Service Driver Name Role Phone Trisha Aaron MD Primary Care Provider Mona bui Reason for Visit * Reason Onset Date Comments radiology 07/03/2022 MRI appt Encounter Details Date Type Department Care Team Description 07/03/2022 Telephone Radiology - [address] [address] Kenneth Bucio DPM radiology (MRI appt) Social [...] on filedocumented in this encounter Care Teams Food Service Driver Relationship Specialty Start Date End Date Trisha Aaron MD PCP - General Internal Medicine 12/31/17 documented as of this encounter
--- OUTSIDE RECORDS SUMMARY | 2024-08-18 06:59 | XMS_ITS | Encounter Summary ---
Author Organization [facility] Address [address] [place] [address] Care Team Providers Care Junior Linux Administrator Name Role Phone Trisha Aaron MD Primary Care Provider Mona bui Reason for Visit * Reason Comments E-prescribe Rx Request Encounter Details Date Type Department Care Team Description 10/20/2023 Refill [facility] Medical [facility] [address] [place] [phone] Kenneth Bucio DPM E-prescribe Rx Request [...] on filedocumented in this encounter Care Teams Junior Linux Administrator Relationship Specialty Start Date End Date Trisha Aaron MD PCP - General Internal Medicine 12/31/17 documented as of this encounter
--- OUTSIDE RECORDS SUMMARY | 2024-08-18 06:59 | XMS_ITS | Encounter Summary ---
Author Organization [facility] Address [address] [place] [address] Care Team Providers Care Nut Orchardist Name Role Phone Trisha Aaron MD Primary Care Provider Mona bui Reason for Visit * Reason Comments E-prescribe Rx Request Encounter Details Date Type Department Care Team Description 04/27/2023 Refill [facility] Medical [facility] [address] [place] [phone] Kenneth Bucio DPM E-prescribe Rx Request [...] on filedocumented in this encounter Care Teams Nut Orchardist Relationship Specialty Start Date End Date Trisha Aaron MD PCP - General Internal Medicine 12/31/17 documented as of this encounter
--- OUTSIDE RECORDS SUMMARY | 2024-08-18 06:59 | XMS_ITS | Encounter Summary ---
Author Organization [facility] Address [address] [place] [address] Care Team Providers Care Fashion Illustrator Name Role Phone Trisha Aaron MD Primary Care Provider Mona bui Encounter Details Date Type Department Care Team Description 09/28/2018 Stroke Program Coordinator Report Medical Records [address] [place] [address] Trisha Aaron MD Social History Tobacco Use Types Packs/Day Years Used Date Smoking Tobacco: Never Smokeless Tobacco: Never Sex Assigned at Date Recorded Not on file documented as of this encounter Plan of Treatment Not on file documented as of this encounter Visit Diagnoses Not on filedocumented in this encounter Care Teams Fashion Illustrator Relationship Specialty Start Date End Date Trisha Aaron MD PCP - General Internal Medicine 12/31/17 documented as of this encounter
--- OUTSIDE RECORDS SUMMARY | 2024-08-18 06:59 | XMS_ITS | Encounter Summary ---
Author Organization [facility] Address [address] [place] [address] Care Team Providers Care Bacteriologist Industrial Name Role Phone Trisha Aaron MD Primary Care Provider Mona bui Reason for Visit * Reason Comments E-prescribe Rx Request Encounter Details Date Type Department Care Team Description 01/21/[address] [facility] Medical [facility] [address] [place] [phone] Kenneth Bucio DPM E-prescribe Rx Request [...] on filedocumented in this encounter Care Teams Bacteriologist Industrial Relationship Specialty Start Date End Date Trisha Aaron MD PCP - General Internal Medicine 12/31/17 documented as of this encounter
--- OUTSIDE RECORDS SUMMARY | 2024-08-18 06:59 | XMS_ITS | Encounter Summary ---
Author Organization [employer] [facility] Address [address] [place] [address] Care Team Providers Care Punch Finisher Name Role Phone Trisha Aaron MD Primary Care Provider Mona bui Reason for Visit * Reason Comments E-prescribe Rx Request Encounter Details Date Type Department Care Team Description 01/02/2019 Refill OBGYN - [address] [facility] [address] [place] [address] Monica Emanuel CNM [address] [place] [address] E-prescribe Rx Request Social History Tobacco Use Types Packs/Day Years Used Date Smoking Tobacco: Never Smokeless Tobacco: Never Sex Assigned at Date Recorded Not on file documented as of this encounter Plan of Treatment Not on file documented as of this encounter Visit Diagnoses Not on filedocumented in this encounter Care Teams Punch Finisher Relationship Specialty Start Date End Date Trisha Aaron MD PCP - General Internal Medicine 12/31/17 documented as of this encounter
--- OUTSIDE RECORDS SUMMARY | 2024-08-18 06:59 | XMS_ITS | Encounter Summary ---
Author Organization [facility] Address [facility] [place] [address] Care Team Providers Care Special Education Preschool Teacher Name Role Phone Trisha Aaron MD Primary Care Provider Mona bui Encounter Details Date Type Department Care Team Description 04/11/2019 Release of Information Medical Records [address] [place] [id number] Abstract, Provider Social History Tobacco Use Types [...] on filedocumented in this encounter Care Teams Special Education Preschool Teacher Relationship Specialty Start Date End Date Trisha Aaron MD PCP - General Internal Medicine 12/31/17 documented as of this encounter
--- OUTSIDE RECORDS SUMMARY | 2024-08-18 06:59 | XMS_ITS | Clinical Summary ---
Author Organization [facility] Address [address] [place] [address] Care Team Providers Care Line Palletizer Name Role Phone Trisha Aaron MD Primary [...] at bedtime as needed. 0 Active Tiotropium Sunnyside Monohydrate (SPIRIVA RESPIMAT) 2.5 MCG/ACT Aero Soln [...] INFLUENZA (Season Ended) 2024 04/06/2018 Care Teams Line Palletizer Relationship Specialty Start Date End Date Trisha Aaron MD PCP - General Internal Medicine 12/31/17
--- OUTSIDE RECORDS SUMMARY | 2024-08-18 06:59 | XMS_ITS | Encounter Summary ---
Author Organization [facility] [employer] [facility] Address [address] [place] [address] Care Team Providers Care Senior Data Architect Name Role Phone Trisha Aaron MD Primary Care Provider Mona bui Encounter Details Date Type Department Care Team Description 02/10/2019 Orders Only OBGYN - [facility] [address] [place] [address] Ya Ramírez DO Menorrhagia with regular cycle [...] menstruation documented in this encounter Care Teams Senior Data Architect Relationship Specialty Start Date End Date Trisha Aaron MD PCP - General Internal Medicine 12/31/17 documented as of this encounter
--- OUTSIDE RECORDS SUMMARY | 2024-08-18 06:59 | XMS_ITS | Encounter Summary ---
Author Organization [employer] [facility] Address [address] [place] [address] Care Team Providers Care Supplies Packer Name Role Phone Trisha Aaron MD Primary Care Provider Mona bui Encounter Details Date Type Department Care Team Description 05/09/2020 Orders Only OBGYN - [place] [address] [place] [address] Ya Ramírez DO Irregular menstrual cycle (Primary [...] (HCC) documented in this encounter Care Teams Supplies Packer Relationship Specialty Start Date End Date Trisha Aaron MD PCP - General Internal Medicine 12/31/17 documented as of this encounter
--- OUTSIDE RECORDS SUMMARY | 2024-08-18 06:59 | XMS_ITS | Encounter Summary ---
Author Organization [employer] [facility] Address [address] [place] [address] Care Team Providers Care Humid System Operator Name Role Phone Trisha Aaron MD Primary Care Provider Mona bui Reason for Visit * Reason Comments E-prescribe Rx Request Encounter Details Date Type Department Care Team Description 04/03/2019 Refill OBGYN - 271 [facility] [address] [place] [address] Nohemy Malhotra CNM [address] [place] [address] E-prescribe Rx Request Social History [...] EST WHEN WAS THE PATIENTS LAST ANNUAL INTERVENTION MANAGER EXAM? New pt no ag on [...] the end of the day? NO Payor: [employer]FS / Plan: [facility] / Product Type: MEDICAID RISK documented in this encounter Plan of Treatment Not on file documented as of this encounter Visit Diagnoses Not on filedocumented in this encounter Care Teams Humid System Operator Relationship Specialty Start Date End Date Trisha Aaron MD PCP - General Internal Medicine 12/31/17 documented as of this encounter
--- OUTSIDE RECORDS SUMMARY | 2024-08-18 06:59 | XMS_ITS | Encounter Summary ---
Author Organization [facility] [facility] Address [address] [place] [address] Care Team Providers Care Needle Control Cheniller Name Role Phone Trisha Aaron MD Primary Care Provider Mona bui Reason for Visit * Reason Comments E-prescribe Rx Request Encounter Details Date Type Department Care Team Description 06/30/2023 Refill [facility] [address] [place] [address] [facility] [address] [place] [address] E-prescribe Rx Request Social History Tobacco Use [...] EDT WHEN WAS THE PATIENTS LAST ANNUAL PETAL SHAPER HAND EXAM? ? Does patient have an upcoming [...] the end of the day? YES Payor: [facility] [employer] [facility] FFS / Plan: [facility] / Product Type: MEDICAID RISK documented in this encounter Plan of Treatment Not on file documented as of this encounter Visit Diagnoses Not on filedocumented in this encounter Care Teams Needle Control Cheniller Relationship Specialty Start Date End Date Trisha Aaron MD PCP - General Internal Medicine 12/31/17 documented as of this encounter
[2024-09-20 11:10] VITALS: BMI 40.8
--- NOTE | 2024-09-21 09:28 | HO.ANESPROP2 ---
Documented by User: Niru Gustafson NP 09/21/24 09:32 HPI - Anesthesia Eval Consult details Narrative: 44yo F for Right Knee Arthroscopy with partial lateral meniscectomy PMFSH Active Problems Active Problems: All Active Problems Tear of lateral meniscus of right knee (Acute) Numbness and tingling in left hand (Acute) Numbness and tingling in right hand (Acute) Tear of medial meniscus of right knee (Acute) Left ankle pain (Acute) Pain of right breast (Acute) Skin lesion (Acute) Epigastric pain (Acute) Weight loss (Acute) Lumbar pain (Acute) Knee pain, left (Acute) Hypertension (Acute) Right-sided face pain (Acute) Left foot pain (Acute) Chest pain (Acute) Urge urinary incontinence (Acute) Vertigo (Acute) Tonsillitis (Acute) Polyarthralgia (Acute) History of carpal tunnel surgery of right wrist (Acute) Carpal tunnel syndrome of right wrist (Acute) COVID-19 (Acute) Toenail fungus (Acute) Left knee pain (Acute) Hand pain (Acute) Chronic cough (Acute) Asthma (Acute) AIRAM (obstructive sleep apnea) (Acute) Chronic allergic rhinitis (Acute) Sinusitis (Acute) Morbid obesity (Acute) Mild recurrent major depression (Acute) Generalized anxiety disorder (Acute) Panic attacks (Acute) Frequent falls (Acute) Ophthalmoplegic migraine (Acute) Menieres disease (Acute) Fibromyalgia (Acute) Gastritis (Acute) H. pylori duodenitis (Acute) GERD (gastroesophageal reflux disease) (Acute) Hemorrhoids (Acute) Chronic idiopathic constipation (Acute) Family history of colon cancer in father (Acute) Hypovitaminosis D (Acute) Menometrorrhagia (Acute) Sciatica (Acute) Chronic neck pain (Acute) Medial epicondylitis of right elbow (Acute) Median neuropathy (Acute) Right elbow pain (Acute) Right hand pain (Acute) Past Medical History Medical History Tracheobronchitis Right knee pain Physical exam Skin lesion Hypertension Left foot pain Chronic cough Right elbow pain Morbid obesity Generalized anxiety disorder Asthma Hypovitaminosis D Mild recurrent major depression Pleuritic chest pain COVID-19 Breast pain, left Sinusitis Low back pain Polyarthralgia Ophthalmoplegic migraine Menieres disease Frequent falls RBBB (right bundle branch block) Leg edema Breast mass, right Left elbow pain Fibromyalgia Ankle pain, right Labial lesion Rectal bleeding H. pylori duodenitis Submandibular lymphadenopathy Chronic neck pain AIRAM (obstructive sleep apnea) Panic attacks Family History Family History Father Oral cancer Thyroid cancer Colon cancer Mother JOEL (non-insulin dependent diabetes mellitus in young) Gastric ulcer Paternal Grandfather Colon cancer Paternal Uncle Colon cancer Other Family history of colon cancer in father Surgical History Surgical History History of endoscopy History of colonoscopy History of cholecystectomy History of hysterectomy History of tubal ligation History of section History of carpal tunnel surgery of right wrist Social History Social History Housing: House Are you a primary pharmacy care coordinator to a significant other at home: No Alcohol intake: never Patient Tobacco Use Status: Never used Tobacco e-Cigarette/Vaping Use: Never Used Second Hand Smoke Exposure: No Use of substances other than those prescribed or required for medical reasons: No Have you been hit, kicked, punched, or otherwise hurt by someone within the past year? If so, by whom?: No Are you DNR?: No Advance Directives: No Advance Directives Information Provided: Yes Advance Directives on File: No Patient : No : No Poor oral hygiene: No service: No Current occupational status: unemployed Sexual orientation: Straight/Heterosexual Gender identity: Female Cognitive needs: No Hearing needs: No Vision needs: Yes Meds Allergies Allergy/AdvReac Type Severity Reaction Status Date / Time Iodinated Contrast Media (IV Allergy Severe ANAPHYLAXIS Verified 08/17/24 15:05 CONTRAST) cyclobenzaprine (From Allergy Intermediate NUMBNESS Verified 08/17/24 15:05 FLEXERIL) gadobutrol (From GADAVIST) Allergy Intermediate DIFFICULTY Verified 08/17/24 15:05 BREATHING perfume (PERFUME) Allergy Intermediate TRIGGERS Verified 08/17/24 15:05 ASTHMA prednisone Allergy Intermediate swelling Verified 08/17/24 15:05 fish derived Allergy Unknown Swelling Verified 08/17/24 15:05 nuts AdvReac Itching Uncoded 08/17/24 15:05 Active Medications: Current Medications Cefazolin Sodium/Dextrose (Ancef) 2 gm in 50 mls @ 100 mls/hr IV PREOP ONE Stop: 09/22/24 06:13 Home Medications ?Medication ?Instructions ?Recorded ?Confirmed ?Last Taken ?Type zolpidem 10 mg tablet 10 mg PO BEDTIME PRN Sleep 02/09/20 08/18/24 Unknown History clonazepam 1 mg tablet 1 mg PO BID PRN 04/25/21 08/18/24 Unknown History hydroxyzine HCl 50 mg tablet 50 mg PO BID 09/28/23 08/18/24 Unknown History Exam Height,Weight and Vital Signs: Height 5 ft 6 in Weight 114.759 kg Pertinent Lab Results Pertinent Lab Results: Laboratory Tests 06/16/24 10:43 WBC 5.6 Hgb 14.1 Hct 41.8 Plt Count 331 Sodium 141 Potassium 3.9 Chloride 107 Carbon Dioxide 27 BUN 12 Creatinine 0.62 Assessment and Plan Assessment Anesthesia Assessment: Chart Reviewed Documented by User: Jef Snell MD 09/22/24 14:12 [facility] Past Medical History Medical History Tracheobronchitis Right knee pain Physical exam Skin lesion Hypertension Left foot pain Chronic cough Right elbow pain Morbid obesity Generalized anxiety disorder Asthma Hypovitaminosis D Mild recurrent major depression Pleuritic chest pain COVID-19 Breast pain, left Sinusitis Low back pain Polyarthralgia Ophthalmoplegic migraine Menieres disease Frequent falls RBBB (right bundle branch block) Leg edema Breast mass, right Left elbow pain Fibromyalgia Ankle pain, right Labial lesion Rectal bleeding H. pylori duodenitis Submandibular lymphadenopathy Chronic neck pain AIRAM (obstructive sleep apnea) Panic attacks Cognitive capacity: normal Functional capacity: independent ambulation Family History Family History Father Oral cancer Thyroid cancer Colon cancer Mother NIDDY (non-insulin dependent diabetes mellitus in young) Gastric ulcer Paternal Grandfather Colon cancer Paternal Uncle Colon cancer Other Family history of colon cancer in father Family history of problems with anesthesia: No Surgical History Surgical History History of endoscopy History of colonoscopy History of cholecystectomy History of hysterectomy History of tubal ligation History of section History of carpal tunnel surgery of right wrist History of Problems with Anesthesia: No Social History Social History Housing: House Are you a primary pharmacy care coordinator to a significant other at home: No Alcohol intake: never Patient Tobacco Use Status: Never used Tobacco e-Cigarette/Vaping Use: Never Used Second Hand Smoke Exposure: No Use of substances other than those prescribed or required for medical reasons: No Have you been hit, kicked, punched, or otherwise hurt by someone within the past year? If so, by whom?: No Are you DNR?: No Advance Directives: No Advance Directives Information Provided: Yes Advance Directives on File: No Patient : No : No Poor oral hygiene: No service: No Current occupational status: unemployed Sexual orientation: Straight/Heterosexual Gender identity: Female Cognitive needs: No Hearing needs: No Vision needs: Yes Meds Allergies Allergy/AdvReac Type Severity Reaction Status Date / Time Iodinated Contrast Media (IV Allergy Severe ANAPHYLAXIS Verified 08/17/24 15:05 CONTRAST) cyclobenzaprine (From Allergy Intermediate NUMBNESS Verified 08/17/24 15:05 FLEXERIL) gadobutrol (From GADAVIST) Allergy Intermediate DIFFICULTY Verified 08/17/24 15:05 BREATHING perfume (PERFUME) Allergy Intermediate TRIGGERS Verified 08/17/24 15:05 ASTHMA prednisone Allergy Intermediate swelling Verified 08/17/24 15:05 fish derived Allergy Unknown Swelling Verified 08/17/24 15:05 nuts AdvReac Itching Uncoded 08/17/24 15:05 Home Medications ?Medication ?Instructions ?Recorded ?Confirmed ?Last Taken ?Type zolpidem 10 mg tablet 10 mg PO BEDTIME PRN Sleep 02/09/20 08/18/24 Unknown History clonazepam 1 mg tablet 1 mg PO BID PRN 04/25/21 08/18/24 Unknown History hydroxyzine HCl 50 mg tablet 50 mg PO BID 09/28/23 08/18/24 Unknown History Exam Exam Date and Time: 09/22/2024 Airway TM Dist: >3cm Loose/Missing/Broken Teeth: No Heart: RRR Lungs: CTA Other: normal cognitive function Assessment and Plan Final Anesthetic Review Family History of Problems with Anesthesia: No History of Problems with Anesthesia: No ASA Class: II Final Preanesthetic Review: No Changes in Pt Med Stat, Meds/Allgs Chart Reviewed, Consent Obtained/Reviewed and Anes Risks/Benef Reviewed Patient Risk: Intermediate Procedure Risk: Low Anesthetic Plan Anesthetic Plan: GA Disposition: Standard PACU
[2024-09-22] VITALS (9 sets, daily range): BP systolic 116–159; BP diastolic 60–98; PULSE 72–90; RESP 10–18; TEMP 36.6; O2SAT 96–100; BMI 37.9
[2024-09-22] MEDS: Lactated Ringers 1,000 ML 100 ML IVCONT (12:19)
--- NOTE | 2024-09-22 14:59 | P.BOP_ITS ---
Brief Operative Note Date of Service: 09/22/24 Pre-op diagnosis: Right knee lateral meniscus tear, right knee degenerative joint disease Post-op diagnosis: same Procedure: Right knee arthroscopic partial lateral meniscectomy, right knee arthroscopic chondroplasty of the undersurface of the patella Implants: None Surgeon: Rosendo Scanlon MD Anesthesia: GLMA Was an Concrete Buildings Assembler used for this Procedure?: No Estimated blood loss (mL): 10 Pathology: none sent Condition: stable Disposition: PACU
[2024-09-22] MEDS: fentaNYL citrate/PF 100 MCG/2 ML VIAL 25 MCG IVPUSH ×4 (15:00→15:20)
--- NOTE | 2024-09-22 15:00 | P.OP_ITS ---
Operative Note Operative Note Date of Service: 09/22/24 Narrative: After the patient was identified as Mona Garland and her right knee was initialed by myself they were brought to the operating room where general anesthesia was induced by the anesthesiologist in routine fashion. The patient was given 2 g of IV Ancef for infection prophylaxis. A formal time-out was completed. The patient's right lower extremity was prepped and draped in sterile fashion. Marcaine with epinephrine was injected into the planned incision sites as well as their right knee joint. A # 11 scalpel blade was used to make an anterolateral portal 1 cm proximal to the joint line and 1 cm lateral to the patellar tendon. Blunt trocar technique was used into the suprapatellar pouch with the knee in extension. Diagnostic arthroscopy showed multiple bands of thickened plica which would be excised at the end of the procedure. There were no loose bodies or abnormalities found in either the medial or lateral gutters. There were diffuse grades 1 and 2 degenerative changes of the undersurface of the patella as well as grades 1 and 2 degenerative changes of the trochlear groove. The patient's knee was flexed to 45 degrees and a valgus force was placed upon it. The medial compartment was entered. An anteromedial portal was made 1 cm proximal to the joint line and 1 cm medial to the patellar tendon. Probing of the medial meniscus showed no evidence of medial meniscus tearing. There were minimal degenerative changes of the medial femoral condyle and medial tibial plateau. The patient's knee was then placed into a neutral position. There was no injury to the anterior cruciate ligament. The patient's knee was then placed into the figure of 4 position and the lateral compartment was entered. There were minimal degenerative changes of the lateral femoral condyle and lateral tibial plateau. There was a radial tear of the anterior horn of the lateral meniscus. A partial lateral meniscectomy was performed using the arthroscopic shaver. Following the partial meniscectomy the remainder of the meniscus tissue was stable. The patient's knee was once again brought into extension and the suprapatellar pouch was entered. The arthroscopic shaver and the ArthroCare Wand were used to excise the thickened bands of plica. The undersurface of the patella was then made smooth using the arthroscopic shaver. The articular surface of the trochlear groove was already smooth so no martín droplasty was indicated. The knee joint was irrigated and then drained. All arthroscopic instruments were removed. The 2 portals were closed with 3-0 nylon interrupted suture. The knee joint was injected with Marcaine. Dry sterile dressing and Lavon bandages were placed over the patient's knee. The patient was awoken and extubated in the operating room. They were transferred to the recovery room in stable condition.
[2024-09-22] MEDS: cefTRIAXone sodium 1 GM VIAL IVPUSH (15:21)
[2024-09-22] MEDS: oxyCODONE HCl Immed Release 5 MG TABLET PO (15:30)
== END 2024-09-22 16:14 | disposition home or self-care (01) ==
PROVIDERS: PCP Internal Medicine; Visit Provider Orthopaedic Surgery
PROC: (CPT 29870; principal; 2024-09-22 13:30)
DX: S83.281A Other tear of lateral meniscus, current injury, right knee, initial encounter (principal); M67.51 Plica syndrome, right knee; M25.561 Pain in right knee; M23.51 Chronic instability of knee, right knee; M17.11 Unilateral primary osteoarthritis, right knee; X58.XXXA Exposure to other specified factors, initial encounter; Y93.9 Activity, unspecified; Y92.9 Unspecified place or not applicable; Y99.9 Unspecified external cause status; I10 Essential (primary) hypertension; I45.10 Unspecified right bundle-branch block; J45.909 Unspecified asthma, uncomplicated; E55.9 Vitamin D deficiency, unspecified; F33.0 Major depressive disorder, recurrent, mild; F41.1 Generalized anxiety disorder; H81.09 Meniere's disease, unspecified ear; Z91.81 History of falling; M79.7 Fibromyalgia; G47.33 Obstructive sleep apnea (adult) (pediatric); E66.01 Morbid (severe) obesity due to excess calories; Z68.41 Body mass index [BMI] 40.0-44.9, adult; Z79.51 Long term (current) use of inhaled steroids; Z79.899 Other long term (current) drug therapy; Z88.8 Allergy status to other drugs, medicaments and biological substances; Z91.041 Radiographic dye allergy status; Z56.0 Unemployment, unspecified
CPT/HCPCS: 29881; J0131; J0171; J0690; J0696; J1100; J2003; J2250; J2405; J2704; J2795; J3010

== ENCOUNTER → 2024-09-22 11:22 | Outpatient (BNV) | payer OTHER, SELFPAY | PROVIDERS: PCP Internal Medicine; Visit Provider Orthopaedic Surgery | DX: S83.281A Other tear of lateral meniscus, current injury, right knee, initial encounter (principal) | CPT/HCPCS: 29881 ==

== ENCOUNTER 2024-09-27 11:00 | Outpatient (AMB) | payer OTHER, SELFPAY ==
--- NOTE | 2024-09-27 11:05 | A.OFFPC_ITS ---
Vital Signs 09/27/24 11:14 Height 5 ft 6 in Weight 236 lb 4 oz BMI 38.1 BP 106/66 Blood Pressure Location Rt brachial Position Sitting Respiration 14 Pulse 75 Pulse Source Pulse Oximeter Temp 98.3 F Temp Source Oral Pulse Oximetry (%) 98 Oxygen Delivery Method Room Air Intake Visit Reasons: labs and meds Intake Note: Labs and medication follow up Piece Maker Required: Yes Piece Maker Language: Application Packager Name: [id number] Allergies Iodinated Contrast Media (IV CONTRAST) Allergy (Severe, Verified 09/27/24 11:10) ANAPHYLAXIS cyclobenzaprine (From FLEXERIL) Allergy (Intermediate, Verified 09/27/24 11:10) NUMBNESS gadobutrol (From GADAVIST) Allergy (Intermediate, Verified 09/27/24 11:10) DIFFICULTY BREATHING perfume (PERFUME) Allergy (Intermediate, Verified 09/27/24 11:10) TRIGGERS ASTHMA prednisone Allergy (Intermediate, Verified 09/27/24 11:10) swelling fish derived Allergy (Unknown, Verified 09/27/24 11:10) Swelling nuts Adverse Reaction (Uncoded 09/27/24 11:10) Itching Medication List - Last Reconciled 09/27/24 by Keyla Ac PA-C albuterol sulfate 2.5 mg (3 mL) inhalation Q4H PRN 30 days albuterol sulfate 90 mcg/actuation 2 inhalations inhalation Q6H PRN 30 days azelastine 2 sprays intranasal BID 30 days cholecalciferol (vitamin D3) 50 mcg PO DAILY 90 days clonazepam 1 mg PO BID PRN commode As directed esomeprazole magnesium 40 mg PO DAILY fluticasone propionate 50 mcg/actuation (Flonase Allergy Relief) 1 spray intranasal DAILY 30 days wumvaxuvsrp-dqixmozqg-trjtdqfj 200-62.5-25 mcg (Trelegy Ellipta) 1 inh inhalation DAILY 30 days hydrochlorothiazide 25 mg PO QAM hydroxyzine HCl 50 mg PO BID linaclotide (Linzess) 72 mcg PO QAM montelukast 10 mg PO DAILY nebulizers (AeroEclipse II Nebulizer) As directed oxymetazoline 0.05% (Afrin (oxymetazoline)) 2 sprays intranasal Q12H PRN 5 days pregabalin (Lyrica) 200 mg PO BID 30 days pregabalin 150 mg PO BID Qsymia 3.75-23 mg ER (phentermine-topiramate) 1 capsule in the morning for 2 weeks, if no side effects, increase to 2 tablets orally daily; 30 days NS Shower Chair As directed sucralfate (Carafate) 2 grams (2 x 1 gram) PO QNOON tiotropium bromide 2.5 mcg/actuation (Spiriva Respimat) 2 puffs PO DAILY tramadol 50 mg PO Q6H PRN 30 days walker As directed zolpidem 10 mg PO BEDTIME PRN Tobacco use date assessed: 09/27/24 Dental Screening Dental Screen Date: 06/14/24 HPI labs and meds HPI Details Patient is a 44-year-old female with a significant medical history asthma, obstructive sleep apnea, htn, morbid obesity, anxiety, depression, frequent falls, fibromyalgia, Meniere's disease, polyarthralgia presenting today for a follow up. phone watch and clock maker and repairer Park used today HEENT: She states today that for the last couple of months she has noticed left lower eyelid twitching. States that it switches regularly and sometimes it feels like there is a pain or pressure on the inside of her eye. No vision changes. No difficulty moving her eye. She has not seen an vacuum cleaner mechanic in many years. No headaches, nausea or vomiting. CV: Blood pressure today in the office is 106/66. She is on hctz 25 mg. Psych: She follows with Mike betancourt. She is currently on ambien, clonazepam. She feels that her anxiety and depression are currently stable but attributes this to her pain. GI: Has an appointment in September with Gastroenterology for her gastritis/GERD and nausea. She was recently switched Nexium as she did not have significant improvement with pantoprazole or omeprazole. She does believe that this is a little bit better. Rheum: followed with rheumatology and was told it was it is fibromyalgia and that beyond taking Lyrica and tramadol as needed they would not be able to offer much support. tried cymbalta in the past but no improvement. we retried this and no improvement. Msk: following with ortho for right knee pain. States she had surgery recently and is feeling better. Her surgery was on Wednesday and she states that they did p rescriber oxycodone but she can not take this. It causes upset stomach. She has been using the tramadol more frequently. She is wondering if I can temporarily increase her prescription for a month or 2 to get her through the physical therapy and strengthening her knee. Endo: seeing endo for weightloss drugs. she paid for zepbound for a few months and it was helpful but cannot afford it. Pulm: asthma well controlled and cpap she does not like to use but we will use it a few times a week. Follows with [facility] pulmonology. Mammo: UTD, 12/27 Coordinate Measuring Equipment Operator: Requests a referral. Has a history of a partial hysterectomy Clonoscopy: booked in September with GI and plans to discuss colonoscopy [facility] Medical History (Updated 09/27/24 @ 11:40 by Keyla Ac PA-C) Tracheobronchitis Right knee pain Physical exam Skin lesion Hypertension Left foot pain Chronic cough Right elbow pain Morbid obesity Generalized anxiety disorder Asthma Hypovitaminosis D Mild recurrent major depression Pleuritic chest pain COVID-19 Breast pain, left Sinusitis Low back pain Polyarthralgia Ophthalmoplegic migraine Menieres disease Frequent falls RBBB (right bundle branch block) Leg edema Breast mass, right Left elbow pain Fibromyalgia Ankle pain, right Labial lesion Rectal bleeding H. pylori duodenitis Submandibular lymphadenopathy Chronic neck pain AIRAM (obstructive sleep apnea) Panic attacks Surgical History (Updated 09/27/24 @ 11:22 by Daisy Billings CMA) S/P arthroscopic surgery of right knee History of endoscopy History of colonoscopy History of cholecystectomy History of hysterectomy History of tubal ligation History of section History of carpal tunnel surgery of right wrist Family History Father Oral cancer Thyroid cancer Colon cancer Mother NIDDY (non-insulin dependent diabetes mellitus in young) Gastric ulcer Paternal Grandfather Colon cancer Paternal Uncle Colon cancer Other Family history of colon cancer in father Social History (Updated 09/27/24 @ 11:23 by Daisy Billings CMA) Housing: House Are you a primary career and transition teacher to a significant other at home: No Alcohol intake: never Patient Tobacco Use Status: Never used Tobacco e-Cigarette/Vaping Use: Never Used Second Hand Smoke Exposure: No service: No Current occupational status: unemployed Sexual orientation: Straight/Heterosexual Gender identity: Female Cognitive needs: No Hearing needs: No Vision needs: Yes Questionnaire Thrive Questionnaire Date Thrive assessed: 05/02/24 I am a: Patient What is your living situation today?: I have a steady place to live Within the past 12 months, did the food you bought not last and you didn't have the money to get more?: I choose not to answer this question Within the past 12 months, did you worry whether your food would run out before you got money to buy more?: I choose not to answer this question Do you have trouble paying for medicines?: I choose not to answer this question Do you have trouble getting transportation to medical appointments?: I choose not to answer this question Do you have trouble paying your heating and electricity bill?: I choose not to answer this question Do you have trouble taking care of your child, family member or friend?: I choose not to answer this question Do you have trouble with day-to-day activities such as bathing, preparing meals, shopping, managing finances, etc.?: Yes Are you currently unemployed and looking for a job?: I choose not to answer this question Are you interested in more education?: I choose not to answer this question Please select the resources that you would like help with: None Currently or been in a relationship where the following occur: No concerns reported THRIVE Score: 0 AUDIT C Alcohol Use Questionnaire (AUDIT-C) 1. How often do you have a drink containing alcohol?: Never 3. How often do you have six or more drinks on one occasion?: Never Total Score: 0 LALIT-7 AMB Questionnaire LALIT-7 Date LALIT - 7 assessed: 06/14/24 Source: Developed by Drs. Juarez Westfall, Suzie Delarosa, Cornelius Brown and colleagues, with an educational nella from [employer]. Physical exam (Primary Care) Vital Signs: Last Vital Signs Temp 98.3 F 09/27/24 11:14 Pulse 75 09/27/24 11:14 Resp 14 09/27/24 11:14 BP 106/66 09/27/24 11:14 Pulse Ox 98 09/27/24 11:14 Oxygen Delivery Method Room Air 09/27/24 11:14 BMI result Body Mass Index 38.1 Tobacco/Smoking Status: Tobacco use Status Tobacco use date assessed 09/27/24 09/27/24 11:18 Patient Tobacco Use Status Never used Tobacco 09/27/24 11:23 e-Cigarette/Vaping Use Never Used 09/27/24 11:23 Thrive Assessment: Date of Thrive Assessment Date Thrive assessed 05/02/24 09/27/24 11:06 Currently or been in a relationship where the following occur: No concerns reported Const Orientation/consciousness: patient oriented x3 HENMT Ears: hearing grossly normal bilaterally Face and sinus: Yes normal facial exam and Yes sinuses nontender Mouth: Normal oral and palatal mucosa present Throat: Yes posterior oropharynx normal Eyes General: appearance normal, both eyes and all related structures Visual Grimes: normal visual grimes by confrontation Periorbital: periorbital findings normal Eyelids: Yes eyelids normal Conjunctivae: conjunctivae normal Sclerae: sclerae normal Pupils: Equal, round and reactive pupils present EOM: EOMs intact bilaterally Neck Thyroid: Thyroid normal Lymphatic: no lymphadenopathy noted Resp Auscultation: clear to auscultation bilaterally Cardio Rate: regular rate Rhythm: regular rhythm Heart sounds: S1 normal heart sound present and S2 normal heart sound present GI Inspection: Yes normal to inspection Palpation (GI): Soft to palpation and Other GI palpation findings present (nontender, no cva tenderness) Auscultation: normoactive bowel sounds Rectal Exam - Female: deferred Skin General skin exam: no rashes or lesions noted Neuro General: patient oriented x3, gait normal and no focal motor deficits Cranial nerves: Yes Equal, round and reactive pupils present Results Reviewed Results Reviewed: Laboratory Tests 06/16/24 10:43 WBC 5.6 RBC 4.67 Hgb 14.1 Hct 41.8 Plt Count 331 Sodium 141 Chloride 107 Carbon Dioxide 27 Anion Gap 11 L BUN 12 Creatinine 0.62 Estimated GFR > 60 Fasting Glucose 98 Calcium 8.8 Total Bilirubin 0.4 AST 21 ALT 29 Alkaline Phosphatase 121 H Total Protein 7.7 Albumin 3.9 Triglycerides 134 Cholesterol 150 LDL Cholesterol, Calc 87 HDL Cholesterol 37 L 25-OH Vitamin D Total 15.2 L Coding Level of Care Code Est Pt Level 4 (47007) Complex EM visit Add On G2211 Diagnoses Fibromyalgia M79.7 Hypovitaminosis D E55.9 Primary hypertension I10 Hypertension type: primary hypertension Morbid obesity E66.01 Left eye pain H57.12 Assessment & Plan Assessment & Plan (1) Fibromyalgia: Code(s): M79.7 - Fibromyalgia Category: Medical Plan: Continue the Lyrica 200 mg twice a day We will increase to prescription of tramadol to 50 mg b.i.d.. (2) Hypovitaminosis D: Code(s): E55.9 - Vitamin D deficiency, unspecified Category: Medical Plan: We will check vitamin-D (3) Hypertension: Code(s): I10 - Essential (primary) hypertension Category: Medical Qualifiers: Hypertension type: primary hypertension Qualified Code(s): I10 - Essential (primary) hypertension Plan: WNL. Continue current regimen (4) Morbid obesity: Code(s): E66.01 - Morbid (severe) obesity due to excess calories Category: Medical Plan: Referral to weight management (5) Left eye pain: Code(s): H57.12 - Ocular pain, left eye Category: Medical Plan: Referral to Ophthalmology. Phone number provided. Advised to seek emergent medical treatment should anything change or worsen. In regards to pain/vision Labs ordered for the twitching. Discussed that it could be related to stress/fatigue. Orders: Orders Magnesium Today E55.9 - Vitamin D deficiency, unspecified, E66.01 - Morbid (severe) obesity due to excess calories, H57.12 - Ocular pain, left eye, I10 - Essential (primary) hypertension, M79.7 - Fibromyalgia, R25.3 - Fasciculation IRON PROFILE Today E55.9 - Vitamin D deficiency, unspecified, E66.01 - Morbid (severe) obesity due to excess calories, H57.12 - Ocular pain, left eye, I10 - Essential (primary) hypertension, M79.7 - Fibromyalgia, R25.3 - Fasciculation Ferritin Today E55.9 - Vitamin D deficiency, unspecified, E66.01 - Morbid (severe) obesity due to excess calories, H57.12 - Ocular pain, left eye, I10 - Essential (primary) hypertension, M79.7 - Fibromyalgia, R25.3 - Fasciculation Complete Blood Count Auto Diff Today E55.9 - Vitamin D deficiency, unspecified, E66.01 - Morbid (severe) obesity due to excess calories, H57.12 - Ocular pain, left eye, I10 - Essential (primary) hypertension, M79.7 - Fibromyalgia, R25.3 - Fasciculation TSH reflex Free T4 Today E55.9 - Vitamin D deficiency, unspecified, E66.01 - Morbid (severe) obesity due to excess calories, H57.12 - Ocular pain, left eye, I10 - Essential (primary) hypertension, M79.7 - Fibromyalgia, R25.3 - Fasciculation Vitamin D 25-OH Total Today E55.9 - Vitamin D deficiency, unspecified, E66.01 - Morbid (severe) obesity due to excess calories, H57.12 - Ocular pain, left eye, I10 - Essential (primary) hypertension, M79.7 - Fibromyalgia, R25.3 - Fasciculation Basic Metabolic Panel Today E55.9 - Vitamin D deficiency, unspecified, E66.01 - Morbid (severe) obesity due to excess calories, H57.12 - Ocular pain, left eye, I10 - Essential (primary) hypertension, M79.7 - Fibromyalgia, R25.3 - Fasciculation Vitamin B12 and Folate Today E55.9 - Vitamin D deficiency, unspecified, E66.01 - Morbid (severe) obesity due to excess calories, H57.12 - Ocular pain, left eye, I10 - Essential (primary) hypertension, M79.7 - Fibromyalgia, R25.3 - Fasciculation Referrals Bariatric Surgery Referral E66.01 - Morbid (severe) obesity due to excess calories Ophthalmology Referral H57.12 - Ocular pain, left eye Medications: Changed From tramadol 50 mg PO Q6H 30 days PRN 20 tabs 0RF pain To tramadol 50 mg PO Q12H 60 tabs 0RF pain 30 days Discontinued pregabalin Discontinued Reason: Doctor's Order 150 mg PO BID 180 caps 0RF Patient Instructions: hoisting laborer: [phone]?Phone- COUNTERINTELLIGENCE SPECIALIST [phone]?Phone - eye and lasik [facility]
[2024-09-27 11:14] VITALS: BP 106/66; PULSE 75; RESP 14; TEMP 36.8; O2SAT 98; BMI 38.1
--- OUTSIDE RECORDS SUMMARY | 2024-09-27 13:05 | XMS_ITS | Encounter Summary ---
[facility] Address [address] [place] [address] Care Team Providers Care Engineering Department Chair Name Role Phone Trisha Aaron MD Primary Care Provider Mona bui Reason for Visit * Reason Onset Date Comments radiology 07/03/2022 MRI appt Encounter Details Date Type Department Care Team Description 07/03/2022 Telephone Radiology - [address] [address] Kenneth Bucio DPM radiology (MRI appt) Social [...] on filedocumented in this encounter Care Teams Engineering Department Chair Relationship Specialty Start Date End Date Trisha Aaron MD PCP - General Internal Medicine 12/31/17 documented as of this encounter
== END 2024-09-27 11:51 | disposition home or self-care (01) ==
LOC: HO.HMCFM 11:01
PROVIDERS: PCP Physician Assistant; Visit Provider Physician Assistant
DX: M79.7 Fibromyalgia (principal); E55.9 Vitamin D deficiency, unspecified; E66.01 Morbid (severe) obesity due to excess calories; Z68.38 Body mass index [BMI] 38.0-38.9, adult; I10 Essential (primary) hypertension; H57.12 Ocular pain, left eye

== ENCOUNTER → 2024-09-27 11:00 | Outpatient (BNVA) | payer OTHER, SELFPAY | PROVIDERS: PCP Physician Assistant; Visit Provider Physician Assistant | DX: I10 Essential (primary) hypertension (principal); G47.33 Obstructive sleep apnea (adult) (pediatric); J45.909 Unspecified asthma, uncomplicated; E66.01 Morbid (severe) obesity due to excess calories; F41.9 Anxiety disorder, unspecified; F32.A Depression, unspecified; M79.7 Fibromyalgia; K21.9 Gastro-esophageal reflux disease without esophagitis; M25.561 Pain in right knee; E55.9 Vitamin D deficiency, unspecified; H57.12 Ocular pain, left eye; Z91.81 History of falling | CPT/HCPCS: 99212 ==

== ENCOUNTER 2024-09-28 09:34 | Outpatient (REF) | payer OTHER, SELFPAY ==
[2024-09-28 09:48] LABS: MANUAL DIFF FLAG NO
[2024-09-28 10:21] LABS: Basophils Percent Auto 0.2 % (0-2); Eosinophils Absolute Auto 0.4 X10*3/uL (0.0-0.4); Eosinophils Percent Auto 4.9 % (0-4); Hematocrit 38.6 % (37.0-47.0); Hemoglobin 13.4 g/dl (12.0-16.0); Imm Gran Abs Auto 0.04 X10*3/uL (0.00-0.03); Imm Gran Pct Auto 0.5 % (0.0-0.4); Lymphocytes Absolute Auto 1.6 X10*3/uL (1.2-4.9); Lymphocytes Percent Auto 19.3 % (20-40); Mean Corpuscular HGB Conc 34.7 g/dl (31.0-35.0); Mean Corpuscular Volume 89.4 fL (80.0-98.0); Monocytes Absolute Auto 0.4 X10*3/uL (0.1-1.2); Monocytes Percent Auto 4.6 % (2-11); Neutrophils Absolute Auto 5.8 x10*3/uL (2.0-8.3); Neutrophils Percent Auto 70.5 % (45-73); Platelet Count 321 X10*3/uL (160-400); Red Blood Count 4.32 X10*6/uL (4.20-5.50); Red Cell Distribution Width 12.4 % (11.0-16.0); White Blood Count 8.2 X10*3/uL (4.8-10.8)
--- OUTSIDE RECORDS SUMMARY | 2024-09-28 10:39 | XMS_ITS | Clinical Summary ---
Author Organization [address] [place] [address] Address [address] [place] [address] Phone Care Team Providers Care Transport Nurse Name Role Phone Trisha Aaron MD Primary Care Provider [phone] Allergies Active Allergy Reactions Criticality Noted Date [...] with BMI of 4 0.0-44.9, adult ([facility] V24, [facility] V28) 01/27/2024 Asthma 04/06/2018 AIRAM (obstructive sleep apnea) 04/06/2018 Overview (01/27/2024): 10/2018 Home Sleep Study did not reveal sleep apnea or nocturnal hypoxia. Immunizations Name Administration Dates Next Due Influenza Quadravalent, MDCK , 0.5ml, preservative free (Flucelvax) 6mo and older 04/06/2018 Surgical History Surgery Date Site/Laterality Comments OTHER SURGICAL HISTORY PROCEDURE: [place] ARTHRS WRST EXC&/RPR TRIANG FIBROCART&/JOINT SECTION PROCEDURE: [...] Care Team (Late st Contact Info) Description 11/13/2024 2:15 PM EDT Office Visit Orthopedic Surgery - [place] [address] [facility] [address] [place] [address] Kenneth Bucio, DPGeovani [address] [facility] [address] [place] [address] Health Maintenance Due Date Last Done Comments [...] age to complete [place] [address] Care Teams Transport Nurse Relationship Specialty Start Date End Date Trisha Aaron MD 2 [facility] , [address] Physician Associ D/B/A: [facility] PCP - General Internal Medicine 12/31/17
[2024-09-28 10:53] LABS: Anion Gap 13 (12-20); Blood Urea Nitrogen 10 mg/dL (9-16); Calcium 9.7 mg/dL (8.4-10.2); Carbon Dioxide 26 mmol/L (22-29); Chloride 104 mmol/L (96-108); Estimated Glomerular Filt Rate > 60; Glucose Random 94 mg/dL (60-115); Iron 79 mcg/dL (30-160); Magnesium 2.1 mg/dL (1.6-2.6); Percent Iron Saturation 33 % (15-50); Potassium 3.7 mmol/L (3.3-5.1); Sodium 139 mmol/L (135-145); Total Iron Binding Capacity 242 mcg/dL (228-428); Unsaturated Iron Binding 163 ug/dL
[2024-09-28 11:11] LABS: Ferritin 254 ng/mL (10-250); TSH reflex Free T4 0.91 uIU/mL (0.32-4.0); Vitamin D 25-OH Total 21.7 ng/mL (>30)
[2024-09-28 11:17] LABS: Folate 11.9 ng/mL (> or = 4.0); Vitamin B12 275 pg/mL (200-900)
== END 2024-09-28 09:35 | disposition home or self-care (01) ==
LOC: HO.LAB 09:34
PROVIDERS: PCP Physician Assistant; Visit Provider Physician Assistant
DX: R25.3 Fasciculation (principal); M79.7 Fibromyalgia; H57.12 Ocular pain, left eye; E55.9 Vitamin D deficiency, unspecified; E66.01 Morbid (severe) obesity due to excess calories; I10 Essential (primary) hypertension
CPT/HCPCS: 36415; 80048; 82306; 82607; 82728; 82746; 83540; 83735; 84443; 85025

== ENCOUNTER 2024-10-05 13:29 | Outpatient (AMB) | payer OTHER, SELFPAY ==
[2024-10-05 13:35] VITALS: BMI 38.1
--- NOTE | 2024-10-05 13:35 | A.OFFVIS_ITS ---
Vital Signs 10/05/24 13:35 Height 5 ft 6 in Weight 236 lb 4 oz BMI 38.1 Intake Visit Reasons: PO-Rt Knee 09/22/24 Intake Note: Mona is a 44 year old female who presents today for her first post-operative visit after undergoing a right knee arthroscopy on 09/22/24. She reports mild intermittent discomfort in her right knee. She does take tramadol as needed. She denies any fevers or chills. Manager Research And Development Required: Yes Manager Research And Development Language: Softball Core Molder Services: Manager Research And Development Present Manager Research And Development Name: MekhishanarodyELISSA/DAINA Allergies Iodinated Contrast Media (IV CONTRAST) Allergy (Severe, Verified 10/05/24 13:35) ANAPHYLAXIS cyclobenzaprine (From FLEXERIL) Allergy (Intermediate, Verified 10/05/24 13:35) NUMBNESS gadobutrol (From GADAVIST) Allergy (Intermediate, Verified 10/05/24 13:35) DIFFICULTY BREATHING perfume (PERFUME) Allergy (Intermediate, Verified 10/05/24 13:35) TRIGGERS ASTHMA prednisone Allergy (Intermediate, Verified 10/05/24 13:35) swelling fish derived Allergy (Unknown, Verified 10/05/24 13:35) Swelling nuts Adverse Reaction (Uncoded 10/05/24 13:35) Itching Medication List - Last Reconciled 10/05/24 by Rosendo Scanlon MD albuterol sulfate 2.5 mg (3 mL) inhalation Q4H PRN 30 days albuterol sulfate 90 mcg/actuation 2 inhalations inhalation Q6H PRN 30 days azelastine 2 sprays intranasal BID 30 days cholecalciferol (vitamin D3) 50 mcg PO DAILY 90 days clonazepam 1 mg PO BID PRN commode As directed esomeprazole magnesium 40 mg PO DAILY fluticasone propionate 50 mcg/actuation (Flonase Allergy Relief) 1 spray intranasal DAILY 30 days ueqvviznhmy-edmryyxrd-oxctujoc 200-62.5-25 mcg (Trelegy Ellipta) 1 inh inhalation DAILY 30 days hydrochlorothiazide 25 mg PO QAM hydroxyzine HCl 50 mg PO BID linaclotide (Linzess) 72 mcg PO QAM montelukast 10 mg PO DAILY nebulizers (AeroEclipse II Nebulizer) As directed oxymetazoline 0.05% (Afrin (oxymetazoline)) 2 sprays intranasal Q12H PRN 5 days pregabalin (Lyrica) 200 mg PO BID 30 days Qsymia 3.75-23 mg ER (phentermine-topiramate) 1 capsule in the morning for 2 weeks, if no side effects, increase to 2 tablets orally daily; 30 days NS Shower Chair As directed sucralfate (Carafate) 2 grams (2 x 1 gram) PO QNOON tiotropium bromide 2.5 mcg/actuation (Spiriva Respimat) 2 puffs PO DAILY tramadol 50 mg PO Q12H 30 days walker As directed zolpidem 10 mg PO BEDTIME PRN PFSH Medical History (Updated 10/05/24 @ 13:53 by Rosendo Scanlon MD) Right knee pain Tracheobronchitis Physical exam Skin lesion Hypertension Left foot pain Chronic cough Right elbow pain Morbid obesity Generalized anxiety disorder Asthma Hypovitaminosis D Mild recurrent major depression Pleuritic chest pain COVID-19 Breast pain, left Sinusitis Low back pain Polyarthralgia Ophthalmoplegic migraine Menieres disease Frequent falls RBBB (right bundle branch block) Leg edema Breast mass, right Left elbow pain Fibromyalgia Ankle pain, right Labial lesion Rectal bleeding H. pylori duodenitis Submandibular lymphadenopathy Chronic neck pain AIRAM (obstructive sleep apnea) Panic attacks Surgical History (Updated 09/27/24 @ 11:22 by Daisy Billings CMA) S/P arthroscopic surgery of right knee History of endoscopy History of colonoscopy History of cholecystectomy History of hysterectomy History of tubal ligation History of section History of carpal tunnel surgery of right wrist Family History Father Oral cancer Thyroid cancer Colon cancer Mother NIDDY (non-insulin dependent diabetes mellitus in young) Gastric ulcer Paternal Grandfather Colon cancer Paternal Uncle Colon cancer Other Family history of colon cancer in father Social History (Updated 09/27/24 @ 11:23 by Daisy Billings CMA) Housing: House Are you a primary direct care worker to a significant other at home: No Alcohol intake: never Patient Tobacco Use Status: Never used Tobacco e-Cigarette/Vaping Use: Never Used Second Hand Smoke Exposure: No service: No Current occupational status: unemployed Sexual orientation: Straight/Heterosexual Gender identity: Female Cognitive needs: No Hearing needs: No Vision needs: Yes Physical Exam Vital Signs: BMI result Body Mass Index 38.1 Extrem Other: Right knee examination shows that the surgical incisions are healing well, no erythema, minimal discomfort with range of motion Assessment & Plan Assessment & Plan (1) Right knee pain: Code(s): M25.561 - Pain in right knee Category: Medical Plan Ms. Trip Garland is doing very well after undergoing right knee arthroscopic surgery on 09/22/2024. Her sutures were removed and Steri-Strips placed over her incisions. She will gradually progress to activities as tolerated. She will contact me prior to her follow-up appointment in 2 months should any questions or concerns arise. Feel free to call me at any time should questions regarding her orthopedic management arise. Coding Level of Care Code Global (96255) Diagnoses Right knee pain M25.561
--- OUTSIDE RECORDS SUMMARY | 2024-10-05 13:37 | XMS_ITS | Clinical Summary ---
Author Organization [address] [place] [address] Address [address] [place] [address] Phone Care Team Providers Care Cage Clerk Name Role Phone Trisha Aaron MD Primary Care Provider [phone] Allergies Active Allergy Reactions Criticality Noted Date [...] obesity with BMI of 4 0.0-44.9, adult ([facility] V24, [facility] V28) 01/27/2024 Asthma 04/06/2018 AIRAM (obstructive sleep apnea) 04/06/2018 Overview (01/27/2024): 10/2018 Home Sleep Study did not reveal sleep apnea or nocturnal hypoxia. Immunizations Name Administration Dates Next Due Influenza Quadravalent, MDCK , 0.5ml, preservative free (Flucelvax) 6mo and older 04/06/2018 Surgical History Surgery Date Site/Laterality Comments OTHER SURGICAL HISTORY PROCEDURE: [place] ARTHRS WRST EXC&/RPR TRIANG FIBROCART&/JOINT SECTION PROCEDURE: [...] PM EDT Office Visit Orthopedic Surgery - [place] [address] [facility] [address] [place] [address] Kenneth Bucio, DPGeovani [address] [facility] [address] [place] [address] Health Maintenance Due Date Last Done Comments [...] complete this topic Insurance PLAN Care Teams Cage Clerk Relationship Specialty Start Date End Date Trisha Aaron MD 2 [facility] , [address] Physician Associ D/B/A: [facility] PCP - General Internal Medicine 12/31/17
== END 2024-10-05 13:51 | disposition home or self-care (01) ==
LOC: HO.HOS 13:30
PROVIDERS: PCP Internal Medicine; Visit Provider Orthopaedic Surgery
DX: M25.561 Pain in right knee (principal)
CPT/HCPCS: 99024

== ENCOUNTER → 2024-10-05 13:29 | Outpatient (BNVA) | payer OTHER, SELFPAY | PROVIDERS: PCP Internal Medicine; Visit Provider Orthopaedic Surgery | DX: M25.561 Pain in right knee (principal); Z98.890 Other specified postprocedural states | CPT/HCPCS: 99212 ==

== ENCOUNTER 2024-10-09 15:16 | Outpatient (AMB) | payer OTHER, SELFPAY ==
[2024-10-09 15:24] VITALS: BP 124/72; PULSE 90; O2SAT 98; BMI 37.5
--- NOTE | 2024-10-09 15:24 | A.OFFVIS_ITS ---
Vital Signs 10/09/24 15:24 Height 5 ft 6 in Weight 232 lb 9.403 oz BMI 37.5 BP 124/72 Blood Pressure Location Lt brachial Position Sitting Pulse 90 Pulse Source Pulse Oximeter Pulse Oximetry (%) 98 Oxygen Delivery Method Room Air Intake Visit Reasons: asthma Allergies Iodinated Contrast Media (IV CONTRAST) Allergy (Severe, Verified 10/09/24 15:31) ANAPHYLAXIS cyclobenzaprine (From FLEXERIL) Allergy (Intermediate, Verified 10/09/24 15:31) NUMBNESS gadobutrol (From GADAVIST) Allergy (Intermediate, Verified 10/09/24 15:31) DIFFICULTY BREATHING perfume (PERFUME) Allergy (Intermediate, Verified 10/09/24 15:31) TRIGGERS ASTHMA prednisone Allergy (Intermediate, Verified 10/09/24 15:31) swelling fish derived Allergy (Unknown, Verified 10/09/24 15:31) Swelling nuts Adverse Reaction (Uncoded 10/05/24 13:35) Itching HPI Comments Details: The patient is a 44 year old woman with a known history of severe persistent asthma. She had been on Advair both the Diskus in the HFA but resulted in adverse side effects. She can no longer uses medicines. A distant Symbicort and she did start using the medicine but has not been filled at the pharmacy as of yet. She is also using Spiriva. For the last month and have her respiratory status has been getting worse. She has had to go to urgent care and also to the ER twice. She was placed on prednisone twice. She has no better. She still having exacerbations of the breathing specially at nighttime. She has severe spells resulting in nausea and dry heaves. She is very concerned for the fact that she is not getting any better. She also complains of significant postnasal drip that is aggravating her symptoms. She is not sure of his allergy related or cold related. She has not had any blood work or x-rays recently. She did have a sleep study although very limited because it had only recorded a small amount of information. She states that she still has daytime drowsiness. She feels that she has significant snoring. And she does get tired during the daytime with an elevated [place] score of 12/24. We did do allergy testing but she will only tested positive for mild allergy to cockroaches the rest of the rest study was negative and her eosinophils were normal. Therefore she doesn't qualify for biologics. In the meantime she continues to have daytime drowsiness. She did have a sleep study done demonstrating severe sleep apnea. At this point based on her symptoms the patient needs to start CPAP therapy RODERICK. Arrangements will be made with local [employer] company to start CPAP therapy at this time. 05/21/2022 the patient is here for a pulmonary follow-up visit. She was doing well until 2 days ago when she started developing worsening cough. At some point her coughing was so significant that she lost her balance and she fell and hurt her right elbow. She definitely at [facility] approve it. The patient has been using her inhalers only with partial resolution of the symptoms. She feels like she is getting a cold and a respiratory illness. In the meantime she does continue to use her CPAP every night. The CPAP therapy continues to be affecting beneficial. She has been using her respiratory medications as prescribed. She was supposed to be on Daliresp for some reason is no longer on her list of medications. Therefore I will responded to the pharmacy. I am hopeful that with the Daliresp we can prevent prednisone for the patient and decrease her exacerbations. 08/11/2022 the patient is here for pulmonary follow-up visit. The patient just recently got back from [place]. When she was there she was sick likely with viral syndrome. She was evaluated urgent care was given prednisone and also course of antibiotics. The patient does have significant cough variant asthma. She has been on a very aggressive regimen including Daliresp in addition to Symbicort and Spiriva. For her cough she does respond well to the Bentson I's a nd also cough syrup. Will provide her other medications she continues stable. Unfortunately they just get a diagnosis of cancer and her nephew of 3 years old. This caused significant stress and has caused her respiratory symptoms to worsen. Will continue to manage her symptoms. In the meantime she also complains of a pleuritic type of discomfort primarily in the the right lung on the back area specially with taking deep breath. Will go and repeat a chest x- ray to make sure. She will also request allergy testing done to be done again in order to see if she is a candidate for biologic therapy in order to improve her respiratory capacity and asthma treatment. The patient continues use her CPAP every night. CPAP therapy has been affecting beneficial. She does use it for more than 4 hours a night. She has been getting supplies readily. 11/06/2022 the patient is here for a pulmonary follow-up visit. She continues to struggle with productive cough and chronic bronchitis. She is on optimize respiratory therapy at this time. We did blood work assessing her for potential biologics that the patient does not qualify as she does have a new and eosinophil count and normal IgE level. Therefore, will go ahead and start her on azithromycin for chronic bronchitis. She can take that 3 times a week. The patient is also having issues with sinus congestion and chronic sinusitis. She has tolerated Sudafed in the past. We also talked about Neti pot a rinsing as lungs is with distilled water. In 4 2-4 weeks she can try using budesonide to help her with the inflammatory disease. 02/11/2023 the patient is here for pulmonary follow-up visit. The patient has been having a very difficult time of the month of January. Had significant chest tightness cough and wheezing. She did not want to go to the ER. Although around mid January her symptoms got worse with chest discomfort and she called the ambulance with a took her to [facility] because of the chest pain and the possibility of acute coronary syndrome. When she was there she did have blood work done which was all normal and she had an x-ray that was normal and she waited. However, after several hours awaiting she left against medical advice. She still struggling with a cough. Still productive in nature. She has been using her nebulizer frequently. Will go ahead and treat her for subacute bronchitis. If the patient is no better she can always call for further recommendations. 04/19/2023 the patient is here for a pulmonary follow-up visit. She is having hard time with her asthma. She has been using the Symbicort and the Spiriva. Although she does not feel like it is helping her much. She recently had an upper respiratory illness in image resulted in some swelling in the throat area. She had a hard time swallowing also breathing. She has a little better although she still feels that area abnormal. In addition to that she had a fall and she hurt her knee. She has been limping. She did have an x-ray of her knee and will be seeing orthopedic soon. will go ahead and optimize her respiratory therapy. 09/28/2023 the patient is here for a pulmonary follow-up visit. She still struggling with breathing. Has significant coughing spells and the coughing spells caused her to have worsening asthma symptoms and then she states that she develops like a panic attack. When that happens she is tends to freeze and then she needs help with getting her nebulizer treatments ready. Typically her nebulizer does help her but she does need to use it a few times a day. She has also using the Trelegy inhaler. We did talk about other alternatives including biologics although her IgE levels within normal limits and she does not have any evidence of any eosinophilia. I did give her information about test prior. The patient also complains of epigastric discomfort. She has had reflux in the past does not seem to have it as much anymore. Will go ahead and request a barium swallow in case she is having non acid reflux resulting in the coughing worsening asthma symptoms. In addition to that she was following the reflux diet and is going to be sleeping elevated. After the barium swallow patient should also have a GI evaluation. A referral was already placed. At this point will go ahead and start her on azithromycin that which would be a good promotility agent for her to help with GI issues in addition to improving the chronic bronchitis symptoms that she developing with a cough. She should have an EKG done specially since she takes an SSRI make sure that there has no significant QT abnormalities. The patient will go ahead and continue the medicine for about 6-8 weeks and follow-up at that point. If she has no better she can always call. We did give her information about the Tezspire that if she has no better that be the other option. 12/21/2023 the patient is here for a pulmonary follow-up visit. Since we last spoke the patient had an asthma attack while in [place]. She was taken to the hospital. they wanted to admit her to the hospital but she was concerned because of lack of insurance in the cost of her hospital bills. Therefore she left against medical advice. She continued prednisone taper along with her nebulizer treatments. She was able to get better. Subsequently she came back to the [facility]. She went on another trip. During that trip she did get a cold and she was concerned about her asthma that started acting up. Therefore, she did start some prednisone again for short course. She continues to go on and off prednisone unfortunately. She does have uncontrolled asthma. She has been medically optimize maximize maximize all her respiratory inhalers. At this point she is still having frequent flare-ups. Therefore, she will be a good candidate for biologics. I do believe that test viral be a good option for her. I am going to requested from her [employer]. The patient had been on azithromycin 3 times a week as well. Her EKG did show a right bundle branch block. This appears to be a chronic finding for her. She can come off the azithromycin anyways at this time. She continues use her CPAP. CPAP therapy has been affecting beneficial. She does try to use it more than 4 hours a night. Sometimes she falls off the routine. I did emphasize to her that is important for her to use it to minimize cardiovascular risk factors. 01/10/2024 the patient is here for sick visit. She was just here about a month ago. She states that that after the visit she went home she started coughing. She started developing significant chest tightness. She started using itwn-ubt-inlblpi medications. Ultimately she did have some leftover prednisone she took that with some partial relief. And then she did call the office and we did send her cough medication which she did take. Although has not been working for her. Her cough is pretty severe. His causing her to be up at nighttime. She states that she had never been this sick with her cough although she has had a chronic cough most of her life. Denies any fevers or chills. She does complaint of the headache because of all the coughing. Sometimes she does develop some stridor. I suspect that she has Will been cough. Although could also be a postviral bacterial pneumonia. Therefore going to treat her with combination antibiotics and also she will receive Solu-Medrol IM x1 and then going prednisone course. The patient will have a chest x-ray to this well. She will continue with a cough suppressant. The patient will start the therapy and will call if no better in 48 hours. 04/07/2024 the patient is here for a sick visit. She started developing a cough again. Productive in nature. Complains of sinus pressure. Also feels like her asthma is not controlled. She has been using her respiratory medicines. Right now she is not wheezing. Sounds to be more of sinusitis. She also was supposed to start Tezspire. She has not done as of now. She is going to go ahead and call to make sure that it scheduled in order for her to start her biologic therapy. Is the patient has no more she will call for further evaluation. For now she will continue with current respiratory regimen. 10/09/2024 the patient is here for pulmonary follow-up visit. Overall she is doing okay. Back in [place] which was visiting a few months ago she did have an asthma flare-up but she needed prednisone. She is now back to her baseline. She does use prednisone regularly because of her severe persistent asthma with frequent flare-ups. She was supposed to start Tezspire, but she became concerned with the potential biologic adverse effects. Prior to her starting the medication she had gotten sick and then after that she decided to hold off. She recently did have blood work demonstrating significant eosinophilia during the last CBC with differential that she had. Therefore, she is willing to try Fasenra. I do believe that explained to her that since it has been around for little bit longer be safe for her to use. It does not carry as much side effects either. She is willing to try specially with the ongoing asthma sy mptoms. She continues use her CPAP every night CPAP therapy has been affecting beneficial. [facility] Medical History (Updated 10/05/24 @ 13:53 by Rosendo Scanlon MD) Right knee pain Tracheobronchitis Physical exam Skin lesion Hypertension Left foot pain Chronic cough Right elbow pain Morbid obesity Generalized anxiety disorder Asthma Hypovitaminosis D Mild recurrent major depression Pleuritic chest pain COVID-19 Breast pain, left Sinusitis Low back pain Polyarthralgia Ophthalmoplegic migraine Menieres disease Frequent falls RBBB (right bundle branch block) Leg edema Breast mass, right Left elbow pain Fibromyalgia Ankle pain, right Labial lesion Rectal bleeding H. pylori duodenitis Submandibular lymphadenopathy Chronic neck pain AIRAM (obstructive sleep apnea) Panic attacks Surgical History (Updated 09/27/24 @ 11:22 by Daisy Billings CMA) S/P arthroscopic surgery of right knee History of endoscopy History of colonoscopy History of cholecystectomy History of hysterectomy History of tubal ligation History of section History of carpal tunnel surgery of right wrist Family History Father Oral cancer Thyroid cancer Colon cancer Mother NIDDY (non-insulin dependent diabetes mellitus in young) Gastric ulcer Paternal Grandfather Colon cancer Paternal Uncle Colon cancer Other Family history of colon cancer in father Social History Housing: House Are you a primary healthcare applications analyst to a significant other at home: No Alcohol intake: never Patient Tobacco Use Status: Never used Tobacco e-Cigarette/Vaping Use: Never Used Second Hand Smoke Exposure: No service: No Current occupational status: unemployed Sexual orientation: Straight/Heterosexual Gender identity: Female Cognitive needs: No Hearing needs: No Vision needs: Yes Review of Systems Const Denies chills, Reports daytime sleepiness, Reports difficulty sleeping, Denies fever(s), Reports headache(s), Reports malaise and Denies night sweats ENT Denies change in voice, Reports headache(s), Denies mouth pain, Reports nasal congestion, Reports nasal discharge, Denies sinus pain, Denies sinus pressure and Denies tongue swelling Card Denies chest pain, Denies dyspnea and Reports dyspnea on exertion Resp Reports change in phlegm color, Reports chest congestion, Reports cough, Reports hemoptysis, Reports excessive phlegm production, Denies dyspnea, Reports dyspnea on exertion and Reports wheezing GI Denies abdominal pain, Reports dyspepsia and Reports heartburn Musc Reports as per HPI, Reports abnormal gait, Reports arthralgias and Reports joint swelling Neuro Denies Neuro-related abnormal movements, Reports abnormal gait and Reports headache(s) Psych Denies no additional complaints Jacob/Lymph Denies easy bleeding and Denies lymphadenopathy Aller/Immun Denies tongue swelling and Reports wheezing Physical Exam Vital Signs: Last Vital Signs Pulse 90 10/09/24 15:24 BP 124/72 10/09/24 15:24 Pulse Ox 98 10/09/24 15:24 Oxygen Delivery Method Room Air 10/09/24 15:24 BMI result Body Mass Index 37.5 Const General: alert and awake Orientation/consciousness: patient oriented x3 HEENT Head: Yes normal to inspection Face and sinus: Yes sinuses nontender Mouth: oropharynx normal Throat: Yes posterior oropharynx normal Eyes General: appearance normal, both eyes and all related structures Neck Neck: Yes normal visual inspection, Yes no lymphadenopathy, Yes trachea midline and Yes no JVD Chest Chest palpation & inspection: normal inspection of the chest, normal palpation of entire chest wall and no tenderness Resp Effort & Inspection: normal respiratory effort, Actively coughing Quality: actively coughing and No prolonged expiratory phase Auscultation: no wheezes and diminished lung sounds Cardio Palpation: normal PMI Rate: regular rate Rhythm: regular rhythm Heart sounds: no gallops and no murmurs GI Palpation (GI): Soft to palpation, nontender, No hepatosplenomegaly present, no masses and Other GI palpation findings present (Abdomen is obese and protuberant) Auscultation: normal bowel sounds Skin General skin exam: no rashes or lesions noted Neuro General: patient oriented x3 and no focal motor deficits Cranial nerves: Yes CN's II-XII intact bilaterally Extrem General: Yes normal to inspection, Yes no clubbing, cyanosis or edema and Yes no calf tenderness Psych Speech and movement: Normal speech and movement present Affect: Anxious affect present Assessment & Plan Assessment & Plan (1) Asthma: Code(s): J45.909 - Unspecified asthma, uncomplicated Category: Medical Qualifiers: Asthma complication type: uncomplicated Asthma persistence: persistent Asthma severity: severe Qualified Code(s): J45.50 - Severe persistent asthma, u ncomplicated (2) AIRAM (obstructive sleep apnea): Comment: (mild AIRAM, AHI 10.1 on 08/22/17 sleep study) Code(s): G47.33 - Obstructive sleep apnea (adult) (pediatric) Category: Medical (3) Cough: Code(s): R05.9 - Cough, unspecified Category: Medical Qualifiers: Cough type: chronic Qualified Code(s): R05.3 - Chronic cough (4) Chronic allergic rhinitis: Code(s): J30.9 - Allergic rhinitis, unspecified Category: Medical (5) Chronic cough: Code(s): R05.3 - Chronic cough Category: Medical Plan continue Trelegy 200 daily continue Dairesp declined Tezspire start Fasenra continue nebulizer therapy cough medine: Tessalon pearls holding CPAP therapy, adjusted from 4-12 to 6-10 with ramp 4 consider barium swallow F/U 6 months Medications: Discontinued cholecalciferol (vitamin D3) Discontinued Reason: Doctor's Order 50 mcg PO DAILY 90 days 90 caps 3RF E55.9 - Vitamin D deficiency, unspecified Coding Level of Care Code Est Pt Level 4 (63563) Complex EM visit Add On G2211 Diagnoses Severe persistent asthma without complication J45.50 Asthma complication type: uncomplicated Asthma persistence: persistent Asthma severity: severe AIRAM (obstructive sleep apnea) G47.33 Chronic cough R05.3 Cough type: chronic Chronic allergic rhinitis J30.9 Chronic cough R05.3 Time Spent (min) 17
--- OUTSIDE RECORDS SUMMARY | 2024-10-09 15:35 | XMS_ITS | Clinical Summary ---
Author Organization [address] [place] [address] Address [address] [place] [address] Phone Care Team Providers Care Freelance Translator Name Role Phone Trisha Aaron MD Primary Care Provider [phone] Allergies Active Allergy Reactions Criticality Noted Date [...] obesity with BMI of 4 0.0-44.9, adult ([facility] V24, [facility] V28) 01/27/2024 Asthma 04/06/2018 AIRAM (obstructive sleep apnea) 04/06/2018 Overview (01/27/2024): 10/2018 Home Sleep Study did not reveal sleep apnea or nocturnal hypoxia. Immunizations Name Administration Dates Next Due Influenza Quadravalent, MDCK , 0.5ml, preservative free (Flucelvax) 6mo and older 04/06/2018 Surgical History Surgery Date Site/Laterality Comments OTHER SURGICAL HISTORY PROCEDURE: [place] ARTHRS WRST EXC&/RPR TRIANG FIBROCART&/JOINT SECTION PROCEDURE: [...] PM EDT Office Visit Orthopedic Surgery - [place] [address] [facility] [address] [place] [id number] Kenneth Bucio, DPGeovani [address] [facility] [address] [place] [address] Health Maintenance Due Date Last Done Comments Breast Cancer Screening 1979 DTaP,Tdap,and Td Vaccines (1 - Tdap) 1998 Hepatitis B Vaccines (1 of 3 - 19+ 3-dose series) 1998 Pneumococcal Vaccine: Pediatrics (0 to 5 Years) and At-Risk Patients (6 to 49 Years) (1 of 2 - PCV) 1998 Cervical Cancer Screening: Pap Smear 2000 Cholesterol Screening (Lipid Panel) 03/08/2022 Colorectal Cancer Screening: Colonoscopy 03/08/2022 Depression Screening 03/08/2022 HIV Screening 03/08/2022 Hepatitis C Screening 03/08/2022 Social Influencers of Health Screening 03/08/2022 COVID-19 Vaccine ( season) 2023 07/23/2020, 06/25/2020 Influenza Vaccine (#1) 2024 , 01/26/2023, 01/06/2022, Additional history exists HIB Vaccines Aged [...] complete this topic Insurance PLAN Care Teams Freelance Translator Relationship Specialty Start Date End Date Trisha Aaron MD 2 [facility] , [address] Physician Associ D/B/A: [facility] [place] PCP - General Internal Medicine 12/31/17
== END 2024-10-09 16:11 | disposition home or self-care (01) ==
LOC: HO.HPS 15:17
PROVIDERS: PCP Internal Medicine; Visit Provider Hospitalist
DX: J45.50 Severe persistent asthma, uncomplicated (principal); G47.33 Obstructive sleep apnea (adult) (pediatric); R05.3 Chronic cough; J30.9 Allergic rhinitis, unspecified
CPT/HCPCS: 99214; G2211

== ENCOUNTER → 2024-10-09 15:16 | Outpatient (BNVA) | payer OTHER, SELFPAY | PROVIDERS: PCP Internal Medicine; Visit Provider Hospitalist | DX: J45.50 Severe persistent asthma, uncomplicated (principal); R05.3 Chronic cough; J30.9 Allergic rhinitis, unspecified; G47.33 Obstructive sleep apnea (adult) (pediatric) | CPT/HCPCS: 99212 ==

== ENCOUNTER 2024-11-14 14:17 | Outpatient (AMB) | payer OTHER, SELFPAY ==
--- OUTSIDE RECORDS SUMMARY | 2024-11-11 23:59 | XMS_ITS | Continuity of Care Document ---
Author Organization [facility] Plastic Eron evangelist Address [address] [place] [address] [address] [place] [address]- Care Team Providers Care Actuarial Director Name Role Phone Not on Staff, PCP Primary Care Physician Unavail able Encounter [facility] Date(s): 10/12/24 - 11/11/24 [facility] Plastic Surgery [address] [place] [phone]- Attending Physician: Chandan Sagastume Admitting Physician: AdmtrChandan Referring Physician: Admtr ArBrittney Encounter Type: Triage Allergies, Adverse Reactions, Alerts Substance Criticality Severity Reaction Reaction Severity Status Flexeril Active Medications clonazePAM 1 mg oral tablet 0 Refills, Maintenance, 11/10/24 10:48:00 AM EDT, Partial fill upon patient request if the prescription is for a schedule II opioid drug. Start Date: 11/10/24 Status: Ordered Repeat number: 1 famotidine 20 mg oral tablet 20 mg, 1, tablet, By Mouth, 2 times a day, # 60 tablet, Refills 0, Tot. Refills 0, Maintenance, 05/20/24 2:00:00 PM EST, Route to Pharmacy Electronically, [facility]/pharmacy #[id number], Partial fill upon patientrequest if the prescription is for a schedule II opioid drug., 168, cm, 05/20/24 10:17:00 EST, Height, 118, kg, 05/20/24 10:17:00 EST, Dry Weight Start Date: 05/20/24 Status: Ordered Quantity: 60.0 Unit: tablet Repeat number: 1 FLUoxetine 20 mg oral capsule Refills 0, Maintenance, 11/10/24 10:48:00 AM EDT, Partial fill upon patient request if the prescription is for a schedule II opioid drug. Start Date: 11/10/24 Status: Ordered Repeat number: 1 fluticasone 50 mcg/inh nasal spray 0 Refills, Maintenance, 11/10/24 10:48:00 AM EDT, Partial fill upon patient request if the prescription is for a schedule II opioid drug. Start Date: 11/10/24 Status: Ordered Repeat number: 1 hydrochlorothiazide 25 mg oral tablet Refills 0, Maintenance, 11/10/24 10:48:00 AM EDT, Partial fill upon patient request if the prescription is for a schedule II opioid drug. Start Date: 11/10/24 Status: Ordered Repeat number: 1 montelukast 10 mg oral tablet Refills 0, Maintenance, 11/10/24 10:48:00 AM EDT, Partial fill upon patient request if the prescription is for a schedule II opioid drug. Start Date: 11/10/24 Status: Ordered Repeat number: 1 pregabalin 200 mg oral capsule 0 Refills, Maintenance, 11/10/24 10:48:00 AM EDT, Partial fill upon patient request if the prescription is for a schedule II opioid drug. Start Date: 11/10/24 Status: Ordered Repeat number: 1 Spiriva Respimat 60 ACT 2.5 mcg/inh inhalation aerosol 0 Refills, Maintenance, 11/10/24 10:48:00 AM EDT, Partial fill upon patient request if the prescription is for a schedule II opioid drug. Start Date: 11/10/24 Status: Ordered Repeat number: 1 sucralfate 1 gm oral tablet 1 Gm, 1, tablet, By Mouth, 2 times a day, # 180 tablet, Refills 0, Tot. Refills 0, Maintenance, 05/20/24 2:00:00 PM EST, Route to Pharmacy Electronically, [facility]/pharmacy #[id number], Partial fill upon patientrequest if the prescription is for a schedule II opioid drug., 168, cm, 05/20/24 10:17:00 EST, Height, 118, kg, 05/20/24 10:17:00 EST, Dry Weight Start Date: 05/20/24 Status: Ordered Quantity: 180.0 Unit: tablet Repeat number: 1 Symbicort 160mcg/4.5mcg Inhaler Refills 0, Maintenance, 11/10/24 10:48:00 AM EDT Start Date: 11/10/24 Status: Ordered Repeat number: 1 traMADol 50 mg oral tablet 0 Refills, Maintenance, 11/10/24 10:48:00 AM EDT, Partial fill upon patient request if the prescription is for a schedule II opioid drug. Start Date: 11/10/24 Status: Ordered Repeat number: 1 zolpidem 10 mg oral tablet 0 Refills, Maintenance, 11/10/24 10:48:00 AM EDT, Partial fill upon patient request if the prescription is for a schedule II opioid drug. Start Date: 11/10/24 Status: Ordered Repeat number: 1 Problem List Condition Confirmation Course Effective Dates Status Health St atus Informant Severe obesity Confirmed Active Patient Care team information Care Team Personnel Name: Not on Staff, PCP Position: S Physician (General Medicine) Member Role: PCP Care Team Related Persons Name: NEGAR NICOLE Insurance Providers Guarantor name: [employer] Health Plan Information #: 1 Payer: [employer] Payer Identifier: ROD Member Number: [id number] Group Number: [id number] Subscriber Identifier: [id number] Relationship to Subscriber: self Coverage Type: ROD Coverage Verification Date: ROD Telecom: ROD Address:
--- OUTSIDE RECORDS SUMMARY | 2024-11-13 14:15 | XMS_ITS | Encounter Summary ---
Author Organization [facility] Address [address] [place] [address] Care Team Providers Care Cover Stripper Name Role Phone Trisha Aaron MD Primary Care Provider [phone] Reason for Visit * Reason Comments Foot Pain Peroneal tendinitis of left lower extremityArthritis of left subtalar jointDisorder of ligament of ankle, leftLeft foot pain Encounter Details Date Type Department Care Team (Late st Contact Info) Description 11/13/2024 2:15 PM EDT Office Visit Orthopedic Surgery - [address] [phone] Kenneth Bucio DPM [address] [address] Peroneal tendinitis of left lower extremity (Primary Dx); Disorder of ligament of ankle, left; Arthritis of left subtalar joint; Capsulitis of left foot Social History Tobacco Use Types Packs/Day Years Used Date Smoking Tobacco: Never Smokeless Tobacco: Never Alcohol Use Standard Drinks/Week Comments No 0 (1 standard drink = 0.6 oz pur e alcohol) Comments Unknown Sex and Gender Information Value Date Recorded Sex Assigned at Not on file Legal Sex Female 10:45 PM EST Gender Identity Not on file Sexual Orientation Not on file documented as of this encounter Progress Notes * Kenneth Bucio DPM - 11/13/2024 2:15 PM EDTAssociated Order(s): Injection tendon or ligament Post-Procedure Diagnose(s): Capsulitis of left foot IDENTIFIER: Trip Garland is a 44 y.o. year old female who presents for consultation. CC: Left ankle pain HPI: 43-year-old female returns office for left ankle pain. Patient was given injection tendon sheath ofthe peroneal tendon during her previous visit notes that she had a tremendous amount of decrease inpain. Patient has been able to ambulate without the need for an ASO. Patient is happy with the progress she is making 11/13/2024: 44-year-old female returns office for left lateral foot and ankle pain. Patient notes that recently has been having some increased pain over the lateral side of the foot denying trauma to the area. Patient relates that she has been taking some anti-inflammatory medication without any success in resolving her pain level. Patient is here for evaluation treatment ROS: GENERAL: Pt denies nausea, fever, vomiting, chills, or shortness of breath. Pt in NAD. CARDIOLOGY: pt denies chest pain, palpitations LUNGS: pt denies shortness of breath MUSCULOSKELETAL: See HPI, otherwise no joint pain or swelling, back pain, or muscle pain. SKIN: see HPI, otherwise no lesions, rash or itching NEURO: No persistent headache, weakness or numbness The remainder of the review of systems is noncontributory PAST MEDICAL HISTORY: Patient Active Problem List Diagnosis Asthma Depression AIRAM (obstructive sleep apnea) Morbid obesity with BMI of 40.0-44.9, adult ([facility] V24, [facility] V28) SOCIAL HISTORY: Social History Tobacco Use Smoking status: Never Smokeless tobacco: Never Substance Use Topics Alcohol use: No ACTIVE MEDICATIONS: Outpatient Medications Marked as Taking for the 11/13/24 encounter (Office Visit) with Kenneth Bucio DPM Medication Sig Dispense Refill albuterol 2.5 mg /3 mL (0.083 %) nebulizer solution Take 1 Vial by nebulization every 4 hours as needed for Wheezing for up to 30 days. albuterol sulfate (ProAir RespiClick) 90 mcg/actuation aerosol powdr breath activated Inhale 2 Puffs into the lungs 4 times daily as needed. budesonide-formoteroL (SYMBICORT) 80-4.5 mcg/actuation inhaler Inhale 2 Puffs into the lungs every 12 hours. This medication has inhaler steroid: Rinse mouth with water and expectorate after each dose to prevent oral/esophageal candidiasis or fungal infection. cetirizine (ZyrTEC) 10 mg tablet TOME ABHISHEK TABLETA TODOS LOS D? citalopram (CeleXA) 10 mg tablet Take 10 mg by mouth daily. citalopram (CeleXA) 40 mg tablet Take 40 mg by mouth daily. clonazePAM (KlonoPIN) 0.5 mg tablet Take 0.5 mg by mouth 2 times daily as needed. diclofenac (VOLTAREN) 1 % topical gel APPLY 4 G TOPICALLY 3 TIMES DAILY. diclofenac (VOLTAREN) 75 mg EC tablet TAKE 1 TABLET WITH FOOD OR MILK TWICE A DAY ORALLY 30 fluocinonide (LIDEX) 0.05 % topical solution APLIQUE AL ?LYNDA AFECTADA DOS VECES AL D?A FOR 2 WEEKS BREAK 1 WEEK AND REPEAT CUANDO SEA NECESARIO fluticasone-salmeterol (ADVAIR DISKUS) 250-50 mcg/dose diskus inhaler Inhale 1 Puff into the lungs every 12 hours. HYDROcodone-acetaminophen (NORCO) 5-325 mg per tablet TOME ABHISHEK TABLETA POR V?A ORAL CADA OCHO HORASCUANDO SEA NECESARIO ketoconazole (NIZORAL) 2 % shampoo PLEASE SEE ATTACHED FOR DETAILED DIRECTIONS meloxicam (MOBIC) 15 mg tablet TOME ABHISHEK TABLETA TODOS LOS DAVALOS miscellaneous medical supply misc MISC. DEVICES (BED WEDGE) [facility] 1 Device by Does not apply route at bedtime. montelukast (SINGULAIR) 10 mg tablet Take 1 tablet (10 mg total) by mouth at bedtime. naproxen (NAPROSYN) 500 mg tablet Take 1 tablet (500 mg total) by mouth 2 (two) times a day. oxyCODONE-acetaminophen (PERCOCET) 5-325 mg per tablet Take 1 tablet by mouth every 4 hours as needed for Pain for up to 7 days. pantoprazole (PROTONIX) 40 mg packet Take by mouth. predniSONE (DELTASONE) 20 mg tablet TOME ABHISHEK TABLETA TODOS LOS D? tiotropium (Spiriva Respimat) 2.5 mcg/actuation inhalation spray Inhale 5 mcg into the lungs daily for 30 days. traZODone (DESYREL) 100 mg tablet Take 100 mg by mouth at bedtime. 150mg triamcinolone (KENALOG) 0.025 % cream APPLY TO AFFECTED AREA 3 TO 4 TIMES A DAY NEEDED FOR IRRITATION zolpidem (AMBIEN) 5 mg tablet Take by mouth at bedtime as needed. ALLERGIES: @ALL@ PHYSICAL EXAM: There were no vitals taken for this visit. PODIATRIC EXAMINATION: GENERAL: Patient appears well nourished, with NAD. VASCULAR: Dorsalis pedis pulses are 2/4 bilaterally and Posterior tibial pulses are 2/4 bilaterally. Capillary filling time within normal limits the digits. No pallor on elevation or rubor on dependency. Positive hair growth. No varicosities. Denies rest pain or claudication pain. NEUROLOGICAL: Sharp/dull sensation intact, protective sensation intact 10/10 with 5.07 semmes doroteo bilaterally, vibratory sensation with tuning fork intact to the tibial tuberosity. ORTHOPEDIC: Good muscle strength 5/5 of all flexors and extensors. Dorsi flexion of ankle ,10 degrees, plantar flexion WNL. No muscle atrophy. Pain on palpation along the peroneal tendon which is decreased since previous visit. Supinated foot to the left lower extremity on stance with increased pain on palpation of the lateral capsular tissue of the left foot near the fourth metatarsal cuboid area DERMATOLOGICAL:.No masses or skin lesions noted. Normal skin temperature, normal skin turgor. BIOMECHANICS: STJ ROM wnl, MTJ ROM wnl, 1st MPJ ROM wnl. Results for orders placed in visit on 07/29/22 MRI OF LEG JOINT / LOWER EXTREMITY JOINT NO CONTRAST Narrative History: Left ankle swelling and pain following trauma. MRI of the left ankle: A departmental standard ankle MRI protocol was used. FINDINGS: There is moderate degeneration in the articulation of the base of the 5th metatarsal with the cuboid. There is milder degeneration in the articulation with the 4th metatarsal base. There are no other appreciable degenerative changes. There is some indistinctness of the margins of the ATFL suggesting an old healed sprain. The gross anatomy is intact. The syndesmotic and other visualized ligaments are intact. There is some soft tissue edema around the peroneus longus and brevis tendons at and immediately distal to the lateral malleolus. The configuration is nonspecific. This could reflect peritendinitis. Otherwise the peroneus tendons are intact. Other visualized tendons including the Achilles tendon are intact. The plantar fascia is intact. There are no other significant bony signal abnormalities. The ankle mortise is intact. There is no evidence of osteochondral injury. There is no evidence on MRI of the talar fracture. Impression IMPRESSION: Degenerative changes in the 5th and to lesser extent 4th Lisfranc articulations. Probable peroneus longus and brevis peritendinitis. Probable old ATFL sprain. 5 IMPRESSION: 1. Peroneal tendinitis of left lower extremity 2. Disorder of ligament of ankle, left 3. Arthritis of left subtalar joint 4. Capsulitis of left foot PLAN: Pt was seen and examined, history reviewed. Patient notes that she has had a return of pain to the left lateral foot. Patient was not having asmuch pain to the peroneal tendon though she did have some tenderness to the area. Patient also noted that she has some pain over the lateral gutter near the subtalar joint. Patient's greatest amount of pain was over the lateral column where the capsular tissue extends. Patient was educated that thepositioning of her foot causes her to place greater pressure to the lateral column which is causingsome increased pressure type pain. Patient wanted to discuss surgical intervention today. Patient was educated that she may be having some tendinitis within the peroneal tendons secondary to overloading the lateral side of the foot and may require tenodesis and tightening of the peroneal tendons. Patient showed verbal adequate understanding and understands the postoperative weightbearing requirements. Patient will return in 2 weeks for recheck and possible booking for surgery Patient being treated for left lateral foot pain Conservative treatment options discussed and the decision made to try an corticosteroid injection today. Risks and benefits explained to patient. Injection to the area was performed after written consent was obtained. Risks and benefits discussed in detail with patient and include but are not limited to risk of infection risk of recurrence risk of steroid flare. Injection given to the left midfoot of half cc 1% lidocaine half cc of Kenalog 40 Patient understands that the first three days status post injection, the site may feel sore. Patient is to ice and elevate during this time. Patient understands that the injection is to decrease inflammation and reduce flares. Patient understands that it is variable how long the injection lasts. All questions answered. Injection tendon or ligament Indications: pain Details: 25 G needle Medications: 0.5 mL lidocaine (PF) 1 %; 40 mg triamcinolone acetonide 40 mg/mL Informed Consent: Laterality: Left Kenneth Bucio DPM documented in this encounter Plan of Treatment Upcoming Encounters Date Type Department Care Team (Late st Contact Info) Description 11/27/2024 2:00 PM EDT Office Visit Orthopedic Surgery - [place] [address] [facility] [address] [place] [phone] Kenneth Bucio DPM 175 [facility] [place] [address] [place] [address] documented as of this encounter Procedures Procedure Name Priority Date/Time Associated Diagnosis Comments INJECTION TENDON OR LIGAMENT Routine 11/13/2024 2:15 PM EDT Capsulitis of left foot documented in this encounter Results * Injection tendon or ligament (11/13/2024 2:15 PM EDT) Narrative Kenneth Bucio DPM - 11/13/2024 2:15 PM EDT Kenneth Bucio DPM 11/13/2024 6:35 PM Injection tendon or ligament Indications: pain Details: 25 G needle Medications: 0.5 mL lidocaine (PF) 1 %; 40 mg triamcinolone acetonide 40 mg/mL Informed Consent: Laterality: Left us Kenneth Bucio DPM IN CLINIC/BEDSIDE ORDERABLE S Final Result documented in this encounter Visit Diagnoses Diagnosis Peroneal tendinitis of left lower extremity- Primary Disorder of ligament of ankle, left Arthritis of left subtalar joint Capsulitis of left foot documented in this encounter Administered Medications Inactive Administered Medications - up to 3 most recent administrations Medication Order MAR Action Action Date Dose Rate Site lidocaine (PF) (XYLOCAINE-MPF) 1 % injection 0.5 mL 0.5 mL, injection, Once PRN Procedure, Starting on Wed11/13/24 at 1415, For 1 doseIndications:Capsulitis of left foot Given 11/13/2024 2:15 PM EDT 0.5 mL triamcinolone acetonide (KENALOG-40) 40 mg/mL injection 40 mg 40 mg, intra-articular, Once PRN Procedure, Starting on Wed11/13/24 at 1415, For 1 doseIndications:Capsulitis of left foot Given 11/13/2024 2:15 PM EDT 40 mg documented in this encounter Care Teams Cover Stripper Relationship Specialty Start Date End Date Trisha Aaron MD 2 [facility] , [address] [facility] D/B/A: [facility] PCP - General Internal Medicine 12/31/17 documented as of this encounter
--- NOTE | 2024-11-14 14:23 | A.OFFVIS_ITS ---
Vital Signs 11/14/24 14:26 Height 5 ft 6 in Weight 224 lb 13.944 oz BMI 36.3 BP 122/57 L Blood Pressure Location Lt brachial Position Sitting Pulse 68 Intake Visit Reasons: 2m follow up Intake Note: Mona presents in the office as a 2 month follow up. CC: She states that her stomach is doing a lot better and she feels okay. Estate Planning Counselor Required: Yes Estate Planning Counselor Name: [id number] Philippe Allergies Iodinated Contrast Media (IV CONTRAST) Allergy (Severe, Verified 11/14/24 14:27) ANAPHYLAXIS cyclobenzaprine (From FLEXERIL) Allergy (Intermediate, Verified 11/14/24 14:27) NUMBNESS gadobutrol (From GADAVIST) Allergy (Intermediate, Verified 11/14/24 14:27) DIFFICULTY BREATHING perfume (PERFUME) Allergy (Intermediate, Verified 11/14/24 14:27) TRIGGERS ASTHMA prednisone Allergy (Intermediate, Verified 11/14/24 14:27) swelling fish derived Allergy (Unknown, Verified 11/14/24 14:27) Swelling nuts Adverse Reaction (Uncoded 11/14/24 14:27) Itching HPI HPI 2m follow up: Details: Assessment & Plan (1) H. pylori duodenitis: Comment: Treatment resistant due to patient's intolerance of antibiotics, Code(s): K29.80 - Duodenitis without bleeding; B96.81 - Helicobacter pylori [H. pylori] as the cause of diseases classified elsewhere Category: Medical (2) GERD (gastroesophageal reflux disease): Code(s): K21.9 - Gastro-esophageal reflux disease without esophagitis Category: Medical Qualifiers: Esophagitis presence: without esophagitis Qualified Code(s): K21.9 - Gastro-esophageal reflux disease without esophagitis (3) Chronic idiopathic constipation: Code(s): K59.04 - Chronic idiopathic constipation Category: Medical Plan [facility] #[id number] PT HAS BEEN LOST TO FOLLOW UP SINCE 2020 She was seen at the [facility] for N/V/D. 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 SO her carafate therapy lapsed. She has had nausea from most OTC CIC medications, that is why I had tried to progress to Linzess in the past. I will go back to this. Educated about chronic need for sucralfate r/t t he H pylori. She lsot about 70# from [facility] which she tolerated well but insurance did not cover. This was quite a long appointment because I had educate her about her chronic H pylori infection again and the need for continued follow-up. I also needed to research her ER visit to [facility] which was not readily available. ROV 4 weeks. Medications: New sucralfate (Carafate) 2 grams (2 x 1 gram) PO QNOON 60 tabs 6RF B96.81 - Helicobacter pylori [H. pylori] as the cause of diseases classified elsewhere, K21.9 - Gastro-esophageal reflux disease without esophagitis, K29.80 - Duodenitis without bleeding, K59.04 - Chronic idiopathic constipation esomeprazole magnesium 40 mg PO DAILY 30 caps 6RF B96.81 - Helicobacter pylori [H. pylori] as the cause of diseases classified elsewhere, K29.80 - Duodenitis without bleeding linaclotide (Linzess) 72 mcg PO QAM 30 caps 6RF K59.04 - Chronic idiopathic constipation Discontinued esomeprazole magnesium (Nexium) Discontinued Reason: Doctor's Order 20 mg PO DAILY 90 caps 3RF TODAY'S VISIT [facility] #[id number] The patient is a 44-year-old female presenting with chronic Helicobacter pylori infection, GERD, constipation, and hemorrhoids. She is well controlled and continues on her esomeprazole 40 mg, sucralfate and the Linzess 72 micro g. Di screpancies in her Esomeprazole dosage were addressed, attributed to possible clerical errors in her medication list. She received the esomeprazole, sucralfate and the Linzess 72 and they are working well for her. Her only problem now is that her hemorrhoids are coming back aloe and are painful. She is educated not to strain it stooling, to consider utilizing ice packs or witch Jt soaks cloths to help soothe the hemorrhoids and I will send Proctosol cream. ROV 3 mos. [facility]LY [facility], 1928–1983 Medical History Right knee pain Tracheobronchitis Physical exam Skin lesion Hypertension Left foot pain Chronic cough Right elbow pain Morbid obesity Generalized anxiety disorder Asthma Hypovitaminosis D Mild recurrent major depression Pleuritic chest pain COVID-19 Breast pain, left Sinusitis Low back pain Polyarthralgia Ophthalmoplegic migraine Menieres disease Frequent falls RBBB (right bundle branch block) Leg edema Breast mass, right Left elbow pain Fibromyalgia Ankle pain, right Labial lesion Rectal bleeding H. pylori duodenitis Submandibular lymphadenopathy Chronic neck pain AIRAM (obstructive sleep apnea) Panic attacks Surgical History S/P arthroscopic surgery of right knee History of endoscopy History of colonoscopy History of cholecystectomy History of hysterectomy History of tubal ligation History of section History of carpal tunnel surgery of right wrist Family History Father Oral cancer Thyroid cancer Colon cancer Mother NIDDY (non-insulin dependent diabetes mellitus in young) Gastric ulcer Paternal Grandfather Colon cancer Paternal Uncle Colon cancer Other Family history of colon cancer in father Social History Housing: House Are you a primary child care center administrator to a significant other at home: No Alcohol intake: never Patient Tobacco Use Status: Never used Tobacco e-Cigarette/Vaping Use: Never Used Second Hand Smoke Exposure: No service: No Current occupational status: unemployed Sexual orientation: Straight/Heterosexual Gender identity: Female Cognitive needs: No Hearing needs: No Vision needs: Yes Review of Systems Const Denies fatigue, Denies fever(s), Denies night sweats, Denies poor appetite and Denies weight loss ENT Reports Normal hearing present, Denies dental pain, Denies dysphagia, Denies hearing loss, Denies mouth pain, Denies odynophagia, Denies throat swelling, Denies tongue swelling and Reports other (Dentition adequate) Card Reports no additional complaints Resp Reports no additional complaints GI Details: Painful hemorrhoid Denies abdominal pain, Denies melena, Denies bloating, Denies hematochezia, Reports constipation, Denies GI cramping, Denies dysphagia, Denies excessive flatus, Denies early satiety, Reports dyspepsia, Reports heartburn, Denies diarrhea, Denies nausea, Denies odynophagia, Denies vomiting and Denies hematemesis Skin/Breast Denies pruritus, Denies lesions, Denies rash and Denies jaundice Neuro Reports Normal hearing present and Denies Abnormal speech present Endo Denies fatigue Aller/Immun Denies throat swelling and Denies tongue swelling Physical Exam Vital Signs: Last Vital Signs Pulse 68 11/14/24 14:26 BP 122/57 L 11/14/24 14:26 BMI result Body Mass Index 36.3 Const General: cooperative, no acute distress, well developed and well groomed Nutritional Appearance: well nourished and obese Orientation/consciousness: oriented to person, oriented to place and oriented to time Limitations: language barrier HEENT Head: Yes normocephalic and Yes atraumatic Eyes General: appearance normal, both eyes and all related structures Pupils: Equal, round and reactive pupils present Neck Neck: Yes normal visual inspection and Yes no lymphadenopathy Thyroid: Thyroid normal Resp Effort & Inspection: normal respiratory effort and able to speak in complete sentences Auscultation: clear to auscultation bilaterally Cardio Rate: regular rate Rhythm: regular rhythm Heart sounds: Normal, physiologic split S2 sound present Peripheral pulses: radial pulses present and posterior tibial pulses present GI Inspection: No distended, Yes Abdominal panniculus present and Yes obesity Palpation (GI): Soft to palpation, nontender, no guarding, not rigid and No hepatosplenomegaly present Percussion: Yes normal to percussion Auscultation: normal bowel sounds Rectal Exam - Female: deferred Skin General skin exam: no rashes or lesions noted, turgor normal, skin not dry, no jaundice, No spider nevi and no striae Rashes: no rashes Nails: normal Neuro General: oriented to person, oriented to place and oriented to time Cranial nerves: Yes Equal, round and reactive pupils present and Yes Normal hearing present Speech: No Abnormal speech present Extrem General: Yes normal to inspection, No clubbing, No cyanosis and No edema Psych Appearance: grossly normal and well kempt Mental Status: mental status grossly normal Speech and movement: Normal speech and movement present Affect: normal affect Attitude: cooperative Thought process: Normal thought process present and not confabulating Thought content: Normal thought content present Insight: Limited insight present (Psych) Judgement: Limited judgement present (Psych) Assessment & Plan Assessment & Plan (1) Chronic idiopathic constipation: Code(s): K59.04 - Chronic idiopathic constipation Category: Medical (2) GERD (gastroesophageal reflux disease): Code(s): K21.9 - Gastro-esophageal reflux disease without esophagitis Category: Medical Qualifiers: Esophagitis presence: without esophagitis Qualified Code(s): K21.9 - Gastro-esophageal reflux disease without esophagitis (3) H. pylori duodenitis: Comment: Treatment resistant due to patient's intolerance of antibiotics, Code(s): K29.80 - Duodenitis without bleeding; B96.81 - Helicobacter pylori [H. pylori] as the cause of diseases classified elsewhere Category: Medical Plan The patient will continue her treatments, including Esomeprazole 40 mg, and sucralfate for GERD and chronic Helicobacter pylori and Linzess 72 micro g for constipation. Hemorrhoid management includes applying hemorrhoid cream, and employing ice packs or witch jt for additional relief. Surgical intervention remains an option if conservative treatments are ineffective. Medication dosage discrepancies require attention to ensure accuracy in her treatment. Continuous monitoring is planned, with a follow-up scheduled in three months to evaluate the patient's response to the current therapeutic plan. Return office visit in 3 months Medications: New hydrocortisone 2.5% (Proctosol HC) BE SURE TO INCLUDE RECTAL APPICATOR!! 1 appl ME BID 30 grams 6RF hemorrhoids K64.9 - Unspecified hemorrhoids esomeprazole magnesium 40 mg PO DAILY 30 caps 6RF K21.9 - Gastro-esophageal reflux disease without esophagitis Coding Level of Care Code Est Pt Level 3 (50004) Diagnoses Chronic idiopathic constipation K59.04 Gastroesophageal reflux disease without esophagitis K21.9 Esophagitis presence: without esophagitis H. pylori duodenitis K29.80; B96.81
[2024-11-14 14:26] VITALS: BP 122/57; PULSE 68; BMI 36.3
--- OUTSIDE RECORDS SUMMARY | 2024-11-14 15:12 | XMS_ITS | Encounter Summary ---
[facility] Organization [facility] Address [address] [place] [address] Care Team Providers Care Visual Education Director Name Role Phone Trisha Aaron MD Primary Care Provider Mona bui Reason for Visit * Reason Onset Date Comments radiology 07/03/2022 MRI appt Encounter Details Date Type Department Care Team Description 07/03/2022 Telephone Radiology - [address] [address] Kenneth Bucio DPM radiology (MRI appt) Social [...] on filedocumented in this encounter Care Teams Visual Education Director Relationship Specialty Start Date End Date Trisha Aaron MD PCP - General Internal Medicine 12/31/17 documented as of this encounter
== END 2024-11-14 15:06 | disposition home or self-care (01) ==
LOC: HO.HGI 14:18
PROVIDERS: PCP Physician Assistant; Visit Provider Nurse Practitioner
DX: K59.04 Chronic idiopathic constipation (principal); K21.9 Gastro-esophageal reflux disease without esophagitis; K29.80 Duodenitis without bleeding; B96.81 Helicobacter pylori [H. pylori] as the cause of diseases classified elsewhere
CPT/HCPCS: 99213

== ENCOUNTER → 2024-11-14 14:17 | Outpatient (BNVA) | payer OTHER, SELFPAY | PROVIDERS: PCP Physician Assistant; Visit Provider Nurse Practitioner | DX: K59.04 Chronic idiopathic constipation (principal); K29.80 Duodenitis without bleeding; B96.81 Helicobacter pylori [H. pylori] as the cause of diseases classified elsewhere; K21.9 Gastro-esophageal reflux disease without esophagitis; Z90.49 Acquired absence of other specified parts of digestive tract; Z98.890 Other specified postprocedural states | CPT/HCPCS: 99212 ==

== ENCOUNTER 2024-11-23 12:52 | Outpatient (AMB) | payer OTHER, SELFPAY ==
--- OUTSIDE RECORDS SUMMARY | 2024-11-17 23:59 | XMS_ITS | Continuity of Care Document ---
Author Organization [facility]ron evangelist Address [address] [place] [address]- Care Team Providers Care Physical Therapy Coordinator Name Role Phone Deandre Eden MD Primary Care Physician Encounter [facility] [place] Date(s): 11/10/24 - 11/17/24 [facility] [address] [place] [address]- Attending Physician: Deandre Eden MD Referring Physician: Dorcas MCCULLOUGH, Otoniel Peterson Encounter Type: Office Visit Allergies, Adverse Reactions, Alerts Substance Criticality Severity [...] 2:00:00 PM EST, Route to Pharmacy Electronically, [facility]/pharmacy #[id number], Partial fill upon patientrequest if the [...] 2:00:00 PM EST, Route to Pharmacy Electronically, [facility]/pharmacy #[id number], Partial fill upon patientrequest if the [...] St [facility] Informant Severe obesity Confirmed Active Note * Julisa Montaño: PERFORM Event Display: Patient Education/Instruction Authored Date: [id number] Ambulatory Adult Visit Summary [facility] [address] [place] [address] Name: ROSA MOY : 1980?? Visit: 11/10/2024 10:06?? Ambulatory Visit Instructions ?? Your Care Team Primary Care Provider Not on Staff, PCP?? This Visit Provider Meek TROY, Deandre Melvin Vitals Signs Height: 168 cm Weight: 118 kg Body Mass Index:??41.81 kg/m2??Critical Body surface area: 2.35 What to do next Future Orders XR Finger 3rd Left Hand, Routine, Reason for Exam: Pain, Patient Does Not Need Assistance, PA/LAT/OBL, Once, *Est. 11/10/24, Order for Today Medications The list below reflects the information in our records and provided by you today along with any changes made during this visit. Please continue your medications until treatment is completed or stopped by your provider. If this is different from the information you have or there are other questions,please contact the prescribing provider. What How Much When Instructions Unchanged Budesonide-Formoterol (Symbicort 160mcg/ 4.5mcg Inhaler) Unchanged Clonazepam (clonazePAM 1 mg oral tablet) Unchanged Famotidine (famotidine 20 mg oral tablet) 1 tab(s) Oral Twice a day Unchanged Fluoxetine (FLUoxetine 20 mg oral capsule) Unchanged Fluticasone Nasal (fluticasone 50 mcg/ inh nasal spray) Unchanged Hydrochlorothiazide (hydrochlorothiazide 25 mg oral tablet) Unchanged Montelukast (montelukast 10 mg oral tablet) Unchanged Pregabalin (pregabalin 200 mg oral capsule) Unchanged Sucralfate (sucralfate 1 gm oral tablet) 1 tab(s) Oral Twice a day Unchanged Tiotropium (Spiriva Respimat 60 ACT 2.5 mcg/ inh inhalation aerosol) Unchanged Tramadol (traMADol 50 mg oral tablet) Unchanged Zolpidem (zolpidem 10 mg oral tablet) Medications and Immunizations Administered Medications Given During Visit No medications given during this visit.?? Allergies (NKA means No Known Allergies) Flexeril Common Emergency Awareness Tips IS IT A STROKE? Act FAST and Check for these signs: FACE Does the face look uneven? ARM Does one arm drift down? SPEECH Does their speech sound strange? TIME Call at any sign of stroke ?? Heart Attack Signs Chest discomfort: Most heart attacks involve discomfort in the center of the chest and lasts more than a few minutes, or goes away and comes back. It can feel like uncomfortable pressure, squeezing, fullness or pain. Discomfort in upper body: Symptoms can include pain or discomfort in one or both arms, back, neck, jaw or stomach. Shortness of breath: With or without discomfort. Other signs: Breaking out in a cold sweat, nausea, or lightheaded. Remember, MINUTES DO MATTER. If you experience any of these heart attack warning signs, call to get immediate medical attention! ?? Smoking can increase your chances of developing chronic health problems and can cause harmful effects to other family members in your house. If you smoke, you are strongly encouraged to quit. Please call [facility] at [phone] or [phone] ([phone]) or log in to [email or web address] for referrals to smoking cessation programs. ?? The National Suicide Prevention Hotline is available 26/10 if you or someone you know needs to find a reason to keep living. By calling 3-887-042-mBlox (5245) you'll be connected to a skilled, trained counselor at a crisis center in your area. [facility] [employer] Portal You can view and manage your care through the patient portal or by using a health care jose of your choosing. [employer] is a website that allows you to securely view your medical information including your hospital discharge summary, office visit summaries, medications and follow-up visits. You can also request appointments, renew medications, and request access to your medical information using a health care jose of your choosing, or just ask a question. You can enroll at [email or web address] or register during your next office visit. [facility], in keeping with [facility] guidance, no longer requires face masks for staff, patientsor visitors in most situations. Similiar to time spent indoors at other locations, there is the chance that you were exposed to repiratory viruses during your time with us (such as flu or COVID-19). If you develop symptoms concerning for a viral respiratory infection, please seek testing (and treatment if indicated) from your medical provider or home test kit. ?? Disclaimer: The information provided is of a general nature and is intended to be used in conjunction with the recommendations and advice of your health care practitioner. Every effort has been made to ensure that the information provided is accurate and complete at the time it is provided to you however, as your needs change, or, as new information becomes available, different or additional instructions may be required. ?? If you have questions, please consult with your primary care provider or pharmacist, as appropriate. This information is not intended to serve as substitution for assessment and evaluation by a qualified health care provider. If you do not have a primary care provider, you may find a [facility] provider by calling [facility] [employer] Link at [phone]. Patient Care team information Care Team Personnel Name: Deandre Eden MD Position: [facility] Physician - General Surgery Member Role: PCP Address: [address] [place] [address] Telecom: Care Team Related Persons Name: NEGAR NICOLE Insurance Providers Guarantor name: ROSA CAMPBELL HINTON Health Plan Information #: 1 Payer: [employer] Payer Identifier: NA Member Number: [id number] Group Number: [id number] Subscriber Identifier: [id number] Relationship to Subscriber: self Coverage Type: NA Coverage Verification Date: NA Telecom: NA Address: NA
--- NOTE | 2024-11-23 12:56 | MHC.PC.OV ---
Vital Signs 11/23/24 13:02 BP 110/64 Blood Pressure Location Lt brachial Position Sitting Respiration 14 Pulse 72 Pulse Source Pulse Oximeter Temp 98.5 F Temp Source Oral Pulse Oximetry (%) 95 Oxygen Delivery Method Room Air Intake Visit Reasons: Vein Burst Intake Note: Varicous veins on both legs. Having a lot of chest pain, cramping pain on left side of the head. Urge to urinate, urinary inconinience. Aircraft Pilot Required: Yes Aircraft Pilot Language: Panel Flow Machine Operator Name: [id number] Allergies Iodinated Contrast Media (IV CONTRAST) Allergy (Severe, Verified 11/23/24 13:00) ANAPHYLAXIS cyclobenzaprine (From FLEXERIL) Allergy (Intermediate, Verified 11/23/24 13:00) NUMBNESS gadobutrol (From GADAVIST) Allergy (Intermediate, Verified 11/23/24 13:00) DIFFICULTY BREATHING perfume (PERFUME) Allergy (Intermediate, Verified 11/23/24 13:00) TRIGGERS ASTHMA prednisone Allergy (Intermediate, Verified 11/23/24 13:00) swelling fish derived Allergy (Unknown, Verified 11/23/24 13:00) Swelling nuts Adverse Reaction (Uncoded 11/23/24 13:00) Itching Tobacco use date assessed: 09/27/24 Dental Screening Dental Screen Date: 06/14/24 HPI Vein Burst HPI Details Patient is a 44-year-old female with a significant medical history asthma, obstructive sleep apnea, htn, morbid obesity, anxiety, depression, frequent falls, fibromyalgia, Meniere's disease, polyarthralgia presenting today for a follow up w/ multiple 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 She states that she has been getting discomfort in the veins by the end of the day. States that they bulge. Would like this seen by vascular surgery. CV: Blood pressure today in the office is 110/64. She is on hctz 25 mg. Complains today of chest pain, sob, and palpitations. She states 2 weeks ago she noted intermittent palpitations lasting a few months with associated sob and chest tightness. No LOC. No dizziness, nausea, or vomiting. She states the other day she felt like she was going to with it but did not go to the ER. Currently has been asymptomatic for the last 2 days. States that her grandmother has a history of heart disease Psych: She follows with [facility]. She is currently on ambien, clonazepam. She feels that her anxiety and depression are currently stable but attributes this to her pain. GI: Has an appointment in September with Gastroenterology for her gastritis/GERD and nausea. She was recently switched Nexium as she did not have significant improvement with pantoprazole or omeprazole. She does believe that this is a little bit better. Rheum: followed with rheumatology and was told it was it is fibromyalgia and that beyond taking Lyrica and tramadol as needed they would not be able to offer much support. She wonders if the fibromyalgias causing her headaches. tried cymbalta in the past but no improvement. we retried this and no improvement. Endo: seeing endo for weightloss drugs. she paid for zepbound for a few months and it was helpful but cannot afford it. Pulm: asthma well controlled and cpap she does not like to use but we will use it a few times a week. Follows with [facility] pulmonology. Neuro: has a long standing hx of headaches and states that she has never had an MRI. She is overdue to see Ophthalmology. She did not see them from our last visit. The headaches would like they come from the back of the head/neck. She wonders if it is related to her fibromyalgia. They have been worse recently but so has her stress. No numbness, tingling or weakness that is persistent. She says that she sometimes gets symptoms of weakness and numbness with her fibromyalgia but this does not feel different than her baseline. Newly thing is that she has noticed an increase in headaches. Has never seen Neurology for this. Mammo: UTD, 12/27 REPLACED BY [facility] Medical History Right knee pain Tracheobronchitis Physical exam Skin lesion Hypertension Left foot pain Chronic cough Right elbow pain Morbid obesity Generalized anxiety disorder Asthma Hypovitaminosis D Mild recurrent major depression Pleuritic chest pain COVID-19 Breast pain, left Sinusitis Low back pain Polyarthralgia Ophthalmoplegic migraine Menieres disease Frequent falls RBBB (right bundle branch block) Leg edema Breast mass, right Left elbow pain Fibromyalgia Ankle pain, right Labial lesion Rectal bleeding H. pylori duodenitis Submandibular lymphadenopathy Chronic neck pain AIRAM (obstructive sleep apnea) Panic attacks Surgical History S/P arthroscopic surgery of right knee History of endoscopy History of colonoscopy History of cholecystectomy History of hysterectomy History of tubal ligation History of section History of carpal tunnel surgery of right wrist Family History Father Oral cancer Thyroid cancer Colon cancer Mother NIDDY (non-insulin dependent diabetes mellitus in young) Gastric ulcer Paternal Grandfather Colon cancer Paternal Uncle Colon cancer Other Family history of colon cancer in father Social History Housing: House Are you a primary director critical care to a significant other at home: No Alcohol intake: never Patient Tobacco Use Status: Never used Tobacco e-Cigarette/Vaping Use: Never Used Second Hand Smoke Exposure: No service: No Current occupational status: unemployed Sexual orientation: Straight/Heterosexual Gender identity: Female Cognitive needs: No Hearing needs: No Vision needs: Yes Questionnaire Thrive Questionnaire Date Thrive assessed: 05/02/24 I am a: Patient What is your living situation today?: I have a steady place to live Within the past 12 months, did the food you bought not last and you didn't have the money to get more?: I choose not to answer this question Within the past 12 months, did you worry whether your food would run out before you got money to buy more?: I choose not to answer this question Do you have trouble paying for medicines?: I choose not to answer this question Do you have trouble getting transportation to medical appointments?: I choose not to answer this question Do you have trouble paying your heating and electricity bill?: I choose not to answer this question Do you have trouble taking care of your child, family member or friend?: I choose not to answer this question Do you have trouble with day-to-day activities such as bathing, preparing meals, shopping, managing finances, etc.?: Yes Are you currently unemployed and looking for a job?: I choose not to answer this question Are you interested in more education?: I choose not to answer this question Please select the resources that you would like help with: None Currently or been in a relationship where the following occur: No concerns reported THRIVE Score: 0 LALIT-7 AMB Questionnaire LALIT-7 Date LALIT - 7 assessed: 06/14/24 Source: Developed by DrsJanes Westfall, Suzie Delarosa, Cornelius Brown and colleagues, with an educational nella from [employer]. Physical exam (Primary Care) Vital Signs: Last Vital Signs Temp 98.5 F 11/23/24 13:02 Pulse 72 11/23/24 13:02 Resp 14 11/23/24 13:02 BP 110/64 11/23/24 13:02 Pulse Ox 95 11/23/24 13:02 Oxygen Delivery Method Room Air 11/23/24 13:02 Tobacco/Smoking Status: Tobacco use Status Tobacco use date assessed 09/27/24 11/23/24 13:02 Patient Tobacco Use Status Never used Tobacco 11/23/24 13:02 e-Cigarette/Vaping Use Never Used 11/23/24 13:02 Thrive Assessment: Date of Thrive Assessment Date Thrive assessed 05/02/24 11/23/24 13:02 Currently or been in a relationship where the following occur: No concerns reported Const Orientation/consciousness: patient oriented x3 HENMT Ears: hearing grossly normal bilaterally Neck Thyroid: Thyroid normal Lymphatic: no lymphadenopathy noted Resp Auscultation: clear to auscultation bilaterally Cardio Rate: regular rate Rhythm: regular rhythm Heart sounds: S1 normal heart sound present and S2 normal heart sound present GI Inspection: Yes normal to inspection Palpation (GI): Soft to palpation and Other GI palpation findings present (nontender, no cva tenderness) Auscultation: normoactive bowel sounds Rectal Exam - Female: deferred Skin General skin exam: no rashes or lesions noted Neuro General: patient oriented x3, gait normal, no focal motor deficits and CN's II-XI intact bilaterally Motor exam (neuro): 5/5 motor strength present throughout Office Procedures EKG Details: EKG today is normal sinus rhythm at a rate of 70 beats per minute with nonspecific STT wave abnormalities. EKG consistent with right bundle branch block. Unchanged from previous study. EKG interpreted by myself and Dr. Livingston [id number], Complete Coding Level of Care Code Est Pt Level 5 (95923) Complex EM visit Add On G2211 Diagnoses Varicose veins of both lower extremities I83.93 Chest pain R07.9 Frequent headaches R51.9 Primary hypertension I10 Hypertension type: primary hypertension CPT Codes EKG - CPT: 00909-[id number], Complete ([id number]) Time Spent (min) 45 Comment Chart reviewed, note completion and direct patient care Assessment & Plan Assessment & Plan (1) Varicose veins of both lower extremities: Code(s): I83.93 - Asymptomatic varicose veins of bilateral lower extremities Category: Medical Plan: ref to vascular surgery (2) Chest pain: Code(s): R07.9 - Chest pain, unspecified Category: Medical Plan: currently asymptomatic. discussed signs and symptoms that would require emergent medical treatment stress test ordered echo ordered holter ordered labs cxr (3) Frequent headaches: Code(s): R51.9 - Headache, unspecified Category: Medical Plan: advised to see ophthalmology- phone number and address given again mri ordered due to increase in symptoms referral to neuro (4) Hypertension: Code(s): I10 - Essential (primary) hypertension Category: Medical Qualifiers: Hypertension type: primary hypertension Qualified Code(s): I10 - Essential (primary) hypertension Plan: wnl continue current plan Plan I spent 45 minutes on chart review, completing documentation, and direct patient care 1 month follow up or sooner prn Orders: Orders ECG holter monitor 24 hour Today R00.2 - Palpitations, R06.02 - Shortness of breath, R07.9 - Chest pain, unspecified MR head/brain wo con Today R51.9 - Headache, unspecified CA echo transthoracic complete Today R00.2 - Palpitations, R06.02 - Shortness of breath, R07.9 - Chest pain, unspecified CA stress test Today R00.2 - Palpitations, R06.02 - Shortness of breath, R07.9 - Chest pain, unspecified XR chest 2V Today R00.2 - Palpitations, R06.02 - Shortness of breath, R07.9 - Chest pain, unspecified Referrals Neurology Referral G43.B0 - Ophthalmoplegic migraine, not intractable, R51.9 - Headache, unspecified Vascular Surgery Referral I83.93 - Asymptomatic varicose veins of bilateral lower extremities
[2024-11-23 13:02] VITALS: BP 110/64; PULSE 72; RESP 14; TEMP 36.9; O2SAT 95
--- OUTSIDE RECORDS SUMMARY | 2024-11-23 13:11 | XMS_ITS | Clinical Summary ---
Author Organization [address] [place] [address] Address [address] [place] [address] Phone Care Team Providers Care Absorption Operator Name Role Phone Trisha Aaron MD Primary Care Provider [phone] Allergies Active Allergy Reactions Criticality Noted Date [...] not apply route at bedtime. 9 Active Hospital, Clinic, or Other Facility Administered Medication Ordered Dose Route Frequency Start Date End Date Status lidocaine (PF) (XYLOCAINE-MPF) 1 % injection 0.5 mLIndications:Capsul itis of left foot .5 mL inj Once PRN Procedure 11/13/2024 11/13/2024 Ended triamcinolone acetonide (KENALOG-40) 40 mg/mL injection 40 mgIndications:Capsul itis of left foot 40 mg IAtc Once PRN Procedure 11/13/2024 11/13/2024 Ended Active Problems Problem Noted Date Diagnosed Date Depression 01/27/2024 Morbid obesity with BMI of 4 0.0-44.9, adult (CMS/HCC V24, CMS/[facility] V28) 01/27/2024 Asthma 04/06/2018 AIRAM (obstructive sleep apnea) 04/06/2018 Overview (01/27/2024): 10/2018 Home Sleep Study did not reveal sleep apnea or nocturnal hypoxia. Encounters Date Type Department Care Team Description 11/13/2024 2:15 PM EDT Office Visit Orthopedic Surgery - [place] [address] [place] [phone] Kenneth Bucio, DPM Peroneal tendinitis of left lower extremity (Primary Dx); Disorder of ligament of ankle, left; Arthritis of left subtalar joint; Capsulitis of left foot from Last 3 Months Immunizations Name Administration Dates Next Due Influenza Quadravalent, MDCK , 0.5ml, preservative free (Flucelvax) 6mo and older 04/06/2018 Surgical History Surgery Date Site/Laterality Comments OTHER SURGICAL HISTORY PROCEDURE: [facility] WRST EXC&/RPR TRIANG FIBROCART&/JOINT SECTION PROCEDURE: [...] PM EDT Office Visit Orthopedic Surgery - [place] [id number] [address] [facility] [address] [place] [phone] Kenneth Bucio, FREDERIC [address] [address] Health Maintenance Due Date Last Done Comments [...] Panel) 03/08/2022 Colorectal Cancer Screening: Colonoscopy 03/08/2022 HIV Screening 03/08/2022 Hepatitis C Screening 03/08/2022 Social Influencers of Health Screening 03/08/2022 COVID-19 Vaccine (3 - season) 2023 07/23/2020, 06/25/2020 Depression Screening 04/05/2024 Influenza Vaccine (#1) 2024 4, 01/26/2023, 01/06/2022, Additional history exists HIB Vaccines [...] on patient's age to complete this topic Procedures Procedure Name Priority Date/Time Associated Diagnosis Comments INJECTION TENDON OR LIGAMENT Routine 11/13/2024 2:15 PM EDT Capsulitis of left foot from Last 3 Months Results * Injection tendon or ligament (11/13/2024 2:15 PM EDT) Narrative Kenneth Bucio DPM - 11/13/2024 2:15 PM EDT Kenneth Bucio DPM 11/13/2024 6:35 PM Injection tendon or ligament Indications: pain Details: 25 G needle Medications: 0.5 mL lidocaine (PF) 1 %; 40 mg triamcinolone acetonide 40 mg/mL Informed Consent: Laterality: Left us Kenneth Bucio DPM IN CLINIC/BEDSIDE ORDERABLE S Final Result from Last 3 Months Insurance PLAN Care Teams Absorption Operator Relationship Specialty Start Date End Date Trisha Aaron MD [address] [place] [address] , [address] [facility] D/B/A: [facility] PCP - General Internal Medicine 12/31/17
== END 2024-11-23 14:31 | disposition home or self-care (01) ==
LOC: HO.HMCFM 12:53
PROVIDERS: Visit Provider Physician Assistant
DX: I83.93 Asymptomatic varicose veins of bilateral lower extremities (principal); R07.9 Chest pain, unspecified; R51.9 Headache, unspecified; I10 Essential (primary) hypertension

== ENCOUNTER → 2024-11-23 12:52 | Outpatient (BNVA) | payer OTHER, SELFPAY | PROVIDERS: Visit Provider Physician Assistant | DX: I83.813 Varicose veins of bilateral lower extremities with pain (principal); M79.7 Fibromyalgia; K21.9 Gastro-esophageal reflux disease without esophagitis; R11.0 Nausea; R51.9 Headache, unspecified; R07.9 Chest pain, unspecified; I10 Essential (primary) hypertension; Z79.899 Other long term (current) drug therapy | CPT/HCPCS: 93005; 99212 ==

== ENCOUNTER 2024-12-19 13:45 | Outpatient (AMB) | payer OTHER, SELFPAY ==
--- NOTE | 2024-12-19 14:04 | MHC.OFFVIS ---
Vital Signs 12/19/24 14:09 Height 5 ft 6 in Weight 214 lb BMI 34.5 Handedness Right Intake Visit Reasons: OV-Recurring pain B/L hands-EMG done 09/20/24 Intake Note: Mona is a 44 year old right hand dominant,Anguillan speaking, woman who presents today for a follow up of her bilateral hands and for an EMG review of her bilateral hands. EMG/NCS done on 09/20/24. She expresses the right is greater than left hand, she says she feels like her hands are numb and tingling at all times. She says she has the same symptom on her bilateral hands however the right bothers her the most due to it being her dominant hand. Her right hand 2nd, 4th and 5th digits are frequently cramping and locking on her she says. Patient says if she needs surgery she is willing to discuss this. She has stitches on the left hand middle finger, had a cyst removal surgery roughly 2 weeks ago at [facility]. Tomorrow they will remove her sutures. Patient says she will be getting a Holter monitor placed due to an increase in chest pain placed 01/02/25 for 24 hours. History of right carpal tunnel syndrome, S/P repeat carpal tunnel releases DOS: 10/01/22 S/P carpal tunnel release on 03/16/18, with no improvement Repeat release on 11/30/18, with good improvement of her symptoms following her second surgery Both performed by Dr. Weldon Tactical Air Defense Controller Required: Yes Tactical Air Defense Controller Language: Sludge Filtration Operator Services: Tactical Air Defense Controller Present (iPad) Tactical Air Defense Controller Name: [id number] Allergies Iodinated Contrast Media (IV CONTRAST) Allergy (Severe, Verified 12/19/24 14:15) ANAPHYLAXIS cyclobenzaprine (From FLEXERIL) Allergy (Intermediate, Verified 12/19/24 14:15) NUMBNESS gadobutrol (From GADAVIST) Allergy (Intermediate, Verified 12/19/24 14:15) DIFFICULTY BREATHING perfume (PERFUME) Allergy (Intermediate, Verified 12/19/24 14:15) TRIGGERS ASTHMA prednisone Allergy (Intermediate, Verified 12/19/24 14:15) swelling fish derived Allergy (Unknown, Verified 12/19/24 14:15) Swelling nuts Adverse Reaction (Uncoded 12/19/24 14:15) Itching HPI HPI OV-Recurring pain B/L hands-EMG done 09/20/24: Details: Mona is a 44 year old right hand dominant Anguillan speaking woman who returns for a NCS review of her bilateral hand numbness. Translation service used. She complains of bilateral hand numbness, R>L. She says this is more bothersome in the ulnar aspect of her right hand. Her left hand is numb primarily at night, and is not as bothersome during the day. She says she had a cyst removed from her left middle finger ~2 weeks ago at [facility]. She is scheduled to wear a Halter monitor for 24 hours, on , due to chest pain She has a Hx of multiple RIGHT carpal tunnel releases in the past. DOS: 10/01/22 by me with improvement in her nighttime symptoms, but persistent numbness in the median nerve distribution DOS: Dr. Weldon where she had reported her sensation had returned to normal DOS: 1st surgery with Dr. Weldon where she had no improvement in her symptoms Of note, she is 44 and unemployed due to having Fibromyalgia, anxiety, depression, and a Hx of panic attacks. [facility] Medical History Right knee pain Tracheobronchitis Physical exam Skin lesion Hypertension Left foot pain Chronic cough Right elbow pain Morbid obesity Generalized anxiety disorder Asthma Hypovitaminosis D Mild recurrent major depression Pleuritic chest pain COVID-19 Breast pain, left Sinusitis Low back pain Polyarthralgia Ophthalmoplegic migraine Menieres disease Frequent falls RBBB (right bundle branch block) Leg edema Breast mass, right Left elbow pain Fibromyalgia Ankle pain, right Labial lesion Rectal bleeding H. pylori duodenitis Submandibular lymphadenopathy Chronic neck pain AIRAM (obstructive sleep apnea) Panic attacks Surgical History S/P arthroscopic surgery of right knee History of endoscopy History of colonoscopy History of cholecystectomy History of hysterectomy History of tubal ligation History of section History of carpal tunnel surgery of right wrist Family History Father Oral cancer Thyroid cancer Colon cancer Mother NIDDY (non-insulin dependent diabetes mellitus in young) Gastric ulcer Paternal Grandfather Colon cancer Paternal Uncle Colon cancer Other Family history of colon cancer in father Social History Housing: House Are you a primary medical care evaluation specialist to a significant other at home: No Alcohol intake: never Patient Tobacco Use Status: Never used Tobacco e-Cigarette/Vaping Use: Never Used Second Hand Smoke Exposure: No service: No Current occupational status: unemployed Sexual orientation: Straight/Heterosexual Gender identity: Female Cognitive needs: No Hearing needs: No Vision needs: Yes Physical Exam Vital Signs: BMI result Body Mass Index 34.5 Const General: no acute distress and alert Orientation/consciousness: patient oriented x3 Neuro General: patient oriented x3 Extrem Other: Evaluation of Bilateral Upper Extremity: The patient is alert, oriented, and in no acute distress Neuro: Normal sensation in the left median and ulnar nerve distributions. No thenar or intrinsic wasting Good APB muscle belly firing and good finger cross Dense numbness in the right median nerve distribution that she says is not worse and not particularly bothersome. Dense numbness in the right ulnar nerve distribution, which she says is new in the last 3-4 months No thenar or intrinsic wasting Good APB muscle belly firing and good finger cross Vascular: Cap refill brisk ROM: She can make a fist and extend all her digits No locking or catching Nerve Conduction Studies: IMPRESSION: 1. This is an abnormal study. 2. There is electrodiagnostic evidence for bilateral moderate-severe median neuropathy at the wrist, consistent with carpal tunnel syndrome. 3. There is no electrodiagnostic evidence for ulnar neuropathy, brachial plexopathy, or cervical radiculopathy. CLINICAL COMMENT: Note that I reviewed EMG done by Dr. Smith in 2020, normal bilateral upper extremity, did not show signs of Carpal Tunnel Syndrome at that time. Marija Ramesh MD, LAITH 09/20/24 IMPRESSION: Early carpal tunnel syndrome on the right, no significant changes since last NCS in 2020. Normal EMG of the right C5-T1 innervated muscles Steven Smith MD 05/26/22 IMPRESSION:? Nerve conduction EMG study:? Normal electrodiagnostic study of both upper extremity with no evidence of carpal tunnel syndrome or nerve entrapment. ? Normal EMG of the right C5-T1 innervated muscles. Steven Smith MD 10/09/2020 Psych Appearance: grossly normal Affect: normal affect Attitude: cooperative Assessment & Plan Assessment & Plan (1) Carpal tunnel syndrome of left wrist: Code(s): G56.02 - Carpal tunnel syndrome, left upper limb Category: Medical (2) Carpal tunnel syndrome of right wrist: Code(s): G56.01 - Carpal tunnel syndrome, right upper limb Category: Medical (3) Numbness and tingling in right hand: Code(s): R20.0 - Anesthesia of skin; R20.2 - Paresthesia of skin Category: Medical (4) History of carpal tunnel surgery of right wrist: Comment: (Rt carpal tunnel release 03/16/2018; revision 11/30/2018 [place] [facility] [place] Code(s): Z98.890 - Other specified postprocedural states Category: Surgical (5) Fibromyalgia: Code(s): M79.7 - Fibromyalgia Category: Medical Plan Assessment & Plan: 1. Left carpal tunnel syndrome, moderate-severe Symptoms intermittent, but daily, worse at night I educated her about this condition I discussed operative and non-operative treatment options The patient would like to proceed with surgery The risks and benefits of operative treatment were discussed with the patient and the patient wishes to proceed with surgery. These risks include, but are not limited to risk of damage to blood vessels, nerves, tendons, infection, recurrence, incomplete relief of preoperative symptoms, persistent pain, possible need for further surgery and the risks associated with regional blocks and anesthesia. The plan is to take the patient to the operating room sometime in the next few weeks for the following procedures: 1. Left carpal tunnel release, under local All of the preoperative paperwork including the consent was reviewed today. All the patient's questions were answered. The patient understands that they will be contacted by our corporate scheduler soon to schedule this procedure She denies Diabetes, blood thinners, asthma, heart, lung, kidney issues She has Fibromyalgia, Anxiety, depression, and a Hx of recurrent panic attacks 2. Right hand numbness, In the ulnar nerve distribution With dense numbness X5-6 months NCS negative for cubital tunnel syndrome We will take time to see if these symptoms improve If her symptoms persist or worse, we may discuss a possible cubital tunnel release vs a repeat NCS 3. Right RECURRENT carpal tunnel syndrome, moderate-severe Hx of multiple carpal tunnel releases DOS: 10/01/22 by me 05/17/17 by Fatemeh, with no improvement 11/30/18 by Fatemeh, with good improvement of her symptoms following her second surgery Regarding 10/01/2022 surgery: Pre-operatively with dense numbness Post-operatively dense numbness, nighttime symptoms improved from prior Still with dense numbness, no worsening of symptoms I do not recommend a further right repeat carpal tunnel release at this time, as her symptoms of dense numbness showed minimal improvement following her previous surgeries She is not having any symptoms of pain or nighttime worsening at this time Scribed for Romana Feldman MD by Mason Ochoa, biomedical photographer, on 12/19/24 at 2:35 PM, EST. Coding Level of Care Code Est Pt Level 4 (70980) Diagnoses Carpal tunnel syndrome of left wrist G56.02 Carpal tunnel syndrome of right wrist G56.01 Numbness and tingling in right hand R20.0; R20.2 History of carpal tunnel surgery of right wrist Z98.890 Fibromyalgia M79.7
[2024-12-19 14:09] VITALS: BMI 34.5
--- OUTSIDE RECORDS SUMMARY | 2024-12-19 17:37 | XMS_ITS | Clinical Summary ---
Author Organization 175 [facility] Address [address] [place] [address] Phone Care Team Providers Care Real Estate Manager Name Role Phone Trisha Aaron MD Primary Care Provider [phone] Allergies Active Allergy Reactions Criticality Noted Date [...] Active Problems Problem Noted Date Diagnosed Date Peroneal tendinitis of left lower extremity 11/04 Disorder of ligament of ankle, left 11/27/2024 Depression 01/27/2024 Morbid obesity with BMI of 4 0.0-44.9, adult (CMS/[facility] V24, CMS/[facility] V28) 01/27/2024 Asthma 04/06/2018 AIRAM (obstructive sleep apnea) 04/06/2018 Overview (01/27/2024): 10/2018 Home Sleep Study did not reveal sleep apnea or nocturnal hypoxia. Encounters Date Type Department Care Team Description 11/27/2024 2:00 PM EDT Office Visit Orthopedic Surgery [facility] [address] [phone] Kenneth Bucio DPM Peroneal tendinitis of left lower extremity (Primary Dx); Disorder of ligament of ankle, left 11/13/2024 2:15 PM EDT Office Visit Orthopedic Surgery [facility] [address] [phone] Kenneth Bucio DPM Peroneal tendinitis of left lower extremity [...] 02/15/2024 10:00 AM EST Plan of Treatment Scheduled Procedures Name Priority Associated Diagnoses Date/Ti me STABILIZATION ANKLE LATERAL Peroneal tendinitis of left lower extremity Disorder of ligament of ankle, left REPAIR TENDON LEG Peroneal tendinitis of left lower extremity Disorder of ligament of ankle, left Health Maintenance Due Date Last Done Comments [...] 03/08/2022 Social Influencers of Health Screening 03/08/2022 Depression Screening 04/05/2024 COVID-19 Vaccine ( season) 2024 07/23/2020, 06/25/2020 Influenza Vaccine (#1) 2024 , [...] Final Result from Last [address] [place] [address] [place] [address] Care Teams Real Estate Manager Relationship Specialty Start Date End Date Trisha Aaron MD [address] [facility] , [address] [facility] Physician Associ D/B/A: [facility] PCP - General Internal Medicine 12/31/17
== END 2024-12-19 14:59 | disposition home or self-care (01) ==
LOC: HO.HOS 13:46
PROVIDERS: PCP Physician Assistant; Visit Provider Orthopaedic Surgery
DX: G56.03 Carpal tunnel syndrome, bilateral upper limbs (principal); R20.0 Anesthesia of skin; R20.2 Paresthesia of skin; Z98.890 Other specified postprocedural states; M79.7 Fibromyalgia
CPT/HCPCS: 99214

== ENCOUNTER → 2024-12-19 13:45 | Outpatient (BNVA) | payer OTHER, SELFPAY | PROVIDERS: PCP Physician Assistant; Visit Provider Orthopaedic Surgery | DX: Z01.818 Encounter for other preprocedural examination (principal); G56.02 Carpal tunnel syndrome, left upper limb; G56.01 Carpal tunnel syndrome, right upper limb; R20.0 Anesthesia of skin; R20.2 Paresthesia of skin; M79.7 Fibromyalgia | CPT/HCPCS: 99212 ==

== ENCOUNTER 2024-12-28 09:37 | Outpatient (AMB) | payer OTHER, SELFPAY ==
[2024-12-28 09:42] VITALS: BP 102/64; PULSE 79; TEMP 36.9; O2SAT 100; BMI 35.5
--- NOTE | 2024-12-28 09:42 | AM.OFFWIN_ITS ---
Intake Vital Signs 12/28/24 09:42 Height 5 ft 6 in Weight 220 lb BMI 35.5 BP 102/64 Blood Pressure Location Rt brachial Position Sitting Pulse 79 Pulse Source Pulse Oximeter Temp 98.5 F Temp Source Oral Pulse Oximetry (%) 100 Oxygen Delivery Method Room Air Intake Visit Reasons: EP-rt breast pain from a fall Intake Note: pt presents with Patient Tobacco Use Status: Never used Tobacco Allergies Iodinated Contrast Media (IV CONTRAST) Allergy (Severe, Verified 12/28/24 09:45) ANAPHYLAXIS cyclobenzaprine (From FLEXERIL) Allergy (Intermediate, Verified 12/28/24 09:45) NUMBNESS gadobutrol (From GADAVIST) Allergy (Intermediate, Verified 12/28/24 09:45) DIFFICULTY BREATHING perfume (PERFUME) Allergy (Intermediate, Verified 12/28/24 09:45) TRIGGERS ASTHMA prednisone Allergy (Intermediate, Verified 12/28/24 09:45) swelling fish derived Allergy (Unknown, Verified 12/28/24 09:45) Swelling nuts Adverse Reaction (Uncoded 12/19/24 14:15) Itching Do you need a note to return to daycare/school/sports/work: Yes HPI HPI Comments History of Present Illness Details History of Present Illness - The patient is a 44-year-old female pr esenting with injuries sustained from a fall. - The patient fell down 8 stairs at home inside last week. - She states that she was not able to ge t up right away due to pain and had her mother help her up. - She had no LOC and she did not have sy ncope prior to the fall. - She states that the fall impacted her right arm, right breast, and left lower back. - The fall resulted in bruising and sign ificant pain, particularly in the breast area. - The patient did not seek immediate med ical attention due to the situation at [facility]. - The patient reports persistent pain in the breast, exacerbated by contact with a stick at the bottom of the stairs. - She has been taking her gabapentin and tramadol for pain at home. - She states that she has no trouble chapito athing. - Has increased pain with movement. - She denies CP, abd pain, SARMIENTO, dizziness , weakness, numbness, or tingling. Physical Exam General: Cooperative, healthy appearing, comfortable, no acute distress and well developed Orientation: Patient oriented x3 Limitations: No limitations Head: Normal to inspection Neck: Normal visual inspection, full ROM Respiratory: Normal respiratory effort and able to speak in complete sentences. No w/r/r noted. TTP of the right anterion chest wall. No crepitus noted. Breast: TTP of the right lateral breast. No masses or hematomas noted. Skin: Bruising noted on the right arm, side of the right breast. No abrasions or hematomas. No rashes or lesions noted. Neuro: Patient oriented x3, CN 2-12 intact, gait normal Back/spine: FROM of the spine. No midline spinous tenderness noted. No step offs noted. TTP of the lumbar paraspinous muscles. No SI joint tenderness noted. No SLR noted. Strength is 5/5 on the LE. Ambulates with a steady gait. Patient was informed and verbally consented to the use of an ambient scribe for clinic note documentation during this visit. [facility] Medical History Right knee pain Tracheobronchitis Physical exam Skin lesion Hypertension Left foot pain Chronic cough Right elbow pain Morbid obesity Generalized anxiety disorder Asthma Hypovitaminosis D Mild recurrent major depression Pleuritic chest pain COVID-19 Breast pain, left Sinusitis Low back pain Polyarthralgia Ophthalmoplegic migraine Menieres disease Frequent falls RBBB (right bundle branch block) Leg edema Breast mass, right Left elbow pain Fibromyalgia Ankle pain, right Labial lesion Rectal bleeding H. pylori duodenitis Submandibular lymphadenopathy Chronic neck pain AIRAM (obstructive sleep apnea) Panic attacks Surgical History S/P arthroscopic surgery of right knee History of endoscopy History of colonoscopy History of cholecystectomy History of hysterectomy History of tubal ligation History of section History of carpal tunnel surgery of right wrist Family History Father Oral cancer Thyroid cancer Colon cancer Mother NIDDY (non-insulin dependent diabetes mellitus in young) Gastric ulcer Paternal Grandfather Colon cancer Paternal Uncle Colon cancer Other Family history of colon cancer in father Social History Housing: House Are you a primary health care consultant to a significant other at home: No Alcohol intake: never Patient Tobacco Use Status: Never used Tobacco e-Cigarette/Vaping Use: Never Used Second Hand Smoke Exposure: No service: No Current occupational status: unemployed Sexual orientation: Straight/Heterosexual Gender identity: Female Cognitive needs: No Hearing needs: No Vision needs: Yes Review of Systems Const All systems reviewed & are unremarkable except as noted in HPI and below Physical Exam Vital Signs: Last Vital Signs Temp 98.5 F 12/28/24 09:42 Pulse 79 12/28/24 09:42 BP 102/64 12/28/24 09:42 Pulse Ox 100 12/28/24 09:42 Oxygen Delivery Method Room Air 12/28/24 09:42 BMI result Body Mass Index 35.5 Assessment & Plan Assessment & Plan (1) Pain of right breast: Code(s): N64.4 - Mastodynia (2) Fall (on) (from) other stairs and steps, initial encounter: Code(s): W10.8XXA - Fall (on) (from) other stairs and steps, initial encounter Plan Most likely contusion vs rib fracture Plan - Order a chest x-ray to rule out rib fracture due to fall. - If breast pain persists, recommend follow-up with primary care for a breast ultrasound. - Continue current pain management medications at home. - Patient advised to follow up with her provider for hemorrhoid management. Orders: Orders XR chest 2V Today R05.9 - Cough, unspecified Coding Level of Care Code Est Pt Level 4 (27955) Diagnoses Pain of right breast N64.4 Fall (on) (from) other stairs and steps, initial encounter W10.8XXA
--- OUTSIDE RECORDS SUMMARY | 2024-12-28 11:13 | XMS_ITS | Clinical Summary ---
Author Organization 175 [facility] Address [address] [place] [address] Phone Care Team Providers Care Sole Molder Name Role Phone Trisha Aaron MD Primary Care Provider [phone] Allergies Active Allergy Reactions Criticality Noted Date [...] obesity with BMI of 4 0.0-44.9, adult (CMS/[facility] V24, [facility] V28) 01/27/2024 Asthma 04/06/2018 AIRAM (obstructive sleep apnea) 04/06/2018 Overview (01/27/2024): 10/2018 Home Sleep Study did not reveal sleep apnea or nocturnal hypoxia. Encounters Date Type Department Care Team Description 11/27/2024 2:00 PM EDT Office Visit Orthopedic Surgery [facility] [address] [phone] Kenneth Bucio DPM Peroneal tendinitis of left lower extremity (Primary Dx); Disorder of ligament of ankle, left 11/13/2024 2:15 PM EDT Office Visit Orthopedic Surgery [facility] [address] [phone] Kenneth Bucio DPM Peroneal tendinitis of left lower extremity (Primary Dx); Disorder of ligament of ankle, left; Arthritis of left subtalar joint; Capsulitis of left foot from Last 3 Months Immunizations Name Administration Dates Next Due Influenza Quadravalent, MDCK , 0.5ml, preservative free (Flucelvax) 6mo and older 04/06/2018 Surgical History Surgery Date Site/Laterality Comments OTHER SURGICAL HISTORY PROCEDURE: DC ARTHRS WRST EXC&/RPR TRIANG FIBROCART&/JOINT SECTION PROCEDURE: [...] 2024 , 01/26/2023, 01/06/2022, Additional history exists RSV Immunization Adult Patients (1 - 1-dose 75+ series) 2054 HIB Vaccines Aged Out No longer eligi [...] Informed Consent: Laterality: Left Kenneth Bucio DPM IN CLINIC/BEDSIDE ORDERABLE S Final Result from Last 3 Months Insurance HEALTH PLAN Care Teams Sole Molder Relationship Specialty Start Date End Date Trisha Aaron MD [address] [facility] , [address] [facility] Physician Associ D/B/A: [facility] [place], [place] PCP - General Internal Medicine 12/31/17
== END 2024-12-28 10:55 | disposition home or self-care (01) ==
PROVIDERS: PCP Physician Assistant; Visit Provider Physician Assistant Medical
DX: N64.4 Mastodynia (principal); W10.8XXA Fall (on) (from) other stairs and steps, initial encounter

== ENCOUNTER 2024-12-28 09:37 | Outpatient (REF) | payer OTHER, SELFPAY ==
--- NOTE | ~2024-12-28 | XR_ITS ---
EXAMINATION: XR CHEST 2 VIEWS HISTORY: R05.9 - Cough, unspecified COMPARISON: Comparison is made with the prior examination dated 01/10/2024. FINDINGS: PA and lateral views of the chest are submitted. The lungs are expanded and clear. There is no pleural effusion, pneumothorax, or pulmonary vascular congestion. The heart is normal in size. There is mild degenerative disc disease of the spine. XR/XR chest 2V IMPRESSION: No acute cardiopulmonary abnormality. Electronically signed by: Juarez Hung MD 12/28/2024 11:00 AM EDT
== END 2024-12-28 09:38 | disposition home or self-care (01) ==
LOC: HO.HMGCX 09:37
PROVIDERS: PCP Physician Assistant; Referring Provider Physician Assistant Medical; Visit Provider Physician Assistant
DX: N64.4 Mastodynia (principal); R05.9 Cough, unspecified; W10.8XXA Fall (on) (from) other stairs and steps, initial encounter
CPT/HCPCS: 36415; 71046; 82306; 99212

== ENCOUNTER → 2024-12-28 10:48 | Outpatient (BNV) | payer OTHER, SELFPAY | PROVIDERS: PCP Physician Assistant; Referring Provider Physician Assistant Medical; Visit Provider Radiology Diagnostic Radiology | DX: R05.9 Cough, unspecified (principal) | CPT/HCPCS: 71046 ==

== ENCOUNTER 2025-01-01 10:21 | Outpatient (AMB) | payer OTHER, SELFPAY ==
--- NOTE | 2025-01-01 10:22 | MHC.OFFVIS ---
Vital Signs 01/01/25 10:24 Height 5 ft 6 in Weight 216 lb 0.848 oz BMI 34.9 Intake Visit Reasons: Obesity Intake Note: Patient present today for Obesity follow up. Patient states she was paying out of pocket for the Zepbound 2.5 mg for 3 months in which she seen the weight lost. She states that now she can afford to pay out of pocket. Coke Crusher Operator Required: Yes Coke Crusher Operator Language: Manager Developmental Services: Coke Crusher Operator Present Coke Crusher Operator Name: [facility] Smita Information Interpreted: non-clinical & clinical Accompanied by: Self / Same As Patient Allergies Iodinated Contrast Media (IV CONTRAST) Allergy (Severe, Verified 01/01/25 10:25) ANAPHYLAXIS cyclobenzaprine (From FLEXERIL) Allergy (Intermediate, Verified 01/01/25 10:25) NUMBNESS gadobutrol (From GADAVIST) Allergy (Intermediate, Verified 01/01/25 10:25) DIFFICULTY BREATHING perfume (PERFUME) Allergy (Intermediate, Verified 01/01/25 10:25) TRIGGERS ASTHMA prednisone Allergy (Intermediate, Verified 01/01/25 10:25) swelling fish derived Allergy (Unknown, Verified 01/01/25 10:25) Swelling nuts Adverse Reaction (Uncoded 01/01/25 10:25) Itching Medication List - Last Reconciled 01/01/25 by Juarez Saavedra MD albuterol sulfate 2.5 mg (3 mL) inhalation Q4H PRN 30 days albuterol sulfate 90 mcg/actuation 2 inhalations inhalation Q6H PRN 30 days aripiprazole 2 mg PO DAILY azelastine 2 sprays intranasal BID 30 days cholecalciferol (vitamin D3) 125 mcg PO DAILY clonazepam 1 mg PO BID PRN commode As directed esomeprazole magnesium 40 mg PO DAILY fluoxetine 20 mg PO DAILY fluticasone propionate 50 mcg/actuation (Flonase Allergy Relief) 1 spray intranasal DAILY 30 days atxnoulkamz-cfawqyhtd-kuftwhaa 200-62.5-25 mcg (Trelegy Ellipta) 1 inh inhalation DAILY 30 days hydrochlorothiazide 25 mg PO QAM hydrocortisone 2.5% (Proctosol HC) 1 appl ID BID hydroxyzine HCl 50 mg PO BID linaclotide (Linzess) 72 mcg PO QAM montelukast 10 mg PO DAILY nebulizers (AeroEclipse II Nebulizer) As directed oxymetazoline 0.05% (Afrin (oxymetazoline)) 2 sprays intranasal Q12H PRN 5 days pregabalin (Lyrica) 200 mg PO BID 30 days pseudoephedrine HCl ER (12 Hour Decongestant ER) 120 mg PO Q12H Qsymia 3.75-23 mg ER (phentermine-topiramate) 1 capsule in the morning for 2 weeks, if no side effects, increase to 2 tablets orally daily; 30 days NS Shower Chair As directed sucralfate (Carafate) 2 grams (2 x 1 gram) PO QNOON tiotropium bromide 2.5 mcg/actuation (Spiriva Respimat) 2 puffs PO DAILY tramadol 50 mg PO Q12H 30 days walker As directed zolpidem 10 mg PO BEDTIME PRN HPI Comments Details: The patient is a 44-year-old female presenting with obesity management and weight gain concerns. She states experiencing a gradual increase in weight over the last decade, significantly exacerbated within the last year. The patient correlates weight gain with stress and familial circumstances, alongside ineffective weight-loss attempts through dietary changes under professional guidance. Her obesity complicates her asthma and is a barrier to forthcoming tendon surgery. Additionally, she manages sleep apnea with CPAP therapy and emotional hypertension with occasional medication. - Patient has experienced weight loss attempts primarily through dietary changes, not pharmacologic weight loss medications. - She has used antihypertensive medications for emotional hypertension management. Currently not on Qsymia 3.75-23 mg - PFSH Medical History Right knee pain Tracheobronchitis Physical exam Skin lesion Hypertension Left foot pain Chronic cough Right elbow pain Morbid obesity Generalized anxiety disorder Asthma Hypovitaminosis D Mild recurrent major depression Pleuritic chest pain COVID-19 Breast pain, left Sinusitis Low back pain Polyarthralgia Ophthalmoplegic migraine Menieres disease Frequent falls RBBB (right bundle branch block) Leg edema Breast mass, right Left elbow pain Fibromyalgia Ankle pain, right Labial lesion Rectal bleeding H. pylori duodenitis Submandibular lymphadenopathy Chronic neck pain AIRAM (obstructive sleep apnea) Panic attacks Surgical History S/P arthroscopic surgery of right knee History of endoscopy History of colonoscopy History of cholecystectomy History of hysterectomy History of tubal ligation History of section History of carpal tunnel surgery of right wrist Family History Father Oral cancer Thyroid cancer Colon cancer Mother JOEL (non-insulin dependent diabetes mellitus in young) Gastric ulcer Paternal Grandfather Colon cancer Paternal Uncle Colon cancer Other Family history of colon cancer in father Social History Housing: House Are you a primary care management associate to a significant other at home: No Alcohol intake: never Patient Tobacco Use Status: Never used Tobacco e-Cigarette/Vaping Use: Never Used Second Hand Smoke Exposure: No service: No Current occupational status: unemployed Sexual orientation: Straight/Heterosexual Gender identity: Female Cognitive needs: No Hearing needs: No Vision needs: Yes Physical Exam Vital Signs: BMI result Body Mass Index 34.9 Assessment & Plan Assessment & Plan (1) Morbid obesity: Code(s): E66.01 - Morbid (severe) obesity due to excess calories Category: Medical Plan: This is a 44-year-old female with a history of morbid obesity. She has tried nonpharmacologic dietary management without success as well as a trial of phentermine in the past. There was no clear endocrine etiology behind the weight gain obesity. Unfortunately after several appeals, insurance will not pay for any weight loss medications At this point, patient can returned to the care of her primary care provider as well as master scheduler here. Continue to push nonpharmacologic weight loss. Return to endocrinology as needed Coding Level of Care Code Est Pt Level 3 (61521) Diagnoses Morbid obesity E66.01
[2025-01-01 10:24] VITALS: BMI 34.9
--- OUTSIDE RECORDS SUMMARY | 2025-01-01 11:31 | XMS_ITS | Clinical Summary ---
Author Organization 175 [facility] Address 175 [place] [address] Phone Care Team Providers Care Microsoft Access Developer Name Role Phone Trisha Aaron MD Primary Care Provider [phone] Allergies Active Allergy Reactions Criticality Noted Date [...] obesity with BMI of 4 0.0-44.9, adult (CMS/[facility] V24, [facility] V28) 01/27/2024 Asthma 04/06/2018 AIRAM (obstructive sleep apnea) 04/06/2018 Overview (01/27/2024): 10/2018 Home Sleep Study did not reveal sleep apnea or nocturnal hypoxia. Encounters Date Type Department Care Team Description 12/29/2024 Telephone Thoracic Surgery - [place] [address] [place] [address] [place] 11/27/2024 2:00 PM EDT Office Visit Orthopedic [facility] [address] [phone] Kenneth Bucio DPM Peroneal tendinitis of left lower extremity (Primary Dx); Disorder of ligament of ankle, left 11/13/2024 2:15 PM EDT Office Visit [facility]opedic [facility] [address] [phone] Kenneth Bucio DPM Peroneal tendinitis of left lower extremity (Primary Dx); Disorder of ligament of ankle, left; Arthritis of left subtalar joint; Capsulitis of left foot from Last 3 Months Immunizations Immunization Administration Dates Next Due Influenza Quadravalent, MDCK , 0.5ml, preservative free (Flucelvax) 6mo and older 04/06/2018 Surgical History Surgery Date Site/Laterality Comments OTHER SURGICAL HISTORY PROCEDURE: [place] ARTHRS WRST EXC&/RPR TRIANG FIBROCART&/JOINT SECTION PROCEDURE: [...] Care Team (Late st Contact Info) Description 04/20/2025 Hospital Encounter [facility] Main OR [address] [place] [phone] Kenneth Bucio DPM [address] [address] 05/03/2025 10:00 AM EST Office Visit Orthopedic Surgery - [place] [address] [phone] Kenneth Bucio DPM [address] [address] Scheduled Procedures Name Priority Associated Diagnoses Date/Ti me STABILIZATION ANKLE LATERAL Peroneal tendinitis of left lower extremity Disorder of ligament of ankle, left REPAIR TENDON LEG Peroneal tendinitis of left lower extremity Disorder of ligament of ankle, left Health Maintenance Due Date Last Done Comments Breast Cancer Screening 1980 Colorectal Cancer Screening: Colonoscopy 1980 DTaP,Tdap,and Td Vaccines (1 - Tdap) 1998 Hepatitis B Vaccines (1 of 3 - 19+ 3-dose series) 1998 Pneumococcal Vaccine: Pediatrics (0 to 5 Years) and At-Risk Patients (6 to 49 Years) (1 of 2 - PCV) 1998 Cervical Cancer Screening: Pap Smear 2000 HPV Vaccines (1 - 3-dose SCDM series) 2006 Cholesterol Screening (Lipid Panel) 03/08/2022 HIV Screening 03/08/2022 Hepatitis C Screening [...] Last 3 Months Insurance PLAN Care Teams Microsoft Access Developer Relationship Specialty Start Date End Date Trisha Aaron MD [address] [place] [address] , [address] [facility] Physician Associ D/B/A: [facility] Carlin PCP - General Internal Medicine 12/31/17
--- OUTSIDE RECORDS SUMMARY | 2025-01-01 11:31 | XMS_ITS | Encounter Summary ---
Author Organization [facility] Address [address] [place] [address] Care Team Providers Care Water Fitness Instructor Name Role Phone Trisha Aaron MD Primary Care Provider [phone] Encounter Details Date Type Department Care Team (Late Contact Info) Description 12/29/2024 Telephone Thoracic Surgery - [place] [address] [place] [phone] Reynaldo Nagel [place] Social History Tobacco Use Types Packs/Day Years [...] as of this encounter Progress Notes * Reynaldo Nagel MA - 12/29/2024 3:50 PM EDT Pt requested later time in April, due to sons being away and not returning until April. Pt will need pre-op appt scheduled. documented in this encounter Plan of Treatment Upcoming Encounters Date Type Department Care Team (Late st Contact Info) Description 04/20/2025 Hospital Encounter [facility] Main OR [address] [place] [phone] Kenneth Bucio, FREDERIC [address] [address] 05/03/2025 10:00 AM EST Office Visit Orthopedic Surgery - [place] 250 175 [facility] 250 [place] [phone] Kenneth Bucio, DPM 175 [facility] [address] [place] [address] Scheduled Procedures Name Priority Associated Diagnoses Date/Ti me STABILIZATION ANKLE LATERAL Peroneal tendinitis of left lower extremity Disorder of ligament of ankle, left REPAIR TENDON LEG Peroneal tendinitis of left lower extremity Disorder of ligament of ankle, left documented as of this encounter Visit Diagnoses Not on filedocumented in this encounter Care Teams Water Fitness Instructor Relationship Specialty Start Date End Date Trisha Aaron MD [address] [place] [address] , [address] [facility] Physician Associ D/B/A: [facility] [place], [place] PCP - General Internal Medicine 12/31/17 documented as of this encounter
== END 2025-01-01 11:26 | disposition home or self-care (01) ==
LOC: HO.ENCR 10:21
PROVIDERS: PCP Physician Assistant; Visit Provider Internal Medicine Endocrinology, Diabetes & Metabolism
DX: E66.01 Morbid (severe) obesity due to excess calories (principal)
CPT/HCPCS: 99213

== ENCOUNTER → 2025-01-01 10:21 | Outpatient (BNVA) | payer OTHER, SELFPAY | PROVIDERS: PCP Physician Assistant; Visit Provider Internal Medicine Endocrinology, Diabetes & Metabolism | DX: E66.01 Morbid (severe) obesity due to excess calories (principal) | CPT/HCPCS: 99212 ==

== ENCOUNTER → 2025-01-02 08:15 | Outpatient (REF) | payer OTHER, SELFPAY ==
--- NOTE | 2025-01-02 08:19 | HM_ITS ---
Conclusion: 1. Patient was monitored for total period of 1 day 2. Baseline was normal sinus rhythm with average heart rate of 77 beats per minute 3. Rare PVCs noted 4. No significant pauses noted 5. No patient reported events MTDD
--- NOTE | 2025-01-02 08:19 | CA_ITS ---
Transthoracic Echocardiogram Patient (Last, First, Middle): Mona White, Gender: Female Date of : 1980 Age: 44 Procedure Date: 01/02/2025 Procedure Type: Transthoracic Echocardiogram Location: OP Height: 167.64 cm Weight: 92.99 kg BSA: 2.02 m2 Heart Rate: bpm BP: 118 / 80 mmHg Pharmacy Tech Customer Service: CP/ADRIEN Referring MD: Keyla Ac PA-C Symptoms: R07.9 - Chest pain, unspecified Study Quality: Fair ECG Rhythm: Sinus Conclusions: - The left ventricular systolic function is normal. The calculated ejection fraction is 58% by biplane method. - No obvious valvular pathology seen on this study. Findings Left Ventricle Normal left ventricular cavity size. There is normal left ventricular wall thickness. The left ventricular systolic function is normal. The calculated ejection fraction is 58% by biplane method. There is no evidence of regional wall motion abnormalities. Diastolic function is normal for age. Right Ventricle Normal right ventricular cavity size and systolic function. Atria Both atria are normal in size. Aortic Valve There is a normal trileaflet aortic valve. There is no aortic valve stenosis. There is no aortic valve regurgitation. Mitral Valve The mitral valve appears normal. There is no mitral valve regurgitation. There is no mitral valve stenosis. Pulmonic Valve The pulmonic valve is likely normal. Tricuspid Valve There is no tricuspid valve regurgitation. Tricuspid regurgitation envelope is inadequate for calculation of right ventricular systolic pressure. Great Vessels The asc aorta is normal in size. Venous The inferior vena cava is normal in size and collapses greater than 50% with inspiration. Pericardium/Pleural There is no evidence of pericardial effusion. Prior Study Comparison No significant change compared to prior study dated: 01/02/2020. Recommendations, Care & Conclusions No obvious valvular pathology seen on this study. Measurements 2D Linear Measurements IVSd: 0.91 0.6-0.9/0.6-1.0 cm LVIDd: 4.12 3.9-5.3/4.2-5.9 cm LVIDd Index: 2.04 2.4-3.2/2.2-3.1 cm/m2 LVIDs: 2.58 2.0-3.6 cm LVPWd: 0.97 0.7-1.1 cm LA Diam: 3.30 2.7-3.8/3.0-4.0 cm LAIDs Index: 1.63 1.5-2.3 cm/m2 LV Mass: 152.25 67-162/88-224 g LV Mass Index: 75.37 43-95/49-115 g/m2 LVOT Diam: 2.10 3.0+(-)1.3 cm 2D Systolic Function EF 4C: 62.30 >55% EF 2C: 51.10 >55% EF BiP: 57.50 >55% Mitral Valve MV Pk E: 1.05 MV PK A: 0.74 MV Decel Time: 199.00 E/A: 1.40 E'Lateral: 11.00 E'Medial: 8.16 E/E' Med: 12.90 E/E' Lat: 9.50 PHT: 58.00 MVA PHT: 3.79 Decel [place]: 5.28 Aortic Valve AoV Pk Olu: 1.63 AoV Mn Olu: 1.15 AoV VTI: 0.36 AoV Pk Grad: 11.00 Aov Mn Grad: 6.00 JACI Cont.VTI: 2.16 LVOT LVOT Pk Olu: 1.11 LVOT Mn Olu: 0.68 LVOT VTI: 0.23 LVOT Pk Grad: 5.00 LVOT Mn Grad: 2.00 LVOT Diam: 2.10 LVOT Area: 3.46 Diastolic Function MV Pk E: 1.05 MV Pk A: 0.74 E/A: 1.40 E'Medial: 8.16 E/E' Med: 12.90 E' Laterial: 11.00 E/E' Lat: 9.50 Right Ventricle TAPSE (mm): 33.50 TVS' Olu: 13.40 Tricuspid Valve RA Press: 3.00 Great Vessels Aorta Sinus of Valsalva: 3.00 2.0-3.5 cm Ao Asc: 2.90 2.1-3.4 cm Pulmonary Veins Pulm Vein S/D 1.00 Pulmonary Valve PV Pk Olu: 0.87 Peak PV Grad: 3.00 Updated in Other Vendor System with Status of Final Shine Slaughter MD electronically signed on 01/03/2025 12:30:39 PM with status of Final
--- NOTE | 2025-01-02 08:19 | CA_ITS ---
Acquisition Time: 2025-01-02 09:34:51 Total Exercise Time: 00:06:15 Test Indications: CP, SOB Medications: SEE H&P Protocol: KARIN Max HR: 141 BPM 80% of Pred: 175 BPM Max BP: 126/80 mmHG Max Work Load: 7.3 METS Exercise stress test with exercise 6 min 15 seconds of Karin protocol, achieving 74% MPHR, with request to stop due to moderate shortness of breath and knee pain, without arrythmia, with normotensive response to exercise, with nondiagnostic EKG for ischemia due to suboptimal heart rate. Test reviewed with Dr Slaughter. Referred By: Keyla Ac Electronically Signed By: BARRY BHATTI
--- OUTSIDE RECORDS SUMMARY | 2025-01-02 08:32 | XMS_ITS | Encounter Summary ---
Author Organization [facility] [place] Address [address] [place] [address] Care Team Providers Care Security Support Analyst Name Role Phone Trisha Aaron MD Primary Care Provider [phone] Encounter Details Date Type Department Care Team (Late Contact Info) Description 12/29/2024 Telephone Thoracic Surgery - [place] [address] [place] [phone] Reynaldo Ngael [place] Social History Tobacco Use Types Packs/Day [...] st Contact Info) Description 04/20/2025 Hospital Encounter [facility] Main OR [address] [place] [phone] Kenneth Bucio, FREDERIC [address] [address] 05/03/2025 10:00 AM EST Office Visit Orthopedic Surgery - [place] 250 175 [facility] 250 [place] [phone] Kenneth Bucio, DPM 175 [facility] [address] [place] [address] Scheduled Procedures Name Priority Associated Diagnoses Date/Ti me STABILIZATION ANKLE LATERAL Peroneal tendinitis of left lower extremity Disorder of ligament of ankle, left REPAIR TENDON LEG Peroneal tendinitis of left lower extremity Disorder of ligament of ankle, left documented as of this encounter Visit Diagnoses Not on filedocumented in this encounter Care Teams Security Support Analyst Relationship Specialty Start Date End Date Trisha Aaron MD [address] [place] [address] , [address] [facility] Physician Associ D/B/A: [facility] [place], [place] PCP - General Internal Medicine 12/31/17 documented as of this encounter
--- OUTSIDE RECORDS SUMMARY | 2025-01-02 08:32 | XMS_ITS | Clinical Summary ---
Author Organization 175 [facility] Address [address] [place] [address] Phone Care Team Providers Care Fusion Analyst Name Role Phone Trisha Aaron MD Primary Care Provider [phone] Allergies Active Allergy Reactions Criticality Noted Date [...] obesity with BMI of 4 0.0-44.9, adult (CMS/[facility] V24, [facility] V28) 01/27/2024 Asthma 04/06/2018 AIRAM (obstructive sleep apnea) 04/06/2018 Overview (01/27/2024): 10/2018 Home Sleep Study did not reveal sleep apnea or nocturnal hypoxia. Encounters Date Type Department Care Team Description 12/29/2024 Telephone Thoracic Surgery - [place] [address] [place] [address] [place] 11/27/2024 2:00 PM EDT Office Visit Orthopedic Surgery [facility] [address] [phone] Kenneth Bucio DPM Peroneal tendinitis of left lower extremity (Primary Dx); Disorder of ligament of ankle, left 11/13/2024 2:15 PM EDT Office Visit Orthopedic Surgery [facility] [address] [phone] Kenneth Bucio DPM Peroneal tendinitis of left [...] st Contact Info) Description 04/20/2025 Hospital Encounter [facility] Main OR [address] [place] [phone] Kenneth uBcio DPM [address] [address] 05/03/2025 10:00 AM EST Office Visit Orthopedic Surgery - [place] [address] [phone] Kenneth Bucio DPM [address] [address] Scheduled Procedures Name Priority Associated Diagnoses Date/Ti [...] Last 3 Months Insurance PLAN Care Teams Fusion Analyst Relationship Specialty Start Date End Date Trisha Aaron MD [address] [place] [address] , [address] [facility] Physician Associ D/B/A: [facility] Carlin PCP - General Internal Medicine 12/31/17
== END ==
LOC: HO.CARD 08:15
PROVIDERS: Visit Provider Physician Assistant
DX: R00.2 Palpitations (principal); R07.9 Chest pain, unspecified; R06.02 Shortness of breath
CPT/HCPCS: 93017; 93225; 93306

== ENCOUNTER → 2025-01-02 08:19 | Outpatient (BNV) | payer OTHER, SELFPAY | PROVIDERS: Visit Provider Nurse Practitioner Family | DX: I49.3 Ventricular premature depolarization (principal) | CPT/HCPCS: 93016; 93018; 93227; 93306 ==

== ENCOUNTER 2025-01-11 14:40 | Outpatient (AMB) | payer OTHER, SELFPAY ==
[2025-01-11 14:48] VITALS: BMI 34.9
--- NOTE | 2025-01-11 14:48 | A.OFFVIS_ITS ---
Vital Signs 01/11/25 14:48 Height 5 ft 6 in Weight 216 lb BMI 34.9 Intake Visit Reasons: OV-Rt Knee 09/22/24 Intake Note: Mona is a 44 year old woman who presents today in office for a follow up of her right knee after undergoing a right knee arthroscopic surgery on 09/22/24. Patient state she is having discomfort in her medial aspect of knee. She also stated she fell down several stairs about 2-3 weeks ago and her knee pain has been somewhat worse since that time. She denies any locking or giving way. She denies any fevers or chills. Envelope Machine Operator Name: Jacky [id number] Allergies Iodinated Contrast Media (IV CONTRAST) Allergy (Severe, Verified 01/11/25 14:51) ANAPHYLAXIS cyclobenzaprine (From FLEXERIL) Allergy (Intermediate, Verified 01/11/25 14:51) NUMBNESS gadobutrol (From GADAVIST) Allergy (Intermediate, Verified 01/11/25 14:51) DIFFICULTY BREATHING perfume (PERFUME) Allergy (Intermediate, Verified 01/11/25 14:51) TRIGGERS ASTHMA prednisone Allergy (Intermediate, Verified 01/11/25 14:51) swelling fish derived Allergy (Unknown, Verified 01/11/25 14:51) Swelling nuts Adverse Reaction (Uncoded 01/11/25 14:51) Itching Medication List - Last Reconciled 01/11/25 by Rosendo Scanlon MD albuterol sulfate 2.5 mg (3 mL) inhalation Q4H PRN 30 days albuterol sulfate 90 mcg/actuation 2 inhalations inhalation Q6H PRN 30 days aripiprazole 2 mg PO DAILY azelastine 2 sprays intranasal BID 30 days cholecalciferol (vitamin D3) 125 mcg PO DAILY clonazepam 1 mg PO BID PRN commode As directed esomeprazole magnesium 40 mg PO DAILY fluoxetine 20 mg PO DAILY fluticasone propionate 50 mcg/actuation (Flonase Allergy Relief) 1 spray intranasal DAILY 30 days ceqkkmnphjw-klnkxblio-odwvcrqa 200-62.5-25 mcg (Trelegy Ellipta) 1 inh inhalation DAILY 30 days hydrochlorothiazide 25 mg PO QAM hydrocortisone 2.5% (Proctosol HC) 1 appl CA BID hydroxyzine HCl 50 mg PO BID linaclotide (Linzess) 72 mcg PO QAM montelukast 10 mg PO DAILY nebulizers (AeroEclipse II Nebulizer) As directed oxymetazoline 0.05% (Afrin (oxymetazoline)) 2 sprays intranasal Q12H PRN 5 days pregabalin (Lyrica) 200 mg PO BID 30 days pseudoephedrine HCl ER (12 Hour Decongestant ER) 120 mg PO Q12H Qsymia 3.75-23 mg ER (phentermine-topiramate) 1 capsule in the morning for 2 weeks, if no side effects, increase to 2 tablets orally daily; 30 days NS Shower Chair As directed sucralfate (Carafate) 2 grams (2 x 1 gram) PO QNOON tiotropium bromide 2.5 mcg/actuation (Spiriva Respimat) 2 puffs PO DAILY tramadol 50 mg PO Q12H 30 days walker As directed zolpidem 10 mg PO BEDTIME PRN PFSH Medical History Right knee pain Tracheobronchitis Physical exam Skin lesion Hypertension Left foot pain Chronic cough Right elbow pain Morbid obesity Generalized anxiety disorder Asthma Hypovitaminosis D Mild recurrent major depression Pleuritic chest pain COVID-19 Breast pain, left Sinusitis Low back pain Polyarthralgia Ophthalmoplegic migraine Menieres disease Frequent falls RBBB (right bundle branch block) Leg edema Breast mass, right Left elbow pain Fibromyalgia Ankle pain, right Labial lesion Rectal bleeding H. pylori duodenitis Submandibular lymphadenopathy Chronic neck pain AIRAM (obstructive sleep apnea) Panic attacks Surgical History S/P arthroscopic surgery of right knee History of endoscopy History of colonoscopy History of cholecystectomy History of hysterectomy History of tubal ligation History of section History of carpal tunnel surgery of right wrist Family History Father Oral cancer Thyroid cancer Colon cancer Mother NIDDY (non-insulin dependent diabetes mellitus in young) Gastric ulcer Paternal Grandfather Colon cancer Paternal Uncle Colon cancer Other Family history of colon cancer in father Social History Housing: House Are you a primary career placement services counselor to a significant other at home: No Alcohol intake: never Patient Tobacco Use Status: Never used Tobacco e-Cigarette/Vaping Use: Never Used Second Hand Smoke Exposure: No service: No Current occupational status: unemployed Sexual orientation: Straight/Heterosexual Gender identity: Female Cognitive needs: No Hearing needs: No Vision needs: Yes Physical Exam Vital Signs: BMI result Body Mass Index 34.9 Const Other: Well-nourished well-developed very friendly female awake alert and oriented x3 in no acute distress Extrem Other: Right knee examination shows that the surgical incisions are well healed, no erythema, mild crepitus with range of motion, negative Eddi's test, no instability Assessment & Plan Assessment & Plan (1) Osteoarthritis of right knee: Code(s): M17.11 - Unilateral primary osteoarthritis, right knee Category: Medical Plan Ms. Trip Garland is doing fairly well after undergoing right knee arthroscopic surgery on 09/22/2024. She does have residual discomfort due to early osteoarthritis. I had a lengthy discussion with the patient regarding the treatment options. We will hold off on an injection at this time. I did give her a prescription for a Medrol Dosepak. She will continue with her activity modifications. She will contact me prior to her follow-up appointment in 6-8 weeks should any questions or concerns arise. Feel free to call me at any time should questions regarding her orthopedic management arise. I spent 22 minutes in reviewing the patient's records and imaging studies, seeing the patient and documenting in the medical record. Medications: New methylprednisolone (Medrol (Francis)) PO PER PKG DIR 21 ea 0RF Coding Level of Care Code Est Pt Level 3 (17672) Complex EM visit Add On G2211 Diagnoses Osteoarthritis of right knee M17.11
== END 2025-01-11 15:03 | disposition home or self-care (01) ==
LOC: HO.HOS 14:41
PROVIDERS: PCP Internal Medicine; Visit Provider Orthopaedic Surgery
DX: M17.11 Unilateral primary osteoarthritis, right knee (principal)
CPT/HCPCS: 99213

== ENCOUNTER → 2025-01-11 14:40 | Outpatient (BNVA) | payer OTHER, SELFPAY | PROVIDERS: PCP Internal Medicine; Visit Provider Orthopaedic Surgery | DX: M17.11 Unilateral primary osteoarthritis, right knee (principal) | CPT/HCPCS: 99212 ==

== ENCOUNTER 2025-01-22 08:24 | Day surgery (SDC) | payer OTHER, SELFPAY ==
--- OUTSIDE RECORDS SUMMARY | 2024-12-20 06:49 | XMS_ITS | Clinical Summary ---
Author Organization 175 [facility] Address [address] [place] [address] Phone Care Team Providers Care Pump Rebuilder Name Role Phone Trisha Aaron MD Primary Care Provider [phone] Allergies Active Allergy Reactions Criticality Noted Date [...] obesity with BMI of 4 0.0-44.9, adult (CMS/[facility] V24, [facility] V28) 01/27/2024 Asthma 04/06/2018 AIRAM (obstructive sleep apnea) 04/06/2018 Overview (01/27/2024): 10/2018 Home Sleep Study did not reveal sleep apnea or nocturnal hypoxia. Encounters Date Type Department Care Team Description 11/27/2024 2:00 PM EDT Office Visit Orthopedic Surgery [facility] [address] [phone] Kenneth Bucio DPM Peroneal tendinitis of left lower extremity (Primary Dx); Disorder of ligament of ankle, left 11/13/2024 2:15 PM EDT Office Visit Orthopedic Surgery [facility] [address] [phone] Kenneth Bucio DPM Peroneal tendinitis of left [...] Final Result from Last [address] [place] [address] PLAN Care Teams Pump Rebuilder Relationship Specialty Start Date End Date Trisha Aaron MD 2 [facility] , [address] [facility] Physician Associ D/B/A: [facility] PCP - General Internal Medicine 12/31/17
--- NOTE | 2025-01-22 07:44 | MHC.SHP ---
Pre-Procedural Eval Section A - 24 Hr Update-Section A only Date of Service: 01/22/25 The patient is an INPATIENT: No Changes since office visit: No Cold of Flu in the past 2 weeks, No New Medical Problems, No Changes in Medication and No Patient answered all questions The patient has been examined within 24 hours of the surgical procedure. The History & Physical has been completed within 30 days and I have reviewed it.: Yes Section B - Complete if H&P > 30 days Chief Complaint: Carpal tunnel syndrome, right upper limb Allergies: Allergies Allergy/AdvReac Type Severity Reaction Status Date / Time Iodinated Contrast Media (IV Allergy Severe ANAPHYLAXIS Verified 01/11/25 14:51 CONTRAST) cyclobenzaprine (From Allergy Intermediate NUMBNESS Verified 01/11/25 14:51 FLEXERIL) gadobutrol (From GADAVIST) Allergy Intermediate DIFFICULTY Verified 01/11/25 14:51 BREATHING perfume (PERFUME) Allergy Intermediate TRIGGERS Verified 01/11/25 14:51 ASTHMA prednisone Allergy Intermediate swelling Verified 01/11/25 14:51 fish derived Allergy Unknown Swelling Verified 01/11/25 14:51 nuts AdvReac Itching Uncoded 01/11/25 14:51 Plan Diagnosis/Plan: Unchanged I have reviewed the history and physical and performed a pertinent physical examination on my patient. No changes have occurred unless specified. Time Spent With Patient Time: Total time managing care of this patient today ____ minutes.
--- NOTE | 2025-01-22 07:44 | W.PM.OPN ---
Operative Note Operative Note Date of Service: 01/22/25 Narrative: Preop diagnosis: 1. Left Carpal tunnel syndrome Postop diagnosis: same Procedure: 1. Left Carpal tunnel release Surgeon: Romana Feldman MD Vocational Rehabilitation Technician: Zana ORTIZ Anesthesia: local block using 1% lidocaine with epinephrine Findings: Thickened transverse carpal ligament. EBL: Less than 5 mL Specimens: None Complications: None Disposition: Brought to recovery room in stable condition Plan: Follow-up for 10-14 days for wound check and suture removal Indications: The patient is 44 years old, with left carpal tunnel syndrome that has been unresponsive to nonoperative management. The risks and benefits of operative treatment including but not limited to risk of damage to blood vessels, nerves, tendons, infection, persistent pain, persistent symptoms, or possible need for additional surgery were discussed with the patient and the patient wishes to proceed with surgery. Procedure: Once consent was obtained a local block was performed using a combination of 1% lidocaine with epinephrine. The patient was then brought back to the operating suite and placed on the operative table in supine position. The left upper extremity was prepped and draped in a standard surgical fashion. Once assured that we had a good block, a 2.0 cm longitudinal incision was made centered over the left carpal tunnel. The incision was made through the skin to the subcutaneous tissues using a #15 blade. Dissection was made down to the level of the transverse carpal ligament with care being taken to protect the palmar cutaneous nerve. Once the transverse carpal ligament was clearly visualized, a longitudinal incision was made in the transverse carpal ligament 1st using a #15 blade, then using tenotomy scissors under direct visualization. Care was taken to look for and protect the motor branch of the median nerve when seen in this area. Once satisfied with our carpal tunnel release the wound was copiously irrigated with normal saline and hemostasis was obtained with a brief period of local pressure. The skin edges were reapproximated with some 5.0 nylon suture material and a sterile dressing was applied. The patient appears to have tolerated the procedure well and with no complications. All digits were well vascularized at the conclusion of the case.
[2025-01-22 08:33] VITALS: BP 112/58; PULSE 71; RESP 16; TEMP 35.9; O2SAT 99; BMI 32.9
--- NOTE | 2025-01-22 08:55 | MHC.SHP ---
Pre-Procedural Eval Section A - 24 Hr Update-Section A only Date of Service: 01/22/25 The patient is an INPATIENT: No Changes since office visit: No Cold of Flu in the past 2 weeks, No New Medical Problems, No Changes in Medication and No Patient answered all questions The patient has been examined within 24 hours of the surgical procedure. The History & Physical has been completed within 30 days and I have reviewed it.: Yes Section B - Complete if H&P > 30 days Chief Complaint: Carpal tunnel syndrome, left Allergies: Allergies Allergy/AdvReac Type Severity Reaction Status Date / Time Iodinated Contrast Media (IV Allergy Severe ANAPHYLAXIS Verified 01/11/25 14:51 CONTRAST) cyclobenzaprine (From Allergy Intermediate NUMBNESS Verified 01/11/25 14:51 FLEXERIL) gadobutrol (From GADAVIST) Allergy Intermediate DIFFICULTY Verified 01/11/25 14:51 BREATHING perfume (PERFUME) Allergy Intermediate TRIGGERS Verified 01/11/25 14:51 ASTHMA prednisone Allergy Intermediate swelling Verified 01/11/25 14:51 fish derived Allergy Unknown Swelling Verified 01/11/25 14:51 nuts AdvReac Itching Uncoded 01/11/25 14:51 Plan I have reviewed the history and physical and performed a pertinent physical examination on my patient. No changes have occurred unless specified. Time Spent With Patient Time: Total time managing care of this patient today ____ minutes.
[2025-01-22 09:36] VITALS: BP 117/71; PULSE 59; RESP 18; O2SAT 99
== END 2025-01-22 09:54 | disposition home or self-care (01) ==
PROVIDERS: PCP Physician Assistant; Visit Provider Orthopaedic Surgery
PROC: (CPT 64721; principal; 2025-01-22 08:30)
DX: G56.02 Carpal tunnel syndrome, left upper limb (principal); R20.0 Anesthesia of skin; R20.2 Paresthesia of skin; R07.9 Chest pain, unspecified; I45.10 Unspecified right bundle-branch block; I10 Essential (primary) hypertension; J45.909 Unspecified asthma, uncomplicated; E55.9 Vitamin D deficiency, unspecified; M79.7 Fibromyalgia; F33.0 Major depressive disorder, recurrent, mild; F41.1 Generalized anxiety disorder; F41.0 Panic disorder [episodic paroxysmal anxiety]; E66.01 Morbid (severe) obesity due to excess calories; Z68.34 Body mass index [BMI] 34.0-34.9, adult; G47.33 Obstructive sleep apnea (adult) (pediatric); Z91.041 Radiographic dye allergy status; Z88.8 Allergy status to other drugs, medicaments and biological substances; Z91.018 Allergy to other foods; Z91.013 Allergy to seafood; Z98.890 Other specified postprocedural states; Z56.0 Unemployment, unspecified
CPT/HCPCS: 64721; J0165; J2003

== ENCOUNTER → 2025-01-22 08:24 | Outpatient (BNV) | payer OTHER, SELFPAY | PROVIDERS: PCP Physician Assistant; Visit Provider Orthopaedic Surgery | DX: G56.02 Carpal tunnel syndrome, left upper limb (principal) | CPT/HCPCS: 64721 ==

== ENCOUNTER 2025-01-23 14:21 | Outpatient (AMB) | payer OTHER, SELFPAY ==
--- NOTE | 2025-01-23 14:32 | A.OFFVIS_ITS ---
Vital Signs 01/23/25 14:33 Height 5 ft 6 in Weight 217 lb 2.485 oz BMI 35.0 BP 122/84 Blood Pressure Location Rt brachial Position Sitting Pulse 77 Pulse Source Pulse Oximeter Pulse Oximetry (%) 96 Oxygen Delivery Method Room Air Intake Visit Reasons: Asthma Allergies Iodinated Contrast Media (IV CONTRAST) Allergy (Severe, Verified 01/23/25 15:22) ANAPHYLAXIS cyclobenzaprine (From FLEXERIL) Allergy (Intermediate, Verified 01/23/25 15:22) NUMBNESS gadobutrol (From GADAVIST) Allergy (Intermediate, Verified 01/23/25 15:22) DIFFICULTY BREATHING perfume (PERFUME) Allergy (Intermediate, Verified 01/23/25 15:22) TRIGGERS ASTHMA fish derived Allergy (Unknown, Verified 01/23/25 15:22) Swelling nuts Adverse Reaction (Uncoded 01/23/25 15:22) Itching HPI Comments Details: The patient is a 44 year old woman with a known history of severe persistent asthma. She had been on Advair both the Diskus in the HFA but resulted in adverse side effects. She can no longer uses medicines. A distant Symbicort and she did start using the medicine but has not been filled at the pharmacy as of yet. She is also using Spiriva. For the last month and have her respiratory status has been getting worse. She has had to go to urgent care and also to the ER twice. She was placed on prednisone twice. She has no better. She still havin g exacerbations of the breathing specially at nighttime. She has severe spells resulting in nausea and dry heaves. She is very concerned for the fact that she is not getting any better. She also complains of significant postnasal drip that is aggravating her symptoms. She is not sure of his allergy related or cold related. She has not had any blood work or x-rays recently. She did have a sleep study although very limited because it had only recorded a small amount of information. She states that she still has daytime drowsiness. She feels that she has significant snoring. And she does get tired during the daytime with an elevated Linden score of 12/24. We did do allergy testing but she will only tested positive for mild allergy to cockroaches the rest of the rest study was negative and her eosinophils were normal. Therefore she doesn't qualify for biologics. In the meantime she continues to have daytime drowsiness. She did have a sleep study done demonstrating severe sleep apnea. At this point based on her symptoms the patient needs to start CPAP therapy RODERICK. Arrangements will be made with local [email or web address] company to start CPAP therapy at this time. 05/21/2022 the patient is here for a pulmonary follow-up visit. She was doing well until 2 days ago when she started developing worsening cough. At some point her coughing was so significant that she lost her balance and she fell and hurt her right elbow. She definitely at [facility] approve it. The patient has been using her inhalers only with partial resolution of the symptoms. She feels like she is getting a cold and a respiratory illness. In the meantime she does continue to use her CPAP every night. The CPAP therapy continues to be affecting beneficial. She has been using her respiratory medications as prescribed. She was supposed to be on Daliresp for some reason is no longer on her list of medications. Therefore I will responded to the pharmacy. I am hopeful that with the Daliresp we can prevent prednisone for the patient and decrease her exacerbations. 08/11/2022 the patient is here for pulmonary follow-up visit. The patient just recently got back from [place]. When she was there she was sick likely with viral syndrome. She was evaluated urgent care was given prednisone and also course of antibiotics. The patient does have significant cough variant asthma. She has been on a very aggressive regimen including Daliresp in addition to Symbicort and Spiriva. For her cough she does respond well to the Bentson I's and also cough syrup. Will provide her other medications she continues stable. Unfortunately they just get a diagnosis of cancer and her nephew of 3 years old. This caused significant stress and has caused her respiratory symptoms to worsen. Will continue to manage her symptoms. In the meantime she also complains of a pleuritic type of discomfort primarily in the the right lung on the back area specially with taking deep breath. Will go and repeat a chest x-ray to make sure. She will also request allergy testing done to be done again in order to see if she is a candidate for biologic therapy in order to improve her respiratory capacity and asthma treatment. The patient continues use her CPAP every night. CPAP therapy has been affecting beneficial. She does use it for more than 4 hours a night. She has been getting supplies readily. 11/06/2022 the patient is here for a pulmonary follow-up visit. She continues to struggle with productive cough and chronic bronchitis. She is on optimize respiratory therapy at this time. We did blood work assessing her for potential biologics that the patient does not qualify as she does have a new and eosinophil count and normal IgE level. Therefore, will go ahead and start her on azithromycin for chronic bronchitis. She can take that 3 times a week. The patient is also having issues with sinus congestion and chronic sinusitis. She has tolerated Sudafed in the past. We also talked about Neti pot a rinsing as lungs is with distilled water. In 4 2-4 weeks she can try using budesonide to help her with the inflammatory disease. 02/11/2023 the patient is here for pulmonary follow-up visit. The patient has been having a very difficult time of the month of January. Had significant chest tightness cough and wheezing. She did not want to go to the ER. Although around mid January her symptoms got worse with chest discomfort and she called the ambulance with a took her to [facility] because of the chest pain and the possibility of acute coronary syndrome. When she was there she did have blood work done which was all normal and she had an x-ray that was normal and she waited. However, after several hours awaiting she left against medical advice. She still struggling with a cough. Still productive in nature. She has been using her nebulizer frequently. Will go ahead and treat her for subacute bronchitis. If the patient is no better she can [facility] 04/19/2023 the patient is here for a pulmonary follow-up visit. She is having hard time with her asthma. She has been using the Symbicort and the Spiriva. Although she does not feel like it is helping her much. She recently had an upper respiratory illness in image resulted in some swelling in the throat area. She had a hard time swallowing also breathing. She has a little better although she still feels that area abnormal. In addition to that she had a fall and she hurt her knee. She has been limping. She did have an x-ray of her knee and will be seeing orthopedic soon. will go ahead and optimize her respiratory therapy. 09/28/2023 the patient is here for a pulmonary follow-up visit. She still struggling with breathing. Has significant coughing spells and the coughing spells caused her to have worsening asthma symptoms and then she states that she develops like a panic attack. When that happens she is tends to freeze and then she needs help with getting her nebulizer treatments ready. Typically her nebulizer does help her but she does need to use it a few times a day. She has also using the Trelegy inhaler. We did talk about other alternatives including biologics although her IgE levels within normal limits and she does not have any evidence of any eosinophilia. I did give her information about test prior. The patient also complains of epigastric discomfort. She has had reflux in the past does not seem to have it as much anymore. Will go ahead and request a barium swallow in case she is having non acid reflux resulting in the coughing worsening asthma symptoms. In addition to that she was following the reflux diet and is going to be sleeping elevated. After the barium swallow patient should also have a GI evaluation. A referral was already placed. At this point will go ahead and start her on azithromycin that which would be a good promotility agent for her to help with GI issues in addition to improving the chronic bronchitis symptoms that she developing with a cough. She should have an EKG done specially since she takes an SSRI make sure that there has no significant QT abnormalities. The patient will go ahead and continue the medicine for about 6-8 weeks and follow-up at that point. If she has no better she can always call. We did give her information about the Tezspire that if she has no better that be the other option. 12/21/2023 the patient is here for a pulmonary follow-up visit. Since we last spoke the patient had an asthma attack while in [place]. She was taken to the hospital. they wanted to admit her to the hospital but she was concerned because of lack of insurance in the cost of her hospital bills. Therefore she left against medical advice. She continued prednisone taper along with her nebulizer treatments. She was able to get better. Subsequently she came back to the [facility]. She went on another trip. During that trip she did get a cold and she was concerned about her asthma that started acting up. Therefore, she did start some prednisone again for short course. She continues to go on and off prednisone unfortunately. She does have uncontrolled asthma. She has been medically optimize maximize maximize all her respiratory inhalers. At this point she is still having frequent flare-ups. Therefore, she will be a good candidate for biologics. I do believe that test viral be a good option for her. I am going to requested from her [email or web address] company. The patient had been on azithromycin 3 times a week as well. Her EKG did show a right bundle branch block. This appears to be a chronic finding for her. She can come off the azithromycin anyways at this time. She continues use her CPAP. CPAP therapy has been affecting beneficial. She does try to use it more than 4 hours a night. Sometimes she falls off the routine. I did emphasize to her that is important for her to use it to minimize cardiovascular risk factors. 01/10/2024 the patient is here for sick visit. She was just here about a month ago. She states that that after the visit she went home she started coughing. She started developing significant chest tightness. She started using jaum-ryy-fcmtdyc medications. Ultimately she did have some leftover prednisone she took that with some partial relief. And then she did call the office and we did send her cough medication which she did take. Although has not been working for her. Her cough is pretty severe. His causing her to be up at nighttime. She states that she had never been this sick with her cough although she has had a chronic cough most of her life. Denies any fevers or chills. She does complaint of the headache because of all the coughing. Sometimes she does develop some stridor. I suspect that she has Will been cough. Although could also be a postviral bacterial pneumonia. Therefore going to treat her with combination antibiotics and also she will receive Solu-Medrol IM x1 and then going prednisone course. The patient will have a chest x-ray to this well. She will continue with a cough suppressant. The patient will start the therapy and will call if no better in 48 hours. 04/07/2024 the patient is here for a sick visit. She started developing a cough again. Productive in nature. Complains of sinus pressure. Also feels like her asthma is not controlled. She has been using her respiratory medicines. Right now she is not wheezing. Sounds to be more of sinusitis. She also was supposed to start Tezspire. She has not done as of now. She is going to go ahead and call to make sure that it scheduled in order for her to start her biologic therapy. Is the patient has no more she will call for further evaluation. For now she will continue with current respiratory regimen. 10/09/2024 the patient is here for pulmonary follow-up visit. Overall she is doing okay. Back in [facility] which was visiting a few months ago she did have an asthma flare-up but she needed prednisone. She is now back to her baseline. She does use prednisone regularly because of her severe persistent asthma with frequent flare-ups. She was supposed to start Tezspire, but she became concerned with the potential biologic adverse effects. Prior to her starting the medication she had gotten sick and then after that she decided to hold off. She recently did have blood work demonstrating significant eosinophilia during the last CBC with differential that she had. Therefore, she is willing to try Fasenra. I do believe that explained to her that since it has been around for little bit longer be safe for her to use. It does not carry as much side effects either. She is willing to try specially with the ongoing asthma symptoms. She continues use her CPAP every night CPAP therapy has been affecting beneficial. 01/23/2025 the patient is here for pulmonary follow-up visit. Overall she is doing fair. Recently had surgery for her carpal tunnel on her hand. She is recovering now. It is very painful. From an asthma standpoint the patient has been okay now. She was having issues with her asthma several weeks ago. She was given prednisone and her symptoms did improve. She was supposed to start Fasenra but the patient is not able to start the Fasenra because she had a fall and resulting in injury to her knee. And then she needed her hand surgery. Therefore she is still recovering from her surgeries and has been having significant issues with her psychosocial issues. Therefore, the patient has not started the injection and she will likely started when she recovers from a hand surgery. For now she is off the prednisone which is reassuring she continues her respiratory inhalers as prescribed. She has lost weight so therefore she is sleeping better and denies any snoring. She is holding onto the CPAP and her Linden score is decrease that 6 episodes [facility] Medical History Right knee pain Tracheobronchitis Physical exam Skin lesion Hypertension Left foot pain Chronic cough Right elbow pain Morbid obesity Generalized anxiety disorder Asthma Hypovitaminosis D Mild recurrent major depression Pleuritic chest pain COVID-19 Breast pain, left Sinusitis Low back pain Polyarthralgia Ophthalmoplegic migraine Menieres disease Frequent falls RBBB (right bundle branch block) Leg edema Breast mass, right Left elbow pain Fibromyalgia Ankle pain, right Labial lesion Rectal bleeding H. pylori duodenitis Submandibular lymphadenopathy Chronic neck pain AIRAM (obstructive sleep apnea) Panic attacks Surgical History S/P arthroscopic surgery of right knee History of endoscopy History of colonoscopy History of cholecystectomy History of hysterectomy History of tubal ligation History of section History of carpal tunnel surgery of right wrist Family History Father Oral cancer Thyroid cancer Colon cancer Mother NIDDY (non-insulin dependent diabetes mellitus in young) Gastric ulcer Paternal Grandfather Colon cancer Paternal Uncle Colon cancer Other Family history of colon cancer in father Social History Housing: House Are you a primary neonatal intensive care unit nurse to a significant other at home: No Alcohol intake: never Comment: counts correct Patient Tobacco Use Status: Never used Tobacco e-Cigarette/Vaping Use: Never Used Second Hand Smoke Exposure: No service: No Current occupational status: unemployed Sexual orientation: Straight/Heterosexual Gender identity: Female Cognitive needs: No Hearing needs: No Vision needs: Yes Review of Systems Const Denies chills, Reports daytime sleepiness, Reports difficulty sleeping, Denies fever(s), Reports headache(s), Reports malaise and Denies night sweats ENT Denies change in voice, Reports headache(s), Denies mouth pain, Reports nasal congestion, Reports nasal discharge, Denies sinus pain, Denies sinus pressure and Denies tongue swelling Card Denies chest pain, Denies dyspnea and Reports dyspnea on exertion Resp Reports change in phlegm color, Reports chest congestion, Reports cough, Reports hemoptysis, Reports excessive phlegm production, Denies dyspnea, Reports dyspnea on exertion and Reports wheezing GI Denies abdominal pain, Reports dyspepsia and Reports heartburn Musc Reports as per HPI, Reports abnormal gait, Reports arthralgias and Reports joint swelling Neuro Denies Neuro-related abnormal movements, Reports abnormal gait and Reports headache(s) Psych Denies no additional complaints Jacob/Lymph Denies easy bleeding and Denies lymphadenopathy Aller/Immun Denies tongue swelling and Reports wheezing Physical Exam Vital Signs: Last Vital Signs Pulse 77 01/23/25 14:33 Pulse Ox 96 01/23/25 14:33 Oxygen Delivery Method Room Air 01/23/25 14:33 BMI result Body Mass Index 35.0 Const General: alert and awake Orientation/consciousness: patient oriented x3 HEENT Head: Yes normal to inspection Face and sinus: Yes sinuses nontender Mouth: oropharynx normal Throat: Yes posterior oropharynx normal Eyes General: appearance normal, both eyes and all related structures Neck Neck: Yes normal visual inspection, Yes no lymphadenopathy, Yes trachea midline and Yes no JVD Chest Chest palpation & inspection: normal inspection of the chest, normal palpation of entire chest wall and no tenderness Resp Effort & Inspection: normal respiratory effort and No prolonged expiratory phase Auscultation: no wheezes and diminished lung sounds Cardio Palpation: normal PMI Rate: regular rate Rhythm: regular rhythm Heart sounds: no gallops and no murmurs GI Palpation (GI): Soft to palpation, nontender, No hepatosplenomegaly present, no masses and Other GI palpation findings present (Abdomen is obese and protuberant) Auscultation: normal bowel sounds Skin General skin exam: no rashes or lesions noted Neuro General: patient oriented x3 and no focal motor deficits Cranial nerves: Yes CN's II-XII intact bilaterally Extrem General: Yes no calf tenderness Right upper extremity: Extremity exam: right hand Details: other (sami bandage) Psych Speech and movement: Normal speech and movement present Affect: Anxious affect present Assessment & Plan Assessment & Plan (1) Asthma: Code(s): J45.909 - Unspecified asthma, uncomplicated Category: Medical Qualifiers: Asthma complication type: uncomplicated Asthma persistence: persistent Asthma severity: severe Qualified Code(s): J45.50 - Severe persistent asthma, uncomplicated (2) AIRAM (obstructive sleep apnea): Comment: (mild AIRAM, AHI 10.1 on 08/22/17 sleep study) Code(s): G47.33 - Obstructive sleep apnea (adult) (pediatric) Category: Medical (3) Cough: Code(s): R05.9 - Cough, unspecified Category: Medical Qualifiers: Cough type: chronic Qualified Code(s): R05.3 - Chronic cough (4) Chronic allergic rhinitis: Code(s): J30.9 - Allergic rhinitis, unspecified Category: Medical (5) Chronic cough: Code(s): R05.3 - Chronic cough Category: Medical Plan continue Trelegy 200 daily continue Dairesp Has not started Fasenra continue nebulizer therapy cough medine: Tessalon pearls holding CPAP therapy, adjusted from 4-12 to 6-10 with ramp 4 consider barium swallow F/U 6 months Medications: New roflumilast (Daliresp) 500 mcg PO DAILY 90 tabs 3RF 90 days Refilled albuterol sulfate 90 mcg/actuation 2 inhalations inhalation Q6H PRN 18 grams 12RF shortness of breath or wheezing 30 days J44.9 - Chronic obstructive pulmonary disease, unspecified, J45.909 - Unspecified asthma, uncomplicated Coding Level of Care Code Est Pt Level 4 (74443) Complex EM visit Add On G2211 Diagnoses Severe persistent asthma without complication J45.50 Asthma complication type: uncomplicated Asthma persistence: persistent Asthma severity: severe IARAM (obstructive sleep apnea) G47.33 Chronic cough R05.3 Cough type: chronic Chronic allergic rhinitis J30.9 Chronic cough R05.3 Time Spent (min) 16
[2025-01-23 14:33] VITALS: BP 122/84; PULSE 77; O2SAT 96; BMI 35.0
--- OUTSIDE RECORDS SUMMARY | 2025-01-23 19:27 | XMS_ITS | Clinical Summary ---
Author Organization [address] [facility] Address [address] [place] [address] Phone Care Team Providers Care Lang Interpreter Name Role Phone Trisha Aaron MD Primary Care Provider [phone] Allergies Active Allergy Reactions Criticality Noted Date [...] obesity with BMI of 4 0.0-44.9, adult (CMS/[facility] V24, [facility] V28) 01/27/2024 Asthma 04/06/2018 AIRAM (obstructive sleep apnea) 04/06/2018 Overview (01/27/2024): 10/2018 Home Sleep Study did not reveal sleep apnea or nocturnal hypoxia. Encounters Date Type Department Care Team Description 12/29/2024 Telephone Thoracic Surgery - [place] [address] [place] [address] [place] 11/27/2024 2:00 PM EDT Office Visit Orthopedic Surgery [facility] [address] [phone] Kenneth Bucio DPM Peroneal tendinitis of left lower extremity (Primary Dx); Disorder of ligament of ankle, left 11/13/2024 2:15 PM EDT Office Visit Orthopedic Surgery [facility] [address] [phone] Kenneth Bucio DPM Peroneal tendinitis of left lower extremity (Primary Dx); Disorder of ligament of ankle, left; Arthritis of left subtalar joint; Capsulitis of left foot from Last 3 Months Immunizations Immunization Administration Dates Next Due Influenza Quadravalent, MDCK , 0.5ml, preservative free (Flucelvax) 6mo and older 04/06/2018 Surgical History Surgery Date Site/Laterality Comments OTHER SURGICAL HISTORY PROCEDURE: OR ARTHRS WRST EXC&/RPR TRIANG FIBROCART&/JOINT SECTION PROCEDURE: [...] Upcoming Encounters Date Type Department Care Team (Latest Contact Info) Description 04/20/2025 7:30 AM EST Hospital Encounter [facility] Main OR [address] [place] [phone] Kenneth Bucio DPM [address] [address] 04/20/2025 7:30 AM EST - 04/20/2025 10:00 AM EST Surgery [facility] Main OR [address] [place] [phone] Kenneth Bucio DPM [address] [id number] LEFT ANKLE LATERAL STABILIZATION [26036 (CPT )] 05/03/2025 10:00 AM EST Office Visit Orthopedic Surgery - [place] [address] [phone] Kenneth Bucio DPM [address] [address] Scheduled Procedures Name Priority Associated Diagnoses Date/Ti me STABILIZATION ANKLE LATERAL Peroneal tendinitis of left lower extremity Disorder of ligament of ankle, left 04/20/2025 7:30 AM EST REPAIR TENDON LEG Peroneal tendinitis of left lower extremity Disorder of ligament of ankle, left 04/20/2025 7:30 AM EST Health Maintenance Due Date Last Done Comments [...] Final Result from Last 3 Months Insurance [employer] Care Teams Lang Interpreter Relationship Specialty Start Date End Date Trisha Aaron MD [address] [place] [address] , [address] [facility] D/B/A: [facility] PCP - General Internal Medicine 12/31/17
== END 2025-01-23 14:51 | disposition home or self-care (01) ==
LOC: HO.HPS 14:22
PROVIDERS: PCP Physician Assistant; Visit Provider Hospitalist
DX: J45.50 Severe persistent asthma, uncomplicated (principal); G47.33 Obstructive sleep apnea (adult) (pediatric); R05.3 Chronic cough; J30.9 Allergic rhinitis, unspecified
CPT/HCPCS: 99214

== ENCOUNTER → 2025-01-23 14:21 | Outpatient (BNVA) | payer OTHER, SELFPAY | PROVIDERS: PCP Physician Assistant; Visit Provider Hospitalist | DX: J45.50 Severe persistent asthma, uncomplicated (principal); M79.661 Pain in right lower leg; M79.662 Pain in left lower leg; I83.12 Varicose veins of left lower extremity with inflammation; G47.33 Obstructive sleep apnea (adult) (pediatric); R05.3 Chronic cough; J30.9 Allergic rhinitis, unspecified | CPT/HCPCS: 99212 ==

== ENCOUNTER 2025-01-23 15:01 | Outpatient (AMB) | payer OTHER, SELFPAY ==
[2025-01-23 15:17] VITALS: BMI 35.0
--- NOTE | 2025-01-23 15:17 | MHC.OFFVIS ---
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 worsening about 5 months ago but started many years ago. Pt states its a nagging pain with itching. Land Degradation Analyst Required: Yes Land Degradation Analyst Language: Tipple Boss Services: Land Degradation Analyst Present Land Degradation Analyst Name: Katya Leong Accompanied by: Daughter Allergies Iodinated Contrast Media (IV CONTRAST) Allergy (Severe, Verified 01/23/25 15:22) ANAPHYLAXIS cyclobenzaprine (From FLEXERIL) Allergy (Intermediate, Verified 01/23/25 15:22) NUMBNESS gadobutrol (From GADAVIST) Allergy (Intermediate, Verified 01/23/25 15:22) DIFFICULTY BREATHING perfume (PERFUME) Allergy (Intermediate, Verified 01/23/25 15:22) TRIGGERS ASTHMA fish derived Allergy (Unknown, Verified 01/23/25 15:22) Swelling nuts Adverse Reaction (Uncoded 01/23/25 15:22) Itching HPI HPI 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 Complaints include pain over varicosities, swelling of lower extremities, cramping, fatigue, and heaviness of the lower extremities. It has been affecting there daily activities including walk. It is noted more so in left leg. In particular concerned about left lateral thigh spider telangiectasia cluster Patient denies any previous venous surgery or injections. Patient denies any history of DVT/ PE. Patient denies any history of phlebitis. Trial of compression includes - [id number] They now present for vascular evaluation regarding their varicose veins. [facility] Medical History Right knee pain Tracheobronchitis Physical exam Skin lesion Hypertension Left foot pain Chronic cough Right elbow pain Morbid obesity Generalized anxiety disorder Asthma Hypovitaminosis D Mild recurrent major depression Pleuritic chest pain COVID-19 Breast pain, left Sinusitis Low back pain Polyarthralgia Ophthalmoplegic migraine Menieres disease Frequent falls RBBB (right bundle branch block) Leg edema Breast mass, right Left elbow pain Fibromyalgia Ankle pain, right Labial lesion Rectal bleeding H. pylori duodenitis Submandibular lymphadenopathy Chronic neck pain AIRAM (obstructive sleep apnea) Panic attacks Surgical History S/P arthroscopic surgery of right knee History of endoscopy History of colonoscopy History of cholecystectomy History of hysterectomy History of tubal ligation History of section History of carpal tunnel surgery of right wrist Family History Father Oral cancer Thyroid cancer Colon cancer Mother NIDDY (non-insulin dependent diabetes mellitus in young) Gastric ulcer Paternal Grandfather Colon cancer Paternal Uncle Colon cancer Other Family history of colon cancer in father Social History Housing: House Are you a primary care connector to a significant other at home: No Alcohol intake: never Comment: counts correct Patient Tobacco Use Status: Never used Tobacco e-Cigarette/Vaping Use: Never Used Second Hand Smoke Exposure: No service: No Current occupational status: unemployed Sexual orientation: Straight/Heterosexual Gender identity: Female Cognitive needs: No Hearing needs: No Vision needs: Yes Review of Systems Const Reports as per HPI ENT Reports no additional complaints Card Denies chest pain, Denies chest pain at rest and Denies chest pain with activity Resp Denies chest congestion and Denies cough GI Reports no additional complaints Musc Details: pain over varicosities, aching of lower extremities, swelling, cramping, heaviness and tiredness, itching Denies abnormal gait Skin/Breast Reports pruritus and Denies wounds Neuro Reports no additional complaints and Denies abnormal gait Psych Denies no additional complaints Physical Exam Vital Signs: BMI result Body Mass Index 35.0 Const General: cooperative, healthy appearing and comfortable Orientation/consciousness: oriented to person, oriented to place and oriented to time Neck Carotids: no bruits Chest Chest palpation & inspection: normal inspection of the chest and normal palpation of entire chest wall Resp Effort & Inspection: normal respiratory effort and able to speak in complete sentences Cardio Rate: regular rate Heart sounds: S1 normal heart sound present and S2 normal heart sound present Peripheral pulses: Peripheral pulses 2+ throughout GI Inspection: Yes normal to inspection Skin Other: +2 edema, spider telangiectasias left lateral thigh CEAP Classification C4 - skin color changes Ep - Etiology Primary As - superficial veins P - reflux General skin exam: dry skin Neuro General: oriented to person, oriented to place and oriented to time Extrem Right lower extremity: full ROM, normal capillary refill and edema Left lower extremity: full ROM, normal capillary refill and edema Psych Mental Status: mental status grossly normal Assessment & Plan Assessment & Plan (1) Varicose veins of left lower extremity with inflammation: Code(s): I83.12 - Varicose veins of left lower extremity with inflammation Category: Medical Plan: In short, the patient has evidence of venous insufficiency. I have discussed the pathophysiology with the patient. In addition I have provided informational material regarding venous disease to the patient. We have discussed conservative measures including compression, elevation, and exercise. I have also provided a handout regarding appropriate use of compression stockings and where to purchase good compression stockings as well. I have taken the liberty of ordering venous insufficiency testing with the patient. They will follow up with me after testing. The patient had an opportunity to ask questions regarding the treatment plan. All questions were answered. Imaging studies, laboratory studies and physical exam results were discussed and reviewed in detail. No major barriers to understanding were identified. The patient expressed understanding and agreement with the above treatment plan. The patient is aware they should contact our office by phone for worsening of the current condition or the appearance of new symptoms. Thank you for allowing me to participate in the vascular care of this patient. If you have any questions or concerns regarding the treatment for the above condition please do not hesitate to contact me. The office telephone contact is [phone]. This note is constructed using voice recognition software. While every effort has been made to ensure accuracy, employment advisor errors may have been included. Thank you for allowing me to participate in the care of your patient. Yours sincerely, Marcos Tripp MD, FACS, R.P.V.I. Orders: Orders US venous duplex LE BI Today I83.12 - Varicose veins of left lower extremity with inflammation Coding Level of Care Code Est Pt Level 4 (05674) Diagnoses Varicose veins of left lower extremity with inflammation I83.12
== END 2025-01-23 15:34 | disposition home or self-care (01) ==
LOC: HO.HVS 15:01
PROVIDERS: Visit Provider Surgery Vascular Surgery
DX: I83.12 Varicose veins of left lower extremity with inflammation (principal)
CPT/HCPCS: 99214

== ENCOUNTER 2025-01-26 17:15 | Emergency (ER) | payer OTHER, SELFPAY ==
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
[2025-01-26 17:34] VITALS: BP 129/79; PULSE 88; RESP 18; TEMP 36.3; O2SAT 99; BMI 34.6
--- OUTSIDE RECORDS SUMMARY | 2025-01-26 19:20 | XMS_ITS | Clinical Summary ---
Author Organization [address] [facility] Address [address] [place] [address] Phone Care Team Providers Care Book Agent Name Role Phone Trisha Aaron MD Primary Care Provider [phone] Allergies Active Allergy Reactions Criticality Noted Date [...] obesity with BMI of 4 0.0-44.9, adult (CMS/[facility] V24, [facility] V28) 01/27/2024 Asthma 04/06/2018 AIRAM (obstructive sleep apnea) 04/06/2018 Overview (01/27/2024): 10/2018 Home Sleep Study did not reveal sleep apnea or nocturnal hypoxia. Encounters Date Type Department Care Team Description 12/29/2024 Telephone Thoracic Surgery - [place] [address] [place] [address] [place] 11/27/2024 2:00 PM EDT Office Visit Orthopedic Surgery [facility] [address] [phone] Kenneth Bucio DPM Peroneal tendinitis of left lower extremity (Primary Dx); Disorder of ligament of ankle, left 11/13/2024 2:15 PM EDT Office Visit Orthopedic Surgery [facility] [address] [phone] Kenneth Bucio DPM Peroneal tendinitis of left lower extremity (Primary Dx); Disorder of ligament of ankle, left; Arthritis of left subtalar joint; Capsulitis of left foot from Last 3 Months Immunizations Immunization Administration Dates Next Due Influenza Quadravalent, MDCK , 0.5ml, preservative free (Flucelvax) 6mo and older 04/06/2018 Surgical History Surgery Date Site/Laterality Comments OTHER SURGICAL HISTORY PROCEDURE: TX ARTHRS WRST EXC&/RPR TRIANG FIBROCART&/JOINT SECTION PROCEDURE: [...] Description 04/20/2025 7:30 AM EST Hospital Encounter [facility] OR [address] [place] [phone] Kenneth Bucio DPM [address] [address] 04/20/2025 7:30 AM EST - 04/20/2025 10:00 AM EST Surgery [facility] Main OR [address] [place] [phone] Kenneth Bucio DPM [address] [address] LEFT ANKLE LATERAL STABILIZATION [35693 (CPT )] 05/03/2025 10:00 AM EST Office Visit Orthopedic Surgery - [place] [address] [phone] Kenneth Bucio DPM [address] [address] Scheduled Procedures Name Priority Associated Diagnoses Date/Ti [...] Final Result from Last 3 Months Insurance [employer] PL[employer] Care Teams Book Agent Relationship Specialty Start Date End Date Trisha Aaron MD [address] [place] [address] , [address] [facility] D[facility]A: [facility] PCP - General Internal Medicine 12/31/17
--- OUTSIDE RECORDS SUMMARY | 2025-01-26 19:20 | XMS_ITS | Encounter Summary ---
Author Organization [employer] [facility] Address [address] [place] [address] Care Team Providers Care Agricultural Commodities Grader Name Role Phone Trisha Aaron MD Primary Care Provider Mona bui Reason for Visit * Reason Comments E-prescribe Rx Request Encounter Details Date Type Department Care Team Description 01/02/2019 Refill OBGYN - [address] [facility] [address] [place] [address] Monica Emanuel CNM [address] [place] [address] E-prescribe Rx Request Social History Tobacco Use Types Packs/Day Years Used Date Smoking Tobacco: Never Smokeless Tobacco: Never Sex Assigned at Date Recorded Not on file documented as of this encounter Plan of Treatment Not on file documented as of this encounter Visit Diagnoses Not on filedocumented in this encounter Care Teams Agricultural Commodities Grader Relationship Specialty Start Date End Date Trisha Aaron MD PCP - General Internal Medicine 12/31/17 documented as of this encounter
--- OUTSIDE RECORDS SUMMARY | 2025-01-26 19:20 | XMS_ITS | Encounter Summary ---
Author Organization [email or web address] [facility] Address [facility] [place] [address] Care Team Providers Care Automation And Control Engineer Name Role Phone Trisha Aaron MD Primary Care Provider Mona bui Encounter Details Date Type Department Care Team Description 04/28/2019 Hospital Medical Records [address] [place] [address] Ya Ramírez, Social History Tobacco Use Types [...] on filedocumented in this encounter Care Teams Automation And Control Engineer Relationship Specialty Start Date End Date Trisha Aaron MD PCP - General Internal Medicine 12/31/17 documented as of this encounter
--- OUTSIDE RECORDS SUMMARY | 2025-01-26 19:20 | XMS_ITS | Encounter Summary ---
Author Organization [employer] [facility] Address [address] [place] [address] Care Team Providers Care Annealer Helper Name Role Phone Trisha Aaron MD Primary Care Provider Mona bui Reason for Visit * Reason Onset Date Comments Error 05/08/2020 Encounter Details Date Type Department Care Team Description 05/08/[address] [address] Trisha Aaron MD Error Social History Tobacco [...] on filedocumented in this encounter Care Teams Annealer Helper Relationship Specialty Start Date End Date Trisha Aaron MD PCP - General Internal Medicine 12/31/17 documented as of this encounter
--- OUTSIDE RECORDS SUMMARY | 2025-01-26 19:20 | XMS_ITS | Encounter Summary ---
Author Organization [employer] [facility] Address [address] [place] [address] Care Team Providers Care Donation Worker Name Role Phone Trisha Aaron MD Primary Care Provider Mona bui Encounter Details Date Type Department Care Team Description 04/11/2019 Release of Information Medical Records [address] [place] [id number] Abstract, Provider Social History Tobacco Use Types [...] on filedocumented in this encounter Care Teams Donation Worker Relationship Specialty Start Date End Date Trisha Aaron MD PCP - General Internal Medicine 12/31/17 documented as of this encounter
--- OUTSIDE RECORDS SUMMARY | 2025-01-26 19:20 | XMS_ITS | Encounter Summary ---
Author Organization [facility] Address [address] [place] [address] Care Team Providers Care Manager Of Case Management Name Role Phone Tirsha Aaron MD Primary Care Provider Mona bui Reason for Visit * Reason Comments E-prescribe Rx Request Encounter Details Date Type Department Care Team Description 10/20/2023 Refill [facility] [address] [place] [phone] Kenneth Bucio DPM E-prescribe Rx Request [...] on filedocumented in this encounter Care Teams Manager Of Case Management Relationship Specialty Start Date End Date Trisha Aaron MD PCP - General Internal Medicine 12/31/17 documented as of this encounter
--- OUTSIDE RECORDS SUMMARY | 2025-01-26 19:20 | XMS_ITS | Encounter Summary ---
Author Organization [facility] Address [address] [place] [address] Care Team Providers Care Door Worker Name Role Phone Trisha Aaron MD Primary Care Provider Mona bui Reason for Visit * Reason Onset Date Comments radiology 07/03/2022 MRI appt Encounter Details Date Type Department Care Team Description 07/03/2022 Telephone Radiology - [address] [address] Kenneth Bucio DPM radiology (MRI appt) Social [...] on filedocumented in this encounter Care Teams Door Worker Relationship Specialty Start Date End Date Trisha Aaron MD PCP - General Internal Medicine 12/31/17 documented as of this encounter
--- OUTSIDE RECORDS SUMMARY | 2025-01-26 19:20 | XMS_ITS | Encounter Summary ---
Author Organization [employer] [facility] Address [address] [place] [address] Care Team Providers Care Valve Repairer Reclamation Name Role Phone Trisha Aaron MD Primary Care Provider Mona bui Reason for Visit * Reason Comments E-prescribe Rx Request Encounter Details Date Type Department Care Team Description 04/03/2019 Refill OBGYN - [address] [facility] [address] [place] [phone] Nohemy Malhotra CNM [address] [place] [phone] E-prescribe Rx Request Social History [...] EST WHEN WAS THE PATIENTS LAST ANNUAL PRODUCTION REPAIRER EXAM? New pt no ag on file [...] the end of the day? NO Payor: [employer] / Plan: [facility] / Product Type: MEDICAID RISK documented in this encounter Plan of Treatment Not on file documented as of this encounter Visit Diagnoses Not on filedocumented in this encounter Care Teams Valve Repairer Reclamation Relationship Specialty Start Date End Date Trisha Aaron MD PCP - General Internal Medicine 12/31/17 documented as of this encounter
--- OUTSIDE RECORDS SUMMARY | 2025-01-26 19:20 | XMS_ITS | Encounter Summary ---
Author Organization [employer] [facility] Address [facility] [place] [address] Care Team Providers Care Cert Occupational Therapy Asst Name Role Phone Trisha Aaron MD Primary Care Provider Mona bui Encounter Details Date Type Department Care Team Description 06/11/2020 Orders Only Medical Records [address] [place] [address] Ya Ramírez DO Social History Tobacco Use [...] on filedocumented in this encounter Care Teams Cert Occupational Therapy Asst Relationship Specialty Start Date End Date Trisha Aaron MD PCP - General Internal Medicine 12/31/17 documented as of this encounter
--- OUTSIDE RECORDS SUMMARY | 2025-01-26 19:20 | XMS_ITS | Encounter Summary ---
Author Organization [facility] Address [address] [place] [address] Care Team Providers Care Burring Machine Operator Name Role Phone Trisha Aaron MD Primary Care Provider Mona bui Reason for Visit * Reason Comments E-prescribe Rx Request Encounter Details Date Type Department Care Team Description 01/21/2023 Refill [facility] [address] [place] [phone] Kenneth Bucio DPM E-prescribe Rx Request [...] on filedocumented in this encounter Care Teams Burring Machine Operator Relationship Specialty Start Date End Date Trisha Aaron MD PCP - General Internal Medicine 12/31/17 documented as of this encounter
--- OUTSIDE RECORDS SUMMARY | 2025-01-26 19:20 | XMS_ITS | Encounter Summary ---
Author Organization [facility] Address [facility] [place] [address] Care Team Providers Care Floriculture Teacher Name Role Phone Trisha Aaron MD Primary Care Provider Mona bui Encounter Details Date Type Department Care Team Description 02/09/2018 Transfer Records Medical Records [address] [place] [address] Abstract, Provider Social History Tobacco Use Types Packs/Day Years Used Date Smoking Tobacco: Never Smokeless Tobacco: Never Sex Assigned at Date Recorded Not on file documented as of this encounter Plan of Treatment Not on file documented as of this encounter Visit Diagnoses Not on filedocumented in this encounter Care Teams Floriculture Teacher Relationship Specialty Start Date End Date Trisha Aaron MD PCP - General Internal Medicine 12/31/17 documented as of this encounter
--- OUTSIDE RECORDS SUMMARY | 2025-01-26 19:20 | XMS_ITS | Encounter Summary ---
Author Organization [facility] Address [address] [place] [address] Care Team Providers Care Rheologist Name Role Phone Trisha Aaron MD Primary Care Provider Mona bui Reason for Visit * Reason Comments E-prescribe Rx Request Encounter Details Date Type Department Care Team Description 10/11/2022 Refill [facility] [address] [place] [address] [place] [phone] Kenneth Bucio DPM E-prescribe Rx Request [...] on filedocumented in this encounter Care Teams Rheologist Relationship Specialty Start Date End Date Trisha Aaron MD PCP - General Internal Medicine 12/31/17 documented as of this encounter
--- OUTSIDE RECORDS SUMMARY | 2025-01-26 19:20 | XMS_ITS | Encounter Summary ---
Author Organization [facility] [employer] [facility] Address [address] [place] [address] Care Team Providers Care Fire Range Technician Name Role Phone Trisha Aaron MD Primary Care Provider Mona bui Encounter Details Date Type Department Care Team Description 07/23/2020 [facility] Medical Records [address] [place] [address] Abstract, Provider Social History Tobacco Use Types [...] on filedocumented in this encounter Care Teams Fire Range Technician Relationship Specialty Start Date End Date Trisha Aaron MD PCP - General Internal Medicine 12/31/17 documented as of this encounter
--- OUTSIDE RECORDS SUMMARY | 2025-01-26 19:20 | XMS_ITS | Encounter Summary ---
Author Organization [employer] [facility] Address [address] [place] [address] Care Team Providers Care Installment Account Checker Name Role Phone Trisha Aaron MD Primary Care Provider Mona bui Encounter Details Date Type Department Care Team Description 05/09/2020 Orders Only OBGYN - [place] [address] [place] [address] Ya Ramírez DO Irregular menstrual cycle (Primary [...] (HCC) documented in this encounter Care Teams Installment Account Checker Relationship Specialty Start Date End Date Trisha Aaron MD PCP - General Internal Medicine 12/31/17 documented as of this encounter
--- OUTSIDE RECORDS SUMMARY | 2025-01-26 19:20 | XMS_ITS | Encounter Summary ---
Author [facility] Address [address] [place] [address] Care Team Providers Care Business Integration Manager Name Role Phone Trisha Aaron MD Primary Care Provider Mona bui Encounter Details Date Type Department Care Team Description 09/28/2018 Box Printing Machine Operator Report Medical Records [address] [place] [address] Trisha Aaron MD Social History Tobacco Use Types Packs/Day Years Used Date Smoking Tobacco: Never Smokeless Tobacco: Never Sex Assigned at Date Recorded Not on file documented as of this encounter Plan of Treatment Not on file documented as of this encounter Visit Diagnoses Not on filedocumented in this encounter Care Teams Business Integration Manager Relationship Specialty Start Date End Date Trisha Aaron MD PCP - General Internal Medicine 12/31/17 documented as of this encounter
--- OUTSIDE RECORDS SUMMARY | 2025-01-26 19:20 | XMS_ITS | Encounter Summary ---
Author Organization [facility] Address [address] [place] [address] Care Team Providers Care Pathological Technician Name Role Phone Trisha Aaron MD Primary Care Provider Mona bui Reason for Visit * Reason Comments E-prescribe Rx Request Encounter Details Date Type Department Care Team Description 02/22/2023 Refill [facility] Medical [facility] [address] [place] [phone] Kenneth Bucio DPM E-prescribe Rx Request [...] on filedocumented in this encounter Care Teams Pathological Technician Relationship Specialty Start Date End Date Trisha Aaron MD PCP - General Internal Medicine 12/31/17 documented as of this encounter
[2025-01-26 19:30] VITALS: BP 106/56; PULSE 72; RESP 18; O2SAT 98
[2025-01-26 19:31] VITALS: BP 106/56; PULSE 72; RESP 18; TEMP 36.6; O2SAT 98
== END 2025-01-26 19:34 | disposition home or self-care (01) ==
PROVIDERS: Emergency Provider Emergency Medicine Emergency Medical Services; PCP Physician Assistant
DX: S16.1XXA Strain of muscle, fascia and tendon at neck level, initial encounter (principal); S39.012A Strain of muscle, fascia and tendon of lower back, initial encounter; S50.02XA Contusion of left elbow, initial encounter; S60.212A Contusion of left wrist, initial encounter; M54.2 Cervicalgia; M79.602 Pain in left arm; X58.XXXA Exposure to other specified factors, initial encounter; Y93.9 Activity, unspecified; Y92.9 Unspecified place or not applicable; Y99.9 Unspecified external cause status
CPT/HCPCS: 72040; 72100; 73070; 73120; 99283

== ENCOUNTER → 2025-01-26 17:36 | Outpatient (BNV) | payer OTHER, SELFPAY | PROVIDERS: Emergency Provider Emergency Medicine Emergency Medical Services; PCP Physician Assistant; Visit Provider Radiology Diagnostic Radiology | DX: M54.2 Cervicalgia (principal); M47.816 Spondylosis without myelopathy or radiculopathy, lumbar region; M79.642 Pain in left hand; M25.522 Pain in left elbow; V89.2XXA Person injured in unspecified motor-vehicle accident, traffic, initial encounter | CPT/HCPCS: 72040; 72100; 73070; 73120 ==

== ENCOUNTER 2025-01-31 10:46 | Emergency (ER) | payer OTHER, SELFPAY ==
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
[2025-01-31 10:57] VITALS: BP 138/62; PULSE 97; RESP 18; TEMP 36.9; O2SAT 97; BMI 33.9
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
--- NOTE | 2025-01-31 11:49 | PC.NURSE ---
pt a&ox3, vss, medicated for 10/10 pain, awaiting radiology results, call silveira within reach, plan of care ongoing
--- NOTE | 2025-01-31 12:50 | PC.NURSE ---
patient a&ox3, awaiting results of radiology, pt states her pain went down very little with medications given 12/13. will notify provider
[2025-01-31 13:39] VITALS: BP 104/63; PULSE 75; RESP 18; TEMP 36.6; O2SAT 98
--- OUTSIDE RECORDS SUMMARY | 2025-01-31 14:10 | XMS_ITS | Clinical Summary ---
Author Organization [address] [facility] Address [address] [place] [address] Phone Care Team Providers Care Broadcast Technician Name Role Phone Trisha Aaron MD Primary Care Provider [phone] Allergies Active Allergy Reactions Criticality Noted Date [...] 0.0-44.9, adult (CMS/[facility] V24, [facility] V28) 01/27/2024 Asthma 04/06/2018 AIRAM (obstructive sleep apnea) 04/06/2018 Overview (01/27/2024): 10/2018 Home Sleep Study did not reveal sleep apnea or nocturnal hypoxia. Encounters Date Type Department Care Team Description 12/29/2024 Telephone Thoracic Surgery - [place] [address] [place] [address] [place] 11/27/2024 2:00 PM EDT Office Visit Orthopedic Surgery [facility] [address] [phone] Kenneth Bucio DPM Peroneal tendinitis of left lower extremity (Primary Dx); Disorder of ligament of ankle, left 11/13/2024 2:15 PM EDT Office Visit Orthopedic Surgery [facility] [address] [phone] Kenneth Bucio DPM Peroneal tendinitis of left lower extremity (Primary Dx); Disorder of ligament of ankle, left; Arthritis of left subtalar joint; Capsulitis of left foot from Last 3 Months Immunizations Immunization Administration Dates Next Due Influenza Quadravalent, MDCK , 0.5ml, preservative free (Flucelvax) 6mo and older 04/06/2018 Surgical History Surgery Date Site/Laterality Comments OTHER SURGICAL HISTORY PROCEDURE: DE ARTHRS WRST EXC&/RPR TRIANG FIBROCART&/JOINT SECTION PROCEDURE: [...] Description 04/20/2025 7:30 AM EST Hospital Encounter [facility] OR [address] [place] [phone] Kenneth Bucio DPM [address] [place] [phone] 04/20/2025 7:30 AM EST - 04/20/2025 10:00 AM EST Surgery [facility] OR [address] [place] [phone] Kenneth Bucio DPM [address] [place] [phone] LEFT ANKLE LATERAL STABILIZATION [00338 (CPT )] 05/03/2025 10:00 AM EST Office Visit Orthopedic Surgery [facility] [address] [place] [phone] Kenneth Bucio DPM [address] [place] [phone] Scheduled Procedures Name Priority Associated Diagnoses Date/Ti [...] Final Result from Last 3 Months [place] [address] Care Teams Broadcast Technician Relationship Specialty Start Date End Date Trisha Aaron MD [address] [place] [address] , [address] [facility] D/B/A: [facility] PCP - General Internal Medicine 12/31/17
== END 2025-01-31 13:43 | disposition home or self-care (01) ==
PROVIDERS: Emergency Provider Emergency Medicine
DX: Z04.1 Encounter for examination and observation following transport accident (principal); M79.18 Myalgia, other site; M54.2 Cervicalgia; R51.9 Headache, unspecified; V43.52XA Car driver injured in collision with other type car in traffic accident, initial encounter; Y93.9 Activity, unspecified; Y92.9 Unspecified place or not applicable; Y99.9 Unspecified external cause status
CPT/HCPCS: 70450; 71046; 72125; 96372; 99284; J1171; J1885

== ENCOUNTER → 2025-01-31 11:29 | Outpatient (BNV) | payer OTHER, SELFPAY | PROVIDERS: Emergency Provider Emergency Medicine; Visit Provider Radiology Diagnostic Radiology | DX: M54.2 Cervicalgia (principal); M47.812 Spondylosis without myelopathy or radiculopathy, cervical region; Z04.3 Encounter for examination and observation following other accident; R07.89 Other chest pain; V89.9XXA Person injured in unspecified vehicle accident, initial encounter | CPT/HCPCS: 70450; 71046; 72125 ==

== ENCOUNTER 2025-02-02 12:54 | Outpatient (AMB) | payer OTHER, SELFPAY ==
[2025-02-02 12:58] VITALS: BMI 33.9
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
--- OUTSIDE RECORDS SUMMARY | 2025-02-02 13:59 | XMS_ITS | Clinical Summary ---
Author Organization 175 [facility] Address [address] [place] [address] Phone Care Team Providers Care Corporate Compliance Officer Name Role Phone Trisha Aaron MD Primary Care Provider [phone] Allergies Active Allergy Reactions Criticality Noted Date [...] obesity with BMI of 4 0.0-44.9, adult (CMS/[facility] V24, [facility] V28) 01/27/2024 Asthma 04/06/2018 AIRAM (obstructive sleep apnea) 04/06/2018 Overview (01/27/2024): 10/2018 Home Sleep Study did not reveal sleep apnea or nocturnal hypoxia. Encounters Date Type Department Care Team Description 12/29/2024 Telephone Thoracic Surgery - [place] [address] [place] [address] [place], [place] 11/27/2024 2:00 PM EDT Office Visit Orthopedic Surgery [facility] [address] [phone] Kenneth Bucio DPM Peroneal tendinitis of left lower extremity (Primary Dx); Disorder of ligament of ankle, left 11/13/2024 2:15 PM EDT Office Visit Orthopedic Surgery [facility] [address] [phone] Kenneth Bucio DPM Peroneal tendinitis of left [...] Description 04/20/2025 7:30 AM EST Hospital Encounter [facility] Main OR [address] [place] [phone] Kenneth Bucio DPM [address] [place] [phone] 04/20/2025 7:30 AM EST - 04/20/2025 10:00 AM EST Surgery [facility] Main OR [address] [place] [phone] Kenneth Bucio DPM [address] [place] [phone] LEFT ANKLE LATERAL STABILIZATION [81618 (CPT )] 05/03/2025 10:00 AM EST Office Visit Orthopedic Surgery [facility] [address] [place] [phone] Kenneth Bucio DPM [address] [place] [phone] Scheduled Procedures Name Priority Associated Diagnoses Date/Ti [...] Final Result from Last 3 Months Insurance [employer] PLAN Care Teams Corporate Compliance Officer Relationship Specialty Start Date End Date Trisha Aaron MD [address] [place] [address] , [address] [facility] D/B/A: [facility] Carlin PCP - General Internal Medicine 12/31/17
== END 2025-02-02 13:25 | disposition home or self-care (01) ==
LOC: HO.HOS 12:55
PROVIDERS: PCP Physician Assistant
DX: G56.01 Carpal tunnel syndrome, right upper limb (principal)
CPT/HCPCS: 99024

== ENCOUNTER → 2025-02-02 12:54 | Outpatient (BNVA) | payer OTHER, SELFPAY | PROVIDERS: PCP Physician Assistant | DX: Z48.811 Encounter for surgical aftercare following surgery on the nervous system (principal); Z98.890 Other specified postprocedural states | CPT/HCPCS: 99212 ==

== ENCOUNTER 2025-02-14 15:14 | Outpatient (AMB) | payer OTHER, SELFPAY ==
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
[2025-02-14 15:26] VITALS: BP 98/76; PULSE 76; RESP 14; TEMP 36.6; O2SAT 99; BMI 33.9
--- OUTSIDE RECORDS SUMMARY | 2025-02-14 18:28 | XMS_ITS | Clinical Summary ---
Author Organization 175 [facility] Address [address] [place] [address] Phone Care Team Providers Care Web Marketing Specialist Name Role Phone Trisha Aaron MD Primary Care Provider [phone] Allergies Active Allergy Reactions Criticality Noted Date [...] BMI of 4 0.0-44.9, adult (CMS/HCC V24, CMS/HCC V28) 01/27/2024 Asthma 04/06/2018 AIRAM (obstructive sleep apnea) 04/06/2018 Overview (01/27/2024): 10/2018 Home Sleep Study did not reveal sleep apnea or nocturnal hypoxia. Encounters Date Type Department Care Team Description 12/29/2024 Telephone Thoracic Surgery - [place] [address] [place] [address] [place] 11/27/2024 2:00 PM EDT Office Visit Orthopedic Surgery - [place] [address] [place] [address] [place] [phone] Kenneth Bucio, DPM Peroneal tendinitis of left lower extremity (Primary Dx); Disorder of ligament of ankle, left from Last 3 Months Immunizations Immunization Administration [...] Description 04/20/2025 7:30 AM EST Hospital Encounter [facility] Main OR [address] [place] [phone] Kenneth Bucio DPM [address] [address] 04/20/2025 7:30 AM EST - 04/20/2025 10:00 AM EST Surgery [facility] Main OR [address] [place] [phone] Kenneth Bucio DPM [address] [address] LEFT ANKLE LATERAL STABILIZATION [16423 (CPT )] 05/03/2025 10:00 AM EST Office Visit Orthopedic Surgery - [place] [address] [phone] Kenneth Bucio DPM [address] [address] Scheduled Procedures Name Priority Associated Diagnoses Date/Ti [...] Screening 03/08/2022 Depression Screening 04/05/2024 COVID-19 Vaccine (3 - season) 2024 07/23/2020, 06/25/2020 Influenza Vaccine (#1) [...] patient's age to complete this topic Insurance Care Teams Web Marketing Specialist Relationship Specialty Start Date End Date Trisha Aaron MD [address] [facility] , [address] [facility] D/B/A: [facility] Carlin PCP - General Internal Medicine 12/31/17
--- OUTSIDE RECORDS SUMMARY | 2025-02-14 18:28 | XMS_ITS | Encounter Summary ---
Author Organization [facility] Address [address] [place] [address] Care Team Providers Care Floor Molder Name Role Phone Trisha Aaron MD Primary Care Provider Mona bui Encounter Details Date Type Department Care Team Description 07/23/2020 [facility] Medical Records [address] [place] [address] Abstract, Provider Social History Tobacco Use Types [...] on filedocumented in this encounter Care Teams Floor Molder Relationship Specialty Start Date End Date Trisha Aaron MD PCP - General Internal Medicine 12/31/17 documented as of this encounter
--- OUTSIDE RECORDS SUMMARY | 2025-02-14 18:28 | XMS_ITS | Encounter Summary ---
[facility] Address [address] [place] [address] Care Team Providers Care Senior Executive Assistant Name Role Phone Trisha Aaron MD Primary Care Provider Mona bui Encounter Details Date Type Department Care Team Description 09/28/2018 Workers Compensation Claims Specialist Report Medical Records [address] [place] [address] Trisha Aaron MD Social History Tobacco Use Types Packs/Day Years Used Date Smoking Tobacco: Never Smokeless Tobacco: Never Sex Assigned at Date Recorded Not on file documented as of this encounter Plan of Treatment Not on file documented as of this encounter Visit Diagnoses Not on filedocumented in this encounter Care Teams Senior Executive Assistant Relationship Specialty Start Date End Date Trisha Aaron MD PCP - General Internal Medicine 12/31/17 documented as of this encounter
--- OUTSIDE RECORDS SUMMARY | 2025-02-14 18:28 | XMS_ITS | Encounter Summary ---
Author Organization [facility] Address [address] [place] [address] Care Team Providers Care Sales Administrator Name Role Phone Trisha Aaron MD Primary Care Provider Mona bui Encounter Details Date Type Department Care Team Description 11/03/2018 Orders Only Medical Records [address] [place] [address] Bryan Sheehan MD Social History Tobacco Use [...] on filedocumented in this encounter Care Teams Sales Administrator Relationship Specialty Start Date End Date Trisha Aaron MD PCP - General Internal Medicine 12/31/17 documented as of this encounter
--- OUTSIDE RECORDS SUMMARY | 2025-02-14 18:28 | XMS_ITS | Encounter Summary ---
Author Organization [facility] Address [address] [place] [address] Care Team Providers Care Oven Operator Automatic Name Role Phone Trisha Aaron MD Primary Care Provider Mona bui Reason for Visit * Reason Comments E-prescribe Rx Request Encounter Details Date Type Department Care Team Description 10/20/2023 Refill [facility] Medical [facility] [address] [place] [phone] Kenneth Bucio DPM E-prescribe Rx Request [...] on filedocumented in this encounter Care Teams Oven Operator Automatic Relationship Specialty Start Date End Date Trisha Aaron MD PCP - General Internal Medicine 12/31/17 documented as of this encounter
--- OUTSIDE RECORDS SUMMARY | 2025-02-14 18:28 | XMS_ITS | Encounter Summary ---
Author Organization [facility] Address [facility] [place] [address] Care Team Providers Care Nail Assembly Machine Operator Name Role Phone Trisha Aaron MD Primary Care Provider Mona bui Encounter Details Date Type Department Care Team Description 06/11/2020 Orders Only Medical Records [address] [place] [address] Ya Ramírez DO Social History Tobacco Use [...] on filedocumented in this encounter Care Teams Nail Assembly Machine Operator Relationship Specialty Start Date End Date Trisha Aaron MD PCP - General Internal Medicine 12/31/17 documented as of this encounter
--- OUTSIDE RECORDS SUMMARY | 2025-02-14 18:28 | XMS_ITS | Encounter Summary ---
Author Organization [facility] Address [address] [place] [address] Care Team Providers Care Project Account Manager Name Role Phone Trisha Aaron MD Primary Care Provider Mona bui Encounter Details Date Type Department Care Team Description 02/10/2019 Orders Only OBGYN - [address] [address] Ya Ramírez DO Menorrhagia with regular cycle [...] menstruation documented in this encounter Care Teams Project Account Manager Relationship Specialty Start Date End Date Trisha Aaron MD PCP - General Internal Medicine 12/31/17 documented as of this encounter
--- OUTSIDE RECORDS SUMMARY | 2025-02-14 18:28 | XMS_ITS | Encounter Summary ---
Author Organization [facility] Address [address] [place] [address] Care Team Providers Care Test Borer Name Role Phone Trisha Aaron MD Primary Care Provider Mona bui Encounter Details Date Type Department Care Team Description 04/11/2019 Release of Information Medical Records [address] [place] [address] Abstract, Provider Social History Tobacco Use Types [...] on filedocumented in this encounter Care Teams Test Borer Relationship Specialty Start Date End Date Trisha Aaron MD PCP - General Internal Medicine 12/31/17 documented as of this encounter
--- OUTSIDE RECORDS SUMMARY | 2025-02-14 18:28 | XMS_ITS | Encounter Summary ---
Author Organization [facility] Address [address] [place] [address] Care Team Providers Care Director Software Development Name Role Phone Trisha Aaron MD Primary Care Provider Mona bui Reason for Visit * Reason Comments E-prescribe Rx Request Encounter Details Date Type Department Care Team Description 04/27/2023 Refill [facility] Medical [facility] [address] [place] [phone] Kenneth Bucio DPM E-prescribe Rx Request [...] filedocumented in this encounter Care Teams Director Software Development Relationship Specialty Start Date End Date Trisha Aaron MD PCP - General Internal Medicine 12/31/17 documented as of this encounter
--- OUTSIDE RECORDS SUMMARY | 2025-02-14 18:28 | XMS_ITS | Encounter Summary ---
Author Organization [facility] Address [address] [place] [address] Care Team Providers Care Superintendent Schools Name Role Phone Trisha Aaron MD Primary Care Provider Mona bui Reason for Visit * Reason Comments E-prescribe Rx Request Encounter Details Date Type Department Care Team Description 02/22/2023 Refill [facility] Medical [facility] [address] [place] [phone] Kenneth Bucio DPM E-prescribe Rx Request [...] on filedocumented in this encounter Care Teams Superintendent Schools Relationship Specialty Start Date End Date Trisha Aaron MD PCP - General Internal Medicine 12/31/17 documented as of this encounter
--- OUTSIDE RECORDS SUMMARY | 2025-02-14 18:28 | XMS_ITS | Encounter Summary ---
Author Organization [employer] [facility] Address [address] [place] [address] Care Team Providers Care Diesel Engine Engineer Name Role Phone Trisha Aaron MD Primary Care Provider Mona bui Reason for Visit * Reason Onset Date Comments Provider Call Back 10/27/2018 Encounter Details Date Type Department Care Team Description 10/27/2018 Telephone Pulmonology - [place] [address] [facility] [address] [place] [phone] Bryan Sheehan MD Provider Call [...] on filedocumented in this encounter Care Teams Diesel Engine Engineer Relationship Specialty Start Date End Date Trisha Aaron MD PCP - General Internal Medicine 12/31/17 documented as of this encounter
--- OUTSIDE RECORDS SUMMARY | 2025-02-14 18:28 | XMS_ITS | Encounter Summary ---
Author Organization [facility] Address [address] [place] [address] Care Team Providers Care Landscape Architecture Teacher Name Role Phone Trisha Aaron MD Primary Care Provider Mona bui Reason for Visit * Reason Comments E-prescribe Rx Request Encounter Details Date Type Department Care Team Description 11/10/2022 Refill [facility] Medical [facility] [address] [place] [phone] Kenneth Bucio DPM E-prescribe Rx Request Social [...] on filedocumented in this encounter Care Teams Landscape Architecture Teacher Relationship Specialty Start Date End Date Trisha Aaron MD PCP - General Internal Medicine 12/31/17 documented as of this encounter
--- OUTSIDE RECORDS SUMMARY | 2025-02-14 18:28 | XMS_ITS | Encounter Summary ---
Author Organization [facility] [facility] Address [address] [place] [address] Care Team Providers Care Gage Maker Name Role Phone Trisha Aaron MD Primary Care Provider Mona bui Reason for Visit * Reason Comments E-prescribe Rx Request Encounter Details Date Type Department Care Team Description 06/30/2023 [facility] [address] [place] [address] [facility] [address] [place] [address] E-prescribe Rx Request Social History Tobacco Use [...] EDT WHEN WAS THE PATIENTS LAST ANNUAL MEDICAL DIRECTOR EXAM? ? Does patient have an upcoming [...] the end of the day? YES Payor: [facility] [employer] [facility] FFS / Plan: [facility] / Product Type: MEDICAID RISK documented in this encounter Plan of Treatment Not on file documented as of this encounter Visit Diagnoses Not on filedocumented in this encounter Care Teams Gage Maker Relationship Specialty Start Date End Date Trisha Aaron MD PCP - General Internal Medicine 12/31/17 documented as of this encounter
--- OUTSIDE RECORDS SUMMARY | 2025-02-14 18:28 | XMS_ITS | Encounter Summary ---
Author Organization [employer] [facility] Address [address] [place] [address] Care Team Providers Care Team Facilitator Name Role Phone Trisha Aaron MD Primary Care Provider Mona bui Reason for Visit * Reason Comments E-prescribe Rx Request Encounter Details Date Type Department Care Team Description 04/03/2019 Refill OBGYN - [facility] [address] [place] [phone] Nohemy Malhotra CNM [address] [place] [phone] E-prescribe Rx Request Social History [...] EST WHEN WAS THE PATIENTS LAST ANNUAL DIVIDER OPERATOR EXAM? New pt no ag on file [...] the end of the day? NO Payor: [employer] FFS / Plan: [facility] / Product Type: MEDICAID RISK documented in this encounter Plan of Treatment Not on file documented as of this encounter Visit Diagnoses Not on filedocumented in this encounter Care Teams Team Facilitator Relationship Specialty Start Date End Date Trisha Aaron MD PCP - General Internal Medicine 12/31/17 documented as of this encounter
--- OUTSIDE RECORDS SUMMARY | 2025-02-14 18:28 | XMS_ITS | Clinical Summary ---
Author Organization [facility] Address [address] [place] [address] Care Team Providers Care Banking Center Manager Name Role Phone Trisha Aaron MD [...] at bedtime as needed. 0 Active Tiotropium Camilla Monohydrate (SPIRIVA RESPIMAT) 2.5 MCG/ACT Aero Soln [...] 04/05/2024 11/02/2018 SOCIAL NEEDS SCREENING 04/05/2024 INFLUENZA (#1) 2024 04/06/2018 Care Teams Banking Center Manager Relationship Specialty Start Date End Date Trisha Aaron MD PCP - General Internal Medicine 12/31/17
--- OUTSIDE RECORDS SUMMARY | 2025-02-14 18:28 | XMS_ITS | Encounter Summary ---
Author Organization [facility] Address [address] [place] [address] Care Team Providers Care Kinesiologist Name Role Phone Trisha Aaron MD Primary Care Provider Mona bui Reason for Visit * Reason Comments E-prescribe Rx Request Encounter Details Date Type Department Care Team Description 01/21/2023 Refill [facility] Medical [facility] [address] [place] [phone] Kenneth Bucio DPM E-prescribe Rx Request [...] on filedocumented in this encounter Care Teams Kinesiologist Relationship Specialty Start Date End Date Trisha Aaron MD PCP - General Internal Medicine 12/31/17 documented as of this encounter
== END 2025-02-14 15:54 | disposition home or self-care (01) ==
LOC: HO.HMCFM 15:14
PROVIDERS: PCP Physician Assistant; Visit Provider Physician Assistant
DX: R51.9 Headache, unspecified (principal); I10 Essential (primary) hypertension; M54.6 Pain in thoracic spine; V89.2XXA Person injured in unspecified motor-vehicle accident, traffic, initial encounter; L98.7 Excessive and redundant skin and subcutaneous tissue; B37.2 Candidiasis of skin and nail

== ENCOUNTER → 2025-02-14 15:14 | Outpatient (BNVA) | payer OTHER, SELFPAY | PROVIDERS: Visit Provider Physician Assistant | DX: M54.2 Cervicalgia (principal); M25.511 Pain in right shoulder; M25.512 Pain in left shoulder; K21.9 Gastro-esophageal reflux disease without esophagitis; M79.7 Fibromyalgia; R21 Rash and other nonspecific skin eruption; J45.909 Unspecified asthma, uncomplicated; R51.9 Headache, unspecified; I10 Essential (primary) hypertension; M54.6 Pain in thoracic spine; L98.7 Excessive and redundant skin and subcutaneous tissue; B37.2 Candidiasis of skin and nail; G89.29 Other chronic pain; Z87.828 Personal history of other (healed) physical injury and trauma | CPT/HCPCS: 99212 ==

== ENCOUNTER → 2025-02-16 18:45 | Outpatient (BNV) | payer OTHER, SELFPAY | PROVIDERS: PCP Physician Assistant; Visit Provider Radiology Diagnostic Radiology | DX: R51.9 Headache, unspecified (principal) | CPT/HCPCS: 70551 ==

== ENCOUNTER 2025-02-16 18:48 | Outpatient (REF) | payer OTHER, SELFPAY ==
--- NOTE | ~2025-02-16 | MR_ITS ---
EXAMINATION: MR BRAIN WITHOUT CONTRAST CLINICAL INFORMATION: R 51.9. COMPARISON: None available. TECHNIQUE: Initial ethnographic materials conservator sequences for localizing and sagittal T1 sequence obtained. Patient claustrophobic and unable to continue with the exam.. FINDINGS: The exam is incomplete with only sagittal T1 sequences obtained secondary to claustrophobia. Midline structures are intact. Sellar/suprasellar region is normal. Craniocervical junction is intact with normal position of the cerebellar tonsils. There are numerous prominent cervical lymph nodes. MR/MR head/brain wo con IMPRESSION: Incomplete examination secondary to claustrophobia. Consider noncontrast CT versus conscious sedation MRI under anesthesiology Electronically signed by: Taco Odell MD 02/19/2025 07:04 AM GIULIANA
--- OUTSIDE RECORDS SUMMARY | 2025-02-17 01:03 | XMS_ITS | Encounter Summary ---
Author [facility] Address [address] [place] [address] Care Team Providers Care Chemical Pumper Name Role Phone Trisha Aaron MD Primary Care Provider Mona bui Reason for Visit * Reason Onset Date Comments radiology 07/03/2022 MRI appt Encounter Details Date Type Department Care Team Description 07/03/2022 Telephone Radiology - [address] [address] Kenneth Bucio DPM radiology (MRI appt) Social [...] on filedocumented in this encounter Care Teams Chemical Pumper Relationship Specialty Start Date End Date Trisha Aaron MD PCP - General Internal Medicine 12/31/17 documented as of this encounter
--- OUTSIDE RECORDS SUMMARY | 2025-02-17 01:03 | XMS_ITS | Clinical Summary ---
Author Organization [facility] Address [address] [place] [address] Care Team Providers Care Insurance Sales Executive Name Role Phone Trisha Aaron MD [...] at bedtime as needed. 0 Active Tiotropium [place] Monohydrate (SPIRIVA RESPIMAT) 2.5 MCG/ACT Aero Soln [...] 04/05/2024 INFLUENZA (#1) 2024 04/06/2018 Care Teams Insurance Sales Executive Relationship Specialty Start Date End Date Trisha Aaron MD PCP - General Internal Medicine 12/31/17
--- OUTSIDE RECORDS SUMMARY | 2025-02-17 01:03 | XMS_ITS | Encounter Summary ---
Author Organization [facility] Address [facility] [place] [address] Care Team Providers Care Senior Informatica Etl Developer Name Role Phone Trisha Aaron MD Primary Care Provider Mona bui Encounter Details Date Type Department Care Team Description 02/09/2018 Release of Information Medical Records [address] [place] [address] Abstract, Provider Social History Tobacco Use Types Packs/Day Years Used Date Smoking Tobacco: Never Smokeless Tobacco: Never Sex Assigned at Date Recorded Not on file documented as of this encounter Plan of Treatment Not on file documented as of this encounter Visit Diagnoses Not on filedocumented in this encounter Care Teams Senior Informatica Etl Developer Relationship Specialty Start Date End Date Trisha Aaron MD PCP - General Internal Medicine 12/31/17 documented as of this encounter
--- OUTSIDE RECORDS SUMMARY | 2025-02-17 01:04 | XMS_ITS | Encounter Summary ---
Author Organization [facility] Address [address] [place] [address] Care Team Providers Care Mobile Home Mechanic Name Role Phone Trisha Aaron MD Primary Care Provider Mona bui Reason for Visit * Reason Comments E-prescribe Rx Request Encounter Details Date Type Department Care Team Description 02/22/2023 Refill [facility] Medical [facility] [address] [place] [phone] Kenneth Bucio DPM E-prescribe Rx Request [...] on filedocumented in this encounter Care Teams Mobile Home Mechanic Relationship Specialty Start Date End Date Trisha Aaron MD PCP - General Internal Medicine 12/31/17 documented as of this encounter
--- OUTSIDE RECORDS SUMMARY | 2025-02-17 01:04 | XMS_ITS | Encounter Summary ---
Author Organization [facility] Address [address] [place] [address] Care Team Providers Care Tissue Technologist Name Role Phone Trisha Aaron MD Primary Care Provider Mona bui Reason for Visit * Reason Comments E-prescribe Rx Request Encounter Details Date Type Department Care Team Description 11/10/2022 Refill [facility] Medical [facility] [address] [place] [phone] Kenneth Bucio DPM E-prescribe Rx Request Social [...] on filedocumented in this encounter Care Teams Tissue Technologist Relationship Specialty Start Date End Date Trisha Aaron MD PCP - General Internal Medicine 12/31/17 documented as of this encounter
--- OUTSIDE RECORDS SUMMARY | 2025-02-17 01:04 | XMS_ITS | Encounter Summary ---
Author Organization [facility] Address [facility] [place] [address] Care Team Providers Care Trip Follower Name Role Phone Trisha Aaron MD Primary Care Provider Mona bui Encounter Details Date Type Department Care Team Description 10/25/2018 Release of Information Medical Records [address] [place] [address] Abstract, Provider Social History Tobacco Use Types Packs/Day Years Used Date Smoking Tobacco: Never Smokeless Tobacco: Never Sex Assigned at Date Recorded Not on file documented as of this encounter Plan of Treatment Not on file documented as of this encounter Visit Diagnoses Not on filedocumented in this encounter Care Teams Trip Follower Relationship Specialty Start Date End Date Trisha Aaron MD PCP - General Internal Medicine 12/31/17 documented as of this encounter
--- OUTSIDE RECORDS SUMMARY | 2025-02-17 01:04 | XMS_ITS | Encounter Summary ---
Author Organization [facility] Address [address] [place] [address] Care Team Providers Care Refrigeration Operator Name Role Phone Trisha Aaron MD Primary Care Provider Mona bui Reason for Visit * Reason Comments E-prescribe Rx Request Encounter Details Date Type Department Care Team Description 03/23/2023 Refill [facility] Medical [facility] [address] [place] [phone] Kenneth Bucio DPM E-prescribe Rx Request [...] on filedocumented in this encounter Care Teams Refrigeration Operator Relationship Specialty Start Date End Date Trisha Aaron MD PCP - General Internal Medicine 12/31/17 documented as of this encounter
--- OUTSIDE RECORDS SUMMARY | 2025-02-17 01:04 | XMS_ITS | Encounter Summary ---
Author Organization [facility] Address [address] [place] [address] Care Team Providers Care Building Service Worker Name Role Phone Trisha Aaron MD Primary Care Provider Mona bui Reason for Visit * Reason Comments E-prescribe Rx Request Encounter Details Date Type Department Care Team Description 04/27/2023 Refill [facility] Medical [facility] [address] [place] [phone] Kenneth Bucio DPM E-prescribe Rx Request [...] on filedocumented in this encounter Care Teams Building Service Worker Relationship Specialty Start Date End Date Trisha Aaron MD PCP - General Internal Medicine 12/31/17 documented as of this encounter
--- OUTSIDE RECORDS SUMMARY | 2025-02-17 01:05 | XMS_ITS | Encounter Summary ---
Author Organization [employer] [facility] Address [address] [place] [address] Care Team Providers Care Station Captain Name Role Phone Trisha Aaron MD Primary Care Provider Mona bui Reason for Visit * Reason Comments E-prescribe Rx Request Encounter Details Date Type Department Care Team Description 06/30/2023 [facility] [address] [place] [address] [facility] [address] [place] [address] E-prescribe Rx Request Social History Tobacco Use [...] EDT WHEN WAS THE PATIENTS LAST ANNUAL FOREST FIRE EQUIPMENT OPERATOR EXAM? ? Does patient have an upcoming [...] the end of the day? YES Payor: [facility] [employer] [facility] FFS / Plan: [facility] / Product Type: MEDICAID RISK documented in this encounter Plan of Treatment Not on file documented as of this encounter Visit Diagnoses Not on filedocumented in this encounter Care Teams Station Captain Relationship Specialty Start Date End Date Trisha Aaron MD PCP - General Internal Medicine 12/31/17 documented as of this encounter
--- OUTSIDE RECORDS SUMMARY | 2025-02-17 01:05 | XMS_ITS | Encounter Summary ---
Author [facility] Address [address] [place] [address] Care Team Providers Care Pneumatic Tester Mechanic Name Role Phone Trisha Aaron MD Primary Care Provider Mona bui Encounter Details Date Type Department Care Team Description 09/28/2018 Traveling Accountant Report Medical Records [address] [place] [address] Trisha Aaron MD Social History Tobacco Use Types Packs/Day Years Used Date Smoking Tobacco: Never Smokeless Tobacco: Never Sex Assigned at Date Recorded Not on file documented as of this encounter Plan of Treatment Not on file documented as of this encounter Visit Diagnoses Not on filedocumented in this encounter Care Teams Pneumatic Tester Mechanic Relationship Specialty Start Date End Date Trisha Aaron MD PCP - General Internal Medicine 12/31/17 documented as of this encounter
--- OUTSIDE RECORDS SUMMARY | 2025-02-17 01:06 | XMS_ITS | Encounter Summary ---
Author Organization [facility] Address [address] [place] [address] Care Team Providers Care Watch Commander Name Role Phone Trisha Aaron MD Primary Care Provider Mona bui Reason for Visit * Reason Onset Date Comments Information Needed 05/16/2019 Encounter Details Date Type Department Care Team Description 05/16/[address] [phone] Trisha Aaron MD Information Needed Social History [...] on filedocumented in this encounter Care Teams Watch Commander Relationship Specialty Start Date End Date Trisha Aaron MD PCP - General Internal Medicine 12/31/17 documented as of this encounter
--- OUTSIDE RECORDS SUMMARY | 2025-02-17 01:06 | XMS_ITS | Encounter Summary ---
Author Organization [facility] [facility] Address [facility] [place] [address] Care Team Providers Care River Rat Name Role Phone Trisha Aaron MD Primary Care Provider Mona bui Encounter Details Date Type Department Care Team Description 04/28/2019 Hospital Medical Records [address] [place] [address] Ya Ramírez, Social History Tobacco Use Types [...] on filedocumented in this encounter Care Teams River Rat Relationship Specialty Start Date End Date Trisha Aaron MD PCP - General Internal Medicine 12/31/17 documented as of this encounter
--- OUTSIDE RECORDS SUMMARY | 2025-02-17 01:07 | XMS_ITS | Encounter Summary ---
Author Organization [facility] Address [facility] [place] [address] Care Team Providers Care Parer Name Role Phone Trisha Aaron MD Primary Care Provider Mona bui Encounter Details Date Type Department Care Team Description 04/11/2019 Release of Information Medical Records [address] [place] [address] Abstract, Provider Social History Tobacco Use Types [...] on filedocumented in this encounter Care Teams Parer Relationship Specialty Start Date End Date Trisha Aaron MD PCP - General Internal Medicine 12/31/17 documented as of this encounter
--- OUTSIDE RECORDS SUMMARY | 2025-02-17 01:07 | XMS_ITS | Encounter Summary ---
Author Organization [facility] Address [address] [place] [address] Care Team Providers Care Client Specialist Name Role Phone Trisha Aaron MD Primary Care Provider Mona bui Encounter Details Date Type Department Care Team Description 02/10/2019 Orders Only OBGYN - [address] [address] Ya Ramírez DO Menorrhagia with regular cycle [...] menstruation documented in this encounter Care Teams Client Specialist Relationship Specialty Start Date End Date Trisha Aaron MD PCP - General Internal Medicine 12/31/17 documented as of this encounter
--- OUTSIDE RECORDS SUMMARY | 2025-02-17 01:07 | XMS_ITS | Encounter Summary ---
Author Organization [facility] Address [address] [place] [address] Care Team Providers Care Arts Education Teacher Name Role Phone Trisha Aaron MD Primary Care Provider Mona bui Reason for Visit * Reason Comments E-prescribe Rx Request Encounter Details Date Type Department Care Team Description 04/03/2019 Refill OBGYN - [address] [facility] [address] [place] [address] Nohemy Malhotra CNM [address] [place] [address] E-prescribe Rx Request Social History [...] EST WHEN WAS THE PATIENTS LAST ANNUAL LIFE INSURANCE SALESPERSON EXAM? New pt no ag on file [...] the end of the day? NO Payor: [employer] FFS / Plan: [facility] / Product Type: MEDICAID RISK documented in this encounter Plan of Treatment Not on file documented as of this encounter Visit Diagnoses Not on filedocumented in this encounter Care Teams Arts Education Teacher Relationship Specialty Start Date End Date Trisha Aaron MD PCP - General Internal Medicine 12/31/17 documented as of this encounter
== END 2025-02-16 18:49 | disposition home or self-care (01) ==
LOC: HO.MRI 18:48
PROVIDERS: PCP Physician Assistant; Visit Provider Physician Assistant
DX: R51.9 Headache, unspecified (principal)
CPT/HCPCS: 70551

== ENCOUNTER 2025-02-19 09:10 | Outpatient (REF) | payer OTHER, SELFPAY | END 2025-02-19 09:11 | disposition home or self-care (01) | LOC: HO.HOSX 09:10 | DX: Z13.89 Encounter for screening for other disorder (principal) ==

== ENCOUNTER 2025-03-26 19:13 | Emergency (ER) | payer OTHER, SELFPAY ==
--- NOTE | ~2025-03-26 | CT_ITS ---
CLINICAL HISTORY: Fall Down Stairs; Head Strike CT cervical spine without contrast Comparison: CT of the cervical spine from 01/31/2025 Findings: No acute fracture of the cervical spine. No significant change in vertebral heights are alignments, with mild/minimal anterolisthesis at C5-C6. Mild vertebral height losses including C4 through C6 without significant change. Disc osteophyte complexes, ligament calcifications, and facet arthropathy are redemonstrated-multifocal. No significant osseous spinal stenosis by CT. No paraspinal hematoma. Subcutaneous edema in metal streak artifacts noted. Mild motion of the scarring of the imaged lung apices. IMPRESSION: No acute fracture of the cervical spine. This document has been electronically signed by: Mason Cruz MD on 03/27/2025 02:26:48
--- NOTE | ~2025-03-26 | CT_ITS ---
CLINICAL HISTORY: Fall Down Stairs; Head Strike CT head without contrast Comparison: Head CT from 01/31/2025 Findings: No acute intracranial hemorrhage. No midline shift or hydrocephalus. Basal ganglia mineralization, dural calcifications, and vascular calcifications are redemonstrated. No large arterial territorial infarction by CT. Mucosal thickening noted in the imaged paranasal sinuses. Metal artifacts including from partially imaged left nasal piercing. Trace mastoid effusions. No acute skull fracture. Bilateral imaged nasal bone fractures appear old/chronic. Dermal scalp calcifications are redemonstrated. IMPRESSION: 1. No acute intracranial abnormality by CT. This document has been electronically signed by: Mason Cruz MD on 03/27/2025 02:18:10
[2025-03-26 19:30] VITALS: BP 140/78; PULSE 82; RESP 18; TEMP 36.6; O2SAT 99; BMI 31.3
--- NOTE | 2025-03-26 19:36 | ED.GENADULT ---
HPI - General Adult General Chief complaint: Head Injury Stated complaint: fell downstairs, pain in head since injury Time Seen by Provider: 03/26/25 23:54 Source: patient Mode of arrival: ambulatory Limitations: language barrier ([employer] Mechan[employer] services utilized) History of Present Illness ED Provider: Mayito ORTIZ HPI narrative: The patient is a 45-year-old female who presents to the ED for evaluation of persistent, severe headaches and associated symptoms after falling down a flight of stairs approximately two weeks ago. She states she ?lost balance? and fell down approximately 13 stairs, briefly losing consciousness per mother?s observation. No EMS was called at the time due to the patient?s concurrent depressive crisis and desire to avoid the hospital. Family considered sending her to the hospital however the patient refused. Since the fall she endorses constant, intense headaches described as a deep pain but also occurring with sensations of ?electricity in the brain , as well as episodes of dizziness including two episodes this past Wednesday during which her legs gave out leading to two additional ground level falls without head strike. The patient also reports she is experiencing intermittent nausea with non-bloody vomiting during severe headache flares, last occurring at 14:00 today. The patient reports she has also been experiencing significant stress/depression over the past 14 days related to family issues and holidays. She denies suicidal or homicidal ideation. Patient's spoke to her psychologist who recommended the ED visit today. The patient has been attempting Excedrin, ibuprofen, and tramadol on a reportedly almost daily basis since the fall. Related Data Home Medications ?Medication ?Instructions ?Recorded ?Confirmed zolpidem 10 mg tablet 10 mg PO BEDTIME PRN Sleep 02/09/20 02/14/25 clonazepam 1 mg tablet 1 mg PO BID PRN 04/25/21 02/14/25 hydroxyzine HCl 50 mg tablet 50 mg PO BID 09/28/23 02/14/25 aripiprazole 2 mg tablet 2 mg PO DAILY depressive disorder 11/14/24 02/14/25 fluoxetine 20 mg capsule 20 mg PO DAILY depressive disorder 11/14/24 02/14/25 Previous Rx's ?Medication ?Instructions ?Recorded azelastine 137 mcg (0.1 %) nasal 2 spray intranasal BID 30 days #30 07/03/21 spray mL nebulizers (AeroEclipse II #1 ea 05/11/22 Nebulizer) Shower Chair #1 ea 05/20/22 commode #1 ea 09/21/22 walker #1 ea 09/29/22 oxymetazoline 0.05 % nasal spray 2 spray intranasal Q12H PRN nasal 04/07/24 (Afrin (oxymetazoline)) congestion 5 days #22 mL albuterol sulfate 2.5 mg/3 mL 2.5 mg (3 mL) inhalation Q4H PRN 04/19/24 (0.083 %) solution for nebulization shortness of breath or wheezing 30 days #360 mL fluticasone propionate 50 1 spray intranasal DAILY 30 days 06/16/24 mcg/actuation nasal #16 grams spray,suspension (Flonase Allergy Relief) fluticasone fur. 200 mcg-umeclid 1 inh inhalation DAILY 30 days #60 07/05/24 62.5 mcg-vilant 25 mcg ea inhalat.powder (Trelegy Ellipta) Qsymia 3.75 mg-23 mg capsule, See Rx Instructions PO DAILY 30 07/28/24 extended release days #46 caps (phentermine-topiramate) linaclotide 72 mcg capsule 72 mcg PO QAM #30 caps 09/06/24 (Linzess) cholecalciferol (vitamin D3) 125 125 mcg PO DAILY #90 caps 10/09/24 mcg (5,000 unit) capsule esomeprazole magnesium 40 mg 40 mg PO DAILY #30 caps 11/14/24 capsule,delayed release hydrocortisone 2.5 % topical cream 1 appl UT BID hemorrhoids #30 grams 11/14/24 with perineal applicator (Proctosol ) montelukast 10 mg tablet 10 mg PO DAILY #90 tabs 12/19/24 albuterol sulfate 90 mcg/actuation 2 inh inhalation Q6H PRN shortness 01/23/25 aerosol inhaler of breath or wheezing 30 days #18 grams roflumilast 500 mcg tablet 500 mcg PO DAILY 90 days #90 tabs 01/23/25 (Daliresp) tiotropium bromide 2.5 2 puff PO DAILY #4 mL 01/30/25 mcg/actuation mist for inhalation (Spiriva Respimat) ibuprofen 600 mg tablet 600 mg PO Q8H PRN pain #20 tabs 01/31/25 lidocaine 4 % topical patch 1 patch topical TID PRN pain #5 ea 02/14/25 nystatin 100,000 unit/gram topical 1 appl topical BID #30 grams 02/14/25 cream nystatin 100,000 unit/gram topical 1 appl topical BID #60 grams 02/14/25 powder pregabalin 200 mg capsule (Lyrica) 200 mg PO BID 30 days #60 caps 02/14/25 tramadol 50 mg tablet 50 mg PO Q12H pain 30 days #60 tabs 02/14/25 hydrochlorothiazide 12.5 mg tablet 12.5 mg PO QAM #90 tabs 02/15/25 sucralfate 1 gram tablet (Carafate) 2 g (2 x 1 gram) PO QNOON #60 tabs 03/15/25 Allergies Allergy/AdvReac Type Severity Reaction Status Date / Time Iodinated Contrast Media (IV Allergy Severe ANAPHYLAXIS Verified 03/26/25 19:33 CONTRAST) cyclobenzaprine (From Allergy Intermediate NUMBNESS Verified 03/26/25 19:33 FLEXERIL) gadobutrol (From GADAVIST) Allergy Intermediate DIFFICULTY Verified 03/26/25 19:33 BREATHING perfume (PERFUME) Allergy Intermediate TRIGGERS Verified 03/26/25 19:33 ASTHMA fish derived Allergy Unknown Swelling Verified 03/26/25 19:33 nuts AdvReac Itching Uncoded 03/26/25 19:33 Review of Systems Review of Systems: Yes all other systems are reviewed and are negative PMFSH Past Medical History Medical History Right knee pain Tracheobronchitis Physical exam Skin lesion Hypertension Left foot pain Chronic cough Right elbow pain Morbid obesity Generalized anxiety disorder Asthma Hypovitaminosis D Mild recurrent major depression Pleuritic chest pain COVID-19 Breast pain, left Sinusitis Low back pain Polyarthralgia Ophthalmoplegic migraine Menieres disease Frequent falls RBBB (right bundle branch block) Leg edema Breast mass, right Left elbow pain Fibromyalgia Ankle pain, right Labial lesion Rectal bleeding H. pylori duodenitis Submandibular lymphadenopathy Chronic neck pain AIRAM (obstructive sleep apnea) Panic attacks Surgical History S/P arthroscopic surgery of right knee History of endoscopy History of colonoscopy History of cholecystectomy History of hysterectomy History of tubal ligation History of section History of carpal tunnel surgery of right wrist Family History Family History Father Oral cancer Thyroid cancer Colon cancer Mother JOEL (non-insulin dependent diabetes mellitus in young) Gastric ulcer Paternal Grandfather Colon cancer Paternal Uncle Colon cancer Other Family history of colon cancer in father Social History Social History Housing: House Are you a primary director of health care marketing to a significant other at home: No Alcohol intake: never Comment: counts correct Patient Tobacco Use Status: Never used Tobacco e-Cigarette/Vaping Use: Never Used Second Hand Smoke Exposure: No service: No Current occupational status: unemployed Sexual orientation: Straight/Heterosexual Gender identity: Female Cognitive needs: No Hearing needs: No Vision needs: Yes Physical Exam ED Vital Signs: Vital Signs - 24 hr 03/26/25 19:30 03/26/25 22:06 03/27/25 02:21 Temperature 98 F 98.2 F 97.7 F Pulse Rate 82 82 80 Respiratory Rate 18 18 18 Blood Pressure 140/78 H 119/57 L 113/67 Pulse Oximetry 99 98 Oxygen Delivery Method Room Air Room Air Oxygen Flow Rate 99 BMI result Body Mass Index 31.3 CONSTITUTIONAL: The patient appears non-toxic, well nourished and in no acute distress. Vital signs as documented. HEAD: Atraumatic, normocephalic. EYES: EOMs intact, pupils equal and reactive, conjunctiva clear, no exudate. ENT: Nares patent, no discharge. Airway patent, no audible stridor, visible mucosa is pink and moist without noted lesions. NECK: Trachea is midline, no obvious masses or gross abnormalities. Full nonpainful range of motion. CHEST: Symmetric movement, normal appearance. LUNGS: LS present and CTAB, no w/r/r. Non-labored work of breathing. CARDIAC: Regular Rhythm, S1/S2 appreciated, no murmurs, rubs or gallops. ABDOMEN: Abdomen soft and non-tender x4 quadrants, no palpable masses or organomegaly. : Deferred. EXTREMITIES: Normal tone, moves all extremities spontaneously without reported pain. No obvious acute injury or deformity noted. NEURO: Alert and oriented x3, CN II-XII intact. Cerebellar Functioning intact. No sensory or motor deficits. Strength 5/5 x4. Speech clear and appropriate. PSYCH: Flattened affect, appropriate eye contact, fluid speech, with appropriate response to questioning. No reported suicidality or homicidality. SKIN: Warm, dry, color appropriate, normal turgor. No rashes noted. Course Course Course Narrative: RME: 55-year-old female presents to ED for falling down hitting her head having headache and dizziness. Imaging ordered. Medications Administered Discontinued Medications Generic Name Dose Route Start Last Admin Trade Name Lali PRN Reason Stop Dose Admin Diphenhydramine HCl 50 mg 03/27/25 00:38 03/27/25 01:14 Diphenhydramine Hcl 50 Mg/Ml Vial IVPUSH 03/27/25 00:39 50 mg ONCE ONE Administration Sodium Chloride 1,000 mls @ 999 mls/hr 03/27/25 00:45 03/27/25 03:27 Ns IV 03/27/25 01:45 Infused .Q1H1M DILLON Infusion Ketorolac Tromethamine 15 mg 03/27/25 00:38 03/27/25 01:14 Ketorolac Tromethamine 15 Mg/Ml Vial IVPUSH 03/27/25 00:39 15 mg ONCE ONE Administration Metoclopramide HCl 10 mg 03/27/25 00:38 03/27/25 01:14 Metoclopramide Hcl 10 Mg/2 Ml Vial IVPUSH 03/27/25 00:39 10 mg ONCE ONE Administration Medical Decision Making Medical Decision Making MDM Narrative: 12:53 AM 03/27/2025 (Jose Carlos ORTIZ): The patient is a 45-year-old female who presents to the ED for evaluation of persistent, severe headaches and associated symptoms after falling down a flight of stairs approximately two weeks ago. She states she ?lost balance? and fell down approximately 13 stairs, briefly losing consciousness per mother?s observation. No EMS was called at the time due to the patient?s concurrent depressive crisis and desire to avoid the hospital. Family considered sending her to the hospital however the patient refused. Since the fall she endorses constant, intense headaches described as a deep pain but also occurring with sensations of ?electricity in the brain , as well as episodes of dizziness including two episodes this past Wednesday during which her legs gave out leading to two additional ground level falls without head strike. The patient also reports she is experiencing intermittent nausea with non-bloody vomiting during severe headache flares, last occurring at 14:00 today. The patient reports she has also been experiencing significant stress/depression over the past 14 days related to family issues and holidays. She denies suicidal or homicidal ideation. Patient's spoke to her psychologist who recommended the ED visit today. The patient has been attempting Excedrin, ibuprofen, and tramadol on a reportedly almost daily basis since the fall. On exam the patient appears in no acute distress, no focal neurological deficit. However given the patient's symptoms a CT head and neck was ordered, basic labs will also be obtained. While obtaining workup the patient will be treated with a migraine cocktail. 2:34 AM 03/27/2025 (Jose Carlos ORTIZ): The patient's laboratory evaluation is reassuring, no evidence of acute leukocytosis, anemia, electrolyte abnormality, or DIANA. The patient's LFTs are unremarkable. The patient's CT head and neck has resulted and shows no acute calvarial fracture, cervical fracture, or intracranial pathology. The patient is likely suffering from a postconcussive syndrome. The patient is markedly well-appearing following interventions in the ED, sitting up, eating pizza. At this time there does not appear to be any emergent pathology requiring additional observation or admission. The patient will be discharged with supportive care. Admission/Observation Consideration of admission/observation: Escalation of care including admission/observation considered Lab Data 03/27/25 01:08 03/27/25 01:08 Labs: Lab Results 03/27/25 Range/Units 01:08 WBC 7.2 (4.8-10.8) X10*3/uL RBC 4.19 L (4.20-5.50) X10*6/uL Hgb 13.1 (12.0-16.0) g/dl Hct 37.6 (37.0-47.0) % MCV 89.7 (80.0-98.0) fL MCH 31.3 (27.0-33.0) pg MCHC 34.8 (31.0-35.0) g/dl RDW 12.3 (11.0-16.0) % Plt Count 273 (160-400) X10*3/uL MPV 8.7 L (9.4-12.3) fL Immature Gran % (Auto) 0.1 (0.0-0.4) % Neut % (Auto) 59.1 (45-73) % Lymph % (Auto) 32.3 (20-40) % [place] % (Auto) 6.0 (2-11) % Eos % (Auto) 2.2 (0-4) % Baso % (Auto) 0.3 (0-2) % Lymph # (Auto) 2.3 (1.2-4.9) X10*3/uL [place] # (Auto) 0.4 (0.1-1.2) X10*3/uL Eos # (Auto) 0.2 (0.0-0.4) X10*3/uL Baso # (Auto) 0.0 (0.0-0.2) X10*3/uL Abs Immat Gran (auto) 0.01 (0.00-0.03) X10*3/uL Absolute Neuts (auto) 4.3 (2.0-8.3) x10*3/uL Absolute Nucleated RBC 0.000 (0.0-0.012) X10*3/uL Nucleated RBC % (auto) 0.0 (0.0-0.2) /100WBC Sodium 143 (135-145) mmol/L Potassium 3.7 (3.3-5.1) mmol/L Chloride 110 H (96-108) mmol/L Carbon Dioxide 26 (22-29) mmol/L Anion Gap 11 L (12-20) BUN 10 (9-16) mg/dL Creatinine 0.62 (0.5-1.4) mg/dL Estim Creat Clear Calc 126.7 Estimated GFR > 60 Random Glucose 95 (60-115) mg/dL Calcium 9.2 (8.4-10.2) mg/dL Total Bilirubin 0.6 (0.0-1.0) mg/dL AST 20 (5-31) U/L ALT 22 (0-31) U/L Alkaline Phosphatase 79 (39-117) U/L Total Protein 7.0 (6.5-8.0) g/dL Albumin 4.3 (3.5-5.0) g/dL Radiology Impression Discussion of test interpretation with radiology: I have reviewed the radiologist's reading. External Record Review External record reviewed: Outpatient record and Prior outpatient labs Prescription Management I considered prescription management with: Pain Medication Discharge Plan Discharge Clinical Impression: Post concussion syndrome Patient Disposition: Home, Self-Care Instructions: Post Concussion Syndrome (ED) Additional Instructions: Will por elegir el [facility] del [facility] para norris atenci?n hoy. Afortunadamente, edel an?lisis de laboratorio son tranquilizadores y la tomograf?a computarizada no muestra hemorragia intracraneal ni fractura aguda de la columna cervical o del cr?lissa. Edel s?ntomas y los resultados de las pruebas de hoy son compatibles con el s?ndrome postconmocional. Afortunadamente, en rocco momento no hay evidencia de moiz?n proceso vanessa de emergencia que requiera hospitalizaci?n u observaci?n continua en el servicio de urgencias, por lo que puede regresar a casa con seguridad. Yamilka conmoci?n cerebral es yamilka contusi?n en el cerebro que puede causar n?useas, v?mitos, dolor de don y dificultad para concentrarse. Al igual que con cualquier otra contusi?n, debe descansar la tho afectada para prevenir la reaparici?n de los s?ntomas, nuevas lesiones u otras complicaciones. Para que norris cerebro descanse, evite el uso de dispositivos electr?nicos josephine tel?fonos celulares, tabletas o televisores. Evite tareas o proyectos mentales complejos que requieran walt concentraci?n y evite la actividad f?fritz extenuante. Yamilka vez que edel s?ntomas hayan desaparecido, puede aumentar gradualmente norris nivel de actividad. Si los s?ntomas reaparecen, suspenda la actividad que los caus? haseeb 48 horas antes de volver a intentarla. No debe participar en ninguna actividad que represente un alto riesgo de sufrir otra lesi?n en la don hasta que haya recuperado norris nivel de actividad habitual sin que reaparezcan los s?ntomas, m?s yamilka semana adicional. Debe maribel dosis alternas de ibuprofeno de 600 mg y paracetamol de 1000 mg cada 4 horas, seg?n sea necesario, para aliviar cualquier dolor adicional. Mant?ngase cristina hidratado y descanse lo suficiente. Consulte con norris m?dico de cabecera para yamilka reevaluaci?n, manejo adicional de edel s?ntomas, autorizaci?n para retomar edel actividades y atenci?n preventiva continua. Si no tiene un m?dico de cabecera, llame al [facility] al [phone] para asignarle feliz. Mientras espera, puede llamar a nuestra Cl?isela de Atenci?n sin Khadijah Previa al [phone] para necesidades que no cristian de emergencia. Regrese al departamento de emergencias si presenta un cambio repentino o grave en edel s?ntomas, fiebre superior a 38 ?C (100.4 ?F) que no mejora con paracetamol o ibuprofeno, v?mitos recurrentes o cualquier otro s?ntoma o preocupaci?n nuevos o que empeoren. Thank you for choosing [facility]'s Emergency Department for your care today. Thankfully your laboratory evaluation is reassuring, and your CT is negative for any intracranial bleeding, or acute fracture of your cervical spine, or skull. Your symptoms, and workup today are consistent with postconcussion syndrome. Thankfully at this time there is no evidence of an acute emergent process that requires admission to the hospital or continued ED observation, and it is safe to discharge you home. A concussion is a bruise to your brain which may cause nausea, vomiting, headache, and difficulty concentrating/focusing. Similar to any other bruising, you must rest the injured area to prevent recurrent symptoms, reinjury, or other complications. In order to rest your brain, please avoid use of electronics such as cell phones, iPads, or TVs. Please avoid highly complex mental tasks/projects that require intense focus or concentration, and please avoid strenuous physical activity. Once your symptoms have resolved, you may slowly increase your activity level. If symptoms return please discontinue the activity which caused the recurrence of symptoms for 48 hours, before again attempting the same activity. You may not participate in any activities that are a high risk for recurrent head injury until you've returned to your baseline activity level without recurrence of your symptoms, plus one additional week. You should take alternating (staggered) doses of ibuprofen 600mg and Tylenol 1000mg every 4 hours as needed for any additional pain. Please stay well hydrated and get plenty of rest. Please follow up with your primary care physician for re-evaluation, additional management of your symptoms, return to activity clearance, and continued preventative care. If you do not have a primary care physician, please call the [facility] at [phone] to establish a new primary care physician. While waiting to establish your new primary care physician, you can call our [facility] at [phone] for non-emergency needs. Please return to the emergency department if you develop a severe or sudden change in your symptoms, a fever over 100.4 that does not improve with Tylenol or Ibuprofen, recurrent vomiting, or any other new or worsening symptoms or concerns. Prescriptions: No Action (DME) Shower Chair Misc See Rx Instructions .Route Qty: 1 0RF Rx Instructions: As directed (DME) commode Kit See Rx Instructions .Route Qty: 1 0RF Rx Instructions: As directed (DME) walker [facility] See Rx Instructions .ROUTE .MEDSUPPLY Qty: 1 0RF Rx Instructions: As directed albuterol sulfate 2.5 mg /3 mL (0.083 %) solution for nebulization 2.5 mg inhalation Q4H PRN (Reason: shortness of breath or wheezing) 30 Days Qty: 360 1RF fluticasone propionate [Flonase Allergy Relief] 50 mcg/actuation spray,suspension 1 spray intranasal DAILY 30 Days Qty: 16 1RF Rx Instructions: administer into each nostril Trelegy Ellipta 200-62.5-25 mcg blister with device 1 inh inhalation DAILY 30 Days Qty: 60 0RF Qsymia 3.75-23 mg capsule, ER multiphase 24 hr See Rx Instructions PO DAILY 30 Days Qty: 46 0RF Rx Instructions: 1 capsule in the morning for 2 weeks, if no side effects, increase to 2 tablets orally daily; cholecalciferol (vitamin D3) 125 mcg (5,000 unit) capsule 125 mcg PO DAILY Qty: 90 3RF montelukast 10 mg tablet 10 mg PO DAILY Qty: 90 2RF Spiriva Respimat 2.5 mcg/actuation mist 2 puff PO DAILY Qty: 4 11RF lidocaine 4 % adhesive patch,medicated 1 patch topical TID PRN (Reason: pain) Qty: 5 0RF sucralfate [Carafate] 1 gram tablet 2 g PO QNOON Qty: 60 6RF (DME) AeroEclipse II Nebulizer [facility] See Rx Instructions .ROUTE .MEDSUPPLY Qty: 1 0RF Rx Instructions: As directed ibuprofen 600 mg tablet 600 mg PO Q8H PRN (Reason: pain) Qty: 20 0RF zolpidem 10 mg tablet 10 mg PO BEDTIME PRN (Reason: Sleep) clonazepam 1 mg tablet 1 mg PO BID PRN azelastine 137 mcg (0.1 %) aerosol,spray 2 spray intranasal BID 30 Days Qty: 30 6RF Rx Instructions: administer into each nostril hydroxyzine HCl 50 mg tablet 50 mg PO BID oxymetazoline [Afrin (oxymetazoline)] 0.05 % spray,non-aerosol 2 spray intranasal Q12H PRN (Reason: nasal congestion) 5 Days Qty: 22 0RF tramadol 50 mg tablet 50 mg PO Q12H 30 Days Qty: 60 0RF pregabalin [Lyrica] 200 mg capsule 200 mg PO BID 30 Days Qty: 60 5RF nystatin 100,000 unit/gram cream 1 appl topical BID Qty: 30 3RF nystatin 100,000 unit/gram powder 1 appl topical BID Qty: 60 3RF hydrochlorothiazide 12.5 mg tablet 12.5 mg PO QAM Qty: 90 0RF albuterol sulfate 90 mcg/actuation HFA aerosol inhaler 2 inh inhalation Q6H PRN (Reason: shortness of breath or wheezing) 30 Days Qty: 18 12RF roflumilast [Daliresp] 500 mcg tablet 500 mcg PO DAILY 90 Days Qty: 90 3RF Linzess 72 mcg capsule 72 mcg PO QAM Qty: 30 6RF fluoxetine 20 mg capsule 20 mg PO DAILY aripiprazole 2 mg tablet 2 mg PO DAILY hydrocortisone [Proctosol HC] 2.5 % cream with perineal applicator 1 appl [place] BID Qty: 30 6RF Rx Instructions: BE SURE TO INCLUDE RECTAL APPICATOR!! esomeprazole magnesium 40 mg capsule,delayed release(DR/EC) 40 mg PO DAILY Qty: 30 6RF Referrals: Keyla Ac PA-C [Primary Care Provider, Endocrinology] Clinical Impression: Post concussion syndrome Interventions: ED Discharge Assessment Last Done: 03/27/25 03:32 Discharge Date/Time: 03/27/25 03:33 Print Language: Chinese
--- NOTE | 2025-03-26 21:55 | PC.NURSE ---
Pt ambulatory to ED 22H from waiting room, assumed care of pt at this time. A&Ox3 skin pwd respirations even unlabored, endorsing headache x2 weeks since fall downstairs. Denies blood thinners, reports 3 second LOC. Reports feeling like water is running in the back of her head. Reports intermittent vision changes- losing vision in left eye. Feeling unbalanced and vomited x 1 on Wednesday. +photophobia. Neuros intact otherwise. Eye mask provided for light filtering. Awaiting primary provider rodrigo, aware of plan of care.
[2025-03-26 22:06] VITALS: BP 119/57; PULSE 82; RESP 18; TEMP 36.8
--- OUTSIDE RECORDS SUMMARY | 2025-03-26 22:25 | XMS_ITS | Clinical Summary ---
Author Organization 175 [facility] Address [address] [place] [address] Phone Care Team Providers Care Farm Equipment Engineer Name Role Phone Trisha Aaron MD Primary Care Provider [phone] Allergies Active Allergy Reactions Criticality Noted Date Comments Cyclobenzaprine 11/02/2018 Iodinated Contrast Media Rash 03/21/2025 Medications triamcinolone (KENALOG) 0.025 % cream APPLY TO AFFECTED AREA 3 TO 4 TIMES A DAY NEEDED FOR IRRITATION 11/05/19 24 Active cetirizine (ZyrTEC) 10 mg tablet TOME ABHISHEK TABLETA TODOS LOS D? 12/10/19 19 Active citalopram (CeleXA) 40 mg tablet Take 40 mg by mouth daily. 12/27/19 19 Active fluocinonide (LIDEX) 0.05 % topical solution APLIQUE AL ?LYNDA AFECTADA DOS VECES AL D?A FOR 2 WEEKS BREAK 1 WEEK AND REPEAT CUANDO SEA NECESARIO 10/13/19 19 Active zolpidem (AMBIEN) 5 mg tablet Take by mouth at bedtime as needed. Active montelukast (SINGULAIR) 10 mg tablet Take 1 tablet (10 mg total) by mouth at bedtime. Active clonazePAM (KlonoPIN) 0.5 mg tablet Take 0.5 mg by mouth 2 times daily as needed. Active pantoprazole (PROTONIX) 40 mg packet Take by mouth. Activ e albuterol sulfate (ProAir RespiClick) 90 mcg/actuation aerosol powdr breath activated Inhale 2 Puffs into the lungs 4 times daily as needed. Active budesonide-for moteroL (SYMBICORT) 80-4.5 mcg/actuation inhaler Inhale 2 Puffs into the lungs every 12 hours. This medication has inhaler steroid: Rinse mouth with water and expectorate after each dose to prevent oral/esophageal candidiasis or fungal infection. 02/04/20 18 Active albuterol 2.5 mg /3 mL (0.083 %) nebulizer solution Take 1 Vial by nebulization every 4 hours as needed for Wheezing for up to 30 days. 02/04/20 18 Active miscellaneous medical supply [facility]. DEVICES (BED WEDGE) [facility] 1 Device by Does not apply route at bedtime. 10/18/19 19 Active DULoxetine (CYMBALTA) [address] capsule take 1 capsule orally 2 times a day 07/07/19 25 Active ARIPiprazole (ABILIFY) 2 mg tablet TAKE 1 TABLET BY MOUTH ONCE A DAY FOR MOOD STABILITY. 09/19/19 25 Active traMADoL (ULTRAM) 50 mg tablet TOME ABHISHEK TABLETA POR V A ORAL EVERY 6 HOURS NEEDED FOR PAIN 09/21/19 25 Active pregabalin (LYRICA) 200 mg capsule Take 1 capsule (200 mg total) by mouth 2 (two) times a day. 10/25/19 25 Active diclofenac (VOLTAREN) 1 % topical gel APPLY 4 G TOPICALLY 3 TIMES DAILY. 10/20/19 24 025 Discontinued meloxicam (MOBIC) 15 mg tablet TOME ABHISHEK TABLETA TODOS LOS DAVALOS 03/26/20 23 025 Discontinued oxyCODONE-acet aminophen (PERCOCET) 5-325 mg per tablet Take 1 tablet by mouth every 4 hours as needed for Pain for up to 7 days. 05/16/19 21 025 Discontinued naproxen (NAPROSYN) 500 mg tablet Take 1 tablet (500 mg total) by mouth 2 (two) times a day. 04/03/20 19 025 Discontinued diclofenac (VOLTAREN) 75 mg EC tablet TAKE 1 TABLET WITH FOOD OR MILK TWICE A DAY ORALLY 30 10/13/19 19 025 Discontinued HYDROcodone-ac etaminophen (NORCO) 5-325 mg per tablet TOME ABHISHEK TABLETA POR V?A ORAL CADA OCHO HORAS CUANDO SEA NECESARIO 12/30/19 19 025 Discontinued ketoconazole (NIZORAL) 2 % shampoo PLEASE SEE ATTACHED FOR DETAILED DIRECTIONS 10/13/19 025 Discontinued predniSONE (DELTASONE) 20 mg tablet TOME ABHISHEK TABLETA TODOS LOS D? 12/28/19 19 025 Discontinued tiotropium (Spiriva Respimat) 2.5 mcg/actuation inhalation spray Inhale 5 mcg into the lungs daily for 30 days. 10/18/19 025 Discontinued traZODone (DESYREL) 100 mg tablet Take 100 mg by mouth at bedtime. 150mg 025 Discontinued citalopram (CeleXA) 10 mg tablet Take 10 mg by mouth daily. 025 Discontinued fluticasone-sa lmeterol (ADVAIR DISKUS) 250-50 mcg/dose diskus inhaler Inhale 1 Puff into the lungs every 12 hours. 025 Discontinued Active Problems Problem Noted Date Diagnosed Date [...] Team Description 12/29/2024 Telephone Thoracic Surgery - [place] [address] [place] [address] Reynaldo Nagel MA from Last 3 Months Immunizations Immunization Administration Dates Next Due Influenza Quadravalent, MDCK , 0.5ml, preservative free (Flucelvax) 6mo and older 04/06/2018 Surgical History Surgery Date Site/Laterality Comments OTHER SURGICAL HISTORY PROCEDURE: [facility] EX[facility]&/RPR TRIANG FIBROCART&/JOINT SECTION PROCEDURE: HISTORICAL DELIVERY CHOLECYSTECTOMY CARPAL TUNNEL RELEASE Bilateral MENISCECTOMY Right Medical History Medical History Date Comments Asthma DX:Asthma Carpal tunnel syndrome DX:Carpal tunnel syndrome Hypertension DX:Hypertension Depression DX:Depression Gastritis DX:Gastritis Pneumonia 2017 DX:Pneumonia; CO MMENT: hospitalized in 2017 Anxiety Arthritis Neuromuscular disorder ([facility] V24, [facility] V28) Sleep apnea GERD (gastroesophageal reflux disease) PONV (postoperative nausea and vomiting) Family History Medical History Relation Name Comments [...] on file Sexual Orientation Not on file Last Filed Vital Signs Vital Sign Reading Time Taken Comments Blood Pressure 130/82 04/15/2023 3:00 PM EST Pulse 88 04/15/2023 3:00 PM EST Temperature - - Respiratory Rate - - Oxygen Saturation - - Inhaled Oxygen Concentration - - Weight 88 kg (194 lb) 03/21/2025 11:00 AM EST Height 167.6 cm (5' 6 ) 03/21/2025 11:00 AM EST Body Mass Index 31.31 03/21/2025 11:00 AM EST Plan of Treatment Upcoming Encounters Date Type Department Care Team (Latest Contact Info) Description 04/20/2025 7:30 AM EST Hospital Encounter [facility] Main OR [address] [place] [phone] Kenneth Bucio DPM [address] [address] 04/20/2025 7:30 AM EST - 04/20/2025 10:00 AM EST Surgery [facility] OR [address] [place] [phone] Kenneth Bucio DPM [address] [address] LEFT ANKLE LATERAL STABILIZATION [[id number] (CPT )] 05/03/2025 10:00 AM EST Office Visit Orthopedic Surgery - [place] [address] [facility] [address] [place] [phone] Kenneth Bucio, DPM [address] [place] [address] Scheduled Procedures Name Priority Associated Diagnoses Date/Ti me STABILIZATION ANKLE LATERAL Peroneal tendinitis of left lower extremity Disorder of ligament of ankle, left 04/20/2025 7:30 AM EST REPAIR TENDON LEG Peroneal tendinitis of left lower extremity Disorder of ligament of ankle, left 04/20/2025 7:30 AM EST Health Maintenance Due Date Last Done Comments Breast Cancer Screening 1979 Colorectal Cancer Screening: Colonoscopy 1979 Drug Screen 1979 Naloxone Order 1979 Non-Opioid Controlled Substance Agreement 1979 Opioid Substance Agreement 1979 Pain Assessment 1979 DTaP,Tdap,and Td Vaccines (1 - Tdap) 1998 Hepatitis B Vaccines (1 of 3 - 19+ 3-dose series) 1998 Pneumococcal Vaccine: Pediatrics (0 to 5 Years) and At-Risk Patients (6 to 49 Years) (1 of 2 - PCV) 1998 Cervical Cancer Screening: Pap Smear 2000 Cholesterol Screening (Lipid Panel) 03/08/2022 HIV Screening 03/08/2022 Hepatitis C Screening 03/08/2022 Social Influencers of Health Screening 03/08/2022 Depression Screening 04/05/2024 COVID-19 Vaccine (3 - 2024- season) 2024 07/23/2020, 06/25/2020 Influenza Vaccine (#1) [...] on patient's age to complete this topic Goals Goal Patient Goal Type Associated Problems Recent Progress Patient-Stated? Author Autogenerat ed Goal Care Plan Autogenerated Problem No Kenneth Bucio DPM Additional Health Concerns Active Problems Noted Date Diagnosed Date Autogenerated Problem 03/22/2025 Insurance PLAN Care Teams Farm Equipment Engineer Relationship Specialty Start Date End Date Trisha Aaron MD [address] [place] [address] , [address] [facility] D/B/A: [facility] Carlin PCP - General Internal Medicine 12/31/17
--- NOTE | 2025-03-27 00:14 | PC.NURSE ---
Provider to bedside for primary eval, plan for CT, pt aware and agreeable to plan of care.
[2025-03-27 01:14] LABS: MANUAL DIFF FLAG NO
[2025-03-27 01:15] LABS: Hematocrit 37.6 % (37.0-47.0); Hemoglobin 13.1 g/dl (12.0-16.0); Imm Gran Abs Auto 0.01 X10*3/uL (0.00-0.03); Imm Gran Pct Auto 0.1 % (0.0-0.4); Lymphocytes Absolute Auto 2.3 X10*3/uL (1.2-4.9); Mean Corpuscular HGB Conc 34.8 g/dl (31.0-35.0); Mean Corpuscular Hemoglobin 31.3 pg (27.0-33.0); Mean Corpuscular Volume 89.7 fL (80.0-98.0); NRBC Abs Auto 0.000 X10*3/uL (0.0-0.012); NRBC Pct Auto 0.0 /100WBC (0.0-0.2); Platelet Count 273 X10*3/uL (160-400); Red Blood Count 4.19 X10*6/uL (4.20-5.50); White Blood Count 7.2 X10*3/uL (4.8-10.8)
[2025-03-27 01:29] LABS: Alanine Aminotransferase 22 U/L (0-31); Albumin Level 4.3 g/dL (3.5-5.0); Alkaline Phosphatase 79 U/L (39-117); Anion Gap 11 (12-20); Aspartate Amino Transferase 20 U/L (5-31); Blood Urea Nitrogen 10 mg/dL (9-16); Calcium 9.2 mg/dL (8.4-10.2); Carbon Dioxide 26 mmol/L (22-29); Chloride 110 mmol/L (96-108); Creatinine Clr Calc Pharmacy 126.7; Estimated Glomerular Filt Rate > 60; Potassium 3.7 mmol/L (3.3-5.1); Sodium 143 mmol/L (135-145); Total Protein 7.0 g/dL (6.5-8.0)
--- NOTE | 2025-03-27 01:31 | PC.NURSE ---
IV access obtained, pt medicated per MAR. IVF hung and infusing without difficulty. labs drawn and sent for processing, awaiting results.
[2025-03-27 02:21] VITALS: BP 113/67; PULSE 80; RESP 18; TEMP 36.5; O2SAT 98
[2025-03-27 03:32] VITALS: BP 113/67; PULSE 80; RESP 18; TEMP 36.5; O2SAT 98
== END 2025-03-27 03:33 | disposition home or self-care (01) ==
PROVIDERS: Physician Assistant; Emergency Provider Emergency Medicine; PCP Physician Assistant
DX: F07.81 Postconcussional syndrome (principal); R51.9 Headache, unspecified; M54.2 Cervicalgia; R11.0 Nausea; R42 Dizziness and giddiness; Z79.899 Other long term (current) drug therapy
CPT/HCPCS: 36415; 70450; 72125; 80053; 85025; 96361; 96374; 96375; 99284; 99285; J1200; J1885; J2765

== ENCOUNTER → 2025-03-27 | Outpatient (BNV) | payer OTHER, SELFPAY | PROVIDERS: Emergency Provider Emergency Medicine; PCP Physician Assistant; Visit Provider Radiology Neuroradiology | DX: S09.90XA Unspecified injury of head, initial encounter (principal); Z04.3 Encounter for examination and observation following other accident | CPT/HCPCS: 70450; 72125 ==

== ENCOUNTER 2025-04-04 12:55 | Outpatient (REF) | payer OTHER, SELFPAY ==
--- OUTSIDE RECORDS SUMMARY | 2025-04-04 15:12 | XMS_ITS | Encounter Summary ---
Author Organization [facility] Prior to 02/04/[address] [place] [address] Care Team Providers Care Hvac/R Service Technician Name Role Phone Trisha Aaron MD Primary Care Provider Mona bui Encounter Details Date Type Department Care Team Description 06/11/2020 Orders Only Medical Records [address] [place] [address] Ya Ramírez DO Social History Tobacco Use [...] on filedocumented in this encounter Care Teams Hvac/R Service Technician Relationship Specialty Start Date End Date Trisha Aaron MD PCP - General Internal Medicine 12/31/17 documented as of this encounter
--- OUTSIDE RECORDS SUMMARY | 2025-04-04 15:12 | XMS_ITS | Encounter Summary ---
Author Organization [facility] Prior to 02/04/[address] [place] [address] Care Team Providers Care Examination Grader Name Role Phone Trisha Aaron MD Primary Care Provider Mona bui Reason for Visit * Reason Comments E-prescribe Rx Request Encounter Details Date Type Department Care Team Description 03/23/2023 Refill [facility] [address] [place] [phone] Kenneth Bucio DPM E-prescribe Rx Request [...] on filedocumented in this encounter Care Teams Examination Grader Relationship Specialty Start Date End Date Trisha Aaron MD PCP - General Internal Medicine 12/31/17 documented as of this encounter
--- OUTSIDE RECORDS SUMMARY | 2025-04-04 15:12 | XMS_ITS | Encounter Summary ---
Author Organization [facility] [facility] Prior to 02/04/[address] [place] [address] Care Team Providers Care Offset Plate Maker Name Role Phone Trisha Aaron MD Primary Care Provider Mona bui Reason for Visit * Reason Onset Date Comments External Sleep Study Request 10/18/2018 Jasiel e sleep study Encounter Details Date Type Department Care Team Description 10/18/2018 Telephone Pulmonology - [address] [place] [address] Bryan Sheehan MD External Sleep Study Request (Home sleep study) Social History Tobacco Use Types Packs/Day Years Used Date Smoking Tobacco: Never Smokeless Tobacco: Never Sex Assigned at Date Recorded Not on file documented as of this encounter Miscellaneous Notes * Telephone Encounter - Christina Macy - 10/18/2018 1:19 PM EDT [facility]-no auth required Order, benefits faxed to Sleep Medicine Notification letter sent. documented in this encounter Plan of Treatment Not on file documented as of this encounter Visit Diagnoses Not on filedocumented in this encounter Care Teams Offset Plate Maker Relationship Specialty Start Date End Date Trisha Aaron MD PCP - General Internal Medicine 12/31/17 documented as of this encounter
--- OUTSIDE RECORDS SUMMARY | 2025-04-04 15:12 | XMS_ITS | Clinical Summary ---
Author Organization [facility] [employer] [facility] Prior to 02/04/2024 Address [address] [place] [address] Care Team Providers Care Manager Database Name Role Phone Trisha Aaron MD Primary Care Provider Mona bui Allergies Active Allergy Reactions Severity Noted Date [...] at bedtime as needed. 0 Active Tiotropium Lincoln Monohydrate (SPIRIVA RESPIMAT) 2.5 MCG/ACT Aero Soln [...] 04/05/2024 INFLUENZA (#1) 2024 04/06/2018 Care Teams Manager Database Relationship Specialty Start Date End Date Trisha Aaron MD PCP - General Internal Medicine 12/31/17
--- OUTSIDE RECORDS SUMMARY | 2025-04-04 15:12 | XMS_ITS | Encounter Summary ---
Author Organization [facility] Prior to 02/04/[address] [place] [address] Care Team Providers Care Technician Helper Instrument Name Role Phone Trisha Aaron MD Primary Care Provider Mona bui Reason for Visit * Reason Comments E-prescribe Rx Request Encounter Details Date Type Department Care Team Description 10/11/2022 Refill [facility] [address] [place] [phone] Kenneth Bucio DPM E-prescribe Rx Request [...] on filedocumented in this encounter Care Teams Technician Helper Instrument Relationship Specialty Start Date End Date Trisha Aaron MD PCP - General Internal Medicine 12/31/17 documented as of this encounter
--- OUTSIDE RECORDS SUMMARY | 2025-04-04 15:12 | XMS_ITS | Encounter Summary ---
Author Organization [facility] [employer] [facility] Prior to 02/04/[address] [place] [address] Care Team Providers Care Health Care Administrator Name Role Phone Trisha Aaron MD Primary Care Provider Mona bui Reason for Visit * Reason Onset Date Comments Information Needed 05/16/2019 Encounter Details Date Type Department Care Team Description 05/16/2019 Telephone [employer] [facility] [address] [address] Trisha Aaron MD Information Needed Social History [...] on filedocumented in this encounter Care Teams Health Care Administrator Relationship Specialty Start Date End Date Trisha Aaron MD PCP - General Internal Medicine 12/31/17 documented as of this encounter
--- OUTSIDE RECORDS SUMMARY | 2025-04-04 15:12 | XMS_ITS | Encounter Summary ---
Author Organization [facility] Prior to 02/04/[address] [place] [address] Care Team Providers Care Sewing Demonstrator Name Role Phone Trisha Aaron MD Primary Care Provider Mona bui Encounter Details Date Type Department Care Team Description 02/10/2019 Orders Only OBGYN - [place] [address] [place] [address] Ya Ramírez DO Menorrhagia with regular cycle [...] menstruation documented in this encounter Care Teams Sewing Demonstrator Relationship Specialty Start Date End Date Trisha Aaron MD PCP - General Internal Medicine 12/31/17 documented as of this encounter
--- OUTSIDE RECORDS SUMMARY | 2025-04-04 15:12 | XMS_ITS | Encounter Summary ---
Author Organization [facility] Prior to 02/04/[address] [place] [address] Care Team Providers Care Sales And Marketing Director Name Role Phone Trisha Aaron MD Primary Care Provider Mona bui Reason for Visit * Reason Comments E-prescribe Rx Request Encounter Details Date Type Department Care Team Description 11/10/2022 Refill [facility] [address] [place] [phone] Kenneth Bucio DPM E-prescribe Rx Request [...] filedocumented in this encounter Care Teams Sales And Marketing Director Relationship Specialty Start Date End Date Trisha Aaron MD PCP - General Internal Medicine 12/31/17 documented as of this encounter
--- OUTSIDE RECORDS SUMMARY | 2025-04-04 15:12 | XMS_ITS | Encounter Summary ---
Author Organization [facility] Prior to 02/04/[address] [place] [address] Care Team Providers Care Career Placement Services Counselor Name Role Phone Trisha Aaron MD Primary Care Provider Mona bui Reason for Visit * Reason Comments E-prescribe Rx Request Encounter Details Date Type Department Care Team Description 02/22/2023 Refill [facility] [address] [place] [phone] Kenneth Bucio DPM E-prescribe Rx Request [...] on filedocumented in this encounter Care Teams Career Placement Services Counselor Relationship Specialty Start Date End Date Trisha Aaron MD PCP - General Internal Medicine 12/31/17 documented as of this encounter
--- OUTSIDE RECORDS SUMMARY | 2025-04-04 15:12 | XMS_ITS | Encounter Summary ---
Author Organization [facility] Prior to 02/04/[address] [place] [address] Care Team Providers Care Clinical Provider Trainer Name Role Phone Trisha Aaron MD Primary Care Provider Mona bui Reason for Visit * Reason Onset Date Comments Provider Call Back 10/27/2018 Encounter Details Date Type Department Care Team Description 10/27/2018 Telephone Pulmonology - [address] [place] [phone] Bryan Sheehan MD Provider Call [...] filedocumented in this encounter Care Teams Clinical Provider Trainer Relationship Specialty Start Date End Date Trisha Aaron MD PCP - General Internal Medicine 12/31/17 documented as of this encounter
--- OUTSIDE RECORDS SUMMARY | 2025-04-04 15:12 | XMS_ITS | Encounter Summary ---
Author Organization [employer] [facility] Prior to 02/04/[address] [place] [address] Care Team Providers Care Power Plant Operator Apprentice Name Role Phone Trisha Aaron MD Primary Care Provider Mona bui Encounter Details Date Type Department Care Team Description 04/11/2019 Release of Information Medical Records [address] [place] [address] Abstract, Provider Social History Tobacco Use Types [...] on filedocumented in this encounter Care Teams Power Plant Operator Apprentice Relationship Specialty Start Date End Date Trisha Aaron MD PCP - General Internal Medicine 12/31/17 documented as of this encounter
--- OUTSIDE RECORDS SUMMARY | 2025-04-04 15:12 | XMS_ITS | Encounter Summary ---
Author Organization [facility] Prior to 02/04/[address] [place] [address] Care Team Providers Care Gas Specialist Name Role Phone Trisha Aaron MD Primary Care Provider Mona bui Reason for Visit * Reason Comments E-prescribe Rx Request Encounter Details Date Type Department Care Team Description 04/27/2023 Refill [facility] [address] [place] [phone] Kenneth Bucio DPM E-prescribe Rx Request [...] on filedocumented in this encounter Care Teams Gas Specialist Relationship Specialty Start Date End Date Trisha Aaron MD PCP - General Internal Medicine 12/31/17 documented as of this encounter
--- OUTSIDE RECORDS SUMMARY | 2025-04-04 15:12 | XMS_ITS | Encounter Summary ---
Author Organization [facility] Prior to 02/04/[address] [place] [address] Care Team Providers Care Clothing Supervisor Name Role Phone Trisha Aaron MD Primary Care Provider Mona bui Encounter Details Date Type Department Care Team Description 02/09/2018 Release of Information Medical Records [address] [place] [address] Abstract, Provider Social History Tobacco Use Types Packs/Day Years Used Date Smoking Tobacco: Never Smokeless Tobacco: Never Sex Assigned at Date Recorded Not on file documented as of this encounter Plan of Treatment Not on file documented as of this encounter Visit Diagnoses Not on filedocumented in this encounter Care Teams Clothing Supervisor Relationship Specialty Start Date End Date Trisha Aaron MD PCP - General Internal Medicine 12/31/17 documented as of this encounter
[2025-04-04 16:18] LABS: MANUAL DIFF FLAG NO
[2025-04-04 16:43] LABS: Hematocrit 41.3 % (37.0-47.0); Hemoglobin 14.5 g/dl (12.0-16.0); Imm Gran Abs Auto 0.02 X10*3/uL (0.00-0.03); Imm Gran Pct Auto 0.3 % (0.0-0.4); Lymphocytes Absolute Auto 1.3 X10*3/uL (1.2-4.9); Mean Corpuscular HGB Conc 35.1 g/dl (31.0-35.0); Mean Corpuscular Hemoglobin 31.0 pg (27.0-33.0); Mean Corpuscular Volume 88.2 fL (80.0-98.0); NRBC Abs Auto 0.000 X10*3/uL (0.0-0.012); NRBC Pct Auto 0.0 /100WBC (0.0-0.2); Platelet Count 330 X10*3/uL (160-400); Red Blood Count 4.68 X10*6/uL (4.20-5.50); White Blood Count 7.1 X10*3/uL (4.8-10.8)
[2025-04-04 17:56] LABS: Alanine Aminotransferase 24 U/L (0-31); Albumin Level 4.8 g/dL (3.5-5.0); Alkaline Phosphatase 81 U/L (39-117); Anion Gap 15 (12-20); Aspartate Amino Transferase 27 U/L (5-31); Blood Urea Nitrogen 10 mg/dL (9-16); Calcium 9.5 mg/dL (8.4-10.2); Carbon Dioxide 24 mmol/L (22-29); Chloride 105 mmol/L (96-108); Estimated Glomerular Filt Rate > 60; Potassium 3.8 mmol/L (3.3-5.1); Sodium 140 mmol/L (135-145); Total Protein 8.1 g/dL (6.5-8.0)
== END 2025-04-04 12:56 | disposition home or self-care (01) ==
LOC: HO.WFDLDS 12:55
PROVIDERS: PCP Physician Assistant; Visit Provider Physician Assistant
DX: I10 Essential (primary) hypertension (principal); R11.10 Vomiting, unspecified; R29.6 Repeated falls; M79.7 Fibromyalgia; J45.909 Unspecified asthma, uncomplicated; R51.9 Headache, unspecified; F33.0 Major depressive disorder, recurrent, mild; F41.1 Generalized anxiety disorder; R10.9 Unspecified abdominal pain; R63.0 Anorexia; Z68.32 Body mass index [BMI] 32.0-32.9, adult
CPT/HCPCS: 36415; 80053; 85025; 99212

== ENCOUNTER 2025-04-04 12:55 | Outpatient (AMB) | payer OTHER, SELFPAY ==
--- NOTE | 2025-04-04 13:04 | A.OFFPC_ITS ---
Vital Signs 04/04/25 13:19 Height 5 ft 6 in Weight 201 lb BMI 32.4 BP 129/79 Blood Pressure Location Rt brachial Position Sitting Respiration 14 Pulse 71 Pulse Source Pulse Oximeter Temp 97.9 F Temp Source Oral Pulse Oximetry (%) 99 Oxygen Delivery Method Room Air Intake Visit Reasons: ED from [facility] on 03/26 - Fell and hit her head Intake Note: Emergency room follow up Candy Forming Machine Operator Required: Yes Candy Forming Machine Operator Name: [id number] Michel Allergies Iodinated Contrast Media (IV CONTRAST) Allergy (Severe, Verified 04/04/25 13:08) ANAPHYLAXIS cyclobenzaprine (From FLEXERIL) Allergy (Intermediate, Verified 04/04/25 13:08) NUMBNESS gadobutrol (From GADAVIST) Allergy (Intermediate, Verified 04/04/25 13:08) DIFFICULTY BREATHING perfume (PERFUME) Allergy (Intermediate, Verified 04/04/25 13:08) TRIGGERS ASTHMA fish derived Allergy (Unknown, Verified 04/04/25 13:08) Swelling nuts Adverse Reaction (Uncoded 04/04/25 13:08) Itching Tobacco use date assessed: 02/14/25 Dental Screening Dental Screen Date: 06/14/24 HPI ED from [facility] on 03/26 - Fell and hit her head HPI Details Patient is a 45-year-old female with a significant medical history asthma, obstructive sleep apnea, htn, morbid obesity, anxiety, depression, frequent falls, fibromyalgia, Meniere's disease, polyarthralgia presenting today for a follow up. phone reports analysis manager used today [id number] translators were used today as service was interrupted Recently went to ED for falling and hitting her head. She states that she has been falling a lot lately. She is not sure if it is related to stress.She did have a head and neck ct at the er. -She states her first fall she slipped o n the top stair and couldn't catch herself. She states following the initial fall she fell the following day. She states she had a bad headache from first fall and was not paying attention and fell again. She states she then fell again and felt like her legs gave out on her and her vision was blurry and she slipped again on the stairs and did hit her head again. She went to the ER at that time and had had negative imaging. She states that her balance just now feels off. She is still getting headaches but they are a lot better now. Scheduled with neurology soon. -She is crying here today in the office as her daughter is dating someone who is 20 years older than her and she does not agree with this decision. Pt lives with her daughter. She has also been feeling like she has something in her stomach blocking her from eating. She has had vomiting after eating. She states that she has a decreased appetite. She has gained weight from the last week. She states that it feels like she has a knot in her stomach. She is on nexium and just started gaviscon. This does somewhat help but she thinks that it is because of all the stress with her daughter that she does not feel like she is able to eat. She states her stomach has been in knots because of the anxiety related to her daughter. She is very tearful today and states that it was her psychologist who she speaks with 2 to 3 times a week that recommended she come in just to make sure that there is nothing else. She denies any fevers or chills. She does have a deputy coroner investigator and states that she does plan to call them as well. Vasc: She has noted an increase in veins in her lower legs. She is following with vascular surgery. CV: Blood pressure today in the office is 129/76. She is on hctz 12.5 mg. She had a recent cardiac workup with a non diagnostic stress test as she was not able to exercise to the full capabilities. From what was seen however, no signs of ischemia. Her Holter and echo were WNL. She states her chest discomfort is better. No LOC. No dizziness, nausea, or vomiting. Psych: She follows with [facility]. She is currently on ambien, clonazepam. She feels that her anxiety and depression are currently stable but attributes this to her pain. Rheum: followed with rheumatology and was told it was it is fibromyalgia and that beyond taking Lyrica and tramadol as needed they would not be able to offer much support. She wonders if the fibromyalgias causing her headaches. tried cymbalta in the past but no improvement. we retried this and no improvement. Derm: States that she has been getting horrible rashes in the skin folds of her abdomen. States that since she has lost weight she has had issues with this despite using powders and creams [id number]. She has lost about 50 lb. Pulm: asthma well controlled and cpap she does not like to use but we will use it a few times a week. Follows with [facility] pulmonology. Neuro: has a long standing hx of headaches and states that she has never had an MRI. Scheduled next week for MRI. She is scheduled in April for neurology. Mammo: UTD, 12/27 [facility] Medical History Right knee pain Tracheobronchitis Physical exam Skin lesion Hypertension Left foot pain Chronic cough Right elbow pain Morbid obesity Generalized anxiety disorder Asthma Hypovitaminosis D Mild recurrent major depression Pleuritic chest pain COVID-19 Breast pain, left Sinusitis Low back pain Polyarthralgia Ophthalmoplegic migraine Menieres disease Frequent falls RBBB (right bundle branch block) Leg edema Breast mass, right Left elbow pain Fibromyalgia Ankle pain, right Labial lesion Rectal bleeding H. pylori duodenitis Submandibular lymphadenopathy Chronic neck pain AIRAM (obstructive sleep apnea) Panic attacks Surgical History S/P arthroscopic surgery of right knee History of endoscopy History of colonoscopy History of cholecystectomy History of hysterectomy History of tubal ligation History of section History of carpal tunnel surgery of right wrist Family History Father Oral cancer Thyroid cancer Colon cancer Mother NIDDY (non-insulin dependent diabetes mellitus in young) Gastric ulcer Paternal Grandfather Colon cancer Paternal Uncle Colon cancer Other Family history of colon cancer in father Social History Housing: House Are you a primary healthcare science specialist to a significant other at home: No Alcohol intake: never Comment: counts correct Patient Tobacco Use Status: Never used Tobacco e-Cigarette/Vaping Use: Never Used Second Hand Smoke Exposure: No service: No Current occupational status: unemployed Sexual orientation: Straight/Heterosexual Gender identity: Female Cognitive needs: No Hearing needs: No Vision needs: Yes Questionnaire Thrive Questionnaire Date Thrive assessed: 05/02/24 I am a: Patient What is your living situation today?: I have a steady place to live Within the past 12 months, did the food you bought not last and you didn't have the money to get more?: I choose not to answer this question Within the past 12 months, did you worry whether your food would run out before you got money to buy more?: I choose not to answer this question Do you have trouble paying for medicines?: I choose not to answer this question Do you have trouble getting transportation to medical appointments?: I choose not to answer this question Do you have trouble paying your heating and electricity bill?: I choose not to answer this question Do you have trouble taking care of your child, family member or friend?: I choose not to answer this question Do you have trouble with day-to-day activities such as bathing, preparing meals, shopping, managing finances, etc.?: Yes Are you currently unemployed and looking for a job?: I choose not to answer this question Are you interested in more education?: I choose not to answer this question Currently or been in a relationship where the following occur: No concerns reported THRIVE Score: 0 LALIT-7 AMB Questionnaire LALIT-7 Date LALIT - 7 assessed: 06/14/24 Source: Developed by Drs. Juarez Westfall, Suzie Delarosa, Cornelius Brown and colleagues, with an educational nella from [employer]. Physical exam (Primary Care) Vital Signs: Last Vital Signs Temp 97.9 F 04/04/25 13:19 Pulse 71 04/04/25 13:19 Resp 14 04/04/25 13:19 BP 129/79 04/04/25 13:19 Pulse Ox 99 04/04/25 13:19 Oxygen Delivery Method Room Air 04/04/25 13:19 BMI result Body Mass Index 32.4 Tobacco/Smoking Status: Tobacco use Status Tobacco use date assessed 02/14/25 04/04/25 13:06 Patient Tobacco Use Status Never used Tobacco 04/04/25 13:06 e-Cigarette/Vaping Use Never Used 04/04/25 13:06 Thrive Assessment: Date of Thrive Assessment Date Thrive assessed 05/02/24 04/04/25 13:06 Currently or been in a relationship where the following occur: No concerns reported Const Orientation/consciousness: patient oriented x3 HENMT Ears: hearing grossly normal bilaterally Neck Thyroid: Thyroid normal Lymphatic: no lymphadenopathy noted Resp Auscultation: clear to auscultation bilaterally Cardio Rate: regular rate Rhythm: regular rhythm Heart sounds: S1 normal heart sound present and S2 normal heart sound present GI Other: Diffuse, mild tenderness to palpation throughout the abdomen without rebound or guarding. Inspection: Yes normal to inspection Palpation (GI): Soft to palpation Auscultation: normoactive bowel sounds Rectal Exam - Female: deferred Skin General skin exam: no rashes or lesions noted Neuro General: patient oriented x3, gait normal and no focal motor deficits Results Reviewed Results Reviewed: Findings: No acute intracranial hemorrhage. No midline shift or hydrocephalus. Basal ganglia mineralization, dural calcifications, and vascular calcifications are redemonstrated. No large arterial territorial infarction by CT. Mucosal thickening noted in the imaged paranasal sinuses. Metal artifacts including from partially imaged left nasal piercing. Trace mastoid effusions. No acute skull fracture. Bilateral imaged nasal bone fractures appear old/chronic. Dermal scalp calcifications are redemonstrated. IMPRESSION: 1. No acute intracranial abnormality by CT. FINDINGS: The exam is incomplete with only sagittal T1 sequences obtained secondary to claustrophobia. Midline structures are intact. Sellar/suprasellar region is normal. Craniocervical junction is intact with normal position of the cerebellar tonsils. There are numerous prominent cervical lymph nodes. MR/MR head/brain wo con IMPRESSION: Incomplete examination secondary to claustrophobia. Consider noncontrast CT versus conscious sedation MRI under anesthesiology Findings: No acute fracture of the cervical spine. No significant change in vertebral heights are alignments, with mild/minimal anterolisthesis at C5-C6. Mild vertebral height losses including C4 through C6 without significant change. Disc osteophyte complexes, ligament calcifications, and facet arthropathy are redemonstrated-multifocal. No significant osseous spinal stenosis by CT. No paraspinal hematoma. Subcutaneous edema in metal streak artifacts noted. Mild motion of the scarring of the imaged lung apices. IMPRESSION: No acute fracture of the cervical spine. Coding Level of Care Code Est Pt Level 4 (65169) Add On Problem Visit Only Diagnoses Mild recurrent major depression F33.0 Generalized anxiety disorder F41.1 Abdominal pain R10.9 Decreased appetite R63.0 Assessment & Plan Assessment & Plan (1) Mild recurrent major depression: Code(s): F33.0 - Major depressive disorder, recurrent, mild Category: Medical Plan: Currently following with Psychiatry. Continue current regimen (2) Generalized anxiety disorder: Comment: [id number] Code(s): F41.1 - Generalized anxiety disorder Category: Medical Plan: As above (3) Abdominal pain: Code(s): R10.9 - Unspecified abdominal pain Category: Medical Plan: Abdominal ultrasound and labs ordered today. We will check a UA as well. I have encouraged her to do a short term follow up within a week. Sooner if anything worsens or changes. Continue with the Nexium. We reviewed signs and symptoms of abdominal pain that would require emergent medical treatment. I have encouraged her to keep her food very bland. (4) Decreased appetite: Code(s): R63.0 - Anorexia Category: Medical Plan: As above. Orders: Orders Complete Blood Count Auto Diff 04/04/25 F33.0 - Major depressive disorder, recurrent, mild, F41.1 - Generalized anxiety disorder, R10.9 - Unspecified abdominal pain, R63.0 - Anorexia Comprehensive Met. Panel 04/04/25 F33.0 - Major depressive disorder, recurrent, mild, F41.1 - Generalized anxiety disorder, R10.9 - Unspecified abdominal pain, R63.0 - Anorexia US abdomen complete 04/04/25 F33.0 - Major depressive disorder, recurrent, mild, F41.1 - Generalized anxiety disorder, R10.9 - Unspecified abdominal pain, R63.0 - Anorexia UA CC w/rflx Micro + Cult 04/04/25 R30.0 - Dysuria
[2025-04-04 13:19] VITALS: BP 129/79; PULSE 71; RESP 14; TEMP 36.6; O2SAT 99; BMI 32.4
--- OUTSIDE RECORDS SUMMARY | 2025-04-04 14:29 | XMS_ITS | Clinical Summary ---
Author Organization [facility] Address [address] [place] [address] Phone Care Team Providers Care Internet Programmer Name Role Phone Trisha Aaron MD Primary Care Provider [phone] Allergies Active Allergy Reactions Criticality Noted Date [...] days. 02/04/20 18 Active miscellaneous medical supply [facility] [place]IS. DEVICES (BED WEDGE) [facility] 1 Device by Does not apply route [...] reveal sleep apnea or nocturnal hypoxia. Immunizations Immunization Administration Dates Next Due Influenza Quadravalent, MDCK , 0.5ml, preservative free (Flucelvax) 6mo and older 04/06/2018 Surgical History Surgery Date Site/Laterality Comments OTHER SURGICAL HISTORY PROCEDURE: [place] [facility] WRST EXC&/RPR TRIANG FIBROCART&/JOINT SECTION PROCEDURE: HISTORICAL DELIVERY CHOLECYSTECTOMY CARPAL TUNNEL RELEASE Bilateral MENISCECTOMY Right Medical History Medical History Date Comments Asthma DX:Asthma Carpal tunnel syndrome DX:Carpal tunnel syndrome Hypertension DX:Hypertension Depression DX:Depression Gastritis DX:Gastritis Pneumonia 2016 DX:Pneumonia; CO MMENT: hospitalized in 2017 Anxiety Arthritis Neuromuscular disorder ([facility] V24, [facility] V28) Sleep apnea GERD (gastroesophageal reflux disease) [...] Description 04/20/2025 7:30 AM EST Hospital Encounter [facility] OR [address] [place] [phone] Kenneth Bucio DPM [address] [address] 04/20/2025 7:30 AM EST - 04/20/2025 10:00 AM EST Surgery [facility] Main OR [address] [place] [phone] Kenneth Bucio DPM [address] [address] LEFT ANKLE LATERAL STABILIZATION [90410 (CPT )] 05/03/2025 10:00 AM EST Office Visit Orthopedic Surgery - [place] [address] [phone] Kenneth Bucio DPM [address] [address] Scheduled Procedures Name Priority Associated Diagnoses Date/Ti [...] Date Diagnosed Date Autogenerated Problem 03/22/2025 Insurance [employer] PLAN Care Teams Internet Programmer Relationship Specialty Start Date End Date Trisha Aaron MD [address] [place] [address] , [address] [facility] [place] PCP - General Internal Medicine 12/31/17
== END 2025-04-04 13:46 | disposition home or self-care (01) ==
LOC: HO.HMCFM 12:56
PROVIDERS: PCP Physician Assistant; Visit Provider Physician Assistant
DX: F33.0 Major depressive disorder, recurrent, mild (principal); F41.1 Generalized anxiety disorder; R10.9 Unspecified abdominal pain; R63.0 Anorexia